=== PATIENT | male | born 1940 | race Caucasian/White ===

== ENCOUNTER 2017-02-04 13:30 | Inpatient (IN) | payer MEDICARE, BC ==
[2017-02-04] MEDS: SODIUM CHLORIDE 0.9% 1,000 ML IV SCH (15:53)
[2017-02-04 16:02] LABS: Basophils % (A) 0 %; CH 32.2; CHCM 34.4; Eosinophils # (A) 0.2 k/uL (0-0.7); Eosinophils % (A) 3 %; HCT 37.2 % (39.0-53.0); HGB 12.9 gm/dL (13.0-17.5); Luc # (Auto) 0.14; Luc % (Auto) 2; Lymphocytes # (A) 0.8 k/uL (1.0-4.8); Lymphocytes % (A) 12 %; MCH 32.6 pg (25.0-35.0); MCHC 34.7 g/dL (31.0-37.0); Monocytes # (A) 0.5 k/uL (0-1.0); Monocytes % (A) 7 %; Neutrophils # (A) 5.2 k/uL (1.3-7.7); Neutrophils % (A) 75 %; RBC 3.96 m/uL (4.30-5.90); RDW 13.2 % (11.5-15.5); WBC 6.9 k/uL (3.8-10.6); WBC (Perox) 7.45
[2017-02-04 16:07] LABS: INR 1.1 (<1.1); Prothrombin Time 10.8 sec (9.0-12.0)
[2017-02-04 16:15] LABS: Calcium 8.7 mg/dL (8.4-10.2); Potassium 4.5 mmol/L (3.5-5.1); Total Bilirubin 0.7 mg/dL (0.2-1.3); Total Protein 6.5 g/dL (6.3-8.2)
[2017-02-04] MEDS ORDERED: PIPERACILLIN-TAZOBACTAM 3.375 GM in DEXTROSE/WATER 1 50ML.BAG IVPB STA (16:44)
[2017-02-04] MEDS ORDERED: IPRATROPIUM BROMIDE 0.06% NASAL SPRAY (15 ML) EA NOSTRIL PRN (16:45)
[2017-02-04] MEDS: ISOSORBIDE MONONITRATE ER 30 MG TAB.ER.24H PO SCH (18:01)
[2017-02-04] MEDS: FUROSEMIDE 80 MG TAB PO SCH (18:01)
[2017-02-04] MEDS: CARVEDILOL 12.5 MG TAB PO SCH (18:01)
--- NOTE | 2017-02-04 19:08 | XR ---
EXAMINATION TYPE: XR foot complete RT DATE OF EXAM: 02/04/2017 5:41 PM COMPARISON: NONE HISTORY: Attention right great toe for osteomyelitis TECHNIQUE: AP and lateral and oblique radiographs FINDINGS: Semination of the great toe shows no cortical disruption and no focal osteopenia. Therefore , no radiographic evidence of osteomyelitis. The joints are unremarkable other than scattered relatively mild osteoarthritis changes. The soft tissues show prominently calcified arterial structures throughout the foot, consistent with widespread atherosclerosis. There are is no soft tissue emphysema, no radiopaque foreign body, and no definite focal soft tissue finding. IMPRESSION: Negative for radiographic evidence of osteomyelitis.
[2017-02-04 20:31] LABS: Glucose,Whole Blood 189 mg/dL (75-99)
[2017-02-04] MEDS ORDERED: [UNRECOGNIZED DRUG - OTHER] PO SCH (21:00)
[2017-02-04] MEDS: hydrALAZINE HCL 50 MG TAB PO SCH (22:13)
[2017-02-04] MEDS: ASCORBIC ACID 500 MG TAB PO SCH (22:14)
[2017-02-04] MEDS: GABAPENTIN 300 MG CAP PO SCH (22:14)
[2017-02-04] MEDS: INSULIN LISPRO (humaLOG) 300 UNIT/3 ML VIAL SQ SCH (23:15)
[2017-02-04] MEDS: INSULIN GLARGINE 100 UNIT/ML 10 ML VIAL SQ SCH (23:15)
[2017-02-05 07:27] LABS: Glucose,Whole Blood 153 mg/dL (75-99)
[2017-02-05] MEDS ORDERED: INSULIN LISPRO (humaLOG) 300 UNIT/3 ML VIAL SQ SCH (07:30)
[2017-02-05] MEDS: CARVEDILOL 12.5 MG TAB PO SCH ×2 (08:20→16:20)
[2017-02-05] MEDS: SODIUM CHLORIDE 0.9% 1,000 ML IV SCH ×2 (08:20→13:48)
[2017-02-05] MEDS: INSULIN LISPRO (humaLOG) 300 UNIT/3 ML VIAL SQ SCH ×4 (08:21→21:23)
[2017-02-05] MEDS: ASPIRIN 81 MG CHEW PO SCH (08:22)
[2017-02-05] MEDS: PANTOPRAZOLE 40 MG TABLET PO SCH (08:22)
--- NOTE | 2017-02-05 08:22 | HP ---
DATE OF ADMISSION: CHIEF COMPLAINT: A 76-year-old white male being admitted with failed outpatient treatment for abscess, cellulitis diabetic wound infection in the right great toe with a huge ulceration anteriorly. HISTORY OF PRESENT ILLNESS: This is a 76-year-old white male with long-standing diabetes mellitus, hypertension, coronary artery disease, GERD, obesity, hypertension with actually good control of his diabetes with a recent hemoglobin A1c in the sixes. He developed apparently a diabetic wound infection for the past 2 weeks, progressively worsening with open purulent exudate coming out of the anterior great toe on the right foot to point with significant infection in the entire right toe ( ) up to his mid foot. At which time, he was admitted with IV antibiotics with infectious disease consult and vascular surgery consult. Home medications include: 1. Aspirin 81 daily. 2. Coreg 25 b.i.d. 3. Multiple vitamins. 4. Folic acid 0.5 mg daily. 5. Lasix 80 mg b.i.d. 6. Neurontin 300 b.i.d. 7. Apresoline 50 ( ). 8. Lantus 30 units subcu b.i.d. 9. Atrovent nasal spray daily. 10. Imdur 30 daily. 11. Singulair 10 daily. 12. Protonix 40 daily. REVIEW OF SYSTEMS: Fourteen-point review of systems negative except for as mentioned in HPI. PHYSICAL EXAM: Temp 97 to 98, pulse is 70s, respirations 16 to 20, blood pressure is 150s to 170s over 70s to 80s. O2 is 95% on room air. ENDOCRINE: BMI is over 40. CARDIOVASCULAR: S1, S2. Lungs show scattered wheeze, otherwise clear. GI is distended, obesity. Extremities show great toe red to the mid foot and the entire right great toe is red with a 0.25 cm ulceration of the anterior great toe. ASSESSMENT: 1. Acute diabetic wound infection, diabetic ulcer, rule out osteomyelitis of the great toe extending to the mid foot. IV antibiotics have been started. ( ) infectious disease and vascular surgery consultation. 2. Accu-Chek protocol ( ) for diabetes mellitus. 3. Hypertension. 4. Coronary artery disease will be treated with home medications.
[2017-02-05] MEDS: FAMOTIDINE 20 MG TAB PO SCH (08:23)
[2017-02-05] MEDS: MONTELUKAST 10 MG TAB PO SCH (08:23)
[2017-02-05] MEDS: ASCORBIC ACID 500 MG TAB PO SCH ×3 (08:23→21:23)
[2017-02-05] MEDS: hydrALAZINE HCL 50 MG TAB PO SCH ×3 (08:23→21:25)
[2017-02-05] MEDS: GABAPENTIN 300 MG CAP PO SCH ×2 (08:24→21:23)
[2017-02-05] MEDS: FUROSEMIDE 80 MG TAB PO SCH ×2 (08:24→16:20)
[2017-02-05] MEDS: INSULIN GLARGINE 100 UNIT/ML 10 ML VIAL SQ SCH ×2 (08:25→21:22)
[2017-02-05 08:58] LABS: Prothrombin Time 10.6 sec (9.0-12.0)
[2017-02-05] MEDS ORDERED: NON-FORMULARY DRUG (Omega-3 Fatty Acids/Fish Oil [Fish Oil 1,000 Mg Softgel] 1 CAP) PO SCH (09:00)
[2017-02-05] MEDS ORDERED: NON-FORMULARY DRUG (Ubidecarenone [Co Q-10] 30 MG) PO SCH (09:00)
[2017-02-05 10:37] LABS: Hemoglobin A1C 5.8 % (4.2-6.1)
--- NOTE | 2017-02-05 11:53 | P.PN ---
Subjective 76-year-old male seen and examined this morning currently sitting on the edge of the bed. This gentleman was a direct admission from Dr. Knapp's office after patient was being seen for diabetic wound in the right great toe failed outpatient treatment currently there is a infectious disease as well as a vascular consultation requested. Patient stated that he developed the injury to the right great toe 2 weeks ago. He stated it got progressively worse was draining purulent drainage from the anterior portion of the right great toe. There was significant tenderness. On admission the patient did have an x-ray done of the right great told to evaluate for osteomyelitis he was negative by radiographic evidence of osteomyelitis Objective - Vital Signs Vital signs: Vital Signs Temp 97.4 F L 02/05/17 07:00 Pulse 72 02/05/17 08:00 Resp 16 02/05/17 08:00 BP 174/79 02/05/17 07:00 Pulse Ox 95 02/05/17 07:00 Intake & Output 02/04/17 02/05/17 02/05/17 18:59 06:59 18:59 Intake Total 1515 Balance 1515 Weight 96.615 kg 96.615 kg Intake: IV 675 Sodium Chloride 0.9% 1, 675 000 ml @ 75 mls/hr IV . [id number] [facility] Rx#:[id number] Oral 840 Other: Voiding Method Toilet Toilet # Voids 1 1 - Exam Physical exam 76-year-old man sitting up on the edge of the bed appears in no acute distress pleasant cooperative oriented 3 Lungs essentially clear adequate air movement no shortness of breath on room air Heart S1-S2 audible and regular denying chest pain Abdomen soft nontender Extremities upper extremities unremarkable dressing to the right great toe dry - Labs CBC & Chem 7: 02/04/17 15:45 02/04/17 15:45 Labs: Abnormal Lab Results - Last 24 Hours (Table) 02/04/17 02/04/17 02/04/17 Range/Units 15:45 15:45 20:30 RBC 3.96 L (4.30-5.90) m/uL Hgb 12.9 L (13.0-17.5) gm/dL Hct 37.2 L (39.0-53.0) % Plt Count 131 L (150-450) k/uL Lymphocytes # 0.8 L (1.0-4.8) k/uL BUN 67 H (9-20) mg/dL Creatinine 2.65 H (0.66-1.25) mg/dL Glucose 123 H (74-99) mg/dL POC Glucose (mg/dL) 189 H (75-99) mg/dL 02/05/17 Range/Units 07:25 RBC (4.30-5.90) m/uL Hgb (13.0-17.5) gm/dL Hct (39.0-53.0) % Plt Count (150-450) k/uL Lymphocytes # (1.0-4.8) k/uL BUN (9-20) mg/dL Creatinine (0.66-1.25) mg/dL Glucose (74-99) mg/dL POC Glucose (mg/dL) 153 H (75-99) mg/dL Assessment and Plan Plan: Impression X-ray right foot negative for evidence of osteomyelitis Present on admission acute diabetic wound infection right great toe failed outpatient treatment Hypertension Present on admission ulcerative area to the right anterior great toe Type 2 diabetes insulin requiring hemoglobin A1c 5.1 Plan Await infectious diseases recommendations [facility] Await vascular surgery's recommendations currently pending Resume home meds as appropriate Monitor blood sugars address as indicated DVT and GI prophylaxis Further recommendations pendingThe above dictated assessment and findings were discussed with dr ra Loya and the plan of care have been dictated as directed. She Liu nurse practitioner acting as a scribe for dr knapp.
[2017-02-05 11:57] VITALS: BMI 31.4
[2017-02-05 12:02] LABS: Glucose,Whole Blood 202 mg/dL (75-99)
[2017-02-05] MEDS: CHOLECALCIFEROL 1,000 UNIT TAB PO SCH (12:21)
[2017-02-05] MEDS: FOLIC ACID 1 MG TAB PO SCH (12:22)
[2017-02-05] MEDS: CYANOCOBALAMIN 500 MCG TAB PO SCH (12:22)
[2017-02-05] MEDS: HEPARIN SODIUM,PORCINE 5,000 UNIT/ML 1 ML VIAL SQ SCH ×2 (13:47→23:52)
[2017-02-05] MEDS ORDERED: PIPERACILLIN-TAZOBACTAM 3.375 GM in DEXTROSE/WATER 1 50ML.BAG IVPB SCH (16:00)
[2017-02-05] MEDS: AMPICILLIN-SULBACTAM 3 GM in SODIUM CHLORIDE 0.9% 100 ML IVPB SCH ×2 (16:17→23:51)
--- NOTE | 2017-02-05 16:27 | CONS ---
DATE OF CONSULTATION: 02/05/2017 REASON FOR CONSULTATION: Left big toe wound. HISTORY OF PRESENT ILLNESS: The patient is a 76-year-old male with a past medical history significant for diabetes mellitus. The patient did develop a blister on the dorsal aspect of his left big toe a few weeks ago. The patient has been using some old shoes and may have caused some trauma to it, with development of this blister. The blister opened up, leading to a wound. The patient said that the area was becoming more swollen and red, hot. The patient does have diabetic neuropathy and denies any significant pain there. There is no significant drainage from it. The patient denies any high-grade fever or chills. The patient does mention there was some purulent material coming out of it. With these symptoms, the patient was evaluated by his PCP in the office. The patient was subsequently admitted directly to the hospital and started on Zosyn. I was asked to see the patient for further recommendation regarding antibiotic therapy. REVIEW OF SYSTEMS: CONSTITUTIONAL: Positive for weakness. No high-grade fever. EYES: No complaint. ENT: No complaint. RESPIRATORY: No complaint. CARDIOVASCULAR: No complaint. GENITOURINARY: No complaint. GASTROINTESTINAL: No complaint. MUSCULOSKELETAL: As per HPI. INTEGUMENTARY: As per HPI. PSYCHOLOGIC: No complaint. ENDOCRINE: No complaint. NEUROLOGIC: No complaint. Past medical history is significant for: 1. Diabetes mellitus. 2. Coronary artery disease. 3. Hypertension. 4. Gastroesophageal reflux disease. 5. Asthma. SOCIAL HISTORY: Remote history of smoking. No drinking or drug use. FAMILY HISTORY: No pertinent findings were noticed. ALLERGIES: NO KNOWN DRUG ALLERGIES. Medications currently include: 1. Aspirin. 2. Coreg. 3. Vitamin D3. 4. Vitamin B12. 5. Pepcid. 6. Folic acid. 7. Lasix. 8. Neurontin. 9. Heparin. 10. Hydralazine. 11. Lantus. 12. Humalog. 13. Imdur. 14. Singulair. 15. Protonix. 16. Piperacillin tazobactam. On examination, blood pressure is 174/79 with a pulse of 73, temperature 97.4. He is 95% on room air. General description is an elderly male lying in bed in no distress. No tachypnea or accessory muscle of respiration use. HEENT examination shows slight pallor. No scleral icterus. Oral mucous membrane is dry. NECK: Trachea is central. No thyromegaly. LUNGS: Unlabored breathing. Clear to auscultation anteriorly. No wheeze or crackle. HEART: S1, S2. Regular rate and rhythm. ABDOMEN: Soft. No tenderness. EXTREMITIES: No edema of feet. Examination of the left big toe did show a wound on the dorsum aspect with a slight amount of slough tissue, some surrounding erythema. No foul-smelling drainage was noticed. NEUROLOGICAL: Patient is awake, alert, oriented x3. Mood and affect normal. LABS: Hemoglobin is 12.3, white count 6.9 with a BUN of 67, creatinine 2.65. No culture has been obtained. DIAGNOSTIC IMPRESSION AND PLAN: Patient with a left diabetic foot ulcer on the dorsal aspect of the left big toe in a patient with underlying diabetes, not exposed to any antibiotics in the recent past; could be more likely a sensitive pathogen; more likely a Gram-positive; however, a Gram-negative is not excluded in view of underlying diabetes mellitus. With the chronicity of this wound, we will have to make sure there is no evidence of any osteomyelitis. PLAN: 1. Wound culture has been obtained, both aerobic and anaerobic. Will obtain blood cultures at this time. 2. Antibiotic will be adjusted to Unasyn 3 grams q.8 to adjust for his kidney function. 3. Will obtain a bone scan of his left foot to make sure there is no evidence of any osteomyelitis. 4. Local wound care with the Santyl followed by moist dressing. 5. Will follow up on the clinical condition and cultures to further adjust medication if needed. Thank you for this consultation. Will follow this patient along with you.
[2017-02-05 17:28] LABS: Glucose,Whole Blood 111 mg/dL (75-99)
[2017-02-05] MEDS: ISOSORBIDE MONONITRATE ER 30 MG TAB.ER.24H PO SCH (17:28)
[2017-02-05 21:24] LABS: Glucose,Whole Blood 197 mg/dL (75-99)
[2017-02-05] MEDS: COLLAGENASE 250 UNIT/GM OINTMENT 30 GM TUBE TOPICAL SCH (21:24)
[2017-02-06 07:18] LABS: Glucose,Whole Blood 97 mg/dL (75-99)
[2017-02-06] MEDS: INSULIN LISPRO (humaLOG) 300 UNIT/3 ML VIAL SQ SCH ×4 (07:28→20:33)
[2017-02-06] MEDS: AMPICILLIN-SULBACTAM 3 GM in SODIUM CHLORIDE 0.9% 100 ML IVPB SCH ×2 (07:29→19:54)
[2017-02-06] MEDS: PANTOPRAZOLE 40 MG TABLET PO SCH (07:29)
--- NOTE | 2017-02-06 07:32 | NM ---
EXAMINATION TYPE: NM bone 3 phase DATE OF EXAM: 02/05/2017 10:42 PM COMPARISON: Correlation radiographs 02/04/2017 HISTORY: 76-year-old male with pain at the left great toe, lateral aspect (per the provided history o n the work sheet) for 2 weeks. Nonhealing ulcer, evaluate for osteomyelitis. TECHNIQUE: Triple phase bone scintigraphy was performed following the injection of24.2 mCi Tc 99m MDP . Immediate images and 5 hours post injection images acquired. Imaging is performed of the bilateral distal lower extremities. FINDINGS: Flow images show focal hyperemia involving the left great toe. There is increased focal activity in t his location on pool imaging as well. On delayed images, focal increased tracer activity is noted in this region. Additional delayed uptake seen at the right great toe and bilateral midfoot regions suggestive of a d egenerative etiology. IMPRESSION: There is three-phase bone scan abnormality involving the left great toe. In the correct clinical set ting, findings would suggest osteomyelitis.
[2017-02-06] MEDS: MONTELUKAST 10 MG TAB PO SCH (07:39)
[2017-02-06] MEDS: HEPARIN SODIUM,PORCINE 5,000 UNIT/ML 1 ML VIAL SQ SCH ×3 (07:40→23:54)
[2017-02-06] MEDS: ASCORBIC ACID 500 MG TAB PO SCH ×3 (07:40→20:35)
[2017-02-06] MEDS: FUROSEMIDE 80 MG TAB PO SCH ×2 (07:40→17:08)
[2017-02-06] MEDS: GABAPENTIN 300 MG CAP PO SCH ×2 (07:40→20:35)
[2017-02-06] MEDS: ASPIRIN 81 MG CHEW PO SCH (07:40)
[2017-02-06] MEDS: FAMOTIDINE 20 MG TAB PO SCH (07:40)
[2017-02-06] MEDS: CARVEDILOL 12.5 MG TAB PO SCH ×2 (07:46→17:10)
[2017-02-06] MEDS: COLLAGENASE 250 UNIT/GM OINTMENT 30 GM TUBE TOPICAL SCH (07:47)
[2017-02-06] MEDS: hydrALAZINE HCL 50 MG TAB PO SCH ×3 (07:48→20:35)
[2017-02-06] MEDS: INSULIN GLARGINE 100 UNIT/ML 10 ML VIAL SQ SCH ×2 (07:55→20:35)
[2017-02-06 09:10] LABS: Calcium 8.9 mg/dL (8.4-10.2); Potassium 4.1 mmol/L (3.5-5.1); Total Bilirubin 0.7 mg/dL (0.2-1.3); Total Protein 6.5 g/dL (6.3-8.2)
[2017-02-06 12:20] LABS: Glucose,Whole Blood 173 mg/dL (75-99)
[2017-02-06] MEDS: FOLIC ACID 1 MG TAB PO SCH (12:50)
[2017-02-06] MEDS: CHOLECALCIFEROL 1,000 UNIT TAB PO SCH (12:51)
[2017-02-06] MEDS: CYANOCOBALAMIN 500 MCG TAB PO SCH (12:51)
[2017-02-06] MEDS: SODIUM CHLORIDE 0.9% 1,000 ML IV SCH (17:06)
[2017-02-06 17:33] LABS: Glucose,Whole Blood 164 mg/dL (75-99)
[2017-02-06] MEDS: ISOSORBIDE MONONITRATE ER 30 MG TAB.ER.24H PO SCH (18:23)
[2017-02-06 20:38] LABS: Glucose,Whole Blood 166 mg/dL (75-99)
[2017-02-06] MEDS ORDERED: hydrALAZINE HCL 50 MG TAB PO ONE (20:45)
--- NOTE | 2017-02-06 20:53 | PN ---
SUBJECTIVE: This is a 76-year-old white male who presents with osteomyelitis of the great toe. He remains on Unasyn IV at this time q.6 hours. Bone scan shows positive osteomyelitis in the great toe. Santyl is being applied to open wound. IV Unasyn is being continued. The patient continues to improve. VITAL SIGNS: Stable, afebrile. CARDIOVASCULAR: S1, S2. Lungs clear. Creatinine ( ) GFR is 29, which is increased from recent. Await PICC line placed on Wednesday and home IV antibiotics is being set up. Continue with wound dressings as tolerated. Blood pressure, hypertension acceleration due to osteomyelitis and osteomyelitis of the great toe. Hydralazine will be increased from 50 to 75 mg t.i.d. Continue next treatment.
[2017-02-07] MEDS: CARVEDILOL 12.5 MG TAB PO SCH ×2 (07:27→17:37)
[2017-02-07] MEDS: GABAPENTIN 300 MG CAP PO SCH ×2 (07:27→21:01)
[2017-02-07] MEDS: ASPIRIN 81 MG CHEW PO SCH (07:27)
[2017-02-07] MEDS: FUROSEMIDE 80 MG TAB PO SCH ×2 (07:27→16:22)
[2017-02-07] MEDS: HEPARIN SODIUM,PORCINE 5,000 UNIT/ML 1 ML VIAL SQ SCH ×3 (07:28→23:20)
[2017-02-07] MEDS: PANTOPRAZOLE 40 MG TABLET PO SCH (07:28)
[2017-02-07] MEDS: ASCORBIC ACID 500 MG TAB PO SCH ×3 (07:28→21:01)
[2017-02-07] MEDS: hydrALAZINE HCL 25 MG TAB PO SCH ×3 (07:29→21:03)
[2017-02-07] MEDS: INSULIN LISPRO (humaLOG) 300 UNIT/3 ML VIAL SQ SCH ×4 (07:29→21:01)
[2017-02-07] MEDS: COLLAGENASE 250 UNIT/GM OINTMENT 30 GM TUBE TOPICAL SCH (07:30)
[2017-02-07 07:35] LABS: Glucose,Whole Blood 119 mg/dL (75-99)
[2017-02-07] MEDS: INSULIN GLARGINE 100 UNIT/ML 10 ML VIAL SQ SCH ×2 (07:42→21:00)
[2017-02-07] MEDS: FAMOTIDINE 20 MG TAB PO SCH (07:47)
[2017-02-07] MEDS: MONTELUKAST 10 MG TAB PO SCH (07:47)
[2017-02-07 07:55] LABS: Basophils % (A) 0 %; CH 32.1; CHCM 33.7; Eosinophils # (A) 0.2 k/uL (0-0.7); Eosinophils % (A) 4 %; HDW 2.97; HGB 12.6 gm/dL (13.0-17.5); Luc # (Auto) 0.14; Luc % (Auto) 2; Lymphocytes # (A) 0.7 k/uL (1.0-4.8); Lymphocytes % (A) 11 %; MCH 31.8 pg (25.0-35.0); MCHC 33.2 g/dL (31.0-37.0); MCV 95.6 fL (80.0-100.0); Mean Platelet Volume 7.1; Monocytes # (A) 0.4 k/uL (0-1.0); Monocytes % (A) 6 %; Neutrophils # (A) 4.8 k/uL (1.3-7.7); Neutrophils % (A) 77 %; RBC 3.97 m/uL (4.30-5.90); RDW 13.3 % (11.5-15.5); WBC 6.3 k/uL (3.8-10.6); WBC (Perox) 6.64
[2017-02-07 08:23] LABS: Total Bilirubin 0.7 mg/dL (0.2-1.3); Total Protein 6.5 g/dL (6.3-8.2)
[2017-02-07] MEDS: AMPICILLIN-SULBACTAM 3 GM in SODIUM CHLORIDE 0.9% 100 ML IVPB SCH ×2 (09:15→21:00)
[2017-02-07 12:09] LABS: Glucose,Whole Blood 203 mg/dL (75-99)
[2017-02-07] MEDS: CYANOCOBALAMIN 500 MCG TAB PO SCH (12:21)
[2017-02-07] MEDS: CHOLECALCIFEROL 1,000 UNIT TAB PO SCH (12:21)
[2017-02-07] MEDS: FOLIC ACID 1 MG TAB PO SCH (12:22)
[2017-02-07] MEDS: SODIUM CHLORIDE 0.9% 1,000 ML IV SCH (16:16)
[2017-02-07 16:28] VITALS: TEMP 98.2
[2017-02-07 17:03] LABS: Glucose,Whole Blood 144 mg/dL (75-99)
[2017-02-07] MEDS: ISOSORBIDE MONONITRATE ER 30 MG TAB.ER.24H PO SCH (17:37)
--- NOTE | 2017-02-07 18:36 | PN ---
SUBJECTIVE: A 76-year-old white male who wound with positive osteomyelitis. Remains on IV antibiotics. Awaiting PICC line placement tomorrow and infectious disease recommendations for long-term PICC line antibiotics. His GFR is 24 today with creatinine 2.61. Glucose has been 100s. CARDIOVASCULAR: S1, S2. LUNGS: Clear. GI: Soft. HEMATOLOGIC: Negative Homans. PSYCHIATRIC: Fair mood and affect. ASSESSMENT: 1. Osteomyelitis of the great toe of the right foot, waiting PICC line placement, long-term antibiotics be given. 2. Diabetes mellitus. 3. Hypertension are controlled. 4. Obesity, weight loss counseling was given.
[2017-02-07 20:30] LABS: Glucose,Whole Blood 175 mg/dL (75-99)
[2017-02-07 22:29] VITALS: RESP 16
[2017-02-08 07:35] LABS: Glucose,Whole Blood 101 mg/dL (75-99)
[2017-02-08 08:20] VITALS: BP 161/74; PULSE 74
[2017-02-08] MEDS: CARVEDILOL 12.5 MG TAB PO SCH (08:24)
[2017-02-08] MEDS: hydrALAZINE HCL 25 MG TAB PO SCH (08:25)
[2017-02-08] MEDS: INSULIN LISPRO (humaLOG) 300 UNIT/3 ML VIAL SQ SCH ×2 (08:25→12:00)
[2017-02-08] MEDS: GABAPENTIN 300 MG CAP PO SCH (08:25)
[2017-02-08] MEDS: PANTOPRAZOLE 40 MG TABLET PO SCH (08:26)
[2017-02-08] MEDS: MONTELUKAST 10 MG TAB PO SCH (08:26)
[2017-02-08 08:32] LABS: Calcium 9.1 mg/dL (8.4-10.2); Potassium 4.1 mmol/L (3.5-5.1); Total Bilirubin 0.7 mg/dL (0.2-1.3); Total Protein 6.7 g/dL (6.3-8.2)
[2017-02-08] MEDS: HEPARIN SODIUM,PORCINE 5,000 UNIT/ML 1 ML VIAL SQ SCH (08:33)
[2017-02-08] MEDS: ASCORBIC ACID 500 MG TAB PO SCH (08:33)
[2017-02-08] MEDS: AMPICILLIN-SULBACTAM 3 GM in SODIUM CHLORIDE 0.9% 100 ML IVPB SCH (08:33)
[2017-02-08] MEDS: FAMOTIDINE 20 MG TAB PO SCH (08:34)
[2017-02-08] MEDS: ASPIRIN 81 MG CHEW PO SCH (08:34)
--- NOTE | 2017-02-08 08:51 | PN ---
DATE OF SERVICE: 02/07/2017 REASON FOR FOLLOW-UP: Left big toe osteomyelitis. INTERVAL HISTORY: The patient is afebrile. He has been breathing comfortably. Denies significant chest pain or cough. No abdominal pain or any worsening pain in the foot area. On examination, blood pressure is 147/67 with a pulse of 75, temperature 98.2, he is 95% on room air. General description is an elderly male up in the chair in no distress. RESPIRATORY SYSTEM: Unlabored breathing. Clear to auscultation anteriorly. HEART: S1, S2. Regular rate and rhythm. ABDOMEN: Soft, no tenderness. Left big toe with minimal slough tissue on the wound and surrounding redness and swelling has improved. LABS: Hemoglobin 12.6, white count 6.3. BUN is 15, creatinine is 2.61. Wound culture with normal skin tammie. The bone scan is suspicious for osteomyelitis. DIAGNOSTIC IMPRESSION AND PLAN: Patient with left big toe wound with underlying osteomyelitis. PLAN: At this time is to get a PICC line for outpatient IV antibiotic therapy. Continue local wound care with Santyl and continue with IV Unasyn at this point. Continue supportive care. ESTHERD
--- NOTE | 2017-02-08 10:38 | IR ---
PICC LINE PLACEMENT: HISTORY: Infection requiring long-term antibiotic therapy PROCEDURE: Ultrasound and fluoroscopic guidance of PICC line placement. COMPLICATIONS: None ANESTHESIA: 1. 1% Lidocaine locally. FINDINGS/TECHNIQUE: The procedure was explained to the patient. The risks, complications, benefits and alternatives were discussed and any questions were answered. Informed consent was obtained. The patient was placed supine on the fluoroscopic table and prepped and draped in the usual sterile [facility] ion. Utilizing a 21 gauge needle and sonographic and fluoroscopic guidance, access in the vein was achieved and there is placement of a 0.018 guidewire. The vein is patent. A 4-F sheath was placed o yang the guidewire. The guidewire and dilator were removed and a 4-F. PICC line was placed through th e sheath with the tip at the level of the SVC. The sheath was removed, the catheter was flushed and sutured into position. The patient was stable throughout the procedure and remained stable upon disc harge from the Department of Radiology. The vein puncture was patent under ultrasound. A du scale image was obtained to document patency of the vein punctured. All elements of the maximal barrier technique were utilized. FLUOROSCOPY TIME: 0.3 minute IMPRESSION: Successful PICC line placement under ultrasound and fluoroscopic guidance.
[2017-02-08 11:41] LABS: Glucose,Whole Blood 130 mg/dL (75-99)
[2017-02-08] MEDS: COLLAGENASE 250 UNIT/GM OINTMENT 30 GM TUBE TOPICAL SCH (11:59)
[2017-02-08] MEDS: INSULIN GLARGINE 100 UNIT/ML 10 ML VIAL SQ SCH (12:00)
[2017-02-08] MEDS: CYANOCOBALAMIN 500 MCG TAB PO SCH (12:21)
[2017-02-08] MEDS: FOLIC ACID 1 MG TAB PO SCH (12:21)
[2017-02-08] MEDS: FUROSEMIDE 80 MG TAB PO SCH (12:21)
[2017-02-08] MEDS: CHOLECALCIFEROL 1,000 UNIT TAB PO SCH (12:21)
--- NOTE | 2017-02-08 12:54 | P.DS ---
Providers Date of admission: 02/04/17 14:57 Expected date of discharge: 02/08/17 Attending physician: Adán Knapp Consults: 02/04/17 15:21 Consult Physician Urgent Consulting Provider: Selene Garcia Consult Reason/Comments: Cellulitis left foot Do you want consulting provider notified?: Yes 02/04/17 16:50 Consult Physician Routine Consulting Provider: Dale Hooker Consult Reason/Comments: toe ulcer Do you want consulting provider notified?: Yes Primary care physician: [facility] Course: 76-year-old gentleman who was a direct admit from Dr. Knapp's office on the day of admission. Patient was being seen in the office and a follow-up visit for right great toe ulceration failed outpatient treatment. Patient stated that he developed an injury to the right great toe 2 weeks prior. Had gotten progressively worse. Had develop. Drainage from the anterior portion of the right great toe with significant tenderness. On admission the x-rays of the right rate toe were negative by radiographic evidence of osteomyelitis. An infectious disease consultation was requested the patient did undergo a bone scan it did show abnormality noted of the left great toe. The findings were suggestive of osteomyelitis. Dr. Calderon he did see patient on consultation. Apparently the patient had been wearing some old shoes and this may have been causing the trauma with the development of the blister when the blister opened that led to the wound. As mentioned the patient stated this became more symptomatic. Patient does have a history of diabetic neuropathy. Patient was seen by infectious disease who recommended IV antibiotic therapy infectious disease recommended a PICC line for outpatient IV antibiotic therapy. Local wound care would be cental continue with IV Unasyn continue supportive care. Patient was felt to be hemodynamically stable and appropriate proceed with a discharge to home Impression discharge diagnoses Present on admission acute diabetic wound infection involving the left great toe failed outpatient treatment Present on admission ulcerative area to the left anterior great toe suspect due to trauma Hypertension essential Type 2 diabetes insulin requiring hemoglobin A1c 5.1 Bone scan involving the left great toe suggestive of osteomyelitis Present on admission nonhealing ulcerative area left great toe likely due to osteomyelitis Obesity BMI 31 The above dictated assessment and findings were discussed with dr knapp Impression and the plan of care have been dictated as directed. She Liu nurse practitioner acting as a scribe for dr knapp Plan - Discharge Summary New Discharge Prescriptions: Collagenase [Santyl] 1 applic TOPICAL DAILY #30 dose hydrALAZINE HCL [Apresoline] 75 mg PO TID #90 tab Discharge Medication List Carvedilol 25 mg PO BID 11/12/15 [History] Famotidine 20 mg PO DAILY 11/12/15 [History] Folic Acid 0.4 mg PO DAILY 11/12/15 [History] Furosemide [Lasix] 80 mg PO BID 11/12/15 [History] Gabapentin [Neurontin] 300 mg PO BID 11/12/15 [History] Gluc/Axel-MSM#1/C/Matias/Sam/Bor [Glucosamine-Chondroitin Tablet] 2 tab PO BID [History] Isosorbide Mononitrate [Isosorbide Mononitrate ER] 30 mg PO DAILY@1800 11/12/15 [History] Montelukast [Singulair] 10 mg PO DAILY 11/12/15 [History] Omeprazole [PriLOSEC] 20 mg PO DAILY 11/12/15 [History] Vitamin E (Dl,Tocopheryl Acet) [Vitamin E] 400 unit PO DAILY 11/12/15 [History] Ascorbic Acid [Vitamin C] 1,000 mg PO TID 02/04/17 [History] Aspirin EC [Ecotrin Low Dose] 81 mg PO DAILY 02/04/17 [History] Cholecalciferol [Vitamin D3] 1,000 unit PO DAILY 02/04/17 [History] Cyanocobalamin [Vitamin B-12] 500 mcg PO DAILY 02/04/17 [History] Ipratropium Reynolds 0.06%Nasal [Atrovent Nasal 0.06%] 2 spray EA NOSTRIL QAM PRN 02/04/17 [History] [place]-3 Fatty Acids/Fish Oil [Fish Oil 1,000 mg Softgel] 1 cap PO DAILY [History] Ubidecarenone [Co Q-10] 30 mg PO DAILY 02/04/17 [History] Ampicillin-Sulbactam [Unasyn] 3 gm IVPB Q12HR #0 vial 02/08/17 [Rx] Collagenase [Santyl] 1 applic TOPICAL DAILY #30 dose 02/08/17 [Rx] hydrALAZINE HCL [Apresoline] 75 mg PO TID #90 tab 02/08/17 [Rx] Follow up Appointment(s)/Referral(s): [facility], [NON-STAFF] - As Needed [facility], [REFERRING] - As Needed Dale Hooker DO [Doctor of Osteopathic Medicine] - 02/10/17 (Patient to see Dr. Hooker in the Wound center on Wednesday. Please call tomorrow and confirm appointment time) Adán Knapp MD [Primary Care Provider] - 02/10/17 Discharge Disposition: HOME WITH HOME HEALTH SERVICES
--- NOTE | 2017-02-08 21:24 | PN ---
DATE OF SERVICE: 02/08/2017 REASON FOR FOLLOWUP: Left big toe wound with secondary osteomyelitis. INTERVAL HISTORY: The patient is afebrile. He was seen on rounds this morning. The patient has been waiting for outpatient IV antibiotic therapy for discharge. The patient denies significant chest pain, shortness of breath or cough. No abdominal pain and no significant pain in the left big toe. On examination, blood pressure is 116/74 with a pulse of 74, temperature 98.2. He is 96% on room air. General description is an elderly male, up in the chair in no distress. RESPIRATORY SYSTEM: Unlabored breathing. Clear to auscultation anteriorly. HEART: S1, S2. Regular rate and rhythm. ABDOMEN: Soft. No tenderness. Left big toe was swollen, though slough tissue has decreased. Redness has decreased. LABS: BUN of 69, creatinine 2.70. Sed rate of 22. Wound culture with normal skin tammie. Blood culture negative. DIAGNOSTIC IMPRESSION AND PLAN: Patient with left big toe osteomyelitis, likely from Gram-positive skin tammie in a patient with underlying diabetes being on Unasyn. That will be continued 3 grams twice a day in view of his kidney function for another 6 weeks with weekly monitoring of CBC, BMP and sed rate. Local wound care with Santyl. Prescriptions were written for the patient. Follow up in the office in 2 weeks. DELMER
== END 2017-02-08 14:28 | disposition home health service (06) | DRG 638 ==
LOC: 5MS5E 14:57
PROVIDERS: ADMIT Family Medicine; ATTEND Family Medicine
PROC: 02HV33Z Insertion of Infusion Device into Superior Vena Cava, Percutaneous Approach (ICD-10-PCS; principal; 2017-02-08 10:01)
DX: E11.621 Type 2 diabetes mellitus with foot ulcer (principal); M86.9 Osteomyelitis, unspecified; E11.40 Type 2 diabetes mellitus with diabetic neuropathy, unspecified; I10 Essential (primary) hypertension; E11.69 Type 2 diabetes mellitus with other specified complication; L03.032 Cellulitis of left toe; E11.628 Type 2 diabetes mellitus with other skin complications; I25.10 Atherosclerotic heart disease of native coronary artery without angina pectoris; L97.529 Non-pressure chronic ulcer of other part of left foot with unspecified severity; R53.1 Weakness; E66.9 Obesity, unspecified; K21.9 Gastro-esophageal reflux disease without esophagitis; Z79.82 Long term (current) use of aspirin; Z79.4 Long term (current) use of insulin; Z79.899 Other long term (current) drug therapy; Z71.3 Dietary counseling and surveillance; Z68.31 Body mass index [BMI] 31.0-31.9, adult; Z79.2 Long term (current) use of antibiotics; Z87.891 Personal history of nicotine dependence
CPT/HCPCS: 36569; 76937; 77001; 78315; 80053; 83036; 85025; 85610; 85652; 87040; 87070; 87075; 87205

== ENCOUNTER → 2017-04-14 | Outpatient (CLI) | payer MEDICARE, BC ==
[2017-04-14 10:33] LABS: Basophils % (A) 0 %; CH 32.1; CHCM 34.6; Eosinophils # (A) 0.2 k/uL (0-0.7); Eosinophils % (A) 1 %; HDW 3.02; HGB 13.6 gm/dL (13.0-17.5); Luc # (Auto) 0.15; Luc % (Auto) 1; Lymphocytes # (A) 0.8 k/uL (1.0-4.8); Lymphocytes % (A) 7 %; MCH 31.8 pg (25.0-35.0); MCV 93.3 fL (80.0-100.0); Mean Platelet Volume 7.9; Monocytes # (A) 0.6 k/uL (0-1.0); Monocytes % (A) 5 %; Neutrophils # (A) 9.7 k/uL (1.3-7.7); Neutrophils % (A) 85 %; RBC 4.29 m/uL (4.30-5.90); RDW 14.2 % (11.5-15.5); WBC 11.4 k/uL (3.8-10.6); WBC (Perox) 11.43
[2017-04-14 12:57] LABS: C Reactive Protein 19.4 mg/L (<10.0); Calcium 9.3 mg/dL (8.4-10.2); Potassium 4.4 mmol/L (3.5-5.1)
[2017-04-14 14:17] LABS: Erythrocyte Sedimentation Rate 23 mm/hr (0-15)
== END | disposition home or self-care (01) ==
LOC: LABWHC1 09:56
PROVIDERS: ATTEND Internal Medicine Infectious Disease
DX: M86.8X8 Other osteomyelitis, other site (principal)
CPT/HCPCS: 36415; 80048; 85025; 85652; 86140

== ENCOUNTER → 2017-05-10 | Outpatient (CLI) | payer MEDICARE, BC ==
[2017-05-10 09:57] LABS: Basophils % (A) 0 %; CH 31.6; CHCM 34.3; Eosinophils # (A) 0.2 k/uL (0-0.7); Eosinophils % (A) 2 %; HCT 39.4 % (39.0-53.0); HDW 3.13; HGB 13.5 gm/dL (13.0-17.5); Luc % (Auto) 3; Lymphocytes # (A) 0.7 k/uL (1.0-4.8); Lymphocytes % (A) 9 %; MCH 31.8 pg (25.0-35.0); MCHC 34.3 g/dL (31.0-37.0); MCV 92.7 fL (80.0-100.0); Mean Platelet Volume 6.9; Monocytes # (A) 0.6 k/uL (0-1.0); Monocytes % (A) 7 %; Neutrophils # (A) 6.2 k/uL (1.3-7.7); Neutrophils % (A) 79 %; RBC 4.25 m/uL (4.30-5.90); RDW 13.4 % (11.5-15.5); WBC 7.9 k/uL (3.8-10.6); WBC (Perox) 8.01
[2017-05-10 10:36] LABS: C Reactive Protein 5.9 mg/L (<10.0); Magnesium 2.2 mg/dL (1.6-2.3); Potassium 4.6 mmol/L (3.5-5.1)
[2017-05-10 12:18] LABS: Erythrocyte Sedimentation Rate 22 mm/hr (0-15)
== END | disposition home or self-care (01) ==
LOC: LABWHC1 08:46
PROVIDERS: ATTEND Nurse Practitioner Adult Health
DX: S91.302A Unspecified open wound, left foot, initial encounter (principal); I47.2 Ventricular tachycardia
CPT/HCPCS: 36415; 80048; 83735; 85025; 85652; 86140

== ENCOUNTER → 2017-08-09 | Outpatient (CLI) | payer MEDICARE, BC ==
--- NOTE | 2017-08-09 16:06 | CT ---
EXAMINATION TYPE: CT cervical spine wo con DATE OF EXAM: 08/09/2017 COMPARISON: 10/15/2015 HISTORY: Neck and bilateral shoulder pain CT DLP: [address] of the cervical spine was performed with bone and soft tissue window settings submitted . Coronal and sagittal reconstruction is obtained. C2-3: Within normal limits. C3-4: Severe degenerative disc space narrowing. Posterior disc bulge with encapsulating spur resultin g in disc endplate complex. Effacement ventral thecal sac without disc herniation or central stenosis . Mild right foraminal encroachment. C4-5: Moderate degenerative disc space narrowing. Posterocentral subligamentous disc herniation effac es the ventral thecal sac. No evidence for central stenosis. Mild right-sided foraminal encroachment. C5-6: Moderate degenerative disc space narrowing. Broad-based disc bulge is unchanged. No evidence fo r central stenosis. Mild left-sided foraminal encroachment identified. C6-7: Severe degenerative disc space narrowing. Posterior disc bulge with encapsulating spur resultin g in disc endplate complex. No evidence for central stenosis. Moderate bilateral foraminal encroachme nt. C7-T1: Within normal limits. IMPRESSION: 1. Stable multilevel degenerative disc disease as discussed above.
== END | disposition home or self-care (01) ==
LOC: RADCTMAIN 15:19
PROVIDERS: ATTEND Orthopaedic Surgery Orthopaedic Surgery of the Spine
DX: M50.30 Other cervical disc degeneration, unspecified cervical region (principal)
CPT/HCPCS: 72125

== ENCOUNTER → 2017-08-10 | Outpatient (CLI) | payer MEDICARE, BC ==
--- NOTE | 2017-08-10 10:55 | US ---
EXAMINATION TYPE: US venous doppler duplex LE BI DATE OF EXAM: 08/10/2017 10:17 AM COMPARISON: None CLINICAL HISTORY: 76-year-old male Pain In Limbs M79.606. Right calf pain and left thigh pain noted x 1 week and noted after having to stand on toes and heels upon physical exam. SIDE PERFORMED: Bilateral TECHNIQUE: The lower extremity deep venous system is examined utilizing real time linear array sonog klarissa with graded compression, doppler sonography and color-flow sonography. FINDINGS: VESSELS IMAGED: Common Femoral Vein Deep Femoral Vein Greater Saphenous Vein * Femoral Vein Popliteal Vein Small Saphenous Vein * Proximal Calf Veins (* superficial vessels) Right Leg: Positive for non occluding DVT at lower CFV at saphenofemoral junction. Positive for Superficial Vein Thrombosis in Greater Saphenous Vein from mid calf to groin. Left Leg: Negative for DVT IMPRESSION: 1. Right leg positive for nonocclusive DVT at the lower common femoral vein at the saphenofemoral anitha ction. 2. Right leg positive for SVT involving the greater saphenous vein from the groin down to the mid lola f. 3. Left leg negative for DVT from the groin to the upper calf.
== END | disposition home or self-care (01) ==
LOC: RADUSWWP 09:32
PROVIDERS: ATTEND Family Medicine
DX: I82.411 Acute embolism and thrombosis of right femoral vein (principal); I47.1 Supraventricular tachycardia
CPT/HCPCS: 93970

== ENCOUNTER 2017-09-22 11:42 | Inpatient (IN) | payer MEDICARE, BC ==
[2017-09-22] MEDS ORDERED: MD COMMUNICATION TO PHARMACY 1 EACH MISC PO PRN (14:38)
[2017-09-22 15:56] LABS: Basophils % (A) 0 %; Eosinophils # (A) 0.2 k/uL (0-0.7); Eosinophils % (A) 2 %; HCT 37.2 % (39.0-53.0); HGB 11.7 gm/dL (13.0-17.5); Lymphocytes # (A) 0.8 k/uL (1.0-4.8); Lymphocytes % (A) 9 %; MCHC 31.3 g/dL (31.0-37.0); MCV 95.6 fL (80.0-100.0); Mean Platelet Volume 7.5; Monocytes # (A) 0.5 k/uL (0-1.0); Monocytes % (A) 5 %; Neutrophils # (A) 7.9 k/uL (1.3-7.7); Neutrophils % (A) 83 %; Platelet Count 136 k/uL (150-450); RDW 14.4 % (11.5-15.5); WBC 9.5 k/uL (3.8-10.6)
[2017-09-22 16:03] LABS: INR 2.4 (<1.2); Prothrombin Time 21.2 sec (9.0-12.0)
[2017-09-22 16:12] LABS: Albumin 3.4 g/dL (3.5-5.0); Calcium 8.6 mg/dL (8.4-10.2); Potassium 4.2 mmol/L (3.5-5.1); Total Bilirubin 0.2 mg/dL (0.2-1.3); Total Protein 5.7 g/dL (6.3-8.2)
[2017-09-22] MEDS: ASCORBIC ACID 500 MG TAB PO SCH ×2 (16:35→22:39)
[2017-09-22] MEDS: GABAPENTIN 300 MG CAP PO SCH ×2 (16:35→22:39)
[2017-09-22] MEDS: hydrALAZINE HCL 25 MG TAB PO SCH ×2 (16:35→22:39)
[2017-09-22] MEDS: WARFARIN 5 MG TAB PO SCH (16:36)
[2017-09-22] MEDS: FUROSEMIDE 80 MG TAB PO SCH (16:36)
[2017-09-22] MEDS: [UNRECOGNIZED DRUG - OTHER] PO SCH (16:37)
[2017-09-22] MEDS: AMPICILLIN-SULBACTAM 3 GM in SODIUM CHLORIDE 0.9% 100 ML IVPB SCH ×2 (16:37→22:22)
[2017-09-22] MEDS: traMADol 50 MG TAB PO SCH ×2 (16:40→22:26)
[2017-09-22 17:11] LABS: Glucose,Whole Blood 127 mg/dL (75-99)
[2017-09-22] MEDS: INSULIN ASPART 100 UNIT/ML 1 ML 10 ML VIAL SQ SCH ×2 (17:29→22:22)
[2017-09-22 18:33] LABS: Erythrocyte Sedimentation Rate 32 mm/hr (0-15)
[2017-09-22 20:25] LABS: Glucose,Whole Blood 106 mg/dL (75-99)
[2017-09-22] MEDS: INSULIN DETEMIR 100 UNIT/ML 10 ML VIAL SQ SCH (22:26)
[2017-09-22] MEDS: CARVEDILOL 12.5 MG TAB PO SCH (22:39)
[2017-09-22] MEDS: TOPIRAMATE 25 MG TAB PO SCH (22:39)
[2017-09-22 23:30] VITALS: BMI 31.2
[2017-09-22] MEDS: ZOLPIDEM 5 MG TAB PO PRN (23:38)
[2017-09-23] MEDS: AMPICILLIN-SULBACTAM 3 GM in SODIUM CHLORIDE 0.9% 100 ML IVPB SCH ×3 (03:23→21:04)
[2017-09-23] MEDS: CYANOCOBALAMIN 500 MCG TAB PO SCH (07:27)
[2017-09-23] MEDS: FOLIC ACID 1 MG TAB PO SCH (07:27)
[2017-09-23] MEDS: hydrALAZINE HCL 25 MG TAB PO SCH ×3 (07:27→21:01)
[2017-09-23] MEDS: PANTOPRAZOLE 40 MG TABLET PO SCH (07:27)
[2017-09-23] MEDS: ISOSORBIDE MONONITRATE ER 30 MG TAB.ER.24H PO SCH (07:27)
[2017-09-23] MEDS: CHOLECALCIFEROL 400 UNIT TAB PO SCH (07:27)
[2017-09-23] MEDS: GABAPENTIN 300 MG CAP PO SCH ×3 (07:27→21:01)
[2017-09-23] MEDS: MONTELUKAST 10 MG TAB PO SCH (07:27)
[2017-09-23] MEDS: TOPIRAMATE 25 MG TAB PO SCH ×2 (07:27→21:01)
[2017-09-23] MEDS: TERBINAFINE 250 MG TAB PO SCH (07:27)
[2017-09-23] MEDS: CALCITRIOL 0.25 MCG CAP PO SCH (07:28)
[2017-09-23] MEDS: ASCORBIC ACID 500 MG TAB PO SCH ×3 (07:28→21:01)
[2017-09-23] MEDS: CARVEDILOL 12.5 MG TAB PO SCH ×2 (07:28→21:01)
[2017-09-23] MEDS: NON-FORMULARY DRUG (Ubidecarenone [Co Q-10] 100 MG) PO SCH (07:28)
[2017-09-23] MEDS: NON-FORMULARY DRUG (Omega-3 Fatty Acids/Fish Oil [Fish Oil 1,000 Mg Softgel] 1 CAP) PO SCH (07:28)
[2017-09-23] MEDS: FUROSEMIDE 80 MG TAB PO SCH ×2 (07:28→15:27)
[2017-09-23] MEDS: FAMOTIDINE 20 MG TAB PO SCH (07:28)
[2017-09-23] MEDS: [UNRECOGNIZED DRUG - OTHER] PO SCH ×2 (07:28→15:26)
[2017-09-23] MEDS: traMADol 50 MG TAB PO SCH ×3 (07:29→21:04)
[2017-09-23] MEDS: INSULIN ASPART 100 UNIT/ML 1 ML 10 ML VIAL SQ SCH ×4 (07:29→21:00)
[2017-09-23] MEDS: NON-FORMULARY DRUG (Vitamin C/Biotin [Hair, Skin And Nails] 1 TAB) PO SCH (07:29)
[2017-09-23 07:40] LABS: Glucose,Whole Blood 102 mg/dL (75-99)
[2017-09-23] MEDS: INSULIN DETEMIR 100 UNIT/ML 10 ML VIAL SQ SCH ×2 (08:38→21:00)
--- NOTE | 2017-09-23 09:29 | XR ---
EXAMINATION TYPE: XR foot complete LT DATE OF EXAM: 09/23/2017 COMPARISON: NONE HISTORY: History of osteomyelitis pain in great toe TECHNIQUE: 3 views left foot FINDINGS: Structures appear somewhat osteopenic. Hammertoes are present of the first and second digit . Vascular calcification is noted. No suspicious cortical erosion to suggest acute osteomyelitis is identified. Plantar calcaneal heel s purs are present. IMPRESSION: 1. Acute fracture is not identified. 2. Degenerative changes are present.
[2017-09-23 12:27] LABS: Glucose,Whole Blood 132 mg/dL (75-99)
[2017-09-23] MEDS: WARFARIN 5 MG TAB PO SCH (15:27)
--- NOTE | 2017-09-23 15:27 | CONS ---
CONSULTATION DATE OF SERVICE: 09/23/2017. REASON FOR CONSULTATION: Left big toe diabetic foot infection. HISTORY OF PRESENT ILLNESS: The patient is a 76-year-old male who does have a history of left diabetic foot infection of the big toe with ulcer osteomyelitis that was treated with IV Unasyn followed by local wound care. The patient's wound had completely healed by May of 2017. The [facility] The patient did mention that about a month ago he started having a problem with the left big toe. He was noticed to have some drainage from the toe area. The patient denies significant trauma to that area. The patient denies having any significant swelling or redness. No fever. No chills. The patient has been seen by his primary care physician and has been treated with an antibiotic. However, the patient not sure about the name of the antibiotic without significant improvement. Subsequently the patient has been admitted directly to the hospital. He was started on Unasyn and ID was consulted for further recommendation regarding antibiotic therapy. Patient did have x-rays of the foot which are not showing any evidence of osteomyelitis. The patient since this admission with no fever. He did have a white count of 9.5. Sedimentation rate was elevated 32. REVIEW OF SYSTEMS: CONSTITUTIONAL: Positive for weakness. No high-grade fever. EYES: No complaint. ENT: No complaint. RESPIRATORY: No complaint. CARDIOVASCULAR: No complaint. GENITOURINARY: No complaint. Gastrointestinal: No complaint. MUSCULOSKELETAL: As per HPI. INTEGUMENTARY: As per HPI. PSYCHOLOGICAL: No complaint. ENDOCRINE: No complaint. NEUROLOGICAL: No complaint. PAST MEDICAL HISTORY: Significant for left big toe nonhealing wound and osteomyelitis, diabetes mellitus, coronary artery disease, gastroesophageal reflux disease, asthma and hypertension. PAST SURGICAL HISTORY: Debridement of the wound on the left big toe. No other major surgeries. SOCIAL HISTORY: Remote history of smoking, no drinking, drug use. and lives with . FAMILY HISTORY: No pertinent findings noticed. ALLERGIES: No known drug allergies. MEDICATIONS: Include the patient is currently on Unasyn 3 g q.6h. He is on vitamin C, Rocaltrol, Coreg, vitamin D3, vitamin B12, Pepcid, Porter catheter, Lasix, Neurontin, hydralazine, NovoLog, Levemir, Imdur, Singulair, oxycodone, Protonix, Lamisil, Topamax, Ultram, Coumadin, and Ambien. EXAMINATION: Blood pressure is 143/55 with a pulse of 78. Temperature 97.4. He is 96% on room air. General description is a elderly male lying in bed in no distress. No tachypnea or accessory muscle respiration use. HEENT: Shows slight pallor. No scleral icterus. Oral mucous membranes dry. NECK: Trachea central. No thyromegaly. LUNGS: Unlabored breathing. Clear to auscultation anteriorly. HEART: S1, S2. Regular rate and rhythm. ABDOMEN: Soft, no tenderness. No rigidity. EXTREMITIES: No edema feet. Examination of the left big toe did have a superficial wound on the dorsum of the left right big toe, which was clean and deep culture has been obtained, both aerobic and anaerobic. No significant cellulitis or any minimal purulent drainage. NEUROLOGICAL: Patient is awake, alert, oriented x2. Mood and affect normal. LABS: Hemoglobin is 11 with white count of 9.5, BUN of 54, creatinine 3.22. Wound culture obtained yesterday, currently pending. DIAGNOSTIC IMPRESSION AND PLAN: Patient with left diabetic foot infection, Story grade 3 with abscess cellulitis of the left big toe on the dorsum of the foot with x-rays negative for any bony changes suspicious for osteomyelitis. He did have previous history of osteomyelitis the same location that was treated with IV Unasyn and the patient has finished therapy and the wound has completely healed up. The likely organism to cover will be the gram- positive skin tammie or underlying gram-negative open micro wound infection not entirely excluded. PLAN: 1. Wound culture has been obtained to guide antibiotic therapy. 2. Unasyn will be adjusted in view of his creatinine clearance. 3. Aquacel silver dressing to the wound. 4. Will need further workup including a bone scan to rule out osteomyelitis 5- Depending upon his clinical response as well as cultures, will further adjust medication if needed. Thank you for this consultation. Will follow the patient along with you. MMODL / IJN: [id number] / DELMER
[2017-09-23 17:16] LABS: Glucose,Whole Blood 115 mg/dL (75-99)
[2017-09-23 20:28] LABS: Glucose,Whole Blood 152 mg/dL (75-99)
[2017-09-23] MEDS: ZOLPIDEM 5 MG TAB PO PRN (22:31)
--- NOTE | 2017-09-23 23:51 | HP ---
HISTORY AND PHYSICAL CHIEF COMPLAINT: Elderly white male who has diabetes mellitus with a toe infection of the great toe. HISTORY OF PRESENT ILLNESS: This is an elderly white male who developed left great toe significant swelling with erythema and a bursting ulcer with an open wound on the anterior part of his toe, worsening over the past week, failing outpatient treatment. He was admitted to the hospital for osteomyelitis versus cellulitis of the great toe spreading up to the mid foot on the right side, failing outpatient treatment with antibiotics. PAST MEDICAL HISTORY: 1. Insulin-dependent diabetes mellitus. 2. Hypertension. 3. Chronic renal disease. 4. Cervical lumbar disc disease. 5. Osteoarthritis. 6. Obesity. 7. Hypertension. MEDICATIONS: See list. REVIEW OF SYSTEMS: Fourteen-point review of systems negative except as mentioned in HPI. PHYSICAL EXAMINATION: Vital signs stable. Afebrile. OPHTHALMOLOGIC: Pupils equal, round, reactive to light and accommodation. NEUROLOGIC: Alert and oriented x3. PSYCH: Fair mood and affect. CARDIOVASCULAR: S1, S2. GI: Soft, nontender. HEMATOLOGIC: Negative Homans. INTEGUMENT: Left great toe with moderate swelling of the DIP, PIP joint, open ulcer about 4-5 mm on the anterior part of the toe, cellulitis going to the mid foot. ASSESSMENT: 1. Cellulitis/abscess of the left foot great toe radiating up to the mid foot. 2. Insulin-dependent diabetes mellitus. 3. Hypertension. 4. Obesity. 5. Osteoarthritis. 6. Degenerative disc disease. PLAN: IV antibiotics will be given. IV Unasyn. Wound care. Follow up in next 24-48 hours. Accu-Chek protocol. X-rays of the great toe will be done. MMODL / IJN: [id number] /
[2017-09-24 08:12] LABS: Glucose,Whole Blood 105 mg/dL (75-99)
[2017-09-24 08:12] LABS: Glucose,Whole Blood 57 mg/dL (75-99)
[2017-09-24 08:12] LABS: Glucose,Whole Blood 65 mg/dL (75-99)
[2017-09-24] MEDS: INSULIN ASPART 100 UNIT/ML 1 ML 10 ML VIAL SQ SCH ×4 (08:21→21:26)
[2017-09-24] MEDS: [UNRECOGNIZED DRUG - OTHER] PO SCH ×2 (08:21→15:29)
[2017-09-24] MEDS: NON-FORMULARY DRUG (Omega-3 Fatty Acids/Fish Oil [Fish Oil 1,000 Mg Softgel] 1 CAP) PO SCH (08:22)
[2017-09-24] MEDS: NON-FORMULARY DRUG (Vitamin C/Biotin [Hair, Skin And Nails] 1 TAB) PO SCH (08:23)
[2017-09-24] MEDS: traMADol 50 MG TAB PO SCH ×3 (08:23→21:40)
[2017-09-24] MEDS: NON-FORMULARY DRUG (Ubidecarenone [Co Q-10] 100 MG) PO SCH (08:23)
[2017-09-24] MEDS: INSULIN DETEMIR 100 UNIT/ML 10 ML VIAL SQ SCH ×2 (08:27→22:09)
[2017-09-24] MEDS: ISOSORBIDE MONONITRATE ER 30 MG TAB.ER.24H PO SCH (08:28)
[2017-09-24] MEDS: hydrALAZINE HCL 25 MG TAB PO SCH ×3 (08:28→21:30)
[2017-09-24] MEDS: CARVEDILOL 12.5 MG TAB PO SCH ×2 (08:29→21:30)
[2017-09-24] MEDS: ASCORBIC ACID 500 MG TAB PO SCH ×3 (08:29→21:30)
[2017-09-24] MEDS: FUROSEMIDE 80 MG TAB PO SCH ×2 (08:29→15:30)
[2017-09-24] MEDS: CYANOCOBALAMIN 500 MCG TAB PO SCH (08:29)
[2017-09-24] MEDS: PANTOPRAZOLE 40 MG TABLET PO SCH (08:29)
[2017-09-24] MEDS: FOLIC ACID 1 MG TAB PO SCH (08:29)
[2017-09-24] MEDS: MONTELUKAST 10 MG TAB PO SCH (08:29)
[2017-09-24] MEDS: FAMOTIDINE 20 MG TAB PO SCH (08:29)
[2017-09-24] MEDS: CHOLECALCIFEROL 400 UNIT TAB PO SCH (08:30)
[2017-09-24] MEDS: TOPIRAMATE 25 MG TAB PO SCH ×2 (08:30→21:31)
[2017-09-24] MEDS: GABAPENTIN 300 MG CAP PO SCH ×3 (08:30→21:30)
[2017-09-24] MEDS: TERBINAFINE 250 MG TAB PO SCH (08:30)
[2017-09-24] MEDS: AMPICILLIN-SULBACTAM 3 GM in SODIUM CHLORIDE 0.9% 100 ML IVPB SCH ×2 (08:34→21:26)
[2017-09-24 12:14] LABS: Glucose,Whole Blood 208 mg/dL (75-99)
[2017-09-24 14:45] LABS: INR 2.9 (<1.2)
[2017-09-24] MEDS: WARFARIN 5 MG TAB PO SCH (15:30)
[2017-09-24 17:18] LABS: Glucose,Whole Blood 144 mg/dL (75-99)
[2017-09-24 20:47] LABS: Glucose,Whole Blood 163 mg/dL (75-99)
--- NOTE | 2017-09-24 23:00 | NM ---
EXAMINATION TYPE: NM bone 3 phase DATE OF EXAM: 09/24/2017 COMPARISON: NONE HISTORY: Left big toe wound. Possible osteomyelitis. Triple phase bone scintigraphy was performed following the injection of27.3 mCi Tc 99m MDP. Immediat e images and 4.5 hours post injection images acquired. FINDINGS: Flow study shows some hyperemia of the left big toe. Blood pool images show persistent hyperemia of t he left big toe region. The delayed images show focal abnormal increased uptake in the left big toe i n the region of the proximal phalanx. IMPRESSION: Hyperemia with delayed increased uptake in the distal left leg toe consistent with significant osteoa rthritis or fracture or osteomyelitis. I would favor osteomyelitis in view of the significant hyperem ia.
[2017-09-25 07:16] LABS: Glucose,Whole Blood 149 mg/dL (75-99)
--- NOTE | 2017-09-25 07:44 | PN ---
PROGRESS NOTE DATE OF SERVICE: 09/24/2017 REASON FOR FOLLOWUP: Left big toe diabetic foot infection. INTERVAL HISTORY: The patient is afebrile, has been breathing comfortably. Denies significant chest pain. No cough. No abdominal pain or diarrhea. EXAMINATION: Blood pressure 136/68 with a pulse of 78, temperature 97.9. He is 95% on room air. General description is an elderly male lying in bed in no distress. Respiratory system: Unlabored breathing. Clear to auscultation anteriorly. Heart S1, S2 regular rate and rhythm. Abdomen is soft, no tenderness. Left big toe swelling has slightly improved. Still has some minimal drainage. LABS: Wound culture currently pending. DIAGNOSTIC IMPRESSION AND PLAN: Patient with left big toe diabetic foot infection with wound and secondary cellulitis with a previous episode of osteomyelitis waiting for the culture to finalize. Continue Unasyn. Bone scan will be obtained to make sure no evidence of any osteomyelitis. MMODL / IJN: [id number] / MTDD
[2017-09-25] MEDS: NON-FORMULARY DRUG (Omega-3 Fatty Acids/Fish Oil [Fish Oil 1,000 Mg Softgel] 1 CAP) PO SCH (07:56)
[2017-09-25] MEDS: [UNRECOGNIZED DRUG - OTHER] PO SCH ×2 (07:56→16:57)
[2017-09-25] MEDS: INSULIN ASPART 100 UNIT/ML 1 ML 10 ML VIAL SQ SCH ×4 (07:57→21:37)
[2017-09-25] MEDS: hydrALAZINE HCL 25 MG TAB PO SCH ×3 (07:58→21:38)
[2017-09-25] MEDS: FUROSEMIDE 80 MG TAB PO SCH ×2 (07:58→16:56)
[2017-09-25] MEDS: CHOLECALCIFEROL 400 UNIT TAB PO SCH (07:58)
[2017-09-25] MEDS: INSULIN DETEMIR 100 UNIT/ML 10 ML VIAL SQ SCH ×2 (07:58→21:38)
[2017-09-25] MEDS: ASCORBIC ACID 500 MG TAB PO SCH ×3 (07:58→21:38)
[2017-09-25] MEDS: GABAPENTIN 300 MG CAP PO SCH ×3 (07:58→21:38)
[2017-09-25] MEDS: CARVEDILOL 12.5 MG TAB PO SCH ×2 (07:58→21:38)
[2017-09-25] MEDS: FOLIC ACID 1 MG TAB PO SCH (07:58)
[2017-09-25] MEDS: TERBINAFINE 250 MG TAB PO SCH (07:58)
[2017-09-25] MEDS: ISOSORBIDE MONONITRATE ER 30 MG TAB.ER.24H PO SCH (07:59)
[2017-09-25] MEDS: PANTOPRAZOLE 40 MG TABLET PO SCH (07:59)
[2017-09-25] MEDS: MONTELUKAST 10 MG TAB PO SCH (07:59)
[2017-09-25] MEDS: TOPIRAMATE 25 MG TAB PO SCH ×2 (07:59→21:39)
[2017-09-25] MEDS: FAMOTIDINE 20 MG TAB PO SCH (07:59)
[2017-09-25] MEDS: NON-FORMULARY DRUG (Ubidecarenone [Co Q-10] 100 MG) PO SCH (08:00)
[2017-09-25] MEDS: NON-FORMULARY DRUG (Vitamin C/Biotin [Hair, Skin And Nails] 1 TAB) PO SCH (08:04)
[2017-09-25] MEDS: CYANOCOBALAMIN 500 MCG TAB PO SCH (08:04)
[2017-09-25] MEDS: AMPICILLIN-SULBACTAM 3 GM in SODIUM CHLORIDE 0.9% 100 ML IVPB SCH ×2 (08:04→21:37)
--- NOTE | 2017-09-25 08:14 | PN ---
PROGRESS NOTE SUBJECTIVE: This is a elderly white male with cellulitis of the left great toe. X-ray was negative for any osteomyelitis. He will remained on IV Unasyn until oral antibiotics are finalized after cultures are back. CARDIOVASCULAR: S1, S2. LUNGS: Clear. GI: Soft. ENDOCRINE: BMI is over 40. MUSCULOSKELETAL: Cervical lumbar triggers, paracervical muscle tenderness. INTEGUMENT: Shows left great toe. Redness is decreasing, 3-5 mm open wound on the anterior of the great toe. Continue with IV Unasyn and await possible oral antibiotics. MMODL / IJN: [id number] /
[2017-09-25] MEDS: traMADol 50 MG TAB PO SCH ×3 (10:06→21:39)
[2017-09-25 12:26] LABS: Glucose,Whole Blood 141 mg/dL (75-99)
[2017-09-25] MEDS: WARFARIN 5 MG TAB PO SCH (16:56)
[2017-09-25 17:23] LABS: Glucose,Whole Blood 106 mg/dL (75-99)
[2017-09-25 20:40] LABS: Glucose,Whole Blood 132 mg/dL (75-99)
[2017-09-26 07:29] LABS: Glucose,Whole Blood 127 mg/dL (75-99)
[2017-09-26] MEDS: INSULIN ASPART 100 UNIT/ML 1 ML 10 ML VIAL SQ SCH ×4 (07:37→21:43)
[2017-09-26] MEDS: MONTELUKAST 10 MG TAB PO SCH (08:00)
[2017-09-26] MEDS: hydrALAZINE HCL 25 MG TAB PO SCH ×3 (08:00→21:41)
[2017-09-26] MEDS: AMPICILLIN-SULBACTAM 3 GM in SODIUM CHLORIDE 0.9% 100 ML IVPB SCH ×2 (08:00→21:39)
[2017-09-26] MEDS: FUROSEMIDE 80 MG TAB PO SCH ×2 (08:01→16:12)
[2017-09-26] MEDS: FOLIC ACID 1 MG TAB PO SCH (08:01)
[2017-09-26] MEDS: CARVEDILOL 12.5 MG TAB PO SCH ×2 (08:01→21:40)
[2017-09-26] MEDS: ASCORBIC ACID 500 MG TAB PO SCH ×3 (08:01→21:40)
[2017-09-26] MEDS: TOPIRAMATE 25 MG TAB PO SCH ×2 (08:01→21:41)
[2017-09-26] MEDS: TERBINAFINE 250 MG TAB PO SCH (08:01)
[2017-09-26] MEDS: CYANOCOBALAMIN 500 MCG TAB PO SCH (08:01)
[2017-09-26] MEDS: FAMOTIDINE 20 MG TAB PO SCH (08:01)
[2017-09-26] MEDS: CHOLECALCIFEROL 400 UNIT TAB PO SCH (08:01)
[2017-09-26] MEDS: PANTOPRAZOLE 40 MG TABLET PO SCH (08:01)
[2017-09-26] MEDS: GABAPENTIN 300 MG CAP PO SCH ×3 (08:01→21:41)
[2017-09-26] MEDS: traMADol 50 MG TAB PO SCH ×3 (08:02→21:44)
[2017-09-26] MEDS: NON-FORMULARY DRUG (Omega-3 Fatty Acids/Fish Oil [Fish Oil 1,000 Mg Softgel] 1 CAP) PO SCH (08:02)
[2017-09-26] MEDS: ISOSORBIDE MONONITRATE ER 30 MG TAB.ER.24H PO SCH (08:02)
[2017-09-26] MEDS: NON-FORMULARY DRUG (Vitamin C/Biotin [Hair, Skin And Nails] 1 TAB) PO SCH (08:10)
[2017-09-26] MEDS: NON-FORMULARY DRUG (Ubidecarenone [Co Q-10] 100 MG) PO SCH (08:10)
[2017-09-26] MEDS: [UNRECOGNIZED DRUG - OTHER] PO SCH ×2 (08:10→16:13)
--- NOTE | 2017-09-26 09:09 | PN ---
PROGRESS NOTE DATE OF SERVICE: 09/25/2017 REASON FOR FOLLOWUP: Left big toe diabetic foot infection and possible osteomyelitis. INTERVAL HISTORY: The patient is afebrile, has been breathing comfortably. Denies significant chest pain. No abdominal pain or any pain in left big toe area. EXAMINATION: Blood pressure 156/67 with a pulse of 71, temperature of 96. he is 96% on room air. General description is an elderly male lying in bed in no distress. RESPIRATORY SYSTEM: Unlabored breathing, clear to auscultation anteriorly. HEART: S1, S2. Regular rate and rhythm. ABDOMEN: Soft, no tenderness. Left big toe is currently dressed up. No obvious drainage on the dressing. DIAGNOSTIC IMPRESSION AND PLAN: Patient with left big toe nonhealing wound for almost a month with previous episodes of osteomyelitis, as the culture has been negative. Bone scan will be reviewed with radiologist. Keep the patient on Unasyn. He will likely need another PICC line for outpatient IV antibiotic therapy. This was explained to the patient. Questions and concerns were answered. MMODL / IJN: [id number] / DELMER
--- NOTE | 2017-09-26 09:45 | PN ---
PROGRESS NOTE SUBJECTIVE: This is a 76-year-old white male was admitted with cellulitis, osteomyelitis of the great toe on the left foot, insulin-dependent diabetes mellitus, diabetic wound infection. The patient continues on IV antibiotics. Awaiting culture and sensitivity to come back on his wound. Possible discharge home in the next 24-48 hours if cleared by Infectious Disease. Diabetes is under good control. Cardiovascular S1, S2. Lungs clear. GI soft. hematology negative Homans. ASSESSMENT: 1. Cellulitis. Possible osteomyelitis of the great toe. 2. Diabetic wound infection. 3. Insulin dependent diabetes mellitus. Probable discharge home tomorrow as he is clinically much improved with decreased redness and swelling and less exudate of the toe. MMODL / IJN: [id number] /
[2017-09-26] MEDS: INSULIN DETEMIR 100 UNIT/ML 10 ML VIAL SQ SCH ×2 (11:02→21:40)
[2017-09-26 12:35] LABS: Glucose,Whole Blood 183 mg/dL (75-99)
[2017-09-26] MEDS: WARFARIN 5 MG TAB PO SCH ×2 (16:12→16:16)
[2017-09-26 17:08] LABS: Glucose,Whole Blood 120 mg/dL (75-99)
[2017-09-26 21:08] LABS: Glucose,Whole Blood 141 mg/dL (75-99)
[2017-09-27 07:26] LABS: Glucose,Whole Blood 92 mg/dL (75-99)
[2017-09-27] MEDS: INSULIN ASPART 100 UNIT/ML 1 ML 10 ML VIAL SQ SCH ×4 (07:35→20:56)
[2017-09-27] MEDS: AMPICILLIN-SULBACTAM 3 GM in SODIUM CHLORIDE 0.9% 100 ML IVPB SCH (08:22)
[2017-09-27] MEDS: INSULIN DETEMIR 100 UNIT/ML 10 ML VIAL SQ SCH ×2 (08:22→20:56)
[2017-09-27] MEDS: NON-FORMULARY DRUG (Omega-3 Fatty Acids/Fish Oil [Fish Oil 1,000 Mg Softgel] 1 CAP) PO SCH (08:22)
[2017-09-27] MEDS: NON-FORMULARY DRUG (Vitamin C/Biotin [Hair, Skin And Nails] 1 TAB) PO SCH (08:23)
[2017-09-27] MEDS: NON-FORMULARY DRUG (Ubidecarenone [Co Q-10] 100 MG) PO SCH (08:23)
[2017-09-27] MEDS: traMADol 50 MG TAB PO SCH ×3 (08:23→20:51)
[2017-09-27] MEDS: CARVEDILOL 12.5 MG TAB PO SCH ×2 (08:28→21:00)
[2017-09-27] MEDS: CHOLECALCIFEROL 400 UNIT TAB PO SCH (08:28)
[2017-09-27] MEDS: hydrALAZINE HCL 25 MG TAB PO SCH ×3 (08:28→21:00)
[2017-09-27] MEDS: TOPIRAMATE 25 MG TAB PO SCH ×2 (08:28→21:00)
[2017-09-27] MEDS: ASCORBIC ACID 500 MG TAB PO SCH ×3 (08:28→21:00)
[2017-09-27] MEDS: [UNRECOGNIZED DRUG - OTHER] PO SCH ×2 (08:29→15:15)
[2017-09-27] MEDS: CALCITRIOL 0.25 MCG CAP PO SCH (08:29)
[2017-09-27] MEDS: MONTELUKAST 10 MG TAB PO SCH (08:29)
[2017-09-27] MEDS: PANTOPRAZOLE 40 MG TABLET PO SCH (08:29)
[2017-09-27] MEDS: FUROSEMIDE 80 MG TAB PO SCH ×2 (08:29→15:16)
[2017-09-27] MEDS: FOLIC ACID 1 MG TAB PO SCH (08:29)
[2017-09-27] MEDS: ISOSORBIDE MONONITRATE ER 30 MG TAB.ER.24H PO SCH (08:29)
[2017-09-27] MEDS: CYANOCOBALAMIN 500 MCG TAB PO SCH (08:29)
[2017-09-27] MEDS: GABAPENTIN 300 MG CAP PO SCH ×3 (08:29→21:00)
[2017-09-27] MEDS: FAMOTIDINE 20 MG TAB PO SCH (08:30)
[2017-09-27] MEDS: TERBINAFINE 250 MG TAB PO SCH (08:30)
[2017-09-27 09:07] LABS: Basophils % (A) 0 %; Eosinophils # (A) 0.2 k/uL (0-0.7); Eosinophils % (A) 3 %; HCT 39.4 % (39.0-53.0); HGB 12.4 gm/dL (13.0-17.5); Lymphocytes # (A) 0.9 k/uL (1.0-4.8); Lymphocytes % (A) 12 %; MCH 30.4 pg (25.0-35.0); MCHC 31.5 g/dL (31.0-37.0); MCV 96.7 fL (80.0-100.0); Mean Platelet Volume 7.7; Monocytes # (A) 0.3 k/uL (0-1.0); Monocytes % (A) 5 %; Neutrophils # (A) 5.5 k/uL (1.3-7.7); Neutrophils % (A) 78 %; Platelet Count 157 k/uL (150-450); RBC 4.08 m/uL (4.30-5.90); RDW 14.3 % (11.5-15.5)
[2017-09-27 09:22] LABS: INR 2.3 (<1.2); Prothrombin Time 20.9 sec (9.0-12.0)
[2017-09-27 09:32] LABS: Albumin 3.7 g/dL (3.5-5.0); Potassium 4.5 mmol/L (3.5-5.1); Total Bilirubin 0.5 mg/dL (0.2-1.3); Total Protein 6.2 g/dL (6.3-8.2); Uric Acid 7.6 mg/dL (3.5-8.5)
--- NOTE | 2017-09-27 09:49 | PN ---
PROGRESS NOTE SUBJECTIVE: This is a 76-year-old white male admitted with cellulitis of the foot, osteomyelitis of the great toe. A PICC line is going to be placed tomorrow and possibly outpatient antibiotics for 6 weeks. Cardiovascular S1, S2. Lungs clear. GI soft. Integument shows great toe swelling with open ulceration on the anterior great toe. ASSESSMENT: 1. Cellulitis, osteomyelitis, great toe, left foot. 2. Insulin-dependent diabetes mellitus. 3. Diabetic wound infection. PICC line will be placed. IV antibiotics will be done. Possible discharge home in the next 24 to 48 hours. MMODL / IJN: [id number] /
--- NOTE | 2017-09-27 09:55 | PN ---
PROGRESS NOTE DATE OF SERVICE: 09/26/2017 REASON FOR FOLLOWUP: Left big toe diabetic foot infection, question of osteomyelitis. INTERVAL HISTORY: The patient is afebrile. He is breathing comfortably. Denies significant chest pain. No cough. No abdominal pain or any pain in his left big toe area. EXAMINATION: Blood pressure 156/78 with a pulse of 73, temperature of 99.2. He is 98% on room air. General description is an elderly male lying in bed in no distress. Respiratory system: Unlabored breathing. Clear to auscultation anteriorly. Heart S1, S2. Regular rate and rhythm. Abdomen soft, no tenderness. Left big toe overall swelling and redness slightly improved. LABS: The cultures remains to be negative. DIAGNOSTIC IMPRESSION AND PLAN: Patient with left diabetic foot infection and a question of osteomyelitis. We will review the x-rays and bone scan with radiologist tomorrow before ordering a PICC line. His Coumadin is to be put on hold for placement of the PICC line. Continue with supportive care. Continue with the Unasyn at this point. MMODL / IJN: [id number] /
[2017-09-27 10:17] LABS: Calcium 9.2 mg/dL (8.4-10.2)
[2017-09-27] MEDS: cefTRIAXone IN SWFI 2,000 MG/20 ML SYRINGE IVP SCH (11:13)
[2017-09-27] MEDS: WARFARIN 5 MG TAB PO SCH (11:26)
[2017-09-27 12:21] LABS: Glucose,Whole Blood 158 mg/dL (75-99)
--- NOTE | 2017-09-27 13:55 | PN ---
PROGRESS NOTE SUBJECTIVE: A 76-year-old white male with osteomyelitis of the toe, awaiting PICC line placement and Infectious Disease recommendations for IV antibiotics for which will be set up at his home to the IV or per patient reference and patient's recommendation. No chest pain, shortness of breath. Sugars have been maintained mid 200s. CARDIOVASCULAR: S1, S2. GI: Soft, nontender, distended, obesity. HEMATOLOGY: Negative Homans. Toe shows decreased redness and swelling. There is 2 to 3 mm pinpoint mid great toe anterior ulceration. ASSESSMENT: 1. Diabetic wound infection, osteomyelitis of the great toe. 2. Insulin-dependent diabetes mellitus. 3. Diastolic congestive heart failure. 4. Osteoarthritis, severe in nature. PLAN: Await Infectious Disease recommendation. Continue with IV antibiotics in the meantime, possible PICC line. Home IV antibiotics will be needed. MYRNAL / IJN: [id number] /
[2017-09-27 17:21] LABS: Glucose,Whole Blood 175 mg/dL (75-99)
[2017-09-27 20:51] LABS: Glucose,Whole Blood 154 mg/dL (75-99)
--- NOTE | 2017-09-27 22:43 | PN ---
PROGRESS NOTE DATE OF SERVICE: 09/27/2016. REASON FOR FOLLOWUP: Left big toe osteomyelitis. INTERVAL HISTORY: The patient is afebrile has been breathing comfortably. Denies significant chest pain. No cough, no abdominal pain or any worsening pain in the left big toe area. EXAMINATION: Blood pressure is 120/68 with a pulse of 84, temperature 97.4. He is 97% on room air. General description is an elderly male lying in bed in no distress. Respiratory system: Unlabored breathing, clear to auscultation anteriorly. Heart S1, S2. Regular rate and rhythm. Abdomen soft. No tenderness. Left big toe ulcer overall swelling and redness improved. LABS: White count 7.0 with a BUN of 73, creatinine 3.11. DIAGNOSTIC IMPRESSION AND PLAN: Patient with a left big toe chronic wound with likely osteomyelitis. Culture has been negative so far. Antibiotic will be adjusted to Rocephin 2 g daily. The patient needs a PICC line for outpatient IV antibiotic therapy. Continue supportive care. MMODL / IJN: [id number] /
[2017-09-28 07:30] LABS: Glucose,Whole Blood 83 mg/dL (75-99)
[2017-09-28] MEDS: INSULIN ASPART 100 UNIT/ML 1 ML 10 ML VIAL SQ SCH ×4 (07:33→21:42)
[2017-09-28] MEDS: hydrALAZINE HCL 25 MG TAB PO SCH ×3 (08:18→21:43)
[2017-09-28] MEDS: CARVEDILOL 12.5 MG TAB PO SCH ×2 (08:19→21:43)
[2017-09-28] MEDS: CHOLECALCIFEROL 400 UNIT TAB PO SCH (08:19)
[2017-09-28] MEDS: ASCORBIC ACID 500 MG TAB PO SCH ×3 (08:19→21:43)
[2017-09-28] MEDS: FUROSEMIDE 80 MG TAB PO SCH ×2 (08:19→16:22)
[2017-09-28] MEDS: ISOSORBIDE MONONITRATE ER 30 MG TAB.ER.24H PO SCH (08:20)
[2017-09-28] MEDS: PANTOPRAZOLE 40 MG TABLET PO SCH (08:20)
[2017-09-28] MEDS: cefTRIAXone IN SWFI 2,000 MG/20 ML SYRINGE IVP SCH (08:20)
[2017-09-28] MEDS: TOPIRAMATE 25 MG TAB PO SCH ×2 (08:20→21:43)
[2017-09-28] MEDS: GABAPENTIN 300 MG CAP PO SCH ×3 (08:20→21:43)
[2017-09-28] MEDS: MONTELUKAST 10 MG TAB PO SCH (08:21)
[2017-09-28] MEDS: CYANOCOBALAMIN 500 MCG TAB PO SCH (08:22)
[2017-09-28] MEDS: FOLIC ACID 1 MG TAB PO SCH (08:22)
[2017-09-28] MEDS: FAMOTIDINE 20 MG TAB PO SCH (08:23)
[2017-09-28] MEDS: [UNRECOGNIZED DRUG - OTHER] PO SCH ×2 (08:23→16:20)
[2017-09-28] MEDS: TERBINAFINE 250 MG TAB PO SCH (08:24)
[2017-09-28] MEDS: NON-FORMULARY DRUG (Omega-3 Fatty Acids/Fish Oil [Fish Oil 1,000 Mg Softgel] 1 CAP) PO SCH (08:24)
[2017-09-28] MEDS: traMADol 50 MG TAB PO SCH ×3 (08:24→21:43)
[2017-09-28] MEDS: INSULIN DETEMIR 100 UNIT/ML 10 ML VIAL SQ SCH ×2 (08:25→21:42)
[2017-09-28] MEDS: NON-FORMULARY DRUG (Ubidecarenone [Co Q-10] 100 MG) PO SCH (08:26)
[2017-09-28] MEDS: NON-FORMULARY DRUG (Vitamin C/Biotin [Hair, Skin And Nails] 1 TAB) PO SCH (08:26)
[2017-09-28 08:54] LABS: INR 1.8 (<1.2); Partial Thromboplastin Time 27.7 sec (22.0-30.0); Prothrombin Time 16.3 sec (9.0-12.0)
[2017-09-28 11:58] LABS: Glucose,Whole Blood 151 mg/dL (75-99)
--- NOTE | 2017-09-28 15:13 | IR ---
EXAMINATION TYPE: IR cvc insert >=5 years DATE OF EXAM: 09/28/2017 COMPARISON: NONE CLINICAL HISTORY: Osteomyelitis Needs long-term intravenous access for antibiotics. PROCEDURE: After informed consent, the skin overlying the right brachial vein was localized with ultrasound and noted to be compressible and patent. An ultrasound image was obtained and submitted on the patient's chart. The overlying skin was prepped and draped and Lidocaine was used for local anesthesia. A sk in yony was made with a scalpel. Access was gained to the vein under ultrasound guidance with a 21 g auge needle and a 0.018 inch wire was advanced. Access site was dilated with Peel-Away sheath and ca theter tailored to the appropriate length and advanced such that the distal tip is at the cavoatrial junction. Spot image was obtained verifying placement. Catheter was fixed to the skin with suture a nd a sterile dressing was placed following hemostasis. Catheter was aspirated and flushed with salin e. Patient was discharged in stable condition without complication.Maximal barrier technique is util ized. Ultrasound image is documented on the chart. Ultrasound used with sterile technique. Fluoro time and fluoroscopic images submitted to document procedure: 32 images, 0.2 minutes fluorosco py time IMPRESSION: STATUS POST ULTRASOUND AND FLUOROSCOPIC GUIDED PICC LINE PLACEMENT, READY FOR USE. THIS PROCEDURE WAS PERFORMED BY THE UNDERSIGNED.
[2017-09-28] MEDS: WARFARIN 5 MG TAB PO SCH (16:22)
[2017-09-28 17:08] LABS: Glucose,Whole Blood 152 mg/dL (75-99)
[2017-09-28 20:51] LABS: Glucose,Whole Blood 169 mg/dL (75-99)
--- NOTE | 2017-09-28 22:44 | PN ---
PROGRESS NOTE DATE OF SERVICE: 09/28/2017. REASON FOR FOLLOWUP: Left big toe osteomyelitis. INTERVAL HISTORY: The patient is afebrile, has been breathing comfortably. Denies significant chest pain or cough. No abdominal pain. Denies any worsening pain in the left leg area. EXAMINATION: Blood pressure is 160/75, pulse of 71, temperature of 97.2, he is 99% on room air. GENERAL DESCRIPTION: An elderly male lying in bed in no distress. RESPIRATORY SYSTEM: Unlabored breathing. Clear to auscultation anteriorly. HERAT: S1, S2. Regular rate and rhythm. EXTREMITIES: Left big toe covered with no obvious drainage on the dressing. DIAGNOSTIC IMPRESSION AND PLAN: Patient with left big toe nonhealing wound with underlying osteomyelitis. Bone scan was positive. Blood culture has been negative for resistant pathogen. Recommend Rocephin 2 g daily for a total of 6 weeks. Once antibiotics are arranged he will be able to go home from ID standpoint. Local wound care with Aquacel Silver dressing. Continue supportive care. MMODL / IJN: [id number] /
[2017-09-29 00:18] VITALS: TEMP 97.6
[2017-09-29 07:03] LABS: Glucose,Whole Blood 93 mg/dL (75-99)
--- NOTE | 2017-09-29 07:12 | PN ---
PROGRESS NOTE SUBJECTIVE: This is a white male who had a PICC line today. He has osteomyelitis of the left great toe. We are having insurance pre-approval of his IV antibiotics and where to get those IV antibiotics. He will need those for multiple weeks due to osteomyelitis of left great toe. CARDIOVASCULAR: S1, S2. LUNGS: Transmitted upper airway sounds. GI: Soft. HEMATOLOGY: Negative Homans. INTEGUMENT: Shows great toe red with anterior dorsum pinpoint hole. ASSESSMENT: 1. Osteomyelitis, cellulitis of the great toe. 2. Insulin-dependent diabetes mellitus. 3. Degenerative disc disease. 4. Osteoarthritis. PLAN: Continue with IV antibiotics, wound care, possible discharge home next 24 hours with IV antibiotics for 6 weeks. MMODL / IJN: [id number] /
[2017-09-29 07:14] VITALS: BP 191/85; PULSE 68; RESP 17
[2017-09-29] MEDS: INSULIN ASPART 100 UNIT/ML 1 ML 10 ML VIAL SQ SCH ×2 (07:24→12:42)
[2017-09-29] MEDS: cefTRIAXone IN SWFI 2,000 MG/20 ML SYRINGE IVP SCH (08:04)
[2017-09-29] MEDS: INSULIN DETEMIR 100 UNIT/ML 10 ML VIAL SQ SCH (08:05)
[2017-09-29] MEDS: CYANOCOBALAMIN 500 MCG TAB PO SCH (08:07)
[2017-09-29] MEDS: GABAPENTIN 300 MG CAP PO SCH (08:07)
[2017-09-29] MEDS: ASCORBIC ACID 500 MG TAB PO SCH (08:07)
[2017-09-29] MEDS: CARVEDILOL 12.5 MG TAB PO SCH (08:07)
[2017-09-29] MEDS: FUROSEMIDE 80 MG TAB PO SCH (08:07)
[2017-09-29] MEDS: CHOLECALCIFEROL 400 UNIT TAB PO SCH (08:07)
[2017-09-29] MEDS: FAMOTIDINE 20 MG TAB PO SCH (08:07)
[2017-09-29] MEDS: FOLIC ACID 1 MG TAB PO SCH (08:07)
[2017-09-29] MEDS: TERBINAFINE 250 MG TAB PO SCH (08:08)
[2017-09-29] MEDS: ISOSORBIDE MONONITRATE ER 30 MG TAB.ER.24H PO SCH (08:08)
[2017-09-29] MEDS: MONTELUKAST 10 MG TAB PO SCH (08:08)
[2017-09-29] MEDS: TOPIRAMATE 25 MG TAB PO SCH (08:08)
[2017-09-29] MEDS: hydrALAZINE HCL 25 MG TAB PO SCH (08:08)
[2017-09-29] MEDS: PANTOPRAZOLE 40 MG TABLET PO SCH (08:08)
[2017-09-29] MEDS: traMADol 50 MG TAB PO SCH (08:09)
[2017-09-29] MEDS: NON-FORMULARY DRUG (Vitamin C/Biotin [Hair, Skin And Nails] 1 TAB) PO SCH (08:12)
[2017-09-29] MEDS: NON-FORMULARY DRUG (Omega-3 Fatty Acids/Fish Oil [Fish Oil 1,000 Mg Softgel] 1 CAP) PO SCH (08:12)
[2017-09-29] MEDS: [UNRECOGNIZED DRUG - OTHER] PO SCH (08:12)
[2017-09-29] MEDS: NON-FORMULARY DRUG (Ubidecarenone [Co Q-10] 100 MG) PO SCH (08:12)
[2017-09-29 11:56] LABS: Glucose,Whole Blood 170 mg/dL (75-99)
--- NOTE | 2017-09-29 15:27 | PN ---
PROGRESS NOTE DATE OF SERVICE: 09/29/2017 REASON FOR FOLLOWUP: Left big toe osteomyelitis. INTERVAL HISTORY: The patient is afebrile. has been breathing comfortably. Denies having any chest pain. No cough. No abdominal pain or any pain in the left big toe area. PHYSICAL EXAMINATION: Blood pressure is 156/78 with a pulse of 79, temperature 97.6. He is 98% on room air. General description is an elderly male, lying in bed in no distress. RESPIRATORY SYSTEM: Unlabored breathing, clear to auscultation anteriorly. HEART: S1, S2. Regular rate and rhythm. ABDOMEN: Soft, no tenderness. LEGS: Big toe swelling and redness has improved. LABS: White count 7.0, DIAGNOSTIC IMPRESSION AND PLAN: Patient with left big toe wound infection with osteomyelitis. PLAN: At this time is to continue with Rocephin 2 g daily. Currently waiting for the antibiotic arranged before discharge. Continue supportive care. MMODL / IJN: [id number] / MTDD
--- NOTE | 2017-10-18 08:49 | DS ---
DISCHARGE SUMMARY DATE OF ADMISSION: 09/22/2017. DATE OF DISCHARGE: 09/29/2017 DISCHARGE MEDICATIONS: 1. Glucosamine 2 tablets b.i.d. 2. Famotidine 20 daily. 3. Imdur 30 mg daily. 4. Singulair 10 mg daily. 5. Carvedilol 25 mg b.i.d. 6. Omeprazole 20 daily. 7. Neurontin 300 t.i.d. 8. Lasix 80 b.i.d. 9. Tramadol 50 t.i.d. 10.Oxy IR 5 mg b.i.d. 11.Topamax 25 mg b.i.d. 12.Lamisil 250 daily. 13.Calcitriol 0.5 mcg daily Wednesday and . 14.Warfarin 5 mg daily. 15.Bactrim Double Strength 1 q.12 hours. 16.Insulin a.c. and at bedtime. 17.Lantus 30 units subcu b.i.d. 18.Folic acid 0.8 mg daily. 19.Vitamin D3 four hundred units daily. 20.Hydralazine 75 mg t.i.d. 21.Rocephin 2000 mg IV Q for 24 hours. CONDITION: Stable. PROGNOSIS: Guarded, ambulate as tolerated. HOSPITAL COURSE OF EVENTS: This is a white male who was admitted to the hospital, was found to have a foci of tracheobronchitis, left big toe osteomyelitis. Patient had a PICC line placed and will need outpatient IV antibiotics, received IV antibiotics for multiple days in the hospital for osteomyelitis of the toe is Rocephin 2 gram daily. PICC line was placed. IV antibiotics was given. He was sent home in stable condition. Follow up as an outpatient. MMODL / IJN: [id number] /
== END 2017-09-29 16:14 | disposition home health service (06) | DRG 638 ==
LOC: 4MS4W 13:50
PROVIDERS: ADMIT Family Medicine; ATTEND Family Medicine
PROC: 02HV33Z Insertion of Infusion Device into Superior Vena Cava, Percutaneous Approach (ICD-10-PCS; principal; 2017-09-28 12:00)
DX: E11.69 Type 2 diabetes mellitus with other specified complication (principal); M86.9 Osteomyelitis, unspecified; E11.22 Type 2 diabetes mellitus with diabetic chronic kidney disease; E11.621 Type 2 diabetes mellitus with foot ulcer; I13.0 Hypertensive heart and chronic kidney disease with heart failure and stage 1 through stage 4 chronic kidney disease, or unspecified chronic kidney disease; I50.32 Chronic diastolic (congestive) heart failure; L02.612 Cutaneous abscess of left foot; L03.116 Cellulitis of left lower limb; E66.9 Obesity, unspecified; I25.10 Atherosclerotic heart disease of native coronary artery without angina pectoris; J45.909 Unspecified asthma, uncomplicated; K21.9 Gastro-esophageal reflux disease without esophagitis; L03.032 Cellulitis of left toe; L97.529 Non-pressure chronic ulcer of other part of left foot with unspecified severity; M19.90 Unspecified osteoarthritis, unspecified site; N18.9 Chronic kidney disease, unspecified; Z79.4 Long term (current) use of insulin; Z87.891 Personal history of nicotine dependence
CPT/HCPCS: 36569; 76937; 77001; 78315; 80053; 83036; 84550; 85025; 85610; 85652; 85730; 87070; 87075; 87205

== ENCOUNTER → 2017-11-04 | Outpatient (CLI) | payer MEDICARE, BC ==
--- NOTE | 2017-11-04 13:20 | XR ---
EXAMINATION TYPE: XR foot complete LT DATE OF EXAM: 11/04/2017 CLINICAL HISTORY: Left great toe pain/osteomyelitis TECHNIQUE: Frontal, lateral and oblique images of the left foot are obtained. COMPARISON: September 23, 2017 FINDINGS: There is lucency about the head of the proximal phalanx of the great toe. Early osteomyelit is is not excluded. There is subluxation/dislocation at the interphalangeal joint of the great toe. D egenerative narrowing various PIP and DIP joints. Vascular calcifications noted. No acute fracture se en. IMPRESSION: I cannot exclude early osteomyelitis involving the head of the first proximal phalanx. Degenerative c hanges with subluxation/dislocation at the interphalangeal joint. ICD 10 NO FRACTURE, INITIAL EVALUATION
== END | disposition home or self-care (01) ==
LOC: RADXRMAIN 12:46
PROVIDERS: ATTEND Internal Medicine Infectious Disease
DX: M79.674 Pain in right toe(s) (principal)

== ENCOUNTER → 2018-04-28 | Outpatient (CLI) | payer MEDICARE, BC ==
[2018-04-28 16:52] LABS: Basophils % (A) 0 %; Eosinophils # (A) 0.2 k/uL (0-0.7); Eosinophils % (A) 3 %; HCT 31.8 % (39.0-53.0); HGB 10.5 gm/dL (13.0-17.5); Hypochromasia Slight; Lymphocytes # (A) 0.9 k/uL (1.0-4.8); Lymphocytes % (A) 13 %; MCH 29.3 pg (25.0-35.0); MCV 88.6 fL (80.0-100.0); Mean Platelet Volume 6.9; Monocytes # (A) 0.4 k/uL (0-1.0); Monocytes % (A) 6 %; Neutrophils # (A) 5.3 k/uL (1.3-7.7); Neutrophils % (A) 77 %; Platelet Count 191 k/uL (150-450); RBC 3.59 m/uL (4.30-5.90); RDW 14.6 % (11.5-15.5); WBC 6.8 k/uL (3.8-10.6)
[2018-04-28 17:02] LABS: Albumin 3.6 g/dL (3.5-5.0); Potassium 5.3 mmol/L (3.5-5.1); Total Bilirubin 0.3 mg/dL (0.2-1.3); Total Protein 6.1 g/dL (6.3-8.2)
--- NOTE | 2018-04-28 18:51 | XR ---
EXAMINATION TYPE: XR chest 2V DATE OF EXAM: 04/28/2018 COMPARISON: 10/08/2015 HISTORY: Short of breath TECHNIQUE: Frontal and lateral views of the chest are obtained. FINDINGS: Heart is normal. Lungs are clear of consolidation. There is no pleural effusion. Thoracic aorta is atheromatous. There is left axillary pacemaker with the lead tips in the right ventricle. [place] thorax is intact. IMPRESSION: No active cardiopulmonary disease. No change.
== END | disposition home or self-care (01) ==
LOC: LABWHC1 16:05
PROVIDERS: ATTEND Internal Medicine Cardiovascular Disease
DX: I50.9 Heart failure, unspecified (principal)
CPT/HCPCS: 36415; 71046; 80053; 83880; 85025

== ENCOUNTER 2018-08-08 11:59 | Observation (INO) | payer MEDICARE, BC ==
--- NOTE | 2018-08-08 12:37 | ED ---
General Adult HPI - General Chief complaint: Fall Stated complaint: fall Time Seen by Provider: 08/08/18 12:20 Source: patient, family, EMS, RN notes reviewed Mode of arrival: EMS Limitations: no limitations - History of Present Illness Initial comments: Patient is a pleasant 77-year-old male presenting to the emergency department following a fall. Patient did have a fall last night and another one this morning. feels patient is more off balance and weaker than normal. No isolated area of weakness. She did notice some slurred speech is morning that has improved however not resolved. Patient states he did notice some slurred speech on himself last night. Patient does not feel confused. Patient did fall approximately one step and is on anticoagulation secondary to having a pacemaker and recent knee surgery per family. Patient only complains of discomfort left lateral lower leg secondary to the fall. No other area of injury. There is no discomfort at rest only with touch and movement. - Related Data Home Medications Medication Instructions Recorded Confirmed Carvedilol 25 mg PO BID@0900,2200 11/12/15 08/08/18 Famotidine 20 mg PO DAILY@0900 11/12/15 08/08/18 Furosemide [Lasix] 80 mg PO BID@0900,1600 11/12/15 08/08/18 Gabapentin [Neurontin] 300 mg PO TID@0900,1600,2200 11/12/15 08/08/18 Isosorbide Mononitrate [Isosorbide 15 mg PO DAILY@0900 11/12/15 08/08/18 Mononitrate ER] Montelukast [Singulair] 10 mg PO HS 11/12/15 08/08/18 Calcitriol 0.5 mcg PO MOTH 08/10/17 08/08/18 INSULIN LISPRO (humaLOG) [humaLOG] See Protocol SQ AC-TID 09/22/17 08/08/18 Carbidopa-Levodopa 10-100 mg 1 tab PO BID 08/08/18 08/08/18 [Sinemet 10-100] Ferrous Sulfate [Feosol] 325 mg PO BID 08/08/18 08/08/18 Insulin Glargine,Hum.rec.anlog 30 unit SQ Q12H 08/08/18 08/08/18 [Basaglar Kwikpen U-100] Sennosides [Senna] 8.6 mg PO Q12H 08/08/18 08/08/18 Tamsulosin [Flomax] 0.4 mg PO HS 08/08/18 08/08/18 Warfarin Sodium [Coumadin] 4 mg PO DAILY 08/08/18 08/08/18 oxyCODONE-APAP 10-325MG [Percocet 1 tab PO Q6H PRN 08/08/18 08/08/18 10-325 mg] Allergies Allergy/AdvReac Type Severity Reaction Status Date / Time No Known Allergies Allergy Verified 08/08/18 12:47 Review of Systems ROS Statement: Those systems with pertinent positive or pertinent negative responses have been documented in the HPI. ROS Other: All systems not noted in ROS Statement are negative. Constitutional: Denies: fever Eyes: Denies: eye pain ENT: Denies: throat pain Respiratory: Denies: cough, dyspnea Cardiovascular: Denies: chest pain Endocrine: Denies: fatigue Gastrointestinal: Denies: abdominal pain Genitourinary: Denies: dysuria Musculoskeletal: Denies: back pain Skin: Denies: rash Neurological: Reports: as per HPI, weakness (Generalized), confusion. Denies: headache Past Medical History Past Medical History: Atrial Fibrillation, Heart Failure, Diabetes Mellitus, GERD/Reflux, Hyperlipidemia, Hypertension, Osteoarthritis (OA), Renal Disease Additional Past Medical History / Comment(s): Cardiomyopathy, pulmonary hypertension, pt denies COPD as previously charted, pt no longer has hyperlipidemia-taken off medication, IDDM type II, bilateral feet peripheral neuropathy, recent past L great toe ulcer/osteomylitis-gram negative skin tammie , CKD stage IV-has occluded fistula L arm (never recieved dialysis), UTI with sepsis, chronic back/neck pain,. PUD, Left great toe osteomyelitis - 2017 History of Any Multi-Drug Resistant Organisms: None Reported Past Surgical History: Adenoidectomy, Orthopedic Surgery, Pacemaker, Tonsillectomy Additional Past Surgical History / Comment(s): lumbar facet blocks, lt breast cyst removed as child, bilateral cataract removal with lens implants,. Fistula left upper arm to use for dialysis-never used it-pt's stated "it's been occluded for 5 years", colonoscopy, picc line insertion/since removed. Total right knee replacement 02/2018 Past Anesthesia/Blood Transfusion Reactions: No Reported Reaction Type of Cardiac Device: Permanent Pacemaker Device Placement Date:: 2012 Past Psychological History: No Psychological Hx Reported Smoking Status: Former smoker Past Alcohol Use History: Rare Past Drug Use History: None Reported - Past Family History Mother Family Medical History: Diabetes Mellitus Additional Family Medical History / Comment(s): type 2 in her 70's Father Family Medical History: Diabetes Mellitus Additional Family Medical History / Comment(s): dm type 2 in his 70's General Exam Limitations: no limitations General appearance: alert, in no apparent distress Head exam: Present: atraumatic, normocephalic Eye exam: Present: normal appearance, PERRL, EOMI ENT exam: Present: normal oropharynx Neck exam: Absent: tenderness Respiratory exam: Present: normal lung sounds bilaterally Cardiovascular Exam: Present: regular rate, normal rhythm GI/Abdominal exam: Present: soft. Absent: tenderness Extremities exam: Present: tenderness (Mild tenderness left lateral lower leg.) Neurological exam: Present: alert, CN II-XII intact. Absent: motor sensory deficit Expanded Neurological exam: Present: protecting the airway Patient oriented to: Present: person, place. Absent: time Cranial nerves: EOM's Intact: Normal, Facial Sensation: Normal Sensory exam: Upper Extremity Light Touch: Normal, Lower Extremity Light Touch: Normal Motor strength exam: RUE: 5, LUE: 5, RLE: 5, LLE: 5 Eye Response: (4) open spontaneously Motor Response: (6) obeys commands Verbal Response: (4) confused conversation Psychiatric exam: Present: normal affect, normal mood Skin exam: Present: normal color Course Vital Signs 08/08/18 12:09 Temperature 99.8 F H Pulse Rate 88 Respiratory 20 Rate Blood Pressure 105/60 O2 Sat by Pulse 97 Oximetry - Reevaluation(s) Reevaluation #1: 08/08/18 12:32 Dr. Holman from trauma surgery did call back earlier 08/08/18 13:11 Case was again discussed with Dr. Holman. Patient had displayed cleared from trauma. EKG Findings - EKG Comments: EKG Findings:: Paced rhythm at 88. AZ 250. QRS 142. QT 420. QTc 508. Left axis. Wide-complex QRS. Lateral T wave inversion. Medical Decision Making - Medical Decision Making Patient reevaluated by myself, Dr. Desir. Patient resting comfortably in bed. Patient and family updated on results and plan. Case was discussed in detail with Dr. Bynum, who will admit his patient. - Lab Data Result diagrams: 08/08/18 13:14 08/08/18 13:14 Lab Results 08/08/18 08/08/18 08/08/18 Range/Units 13:14 13:14 13:14 WBC 15.1 H (3.8-10.6) k/uL RBC 4.28 L (4.30-5.90) m/uL Hgb 12.7 L (13.0-17.5) gm/dL Hct 38.1 L (39.0-53.0) % MCV 89.1 (80.0-100.0) fL MCH 29.7 (25.0-35.0) pg MCHC 33.3 (31.0-37.0) g/dL RDW 14.7 (11.5-15.5) % Plt Count 177 (150-450) k/uL Neutrophils % 91 % Lymphocytes % 4 % Monocytes % 4 % Eosinophils % 1 % Basophils % 0 % Neutrophils # 13.7 H (1.3-7.7) k/uL Lymphocytes # 0.5 L (1.0-4.8) k/uL Monocytes # 0.6 (0-1.0) k/uL Eosinophils # 0.2 (0-0.7) k/uL Basophils # 0.0 (0-0.2) k/uL PT (9.0-12.0) sec INR (<1.2) APTT (22.0-30.0) sec Sodium 139 (137-145) mmol/L Potassium 4.7 (3.5-5.1) mmol/L Chloride 102 (98-107) mmol/L Carbon Dioxide 23 (22-30) mmol/L Anion Gap 14 mmol/L BUN 77 H (9-20) mg/dL Creatinine 3.20 H (0.66-1.25) mg/dL Est GFR (CKD-EPI)AfAm 20 (>60 ml/min/1.73 sqM) Est GFR (CKD-EPI)NonAf 18 (>60 ml/min/1.73 sqM) Glucose 141 H (74-99) mg/dL Calcium 8.9 (8.4-10.2) mg/dL Total Bilirubin 0.9 (0.2-1.3) mg/dL AST 27 (17-59) U/L ALT 17 L (21-72) U/L Alkaline Phosphatase 83 (38-126) U/L Total Creatine Kinase 66 (55-170) U/L CK-MB (CK-2) <0.2 (0.0-2.4) ng/mL CK-MB (CK-2) Rel Index Troponin I 0.013 (0.000-0.034) ng/mL Total Protein 6.8 (6.3-8.2) g/dL Albumin 3.7 (3.5-5.0) g/dL Amylase 71 (30-110) U/L Lipase 92 (23-300) U/L Urine Color Urine Appearance (Clear) Urine pH (5.0-8.0) Ur Specific [place] (1.001-1.035) Urine Protein (Negative) Urine Glucose (UA) (Negative) Urine Ketones (Negative) Urine Blood (Negative) Urine Nitrite (Negative) Urine Bilirubin (Negative) Urine Urobilinogen (<2.0) mg/dL Ur Leukocyte Esterase (Negative) Urine RBC (0-5) /hpf Urine WBC (0-5) /hpf Urine Bacteria (None) /hpf Hyaline Casts (0-2) /lpf Urine Mucus (None) /hpf Urine Opiates Screen (NotDetected) Ur Oxycodone Screen (NotDetected) Urine Methadone Screen (NotDetected) Ur Propoxyphene Screen (NotDetected) Ur Barbiturates Screen (NotDetected) U Tricyclic Antidepress (NotDetected) Ur Phencyclidine Scrn (NotDetected) Ur Amphetamines Screen (NotDetected) U Methamphetamines Scrn (NotDetected) U Benzodiazepines Scrn (NotDetected) Urine Cocaine Screen (NotDetected) U Marijuana (THC) Screen (NotDetected) Serum Alcohol <10 mg/dL Blood Type Blood Type Confirm Blood Type Recheck Antibody Screen Spec Expiration Date 08/08/18 08/08/18 08/08/18 Range/Units 13:14 13:14 14:01 WBC (3.8-10.6) k/uL RBC (4.30-5.90) m/uL Hgb (13.0-17.5) gm/dL Hct (39.0-53.0) % MCV (80.0-100.0) fL MCH (25.0-35.0) pg MCHC (31.0-37.0) g/dL RDW (11.5-15.5) % Plt Count (150-450) k/uL Neutrophils % % Lymphocytes % % Monocytes % % Eosinophils % % Basophils % % Neutrophils # (1.3-7.7) k/uL Lymphocytes # (1.0-4.8) k/uL Monocytes # (0-1.0) k/uL Eosinophils # (0-0.7) k/uL Basophils # (0-0.2) k/uL PT >130.0 H (9.0-12.0) sec INR >10.0 H* (<1.2) APTT 136.1 H* (22.0-30.0) sec Sodium (137-145) mmol/L Potassium (3.5-5.1) mmol/L Chloride (98-107) mmol/L Carbon Dioxide (22-30) mmol/L Anion Gap mmol/L BUN (9-20) mg/dL Creatinine (0.66-1.25) mg/dL Est GFR (CKD-EPI)AfAm (>60 ml/min/1.73 sqM) Est GFR (CKD-EPI)NonAf (>60 ml/min/1.73 sqM) Glucose (74-99) mg/dL Calcium (8.4-10.2) mg/dL Total Bilirubin (0.2-1.3) mg/dL AST (17-59) U/L ALT (21-72) U/L Alkaline Phosphatase (38-126) U/L Total Creatine Kinase (55-170) U/L CK-MB (CK-2) (0.0-2.4) ng/mL CK-MB (CK-2) Rel Index Troponin I (0.000-0.034) ng/mL Total Protein (6.3-8.2) g/dL Albumin (3.5-5.0) g/dL Amylase (30-110) U/L Lipase (23-300) U/L Urine Color Urine Appearance (Clear) Urine pH (5.0-8.0) Ur Specific [place] (1.001-1.035) Urine Protein (Negative) Urine Glucose (UA) (Negative) Urine Ketones (Negative) Urine Blood (Negative) Urine Nitrite (Negative) Urine Bilirubin (Negative) Urine Urobilinogen (<2.0) mg/dL Ur Leukocyte Esterase (Negative) Urine RBC (0-5) /hpf Urine WBC (0-5) /hpf Urine Bacteria (None) /hpf Hyaline Casts (0-2) /lpf Urine Mucus (None) /hpf Urine Opiates Screen (NotDetected) Ur Oxycodone Screen (NotDetected) Urine Methadone Screen (NotDetected) Ur Propoxyphene Screen (NotDetected) Ur Barbiturates Screen (NotDetected) U Tricyclic Antidepress (NotDetected) Ur Phencyclidine Scrn (NotDetected) Ur Amphetamines Screen (NotDetected) U Methamphetamines Scrn (NotDetected) U Benzodiazepines Scrn (NotDetected) Urine Cocaine Screen (NotDetected) U Marijuana (THC) Screen (NotDetected) Serum Alcohol mg/dL Blood Type O Positive Blood Type Confirm O Positive Blood Type Recheck CABO Indicated Antibody Screen NEGATIVE Spec Expiration Date 08/11/2018 - 230008/08/18 08/08/18 Range/Units 14:49 15:00 WBC (3.8-10.6) k/uL RBC (4.30-5.90) m/uL Hgb (13.0-17.5) gm/dL Hct (39.0-53.0) % MCV (80.0-100.0) fL MCH (25.0-35.0) pg MCHC (31.0-37.0) g/dL RDW (11.5-15.5) % Plt Count (150-450) k/uL Neutrophils % % Lymphocytes % % Monocytes % % Eosinophils % % Basophils % % Neutrophils # (1.3-7.7) k/uL Lymphocytes # (1.0-4.8) k/uL Monocytes # (0-1.0) k/uL Eosinophils # (0-0.7) k/uL Basophils # (0-0.2) k/uL PT 10.7 (9.0-12.0) sec INR 1.1 (<1.2) APTT 25.8 (22.0-30.0) sec Sodium (137-145) mmol/L Potassium (3.5-5.1) mmol/L Chloride (98-107) mmol/L Carbon Dioxide (22-30) mmol/L Anion Gap mmol/L BUN (9-20) mg/dL Creatinine (0.66-1.25) mg/dL Est GFR (CKD-EPI)AfAm (>60 ml/min/1.73 sqM) Est GFR (CKD-EPI)NonAf (>60 ml/min/1.73 sqM) Glucose (74-99) mg/dL Calcium (8.4-10.2) mg/dL Total Bilirubin (0.2-1.3) mg/dL AST (17-59) U/L ALT (21-72) U/L Alkaline Phosphatase (38-126) U/L Total Creatine Kinase (55-170) U/L CK-MB (CK-2) (0.0-2.4) ng/mL CK-MB (CK-2) Rel Index Troponin I (0.000-0.034) ng/mL Total Protein (6.3-8.2) g/dL Albumin (3.5-5.0) g/dL Amylase (30-110) U/L Lipase (23-300) U/L Urine Color Light Yellow Urine Appearance Clear (Clear) Urine pH 5.0 (5.0-8.0) Ur Specific [place] 1.010 (1.001-1.035) Urine Protein Trace H (Negative) Urine Glucose (UA) Negative (Negative) Urine Ketones Negative (Negative) Urine Blood Negative (Negative) Urine Nitrite Negative (Negative) Urine Bilirubin Negative (Negative) Urine Urobilinogen <2.0 (<2.0) mg/dL Ur Leukocyte Esterase Trace H (Negative) Urine RBC 1 (0-5) /hpf Urine WBC 2 (0-5) /hpf Urine Bacteria Rare H (None) /hpf Hyaline Casts 25 H (0-2) /lpf Urine Mucus Rare H (None) /hpf Urine Opiates Screen Not Detected (NotDetected) Ur Oxycodone Screen Not Detected (NotDetected) Urine Methadone Screen Not Detected (NotDetected) Ur Propoxyphene Screen Not Detected (NotDetected) Ur Barbiturates Screen Not Detected (NotDetected) U Tricyclic Antidepress Not Detected (NotDetected) Ur Phencyclidine Scrn Not Detected (NotDetected) Ur Amphetamines Screen Not Detected (NotDetected) U Methamphetamines Scrn Not Detected (NotDetected) U Benzodiazepines Scrn Not Detected (NotDetected) Urine Cocaine Screen Not Detected (NotDetected) U Marijuana (THC) Screen Not Detected (NotDetected) Serum Alcohol mg/dL Blood Type Blood Type Confirm Blood Type Recheck Antibody Screen Spec Expiration Date - Radiology Data Radiology results: report reviewed (Computed tomography scan the brain shows atrophy and chronic changes without acute abnormality.), image reviewed (Chest x -ray shows likely atelectasis. X-ray left tib-fib shows no acute fracture. X- ray of the pelvis shows no acute abdomen Eric.) Disposition Clinical Impression: Weakness Disposition: ADMITTED IP TO THIS HOSP Is patient prescribed a controlled substance at d/c from ED?: No Referrals: Adán Bynum MD [Primary Care Provider] - 1-2 days Decision Time: 16:30
--- NOTE | 2018-08-08 12:48 | XR ---
EXAMINATION TYPE: XR chest 1V portable DATE OF EXAM: 08/08/2018 Comparison: 04/28/2018 Clinical History: 77-year-old male with fall, trauma Findings: Heart upper limits of normal in size. Atherosclerotic arch calcifications. Left anterior chest wall p acemaker generator with right atrial and right ventricular leads. Some mild patchy right basilar opac ities. No pneumothorax or significant pleural effusion. Impression: Some mild patchy opacity at the right base likely atelectasis. Less likely early infiltrate.
--- NOTE | 2018-08-08 12:50 | XR ---
EXAMINATION TYPE: XR tibia fibula LT DATE OF EXAM: 08/08/2018 COMPARISON: NONE HISTORY: 77-year-old male trauma, fall, pain TECHNIQUE: 2 views FINDINGS: Vascular calcifications are present and suggest underlying diabetes in her chronic kidney disease. No acute fracture is identified. Knee and ankle articulations appear grossly intact. Moderate size plan tar calcaneal spur. IMPRESSION: Left tibia/fibula without acute osseous abnormality seen.
--- NOTE | 2018-08-08 12:57 | XR ---
EXAMINATION TYPE: XR pelvis AP view DATE OF EXAM: 08/08/2018 CLINICAL HISTORY: pain TECHNIQUE: Single view the pelvis is submitted. FINDINGS: No evidence for fracture, dislocation or bony lesion. Joint spaces are well-preserved. S I joints appear symmetric. IMPRESSION: 1. No acute fracture or dislocation seen. ICD 10 NO FRACTURE, INITIAL EVALUATION
--- NOTE | 2018-08-08 12:58 | CT ---
EXAMINATION TYPE: CT brain wo con DATE OF EXAM: 08/08/2018 COMPARISON: None HISTORY: Slurred speech CT DLP: 899.[address] of the brain was performed. The ventricles, basal cisterns and sulci overlying the cerebral convexities demonstrate mild enlargem ent. There is no evidence for intracranial hemorrhage or sulcal effacement. There is decreased attenuation about the periventricular white matter and deep white matter of both c erebral hemispheres, compatible with chronic small vessel ischemia. Differential diagnosis does inclu de demyelination. No mass effects are seen.No midline shift. Osseous calvarium is intact. If symptoms persist consider MRI. IMPRESSION: 1. Age related atrophic and chronic small vessel ischemic change without acute intracranial process s een at this time.
[2018-08-08 13:33] LABS: Basophils % (A) 0 %; Eosinophils # (A) 0.2 k/uL (0-0.7); Eosinophils % (A) 1 %; HCT 38.1 % (39.0-53.0); HGB 12.7 gm/dL (13.0-17.5); Lymphocytes # (A) 0.5 k/uL (1.0-4.8); Lymphocytes % (A) 4 %; MCH 29.7 pg (25.0-35.0); MCHC 33.3 g/dL (31.0-37.0); MCV 89.1 fL (80.0-100.0); Mean Platelet Volume 8.5; Monocytes # (A) 0.6 k/uL (0-1.0); Monocytes % (A) 4 %; Neutrophils # (A) 13.7 k/uL (1.3-7.7); Neutrophils % (A) 91 %; Platelet Count 177 k/uL (150-450); RBC 4.28 m/uL (4.30-5.90); RDW 14.7 % (11.5-15.5); WBC 15.1 k/uL (3.8-10.6)
[2018-08-08 13:46] LABS: ALT 17 U/L (21-72); AST 27 U/L (17-59); Albumin 3.7 g/dL (3.5-5.0); Alcohol <10 mg/dL; Alkaline Phosphatase 83 U/L (38-126); Amylase 71 U/L (30-110); Anion Gap 14 mmol/L; Blood Urea Nitrogen 77 mg/dL (9-20); Calcium 8.9 mg/dL (8.4-10.2); Carbon Dioxide 23 mmol/L (22-30); Chloride 102 mmol/L (98-107); Glucose 141 mg/dL (74-99); Lipase 92 U/L (23-300); Potassium 4.7 mmol/L (3.5-5.1); Sodium 139 mmol/L (137-145); Total Bilirubin 0.9 mg/dL (0.2-1.3); Total Protein 6.8 g/dL (6.3-8.2)
[2018-08-08 13:52] LABS: Creatine Kinase 66 U/L (55-170)
[2018-08-08 14:07] LABS: Creatine Kinase MB <0.2 ng/mL (0.0-2.4); Troponin I 0.013 ng/mL (0.000-0.034)
[2018-08-08 14:08] LABS: INR >10.0 (<1.2); Prothrombin Time >130.0 sec (9.0-12.0)
[2018-08-08 14:09] LABS: Partial Thromboplastin Time 136.1 sec (22.0-30.0)
[2018-08-08] MEDS ORDERED: PHYTONADIONE ORAL 5 MG/5 ML ORAL.SYRG PO STA (14:34)
[2018-08-08 15:37] LABS: Appearance,Urine Clear (Clear); Bacteria,Urine Rare /hpf; Bilirubin,Urine Negative (Negative); Blood,Urine Negative (Negative); Color,Urine Light Yellow; Glucose,Urine (UA) Negative (Negative); Hyaline Casts,Urine 25 /lpf (0-2); Ketones,Urine Negative (Negative); Leukocyte Esterase,Urine Trace (Negative); Mucus,Urine Rare /hpf; Nitrite,Urine Negative (Negative); Protein,Urine Trace (Negative); RBC,Urine 1 /hpf (0-5); Urobilinogen,Urine <2.0 mg/dL (<2.0); WBC,Urine 2 /hpf (0-5)
[2018-08-08 15:48] LABS: Amphetamine Screen,Urine Not Detected (NotDetected); Barbiturate Screen,Urine Not Detected (NotDetected); Benzodiazepines Screen,Urine Not Detected (NotDetected); Cocaine Screen,Urine Not Detected (NotDetected); Methadone Screen, Urine Not Detected (NotDetected); Opiate Screen,Urine Not Detected (NotDetected); Oxycodone Screen, Urine Not Detected (NotDetected); Phencyclidine Screen,Urine Not Detected (NotDetected); Tricyclic Antidepressant,Urine Not Detected (NotDetected); Urn Cannabinoid Scrn Not Detected (NotDetected)
[2018-08-08 15:53] LABS: INR 1.1 (<1.2); Partial Thromboplastin Time 25.8 sec (22.0-30.0); Prothrombin Time 10.7 sec (9.0-12.0)
[2018-08-08] MEDS ORDERED: oxyCODONE-APAP 5-325MG 1 EACH TAB PO STA (16:23)
[2018-08-08] MEDS ORDERED: NALOXONE 0.4 MG/ML 1 ML VIAL IV PRN (16:31)
[2018-08-08] MEDS ORDERED: oxyCODONE-APAP 10-325MG 1 EACH TAB PO PRN (20:22)
[2018-08-08 21:09] VITALS: BMI 32.1
[2018-08-08] MEDS: SENNOSIDES 8.6 MG TAB PO SCH (21:13)
[2018-08-08 21:15] LABS: Glucose,Whole Blood 134 mg/dL (75-99)
[2018-08-08] MEDS: CARBIDOPA-LEVODOPA 10-100 MG 1 EACH TAB PO SCH (21:29)
[2018-08-08] MEDS: INSULIN DETEMIR 100 UNIT/ML 10 ML VIAL SQ SCH (21:30)
[2018-08-08] MEDS: INSULIN ASPART 100 UNIT/ML 1 ML 10 ML VIAL SQ SCH (21:30)
[2018-08-08] MEDS: GABAPENTIN 300 MG CAP PO SCH (21:35)
[2018-08-08] MEDS: MONTELUKAST 10 MG TAB PO SCH (21:35)
[2018-08-08] MEDS: CARVEDILOL 12.5 MG TAB PO SCH (21:35)
[2018-08-08] MEDS: TAMSULOSIN 0.4 MG CAP.ER.24H PO SCH (21:35)
[2018-08-08] MEDS: CALCITRIOL 0.25 MCG CAP PO SCH (21:35)
[2018-08-08] MEDS: SODIUM CHLORIDE 0.9% 1,000 ML IV SCH (23:05)
[2018-08-09 05:56] LABS: Hemoglobin A1C 6.1 % (4.0-6.0)
[2018-08-09 06:26] LABS: Glucose,Whole Blood 109 mg/dL (75-99)
[2018-08-09] MEDS: INSULIN ASPART 100 UNIT/ML 1 ML 10 ML VIAL SQ SCH ×4 (06:28→21:41)
[2018-08-09] MEDS: FERROUS SULFATE 325 MG TAB PO SCH ×2 (06:35→17:18)
[2018-08-09] MEDS: SODIUM CHLORIDE 0.9% 1,000 ML IV SCH ×2 (08:11→17:19)
[2018-08-09] MEDS: CARBIDOPA-LEVODOPA 10-100 MG 1 EACH TAB PO SCH ×2 (08:11→21:41)
[2018-08-09] MEDS: FUROSEMIDE 80 MG TAB PO SCH ×2 (08:12→17:19)
[2018-08-09] MEDS: ISOSORBIDE MONONITRATE ER 15 MG TAB PO SCH (08:12)
[2018-08-09] MEDS: CARVEDILOL 12.5 MG TAB PO SCH ×2 (08:12→21:40)
[2018-08-09] MEDS: GABAPENTIN 300 MG CAP PO SCH ×3 (08:12→21:40)
[2018-08-09] MEDS: FAMOTIDINE 20 MG TAB PO SCH (08:12)
[2018-08-09] MEDS: SENNOSIDES 8.6 MG TAB PO SCH ×2 (08:12→21:40)
[2018-08-09] MEDS: INSULIN DETEMIR 100 UNIT/ML 10 ML VIAL SQ SCH ×2 (08:57→21:40)
[2018-08-09 10:03] LABS: Albumin 3.5 g/dL (3.5-5.0); Calcium 8.6 mg/dL (8.4-10.2); Magnesium 2.1 mg/dL (1.6-2.3); Potassium 4.3 mmol/L (3.5-5.1); Total Bilirubin 0.5 mg/dL (0.2-1.3); Total Protein 6.5 g/dL (6.3-8.2)
--- NOTE | 2018-08-09 10:25 | US ---
EXAMINATION TYPE: US carotid duplex BILAT DATE OF EXAM: 08/09/2018 COMPARISON: NONE CLINICAL HISTORY: cva. Patient stated had overall weakness episode x 2; diabetic EXAM MEASUREMENTS: RIGHT: Peak Systolic Velocity (PSV) cm/sec ----- Right CCA: 66.0 ----- Right ICA: 83.2 ----- Right ECA: 55.4 ICA/CCA ratio: 1.3 RIGHT: End Diastole cm/sec ----- Right CCA: 11.8 ----- Right ICA: 23.7 ----- Right ECA: 0.0 LEFT: Peak Systolic Velocity (PSV) cm/sec ----- Left CCA: 52.6 ----- Left ICA: 62.6 ----- Left ECA: 109.1 ICA/CCA ratio: 1.2 LEFT: End Diastole cm/sec ----- Left CCA: 13.1 ----- Left ICA: 15.6 ----- Left ECA: 0.0 VERTEBRALS (direction of flow): Right Vertebral: Antegrade Left Vertebral: Antegrade Rhythm: Normal Moderate irregular wall plaque is noted at bilateral carotid bifurcation, but PSV is wnl bilaterally . IMPRESSION: Moderate degree of grayscale atheromatous plaquing at the carotid bulbs with no sonograp hically evident hemodynamically significant stenosis within either visualized carotid arterial system . Criteria for Assigning % of Stenosis / Diameter reduction (Estimation based on the indirect measurements of the internal carotid artery velocities (ICA PSV). 1. Normal (no stenosis)=ICA PSV < 125 cm/s: ratio < 2.0: ICA EDV<40 cm/s. 2. Less than 50% stenosis=ICA PSV < 125 cm/s: ratio < 2.0: ICA EDV<40 cm/s. 3. 50 to 69% stenosis=ICA PSV of 125 to 230 cm/s: ration 2.0 ? 4.0: ICA EDV 40-100 cm/s. 4. Greater than 70% stenosis to near occlusion= ICA PSV > 230 cm/s: ratio > 4.0: ICA EDV > 100 cm/s. 5. Near occlusion= ICA PSV velocities may be low or undetectable: variable ratio and ICA EDV. 6. Total occlusion=unable to detect flow.
--- NOTE | 2018-08-09 11:23 | ECHOF ---
Referral Reason:cva MEASUREMENTS -------- HEIGHT: 170.2 cm WEIGHT: 93.9 kg BP: 121/54 IVSd: 1.3 cm (0.6 - 1.1) LVIDd: 5.8 cm (3.9 - 5.3) LVPWd: 1.6 cm (0.6 - 1.1) IVSs: 1.7 cm LVIDs: 4.6 cm LVPWs: 1.8 cm Ao Diam: 3.4 cm (2.0 - 3.7) AV Cusp: 1.0 cm (1.5 - 2.6) LA Diam: 3.0 cm (2.7 - 3.8) MV EXCURSION: 10.542 mm (> 18.000) MV EF SLOPE: 58 mm/s (70 - 150) EPSS: 0.9 cm MV E Orestes: 0.76 m/s MV DecT: 168 ms MV A Orestes: 1.02 m/s MV E/A Ratio: 0.75 AV maxP.93 mmHg AV meanP.14 mmHg RAP: 5.00 mmHg RVSP: 29.16 mmHg FINDINGS -------- Sinus rhythm. This was a technically difficult study with suboptimal views. The left ventricular size is normal. There is moderate concentric left ventricular hypertrophy. T here is moderate global hypokinesis of LV . Overall left ventricular systolic function is severely impaired with, an EF between 25 - 30 %. The right ventricle is normal in size and function. The left atrial size is normal. The right atrium is normal in size. Lumason used Aortic valve is trileaflet and is mildly thickened. There is mild aortic stenosis present. Peak/m campbell gradient across the Aortic Valve is 22.93mmHg / 15.14mmHg. The mitral valve leaflets are mildly thickened. Mild mitral regurgitation is present. Mild tricuspid regurgitation present. The right ventricular systolic pressure, as measured by Doppl er, is 29.16mmHg. Pulmonic valve appears structurally normal. The aortic root size is normal. IVC Not well visulized. The pericardium is normal. CONCLUSIONS -------- 1. Sinus rhythm. 2. This was a technically difficult study with suboptimal views. 3. The left ventricular size is normal. 4. There is moderate concentric left ventricular hypertrophy. 5. There is moderate global hypokinesis of LV . 6. Overall left ventricular systolic function is severely impaired with, an EF between 25 - 30 %. 7. The right ventricle is normal in size and function. 8. The left atrial size is normal. 9. The right atrium is normal in size. 10. Lumason used 11. Aortic valve is trileaflet and is mildly thickened. 12. There is mild aortic stenosis present. 13. Peak/mean gradient across the Aortic Valve is 22.93mmHg / 15.14mmHg. 14. The mitral valve leaflets are mildly thickened. 15. Mild mitral regurgitation is present. 16. Mild tricuspid regurgitation present. 17. The right ventricular systolic pressure, as measured by Doppler, is 29.16mmHg. 18. Pulmonic valve appears structurally normal. 19. The aortic root size is normal. 20. IVC Not well visulized. 21. The pericardium is normal. INFECTION CONTROL NURSE: Ele Granado RDCS
[2018-08-09 11:27] LABS: Glucose,Whole Blood 146 mg/dL (75-99)
[2018-08-09 13:37] LABS: INR 1.1 (<1.2); Prothrombin Time 10.4 sec (9.0-12.0)
[2018-08-09 16:28] LABS: Glucose,Whole Blood 160 mg/dL (75-99)
[2018-08-09] MEDS: WARFARIN 3 MG TAB PO SCH (17:18)
[2018-08-09] MEDS ORDERED: WARFARIN 2 MG TAB PO SCH (18:00)
[2018-08-09 20:44] LABS: Glucose,Whole Blood 143 mg/dL (75-99)
[2018-08-09] MEDS: MONTELUKAST 10 MG TAB PO SCH (21:40)
[2018-08-09] MEDS: TAMSULOSIN 0.4 MG CAP.ER.24H PO SCH (21:40)
--- NOTE | 2018-08-09 22:55 | CONS ---
CONSULTATION DATE OF SERVICE: 08/09/2018. CHIEF COMPLAINT: Weakness and dysarthria. HISTORY OF PRESENT ILLNESS: The patient is a pleasant 77-year-old male, who was being evaluated by the Neurology Service per the request of Dr. Adán Bynum for the above-mentioned complaints. The patient was brought into [facility] Emergency Room after he suffered a fall at home and was too weak to get back up. The patient states that he was leaving his house and was taking a step down into his garage when he felt like his legs gave out on him. He denies having any lateralizing weakness and just "felt weak all over." In the emergency room, he was noticed to have some slurred speech but the patient denies having any slurred speech throughout this episode. He denies any previous episodes similar to this. At the time of my evaluation, he is sitting up in his bed and appears to be in no acute distress. He feels like he is back to his baseline and denies any weakness at this time. The patient does have a history of atrial fibrillation and is on Coumadin at home. There was a discrepancy in the coagulopathy workup as his initial INR was greater than 10 and a repeat INR 2 hours later was 1.1. A CT scan of the brain was done, which showed no acute abnormalities. There was generalized atrophy and small-vessel ischemic changes. His carotid Doppler showed plaques involving bilateral bulbs, but there was no hemodynamically significant stenosis. His comprehensive metabolic profile showed renal insufficiency with a BUN of 77, and creatinine of 3.44. He does report a history of chronic renal insufficiency. He has been started on IV hydration. His CBC showed mild leukocytosis at 15.1, and mild anemia with a hemoglobin of 12.7. His cardiac enzymes, urinalysis, and urine drug screen were normal. PAST MEDICAL HISTORY: Atrial fibrillation, chronic renal insufficiency, heart failure, diabetes, gastroesophageal reflux disease, dyslipidemia, hypertension, arthritis, cardiomyopathy, pulmonary hypertension, history of osteomyelitis, history of adenoidectomy, orthopedic surgeries, pacemaker placement, tonsillectomy. SOCIAL HISTORY: The patient is a former smoker. He denies any drug use. He rarely drinks alcohol. FAMILY HISTORY: Positive for diabetes. HOME MEDICATIONS: Reviewed in the chart. ALLERGIES: No known drug allergies. REVIEW OF SYSTEMS: CONSTITUTIONAL: Negative. EYES: Negative. ENT: Negative. CARDIOVASCULAR: As mentioned above. RESPIRATORY: Negative. NEUROLOGICAL: As mentioned above. GASTROINTESTINAL: Positive for occasional heartburn. GENITOURINARY: As mentioned above. PSYCHIATRIC: Negative. ENDOCRINE: Positive for diabetes. MUSCULOSKELETAL: Positive for chronic low back pain and joint pain. DERMATOLOGICAL: Negative. PHYSICAL EXAM: VITAL SIGNS: Temperature of 98.6, pulse 82, respirations 20, blood pressure 131/62. GENERAL APPEARANCE: The patient is a well-developed, elderly male, who appears to be in no acute distress. HEENT: Normocephalic, atraumatic, no facial asymmetry is seen. NECK: Supple with no masses felt. CARDIOVASCULAR: Regular rate and rhythm. ABDOMEN: Nontender, nondistended. EXTREMITIES: No edema or clubbing. Significant bruising is seen in bilateral upper extremities. NEUROLOGIC: The patient is alert, aware and oriented x3. Speech and language are normal. Strength is full in all 4 extremities. Sensory exam was normal to light touch in all 4 extremities. No pronator drift is seen. Qbuckq-ggdy-kypefp testing showed no dysmetria. No facial asymmetry is seen on cranial nerve testing. IMPRESSION: 1. Dysarthria, resolved. 2. Generalized weakness, resolved. 3. Recent fall. 4. Coagulopathy. 5. Atrial fibrillation. RECOMMENDATIONS: The patient did suffer a recent fall and he was unable to get up, complaining of generalized weakness at that time which has completely resolved. He was stepping into his garage when he fell and his generalized weakness may have been due to the acute trauma. His neurological examination is normal at this time and he has no weakness. The patient denies having any dysarthria throughout this episode and his speech is normal at the time of my evaluation. Physical therapy has been consulted. I do recommend repeating an INR as it was significantly inconsistent as mentioned above. I do recommend adjusting his Coumadin dose depending on his repeat INR. Continue neuro checks. I will continue to follow with you. Further recommendations to follow. Thank you, Dr. Bynum, for allowing me to participate in the care of your patient. If you have any questions, please feel free to contact me. MMODL / IJN: [id number] /
--- NOTE | 2018-08-09 23:54 | CONS ---
CONSULTATION REASON FOR CONSULT: Renal failure. HISTORY OF PRESENT ILLNESS: The patient is a 77-year-old male who was admitted to the hospital with complaints of weakness. He also fell at home. The patient stated that he was too weak to maintain his balance. It appears that he had also been confused with slurred speech, according to the notes. He denied any significant diarrhea, nausea or vomiting. The patient did state that he had not been eating much for the past few days. There was no fever, cough, chills. Patient denied use of any nonsteroidal anti-inflammatory agents. His serum creatinine was 3.2 mg/dL yesterday. It is at 3.4 mg/dL now. Patient does have chronic kidney disease, NKF stage IV, with previous creatinine about 2.1 to 2.4 mg/dL. Etiology is nephrosclerosis. Blood pressure was slightly on the lower side on initial admission with systolic of 105 mmHg. Patient has been voiding. He is currently maintained on normal saline at 75 mL/hour. PAST MEDICAL HISTORY: 1. 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 2. Hypertension. 3. Atrial fibrillation. 4. Type 2 diabetes. 5. Gastroesophageal reflux disease. 6. Osteoarthritis. 7. Hyperlipidemia. 8. Cardiomyopathy. 9. Pulmonary hypertension. 10.COPD. 11.Peripheral neuropathy. 12.Peripheral vascular disease. 13.Previous history of UTI. 14.History of osteomyelitis. PAST SURGICAL HISTORY: 1. Appendectomy. 2. Orthopedic surgery in the form of spine surgery. 3. Cataract surgery. 4. Colonoscopy. 5. PICC line placement. 6. AV fistula placement, which was never used. 7. Total right knee arthroplasty. 8. Permanent pacemaker placement. SOCIAL HISTORY: Patient is a former smoker. No history of drug abuse or alcohol abuse. MEDICATIONS: Medications prior to admission included: 1. Insulin. 2. Lasix. 3. Pepcid. 4. Coreg. 5. Imdur. 6. Singulair. 7. Calcitriol. 8. Iron. 9. Flomax. 10.Coumadin. 11.Neurontin. ALLERGIES: NONE. REVIEW OF SYSTEMS: As per HPI. PHYSICAL EXAMINATION: Patient is comfortable, awake, alert, oriented x3, not in any acute distress. Blood pressure this morning when patient was seen was 131/62, heart rate 82 per minute. He was afebrile. EXAMINATION OF THE HEART: S1, S2. EXAMINATION OF LUNGS: Bilateral breath sounds are heard. ABDOMEN: Soft, non-tender. Examination of lower extremities shows no significant edema. 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 LABS: Sodium of 140, potassium 4.3, chloride 103, CO2 is 25, BUN 77, serum creatinine 3.4. UA shows trace protein, WBCs 2. Hemoglobin was 12.7 yesterday and white cell count 15.1. Chest x-ray shows patchy opacity in the right base. ASSESSMENT: 1. Acute kidney injury, most likely prerenal. Continue with IV fluids. Repeat labs in a.m. Avoid hypotension. Continue to avoid any nephrotoxic agents. Check post- void residual. Rule out urine retention. I will hold off on the Lasix for now. 2. Chronic kidney disease, stage IV, secondary to nephrosclerosis with baseline creatinine about 2.4 to 2.7 mg/dL. Patient had an AV fistula placed in his left arm which was not used, and it is currently not functional. 3. Hypertension, controlled. Decrease dose of Coreg to 12.5 mg twice a day. 4. Chronic kidney disease mineral bone disorder, maintained on calcitriol, which we will continue. 5. Benign prostatic hypertrophy, maintained on Flomax. 6. Type 2 diabetes, currently on insulin. 7. History of fall, possibly related to hypotension. Rule out orthostatic hypotension. 8. Cardiomyopathy, ejection fraction of 25% to 30%, and global hypokinesis of the left ventricle. PLAN: Continue IV fluids for now. Hold off on Lasix. Repeat labs in a.m. Check post-void residual. Decrease dose of Coreg to 12.5 mg b.i.d. Thank you for this consultation. We will continue to follow the patient with you during his hospitalization. MMODL / IJN: [id number] /
--- NOTE | 2018-08-09 23:55 | HP ---
HISTORY AND PHYSICAL CHIEF COMPLAINT: A 77-year-old white male with weakness and dysarthria, being evaluated per Neurologic Service due to weakness and lethargy and falls at home, too weak to get back up. He was at his house, stepped out into his garage and felt his legs give out on him. He felt weak all over. He had some slurred speech in the ER. He was admitted to the hospital for possible stroke versus seizure. He had severely elevated Coumadin level in the emergency room due to atrial fibrillation. CT scan of the head showed no bleed. Medications given to bring INR down to 1.1. Carotid shows no significant stenosis. He has chronic renal insufficiency. BUN 77, creatinine 3.44. He is on IV hydration. Hemoglobin 12.7. Cardiac workup so far has been negative. PAST HISTORY: Atrial fibrillation, chronic renal insufficiency, chronic kidney disease stage 3, heart failure, diabetes mellitus, GERD, dyslipidemia, hypertension, osteoarthritis, cardiomyopathy, hypertension, history of osteomyelitis. PAST SURGICAL HISTORY: Pacemaker placement, tonsillectomy. SOCIAL HISTORY: Former smoker and rarely drinks alcohol. No illicit drug use. FAMILY HISTORY: Diabetes. HOME MEDICINES: See orders. ALLERGIES: No known drug allergies. REVIEW OF SYSTEMS: A 14-point review of systems is negative except for as mentioned in HPI, except for musculoskeletal, he has severely arthritic knees as well as degenerative disk disease, cervical neuropathy, lumbar neuropathy. ASSESSMENT: 1. Dysarthria, unclear etiology. 2. Generalized weakness. 3. Recent fall. 4. Coagulopathy. 5. Atrial fibrillation. 6. Transient ischemic attack versus seizure. PLAN: Neurology and Cardiology workup. Rehydrate. Readjust medications. Adjust Coumadin dose. Physical therapy. Possible discharge home when cleared by Neurology and Cardiology in the next 24 hours. MMODL / IJN: [id number] /
[2018-08-10 05:49] LABS: Glucose,Whole Blood 157 mg/dL (75-99)
[2018-08-10] MEDS: INSULIN ASPART 100 UNIT/ML 1 ML 10 ML VIAL SQ SCH ×4 (06:44→22:36)
[2018-08-10] MEDS: FERROUS SULFATE 325 MG TAB PO SCH ×2 (06:45→16:16)
[2018-08-10 07:01] LABS: Basophils % (A) 0 %; Eosinophils # (A) 0.3 k/uL (0-0.7); Eosinophils % (A) 4 %; HCT 32.7 % (39.0-53.0); HGB 10.7 gm/dL (13.0-17.5); Lymphocytes # (A) 0.8 k/uL (1.0-4.8); Lymphocytes % (A) 12 %; MCH 30.2 pg (25.0-35.0); MCHC 32.7 g/dL (31.0-37.0); MCV 92.4 fL (80.0-100.0); Mean Platelet Volume 7.3; Monocytes # (A) 0.4 k/uL (0-1.0); Monocytes % (A) 6 %; Neutrophils # (A) 5.1 k/uL (1.3-7.7); Neutrophils % (A) 76 %; Platelet Count 138 k/uL (150-450); RBC 3.54 m/uL (4.30-5.90); RDW 14.6 % (11.5-15.5); WBC 6.8 k/uL (3.8-10.6)
[2018-08-10 07:10] LABS: Calcium 8.4 mg/dL (8.4-10.2); Potassium 4.5 mmol/L (3.5-5.1); Total Bilirubin 0.3 mg/dL (0.2-1.3); Total Protein 5.7 g/dL (6.3-8.2)
[2018-08-10] MEDS: GABAPENTIN 300 MG CAP PO SCH ×3 (08:44→20:01)
[2018-08-10] MEDS: FAMOTIDINE 20 MG TAB PO SCH (08:44)
[2018-08-10] MEDS: CARVEDILOL 12.5 MG TAB PO SCH ×2 (08:44→20:01)
[2018-08-10] MEDS: ISOSORBIDE MONONITRATE ER 15 MG TAB PO SCH (08:44)
[2018-08-10] MEDS: CARBIDOPA-LEVODOPA 10-100 MG 1 EACH TAB PO SCH ×2 (08:44→20:01)
[2018-08-10] MEDS: SENNOSIDES 8.6 MG TAB PO SCH ×2 (08:45→20:01)
[2018-08-10] MEDS: SODIUM CHLORIDE 0.9% 1,000 ML IV SCH ×2 (08:45→20:02)
[2018-08-10] MEDS: INSULIN DETEMIR 100 UNIT/ML 10 ML VIAL SQ SCH ×2 (08:58→22:36)
--- NOTE | 2018-08-10 10:07 | P.CRDCN ---
History of Present Illness Consult date: 08/10/18 Requesting physician: Adán Bynum Chief complaint: Weakness History of present illness: This is a pleasant 77-year-old gentleman who follows with Dr. Liu in the office. He has known history of chronic kidney disease, hypertension, paroxysmal H or fibrillation, diabetes, hyperlipidemia, osteoarthritis, pulmonary hypertension, COPD, peripheral vascular disease and history of osteomyelitis. Patient also has history of prior pacemaker implantation. He presents to the hospital after experiencing a fall. According to the patient he has felt extremely weak for the last couple of days , and somewhat off balance. He denies any syncopal episode, no confusion, no dizziness or lightheadedness. CAT scan of the brain was performed on arrival here which revealed age-related atrophic and chronic small vessel ischemic change without any acute intracranial process. Chest x-ray showed some mild patchy obesity at the right base which was likely atelectasis. X-ray of the pelvis did not reveal any acute fracture or dislocation. X-ray of the tibia and fibula without any acute osseous abnormality. Carotid Doppler study revealed moderate degree of du scale 3 moderate plaquing at the carotid bulbs but no evidence of hemodynamically significant stenosis. Echocardiogram with Doppler study was performed which revealed an ejection fraction of 25-30%. Blood pressure 138/68, heart rate in the 70s, 98% on room air. White blood cell count on admission 15.1, 6.8 this morning, hemoglobin 10.7, platelet count 138. Sodium 143, potassium 4.5, BUN 76, creatinine 2.9. Creatinine on admission was 3. Troponin 0.013. Past Medical History Past Medical History: Atrial Fibrillation, Heart Failure, Diabetes Mellitus, GERD/Reflux, Hyperlipidemia, Hypertension, Osteoarthritis (OA), Renal Disease Additional Past Medical History / Comment(s): Cardiomyopathy, pulmonary hypertension, pt denies COPD as previously charted, pt no longer has hyperlipidemia-taken off medication, IDDM type II, bilateral feet peripheral neuropathy, recent past L great toe ulcer/osteomylitis-gram negative skin tammie , CKD stage IV-has occluded fistula L arm (never recieved dialysis), UTI with sepsis, chronic back/neck pain,. PUD, Left great toe osteomyelitis - 2017 History of Any Multi-Drug Resistant Organisms: None Reported Past Surgical History: Adenoidectomy, Orthopedic Surgery, Pacemaker, Tonsillectomy Additional Past Surgical History / Comment(s): lumbar facet blocks, lt breast cyst removed as child, bilateral cataract removal with lens implants,. Fistula left upper arm to use for dialysis-never used it-pt's stated "it's been occluded for 5 years", colonoscopy, picc line insertion/since removed. Total right knee replacement 02/2018 Past Anesthesia/Blood Transfusion Reactions: No Reported Reaction Type of Cardiac Device: Permanent Pacemaker Device Placement Date:: 2012 Past Psychological History: No Psychological Hx Reported Additional Psychological History / Comment(s): pt lives with his beckie in a 2 story home that has 1 front step and 12 steps to 2nd level where bedroom is. has 1 pet bird. no outside services recieved and no medical equipment. Pt drives. Smoking Status: Former smoker Past Alcohol Use History: Rare Additional Past Alcohol Use History / Comment(s): STARTED SMOKING 1964, QUIT 1993- 1-2 ppd Past Drug Use History: None Reported - Past Family History Mother Family Medical History: Diabetes Mellitus Additional Family Medical History / Comment(s): type 2 in her 70's Father Family Medical History: Diabetes Mellitus Additional Family Medical History / Comment(s): dm type 2 in his 70's Medications and Allergies Home Medications Medication Instructions Recorded Confirmed Type Carvedilol 25 mg PO BID@0900,2200 11/12/15 08/08/18 History Famotidine 20 mg PO DAILY@0900 11/12/15 08/08/18 History Furosemide [Lasix] 80 mg PO BID@0900,1600 11/12/15 08/08/18 History Gabapentin [Neurontin] 300 mg PO TID@0900,1600,2200 11/12/15 08/08/18 History Isosorbide Mononitrate [Isosorbide 15 mg PO DAILY@0900 11/12/15 08/08/18 History Mononitrate ER] Montelukast [Singulair] 10 mg PO HS 11/12/15 08/08/18 History Calcitriol 0.5 mcg PO MOTH 08/10/17 08/08/18 History INSULIN LISPRO (humaLOG) [humaLOG] See Protocol SQ AC-TID 09/22/17 08/08/18 History Carbidopa-Levodopa 10-100 mg 1 tab PO BID 08/08/18 08/08/18 History [Sinemet 10-100] Ferrous Sulfate [Feosol] 325 mg PO BID 08/08/18 08/08/18 History Insulin Glargine,Hum.rec.anlog 30 unit SQ Q12H 08/08/18 08/08/18 History [Basaglar Kwikpen U-100] Sennosides [Senna] 8.6 mg PO Q12H 08/08/18 08/08/18 History Tamsulosin [Flomax] 0.4 mg PO HS 08/08/18 08/08/18 History Warfarin Sodium [Coumadin] 4 mg PO DAILY 08/08/18 08/08/18 History oxyCODONE-APAP 10-325MG [Percocet 1 tab PO Q6H PRN 08/08/18 08/08/18 History 10-325 mg] Allergies Allergy/AdvReac Type Severity Reaction Status Date / Time No Known Allergies Allergy Verified 08/08/18 12:47 Physical Exam Vitals: Vital Signs Temp Pulse Resp BP Pulse Ox 08/10/18 08:00 97.6 F 82 18 143/69 97 08/10/18 04:00 98.1 F 78 15 138/69 98 08/10/18 00:00 72 19 97 08/09/18 20:00 98.7 F 75 15 167/80 98 08/09/18 16:00 98.1 F 77 20 129/65 96 08/09/18 12:00 97.9 F 72 20 126/66 98 Intake and Output 08/09/18 08/10/18 08/10/18 22:59 06:59 14:59 Intake Total 180 600 240 Output Total 535 Balance 180 65 240 Intake: Intake, IV Titration 600 Amount Sodium Chloride 0.9% 1, 600 000 ml @ 75 mls/hr IV . [id number] [facility] Rx#:[id number] Oral 180 240 Output: Urine 535 Other: Voiding Method Toilet Toilet Urinal Urinal # Voids 2 2 2 Weight 94.8 kg PHYSICAL EXAMINATION: GENERAL: 77-year-old gentleman in no acute distress at the time of my examination HEENT: Head is atraumatic, normocephalic. Pupils equal, round. Sclera anicteric. Conjunctiva are clear. Mucous membranes of the mouth are moist. Neck is supple. There is no elevated jugular venous pressure. No carotid bruit is heard. HEART EXAMINATION: Heart S1 and S2 systolic murmur. CHEST EXAMINATION: Lungs are clear with fine crackles to bilateral bases . No chest wall tenderness is noted on palpation or with deep breathing. ABDOMEN: Soft, nontender. Bowel sounds are heard. No organomegaly noted. EXTREMITIES: 2+ peripheral pulses with no evidence of peripheral edema and no calf tenderness noted. NEUROLOGIC patient is awake, alert and oriented times 3. . Results 08/10/18 05:41 08/10/18 05:41 Cardiac Enzymes 08/09/18 08/10/18 Range/Units 08:47 05:41 AST 22 23 (17-59) U/L Coagulation 08/09/18 08/10/18 Range/Units 13:07 05:41 PT 10.4 10.0 (9.0-12.0) sec CBC 08/10/18 Range/Units 05:41 WBC 6.8 (3.8-10.6) k/uL RBC 3.54 L (4.30-5.90) m/uL Hgb 10.7 L (13.0-17.5) gm/dL Hct 32.7 L (39.0-53.0) % Plt Count 138 L (150-450) k/uL Comprehensive Metabolic Panel 08/09/18 08/10/18 Range/Units 08:47 05:41 Sodium 140 143 (137-145) mmol/L Potassium 4.3 4.5 (3.5-5.1) mmol/L Chloride 103 109 H (98-107) mmol/L Carbon Dioxide 25 26 (22-30) mmol/L BUN 77 H 76 H (9-20) mg/dL Creatinine 3.44 H 2.97 H (0.66-1.25) mg/dL Glucose 98 156 H (74-99) mg/dL Calcium 8.6 8.4 (8.4-10.2) mg/dL AST 22 23 (17-59) U/L ALT 13 L 22 (21-72) U/L Alkaline Phosphatase 67 82 (38-126) U/L Total Protein 6.5 5.7 L (6.3-8.2) g/dL Albumin 3.5 3.0 L (3.5-5.0) g/dL Current Medications Generic Name Dose Route Start Last Admin Trade Name Freq PRN Reason Stop Dose Admin Calcitriol 0.5 mcg 08/08/18 21:00 08/08/18 21:35 Rocaltrol PO 0.5 mcg MOTH ENRIQUE Administration Carbidopa/Levodopa 1 each 08/08/18 21:00 08/10/18 08:44 Sinemet 10-100 PO 1 each BID ENRIQUE Administration Carvedilol 12.5 mg 08/09/18 22:00 08/10/18 08:44 Coreg PO 12.5 mg BID@0900,2200 ENRIQUE Administration Famotidine 20 mg 08/09/18 09:00 08/10/18 08:44 Pepcid PO 20 mg DAILY@0900 ENRIQUE Administration Ferrous Sulfate 325 mg 08/09/18 07:30 08/10/18 06:45 Feosol PO 325 mg AC-BID ENRIQUE Administration Gabapentin 300 mg 08/08/18 22:00 08/10/18 08:44 Neurontin PO 300 mg TID@0900,1600,2200 ENRIQUE Administration Sodium Chloride 1,000 mls @ 75 mls/hr 08/08/18 16:45 08/10/18 08:45 Saline 0.9% IV 75 mls/hr .[id number] ENRIQUE Administration Insulin Aspart 0 unit 08/08/18 21:00 08/10/18 06:44 Novolog SQ 1 unit ACHS ENRIQUE Administration Protocol Insulin Detemir 30 unit 08/08/18 21:00 08/10/18 08:58 Levemir SQ 30 unit Q12HR ENRIQUE Administration Isosorbide Mononitrate 15 mg 08/09/18 09:00 08/10/18 08:44 Imdur PO 15 mg DAILY@0900 ENRIQUE Administration Montelukast Sodium 10 mg 08/08/18 21:00 08/09/18 21:40 Singulair PO 10 mg HS ENRIQUE Administration Naloxone HCl 0.2 mg 08/08/18 16:31 Narcan IV Q2M PRN Opioid Reversal Oxycodone/Acetaminophen 1 each 08/08/18 20:22 Percocet 10-325 PO Q6H PRN Pain Senna 8.6 mg 08/08/18 21:00 08/10/18 08:45 Senokot PO 8.6 mg Q12HR ENRIQUE Administration Tamsulosin HCl 0.4 mg 08/08/18 21:00 08/09/18 21:40 Flomax PO 0.4 mg HS ENRIQUE Administration Warfarin Sodium 3 mg 08/09/18 18:00 08/09/18 17:18 Coumadin PO 3 mg DAILY@1800 ENRIQUE Administration Intake and Output 08/09/18 08/10/18 08/10/18 22:59 06:59 14:59 Intake Total 180 600 240 Output Total 535 Balance 180 65 240 Intake: Intake, IV Titration 600 Amount Sodium Chloride 0.9% 1, 600 000 ml @ 75 mls/hr IV . [id number] ENRIQUE Rx#:[id number] Oral 180 240 Output: Urine 535 Other: Voiding Method Toilet Toilet Urinal Urinal # Voids 2 2 2 Weight 94.8 kg 08/10/18 05:41 08/10/18 05:41 EKG Interpretations (text) EKG shows atrial sensed V paced rhythm. Underlying normal sinus rhythm. Assessment and Plan Plan: Assessment and plan #1 generalized weakness with fall #2 paroxysmal atrial fibrillation, on Coumadin at home for anticoagulation, INR subtherapeutic. #3 prior pacemaker implantation #4 hypertension #5 diabetes #6 hyperlipidemia #7 GERD #8 COPD #9 peripheral vascular disease #10 history of osteoarthritis #11 nonischemic cardiomyopathy #12 chronic kidney disease Plan Patient denies any dizziness, no syncope. We will however check orthostatics on the patient and monitor for any significant tachycardia or bradycardia arrhythmias. We will also interrogate the pacemaker. We will get Dr. Liu's office notes and reviewed this. Patient is not currently on an SHARDA inhibitor because of abnormal renal function. Further Recommendations to follow. DNP note has been reviewed, I agree with a documented findings and plan of care. Patient was seen and examined.
[2018-08-10 11:45] LABS: Glucose,Whole Blood 116 mg/dL (75-99)
--- NOTE | 2018-08-10 12:40 | P.PN ---
Progress Note - Text Progress Note Date: 08/10/18 This is an addendum to the cardiology consultation dictated. Patients pacemaker was interrogated and is functioning appropriately. Blood pressure stable. From cardiology's perspective, we will follow this patient along with you now on an as-needed basis only, please don't hesitate to call with any questions. DNP note has been reviewed, I agree with a documented findings and plan of care. Patient was seen and examined.
[2018-08-10 13:20] LABS: T4, Free (Free Thyroxine) 1.23 ng/dL (0.78-2.19)
--- NOTE | 2018-08-10 16:08 | P.PN ---
Subjective Progress Note Date: 08/10/18 Principal diagnosis: Weakness, dysarthria Neurology is following a 69-year-old male for weakness and dysarthria. Patient was brought to the emergency room after feeling too weak to get back up from a fall. Patient was at home during incident. Patient was stepping down from his home in the garage when he fell and perceived that his leg was giving out. Patient denied any lateralizing weakness but had feeling of generalized sensation of weakness all over. Patient was observed to have some slurred speech while in the ED. Patient denied any previous episode of-like event. On contact, patient was alert and oriented 3, resting in bed in no acute distress. No visitors in the room. Patient states that he is completely back to baseline, no weakness, no dysarthria. No lateralizing weakness, vision changes or other neurologic deficits. Patient CT of the brain was negative. Patient's carotid Doppler noted no hemodynamically significant stenosis. Patient's neurological checks of been normal. Nursing reports neurological status changes have not taken place during patient's stay. Patient is currently on Coumadin and his INR value was abnormal during early testing. INR has normalized and is within therapeutic window. Objective - Vital Signs Vital signs: Vital Signs Temp 97.0 F L 08/10/18 12:00 Pulse 72 08/10/18 12:00 Resp 18 08/10/18 12:00 BP 135/69 08/10/18 12:00 Pulse Ox 98 08/10/18 12:00 Intake & Output 08/09/18 08/10/18 08/10/18 18:59 06:59 18:59 Intake Total 733 828 5774 Output Total 535 Balance 938 84 9467 Weight 94.8 kg Intake: Intake, IV Titration 600 600 Amount Sodium Chloride 0.9% 1, 600 600 000 ml @ 75 mls/hr IV . [id number] [facility] Rx#:[id number] Oral 660 600 Output: Urine 535 Other: Voiding Method Toilet Urinal # Voids 2 2 2 - Exam Gen. appearance: Alert, in no apparent distress Head: Atraumatic normocephalic, normal inspection Eyes: Well appearance, PERRL, EOMI. absent: Scleral icterus, conjunctival injection, nystagmus, periorbital swelling. Ear nose and throat: Normal exam, mucous membranes moist Neck: Normal inspection. Absent tenderness, lymphadenopathy Respiratory: No increased work of breathing. Cardiovascular: Regular rate, normal rhythm, normal heart sounds. Absent systolic murmur, diastolic murmur, rubs, gallops, clicks GIabdominal: No guarding or rigidity Extremities: Moves all extremities Neurological: Alert and oriented 3, cranial nerves II through XII intact, no unilateral lateralizing weakness, no seizure activity noted on physical exam, no pronator drift and no nystagmus. Psychological: Mood and affect appropriate setting - Labs CBC & Chem 7: 08/10/18 05:41 08/10/18 05:41 Labs: Abnormal Lab Results - Last 24 Hours (Table) 08/09/18 08/09/18 08/10/18 Range/Units 16:27 20:42 05:41 RBC 3.54 L (4.30-5.90) m/uL Hgb 10.7 L (13.0-17.5) gm/dL Hct 32.7 L (39.0-53.0) % Plt Count 138 L (150-450) k/uL Lymphocytes # 0.8 L (1.0-4.8) k/uL Chloride (98-107) mmol/L BUN (9-20) mg/dL Creatinine (0.66-1.25) mg/dL Glucose (74-99) mg/dL POC Glucose (mg/dL) 160 H 143 H (75-99) mg/dL Total Protein (6.3-8.2) g/dL Albumin (3.5-5.0) g/dL TSH (0.465-4.680) mIU/L 08/10/18 08/10/18 08/10/18 Range/Units 05:41 05:41 05:41 RBC (4.30-5.90) m/uL Hgb (13.0-17.5) gm/dL Hct (39.0-53.0) % Plt Count (150-450) k/uL Lymphocytes # (1.0-4.8) k/uL Chloride 109 H (98-107) mmol/L BUN 76 H (9-20) mg/dL Creatinine 2.97 H (0.66-1.25) mg/dL Glucose 156 H (74-99) mg/dL POC Glucose (mg/dL) 157 H (75-99) mg/dL Total Protein 5.7 L (6.3-8.2) g/dL Albumin 3.0 L (3.5-5.0) g/dL TSH 0.383 L (0.465-4.680) mIU/L 08/10/18 Range/Units 11:43 RBC (4.30-5.90) m/uL Hgb (13.0-17.5) gm/dL Hct (39.0-53.0) % Plt Count (150-450) k/uL Lymphocytes # (1.0-4.8) k/uL Chloride (98-107) mmol/L BUN (9-20) mg/dL Creatinine (0.66-1.25) mg/dL Glucose (74-99) mg/dL POC Glucose (mg/dL) 116 H (75-99) mg/dL Total Protein (6.3-8.2) g/dL Albumin (3.5-5.0) g/dL TSH (0.465-4.680) mIU/L Assessment and Plan (1) Weakness Current Visit: Yes Status: Acute Code(s): R53.1 - WEAKNESS SNOMED Code(s) : 44352421 (2) Dysarthria Current Visit: Yes Status: Acute Code(s): R47.1 - DYSARTHRIA AND ANARTHRIA SNOMED Code(s): 8846027 Plan: 1. Weakness 2. Dysarthria Patient did present with weakness and dysarthria. Both have resolved and the patient is back to baseline. Patient did have INR abnormality upon arrival which is also been corrected to within therapeutic window. Patient denies any neurological deficits at this time. Patient can continue medication regimen as implemented and plan of care. Recommend patient follow up with primary care provider in the outpatient setting. Patient follow-up with neurology within 14 days of discharge for follow-up related to dysarthria. Patient was advised to return to the ED if symptoms return or persist. Patient can be cleared for discharge from a neurological standpoint. I discussed the patients history, physical exam, diagnostic testing, lab work and imaging with Dr Garcia prior to implementing the plan above. He agrees with the plan as implemented prior to implementation.
--- NOTE | 2018-08-10 16:26 | PN ---
PROGRESS NOTE The patient is seen for followup for acute kidney injury. The this morning he is sitting up in bed. He is comfortable. He states he is feeling much better and wants to go home. PHYSICAL EXAMINATION: Blood pressure this morning was 143/69, heart rate 82 per minute. Patient is afebrile. Examination of the heart S1, S2. Examination of the lungs bilateral breath sounds are heard. Decreased breath sounds at the bases. The patient is currently maintained on IV fluids. He has had good urine output. On examination today, abdomen is soft, nontender. Exam of lower extremities shows no significant edema. GROUP DIRECTOR exam is grossly intact. LABS: Sodium 143, potassium 4.5, chloride 109, BUN 76, serum creatinine 2.97, hemoglobin 10.7 g/dL. ASSESSMENT: 1. Acute kidney injury, appears to be prerenal, currently improved. Patient is maintained on IV fluids. He is encouraged to maintain good oral intake and I will decrease his IV fluids. 2. Chronic kidney disease with baseline creatinine about 2-2.5 mg/dL secondary to nephrosclerosis. 3. Paroxysmal atrial fibrillation maintained on Coumadin. 4. Hypertension, controlled. 5. 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 6. 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 7. Benign prostatic hypertrophy, currently on Flomax. 8. Cardiomyopathy, ejection fraction 25-30 percent. PLAN: Continue current dose of Coreg. Maintain good oral intake. Decrease IV fluids. Repeat labs in a.m. The patient is stable for discharge from Nephrology standpoint. He is advised to follow up as outpatient. MMODL / IJN: [id number] /
[2018-08-10 16:30] LABS: Glucose,Whole Blood 112 mg/dL (75-99)
[2018-08-10] MEDS: WARFARIN 3 MG TAB PO SCH (17:53)
[2018-08-10 19:11] LABS: Iron Saturation 10.09 (15.00-50.00)
[2018-08-10] MEDS: TAMSULOSIN 0.4 MG CAP.ER.24H PO SCH (20:01)
[2018-08-10] MEDS: MONTELUKAST 10 MG TAB PO SCH (20:04)
[2018-08-10 20:38] LABS: Glucose,Whole Blood 194 mg/dL (75-99)
--- NOTE | 2018-08-10 23:47 | PN ---
PROGRESS NOTE SUBJECTIVE: This is a 77-year-old white male who is feeling better. He is up ambulating a little bit. His strength is greatly improving. Hemoglobin is 10.7, BUN 76. Creatinine is 2.97, down from the mid 3s. Sugars are mid 100s. Iron saturation level is at 10. Thyroid is off. TSH 0.3, albumin 3.0. He was seen by Dr. Garcai today. He is completely back to baseline, he says. His weakness improved. No dysarthria. No lateralizing weakness. Carotid artery sounds are negative. Neurologic negative. Lungs are clear. CARDIOVASCULAR: S1, S2. GI: Distended. Obesity. MUSCULOSKELETAL: Joint swelling, greatest in the knees. Labs are reviewed. BUN 76, creatinine 2.97, hemoglobin 10.7. ASSESSMENT: 1. Generalized weakness. 2. Dysarthria. 3. Dehydration. 4. Worsening renal failure. 5. Systolic congestive heart failure, which is being stabilized by communication specialist prior to being discharged. MMODL / IJN: [id number] /
[2018-08-11 06:41] LABS: Glucose,Whole Blood 41 mg/dL (75-99)
[2018-08-11 06:44] LABS: Glucose,Whole Blood 39 mg/dL (75-99)
[2018-08-11] MEDS: INSULIN ASPART 100 UNIT/ML 1 ML 10 ML VIAL SQ SCH ×4 (06:45→21:27)
[2018-08-11 06:49] LABS: Basophils % (A) 0 %; Eosinophils # (A) 0.4 k/uL (0-0.7); Eosinophils % (A) 5 %; HCT 35.3 % (39.0-53.0); HGB 11.6 gm/dL (13.0-17.5); Lymphocytes # (A) 0.9 k/uL (1.0-4.8); Lymphocytes % (A) 12 %; MCH 30.1 pg (25.0-35.0); MCHC 32.8 g/dL (31.0-37.0); MCV 91.6 fL (80.0-100.0); Mean Platelet Volume 7.3; Monocytes # (A) 0.5 k/uL (0-1.0); Monocytes % (A) 7 %; Neutrophils # (A) 5.3 k/uL (1.3-7.7); Neutrophils % (A) 73 %; Platelet Count 183 k/uL (150-450); RBC 3.85 m/uL (4.30-5.90); RDW 14.5 % (11.5-15.5); WBC 7.3 k/uL (3.8-10.6)
[2018-08-11] MEDS: FERROUS SULFATE 325 MG TAB PO SCH ×2 (06:50→17:31)
[2018-08-11 07:06] LABS: Albumin 3.2 g/dL (3.5-5.0); Calcium 8.8 mg/dL (8.4-10.2); Total Bilirubin 0.4 mg/dL (0.2-1.3); Total Protein 6.1 g/dL (6.3-8.2)
[2018-08-11 07:34] LABS: Glucose,Whole Blood 66 mg/dL (75-99)
[2018-08-11 08:14] LABS: Glucose,Whole Blood 174 mg/dL (75-99)
[2018-08-11] MEDS: CARVEDILOL 12.5 MG TAB PO SCH ×2 (08:29→21:02)
[2018-08-11] MEDS: ISOSORBIDE MONONITRATE ER 15 MG TAB PO SCH (08:29)
[2018-08-11] MEDS: CARBIDOPA-LEVODOPA 10-100 MG 1 EACH TAB PO SCH ×2 (08:29→21:27)
[2018-08-11] MEDS: FAMOTIDINE 20 MG TAB PO SCH (08:29)
[2018-08-11] MEDS: GABAPENTIN 300 MG CAP PO SCH ×3 (08:29→21:02)
[2018-08-11] MEDS: SENNOSIDES 8.6 MG TAB PO SCH ×3 (08:29→21:16)
--- NOTE | 2018-08-11 10:00 | PN ---
PROGRESS NOTE Patient is seen for followup for acute kidney injury which was mainly prerenal. Renal function has improved with creatinine down to 2.4 from 3.2 mg/dL. Patient does have underlying chronic kidney disease and NKF stage IV with baseline creatinine about 2-2.7 mg/dL. Currently, the patient is maintained on a small dose of IV fluids. He has had good oral intake. He is most likely going home today. EXAMINATION: This morning, blood pressure 141/70, heart rate 76 per minute. Patient is afebrile. Examination of the heart S1, S2. Examination of lungs bilateral breath sounds are heard. Decreased breath sounds at bases. Abdomen is soft, nontender. Examination of lower extremities shows edema 1+ bilaterally. Chronic skin changes are noted. D[employer] exam is grossly intact. LAB: Show sodium 143, potassium 4.0, BUN 58, serum creatinine 2.4. Glucose was low at 36 this morning. Hemoglobin 11.6 g/dL. ASSESSMENT: 1. Acute kidney injury, mainly prerenal, currently improved. 2. Chronic kidney disease stage 4. Baseline creatinine 2-2.5 mg/dL secondary to nephrosclerosis. 3. Paroxysmal atrial fibrillation maintained on anticoagulation from Coumadin. 4. CKD mineral bone disorder, currently on calcitriol. 5. Cardiomyopathy, ejection fraction 25-30 percent. 6. Benign prostatic hypertrophy, maintained on Flomax. PLAN: Patient can be discharged today. He will resume his home dose of diuretics. Patient was on 80 mg p.o. b.i.d. of Lasix. He needs to monitor his blood pressure at home and we will see him back for followup as outpatient in about 1-2 weeks. MMODL / IJN: [id number] /
[2018-08-11 11:33] LABS: Glucose,Whole Blood 142 mg/dL (75-99)
[2018-08-11] MEDS ORDERED: MECLIZINE 12.5 MG TAB PO PRN (13:34)
[2018-08-11 17:22] LABS: Glucose,Whole Blood 194 mg/dL (75-99)
[2018-08-11] MEDS: WARFARIN 3 MG TAB PO SCH (17:31)
[2018-08-11] MEDS: TAMSULOSIN 0.4 MG CAP.ER.24H PO SCH (21:01)
[2018-08-11] MEDS: MONTELUKAST 10 MG TAB PO SCH (21:01)
[2018-08-11] MEDS: CALCITRIOL 0.25 MCG CAP PO SCH (21:11)
[2018-08-11] MEDS: INSULIN DETEMIR 100 UNIT/ML 10 ML VIAL SQ SCH (21:27)
[2018-08-11 21:43] LABS: Glucose,Whole Blood 156 mg/dL (75-99)
[2018-08-12] MEDS: INSULIN ASPART 100 UNIT/ML 1 ML 10 ML VIAL SQ SCH ×2 (05:55→12:42)
[2018-08-12 05:57] LABS: Glucose,Whole Blood 118 mg/dL (75-99)
[2018-08-12 06:08] LABS: Glucose,Whole Blood 104 mg/dL (75-99)
[2018-08-12 06:49] LABS: Basophils % (A) 0 %; Eosinophils # (A) 0.3 k/uL (0-0.7); Eosinophils % (A) 5 %; HCT 30.6 % (39.0-53.0); Lymphocytes # (A) 0.9 k/uL (1.0-4.8); Lymphocytes % (A) 16 %; MCH 29.7 pg (25.0-35.0); MCHC 32.7 g/dL (31.0-37.0); MCV 90.7 fL (80.0-100.0); Mean Platelet Volume 7.2; Monocytes # (A) 0.4 k/uL (0-1.0); Monocytes % (A) 8 %; Neutrophils % (A) 70 %; Platelet Count 153 k/uL (150-450); RBC 3.38 m/uL (4.30-5.90); RDW 14.5 % (11.5-15.5); WBC 5.7 k/uL (3.8-10.6)
[2018-08-12] MEDS: FERROUS SULFATE 325 MG TAB PO SCH (06:51)
[2018-08-12] MEDS: SODIUM CHLORIDE 0.9% 1,000 ML IV SCH (06:52)
[2018-08-12 06:59] LABS: Albumin 2.8 g/dL (3.5-5.0); Calcium 8.3 mg/dL (8.4-10.2); Potassium 4.3 mmol/L (3.5-5.1); Total Bilirubin 0.4 mg/dL (0.2-1.3); Total Protein 5.4 g/dL (6.3-8.2)
[2018-08-12] MEDS: GABAPENTIN 300 MG CAP PO SCH (07:58)
[2018-08-12] MEDS: FAMOTIDINE 20 MG TAB PO SCH (07:58)
[2018-08-12] MEDS: CARBIDOPA-LEVODOPA 10-100 MG 1 EACH TAB PO SCH (07:58)
[2018-08-12] MEDS: ISOSORBIDE MONONITRATE ER 15 MG TAB PO SCH (07:58)
[2018-08-12] MEDS: CARVEDILOL 12.5 MG TAB PO SCH (07:58)
[2018-08-12] MEDS: SENNOSIDES 8.6 MG TAB PO SCH (07:58)
[2018-08-12 08:07] VITALS: BP 157/73; PULSE 86; RESP 20; TEMP 97.6
--- NOTE | 2018-08-12 08:40 | PN ---
PROGRESS NOTE SUBJECTIVE: This is a 77-year-old white male who was planning on being discharged today, but he became dizzy and lightheaded with ambulating. His insulin was cut down, his long- acting insulin, from from 30 units down to 20 units. He has Stage 4 kidney disease. Baseline creatinine is 2-2.7. Blood pressure 140s over 70s, heart rate 70s, afebrile. Cardiac: S1-S2. Lungs: Clear. GI: Soft. Hematology: Negative Homans. Creatinine is 2.4, BUN is 58, potassium 4, sodium 143. ASSESSMENT: 1. Prerenal kidney injury due to dehydration, baseline creatinine stage IV. 2. Paroxysmal atrial fibrillation. 3. Chronic kidney disease. 4. Mineral bone disorder. 5. Cardiomyopathy. Patient possibly can be discharged on 80 mg p.o. b.i.d. of Lasix depending on his dizziness, if it improves, will discuss with the nurse later. MMODL / IJN: [id number] /
[2018-08-12] MEDS ORDERED: FUROSEMIDE 40 MG TAB PO SCH (09:00)
[2018-08-12] MEDS: INSULIN DETEMIR 100 UNIT/ML 10 ML VIAL SQ SCH (10:08)
[2018-08-12 11:19] LABS: Glucose,Whole Blood 140 mg/dL (75-99)
[2018-08-12 12:19] LABS: INR 1.1 (<1.2); Prothrombin Time 10.8 sec (9.0-12.0)
--- NOTE | 2018-08-12 13:07 | PN ---
PROGRESS NOTE Patient is seen for followup for acute kidney injury. The patient is currently comfortable, awake. He is not in any acute distress. He denies any significant complaints. PHYSICAL EXAMINATION: On examination today, blood pressure is 157/73, heart rate 86 per minute. Patient is afebrile. EXAMINATION OF THE HEART: S1, S2. EXAMINATION OF THE LUNGS: Bilateral breath sounds are heard. Abdomen is soft, nontender. Examination of lower extremities shows edema 1+ mainly in the left lower extremity. [employer] exam is grossly intact. LABS: Labs show sodium 142, potassium 4.3, chloride 114, BUN 49, serum creatinine 2.23. Hemoglobin 10.0 g/dL. ASSESSMENT: 1. Acute kidney injury, mainly prerenal, status post IV fluids, currently improved. Serum creatinine is down to 2.2 from 3.2 on initial admission. 2. Left lower extremity cellulitis, which appears to be very mild. 3. Lower extremity edema. I will resume diuretics at a lower dose from what the patient was taking at home. 4. Chronic kidney disease stage IV secondary to nephrosclerosis with baseline creatinine around 1.7 mg/dL. 5. Anemia of chronic disease. PLAN: Resume low-dose loop diuretics. Repeat labs in a.m. and continue to avoid nephrotoxic agents. Continue to encourage increase oral intake. MMODL / IJN: [id number] /
== END 2018-08-12 13:53 | disposition home or self-care (01) ==
LOC: EC 11:59 → 3SCARD 16:50
PROVIDERS: ADMIT Family Medicine; ATTEND Family Medicine
DX: N17.9 Acute kidney failure, unspecified (principal); R47.81 Slurred speech; K21.9 Gastro-esophageal reflux disease without esophagitis; N18.4 Chronic kidney disease, stage 4 (severe); E83.89 Other disorders of mineral metabolism; N40.0 Benign prostatic hyperplasia without lower urinary tract symptoms; I42.9 Cardiomyopathy, unspecified; E11.42 Type 2 diabetes mellitus with diabetic polyneuropathy; D63.1 Anemia in chronic kidney disease; E11.22 Type 2 diabetes mellitus with diabetic chronic kidney disease; E11.51 Type 2 diabetes mellitus with diabetic peripheral angiopathy without gangrene; I27.20 Pulmonary hypertension, unspecified; Z79.899 Other long term (current) drug therapy; Z79.4 Long term (current) use of insulin; Z79.01 Long term (current) use of anticoagulants; W19.XXXA Unspecified fall, initial encounter; Z95.0 Presence of cardiac pacemaker; Y92.009 Unspecified place in unspecified non-institutional (private) residence as the place of occurrence of the external cause; I48.0 Paroxysmal atrial fibrillation; R79.1 Abnormal coagulation profile; I50.22 Chronic systolic (congestive) heart failure; I13.0 Hypertensive heart and chronic kidney disease with heart failure and stage 1 through stage 4 chronic kidney disease, or unspecified chronic kidney disease; E66.9 Obesity, unspecified; Z68.31 Body mass index [BMI] 31.0-31.9, adult; J44.9 Chronic obstructive pulmonary disease, unspecified; E78.5 Hyperlipidemia, unspecified; E86.0 Dehydration; L03.116 Cellulitis of left lower limb; M19.90 Unspecified osteoarthritis, unspecified site; Z87.11 Personal history of peptic ulcer disease; Z87.440 Personal history of urinary (tract) infections; Z96.651 Presence of right artificial knee joint; Z98.42 Cataract extraction status, left eye; Z98.41 Cataract extraction status, right eye; Z96.1 Presence of intraocular lens; Z87.891 Personal history of nicotine dependence; Z83.3 Family history of diabetes mellitus
CPT/HCPCS: 96360; 96361 ×2; 99285; 36415; 94760; 93005; 97162; 97166; 86900; 86901; 84439; 83880; 80053 ×5; 82150; 82550; 82553; 83540; 83550; 83690; 83735; 84443; 84484; 85025 ×4; 85610 ×4; 85730; 86850; 81001; 80306; 83036; 72170; 73590; 71045; 93880; 70450; G0378 ×5; C8929; G0480; Q9950; 80320; 93306

== ENCOUNTER → 2018-09-05 | Outpatient (CLI) | payer MEDICARE, BC ==
--- NOTE | 2018-09-05 13:55 | XR ---
EXAMINATION TYPE: XR foot complete LT DATE OF EXAM: 09/05/2018 COMPARISON: 11/12/2017 HISTORY: 77-year-old male acquired deformity of left big toe, nonhealing wound. TECHNIQUE: 3 views FINDINGS: Osteopenia with extensive vascular calcifications. Degenerative change at the first MTP and first IP joints with hammer toes. No significant progression in the 2 areas of questioned focal osteolysis inv olving the first proximal phalanx. Tiny type I accessory navicular. Moderate-sized plantar calcaneal spur. Nonspecific soft tissue swelling forefoot and midfoot. IMPRESSION: Stable appearance without progression in the 2 previously described areas of focal osteolysis involvi ng the first proximal phalanx.
== END | disposition home or self-care (01) ==
LOC: RADXRMAIN 11:55
PROVIDERS: ATTEND Internal Medicine Infectious Disease
DX: M20.62 Acquired deformities of toe(s), unspecified, left foot (principal)

== ENCOUNTER → 2018-10-24 | Outpatient (CLI) | payer MEDICARE, BC ==
[2018-10-24 15:31] LABS: Basophils % (A) 0 %; Eosinophils # (A) 0.2 k/uL (0-0.7); Eosinophils % (A) 3 %; HCT 38.5 % (39.0-53.0); HGB 12.4 gm/dL (13.0-17.5); Lymphocytes # (A) 1.2 k/uL (1.0-4.8); Lymphocytes % (A) 17 %; MCH 29.2 pg (25.0-35.0); MCHC 32.2 g/dL (31.0-37.0); MCV 90.6 fL (80.0-100.0); Monocytes # (A) 0.4 k/uL (0-1.0); Monocytes % (A) 6 %; Neutrophils % (A) 72 %; Platelet Count 145 k/uL (150-450); RBC 4.25 m/uL (4.30-5.90); RDW 14.2 % (11.5-15.5)
[2018-10-24 15:48] LABS: Appearance,Urine Clear (Clear); Bilirubin,Urine Negative (Negative); Blood,Urine Negative (Negative); Color,Urine Light Yellow; Glucose,Urine (UA) Negative (Negative); Ketones,Urine Negative (Negative); Leukocyte Esterase,Urine Negative (Negative); Nitrite,Urine Negative (Negative); Protein,Urine Trace (Negative); Specific Gravity,Urine 1.008 (1.001-1.035); Urobilinogen,Urine <2.0 mg/dL (<2.0)
[2018-10-24 19:54] LABS: Creatinine,Urine Random 55.1 mg/dL
[2018-10-24 20:32] LABS: Total Protein,Urine Random 25.1 mg/dL (0.0-13.5)
[2018-10-24 21:41] LABS: Iron Saturation 16.15 (15.00-50.00); Parathyroid Hormone Intact 155.9 pg/mL (14.0-72.0)
[2018-10-24 21:58] LABS: Anion Gap 9.5 mmol/L (4.00-12.00); Calcium 8.6 mg/dL (8.7-10.3); Carbon Dioxide 25.5 mmol/L (21.6-31.8); Magnesium 2.2 mg/dL (1.5-2.4); Phosphorus 4.8 mg/dL (2.4-5.1); Potassium 5.4 mmol/L (3.5-5.5); Uric Acid 6.6 mg/dL (3.7-8.7)
== END | disposition home or self-care (01) ==
LOC: LABWHC1 13:42
PROVIDERS: ATTEND Internal Medicine Nephrology
DX: E55.9 Vitamin D deficiency, unspecified (principal); N25.81 Secondary hyperparathyroidism of renal origin; M10.9 Gout, unspecified; R80.9 Proteinuria, unspecified; N18.4 Chronic kidney disease, stage 4 (severe)
CPT/HCPCS: 36415; 80048; 81003; 82040; 82306; 82570; 82728; 83540; 83550; 83735; 83970; 84100; 84156; 84550; 85025

== ENCOUNTER → 2018-11-04 | Outpatient (CLI) | payer MEDICARE, BC ==
--- NOTE | 2018-11-04 15:06 | XR ---
EXAMINATION TYPE: XR toes LT DATE OF EXAM: 11/04/2018 COMPARISON: NONE HISTORY: Left great toe infection and pain. TECHNIQUE: 3 views of the left great toe were obtained. FINDINGS: There is flexion deformity of the distal interphalangeal joint of the first and second digi ts as well as the proximal interphalangeal joint of the second digit. Small vessel atherosclerosis is noted. There is soft tissue swelling surrounding the distal first phalanx. Erosions are seen of the distal a spect of the first proximal phalanx with surrounding periosteal reaction as well as the medial and la teral distal first phalanx tuft. Degenerative changes of the distal and proximal interphalangeal join ts of the second digit and first digit as well as the metatarsal phalangeal joint are seen as osseous proliferative change and opposing surface sclerosis. 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
== END | disposition home or self-care (01) ==
LOC: RADXRMAIN 14:09
PROVIDERS: ATTEND Internal Medicine Infectious Disease
DX: S91.102A Unspecified open wound of left great toe without damage to nail, initial encounter (principal)

== ENCOUNTER 2020-01-29 14:18 | Inpatient (IN) | payer MEDICARE, BC ==
--- NOTE | 2020-01-29 14:48 | ED ---
General Adult HPI - General Source: patient, EMS, RN notes reviewed, old records reviewed Mode of arrival: EMS Limitations: no limitations <Terrell Larios - Last Filed: 01/29/20 14:54> <Liban Regalado - Last Filed: 01/29/20 16:46> - General Chief complaint: Shortness of Breath Stated complaint: Diff Breathing Time Seen by Provider: 01/29/20 14:25 - History of Present Illness Initial comments: This is an 79-year-old male who presents emergency department with past medical history significant for renal failure diabetes hypertension COPD and congestive heart failure. Patient states he's been having difficulty breathing which is worsening with exertion over the last week. Patient states had no chest pain or palpitations with it. Patient states he is definitely more short of breath. states his legs are also getting more edematous. states there's 2 toes on the left foot that are also much more red than they normally are that is a second and fourth toe and the nail on the fourth toe actually came off today. states he hasn't had a cough or fever. Patient does not complain of any headache he has no numbness or weakness at this focal. (Terrell Larios) - Related Data Home Medications Medication Instructions Recorded Confirmed Carvedilol 25 mg PO BID@0900,2200 11/12/15 08/08/18 Famotidine 20 mg PO DAILY@0900 11/12/15 08/08/18 Furosemide [Lasix] 80 mg PO BID@0900,1600 11/12/15 08/08/18 Gabapentin [Neurontin] 300 mg PO TID@0900,1600,2200 11/12/15 08/08/18 Isosorbide Mononitrate [Isosorbide 15 mg PO DAILY@0900 11/12/15 08/08/18 Mononitrate ER] Montelukast [Singulair] 10 mg PO HS 11/12/15 08/08/18 Calcitriol 0.5 mcg PO MOTH 08/10/17 08/08/18 INSULIN LISPRO (humaLOG) [humaLOG] See Protocol SQ AC-TID 09/22/17 08/08/18 Carbidopa-Levodopa 10-100 mg 1 tab PO BID 08/08/18 08/08/18 [Sinemet 10-100 mg] Ferrous Sulfate [Iron (65 MG 325 mg PO BID 08/08/18 08/08/18 Elemental)] Insulin Glargine,Hum.rec.anlog 20 unit SQ Q12H 08/08/18 08/11/18 [Basaglkarl [place] U-100] Sennosides [Senna] 8.6 mg PO Q12H 08/08/18 08/08/18 Tamsulosin [Flomax] 0.4 mg PO HS 08/08/18 08/08/18 oxyCODONE-APAP 10-325MG [Percocet 1 tab PO Q6H PRN 08/08/18 08/08/18 10-325 mg] Previous Rx's Medication Instructions Recorded Warfarin [Coumadin] 3 mg PO DAILY@1800 tab 08/10/18 Allergies Allergy/AdvReac Type Severity Reaction Status Date / Time midodrine Allergy Rash/Hives Verified 01/29/20 14:26 sodium bicarbonate Allergy Itching Verified 01/29/20 14:27 Review of Systems ROS Other: All systems not noted in ROS Statement are negative. <Terrell Larios - Last Filed: 01/29/20 14:54> ROS Other: All systems not noted in ROS Statement are negative. <Liban Regalado - Last Filed: 01/29/20 16:46> ROS Statement: Those systems with pertinent positive or pertinent negative responses have been documented in the HPI. Past Medical History Past Medical History: Atrial Fibrillation, Heart Failure, Diabetes Mellitus, GERD/Reflux, Hyperlipidemia, Hypertension, Osteoarthritis (OA), Renal Disease Additional Past Medical History / Comment(s): Cardiomyopathy, pulmonary hypertension, pt denies COPD as previously charted, pt no longer has hyperlipide juan luis-taken off medication, IDDM type II, bilateral feet peripheral neuropathy, recent past L great toe ulcer/osteomylitis-gram negative skin tammie, CKD stage IV-has occluded fistula L arm (never recieved dialysis), UTI with sepsis, chronic back/neck pain,. PUD, Left great toe osteomyelitis - 2017 History of Any Multi-Drug Resistant Organisms: None Reported Past Surgical History: Adenoidectomy, Orthopedic Surgery, Pacemaker, Tonsillectomy Additional Past Surgical History / Comment(s): lumbar facet blocks, lt breast cyst removed as child, bilateral cataract removal with lens implants,. Fistula left upper arm to use for dialysis-never used it-pt's stated "it's been occluded for 5 years", colonoscopy, picc line insertion/since removed. Total right knee replacement 02/2018 Past Anesthesia/Blood Transfusion Reactions: No Reported Reaction Type of Cardiac Device: Permanent Pacemaker Device Placement Date:: 2012 Past Psychological History: No Psychological Hx Reported Smoking Status: Former smoker Past Alcohol Use History: Rare Past Drug Use History: None Reported - Past Family History Mother Family Medical History: Diabetes Mellitus Additional Family Medical History / Comment(s): type 2 in her 70's Father Family Medical History: Diabetes Mellitus Additional Family Medical History / Comment(s): dm type 2 in his 70's <Terrell Larios - Last Filed: 01/29/20 14:54> General Exam Limitations: no limitations <Terrell Larios - Last Filed: 01/29/20 14:54> - General Exam Comments Initial Comments: GENERAL: Patient is well-developed and well-nourished. Patient is nontoxic and well- hydrated and is in mild distress. ENT: Neck is soft and supple. No significant lymphadenopathy is noted. Oropharynx is clear. Moist mucous membranes. Neck has full range of motion without eliciting any pain. EYES: The sclera were anicteric and conjunctiva were pink and moist. Extraocular movements were intact and pupils were equal round and reactive to light. Eyeli ds were unremarkable. PULMONARY: Unlabored respirations. Good breath sounds bilaterally. No audible rales rhonchi or wheezing was noted. CARDIOVASCULAR: There is a regular rate and rhythm without any murmurs gallops or rubs. ABDOMEN: Soft and nontender with normal bowel sounds. SKIN: Skin is clear with no lesions or rashes and otherwise unremarkable. NEUROLOGIC: Patient is alert and oriented x3. Cranial nerves II through XII are grossly intact. Motor and sensory are also intact. Normal speech, volume and content. Symmetrical smile. MUSCULOSKELETAL: Normal extremities with adequate strength and full range of motion. 2+ edema bilaterally in the second and fourth 20 left foot are read the nail is missing of the fourth toe. LYMPHATICS: No significant lymphadenopathy is noted PSYCHIATRIC: Normal psychiatric evaluation. (Terrell Larios) Course <Liban Regalado - Last Filed: 01/29/20 16:46> Vital Signs 01/29/20 01/29/20 14:21 14:28 Temperature 97.7 F Pulse Rate 79 Respiratory 27 H 28 H Rate Blood Pressure 121/64 O2 Sat by Pulse 97 Oximetry - Reevaluation(s) Reevaluation #1: 01/29/20 16:42 I did discuss the findings the patient and his . Patient didn't endorsed to me by Dr. Larios at her shift change pending lab work. Patient does have evidence on x-ray of CHF or so on the right than the left also BNP is over 35,000 he did demonstrate exertional dyspnea as well as peripheral edema with weeping. He will be admitted. The case is discussed with Dr. Bynum. Of note the patient was scheduled to have a new pacemaker placed by Dr. Cadena later this month. He'll be consulted (Liban Regalado) Reevaluation #2: 01/29/20 16:45 I did discuss the case with Dr. Bynum. Patient will be admitted renal service will be consulted as well as Dr. Cadena (Liban Regalado) Medical Decision Making <Terrell Larios - Last Filed: 01/29/20 14:54> - Lab Data Result diagrams: 01/29/20 14:50 01/29/20 14:50 <Liban Regalado - Last Filed: 01/29/20 16:46> - Medical Decision Making Dr. Regalado be taking over the care of this patient at 3:00 EKG shows a paced rhythm at 83 bpm WV interval 212 QRS is 170 QT interval is 454 QTC is 5:30. (Terrell Larios) - Lab Data Lab Results 01/29/20 01/29/20 01/29/20 Range/Units 14:50 14:50 14:50 WBC 7.1 (3.8-10.6) k/uL RBC 3.30 L (4.30-5.90) m/uL Hgb 10.0 L (13.0-17.5) gm/dL Hct 31.2 L (39.0-53.0) % MCV 94.6 (80.0-100.0) fL MCH 30.2 (25.0-35.0) pg MCHC 31.9 (31.0-37.0) g/dL RDW 15.8 H (11.5-15.5) % Plt Count 117 L (150-450) k/uL Neutrophils % 78 % Lymphocytes % 9 % Monocytes % 6 % Eosinophils % 5 % Basophils % 0 % Neutrophils # 5.5 (1.3-7.7) k/uL Lymphocytes # 0.6 L (1.0-4.8) k/uL Monocytes # 0.4 (0-1.0) k/uL Eosinophils # 0.4 (0-0.7) k/uL Basophils # 0.0 (0-0.2) k/uL Hypochromasia Marked PT 61.2 H (9.0-12.0) sec INR 6.0 H* (<1.2) APTT 48.1 H (22.0-30.0) sec D-Dimer (<0.60) mg/L FEU Sodium 138 (137-145) mmol/L Potassium 4.7 (3.5-5.1) mmol/L Chloride 106 (98-107) mmol/L Carbon Dioxide 22 (22-30) mmol/L Anion Gap 10 mmol/L BUN 58 H (9-20) mg/dL Creatinine 2.77 H (0.66-1.25) mg/dL Est GFR (CKD-EPI)AfAm 24 (>60 ml/min/1.73 sqM) Est GFR (CKD-EPI)NonAf 21 (>60 ml/min/1.73 sqM) Glucose 161 H (74-99) mg/dL Plasma Lactic Acid Noel (0.7-2.0) mmol/L Calcium 8.5 (8.4-10.2) mg/dL Magnesium 1.9 (1.6-2.3) mg/dL Total Bilirubin 0.4 (0.2-1.3) mg/dL AST 28 (17-59) U/L ALT 12 (4-49) U/L Alkaline Phosphatase 120 (38-126) U/L Troponin I (0.000-0.034) ng/mL NT-Pro-B Natriuret Pep pg/mL Total Protein 6.0 L (6.3-8.2) g/dL Albumin 3.2 L (3.5-5.0) g/dL 01/29/20 01/29/20 01/29/20 Range/Units 14:50 14:50 14:50 WBC (3.8-10.6) k/uL RBC (4.30-5.90) m/uL Hgb (13.0-17.5) gm/dL Hct (39.0-53.0) % MCV (80.0-100.0) fL MCH (25.0-35.0) pg MCHC (31.0-37.0) g/dL RDW (11.5-15.5) % Plt Count (150-450) k/uL Neutrophils % % Lymphocytes % % Monocytes % % Eosinophils % % Basophils % % Neutrophils # (1.3-7.7) k/uL Lymphocytes # (1.0-4.8) k/uL Monocytes # (0-1.0) k/uL Eosinophils # (0-0.7) k/uL Basophils # (0-0.2) k/uL Hypochromasia PT (9.0-12.0) sec INR (<1.2) APTT (22.0-30.0) sec D-Dimer (<0.60) mg/L FEU Sodium (137-145) mmol/L Potassium (3.5-5.1) mmol/L Chloride (98-107) mmol/L Carbon Dioxide (22-30) mmol/L Anion Gap mmol/L BUN (9-20) mg/dL Creatinine (0.66-1.25) mg/dL Est GFR (CKD-EPI)AfAm (>60 ml/min/1.73 sqM) Est GFR (CKD-EPI)NonAf (>60 ml/min/1.73 sqM) Glucose (74-99) mg/dL Plasma Lactic Acid Noel 1.5 (0.7-2.0) mmol/L Calcium (8.4-10.2) mg/dL Magnesium (1.6-2.3) mg/dL Total Bilirubin (0.2-1.3) mg/dL AST (17-59) U/L ALT (4-49) U/L Alkaline Phosphatase (38-126) U/L Troponin I <0.012 (0.000-0.034) ng/mL NT-Pro-B Natriuret Pep 32459 pg/mL Total Protein (6.3-8.2) g/dL Albumin (3.5-5.0) g/dL 01/29/20 Range/Units 14:50 WBC (3.8-10.6) k/uL RBC (4.30-5.90) m/uL Hgb (13.0-17.5) gm/dL Hct (39.0-53.0) % MCV (80.0-100.0) fL MCH (25.0-35.0) pg MCHC (31.0-37.0) g/dL RDW (11.5-15.5) % Plt Count (150-450) k/uL Neutrophils % % Lymphocytes % % Monocytes % % Eosinophils % % Basophils % % Neutrophils # (1.3-7.7) k/uL Lymphocytes # (1.0-4.8) k/uL Monocytes # (0-1.0) k/uL Eosinophils # (0-0.7) k/uL Basophils # (0-0.2) k/uL Hypochromasia PT (9.0-12.0) sec INR (<1.2) APTT (22.0-30.0) sec D-Dimer 0.95 H (<0.60) mg/L FEU Sodium (137-145) mmol/L Potassium (3.5-5.1) mmol/L Chloride (98-107) mmol/L Carbon Dioxide (22-30) mmol/L Anion Gap mmol/L BUN (9-20) mg/dL Creatinine (0.66-1.25) mg/dL Est GFR (CKD-EPI)AfAm (>60 ml/min/1.73 sqM) Est GFR (CKD-EPI)NonAf (>60 ml/min/1.73 sqM) Glucose (74-99) mg/dL Plasma Lactic Acid Noel (0.7-2.0) mmol/L Calcium (8.4-10.2) mg/dL Magnesium (1.6-2.3) mg/dL Total Bilirubin (0.2-1.3) mg/dL AST (17-59) U/L ALT (4-49) U/L Alkaline Phosphatase (38-126) U/L Troponin I (0.000-0.034) ng/mL NT-Pro-B Natriuret Pep pg/mL Total Protein (6.3-8.2) g/dL Albumin (3.5-5.0) g/dL Critical Care Time Critical Care Time: Yes <Liban Regalado - Last Filed: 01/29/20 16:46> Disposition <Terrell Larios - Last Filed: 01/29/20 14:54> <Liban Regalado - Last Filed: 01/29/20 16:46> Clinical Impression: Congestive heart failure, Peripheral edema, Pressure sore Disposition: ADMITTED IP TO THIS [facility] Condition: Fair Referrals: Adán Bynum MD [Primary Care Provider] - 1-2 days
[2020-01-29 15:16] LABS: Basophils % (A) 0 %; Eosinophils # (A) 0.4 k/uL (0-0.7); Eosinophils % (A) 5 %; HCT 31.2 % (39.0-53.0); Hypochromasia Marked; Lymphocytes # (A) 0.6 k/uL (1.0-4.8); Lymphocytes % (A) 9 %; MCH 30.2 pg (25.0-35.0); MCHC 31.9 g/dL (31.0-37.0); MCV 94.6 fL (80.0-100.0); Mean Platelet Volume 8.5; Monocytes # (A) 0.4 k/uL (0-1.0); Monocytes % (A) 6 %; Neutrophils # (A) 5.5 k/uL (1.3-7.7); Neutrophils % (A) 78 %; Platelet Count 117 k/uL (150-450); RDW 15.8 % (11.5-15.5); WBC 7.1 k/uL (3.8-10.6)
--- NOTE | 2020-01-29 15:31 | XR ---
EXAMINATION TYPE: XR chest 2V DATE OF EXAM: 01/29/2020 COMPARISON: Prior chest x-ray 08/08/2018 HISTORY: Difficulty breathing, weakness and shortness of breath TECHNIQUE: Frontal and lateral views of the chest are obtained. FINDINGS: Bibasilar increased densities present, right hemidiaphragm is obscured. Generators present in left pectoral region with leads in the right atrium and ventricle. Heart remains enlarged. There is no evident pneumothorax. Aorta is dense. Interstitium is increased, this perihilar vascular indist inctness. IMPRESSION: Correlate for congestive heart failure, there are small basilar effusions.
[2020-01-29 15:33] LABS: Partial Thromboplastin Time 48.1 sec (22.0-30.0); Prothrombin Time 61.2 sec (9.0-12.0)
[2020-01-29 15:37] LABS: Albumin 3.2 g/dL (3.5-5.0); Calcium 8.5 mg/dL (8.4-10.2); Magnesium 1.9 mg/dL (1.6-2.3); Potassium 4.7 mmol/L (3.5-5.1); Total Bilirubin 0.4 mg/dL (0.2-1.3)
[2020-01-29] MEDS ORDERED: FUROSEMIDE 10 MG/ML 4 ML VIAL IV STA (16:32)
[2020-01-29] MEDS ORDERED: oxyCODONE-APAP 10-325MG 1 EACH TAB PO PRN (16:56)
[2020-01-29] MEDS ORDERED: SENNOSIDES 8.6 MG TAB PO SCH (18:00)
[2020-01-29] MEDS ORDERED: WARFARIN 3 MG TAB PO SCH (18:00)
[2020-01-29] MEDS: INSULIN ASPART (NovoLOG) 100 UNIT/ML VIAL SQ SCH ×2 (19:55→21:53)
[2020-01-29] MEDS: FUROSEMIDE 10 MG/ML 4 ML VIAL IV SCH (20:06)
[2020-01-29] MEDS: GABAPENTIN 300 MG CAP PO SCH (20:06)
[2020-01-29] MEDS: TAMSULOSIN 0.4 MG CAP.ER.24H PO SCH (20:07)
[2020-01-29] MEDS: CARVEDILOL 12.5 MG TAB PO SCH (20:07)
[2020-01-29] MEDS: FERROUS SULFATE 325 MG TAB PO SCH (20:07)
[2020-01-29] MEDS: MONTELUKAST 10 MG TAB PO SCH (20:07)
[2020-01-29] MEDS: CARBIDOPA-LEVODOPA 10-100 MG 1 EACH TAB PO SCH (20:07)
[2020-01-29 20:10] LABS: Glucose,Whole Blood 194 mg/dL (75-99)
[2020-01-29] MEDS ORDERED: FUROSEMIDE 40 MG TAB PO SCH (21:00)
[2020-01-29] MEDS ORDERED: ALPRAZolam 0.5 MG TAB PO PRN (21:18)
[2020-01-29] MEDS ORDERED: HALOPERIDOL LACTATE 5 MG/ML 1 ML VIAL IVP ONE (21:18)
[2020-01-29] MEDS: IPRATROPIUM-ALBUTEROL 3 ML NEB INHALATION SCH (21:29)
[2020-01-29] MEDS: INSULIN DETEMIR (LEVEMIR) 100 UNIT/ML SYR SQ SCH (21:55)
[2020-01-30 06:19] LABS: Glucose,Whole Blood 177 mg/dL (75-99)
[2020-01-30] MEDS: INSULIN ASPART (NovoLOG) 100 UNIT/ML VIAL SQ SCH ×4 (06:26→21:26)
[2020-01-30 06:42] LABS: HCT 29.9 % (39.0-53.0); Hypochromasia Marked; MCHC 30.3 g/dL (31.0-37.0); MCV 95.7 fL (80.0-100.0); Mean Platelet Volume 8.4; Platelet Count 110 k/uL (150-450); RBC 3.12 m/uL (4.30-5.90); RDW 15.6 % (11.5-15.5); WBC 9.9 k/uL (3.8-10.6)
[2020-01-30 07:02] LABS: Calcium 8.4 mg/dL (8.4-10.2); Potassium 4.5 mmol/L (3.5-5.1)
[2020-01-30] MEDS: IPRATROPIUM-ALBUTEROL 3 ML NEB INHALATION SCH ×4 (07:32→21:01)
[2020-01-30] MEDS: FUROSEMIDE 10 MG/ML 4 ML VIAL IV SCH (08:23)
[2020-01-30] MEDS: FAMOTIDINE 20 MG TAB PO SCH (08:23)
[2020-01-30] MEDS: INSULIN DETEMIR (LEVEMIR) 100 UNIT/ML SYR SQ SCH ×2 (08:23→21:26)
[2020-01-30] MEDS: FERROUS SULFATE 325 MG TAB PO SCH ×2 (08:23→20:16)
[2020-01-30] MEDS: CARVEDILOL 12.5 MG TAB PO SCH (08:23)
[2020-01-30] MEDS: GABAPENTIN 300 MG CAP PO SCH ×3 (08:23→20:16)
[2020-01-30] MEDS: CARBIDOPA-LEVODOPA 10-100 MG 1 EACH TAB PO SCH ×2 (08:24→21:26)
[2020-01-30] MEDS: SENNOSIDES 8.6 MG TAB PO SCH ×2 (08:24→20:16)
[2020-01-30] MEDS ORDERED: FUROSEMIDE 80 MG TAB PO SCH (09:00)
--- NOTE | 2020-01-30 09:55 | P.NPCON ---
History of Present Illness - Reason for Consult acute renal failure, chronic renal failure - History of Present Illness Reason for consultation: Acute kidney injury on chronic kidney disease History of present illness: Patient is a 79-year-old male seen in renal consultation for acute kidney injury on chronic kidney disease. Patient has chronic kidney disease stage IVwith baseline creatinine in the range of 2.2-2.4. It is up to 2.98 today. Patient presented with difficulty breathing which has been worsening over the last 1 week. She's also been getting more edematous. Additionally he was being weaned off of Lasix at home due to frequent urination. Currently has a Porter catheter. Urine output about 700 mL overnight. He is maintained on IV Lasix 40 mg twice daily. He does a long-standing history of diabetes mellitus. Denies use of nonsteroidals. No hematuria or dysuria. No fever or chills. Chest x-ray suggestive of CHF with small basilar effusions. Patient has history of CHF with ejection fraction of 25-30%. Vital signs are stable. General: The patient appeared well nourished and normally developed. HEENT: Head exam is unremarkable. Neck is without jugular venous distension. LUNGS: Breath sounds decreased. HEART: Rate and Rhythm are regular. ABDOMEN: Abdominal exam reveals normal bowel sounds. Non-tender. EXTREMITITES: 2+ edema. Past Medical History Past Medical History: Atrial Fibrillation, Heart Failure, Diabetes Mellitus, GERD/Reflux, Hyperlipidemia, Hypertension, Osteoarthritis (OA), Renal Disease Additional Past Medical History / Comment(s): Cardiomyopathy, pulmonary hypertension, pt denies COPD as previously charted, pt no longer has hyperlipidemia-taken off medication, IDDM type II, bilateral feet peripheral neuropathy, recent past L great toe ulcer/osteomylitis-gram negative skin tammie, CKD stage IV-has occluded fistula L arm (never recieved dialysis), UTI with sepsis, chronic back/neck pain,. PUD, Left great toe osteomyelitis - 2017 History of Any Multi-Drug Resistant Organisms: None Reported Past Surgical History: Adenoidectomy, Orthopedic Surgery, Pacemaker, Tonsillectomy Additional Past Surgical History / Comment(s): lumbar facet blocks, lt breast cyst removed as child, bilateral cataract removal with lens implants,. Fistula left upper arm to use for dialysis-never used it-pt's stated "it's been occluded for 5 years", colonoscopy, picc line insertion/since removed. Total right knee replacement 02/2018 Past Anesthesia/Blood Transfusion Reactions: No Reported Reaction Type of Cardiac Device: Permanent Pacemaker Device Placement Date:: 2012 Past Psychological History: No Psychological Hx Reported Additional Psychological History / Comment(s): pt lives with his beckie in a 2 story home that has 1 front step and 12 steps to 2nd level where bedroom is. has 1 pet bird. no outside services recieved and no medical equipment. Pt drives. Smoking Status: Never smoker Past Alcohol Use History: Rare Additional Past Alcohol Use History / Comment(s): STARTED SMOKING 1964, QUIT 1993- 1-2 ppd Past Drug Use History: None Reported - Past Family History Mother Family Medical History: Diabetes Mellitus Additional Family Medical History / Comment(s): type 2 in her 70's Father Family Medical History: Diabetes Mellitus Additional Family Medical History / Comment(s): dm type 2 in his 70's Medications and Allergies Home Medications Medication Instructions Recorded Confirmed Type Isosorbide Mononitrate [Isosorbide 15 mg PO DAILY@0900 11/12/15 01/29/20 History Mononitrate ER] Montelukast [Singulair] 10 mg PO HS 11/12/15 01/29/20 History Calcitriol 0.5 mcg PO SUTH 08/10/17 01/29/20 History INSULIN LISPRO (humaLOG) [humaLOG] See Protocol SQ ACHS 09/22/17 01/29/20 Hi story Carbidopa-Levodopa 10-100 mg 1 tab PO BID 08/08/18 01/29/20 History [Sinemet 10-100 mg] Albuterol Sulfate [Ventolin HFA] 2 puff INHALATION RT-Q6H PRN 01/29/20 01/29/20 History Allopurinol [Zyloprim] 100 mg PO Q12H 01/29/20 01/29/20 History Ammonium Lactate Cream [Lac-Hydrin 1 applic TOPICAL HS 01/29/20 01/29/20 History 12% Cream] Carvedilol [Coreg] 12.5 mg PO BID 01/29/20 01/29/20 History Furosemide [Lasix] 20 mg PO BID 01/29/20 01/29/20 History Ipratropium-Albuterol Nebulize 3 ml INHALATION RT-Q8H PRN 01/29/20 01/29/20 History [Duoneb 0.5 mg-3 mg/3 ml Soln] Potassium Chloride [Klor-Con 10] 10 meq PO DAILY 01/29/20 01/29/20 History Warfarin Sodium [Coumadin] 5 mg PO SUMOWEFR 01/29/20 01/29/20 History Warfarin [Coumadin] 7.5 mg PO TUTHSA 01/29/20 01/29/20 History Zolpidem [Ambien] 10 mg PO HS 01/29/20 01/29/20 History oxyCODONE HCL [oxyCODONE HCL (IR)] 10 mg PO Q8H PRN 01/29/20 01/29/20 History Allergies Allergy/AdvReac Type Severity Reaction Status Date / Time midodrine Allergy Rash/Hives Verified 01/29/20 17:26 sodium bicarbonate Allergy Itching Verified 01/29/20 17:26 Physical Exam Vitals: Vital Signs Temp Pulse Pulse Resp BP BP Pulse Ox 01/30/20 08:35 98.9 F 86 24 123/58 100 01/30/20 07:44 92 01/30/20 07:32 88 01/30/20 03:49 98.2 F 85 20 125/58 100 01/29/20 23:58 97.9 F 97 22 125/65 100 01/29/20 21:38 92 01/29/20 21:30 92 01/29/20 20:00 97.9 F 99 26 H 145/71 100 01/29/20 17:58 98.5 F 92 24 151/68 100 01/29/20 16:48 87 23 142/78 98 01/29/20 14:28 28 H 01/29/20 14:21 97.7 F 79 27 H 121/64 97 Intake and Output 01/29/20 01/30/20 01/30/20 22:59 06:59 14:59 Output Total 400 650 Balance -400 -650 Output: Urine 400 650 Other: Voiding Method Urinal Indwelling Catheter Indwelling Catheter Weight 102 kg 98.2 kg Results - Lab Results Most recent lab results Calcium 8.4 mg/dL (8.4-10.2) 01/30/20 05:29 Magnesium 1.9 mg/dL (1.6-2.3) 01/29/20 14:50 01/30/20 05:29 01/30/20 05:29 Assessment and Plan Plan: Assessment: 1. Acute kidney injury secondary to ATN secondary to cardiorenal syndrome. Creatinine 2.98 today. 2. Chronic kidney disease stage IV with baseline creatinine in the range of 2.2-2.4 secondary todiabetic kidney disease. 3. Acute on chronic systolic CHF with ejection fraction of 25-30%. 4. Volume overload. 5. Insulin-dependent diabetes mellitus. 6. Chronic kidney disease mineral bone disease maintained on calcitriol. 7. Anemia of chronic kidney disease. Rule out iron deficiency. Plan: Increase Lasix to 60 mg IV twice daily. Add metolazone 5 mg once daily. Low-salt diet and 1200 mL fluid restriction. Check iron studies. Add Aranesp. Follow-up echocardiogram. Check UA. Repeat electrolytes in the morning. Thank you for the consultation. I will continue to follow patient with you during his hospital stay.
[2020-01-30] MEDS ORDERED: METOLAZONE 5 MG TAB PO SCH (10:00)
--- NOTE | 2020-01-30 10:07 | HP ---
HISTORY AND PHYSICAL DATE OF SERVICE: 01/29/2020 An 79-year-old white male presents with severe weakness, weeping of his lower legs, severe swelling in his lower legs, worsening renal failure, COPD, congestive heart failure, difficulty breathing over the last few weeks since he left the [facility] group home. He is also concerned about a toe infection that more on the second to fourth toes and possible toenail that came off. He has intermittent confusion all the time. MEDICATIONS: Include Sinemet 10 one hundred b.i.d., Humalog, Accu-Chek protocol, calcitriol, Singulair, Imdur, Neurontin and Lasix, famotidine, Carvedilol, Flomax, senna, Percocet. ALLERGIES: Midodrine and sodium bicarbonate. 14 POINT REVIEW OF SYSTEMS: Negative except for as mentioned in HPI, except he fell again at home. He has frequent falls. He has history of atrial fibrillation, heart failure, diastolic, diabetes mellitus, GERD dyslipidemia hypertension, osteoarthritis, renal disease, cardiomyopathy, systolic CHF, bilateral peripheral diabetic neuropathy, possible cellulitis of the legs at different times, chronic kidney disease stage IV, fissure left arm for dialysis, UTI with sepsis, chronic back pain, osteoarthritis in his knees, significant peptic ulcer disease. FAMILY HISTORY: Mother of diabetes mellitus. Father of diabetes mellitus, also. PHYSICAL EXAM: Well developed, well nourished, in no acute distress. Pupils equal, round, reactive to light and accommodation. LUNGS: Some rales at the base. CARDIOVASCULAR: Regular rate and rhythm. ABDOMEN: Soft, nontender. SKIN: Warm and dry. NEUROLOGIC: Cranial nerves are intact. EXTREMITIES: 3+ pedal edema. Some weeping wounds and toe abnormality as mentioned above. PSYCH: Fair mood and affect. Blood pressure 120s/60s, O2 is 97, temperature 97.7, pulse 79. He has CHF. BNP is over 35,000, acute systolic and diastolic CHF, cellulitis of the legs with weeping wounds, possible osteomyelitis of the toes. Will get Dr. Garcia, Cardiology for a new pacemaker, which the family is demanding and IV diuresis and possible dialysis if needed. Prognosis extremely guarded. He has acute on chronic anemia, iron deficiency anemia, thrombocytopenia. MMODL / IJN: [id number] /
[2020-01-30] MEDS ORDERED: Potassium Replacement Protocol 1 EACH MISC MISCELLANE PRN (10:16)
--- NOTE | 2020-01-30 11:14 | P.CNPUL ---
History of Present Illness Consult date: 01/30/20 Reason for consult: dyspnea Chief complaint: Progressive shortness of breath along with anasarca History of present illness: This is a 79-year-old male who was seen evaluated examined on third floor, patient came into the hospital with progressive shortness of breath associated with last 1-2 weeks with increased swelling progressively from the 4 extremities to mid abdominal level in addition patient appears to be having diabetic foot infection with edema and redness in the toes as well in the left foot, patient is arousable but tired on 3 L oxygen, patient is to be started on Lasix drip along with dobutamine drip, patient has a history of COPD chronic systolic heart failure chronic atrial fibrillation diabetes along with chronic renal failure stage IV, currently patient is on WelChol dilators in the form of DuoNeb, ID service has been requested for antibiotics, his chest x-ray consistent with congestive heart failure fluid overload and pulmonary edema in addition to his interstitial edema and small bilateral pleural effusion Review of Systems All systems: negative Past Medical History Past Medical History: Atrial Fibrillation, Heart Failure, Diabetes Mellitus, GERD/Reflux, Hyperlipidemia, Hypertension, Osteoarthritis (OA), Renal Disease Additional Past Medical History / Comment(s): Cardiomyopathy, pulmonary hypertension, pt denies COPD as previously charted, pt no longer has hyperlipidemia-taken off medication, IDDM type II, bilateral feet peripheral neuropathy, recent past L great toe ulcer/osteomylitis-gram negative skin tammie, CKD stage IV-has occluded fistula L arm (never recieved dialysis), UTI with sepsis, chronic back/neck pain,. PUD, Left great toe osteomyelitis - 2017 History of Any Multi-Drug Resistant Organisms: None Reported Past Surgical History: Adenoidectomy, Orthopedic Surgery, Pacemaker, Tonsillectomy Additional Past Surgical History / Comment(s): lumbar facet blocks, lt breast cyst removed as child, bilateral cataract removal with lens implants,. Fistula left upper arm to use for dialysis-never used it-pt's stated "it's been occluded for 5 years", colonoscopy, picc line insertion/since removed. Total right knee replacement 02/2018 Past Anesthesia/Blood Transfusion Reactions: No Reported Reaction Type of Cardiac Device: Permanent Pacemaker Device Placement Date:: 2012 Past Psychological History: No Psychological Hx Reported Additional Psychological History / Comment(s): pt lives with his beckie in a 2 story home that has 1 front step and 12 steps to 2nd level where bedroom is. has 1 pet bird. no outside services recieved and no medical equipment. Pt drives. Smoking Status: Never smoker Past Alcohol Use History: Rare Additional Past Alcohol Use History / Comment(s): STARTED SMOKING 1964, QUIT 1993- 1-2 ppd Past Drug Use History: None Reported - Past Family History Mother Family Medical History: Diabetes Mellitus Additional Family Medical History / Comment(s): type 2 in her 70's Father Family Medical History: Diabetes Mellitus Additional Family Medical History / Comment(s): dm type 2 in his 70's Medications and Allergies Home Medications Medication Instructions Recorded Confirmed Type Isosorbide Mononitrate [Isosorbide 15 mg PO DAILY@0900 11/12/15 01/29/20 History Mononitrate ER] Montelukast [Singulair] 10 mg PO HS 11/12/15 01/29/20 History Calcitriol 0.5 mcg PO SUTH 08/10/17 01/29/20 History INSULIN LISPRO (humaLOG) [humaLOG] See Protocol SQ ACHS 09/22/17 01/29/20 History Carbidopa-Levodopa 10-100 mg 1 tab PO BID 08/08/18 01/29/20 History [Sinemet 10-100 mg] Albuterol Sulfate [Ventolin HFA] 2 puff INHALATION RT-Q6H PRN 01/29/20 01/29/20 History Allopurinol [Zyloprim] 100 mg PO Q12H 01/29/20 01/29/20 History Ammonium Lactate Cream [Lac-Hydrin 1 applic TOPICAL HS 01/29/20 01/29/20 History 12% Cream] Carvedilol [Coreg] 12.5 mg PO BID 01/29/20 01/29/20 History Furosemide [Lasix] 20 mg PO BID 01/29/20 01/29/20 History Ipratropium-Albuterol Nebulize 3 ml INHALATION RT-Q8H PRN 01/29/20 01/29/20 History [Duoneb 0.5 mg-3 mg/3 ml Soln] Potassium Chloride [Klor-Con 10] 10 meq PO DAILY 01/29/20 01/29/20 History Warfarin Sodium [Coumadin] 5 mg PO SUMOWEFR 01/29/20 01/29/20 History Warfarin [Coumadin] 7.5 mg PO TUTHSA 01/29/20 01/29/20 History Zolpidem [Ambien] 10 mg PO HS 01/29/20 01/29/20 History oxyCODONE HCL [oxyCODONE HCL (IR)] 10 mg PO Q8H PRN 01/29/20 01/29/20 History Allergies Allergy/AdvReac Type Severity Reaction Status Date / Time midodrine Allergy Rash/Hives Verified 01/29/20 17:26 sodium bicarbonate Allergy Itching Verified 01/29/20 17:26 Physical Exam Vitals: Vital Signs Temp Pulse Pulse Resp BP BP Pulse Ox 01/30/20 10:51 88 01/30/20 08:35 98.9 F 86 24 123/58 100 01/30/20 07:44 92 01/30/20 07:32 88 01/30/20 03:49 98.2 F 85 20 125/58 100 01/29/20 23:58 97.9 F 97 22 125/65 100 01/29/20 21:38 92 01/29/20 21:30 92 01/29/20 20:00 97.9 F 99 26 H 145/71 100 01/29/20 17:58 98.5 F 92 24 151/68 100 01/29/20 16:48 87 23 142/78 98 01/29/20 14:28 28 H 01/29/20 14:21 97.7 F 79 27 H 121/64 97 Intake and Output 01/29/20 01/30/20 01/30/20 22:59 06:59 14:59 Output Total 400 650 Balance -400 -650 Output: Urine 400 650 Other: Voiding Method Urinal Indwelling Catheter Indwelling Catheter Weight 102 kg 98.2 kg - Constitutional General appearance: disheveled, mild distress, morbidly obese - EENT Eyes: EOMI, PERRLA Ears: bilateral: normal - Neck Neck: normal ROM Carotids: bilateral: upstroke normal - Respiratory Respiratory: bilateral: diminished, dullness, rales (At the bases), negative: CTA, rhonchi, wheezing, prolonged expiration - Cardiovascular Rhythm: regular Heart sounds: normal: S1, S2 - Gastrointestinal General gastrointestinal: normal bowel sounds, soft - Musculoskeletal Musculoskeletal: generalized weakness, strength equal bilaterally - Psychiatric Psychiatric: A&O x's 3, appropriate affect, intact judgment & insight Edema involving the lower extremity up to the abdominal level, in addition left diabetic foot involvement of the toes Results - Laboratory Findings CBC and BMP: 01/30/20 05:29 01/30/20 05:29 PT/INR, D-dimer PT 61.2 sec (9.0-12.0) H 01/29/20 14:50 INR 6.0 (<1.2) H* 01/29/20 14:50 D-Dimer 0.95 mg/L FEU (<0.60) H 01/29/20 14:50 Abnormal lab findings: Abnormal Labs 01/29/20 01/29/20 01/29/20 14:50 14:50 14:50 RBC 3.30 L Hgb 10.0 L Hct 31.2 L MCHC RDW 15.8 H Plt Count 117 L Lymphocytes # 0.6 L PT 61.2 H INR 6.0 H* APTT 48.1 H D-Dimer BUN 58 H Creatinine 2.77 H Glucose 161 H POC Glucose (mg/dL) Total Protein 6.0 L Albumin 3.2 L 01/29/20 01/29/20 01/30/20 14:50 20:09 05:29 RBC 3.12 L Hgb 9.0 L Hct 29.9 L MCHC 30.3 L RDW 15.6 H Plt Count 110 L Lymphocytes # PT INR APTT D-Dimer 0.95 H BUN Creatinine Glucose POC Glucose (mg/dL) 194 H Total Protein Albumin 01/30/20 01/30/20 05:29 06:17 RBC Hgb Hct MCHC RDW Plt Count Lymphocytes # PT INR APTT D-Dimer BUN 60 H Creatinine 2.98 H Glucose 141 H POC Glucose (mg/dL) 177 H Total Protein Albumin - Diagnostic Findings Chest x-ray: report reviewed, image reviewed (Finding as noted above) Assessment and Plan Assessment: Acute on chronic hypoxic respiratory failure Acute on chronic heart failure related to systolic heart failure Left foot with inflammation involving toes Bilateral pleural effusion Bilateral basal atelectasis COPD without exacerbation Severe leg uncontrolled diabetes with chronic complication with worsening Chronic atrial fibrillation Coagulopathy with elevated PT/INR, Coumadin is on hold Stage IV chronic renal failure Plan: Continue bronchodilators No need to start steroids now Broad-spectrum antibiotics as per infectious disease recommendation Agree with inotropes and aggressive generalized diuresis As far as pleural effusion is concerned will monitor and observe no plans for thoracentesis Monitor renal functions and electrolytes closely Continue to hold Coumadin for now Further recommendations pending plan of care as per clinical response of patient Time with Patient: Greater than 30
[2020-01-30] MEDS: ISOSORBIDE MONONITRATE ER 15 MG TAB PO SCH (11:23)
[2020-01-30] MEDS: FUROSEMIDE 100 MG in SODIUM CHLORIDE 0.9% 90 ML IV SCH (11:23)
[2020-01-30] MEDS: DEXTROSE/WATER 1 250ML.BAG with DOPamine DRIP 800 MG IV SCH (11:23)
[2020-01-30] MEDS: DOBUTamine DRIP 500 MG in DEXTROSE/WATER 1 250ML.BAG IV SCH (11:24)
--- NOTE | 2020-01-30 11:28 | CONS ---
CONSULTATION CHIEF COMPLAINT: Shortness of breath and there is leg edema. This is an 79-year-old gentleman with history of cardiomyopathy with congestive heart failure, paroxysmal atrial fibrillation, hypertension, chronic renal insufficiency, dyslipidemia, diabetes, pulmonary hypertension, COPD, history of prior pacemaker placement, who presents to hospital complaining of feeling fatigued, tired and somewhat short of breath and worsening leg edema. He was found to be in acute exacerbation of chronic systolic heart failure and Cardiology had been consulted for the same. At the time of my evaluation this morning, he appears somewhat short of breath at rest and has severe bilateral pitting edema. LABS: Show that the INR is elevated at 6. BUN is 60, creatinine is 2.5. BNP is elevated at 35,100. Troponin is negative. His EKG shows that he has underlying atrial fibrillation with a paced rhythm. His chest x-ray shows congestive heart failure. PAST MEDICAL HISTORY: Significant for cardiomyopathy with severe LV dysfunction, chronic systolic heart failure, hypertension, dyslipidemia, diabetes, atrial fibrillation and there is also COPD and chronic renal failure. PAST SURGICAL HISTORY: Significant for tonsillectomy and pacemaker placement. Patient had a fistula in the left upper arm. MEDICATIONS: At home included carvedilol 25 b.i.d. famotidine, Lasix 80 b.i.d., Imdur 15 daily, Singulair, insulin, Sinemet, Flomax, Coumadin, and Percocet. ALLERGIES: There are no known drug allergies. FAMILY HISTORY: Negative for premature coronary artery disease. SOCIAL HISTORY: Negative for current smoking, EtOH abuse, or drug abuse. REVIEW OF SYSTEMS: HEENT: Unremarkable. CARDIAC: As described above. RESPIRATORY: As described above. GI: Negative. GENITOURINARY: Significant for chronic renal failure. PSYCHOSOCIAL: Negative. ENDOCRINE: Significant for diabetes. HEMATOLOGICAL: Significant for anemia. MUSCULOSKELETAL: Significant for chronic back pain. Rest of the system review is not relevant. PHYSICAL EXAM: Patient appears comfortable at rest, afebrile. heart rate is 86, blood pressure is 120/58, O2 saturation is 100% on 3 L. There is no jugular venous distention. Chest exam reveals bilateral crackles. Heart exam reveals first and second heart sounds and a systolic murmur at the apex. Abdomen appears distended. He has severe bilateral pitting edema involving both lower extremities. Pulses are diminished distally. LABS: Show a hemoglobin of 9, platelet count is 110. INR is 6. Potassium is 4.5, BUN is 60, creatinine is 2.98. Troponin is negative. AST, ALT are normal. EKG is abnormal as described above. ASSESSMENT: 1. Acute exacerbation of chronic systolic heart failure. 2. Permanent atrial fibrillation. 3. Sick sinus syndrome, status post permanent pacemaker. 4. End-stage renal disease. 5. Diabetes. 6. Coagulopathy. PLAN: 1. I am going to start the patient on Lasix drip, renal dose dopamine and dobutamine. 2. I am going to hold the Coumadin at this time. 3. I will obtain a 2D echo. I am going to continue the patient on beta blockers in the form of Coreg. Continue the nitrates and I will adjust medications as needed, based on the response. CELESTE / ZENY: [id number] /
[2020-01-30 11:48] LABS: Glucose,Whole Blood 110 mg/dL (75-99)
[2020-01-30] MEDS: DARBEPOETIN ALFA 40 MCG/0.4 ML SYRINGE SQ SCH (14:17)
--- NOTE | 2020-01-30 15:41 | P.CNNES ---
History of Present Illness Consult date: 01/30/20 Requesting physician: Adán Bynum Reason for Consult: Confusion History of Present Illness: Patient is a 79-year-old male, with history of renal failure, diabetes, hypertension, COPD and CHF came to the hospital with difficulty breathing, dyspnea on exertion. No chest pain. As per EMS flow sheet, his vitals at the scene was 154/87, pulse rate 83, respiration 28. It was reported that above- mentioned symptoms have been present for the past 13 days. Patient used to be in [facility] [place], but then was released home. However his breathing difficulty has been getting worse. Patient was noted to have pitting edema bilaterally with recent weeping. There is some report of confusion, but patient at present appears fairly cognitively intact. Patient denies any focal symptoms or any stroke symptoms. Patient had undergone EKG showed electronic ventricular pacemaker. CXR showed CHF, there are small bibasilar effusions. Patient's blood test shows normal WBC with hemoglobin 10.0 which has dropped to 9.0 as of today. Platelets are 110. INR 6.0, electrolytes are normal, BUN 60, creatinine 2.98, liver panel normal. Troponin negative. Patient's last hemoglobin A1c 6.1 on 08/08/2018. Abarca virus PCR negative. Patient's last echo from 08/09/2018 showed moderate global hypokinesis of left ventricle. EF is 25-30%. Left atrial size normal. Patient had a carotid Doppler on 08/09/2018 which revealed moderate degree of grayscale atheromatous plaquing at the carotid bulbs with no sonographically evident hemodynamically significant stenosis within either visualized carotid arterial system. Antegrade flow in both vertebral arteries. Review of Systems Patient has obvious effect of deep breathing, shortness of breath. Denies chest pain. Denies any abdominal pain nausea vomiting diarrhea. Patient denies headache. Denies any focal numbness tingling weakness or stroke symptoms. Patient does feel fatigued, edema, weight gain. Have some memory issues. Past Medical History Past Medical History: Atrial Fibrillation, Heart Failure, Diabetes Mellitus, GERD/Reflux, Hyperlipidemia, Hypertension, Osteoarthritis (OA), Renal Disease Additional Past Medical History / Comment(s): Cardiomyopathy, pulmonary hypertension, pt denies COPD as previously charted, pt no longer has hyperlipidemia-taken off medication, IDDM type II, bilateral feet peripheral neuropathy, recent past L toe ulcer/osteomylitis-gram negative skin tammie, CKD stage IV-has occluded fistula L arm (never recieved dialysis), UTI with sepsis, chronic back/neck pain,. PUD, Left great toe osteomyelitis - 2017 History of Any Multi-Drug Resistant Organisms: None Reported Past Surgical History: Adenoidectomy, Orthopedic Surgery, Pacemaker, Tonsillectomy Additional Past Surgical History / Comment(s): lumbar facet blocks, lt breast cyst removed as child, bilateral cataract removal with lens implants,. Fistula left upper arm to use for dialysis-never used it-pt's stated "it's been occluded for 5 years", colonoscopy, picc line insertion/since removed. Total right knee replacement 02/2018 Past Anesthesia/Blood Transfusion Reactions: No Reported Reaction Type of Cardiac Device: Permanent Pacemaker Device Placement Date:: 2012 Past Psychological History: No Psychological Hx Reported Additional Psychological History / Comment(s): pt lives with his beckie in a 2 story home that has 1 front step and 12 steps to 2nd level where bedroom is. has 1 pet bird. no outside services recieved and no medical equipment. Pt drives. Smoking Status: Never smoker Past Alcohol Use History: Rare Additional Past Alcohol Use History / Comment(s): STARTED SMOKING 1964, QUIT 1993- 1-2 ppd Past Drug Use History: None Reported - Past Family History Mother Family Medical History: Diabetes Mellitus Additional Family Medical History / Comment(s): type 2 in her 70's Father Family Medical History: Diabetes Mellitus Additional Family Medical History / Comment(s): dm type 2 in his 70's Medications and Allergies Home Medications Medication Instructions Recorded Confirmed Type Isosorbide Mononitrate [Isosorbide 15 mg PO DAILY@0900 11/12/15 01/29/20 History Mononitrate ER] Montelukast [Singulair] 10 mg PO HS 11/12/15 01/29/20 History Calcitriol 0.5 mcg PO SUTH 08/10/17 01/29/20 History INSULIN LISPRO (humaLOG) [humaLOG] See Protocol SQ ACHS 09/22/17 01/29/20 History Carbidopa-Levodopa 10-100 mg 1 tab PO BID 08/08/18 01/29/20 History [Sinemet 10-100 mg] Albuterol Sulfate [Ventolin HFA] 2 puff INHALATION RT-Q6H PRN 01/29/20 01/29/20 History Allopurinol [Zyloprim] 100 mg PO Q12H 01/29/20 01/29/20 History Ammonium Lactate Cream [Lac-Hydrin 1 applic TOPICAL HS 01/29/20 01/29/20 History 12% Cream] Carvedilol [Coreg] 12.5 mg PO BID 01/29/20 01/29/20 History Furosemide [Lasix] 20 mg PO BID 01/29/20 01/29/20 History Ipratropium-Albuterol Nebulize 3 ml INHALATION RT-Q8H PRN 01/29/20 01/29/20 History [Duoneb 0.5 mg-3 mg/3 ml Soln] Potassium Chloride [Klor-Con 10] 10 meq PO DAILY 01/29/20 01/29/20 History Warfarin Sodium [Coumadin] 5 mg PO SUMOWEFR 01/29/20 01/29/20 History Warfarin [Coumadin] 7.5 mg PO TUTHSA 01/29/20 01/29/20 History Zolpidem [Ambien] 10 mg PO HS 01/29/20 01/29/20 History oxyCODONE HCL [oxyCODONE HCL (IR)] 10 mg PO Q8H PRN 01/29/20 01/29/20 History Allergies Allergy/AdvReac Type Severity Reaction Status Date / Time midodrine Allergy Rash/Hives Verified 01/29/20 17:26 sodium bicarbonate Allergy Itching Verified 01/29/20 17:26 Physical Examination - Vital Signs Vital Signs: Vital Signs Temp Pulse Pulse Resp BP BP Pulse Ox 01/30/20 10:51 88 01/30/20 08:35 98.9 F 86 24 123/58 100 01/30/20 07:44 92 01/30/20 07:32 88 01/30/20 03:49 98.2 F 85 20 125/58 100 01/29/20 23:58 97.9 F 97 22 125/65 100 01/29/20 21:38 92 01/29/20 21:30 92 01/29/20 20:00 97.9 F 99 26 H 145/71 100 01/29/20 17:58 98.5 F 92 24 151/68 100 01/29/20 16:48 87 23 142/78 98 01/29/20 14:28 28 H 01/29/20 14:21 97.7 F 79 27 H 121/64 97 Intake and Output 01/29/20 01/30/20 01/30/20 22:59 06:59 14:59 Output Total 400 650 Balance -400 -650 Output: Urine 400 650 Other: Voiding Method Urinal Indwelling Catheter Indwelling Catheter Weight 102 kg 98.2 kg On examination patient is an elderly male, in no distress. Patient is slightly somnolent, as he had received Haldol recently. However he did wake up and became more awake and alert. Patient knows it is January and the year is 2001. He thinks he is in [facility]. He knows name of the current president. Speech and language functions are normal. Knows his age and date of . Patient has slightly slow mentation. He can name and repeat very well. No aphasia or dysarthria. On cranial nerve examination pupils are round and reactive to light, visual chacon are full on confrontation. Extraocular muscles are intact although he has nystagmus on end gaze bilaterally. Face is symmetric and tongue protrudes to the midline. 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 Deltoids are weak probably from arthritis. In the lower extremities his ankles and toes are normal whereas hip flexion is 3+to 4- bilaterally with some giveaway weakness due to edema and hea viness in the legs. He has pitting edema bilateral feet. Reflexes are diminished and plantars are flat. Sensory touch is equal with no neglect. No ataxia for [id number]. Gait deferred. He has some bruises over his legs. Patient has some rhonchi. Abdomen is soft and nontender. No carotid bruit or murmur. Results - Laboratory Findings CBC and BMP: 01/30/20 05:29 01/30/20 05:29 Abnormal Lab Findings: Abnormal Labs 01/29/20 01/29/20 01/29/20 14:50 14:50 14:50 RBC 3.30 L Hgb 10.0 L Hct 31.2 L MCHC RDW 15.8 H Plt Count 117 L Lymphocytes # 0.6 L PT 61.2 H INR 6.0 H* APTT 48.1 H D-Dimer BUN 58 H Creatinine 2.77 H Glucose 161 H POC Glucose (mg/dL) Total Protein 6.0 L Albumin 3.2 L 01/29/20 01/29/20 01/30/20 14:50 20:09 05:29 RBC 3.12 L Hgb 9.0 L Hct 29.9 L MCHC 30.3 L RDW 15.6 H Plt Count 110 L Lymphocytes # PT INR APTT D-Dimer 0.95 H BUN Creatinine Glucose POC Glucose (mg/dL) 194 H Total Protein Albumin 01/30/20 01/30/20 05:29 06:17 RBC Hgb Hct MCHC RDW Plt Count Lymphocytes # PT INR APTT D-Dimer BUN 60 H Creatinine 2.98 H Glucose 141 H POC Glucose (mg/dL) 177 H Total Protein Albumin Assessment and Plan Assessment: * Altered mental status, likely due to metabolic encephalopathy. * Exacerbation of CHF. * Atrial fibrillation, on anticoagulation with Coumadin. * Diabetes * Hypertension * Chronic renal insufficiency. * Anemia of chronic disease. * Peripheral neuropathy. Plan: * Patient's confusion is likely related to metabolic encephalopathy related to multiple conditions mentioned above. * No other neurological workup indicated. * We will check B12, folate and thyroid functions. * Neurology will sign off. Please call neurology if any other concerns.
[2020-01-30 15:57] LABS: % Iron Saturation 4.29 (15.00-50.00); Ferritin 304.1 ng/mL (22.0-322.0)
[2020-01-30 16:42] LABS: Glucose,Whole Blood 96 mg/dL (75-99)
[2020-01-30 17:28] LABS: Appearance,Urine Cloudy (Clear); Bacteria,Urine Rare /hpf; Bilirubin,Urine Negative (Negative); Blood,Urine Moderate (Negative); Color,Urine Yellow; Glucose,Urine (UA) Negative (Negative); Hyaline Casts,Urine 75 /lpf (0-2); Ketones,Urine Negative (Negative); Leukocyte Esterase,Urine Large (Negative); Mucus,Urine Rare /hpf; Nitrite,Urine Negative (Negative); Protein,Urine 1+ (Negative); RBC,Urine >182 /hpf (0-5); Specific Gravity,Urine 1.013 (1.001-1.035); Squamous Epithelial Cell,Urine 1 /hpf (0-4); Urobilinogen,Urine <2.0 mg/dL (<2.0); WBC,Urine 176 /hpf (0-5)
[2020-01-30] MEDS: MONTELUKAST 10 MG TAB PO SCH (20:16)
[2020-01-30] MEDS: TAMSULOSIN 0.4 MG CAP.ER.24H PO SCH (20:16)
[2020-01-30] MEDS: CARVEDILOL 3.125 MG TAB PO SCH (20:16)
[2020-01-30 20:30] LABS: Glucose,Whole Blood 99 mg/dL (75-99)
[2020-01-30] MEDS ORDERED: FUROSEMIDE 10 MG/ML 10 ML VIAL IV SCH (21:00)
--- NOTE | 2020-01-30 22:01 | P.CONS ---
History of Present Illness - Reason for Consult Consult date: 01/30/20 toe infection/cellulitis Requesting physician: Adán Bynum - Chief Complaint shortness of breath x 1 week - History of Present Illness Patient is 79-year-old male was brought into the ER at [facility] yesterday for evaluation of increasing shortness of breath that apparently has been getting worse over the last 1 week though no history of any palpitation or chest pain on arrival to the ER patient also noticed to have increasing swelling to his lower extremity and the mentioned that his left foot dose was getting more regular in the fourth toe nail came off and he presented to hospital with no clear history of any trauma or anything falling on on it there is no clear history of any fever or chills with the symptom the patient was evaluated by the ER physician on arrival to the ER the patient has been afebrile and no fever has been recorded since then patient on admission did have a normal white count seen yesterday described has been on 2.77 on admission patient urine was positive with large extravasated minimal BC lomas PCR was negative patient did have a chest x-ray which was correlate for congestive heart failure small bilateral effusion patient has been admitted to hospital with concern for congestive heart failure has been started on Lasix and dobutamine drip infectious was consulted with concern for possible toe infection most information has been obtained from review the chart document nursing staff and the patient was interviewed this morning and has received a dose of Haldol and was currently unresponsive and did not provide any history. Review of Systems Positive point has been mentioned in HPI complete review could not be done because of his underlying mental condition Past Medical History Past Medical History: Atrial Fibrillation, Heart Failure, Diabetes Mellitus, GERD/Reflux, Hyperlipidemia, Hypertension, Osteoarthritis (OA), Renal Disease Additional Past Medical History / Comment(s): Cardiomyopathy, pulmonary hypertension, pt denies COPD as previously charted, pt no longer has hyperlipidemia-taken off medication, IDDM type II, bilateral feet peripheral neuropathy, recent past L great toe ulcer/osteomylitis-gram negative skin tammie, CKD stage IV-has occluded fistula L arm (never recieved dialysis), UTI with sepsis, chronic back/neck pain,. PUD, Left great toe osteomyelitis - 2017 History of Any Multi-Drug Resistant Organisms: None Reported Past Surgical History: Adenoidectomy, Orthopedic Surgery, Pacemaker, Tonsillectomy Additional Past Surgical History / Comment(s): lumbar facet blocks, lt breast cyst removed as child, bilateral cataract removal with lens implants,. Fistula left upper arm to use for dialysis-never used it-pt's stated "it's been occluded for 5 years", colonoscopy, picc line insertion/since removed. Total right knee replacement 02/2018 Past Anesthesia/Blood Transfusion Reactions: No Reported Reaction Type of Cardiac Device: Permanent Pacemaker Device Placement Date:: 2012 Past Psychological History: No Psychological Hx Reported Additional Psychological History / Comment(s): pt lives with his beckie in a 2 story home that has 1 front step and 12 steps to 2nd level where bedroom is. has 1 pet bird. no outside services recieved and no medical equipment. Pt drives. Smoking Status: Never smoker Past Alcohol Use History: Rare Additional Past Alcohol Use History / Comment(s): STARTED SMOKING 1964, QUIT 1993- 1-2 ppd Past Drug Use History: None Reported - Past Family History Mother Family Medical History: Diabetes Mellitus Additional Family Medical History / Comment(s): type 2 in her 70's Father Family Medical History: Diabetes Mellitus Additional Family Medical History / Comment(s): dm type 2 in his 70's Medications and Allergies Home Medications Medication Instructions Recorded Confirmed Type Isosorbide Mononitrate [Isosorbide 15 mg PO DAILY@0900 11/12/15 01/29/20 History Mononitrate ER] Montelukast [Singulair] 10 mg PO HS 11/12/15 01/29/20 History Calcitriol 0.5 mcg PO SUTH 08/10/17 01/29/20 History INSULIN LISPRO (humaLOG) [humaLOG] See Protocol SQ ACHS 09/22/17 01/29/20 History Carbidopa-Levodopa 10-100 mg 1 tab PO BID 08/08/18 01/29/20 History [Sinemet 10-100 mg] Albuterol Sulfate [Ventolin HFA] 2 puff INHALATION RT-Q6H PRN 01/29/20 01/29/20 History Allopurinol [Zyloprim] 100 mg PO Q12H 01/29/20 01/29/20 History Ammonium Lactate Cream [Lac-Hydrin 1 applic TOPICAL HS 01/29/20 01/29/20 History 12% Cream] Carvedilol [Coreg] 12.5 mg PO BID 01/29/20 01/29/20 History Furosemide [Lasix] 20 mg PO BID 01/29/20 01/29/20 History Ipratropium-Albuterol Nebulize 3 ml INHALATION RT-Q8H PRN 01/29/20 01/29/20 History [Duoneb 0.5 mg-3 mg/3 ml Soln] Potassium Chloride [Klor-Con 10] 10 meq PO DAILY 01/29/20 01/29/20 History Warfarin Sodium [Coumadin] 5 mg PO SUMOWEFR 01/29/20 01/29/20 History Warfarin [Coumadin] 7.5 mg PO TUTHSA 01/29/20 01/29/20 History Zolpidem [Ambien] 10 mg PO HS 01/29/20 01/29/20 History oxyCODONE HCL [oxyCODONE HCL (IR)] 10 mg PO Q8H PRN 01/29/20 01/29/20 History Allergies Allergy/AdvReac Type Severity Reaction Status Date / Time midodrine Allergy Rash/Hives Verified 01/29/20 17:26 sodium bicarbonate Allergy Itching Verified 01/29/20 17:26 Physical Exam Vitals: Vital Signs Temp Pulse Pulse Resp BP BP Pulse Ox 01/30/20 11:03 88 01/30/20 11:00 98.6 F 74 20 118/57 99 01/30/20 10:51 88 01/30/20 08:35 98.9 F 86 24 123/58 100 01/30/20 07:44 92 01/30/20 07:32 88 01/30/20 03:49 98.2 F 85 20 125/58 100 01/29/20 23:58 97.9 F 97 22 125/65 100 01/29/20 21:38 92 01/29/20 21:30 92 01/29/20 20:00 97.9 F 99 26 H 145/71 100 01/29/20 17:58 98.5 F 92 24 151/68 100 01/29/20 16:48 87 23 142/78 98 01/29/20 14:28 28 H 01/29/20 14:21 97.7 F 79 27 H 121/64 97 Intake and Output 01/29/20 01/30/20 01/30/20 22:59 06:59 14:59 Intake Total 140 Output Total 400 650 Balance -400 -650 140 Intake: IV 140 .9 @ 20 140 Output: Urine 400 650 Other: Voiding Method Urinal Indwelling Catheter Indwelling Catheter Weight 102 kg 98.2 kg 98.2 kg GENERAL DESCRIPTION: Elderly male lying in bed, no distress. No tachypnea or accessory muscle of respiration use. HEENT: Shows Pallor , no scleral icterus. Oral mucous membrane is dry. NECK: Trachea central, no thyromegaly. LUNGS: Unlabored breathing. Decreased breath sound at the bases HEART: S1, S2, regular rate and rhythm. ABDOMEN: Soft, no tenderness , guarding or rigidity EXTREMITIES: 2+ edema of feet. Right leg did have some redness, left foot toes with minimal erythema some scabbing no purulent drainage SKIN: No rash, no masses palpable. NEUROLOGICAL: The patient is lethargic orientation could not be determined. Results CBC & Chem 7: 01/30/20 05:29 01/30/20 05:29 Labs: Abnormal Lab Results - Last 24 Hours (Table) 01/29/20 01/29/20 01/29/20 Range/Units 14:50 14:50 14:50 RBC 3.30 L (4.30-5.90) m/uL Hgb 10.0 L (13.0-17.5) gm/dL Hct 31.2 L (39.0-53.0) % MCHC (31.0-37.0) g/dL RDW 15.8 H (11.5-15.5) % Plt Count 117 L (150-450) k/uL Lymphocytes # 0.6 L (1.0-4.8) k/uL PT 61.2 H (9.0-12.0) sec INR 6.0 H* (<1.2) APTT 48.1 H (22.0-30.0) sec D-Dimer (<0.60) mg/L FEU BUN 58 H (9-20) mg/dL Creatinine 2.77 H (0.66-1.25) mg/dL Glucose 161 H (74-99) mg/dL POC Glucose (mg/dL) (75-99) mg/dL Total Protein 6.0 L (6.3-8.2) g/dL Albumin 3.2 L (3.5-5.0) g/dL 01/29/20 01/29/20 01/30/20 Range/Units 14:50 20:09 05:29 RBC 3.12 L (4.30-5.90) m/uL Hgb 9.0 L (13.0-17.5) gm/dL Hct 29.9 L (39.0-53.0) % MCHC 30.3 L (31.0-37.0) g/dL RDW 15.6 H (11.5-15.5) % Plt Count 110 L (150-450) k/uL Lymphocytes # (1.0-4.8) k/uL PT (9.0-12.0) sec INR (<1.2) APTT (22.0-30.0) sec D-Dimer 0.95 H (<0.60) mg/L FEU BUN (9-20) mg/dL Creatinine (0.66-1.25) mg/dL Glucose (74-99) mg/dL POC Glucose (mg/dL) 194 H (75-99) mg/dL Total Protein (6.3-8.2) g/dL Albumin (3.5-5.0) g/dL 01/30/20 01/30/20 01/30/20 Range/Units 05:29 06:17 11:33 RBC (4.30-5.90) m/uL Hgb (13.0-17.5) gm/dL Hct (39.0-53.0) % MCHC (31.0-37.0) g/dL RDW (11.5-15.5) % Plt Count (150-450) k/uL Lymphocytes # (1.0-4.8) k/uL PT (9.0-12.0) sec INR (<1.2) APTT (22.0-30.0) sec D-Dimer (<0.60) mg/L FEU BUN 60 H (9-20) mg/dL Creatinine 2.98 H (0.66-1.25) mg/dL Glucose 141 H (74-99) mg/dL POC Glucose (mg/dL) 177 H 110 H (75-99) mg/dL Total Protein (6.3-8.2) g/dL Albumin (3.5-5.0) g/dL Assessment and Plan Assessment: patient presented to hospital with increasing shortness of breath this was also having increasing swelling lower extremity secondary to underlying fluid overload with congestive heart failure for the patient being managed by cardiology patient did have a erythema and warmth to the right leg with a question of possible component of cellulitis, left foot toes minimal erythema underlying cellulitis bundle excluded likely from gram-positive skin tammie. 2-positive UA questionable asymptomatic bacteriuria as it is hard to get any history from this patient of any urinary symptoms (1) Cellulitis of right leg Current Visit: Yes Status: Acute Code(s): L03.115 - CELLULITIS OF RIGHT LOWER LIMB SNOMED Code(s): 127402530 Plan: 1- Cefazolin 2 g x 1 then 1 g every 12 hours dose adjusted his kidney function. 2-marked the area of the redness right leg We will follow on clinical condition and cultures to further adjust medication if needed Thank you for this consultation we will follow the patient along with you Time with Patient: Greater than 30
[2020-01-31] MEDS: FUROSEMIDE 100 MG in SODIUM CHLORIDE 0.9% 90 ML IV SCH (03:04)
[2020-01-31] MEDS: DOBUTamine DRIP 500 MG in DEXTROSE/WATER 1 250ML.BAG IV SCH ×2 (03:04→20:54)
[2020-01-31 05:59] LABS: Glucose,Whole Blood 119 mg/dL (75-99)
[2020-01-31] MEDS: INSULIN ASPART (NovoLOG) 100 UNIT/ML VIAL SQ SCH ×4 (06:01→20:38)
[2020-01-31 06:27] LABS: INR 3.8 (<1.2); Prothrombin Time 37.1 sec (9.0-12.0)
[2020-01-31 06:29] LABS: Calcium 8.5 mg/dL (8.4-10.2); Magnesium 1.9 mg/dL (1.6-2.3); Potassium 4.6 mmol/L (3.5-5.1)
[2020-01-31] MEDS: IPRATROPIUM-ALBUTEROL 3 ML NEB INHALATION SCH ×4 (07:55→19:55)
[2020-01-31] MEDS: FERROUS SULFATE 325 MG TAB PO SCH (08:09)
[2020-01-31] MEDS: ISOSORBIDE MONONITRATE ER 15 MG TAB PO SCH (08:09)
[2020-01-31] MEDS: CARVEDILOL 3.125 MG TAB PO SCH ×2 (08:09→20:49)
[2020-01-31] MEDS: CARBIDOPA-LEVODOPA 10-100 MG 1 EACH TAB PO SCH ×2 (08:09→20:49)
[2020-01-31] MEDS: GABAPENTIN 300 MG CAP PO SCH (08:10)
[2020-01-31] MEDS: INSULIN DETEMIR (LEVEMIR) 100 UNIT/ML SYR SQ SCH ×2 (08:10→20:38)
[2020-01-31] MEDS: SENNOSIDES 8.6 MG TAB PO SCH ×2 (08:10→20:49)
[2020-01-31] MEDS: FAMOTIDINE 20 MG TAB PO SCH (08:10)
--- NOTE | 2020-01-31 09:00 | ECHOF ---
Referral Reason:chf MEASUREMENTS -------- HEIGHT: 175.3 cm WEIGHT: 98.0 kg BP: 123/58 RVIDd: 4.2 cm (< 3.3) IVSd: 1.4 cm (0.6 - 1.1) LVIDd: 5.1 cm (3.9 - 5.3) LVPWd: 1.8 cm (0.6 - 1.1) IVSs: 2.0 cm LVIDs: 4.5 cm LVPWs: 1.8 cm LAESV Index (A-L): 40.41 ml/m Ao Diam: 3.5 cm (2.0 - 3.7) AV Cusp: 1.1 cm (1.5 - 2.6) MV EXCURSION: 16.009 mm (> 18.000) MV EF SLOPE: 81 mm/s (70 - 150) EPSS: 1.1 cm MV E Orestes: 1.21 m/s MV DecT: 148 ms MV A Orestes: 0.81 m/s MV E/A Ratio: 1.49 AV maxP.38 mmHg AV meanP.36 mmHg RAP: 20.00 mmHg RVSP: 72.11 mmHg FINDINGS -------- Sinus rhythm. This was a technically difficult study with suboptimal apical views. The left ventricular size is normal. There is moderate concentric left ventricular hypertrophy. T here is severe global hypokinesis of LV . Overall left ventricular systolic function is severely im paired with, an EF between 20 - 25 %. Mitral Doppler inflow pattern suggests diastolic filling abno rmality {E/E'}. The right ventricle is moderately enlarged. LA is severely dilated >40 ml/m2 The right atrium is mildly enlarged. Electronic pacemaker lead seen in the right atrial cavity. 5.0mg of Lumason was utilized for enhancement of images Interatrial and interventricular septum intact. The aortic valve was not well visualized. There is moderate aortic stenosis present. Peak/mean gr adient across the Aortic Valve is 27.38mmHg / 16.36mmHg. Mild mitral annular calcification present. Gyzzelri-yp-mrfsms mitral regurgitation is present. Severe tricuspid regurgitation present. There is severe pulmonary hypertension. The right ventric ular systolic pressure, as measured by Doppler, is 72.11mmHg. There is no pulmonic regurgitation present. The aortic root size is normal. The inferior vena cava is dilated with poor inspiratory collapse which is consistent with estimated r ight atrial pressure of 20 mmHg. There is no pericardial effusion. CONCLUSIONS -------- 1. Sinus rhythm. 2. This was a technically difficult study with suboptimal apical views. 3. The left ventricular size is normal. 4. There is moderate concentric left ventricular hypertrophy. 5. There is severe global hypokinesis of LV . 6. Overall left ventricular systolic function is severely impaired with, an EF between 20 - 25 %. 7. Mitral Doppler inflow pattern suggest diastolic filling abnormality {E/E'}. 8. The right ventricle is moderately enlarged. 9. LA is severely dilated >40 ml/m2 10. The right atrium is mildly enlarged. 11. Electronic pacemaker lead seen in the right atrial cavity. 12. 5.0mg of Lumason was utilized for enhancement of images 13. Interatrial and interventricular septum intact. 14. The aortic valve was not well visualized. 15. There is moderate aortic stenosis present. 16. Peak/mean gradient across the Aortic Valve is 27.38mmHg / 16.36mmHg. 17. Mild mitral annular calcification present. 18. Cilpbxcj-jf-pamivc mitral regurgitation is present. 19. Severe tricuspid regurgitation present. 20. There is severe pulmonary hypertension. 21. The right ventricular systolic pressure, as measured by Doppler, is 72.11mmHg. 22. There is no pulmonic regurgitation present. 23. The aortic root size is normal. 24. The inferior vena cava is dilated with poor inspiratory collapse which is consistent with estimat ed right atrial pressure of 20 mmHg. 25. There is no pericardial effusion. TAG MAKER: Kala Elise RDCS
[2020-01-31] MEDS: DEXTROSE/WATER 1 250ML.BAG with DOPamine DRIP 800 MG IV SCH (10:37)
[2020-01-31 11:26] LABS: Glucose,Whole Blood 178 mg/dL (75-99)
--- NOTE | 2020-01-31 11:55 | P.PN ---
Subjective Patient is seen in follow-up for acute kidney injury on chronic any disease. Patient has chronic kidney disease stage IV with baseline creatinine in the range of 2.2-2.4. Renal function continues to worsen. Creatinine 3.59 today. He is currently maintained on dobutamine, dopamine as well as Lasix drip. Urine output near 1.5 L the last 24 hours. Still quite edematous. Vital signs are stable. General: The patient appeared well nourished and normally developed. HEENT: Head exam is unremarkable. Neck is without jugular venous distension. LUNGS: Breath sounds decreased. HEART: Rate and Rhythm are regular. ABDOMEN: Soft, nontender. EXTREMITITES: 2+ edema. Objective - Vital Signs Vital signs: Vital Signs Temp 98.1 F 01/31/20 08:00 Pulse 92 01/31/20 11:46 Resp 18 01/31/20 08:00 BP 119/70 01/31/20 08:00 Pulse Ox 99 01/31/20 08:00 Intake & Output 01/30/20 01/31/20 01/31/20 18:59 06:59 18:59 Intake Total 356.167 294.603 180 Output Total 145 415 Balance 211.167 -120.397 180 Weight 98.2 kg 98.5 kg Intake: IV 140 .9 @ 20 140 Intake, IV Titration 36.167 294.603 Amount DOBUTamine DRIP 500 mg In 230.77 Dextrose/Water 1 250ml. bag @ 5 MCG/KG/MIN 14.73 mls/hr IV .[id number] [facility] Rx #:[id number] Furosemide 100 mg In 36.167 63.833 Sodium Chloride 0.9% 90 ml @ 10 MG/HR 10 mls/hr IV .Q10H [facility] Rx#: [id number] Oral 180 180 Output: Urine 145 415 Uretheral (Porter) 145 Other: Voiding Method Indwelling Catheter Indwelling Catheter Indwelling Catheter # Bowel Movements 1 - Labs CBC & Chem 7: 01/30/20 05:29 01/31/20 05:10 Labs: Abnormal Lab Results - Last 24 Hours (Table) 01/30/20 01/30/20 01/31/20 Range/Units 05:29 16:22 05:10 PT (9.0-12.0) sec INR (<1.2) BUN 66 H (9-20) mg/dL Creatinine 3.59 H (0.66-1.25) mg/dL POC Glucose (mg/dL) (75-99) mg/dL Iron 10 L (65-175) ug/dL % Saturation 4.29 L (15.00-50.00) Urine Protein 1+ H (Negative) Urine Blood Moderate H (Negative) Ur Leukocyte Esterase Large H (Negative) Urine RBC >182 H (0-5) /hpf Urine WBC 176 H (0-5) /hpf Urine WBC Clumps Many H (None) /hpf Urine Bacteria Rare H (None) /hpf Hyaline Casts 75 H (0-2) /lpf Urine Mucus Rare H (None) /hpf 01/31/20 01/31/20 01/31/20 Range/Units 05:10 05:57 11:14 PT 37.1 H (9.0-12.0) sec INR 3.8 H (<1.2) BUN (9-20) mg/dL Creatinine (0.66-1.25) mg/dL POC Glucose (mg/dL) 119 H 178 H (75-99) mg/dL Iron (65-175) ug/dL % Saturation (15.00-50.00) Urine Protein (Negative) Urine Blood (Negative) Ur Leukocyte Esterase (Negative) Urine RBC (0-5) /hpf Urine WBC (0-5) /hpf Urine WBC Clumps (None) /hpf Urine Bacteria (None) /hpf Hyaline Casts (0-2) /lpf Urine Mucus (None) /hpf Microbiology - Last 24 Hours (Table) 01/30/20 16:22 Urine Culture - Preliminary Urine,Catheterized Assessment and Plan Plan: Assessment: 1. Acute kidney injury secondary to ATN secondary to cardiorenal syndrome. Re nal function worsening. Creatinine 3.59 today. 2. Chronic kidney disease stage IV with baseline creatinine in the range of 2.2-2.4 secondary to diabetic kidney disease. 3. Acute on chronic systolic CHF with ejection fraction of 25-30% with moderate aortic stenosis, moderate to severe mitral regurgitation, severe tricuspid regurgitation and severe pulmonary hypertension. 4. Volume overload. 5. Insulin-dependent diabetes mellitus. 6. Chronic kidney disease mineral bone disease maintained on calcitriol. 7. Anemia of chronic kidney disease maintained on Aranesp. Severe iron deficiency noted. 8. Chronic kidney disease mineral bone disease maintained on calcitriol. Plan: Increase Lasix drip to 15 mL an hour. Add metolazone 5 mg once daily. Maintain dopamine and dobutamine per cardiology. Low-salt diet and 1200 mL fluid restriction. IV iron 3 doses. First dose today. Decrease gabapentin to 300 mg once daily. Repeat electrolytes in the morning.
[2020-01-31 12:44] LABS: Folate, Serum 23.8 ng/mL
[2020-01-31] MEDS: SODIUM FERRIC GLUCONAT-SUCROSE 125 MG in SODIUM CHLORIDE 0.9% 100 ML IVPB SCH (13:05)
[2020-01-31] MEDS: METOLAZONE 5 MG TAB PO SCH (13:06)
--- NOTE | 2020-01-31 15:26 | P.PN ---
Subjective Progress Note Date: 01/31/20 Principal diagnosis: Acute on chronic hypoxic respiratory failure Acute on chronic heart failure related to systolic heart failure Left foot with inflammation involving toes Bilateral pleural effusion Bilateral basal atelectasis COPD without exacerbation Severe leg uncontrolled diabetes with chronic complication with worsening Chronic atrial fibrillation Coagulopathy with elevated PT/INR, Coumadin is on hold Stage IV chronic renal failure 01/31/2020, patient seen eval examined during the rounds has history of oxygen breathing status stable, saturation is 90-93%, patient has been on dobutamine and dopamine and Lasix strip, INR is coming down, BUN/creatinine slightly up This is a 79-year-old male who was seen evaluated examined on third floor, patient came into the hospital with progressive shortness of breath associated with last 1-2 weeks with increased swelling progressively from the 4 extremities to mid abdominal level in addition patient appears to be having diabetic foot infection with edema and redness in the toes as well in the left foot, patient is arousable but tired on 3 L oxygen, patient is to be started on Lasix drip along with dobutamine drip, patient has a history of COPD chronic systolic heart failure chronic atrial fibrillation diabetes along with chronic renal failure stage IV, currently patient is on WelChol dilators in the form of DuoNeb, ID service has been requested for antibiotics, his chest x-ray consistent with congestive heart failure fluid overload and pulmonary edema in addition to his interstitial edema and small bilateral pleural effusion Objective - Vital Signs Vital signs: Vital Signs Temp 98.1 F 01/31/20 12:00 Pulse 99 01/31/20 12:00 Resp 18 01/31/20 12:00 BP 108/56 01/31/20 12:00 Pulse Ox 95 01/31/20 12:00 Intake & Output 01/30/20 01/31/20 01/31/20 18:59 06:59 18:59 Intake Total 356.167 294.603 180 Output Total 145 415 Balance 211.167 -120.397 180 Weight 98.2 kg 98.5 kg Intake: IV 140 .9 @ 20 140 Intake, IV Titration 36.167 294.603 Amount DOBUTamine DRIP 500 mg In 230.77 Dextrose/Water 1 250ml. bag @ 5 MCG/KG/MIN 14.73 mls/hr IV .[id number] [facility] Rx #:[id number] Furosemide 100 mg In 36.167 63.833 Sodium Chloride 0.9% 90 ml @ 10 MG/HR 10 mls/hr IV .Q10H [facility] Rx#: [id number] Oral 180 180 Output: Urine 145 415 Uretheral (Porter) 145 Other: Voiding Method Indwelling Catheter Indwelling Catheter Indwelling Catheter # Bowel Movements 1 - Exam - Constitutional General appearance: disheveled, mild distress, morbidly obese - EENT Eyes: EOMI, PERRLA Ears: bilateral: normal - Neck Neck: normal ROM Carotids: bilateral: upstroke normal - Respiratory Respiratory: bilateral: diminished, dullness, rales (At the bases), negative: CTA, rhonchi, wheezing, prolonged expiration - Cardiovascular Rhythm: regular Heart sounds: normal: S1, S2 - Gastrointestinal General gastrointestinal: normal bowel sounds, soft - Musculoskeletal Musculoskeletal: generalized weakness, strength equal bilaterally - Psychiatric Psychiatric: A&O x's 3, appropriate affect, intact judgment & insight Edema involving the lower extremity up to the abdominal level, in addition left diabetic foot involvement of the toes - Labs CBC & Chem 7: 01/30/20 05:29 01/31/20 05:10 Labs: Abnormal Lab Results - Last 24 Hours (Table) 01/30/20 01/30/20 01/31/20 Range/Units 05:29 16:22 05:10 PT (9.0-12.0) sec INR (<1.2) BUN 66 H (9-20) mg/dL Creatinine 3.59 H (0.66-1.25) mg/dL POC Glucose (mg/dL) (75-99) mg/dL Iron 10 L (65-175) ug/dL % Saturation 4.29 L (15.00-50.00) Urine Protein 1+ H (Negative) Urine Blood Moderate H (Negative) Ur Leukocyte Esterase Large H (Negative) Urine RBC >182 H (0-5) /hpf Urine WBC 176 H (0-5) /hpf Urine WBC Clumps Many H (None) /hpf Urine Bacteria Rare H (None) /hpf Hyaline Casts 75 H (0-2) /lpf Urine Mucus Rare H (None) /hpf 01/31/20 01/31/20 01/31/20 Range/Units 05:10 05:57 11:14 PT 37.1 H (9.0-12.0) sec INR 3.8 H (<1.2) BUN (9-20) mg/dL Creatinine (0.66-1.25) mg/dL POC Glucose (mg/dL) 119 H 178 H (75-99) mg/dL Iron (65-175) ug/dL % Saturation (15.00-50.00) Urine Protein (Negative) Urine Blood (Negative) Ur Leukocyte Esterase (Negative) Urine RBC (0-5) /hpf Urine WBC (0-5) /hpf Urine WBC Clumps (None) /hpf Urine Bacteria (None) /hpf Hyaline Casts (0-2) /lpf Urine Mucus (None) /hpf Microbiology - Last 24 Hours (Table) 01/30/20 16:22 Urine Culture - Preliminary Urine,Catheterized Assessment and Plan Assessment: Acute on chronic hypoxic respiratory failure Acute on chronic heart failure related to systolic heart failure Left foot with inflammation involving toes Bilateral pleural effusion Bilateral basal atelectasis COPD without exacerbation Severe leg uncontrolled diabetes with chronic complication with worsening Chronic atrial fibrillation Coagulopathy with elevated PT/INR, Coumadin is on hold Stage IV chronic renal failure Plan: Continue bronchodilators No need to start steroids now Broad-spectrum antibiotics as per infectious disease recommendation Agree with inotropes and aggressive generalized diuresis with Lasix As far as pleural effusion is concerned will monitor and observe no plans for thoracentesis Monitor renal functions and electrolytes closely Continue to hold Coumadin for now Further recommendations pending plan of care as per clinical response of patient Time with Patient: Greater than 30
--- NOTE | 2020-01-31 15:46 | CONS ---
CONSULTATION This is an 79-year-old gentleman who is admitted to hospital with acute exacerbation of chronic systolic heart failure, also had urinary tract infection. An echocardiogram on him shows an ejection fraction of 20% to 25%. with moderate aortic stenosis. Patient was started on Lasix drip whose dose had been increased to 15 this morning. On dobutamine and dopamine with some improvement in his urine output. Renal functions He seems a little less responsive today than he was yesterday. Neurology had evaluated him and they felt that he had metabolic encephalopathy. The patient has permanent atrial fibrillation and is on Coumadin, but Coumadin is on hold secondary to coagulopathy. PHYSICAL EXAM: Today heart rate is 88 beats per minute. Blood pressure is 120/70, respiratory rate is 18, O2 saturation is 99% on 2 L. Chest exam reveals diminished air entry at the bases. Heart exam reveals first and second heart sounds, irregular rhythm and a systolic murmur at the left lower sternal border. Abdomen is soft. Exam of extremities reveals bilateral pitting edema, somewhat improved from yesterday. LABS: Show the INR is 3.8, BUN is 66, creatinine is 3.5. Potassium is 4.6 and hemoglobin is 9 and platelet count is 110. ASSESSMENT: 1. Acute exacerbation of chronic systolic heart failure. 2. Chronic renal failure. 3. Cardiomyopathy. 4. Altered sensorium. 5. Urinary tract infection. PLAN: Patient will continue current medications, including Lasix drip, dobutamine and dopamine. Prognosis is guarded. MMODL / IJN: [id number] /
[2020-01-31 16:22] LABS: Glucose,Whole Blood 107 mg/dL (75-99)
--- NOTE | 2020-01-31 16:28 | PN ---
PROGRESS NOTE DATE OF SERVICE: 01/31/2020 REASON FOR FOLLOWUP: Right lower extremity cellulitis. INTERVAL HISTORY: The patient is currently afebrile, patient is breathing more comfortably, more awake, alert. Denies any chest pain or cough. No nausea, vomiting, abdominal pain. Pain to the right leg. PHYSICAL EXAMINATION: Blood pressure 101/56, pulse of 99, temperature 98.1, he is 95% on 2 L nasal cannula. General description is an elderly male, lying in bed in no distress. RESPIRATORY SYSTEM: Unlabored breathing, clear to auscultation anteriorly. HEART: S1, S2. Regular rate and rhythm. ABDOMEN: Soft, no tenderness. Right leg did have swelling, minimal redness. Left foot toes with minimal redness and some cellulitis. LABS: Creatinine is 3.59 with iron of 3.8. DIAGNOSTIC IMPRESSION AND PLAN: Patient with right lower extremity cellulitis. Patient on cefazolin has been switched to Rocephin by admitting to continue and monitor clinical course closely. Continue supportive care. MMODL / IJN: [id number] /
[2020-01-31 20:35] LABS: Glucose,Whole Blood 66 mg/dL (75-99)
[2020-01-31] MEDS: MONTELUKAST 10 MG TAB PO SCH (20:49)
[2020-01-31] MEDS: TAMSULOSIN 0.4 MG CAP.ER.24H PO SCH (20:49)
[2020-01-31 20:51] LABS: Glucose,Whole Blood 62 mg/dL (75-99)
[2020-01-31 21:06] LABS: Glucose,Whole Blood 67 mg/dL (75-99)
[2020-01-31] MEDS ORDERED: DEXTROSE 50% SYRINGE 50 ML IVP ONE (21:08)
[2020-01-31 21:22] LABS: Glucose,Whole Blood 98 mg/dL (75-99)
--- NOTE | 2020-01-31 22:18 | PN ---
PROGRESS NOTE This patient is a white male who has delirium due to metabolic encephalopathy. Continue his current medications. Echocardiogram 20% to 25%, moderate aortic stenosis. He is on Lasix drip, Zaroxolyn, dobutamine. He had some improvement in his urine output. He is a little less responsive today than he was yesterday. Metabolic encephalopathy per Neurology. He has atrial fibrillation. Medications are Coumadin. Diabetes under better control. CARDIOVASCULAR: S1, S2. LUNGS: Clear. GI: Soft. HEMATOLOGY: Negative Homans. Continue Lasix, dobutamine. Continue Accu-Chek protocol. Continue systolic heart failure, chronic renal disease, cardiomyopathy, urinary tract infection. MMODL / IJN: [id number] /
[2020-02-01 01:30] LABS: Glucose,Whole Blood 72 mg/dL (75-99)
[2020-02-01] MEDS: IPRATROPIUM-ALBUTEROL 3 ML NEB INHALATION PRN (01:53)
[2020-02-01 02:15] LABS: Glucose,Whole Blood 111 mg/dL (75-99)
[2020-02-01] MEDS: FUROSEMIDE 100 MG in SODIUM CHLORIDE 0.9% 90 ML IV SCH (02:30)
[2020-02-01 03:13] LABS: Calcium 8.6 mg/dL (8.4-10.2); Potassium 4.1 mmol/L (3.5-5.1)
[2020-02-01 06:12] LABS: Glucose,Whole Blood 82 mg/dL (75-99)
[2020-02-01] MEDS: INSULIN ASPART (NovoLOG) 100 UNIT/ML VIAL SQ SCH ×4 (06:13→20:49)
[2020-02-01] MEDS: CARBIDOPA-LEVODOPA 10-100 MG 1 EACH TAB PO SCH ×2 (07:37→07:38)
[2020-02-01] MEDS: METOLAZONE 5 MG TAB PO SCH ×2 (07:37→20:37)
[2020-02-01] MEDS: CALCITRIOL 0.25 MCG CAP PO SCH (07:38)
[2020-02-01] MEDS: CARVEDILOL 3.125 MG TAB PO SCH ×2 (07:38→20:37)
[2020-02-01] MEDS: FAMOTIDINE 20 MG TAB PO SCH (07:38)
[2020-02-01] MEDS: SENNOSIDES 8.6 MG TAB PO SCH ×2 (07:38→20:37)
[2020-02-01] MEDS: ISOSORBIDE MONONITRATE ER 15 MG TAB PO SCH (07:38)
[2020-02-01] MEDS: IPRATROPIUM-ALBUTEROL 3 ML NEB INHALATION SCH ×5 (07:52→23:31)
[2020-02-01 08:14] LABS: Glucose,Whole Blood 126 mg/dL (75-99)
[2020-02-01] MEDS ORDERED: GABAPENTIN 300 MG CAP PO SCH (09:00)
[2020-02-01] MEDS: SODIUM FERRIC GLUCONAT-SUCROSE 125 MG in SODIUM CHLORIDE 0.9% 100 ML IVPB SCH (11:13)
[2020-02-01 11:26] LABS: Glucose,Whole Blood 123 mg/dL (75-99)
--- NOTE | 2020-02-01 12:03 | P.PN ---
Subjective Patient is seen in follow-up for acute kidney injury on chronic any disease. Patient has chronic kidney disease stage IV with baseline creatinine in the range of 2.2-2.4. Renal function fairly stable. He is currently maintained on dobutamine and Lasix drip. Urine output near 1.3 L the last 24 hours. Still quite edematous. Vital signs are stable. General: The patient appeared well nourished and normally developed. HEENT: Head exam is unremarkable. Neck is without jugular venous distension. LUNGS: Breath sounds decreased. HEART: Rate and Rhythm are regular. ABDOMEN: Soft, nontender. EXTREMITITES: 2+ edema. Objective - Vital Signs Vital signs: Vital Signs Temp 98.4 F 02/01/20 07:26 Pulse 98 02/01/20 11:27 Resp 18 02/01/20 08:00 BP 107/54 02/01/20 07:26 Pulse Ox 97 02/01/20 07:26 Intake & Output 01/31/20 02/01/20 02/01/20 18:59 06:59 18:59 Intake Total 280 400 236 Output Total 600 750 350 Balance -320 -350 -114 Weight 97.5 kg Intake: Intake, IV Titration 100 250 Amount DOBUTamine DRIP 500 mg In 250 Dextrose/Water 1 250ml. bag @ 2.5 MCG/KG/MIN 7. 365 mls/hr IV .Q24H [facility] Rx#:[id number] Furosemide 100 mg In 100 Sodium Chloride 0.9% 90 ml @ 15 MG/HR 15 mls/hr IV .Q6H40M [facility] Rx#: [id number] Oral 180 150 236 Output: Urine 600 750 350 Other: Voiding Method Indwelling Catheter Indwelling Catheter Indwelling Catheter # Bowel Movements 1 - Labs CBC & Chem 7: 01/30/20 05:29 02/01/20 02:22 Labs: Abnormal Lab Results - Last 24 Hours (Table) 01/31/20 01/31/20 01/31/20 Range/Units 16:12 20:34 20:49 BUN (9-20) mg/dL Creatinine (0.66-1.25) mg/dL POC Glucose (mg/dL) 107 H 66 L 62 L (75-99) mg/dL 01/31/20 02/01/20 02/01/20 Range/Units 21:05 01:29 02:13 BUN (9-20) mg/dL Creatinine (0.66-1.25) mg/dL POC Glucose (mg/dL) 67 L 72 L 111 H (75-99) mg/dL 02/01/20 02/01/20 02/01/20 Range/Units 02:22 08:13 11:24 BUN 72 H (9-20) mg/dL Creatinine 3.67 H (0.66-1.25) mg/dL POC Glucose (mg/dL) 126 H 123 H (75-99) mg/dL Microbiology - Last 24 Hours (Table) 01/30/20 16:22 Urine Culture - Final Urine,Catheterized Assessment and Plan Plan: Assessment: 1. Acute kidney injury secondary to ATN secondary to cardiorenal syndrome. Renal function slightly worse due to diuresis. Creatinine 3.67 today. 2. Chronic kidney disease stage IV with baseline creatinine in the range of 2.2-2.4 secondary to diabetic kidney disease. 3. Acute on chronic systolic CHF with ejection fraction of 25-30% with moderate aortic stenosis, moderate to severe mitral regurgitation, severe tricuspid regurgitation and severe pulmonary hypertension. 4. Volume overload. 5. Insulin-dependent diabetes mellitus. 6. Chronic kidney disease mineral bone disease maintained on calcitriol. 7. Anemia of chronic kidney disease maintained on Aranesp. Severe iron deficiency noted. 8. Chronic kidney disease mineral bone disease maintained on calcitriol. 9. Right lower extremity cellulitis maintained on antibiotics. Infectious disease following. Plan: Maintain Lasix drip at 15 mL an hour. Increase metolazone to 5 mg twice daily. Maintain dopamine and dobutamine per cardiology. Low-salt diet and 1200 mL fluid restriction. IV iron 3 doses. Second dose today. Decreased gabapentin to 300 mg once daily. Repeat electrolytes in the morning. Continue to assess on daily basis for need for renal replacement therapy.
[2020-02-01] MEDS: INSULIN DETEMIR (LEVEMIR) 100 UNIT/ML SYR SQ SCH ×2 (12:11→20:49)
[2020-02-01] MEDS: DOBUTamine DRIP 500 MG in DEXTROSE/WATER 1 250ML.BAG IV SCH (12:14)
--- NOTE | 2020-02-01 13:00 | P.PN ---
Subjective Progress Note Date: 02/01/20 Principal diagnosis: Acute on chronic hypoxic respiratory failure Acute on chronic heart failure related to systolic heart failure Left foot with inflammation involving toes Bilateral pleural effusion Bilateral basal atelectasis COPD without exacerbation Severe leg uncontrolled diabetes with chronic complication with worsening Chronic atrial fibrillation Coagulopathy with elevated PT/INR, Coumadin is on hold Stage IV chronic renal failure 02/01/2020, patient seen eval examined during the rounds, he remains afebrile, hemodynamic status stable however the blood pressure continue be on the low side oxygen saturation is 98% on 2 L, patient remains on breathing treatments and broad-spectrum antibiotics, do vitamin have been on hold due to tachycardia however remains on Lasix drip, Coumadin remains on hold recommend to check on a daily basis and resume Coumadin once is okay from cardiovascular services 01/31/2020, patient seen evponcho examined during the rounds has history of oxygen breathing status stable, saturation is 90-93%, patient has been on dobutamine an d dopamine and Lasix strip, INR is coming down, BUN/creatinine slightly up This is a 79-year-old male who was seen evaluated examined on third floor, patient came into the hospital with progressive shortness of breath associated with last 1-2 weeks with increased swelling progressively from the 4 extremities to mid abdominal level in addition patient appears to be having diabetic foot infection with edema and redness in the toes as well in the left foot, patient is arousable but tired on 3 L oxygen, patient is to be started on Lasix drip along with dobutamine drip, patient has a history of COPD chronic systolic heart failure chronic atrial fibrillation diabetes along with chronic renal failure stage IV, currently patient is on WelChol dilators in the form of DuoNeb, ID service has been requested for antibiotics, his chest x-ray consistent with congestive heart failure fluid overload and pulmonary edema in addition to his interstitial edema and small bilateral pleural effusion Objective - Vital Signs Vital signs: Vital Signs Temp 97.9 F 02/01/20 12:00 Pulse 113 H 02/01/20 12:00 Resp 18 02/01/20 12:00 BP 108/77 02/01/20 12:00 Pulse Ox 98 02/01/20 12:00 Intake & Output 01/31/20 02/01/20 02/01/20 18:59 06:59 18:59 Intake Total 280 400 236 Output Total 600 750 350 Balance -320 -350 -114 Weight 97.5 kg Intake: Intake, IV Titration 100 250 Amount DOBUTamine DRIP 500 mg In 250 Dextrose/Water 1 250ml. bag @ 2.5 MCG/KG/MIN 7. 365 mls/hr IV .Q24H [facility] Rx#:[id number] Furosemide 100 mg In 100 Sodium Chloride 0.9% 90 ml @ 15 MG/HR 15 mls/hr IV .Q6H40M [facility] Rx#: [id number] Oral 180 150 236 Output: Urine 600 750 350 Other: Voiding Method Indwelling Catheter Indwelling Catheter Indwelling Catheter # Bowel Movements 1 - Exam - Constitutional General appearance: disheveled, mild distress, morbidly obese - EENT Eyes: EOMI, PERRLA Ears: bilateral: normal - Neck Neck: normal ROM Carotids: bilateral: upstroke normal - Respiratory Respiratory: bilateral: diminished, dullness, rales (At the bases), negative: CTA, rhonchi, wheezing, prolonged expiration - Cardiovascular Rhythm: regular Heart sounds: normal: S1, S2 - Gastrointestinal General gastrointestinal: normal bowel sounds, soft - Musculoskeletal Musculoskeletal: generalized weakness, strength equal bilaterally - Psychiatric Psychiatric: A&O x's 3, appropriate affect, intact judgment & insight Edema involving the lower extremity up to the abdominal level, in addition left diabetic foot involvement of the toes - Labs CBC & Chem 7: 01/30/20 05:29 02/01/20 02:22 Labs: Abnormal Lab Results - Last 24 Hours (Table) 01/31/20 01/31/20 01/31/20 Range/Units 16:12 20:34 20:49 BUN (9-20) mg/dL Creatinine (0.66-1.25) mg/dL POC Glucose (mg/dL) 107 H 66 L 62 L (75-99) mg/dL 01/31/20 02/01/20 02/01/20 Range/Units 21:05 01:29 02:13 BUN (9-20) mg/dL Creatinine (0.66-1.25) mg/dL POC Glucose (mg/dL) 67 L 72 L 111 H (75-99) mg/dL 02/01/20 02/01/20 02/01/20 Range/Units 02:22 08:13 11:24 BUN 72 H (9-20) mg/dL Creatinine 3.67 H (0.66-1.25) mg/dL POC Glucose (mg/dL) 126 H 123 H (75-99) mg/dL Microbiology - Last 24 Hours (Table) 01/30/20 16:22 Urine Culture - Final Urine,Catheterized Assessment and Plan Assessment: Acute on chronic hypoxic respiratory failure Acute on chronic heart failure related to systolic heart failure Left foot with inflammation involving toes Bilateral pleural effusion Bilateral basal atelectasis COPD without exacerbation Severe leg uncontrolled diabetes with chronic complication with worsening Chronic atrial fibrillation Coagulopathy with elevated PT/INR, Coumadin is on hold Stage IV chronic renal failure Plan: Continue bronchodilators Continue oxygen 2 L nasal cannula oxygen saturation is stable No need to start steroids now Broad-spectrum antibiotics as per infectious disease recommendation Agree with inotropes and aggressive generalized diuresis with Lasix As far as pleural effusion is concerned will monitor and observe no plans for thoracentesis Monitor renal functions and electrolytes closely Continue to hold Coumadin for now Further recommendations pending plan of care as per clinical response of patient Time with Patient: Greater than 30
--- NOTE | 2020-02-01 13:06 | P.PN ---
Subjective Progress Note Date: 02/01/20 Principal diagnosis: CHF This is an 79-year-old gentleman admitted to the hospital with acute exacerbation of systolic congestive heart failure, he also has a urinary tract infection. Patient has a documented nonischemic cardiomyopathy with an ejection fraction of 20-25% with moderate aortic stenosis. He was initiated on a Lasix drip, he also continues to be on a dopamine and dobutamine drip at this time. The patient was seen and examined this morning, his weight is down 1 kg today and he continues to put out good amounts of urine. Sodium 137, potassium 4.1, BUN 72, creatinine 3.6, magnesium 2.0. Objective - Vital Signs Vital signs: Vital Signs Temp 97.9 F 02/01/20 12:00 Pulse 113 H 02/01/20 12:00 Resp 18 02/01/20 12:00 BP 108/77 02/01/20 12:00 Pulse Ox 98 02/01/20 12:00 Intake & Output 01/31/20 02/01/20 02/01/20 18:59 06:59 18:59 Intake Total 280 400 236 Output Total 600 750 350 Balance -320 -350 -114 Weight 97.5 kg Intake: Intake, IV Titration 100 250 Amount DOBUTamine DRIP 500 mg In 250 Dextrose/Water 1 250ml. bag @ 2.5 MCG/KG/MIN 7. 365 mls/hr IV .Q24H [facility] Rx#:[id number] Furosemide 100 mg In 100 Sodium Chloride 0.9% 90 ml @ 15 MG/HR 15 mls/hr IV .Q6H40M [facility] Rx#: [id number] Oral 180 150 236 Output: Urine 600 750 350 Other: Voiding Method Indwelling Catheter Indwelling Catheter Indwelling Catheter # Bowel Movements 1 - Exam PHYSICAL EXAMINATION: GENERAL: 79-year-old gentleman in no acute distress at the time of my examination HEENT: Head is atraumatic, normocephalic. Pupils equal, round. Sclera anicteric. Conjunctiva are clear. Mucous membranes of the mouth are moist. Neck is supple. There is no elevated jugular venous pressure. No carotid bruit is heard. HEART EXAMINATION: S1 and S2 1 systolic ejection murmur is heard CHEST EXAMINATION: Lungs reveal diminished air entry to the bases bilaterally ABDOMEN: Soft, nontender. Bowel sounds are heard. No organomegaly noted. EXTREMITIES: 2+ peripheral pulses with 2+ evidence of peripheral edema . Redness noted to the right lower extremity. NEUROLOGIC patient is awake, alert and oriented 3 . . - Labs CBC & Chem 7: 01/30/20 05:29 02/01/20 02:22 Labs: Abnormal Lab Results - Last 24 Hours (Table) 01/31/20 01/31/20 01/31/20 Range/Units 16:12 20:34 20:49 BUN (9-20) mg/dL Creatinine (0.66-1.25) mg/dL POC Glucose (mg/dL) 107 H 66 L 62 L (75-99) mg/dL 01/31/20 02/01/20 02/01/20 Range/Units 21:05 01:29 02:13 BUN (9-20) mg/dL Creatinine (0.66-1.25) mg/dL POC Glucose (mg/dL) 67 L 72 L 111 H (75-99) mg/dL 02/01/20 02/01/20 02/01/20 Range/Units 02:22 08:13 11:24 BUN 72 H (9-20) mg/dL Creatinine 3.67 H (0.66-1.25) mg/dL POC Glucose (mg/dL) 126 H 123 H (75-99) mg/dL Microbiology - Last 24 Hours (Table) 01/30/20 16:22 Urine Culture - Final Urine,Catheterized Assessment and Plan Plan: Assessment and plan #1 acute on chronic systolic congestive heart failure, documented ejection fraction 25-30% with moderate aortic stenosis, moderate to severe mitral regurg and severe tricuspid regurg with severe pulmonary hypertension. #2 acute on chronic kidney injury #3 diabetes #4 hypertension #5 hyperlipidemia #6 anemia #7 right lower extremity cellulitis maintained on antibiotics Plan From cardiology's perspective, we would recommend continuing current Lasix drip at 15 mg per hour, continue dopamine and dobutamine, continue to maintain the intake and output along with daily weights and daily lytes BUN and creatinine. DNP note has been reviewed, I agree with a documented findings and plan of care. Patient was seen and examined.
[2020-02-01 16:39] LABS: Glucose,Whole Blood 114 mg/dL (75-99)
[2020-02-01 20:00] LABS: Glucose,Whole Blood 138 mg/dL (75-99)
[2020-02-01] MEDS: MONTELUKAST 10 MG TAB PO SCH (20:37)
[2020-02-01] MEDS: TAMSULOSIN 0.4 MG CAP.ER.24H PO SCH (20:37)
--- NOTE | 2020-02-01 21:40 | PN ---
PROGRESS NOTE This 79-year-old white male is extremely fatigued, disoriented, lethargic, with chronic systolic CHF, UTI, documented cardiomyopathy, ejection fraction 20% to 25%, moderate aortic stenosis and worsening renal failure. on a Lasix drip. Continues to be on dopamine and dobutamine drip at this time. Weight is down 1 kg today. Continues to put out good amounts of urine. He is extremely confused. Sodium 137, potassium 4.1, BUN of 72, creatinine 3.67, magnesium 2.0. Temperature 97.9, pulse 113, respiratory rate 16-20, blood pressure 108/77, oxygen 98. CARDIOVASCULAR: S1, S2. LUNGS: Scattered wheeze. HEMATOLOGY: Negative Homans. PSYCH: Fair mood and affect. NEUROLOGIC: Alert and oriented x zero. Hemoglobin is 9, white count 9.9. ASSESSMENT: 1. Acute on chronic systolic heart failure, poor ejection fraction. 2. Moderate aortic stenosis. 3. Severe mitral regurgitation. 4. Severe tricuspid regurgitation. 5. Acute on chronic kidney injury. 6. Diabetes. 7. Hypertension. 8. Dyslipidemia. 9. Anemia. 10.Right lower extremity cellulitis. Continue Lasix drip, dobutamine and dopamine. Stop medicines that affect neuropathy. Follow up in next 24-48 hours. Prognosis guarded. MMODL / IJN: [id number] /
[2020-02-01 22:18] LABS: Glucose,Whole Blood 146 mg/dL (75-99)
--- NOTE | 2020-02-01 22:30 | PN ---
PROGRESS NOTE DATE OF SERVICE: 02/01/2020 REASON FOR FOLLOWUP: Right lower extremity cellulitis. INTERVAL HISTORY: The patient is currently afebrile. The patient is breathing comfortably. Denies having any chest pain. Occasional cough. No abdominal pain or pain to the lower extremity. PHYSICAL EXAMINATION: Blood pressure 107/68, pulse of 87, temperature 98.3. He is 97% on 2 L nasal cannula. General description is an elderly male lying in bed in no distress. RESPIRATORY SYSTEM: Unlabored breathing. Clear to auscultation anteriorly. HEART: S1, S2. Regular rate and rhythm. ABDOMEN: Soft. No tenderness. Right leg swelling persists. Redness slightly decreased. LABS: Creatinine 3.67. DIAGNOSTIC IMPRESSION AND PLAN: Patient with acute right lower extremity cellulitis. Patient is currently covered with Rocephin; to continue. Continue with diuretics per Cardiology and continue with supportive care. MMODL / IJN: [id number] /
[2020-02-01 22:39] LABS: ABG Base Excess -1.3 mmol/L; ABG HCO3 24 mmol/L (21-25); ABG Oxygen Saturation 99.9 % (94-97); ABG PCO2 44 mmHg (35-45); ABG PH 7.35 (7.35-7.45); ABG PO2 261 mmHg (83-108); ABG TCO2 26 mmol/L (19-24); Allen Test Performed? Yes
--- NOTE | 2020-02-01 22:48 | XR ---
EXAMINATION TYPE: XR chest 1V portable DATE OF EXAM: 02/01/2020 COMPARISON: 01/29/2020 HISTORY: Short of breath TECHNIQUE: Single view FINDINGS: Heart is enlarged. There is blunting of the costophrenic angles more on the right side. The re is pulmonary vascular congestion. There is left axillary pacemaker. IMPRESSION: There is congestive heart failure with increased right pleural effusion compared to last exam.
[2020-02-01 23:01] LABS: Basophils % (A) 0 %; Eosinophils # (A) 0.1 k/uL (0-0.7); Eosinophils % (A) 1 %; HCT 31.4 % (39.0-53.0); HGB 9.5 gm/dL (13.0-17.5); Hypochromasia Moderate; Lymphocytes # (A) 0.5 k/uL (1.0-4.8); Lymphocytes % (A) 6 %; MCH 28.7 pg (25.0-35.0); MCHC 30.4 g/dL (31.0-37.0); MCV 94.3 fL (80.0-100.0); Mean Platelet Volume 7.9; Monocytes # (A) 0.4 k/uL (0-1.0); Monocytes % (A) 5 %; Neutrophils # (A) 8.6 k/uL (1.3-7.7); Neutrophils % (A) 87 %; Platelet Count 150 k/uL (150-450); RBC 3.32 m/uL (4.30-5.90); RDW 15.8 % (11.5-15.5); WBC 9.8 k/uL (3.8-10.6)
[2020-02-01 23:02] LABS: INR 2.6 (<1.2)
[2020-02-01 23:17] LABS: Albumin 3.2 g/dL (3.5-5.0); Calcium 8.6 mg/dL (8.4-10.2); Potassium 4.4 mmol/L (3.5-5.1); Total Bilirubin 0.5 mg/dL (0.2-1.3); Total Protein 6.1 g/dL (6.3-8.2)
--- NOTE | 2020-02-01 23:29 | XR ---
EXAMINATION TYPE: XR chest 1V portable DATE OF EXAM: 02/01/2020 COMPARISON: Today HISTORY: Tube placement TECHNIQUE: Single view FINDINGS: There is nasogastric tube with the tip well below the diaphragm and probably looped in the stomach. There is pulmonary vascular congestion. There is an enlarged heart with bilateral pleural ef fusions. There is infiltrate right lower lobe. There is left axillary pacemaker. IMPRESSION: Congestive heart failure with pleural effusions larger on the right side. Right lower lob e pneumonia is possible. No significant change compared to exam one hour ago.
[2020-02-02] MEDS: PANTOPRAZOLE 40 MG/10 ML VIAL IVP SCH ×3 (00:21→20:53)
[2020-02-02] MEDS: IPRATROPIUM-ALBUTEROL 3 ML NEB INHALATION PRN (03:27)
[2020-02-02 05:45] LABS: Glucose,Whole Blood 157 mg/dL (75-99)
[2020-02-02] MEDS: INSULIN ASPART (NovoLOG) 100 UNIT/ML VIAL SQ SCH ×4 (06:26→20:54)
[2020-02-02] MEDS: FUROSEMIDE 100 MG in SODIUM CHLORIDE 0.9% 90 ML IV SCH ×3 (06:26→21:28)
[2020-02-02 07:05] LABS: Albumin 3.1 g/dL (3.5-5.0); Calcium 8.3 mg/dL (8.4-10.2); Magnesium 1.9 mg/dL (1.6-2.3); Potassium 4.4 mmol/L (3.5-5.1); Total Bilirubin 0.5 mg/dL (0.2-1.3)
[2020-02-02] MEDS: IPRATROPIUM-ALBUTEROL 3 ML NEB INHALATION SCH ×4 (07:16→20:15)
[2020-02-02 07:32] LABS: Basophils % (A) 0 %; Eosinophils # (A) 0.2 k/uL (0-0.7); Eosinophils % (A) 1 %; HCT 30.2 % (39.0-53.0); HGB 9.8 gm/dL (13.0-17.5); Hypochromasia Marked; Lymphocytes # (A) 1.5 k/uL (1.0-4.8); Lymphocytes % (A) 10 %; MCHC 32.5 g/dL (31.0-37.0); MCV 95.2 fL (80.0-100.0); Mean Platelet Volume 8.3; Monocytes # (A) 2.6 k/uL (0-1.0); Monocytes % (A) 17 %; Neutrophils # (A) 10.8 k/uL (1.3-7.7); Neutrophils % (A) 71 %; Platelet Count 194 k/uL (150-450); RBC 3.17 m/uL (4.30-5.90); RDW 15.7 % (11.5-15.5); WBC 15.3 k/uL (3.8-10.6)
[2020-02-02] MEDS: INSULIN DETEMIR (LEVEMIR) 100 UNIT/ML SYR SQ SCH ×2 (09:05→21:19)
[2020-02-02] MEDS: METOLAZONE 5 MG TAB PO SCH ×2 (09:12→20:55)
[2020-02-02] MEDS: CARBIDOPA-LEVODOPA 10-100 MG 1 EACH TAB PO SCH ×2 (09:12→20:55)
[2020-02-02] MEDS: ISOSORBIDE MONONITRATE ER 15 MG TAB PO SCH (09:12)
[2020-02-02] MEDS: FAMOTIDINE 20 MG TAB PO SCH (09:12)
[2020-02-02] MEDS: CARVEDILOL 3.125 MG TAB PO SCH ×2 (09:12→20:55)
[2020-02-02] MEDS: SENNOSIDES 8.6 MG TAB PO SCH ×2 (09:13→20:55)
[2020-02-02 09:54] LABS: Poikilocytosis (M) Present
[2020-02-02 10:06] LABS: Glucose,Whole Blood 139 mg/dL (75-99)
[2020-02-02] MEDS: SODIUM FERRIC GLUCONAT-SUCROSE 125 MG in SODIUM CHLORIDE 0.9% 100 ML IVPB SCH (10:11)
[2020-02-02] MEDS ORDERED: NALOXONE 0.4 MG/ML 1 ML VIAL IV PRN (10:29)
--- NOTE | 2020-02-02 10:46 | P.PN ---
Subjective Progress Note Date: 02/02/20 Principal diagnosis: CHF This is an 79-year-old gentleman admitted to the hospital with acute exacerbation of systolic congestive heart failure, he also has a urinary tract infection. Patient has a documented nonischemic cardiomyopathy with an ejection fraction of 20-25% with moderate aortic stenosis. He was initiated on a Lasix drip, he also continues to be on a dopamine and dobutamine drip at this time. The patient was seen and examined this morning, his weight is down 1 kg today and he continues to put out good amounts of urine. Sodium 137, potassium 4.1, BUN 72, creatinine 3.6, magnesium 2.0. 02/02/2020 Patient was seen and examined this morning, appears to be more lethargic today. His repeat chest x-ray this morning showed heart failure with an increased ri ght-sided pleural effusion. Blood pressure 126/70 with a heart rate 9200, 97% on 4 L of oxygen. Sodium 139, potassium 4.4, chloride 104, CO2 22, BUN 83, creatinine 3.8. His weight is down today. Patient stool for occult blood is positive, patient looks very pale in color today. His hemoglobin is 9.8 with a white blood cell count of 15.3. He is currently on a Lasix drip and dobutamine. The patient was seen and examined this morning by primary care and the decision was made to transfer for closer observation to the intensive care unit. Objective - Vital Signs Vital signs: Vital Signs Temp 98.2 F 02/02/20 10:10 Pulse 94 02/02/20 10:30 Resp 14 02/02/20 10:30 BP 126/74 02/02/20 10:30 Pulse Ox 98 02/02/20 10:30 Intake & Output 02/01/20 02/02/20 02/02/20 18:59 06:59 18:59 Intake Total 236 100 Output Total 800 1050 300 Balance -564 -950 -300 Weight 92.5 kg Intake: Intake, IV Titration 100 Amount Furosemide 100 mg In 100 Sodium Chloride 0.9% 90 ml @ 15 MG/HR 15 mls/hr IV .Q6H40M [facility] Rx#: [id number] Oral 236 0 Output: Urine 800 1050 300 Uretheral (Porter) 300 Other: Voiding Method Indwelling Catheter Indwelling Catheter Indwelling Catheter - Exam PHYSICAL EXAMINATION: GENERAL: 79-year-old gentleman in no acute distress at the time of my examination HEENT: Head is atraumatic, normocephalic. Pupils equal, round. Sclera anicteric. Conjunctiva are clear. Mucous membranes of the mouth are moist. Neck is supple. There is no elevated jugular venous pressure. No carotid bruit is heard. Skin very pale in color today. HEART EXAMINATION: S1 and S2 1 systolic ejection murmur is heard CHEST EXAMINATION: Lungs reveal diminished air entry to the bases bilaterally ABDOMEN: Soft, nontender. Bowel sounds are heard. No organomegaly noted. EXTREMITIES: 2+ peripheral pulses with 2+ evidence of peripheral edema . Redness noted to the right lower extremity. NEUROLOGIC patient is awake, alert and oriented 2 . Mildly lethargic today. . - Labs CBC & Chem 7: 02/02/20 06:08 02/02/20 06:08 Labs: Abnormal Lab Results - Last 24 Hours (Table) 02/01/20 02/01/20 02/01/20 Range/Units 11:24 16:38 19:57 WBC (3.8-10.6) k/uL RBC (4.30-5.90) m/uL Hgb (13.0-17.5) gm/dL Hct (39.0-53.0) % MCHC (31.0-37.0) g/dL RDW (11.5-15.5) % Neutrophils # (1.3-7.7) k/uL Lymphocytes # (1.0-4.8) k/uL Monocytes # (0-1.0) k/uL PT (9.0-12.0) sec INR (<1.2) ABG pO2 (83-108) mmHg ABG Total CO2 (19-24) mmol/L ABG O2 Saturation (94-97) % BUN (9-20) mg/dL Creatinine (0.66-1.25) mg/dL Glucose (74-99) mg/dL POC Glucose (mg/dL) 123 H 114 H 138 H (75-99) mg/dL Calcium (8.4-10.2) mg/dL Total Protein (6.3-8.2) g/dL Albumin (3.5-5.0) g/dL 02/01/20 02/01/20 02/01/20 Range/Units 22:17 22:36 22:36 WBC (3.8-10.6) k/uL RBC 3.32 L (4.30-5.90) m/uL Hgb 9.5 L (13.0-17.5) gm/dL Hct 31.4 L (39.0-53.0) % MCHC 30.4 L (31.0-37.0) g/dL RDW 15.8 H (11.5-15.5) % Neutrophils # 8.6 H (1.3-7.7) k/uL Lymphocytes # 0.5 L (1.0-4.8) k/uL Monocytes # (0-1.0) k/uL PT 25.0 H (9.0-12.0) sec INR 2.6 H (<1.2) ABG pO2 (83-108) mmHg ABG Total CO2 (19-24) mmol/L ABG O2 Saturation (94-97) % BUN (9-20) mg/dL Creatinine (0.66-1.25) mg/dL Glucose (74-99) mg/dL POC Glucose (mg/dL) 146 H (75-99) mg/dL Calcium (8.4-10.2) mg/dL Total Protein (6.3-8.2) g/dL Albumin (3.5-5.0) g/dL 02/01/20 02/01/20 02/02/20 Range/Units 22:36 22:36 05:42 WBC (3.8-10.6) k/uL RBC (4.30-5.90) m/uL Hgb (13.0-17.5) gm/dL Hct (39.0-53.0) % MCHC (31.0-37.0) g/dL RDW (11.5-15.5) % Neutrophils # (1.3-7.7) k/uL Lymphocytes # (1.0-4.8) k/uL Monocytes # (0-1.0) k/uL PT (9.0-12.0) sec INR (<1.2) ABG pO2 261 H (83-108) mmHg ABG Total CO2 26 H (19-24) mmol/L ABG O2 Saturation 99.9 H (94-97) % BUN 78 H (9-20) mg/dL Creatinine 3.91 H (0.66-1.25) mg/dL Glucose 129 H (74-99) mg/dL POC Glucose (mg/dL) 157 H (75-99) mg/dL Calcium (8.4-10.2) mg/dL Total Protein 6.1 L (6.3-8.2) g/dL Albumin 3.2 L (3.5-5.0) g/dL 02/02/20 02/02/20 02/02/20 Range/Units 06:08 06:08 10:04 WBC 15.3 H (3.8-10.6) k/uL RBC 3.17 L (4.30-5.90) m/uL Hgb 9.8 L (13.0-17.5) gm/dL Hct 30.2 L (39.0-53.0) % MCHC (31.0-37.0) g/dL RDW 15.7 H (11.5-15.5) % Neutrophils # 10.8 H (1.3-7.7) k/uL Lymphocytes # (1.0-4.8) k/uL Monocytes # 2.6 H (0-1.0) k/uL PT (9.0-12.0) sec INR (<1.2) ABG pO2 (83-108) mmHg ABG Total CO2 (19-24) mmol/L ABG O2 Saturation (94-97) % BUN 83 H (9-20) mg/dL Creatinine 3.84 H (0.66-1.25) mg/dL Glucose 135 H (74-99) mg/dL POC Glucose (mg/dL) 139 H (75-99) mg/dL Calcium 8.3 L (8.4-10.2) mg/dL Total Protein 6.0 L (6.3-8.2) g/dL Albumin 3.1 L (3.5-5.0) g/dL Assessment and Plan Plan: Assessment and plan #1 acute on chronic systolic congestive heart failure, documented ejection frac tion 25-30% with moderate aortic stenosis, moderate to severe mitral regurg and severe tricuspid regurg with severe pulmonary hypertension. #2 acute on chronic kidney injury #3 diabetes #4 hypertension #5 hyperlipidemia #6 anemia #7 right lower extremity cellulitis maintained on antibiotics Plan From cardiology's perspective, we would recommend continuing current Lasix drip at 15 mg per hour, continue dobutamine, continue to maintain the intake and output along with daily weights and daily lytes BUN and creatinine. Continue to monitor CBC. Patient is being transferred to the intensive care unit for closer observation. DNP note has been reviewed, I agree with a documented findings and plan of care. Patient was seen and examined.
--- NOTE | 2020-02-02 11:52 | P.PN ---
Subjective Progress Note Date: 02/02/20 This is an 79-year-old gentleman admitted with acute CHF exacerbation, EF of 25- 30% with multiple valvular disease including moderate aortic stenosis, renal failure, right lower extremity cellulitis and multiple other medical issues. During the night patient developed bradycardia with heart rates dropping from 100 to 50s, 12 beat run of V. tach , respiratory distress with wheezing ,projectile vomiting, a-teamed,NG tube placed. Magnesium and potassium levels within normal limits. Abdomen significantly distended with dark drainage from NG tube-positive gastric occult blood. Hemoglobin 9.8. During the night patient also required increasing oxygen bumped up to 4 L nasal cannula, currently maintaining O2 sats in the 90s on 2 L nasal cannula, respiratory rate 24, mild tachycardia. Systolic blood pressure in the 120s. Afebrile, elevated WBC 15.3. BUN 83, creatinine 3.84. CO2 22. Increased lethargy, opens eyes to name. Chest x-ray performed last night reporting CHF with larger, increased pleural effusion on the right side, possible right lower lobe pneumonia.Maintained on Lasix and dobutamine drips. Objective - Vital Signs Vital signs: Vital Signs Temp 98.2 F 02/02/20 10:10 Pulse 94 02/02/20 10:30 Resp 14 02/02/20 10:30 BP 126/74 02/02/20 10:30 Pulse Ox 98 02/02/20 10:30 Intake & Output 02/01/20 02/02/20 02/02/20 18:59 06:59 18:59 Intake Total 236 100 Output Total 800 1050 300 Balance -564 -950 -300 Weight 92.5 kg Intake: Intake, IV Titration 100 Amount Furosemide 100 mg In 100 Sodium Chloride 0.9% 90 ml @ 15 MG/HR 15 mls/hr IV .Q6H40M [facility] Rx#: [id number] Oral 236 0 Output: Urine 800 1050 300 Uretheral (Porter) 300 Other: Voiding Method Indwelling Catheter Indwelling Catheter Indwelling Catheter - Exam PHYSICAL EXAM: VITAL SIGNS: As above GENERAL: Lying in bed, lethargic,opens eyes to name HEENT: Conjunctivae normal. eyes normal. NECK: No JVD. No thyroid enlargement. No LNs CARDIOVASCULAR: S1, S2 regular.systolic murmur RESPIRATION: Abdominal breathing, Breath sounds diminished in the bases. No rhonchi or crackles. Occasional fine expiratory wheezing ABDOMEN: Firm, distended. No guarding. no masses palpable. Hypoactive ,Bowel sounds heard. NG with dark bloody drainage. LEGS: Positive edema, decreased redness right lower leg NERVOUS SYSTEM: Difficult to fully assess. Confused, Alert and oriented 1, opens eyes to name, weak, attempting to follow commands. - Labs CBC & Chem 7: 02/02/20 06:08 02/02/20 06:08 Labs: Abnormal Lab Results - Last 24 Hours (Table) 02/01/20 02/01/20 02/01/20 Range/Units 11:24 16:38 19:57 WBC (3.8-10.6) k/uL RBC (4.30-5.90) m/uL Hgb (13.0-17.5) gm/dL Hct (39.0-53.0) % MCHC (31.0-37.0) g/dL RDW (11.5-15.5) % Neutrophils # (1.3-7.7) k/uL Lymphocytes # (1.0-4.8) k/uL Monocytes # (0-1.0) k/uL PT (9.0-12.0) sec INR (<1.2) ABG pO2 (83-108) mmHg ABG Total CO2 (19-24) mmol/L ABG O2 Saturation (94-97) % BUN (9-20) mg/dL Creatinine (0.66-1.25) mg/dL Glucose (74-99) mg/dL POC Glucose (mg/dL) 123 H 114 H 138 H (75-99) mg/dL Calcium (8.4-10.2) mg/dL Total Protein (6.3-8.2) g/dL Albumin (3.5-5.0) g/dL 02/01/20 02/01/20 02/01/20 Range/Units 22:17 22:36 22:36 WBC (3.8-10.6) k/uL RBC 3.32 L (4.30-5.90) m/uL Hgb 9.5 L (13.0-17.5) gm/dL Hct 31.4 L (39.0-53.0) % MCHC 30.4 L (31.0-37.0) g/dL RDW 15.8 H (11.5-15.5) % Neutrophils # 8.6 H (1.3-7.7) k/uL Lymphocytes # 0.5 L (1.0-4.8) k/uL Monocytes # (0-1.0) k/uL PT 25.0 H (9.0-12.0) sec INR 2.6 H (<1.2) ABG pO2 (83-108) mmHg ABG Total CO2 (19-24) mmol/L ABG O2 Saturation (94-97) % BUN (9-20) mg/dL Creatinine (0.66-1.25) mg/dL Glucose (74-99) mg/dL POC Glucose (mg/dL) 146 H (75-99) mg/dL Calcium (8.4-10.2) mg/dL Total Protein (6.3-8.2) g/dL Albumin (3.5-5.0) g/dL 02/01/20 02/01/20 02/02/20 Range/Units 22:36 22:36 05:42 WBC (3.8-10.6) k/uL RBC (4.30-5.90) m/uL Hgb (13.0-17.5) gm/dL Hct (39.0-53.0) % MCHC (31.0-37.0) g/dL RDW (11.5-15.5) % Neutrophils # (1.3-7.7) k/uL Lymphocytes # (1.0-4.8) k/uL Monocytes # (0-1.0) k/uL PT (9.0-12.0) sec INR (<1.2) ABG pO2 261 H (83-108) mmHg ABG Total CO2 26 H (19-24) mmol/L ABG O2 Saturation 99.9 H (94-97) % BUN 78 H (9-20) mg/dL Creatinine 3.91 H (0.66-1.25) mg/dL Glucose 129 H (74-99) mg/dL POC Glucose (mg/dL) 157 H (75-99) mg/dL Calcium (8.4-10.2) mg/dL Total Protein 6.1 L (6.3-8.2) g/dL Albumin 3.2 L (3.5-5.0) g/dL 02/02/20 02/02/20 02/02/20 Range/Units 06:08 06:08 10:04 WBC 15.3 H (3.8-10.6) k/uL RBC 3.17 L (4.30-5.90) m/uL Hgb 9.8 L (13.0-17.5) gm/dL Hct 30.2 L (39.0-53.0) % MCHC (31.0-37.0) g/dL RDW 15.7 H (11.5-15.5) % Neutrophils # 10.8 H (1.3-7.7) k/uL Lymphocytes # (1.0-4.8) k/uL Monocytes # 2.6 H (0-1.0) k/uL PT (9.0-12.0) sec INR (<1.2) ABG pO2 (83-108) mmHg ABG Total CO2 (19-24) mmol/L ABG O2 Saturation (94-97) % BUN 83 H (9-20) mg/dL Creatinine 3.84 H (0.66-1.25) mg/dL Glucose 135 H (74-99) mg/dL POC Glucose (mg/dL) 139 H (75-99) mg/dL Calcium 8.3 L (8.4-10.2) mg/dL Total Protein 6.0 L (6.3-8.2) g/dL Albumin 3.1 L (3.5-5.0) g/dL Assessment and Plan Assessment: Acute on chronic systolic heart failure exacerbation, EF 20-25% Increasing large right pleural effusion in a patient with bilateral pleural effusions Acute hypoxic, hypercapnic respiratory failure secondary to the above Bilateral basal atelectasis GI bleed with NG tube drainage positive gastric occult blood Coagulopathy with elevated PT/INR, Coumadin on hold Nonsustained V. tach Acute metabolic encephalopathy multifactorial, secondary to the above Chronic atrial fibrillation Moderate aortic stenosis Severe mitral regurgitation Severe tricuspid regurgitation Acute on chronic renal failure stage 4. Acute secondary to ATN related to cardiorenal syndrome. Anemia of chronic kidney disease Diabetes mellitus Hypertension Dyslipidemia Acute right lower extremity cellulitis Plan: Continue on current medication regime ,monitoring and symptomatic treatment. Significant decline clinically, transferred to ICU. Stat CT of the belly without contrast. Further GI recommendations pending . Surgery-Dr. Person consulted. 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 Prognosis guarded given multiple complex medical issues. The impression and plan of care has been dictated as directed. : I performed a history and examination of this patient, discussed the same with the dictator. I agree with the dictator's note ,documented as a scribe. Any additional findings or plans will be noted.
--- NOTE | 2020-02-02 11:53 | CT ---
EXAMINATION TYPE: CT abdomen pelvis wo con DATE OF EXAM: 02/02/2020 COMPARISON: 08/10/2017 HISTORY: Abdominal pain CT DLP: 1297.2 mGycm Automated exposure control for dose reduction was used. TECHNIQUE: Helical acquisition of images was performed from the lung bases through the pelvis. FINDINGS: Exam severely limited by motion artifact. LUNG BASES: Bilateral infiltrate and pleural effusion seen with cardiac leads and cardiomegaly. LIVER/GB: Artifact severely limits the exam there appears to be evidence of a 7 mm gallstone. Assessm ent of the organs is nearly nondiagnostic due to motion. PANCREAS: No significant abnormality is seen. SPLEEN: No significant abnormality is seen. ADRENALS: No significant abnormality is seen. KIDNEYS: No significant abnormality is seen. BLADDER: Porter catheter noted in a decompressed bladder.. ADENOPATHY: None visualized. OSSEOUS STRUCTURES: Hypertrophic and degenerative changes of the spine. Arthropathy of the hips. Cur vature the spine may be positional. Multilevel canal stenosis and foraminal encroachment suspected. BOWEL: Stomach is distended and there is an NG tube containing air and particulate matter. Artifact limits anterior abdominal wall assessment. Overall bowel gas pattern nonspecific. Correlate for gastr oparesis. Less likely consideration gastric outlet obstruction. OTHER: Visualized aorta of normal caliber with atherosclerotic changes. No sizable free fluid collect ion. Trace amount of fluid in the right lower quadrant. IMPRESSION: 1. Bilateral pleural effusions and basilar consolidation. 2. NG tube is seen with the stomach remains distended with both air and fluid. Correlate for gastropa resis. Gastric outlet obstruction not excluded. 2. Trace amount of fluid seen in the right lower quadrant.
--- NOTE | 2020-02-02 12:07 | P.PN ---
Subjective Patient is seen in follow-up for acute kidney injury on chronic any disease. Patient has chronic kidney disease stage IV with baseline creatinine in the range of 2.2-2.4. Renal function fairly stable. He is currently maintained on dobutamine and Lasix drip. Urine output near 1.8 L the last 24 hours. Edema improved. Yesterday the patient developed projectile vomiting and was transferred to the intensive care unit. He currently has an NG tube. CAT scan pending. Vital signs are stable. General: The patient appeared well nourished and normally developed. HEENT: Head exam is unremarkable. Neck is without jugular venous distension. NG tube noted. LUNGS: Breath sounds decreased. HEART: Rate and Rhythm are regular. ABDOMEN: Soft, nontender. EXTREMITITES: 1+ edema. Objective - Vital Signs Vital signs: Vital Signs Temp 98.2 F 02/02/20 10:10 Pulse 91 02/02/20 11:37 Resp 24 02/02/20 11:37 BP 130/62 02/02/20 11:00 Pulse Ox 98 02/02/20 11:00 Intake & Output 02/01/20 02/02/20 02/02/20 18:59 06:59 18:59 Intake Total 236 100 110 Output Total 800 1050 700 Balance -564 950 -590 Weight 92.5 kg 92.5 kg Intake: IV 10 .9 @ 20 10 Intake, IV Titration 100 100 Amount Furosemide 100 mg In 100 Sodium Chloride 0.9% 90 ml @ 15 MG/HR 15 mls/hr IV .Q6H40M [facility] Rx#: [id number] cefTRIAXone 1 gm In 100 Sodium Chloride 0.9% 50 ml @ 100 mls/hr IVPB Q24HR [facility] Rx#:[id number] Oral 236 0 Output: Urine 800 1050 700 Uretheral (Porter) 600 Other: Voiding Method Indwelling Catheter Indwelling Catheter Indwelling Catheter - Labs CBC & Chem 7: 02/02/20 06:08 02/02/20 06:08 Labs: Abnormal Lab Results - Last 24 Hours (Table) 02/01/20 02/01/20 02/01/20 Range/Units 16:38 19:57 22:17 WBC (3.8-10.6) k/uL RBC (4.30-5.90) m/uL Hgb (13.0-17.5) gm/dL Hct (39.0-53.0) % MCHC (31.0-37.0) g/dL RDW (11.5-15.5) % Neutrophils # (1.3-7.7) k/uL Lymphocytes # (1.0-4.8) k/uL Monocytes # (0-1.0) k/uL PT (9.0-12.0) sec INR (<1.2) ABG pO2 (83-108) mmHg ABG Total CO2 (19-24) mmol/L ABG O2 Saturation (94-97) % BUN (9-20) mg/dL Creatinine (0.66-1.25) mg/dL Glucose (74-99) mg/dL POC Glucose (mg/dL) 114 H 138 H 146 H (75-99) mg/dL Calcium (8.4-10.2) mg/dL Total Protein (6.3-8.2) g/dL Albumin (3.5-5.0) g/dL 02/01/20 02/01/20 02/01/20 Range/Units 22:36 22:36 22:36 WBC (3.8-10.6) k/uL RBC 3.32 L (4.30-5.90) m/uL Hgb 9.5 L (13.0-17.5) gm/dL Hct 31.4 L (39.0-53.0) % MCHC 30.4 L (31.0-37.0) g/dL RDW 15.8 H (11.5-15.5) % Neutrophils # 8.6 H (1.3-7.7) k/uL Lymphocytes # 0.5 L (1.0-4.8) k/uL Monocytes # (0-1.0) k/uL PT 25.0 H (9.0-12.0) sec INR 2.6 H (<1.2) ABG pO2 (83-108) mmHg ABG Total CO2 (19-24) mmol/L ABG O2 Saturation (94-97) % BUN 78 H (9-20) mg/dL Creatinine 3.91 H (0.66-1.25) mg/dL Glucose 129 H (74-99) mg/dL POC Glucose (mg/dL) (75-99) mg/dL Calcium (8.4-10.2) mg/dL Total Protein 6.1 L (6.3-8.2) g/dL Albumin 3.2 L (3.5-5.0) g/dL 02/01/20 02/02/20 02/02/20 Range/Units 22:36 05:42 06:08 WBC (3.8-10.6) k/uL RBC (4.30-5.90) m/uL Hgb (13.0-17.5) gm/dL Hct (39.0-53.0) % MCHC (31.0-37.0) g/dL RDW (11.5-15.5) % Neutrophils # (1.3-7.7) k/uL Lymphocytes # (1.0-4.8) k/uL Monocytes # (0-1.0) k/uL PT (9.0-12.0) sec INR (<1.2) ABG pO2 261 H (83-108) mmHg ABG Total CO2 26 H (19-24) mmol/L ABG O2 Saturation 99.9 H (94-97) % BUN 83 H (9-20) mg/dL Creatinine 3.84 H (0.66-1.25) mg/dL Glucose 135 H (74-99) mg/dL POC Glucose (mg/dL) 157 H (75-99) mg/dL Calcium 8.3 L (8.4-10.2) mg/dL Total Protein 6.0 L (6.3-8.2) g/dL Albumin 3.1 L (3.5-5.0) g/dL 02/02/20 02/02/20 Range/Units 06:08 10:04 WBC 15.3 H (3.8-10.6) k/uL RBC 3.17 L (4.30-5.90) m/uL Hgb 9.8 L (13.0-17.5) gm/dL Hct 30.2 L (39.0-53.0) % MCHC (31.0-37.0) g/dL RDW 15.7 H (11.5-15.5) % Neutrophils # 10.8 H (1.3-7.7) k/uL Lymphocytes # (1.0-4.8) k/uL Monocytes # 2.6 H (0-1.0) k/uL PT (9.0-12.0) sec INR (<1.2) ABG pO2 (83-108) mmHg ABG Total CO2 (19-24) mmol/L ABG O2 Saturation (94-97) % BUN (9-20) mg/dL Creatinine (0.66-1.25) mg/dL Glucose (74-99) mg/dL POC Glucose (mg/dL) 139 H (75-99) mg/dL Calcium (8.4-10.2) mg/dL Total Protein (6.3-8.2) g/dL Albumin (3.5-5.0) g/dL Assessment and Plan Plan: Assessment: 1. Acute kidney injury secondary to ATN secondary to cardiorenal syndrome. Renal function slightly worse due to diuresis. Creatinine 3.84 today. 2. Chronic kidney disease stage IV with baseline creatinine in the range of 2.2-2.4 secondary to diabetic kidney disease. 3. Acute on chronic systolic CHF with ejection fraction of 25-30% with moderate aortic stenosis, moderate to severe mitral regurgitation, severe tricuspid regur gitation and severe pulmonary hypertension. 4. Volume overload. 5. Insulin-dependent diabetes mellitus. 6. Chronic kidney disease mineral bone disease maintained on calcitriol. 7. Anemia of chronic kidney disease maintained on Aranesp. Severe iron deficiency noted. 8. Chronic kidney disease mineral bone disease maintained on calcitriol. 9. Right lower extremity cellulitis maintained on antibiotics. Infectious disease following. Plan: Maintain Lasix drip at 15 mL an hour. Continue metolazone 5 mg twice daily. Maintain dopamine and dobutamine per cardiology. IV iron 3 doses. Third dose today. Decreased gabapentin to 300 mg once daily. Repeat electrolytes in the morning. Continue to assess on daily basis for need for renal replacement therapy. Currently the patient is quite unstable. Monitor respiratory status closely. May need ventilator support. Follow-up CAT scan results. Surgery following.
--- NOTE | 2020-02-02 12:29 | P.GSCN ---
History of Present Illness Consult date: 02/02/20 History of present illness: this is an 79-year-old gentleman that is currently admitted to the intensive care unit secondary to increasing shortness of breath, CHF exacerbation and COPD exacerbation. Apparently, over the past 24 hours, patient has had multiple emesis episodes that are described as projectile. There was concern of hematemesis during these episodes. The patient was also noted to become significantly distended in the abdomen during this timeframe. The patient does have decreased mentation and is unable to answer questions at this time. History was received from nursing staff and previous charting. For workup, the patient did recently have a CT of the abdomen and pelvis that did show significant gastric distention, concerning for gastroparesis versus gastric outlet obstruction. There were no other significant changes within the abdomen to explain his current symptoms. Review of Systems ROS unobtainable: due to mental status Past Medical History Past Medical History: Atrial Fibrillation, Heart Failure, Diabetes Mellitus, GERD/Reflux, Hyperlipidemia, Hypertension, Osteoarthritis (OA), Renal Disease Additional Past Medical History / Comment(s): Cardiomyopathy, pulmonary hypertension, pt denies COPD as previously charted, pt no longer has hyperlipidemia-taken off medication, IDDM type II, bilateral feet peripheral neuropathy, recent past L great toe ulcer/osteomylitis-gram negative skin tammie, CKD stage IV-has occluded fistula L arm (never recieved dialysis), UTI with sepsis, chronic back/neck pain,. PUD, Left great toe osteomyelitis - 2017 History of Any Multi-Drug Resistant Organisms: None Reported Past Surgical History: Adenoidectomy, Orthopedic Surgery, Pacemaker, Tonsillectomy Additional Past Surgical History / Comment(s): lumbar facet blocks, lt breast cyst removed as child, bilateral cataract removal with lens implants,. Fistula left upper arm to use for dialysis-never used it-pt's stated "it's been occluded for 5 years", colonoscopy, picc line insertion/since removed. Total right knee replacement 02/2018 Past Anesthesia/Blood Transfusion Reactions: No Reported Reaction Type of Cardiac Device: Permanent Pacemaker Device Placement Date:: 2012 Past Psychological History: No Psychological Hx Reported Additional Psychological History / Comment(s): pt lives with his beckie in a 2 story home that has 1 front step and 12 steps to 2nd level where bedroom is. has 1 pet bird. no outside services recieved and no medical equipment. Pt drives. Smoking Status: Never smoker Past Alcohol Use History: Rare Additional Past Alcohol Use History / Comment(s): STARTED SMOKING 1964, QUIT 1993- 1-2 ppd Past Drug Use History: None Reported - Past Family History Mother Family Medical History: Diabetes Mellitus Additional Family Medical History / Comment(s): type 2 in her 70's Father Family Medical History: Diabetes Mellitus Additional Family Medical History / Comment(s): dm type 2 in his 70's Medications and Allergies Home Medications Medication Instructions Recorded Confirmed Type Isosorbide Mononitrate [Isosorbide 15 mg PO DAILY@0900 11/12/15 01/29/20 History Mononitrate ER] Montelukast [Singulair] 10 mg PO HS 11/12/15 01/29/20 History Calcitriol 0.5 mcg PO SUTH 08/10/17 01/29/20 History INSULIN LISPRO (humaLOG) [humaLOG] See Protocol SQ ACHS 09/22/17 01/29/20 History Carbidopa-Levodopa 10-100 mg 1 tab PO BID 08/08/18 01/29/20 History [Sinemet 10-100 mg] Albuterol Sulfate [Ventolin HFA] 2 puff INHALATION RT-Q6H PRN 01/29/20 01/29/20 History Allopurinol [Zyloprim] 100 mg PO Q12H 01/29/20 01/29/20 History Ammonium Lactate Cream [Lac-Hydrin 1 applic TOPICAL HS 01/29/20 01/29/20 History 12% Cream] Carvedilol [Coreg] 12.5 mg PO BID 01/29/20 01/29/20 History Furosemide [Lasix] 20 mg PO BID 01/29/20 01/29/20 History Ipratropium-Albuterol Nebulize 3 ml INHALATION RT-Q8H PRN 01/29/20 01/29/20 History [Duoneb 0.5 mg-3 mg/3 ml Soln] Potassium Chloride [Klor-Con 10] 10 meq PO DAILY 01/29/20 01/29/20 History Warfarin Sodium [Coumadin] 5 mg PO SUMOWEFR 01/29/20 01/29/20 History Warfarin [Coumadin] 7.5 mg PO TUTHSA 01/29/20 01/29/20 History Zolpidem [Ambien] 10 mg PO HS 01/29/20 01/29/20 History oxyCODONE HCL [oxyCODONE HCL (IR)] 10 mg PO Q8H PRN 01/29/20 01/29/20 History Allergies Allergy/AdvReac Type Severity Reaction Status Date / Time midodrine Allergy Rash/Hives Verified 01/29/20 17:26 sodium bicarbonate Allergy Itching Verified 01/29/20 17:26 Surgical - Exam Osteopathic Statement: *. No significant issues noted on an osteopathic structural exam other than those noted in the History and Physical/Consult. Vital Signs Temp Pulse Resp BP Pulse Ox 97.7 F 79 27 H 121/64 97 01/29/20 14:21 01/29/20 14:21 01/29/20 14:21 01/29/20 14:21 01/29/20 14:21 - General no distress - Eyes PERRL - ENT normal nares, normal mucosa - Neck trachea midline - Respiratory no significant difficulty with respiration - Abdomen soft, distended, no rebound, no guarding Results - Labs 02/02/20 06:08 02/02/20 06:08 Abnormal Lab Results - Last 24 Hours (Table) 02/01/20 02/01/20 02/01/20 Range/Units 16:38 19:57 22:17 WBC (3.8-10.6) k/uL RBC (4.30-5.90) m/uL Hgb (13.0-17.5) gm/dL Hct (39.0-53.0) % MCHC (31.0-37.0) g/dL RDW (11.5-15.5) % Neutrophils # (1.3-7.7) k/uL Lymphocytes # (1.0-4.8) k/uL Monocytes # (0-1.0) k/uL PT (9.0-12.0) sec INR (<1.2) ABG pO2 (83-108) mmHg ABG Total CO2 (19-24) mmol/L ABG O2 Saturation (94-97) % BUN (9-20) mg/dL Creatinine (0.66-1.25) mg/dL Glucose (74-99) mg/dL POC Glucose (mg/dL) 114 H 138 H 146 H (75-99) mg/dL Calcium (8.4-10.2) mg/dL Total Protein (6.3-8.2) g/dL Albumin (3.5-5.0) g/dL 02/01/20 02/01/20 02/01/20 Range/Units 22:36 22:36 22:36 WBC (3.8-10.6) k/uL RBC 3.32 L (4.30-5.90) m/uL Hgb 9.5 L (13.0-17.5) gm/dL Hct 31.4 L (39.0-53.0) % MCHC 30.4 L (31.0-37.0) g/dL RDW 15.8 H (11.5-15.5) % Neutrophils # 8.6 H (1.3-7.7) k/uL Lymphocytes # 0.5 L (1.0-4.8) k/uL Monocytes # (0-1.0) k/uL PT 25.0 H (9.0-12.0) sec INR 2.6 H (<1.2) ABG pO2 (83-108) mmHg ABG Total CO2 (19-24) mmol/L ABG O2 Saturation (94-97) % BUN 78 H (9-20) mg/dL Creatinine 3.91 H (0.66-1.25) mg/dL Glucose 129 H (74-99) mg/dL POC Glucose (mg/dL) (75-99) mg/dL Calcium (8.4-10.2) mg/dL Total Protein 6.1 L (6.3-8.2) g/dL Albumin 3.2 L (3.5-5.0) g/dL 02/01/20 02/02/20 02/02/20 Range/Units 22:36 05:42 06:08 WBC (3.8-10.6) k/uL RBC (4.30-5.90) m/uL Hgb (13.0-17.5) gm/dL Hct (39.0-53.0) % MCHC (31.0-37.0) g/dL RDW (11.5-15.5) % Neutrophils # (1.3-7.7) k/uL Lymphocytes # (1.0-4.8) k/uL Monocytes # (0-1.0) k/uL PT (9.0-12.0) sec INR (<1.2) ABG pO2 261 H (83-108) mmHg ABG Total CO2 26 H (19-24) mmol/L ABG O2 Saturation 99.9 H (94-97) % BUN 83 H (9-20) mg/dL Creatinine 3.84 H (0.66-1.25) mg/dL Glucose 135 H (74-99) mg/dL POC Glucose (mg/dL) 157 H (75-99) mg/dL Calcium 8.3 L (8.4-10.2) mg/dL Total Protein 6.0 L (6.3-8.2) g/dL Albumin 3.1 L (3.5-5.0) g/dL 02/02/20 02/02/20 Range/Units 06:08 10:04 WBC 15.3 H (3.8-10.6) k/uL RBC 3.17 L (4.30-5.90) m/uL Hgb 9.8 L (13.0-17.5) gm/dL Hct 30.2 L (39.0-53.0) % MCHC (31.0-37.0) g/dL RDW 15.7 H (11.5-15.5) % Neutrophils # 10.8 H (1.3-7.7) k/uL Lymphocytes # (1.0-4.8) k/uL Monocytes # 2.6 H (0-1.0) k/uL PT (9.0-12.0) sec INR (<1.2) ABG pO2 (83-108) mmHg ABG Total CO2 (19-24) mmol/L ABG O2 Saturation (94-97) % BUN (9-20) mg/dL Creatinine (0.66-1.25) mg/dL Glucose (74-99) mg/dL POC Glucose (mg/dL) 139 H (75-99) mg/dL Calcium (8.4-10.2) mg/dL Total Protein (6.3-8.2) g/dL Albumin (3.5-5.0) g/dL Diabetes panel 02/01/20 02/02/20 Range/Units 22:36 06:08 Sodium 141 139 (137-145) mmol/L Potassium 4.4 4.4 (3.5-5.1) mmol/L Chloride 103 104 (98-107) mmol/L Carbon Dioxide 24 22 (22-30) mmol/L BUN 78 H 83 H (9-20) mg/dL Creatinine 3.91 H 3.84 H (0.66-1.25) mg/dL Glucose 129 H 135 H (74-99) mg/dL Calcium 8.6 8.3 L (8.4-10.2) mg/dL AST 27 28 (17-59) U/L ALT 6 7 (4-49) U/L Alkaline Phosphatase 88 78 (38-126) U/L Total Protein 6.1 L 6.0 L (6.3-8.2) g/dL Albumin 3.2 L 3.1 L (3.5-5.0) g/dL Calcium panel 02/01/20 02/02/20 Range/Units 22:36 06:08 Calcium 8.6 8.3 L (8.4-10.2) mg/dL Albumin 3.2 L 3.1 L (3.5-5.0) g/dL Pituitary panel 02/01/20 02/02/20 Range/Units 22:36 06:08 Sodium 141 139 (137-145) mmol/L Potassium 4.4 4.4 (3.5-5.1) mmol/L Chloride 103 104 (98-107) mmol/L Carbon Dioxide 24 22 (22-30) mmol/L BUN 78 H 83 H (9-20) mg/dL Creatinine 3.91 H 3.84 H (0.66-1.25) mg/dL Glucose 129 H 135 H (74-99) mg/dL Calcium 8.6 8.3 L (8.4-10.2) mg/dL Adrenal panel 02/01/20 02/02/20 Range/Units 22:36 06:08 Sodium 141 139 (137-145) mmol/L Potassium 4.4 4.4 (3.5-5.1) mmol/L Chloride 103 104 (98-107) mmol/L Carbon Dioxide 24 22 (22-30) mmol/L BUN 78 H 83 H (9-20) mg/dL Creatinine 3.91 H 3.84 H (0.66-1.25) mg/dL Glucose 129 H 135 H (74-99) mg/dL Calcium 8.6 8.3 L (8.4-10.2) mg/dL Total Bilirubin 0.5 0.5 (0.2-1.3) mg/dL AST 27 28 (17-59) U/L ALT 6 7 (4-49) U/L Alkaline Phosphatase 88 78 (38-126) U/L Total Protein 6.1 L 6.0 L (6.3-8.2) g/dL Albumin 3.2 L 3.1 L (3.5-5.0) g/dL - Imaging CT scan - abdomen: report reviewed CT scan - pelvis: report reviewed Assessment and Plan Plan: 79-year-old male with hematemesis and abdominal distention - CT of the abdomen and pelvis was reviewed along with the patient's clinical status. There is noted significant distention of the stomach on the computed tomography scan which does explain the patient's abdominal distention. Nasogastric tube has been placed and we will continue low intermittent suction. Secondary to the hematemesis episodes, we will begin Protonix twice a day. GI has been consultation and will defer to gastroenterology for any endoscopic procedure decision. Currently, there is no plan for surgical intervention. We'll continue to follow and make recommendations based on the patient's clinical progress. Prognosis is significantly guarded due to multiple medical issues.
[2020-02-02 12:47] LABS: INR 2.7 (<1.2); Prothrombin Time 26.2 sec (9.0-12.0)
[2020-02-02] MEDS: SODIUM CHLORIDE 0.9% 1,000 ML IV SCH (14:39)
[2020-02-02] MEDS: DOBUTamine DRIP 500 MG in DEXTROSE/WATER 1 250ML.BAG IV SCH ×2 (14:47→14:58)
--- NOTE | 2020-02-02 14:52 | P.PN ---
Subjective Progress Note Date: 02/02/20 (Critical care time spent 35 minutes) Principal diagnosis: Upper GI bleed/coffee-ground emesis Gastric distention Acute on chronic hypoxic respiratory failure Acute on chronic heart failure related to systolic heart failure Left foot with inflammation involving toes Bilateral pleural effusion Bilateral basal atelectasis COPD without exacerbation Severe leg uncontrolled diabetes with chronic complication with worsening Chronic atrial fibrillation Coagulopathy with elevated PT/INR, Coumadin is on hold Stage IV chronic renal failure 02/02/2020, patient seen eval examined during the rounds labs reviewed medications reviewed, patient remains on dobutamine drip off of dopamine drip he is on Lasix 50 mg an hour, patient due to gastric distention was the having cof fee-ground and Mrs. however hemoglobin remained stable white cell count went up to 15,000, patient INR isn't therapeutic range now,, patient has been on proton pump inhibitor, a computed tomography scan of the abdominal and pelvis has been performed which has been reviewed no gastric outlet obstruction has been noted but stomach may be slightly distended due to air, arterial blood gas have been reviewed adequate ventilation and oxygenation is present x-ray however suggestive of the fluid overload with bilateral pleural effusion not much change, renal functions remains on the higher level, patient likely will need hemodialysis with volume removal, care plan discussed with the staff further re commendations pending plan of care as per clinical response of the patient 02/01/2020, patient seen eval examined during the rounds, he remains afebrile, hemodynamic status stable however the blood pressure continue be on the low side oxygen saturation is 98% on 2 L, patient remains on breathing treatments and broad-spectrum antibiotics, do vitamin have been on hold due to tachycardia however remains on Lasix drip, Coumadin remains on hold recommend to check on a daily basis and resume Coumadin once is okay from cardiovascular services 01/31/2020, patient seen eval examined during the rounds has history of oxygen breathing status stable, saturation is 90-93%, patient has been on dobutamine and dopamine and Lasix strip, INR is coming down, BUN/creatinine slightly up This is a 79-year-old male who was seen evaluated examined on third floor, patient came into the hospital with progressive shortness of breath associated with last 1-2 weeks with increased swelling progressively from the 4 extremities to mid abdominal level in addition patient appears to be having diabetic foot infection with edema and redness in the toes as well in the left foot, patient is arousable but tired on 3 L oxygen, patient is to be started on Lasix drip along with dobutamine drip, patient has a history of COPD chronic systolic heart failure chronic atrial fibrillation diabetes along with chronic renal failure stage IV, currently patient is on WelChol dilators in the form of DuoNeb, ID service has been requested for antibiotics, his chest x-ray consistent with congestive heart failure fluid overload and pulmonary edema in addition to his interstitial edema and small bilateral pleural effusion Objective - Vital Signs Vital signs: Vital Signs Temp 97.6 F 02/02/20 12:00 Pulse 67 02/02/20 14:00 Resp 17 02/02/20 14:00 BP 108/47 02/02/20 14:00 Pulse Ox 98 02/02/20 14:00 Intake & Output 02/01/20 02/02/20 02/02/20 18:59 06:59 18:59 Intake Total 236 100 237.66 Output Total 800 1050 1275 Balance -564 -950 -1037.34 Weight 92.5 kg 92.5 kg Intake: IV 137.66 .9 @ 20 70 DOBUTamine DRIP 500 mg In 22.66 Dextrose/Water 1 250ml. bag @ 2.5 MCG/KG/MIN 7. 365 mls/hr IV .Q24H ENRIQUE Rx#:[id number] Furosemide 100 mg In 45 Sodium Chloride 0.9% 90 ml @ 15 MG/HR 15 mls/hr IV .Q6H40M ENRIQUE Rx#: [id number] Intake, IV Titration 100 100 Amount Furosemide 100 mg In 100 Sodium Chloride 0.9% 90 ml @ 15 MG/HR 15 mls/hr IV .Q6H40M ENRIQUE Rx#: [id number] cefTRIAXone 1 gm In 100 Sodium Chloride 0.9% 50 ml @ 100 mls/hr IVPB Q24HR ENRIQUE Rx#:[id number] Oral 236 0 Output: Urine 800 1050 1275 Uretheral (Porter) 900 Other: Voiding Method Indwelling Catheter Indwelling Catheter Indwelling Catheter - Exam - Constitutional General appearance: disheveled, mild distress, morbidly obese - EENT Eyes: EOMI, PERRLA Ears: bilateral: normal - Neck Neck: normal ROM Carotids: bilateral: upstroke normal - Respiratory Respiratory: bilateral: diminished, dullness, rales (At the bases), negative: CTA, rhonchi, wheezing, prolonged expiration - Cardiovascular Rhythm: regular Heart sounds: normal: S1, S2 - Gastrointestinal General gastrointestinal: normal bowel sounds, soft - Musculoskeletal Musculoskeletal: generalized weakness, strength equal bilaterally - Psychiatric Psychiatric: A&O x's 3, appropriate affect, intact judgment & insight Edema involving the lower extremity up to the abdominal level, in addition left diabetic foot involvement of the toes - Labs CBC & Chem 7: 02/02/20 06:08 02/02/20 06:08 Labs: Abnormal Lab Results - Last 24 Hours (Table) 02/01/20 02/01/20 02/01/20 Range/Units 16:38 19:57 22:17 WBC (3.8-10.6) k/uL RBC (4.30-5.90) m/uL Hgb (13.0-17.5) gm/dL Hct (39.0-53.0) % MCHC (31.0-37.0) g/dL RDW (11.5-15.5) % Neutrophils # (1.3-7.7) k/uL Lymphocytes # (1.0-4.8) k/uL Monocytes # (0-1.0) k/uL PT (9.0-12.0) sec INR (<1.2) ABG pO2 (83-108) mmHg ABG Total CO2 (19-24) mmol/L ABG O2 Saturation (94-97) % BUN (9-20) mg/dL Creatinine (0.66-1.25) mg/dL Glucose (74-99) mg/dL POC Glucose (mg/dL) 114 H 138 H 146 H (75-99) mg/dL Calcium (8.4-10.2) mg/dL Total Protein (6.3-8.2) g/dL Albumin (3.5-5.0) g/dL 02/01/20 02/01/20 02/01/20 Range/Units 22:36 22:36 22:36 WBC (3.8-10.6) k/uL RBC 3.32 L (4.30-5.90) m/uL Hgb 9.5 L (13.0-17.5) gm/dL Hct 31.4 L (39.0-53.0) % MCHC 30.4 L (31.0-37.0) g/dL RDW 15.8 H (11.5-15.5) % Neutrophils # 8.6 H (1.3-7.7) k/uL Lymphocytes # 0.5 L (1.0-4.8) k/uL Monocytes # (0-1.0) k/uL PT 25.0 H (9.0-12.0) sec INR 2.6 H (<1.2) ABG pO2 (83-108) mmHg ABG Total CO2 (19-24) mmol/L ABG O2 Saturation (94-97) % BUN 78 H (9-20) mg/dL Creatinine 3.91 H (0.66-1.25) mg/dL Glucose 129 H (74-99) mg/dL POC Glucose (mg/dL) (75-99) mg/dL Calcium (8.4-10.2) mg/dL Total Protein 6.1 L (6.3-8.2) g/dL Albumin 3.2 L (3.5-5.0) g/dL 02/01/20 02/02/20 02/02/20 Range/Units 22:36 05:42 06:08 WBC (3.8-10.6) k/uL RBC (4.30-5.90) m/uL Hgb (13.0-17.5) gm/dL Hct (39.0-53.0) % MCHC (31.0-37.0) g/dL RDW (11.5-15.5) % Neutrophils # (1.3-7.7) k/uL Lymphocytes # (1.0-4.8) k/uL Monocytes # (0-1.0) k/uL PT (9.0-12.0) sec INR (<1.2) ABG pO2 261 H (83-108) mmHg ABG Total CO2 26 H (19-24) mmol/L ABG O2 Saturation 99.9 H (94-97) % BUN 83 H (9-20) mg/dL Creatinine 3.84 H (0.66-1.25) mg/dL Glucose 135 H (74-99) mg/dL POC Glucose (mg/dL) 157 H (75-99) mg/dL Calcium 8.3 L (8.4-10.2) mg/dL Total Protein 6.0 L (6.3-8.2) g/dL Albumin 3.1 L (3.5-5.0) g/dL 02/02/20 02/02/20 02/02/20 Range/Units 06:08 10:04 12:32 WBC 15.3 H (3.8-10.6) k/uL RBC 3.17 L (4.30-5.90) m/uL Hgb 9.8 L (13.0-17.5) gm/dL Hct 30.2 L (39.0-53.0) % MCHC (31.0-37.0) g/dL RDW 15.7 H (11.5-15.5) % Neutrophils # 10.8 H (1.3-7.7) k/uL Lymphocytes # (1.0-4.8) k/uL Monocytes # 2.6 H (0-1.0) k/uL PT 26.2 H (9.0-12.0) sec INR 2.7 H (<1.2) ABG pO2 (83-108) mmHg ABG Total CO2 (19-24) mmol/L ABG O2 Saturation (94-97) % BUN (9-20) mg/dL Creatinine (0.66-1.25) mg/dL Glucose (74-99) mg/dL POC Glucose (mg/dL) 139 H (75-99) mg/dL Calcium (8.4-10.2) mg/dL Total Protein (6.3-8.2) g/dL Albumin (3.5-5.0) g/dL Assessment and Plan Assessment: Acute renal failure Upper GI coffee-ground emesis likely due to stress ulceration patient has been started on Protonix Acute on chronic hypoxic respiratory failure Acute on chronic heart failure related to systolic heart failure Left foot with inflammation involving toes Bilateral pleural effusion Bilateral basal atelectasis COPD without exacerbation Severe leg uncontrolled diabetes with chronic complication with worsening Chronic atrial fibrillation Coagulopathy with elevated PT/INR, Coumadin is on hold Stage IV chronic renal failure Plan: Agree with plans for hemodialysis Continue to monitor patient closely in ICU Continue bronchodilators Labs have been ordered for tomorrow Continue oxygen 2 L nasal cannula oxygen saturation is stable No need to start steroids now Broad-spectrum antibiotics as per infectious disease recommendation Agree with inotropes and aggressive generalized diuresis with Lasix As far as pleural effusion is concerned will monitor and observe no plans for t horacentesis Monitor renal functions and electrolytes closely Continue to hold Coumadin for now monitor observe PT/INR closely Further recommendations pending plan of care as per clinical response of patient Time with Patient: Greater than 30
--- NOTE | 2020-02-02 17:40 | PN ---
PROGRESS NOTE DATE OF SERVICE: 02/02/2020 REASON FOR FOLLOWUP: Lower extremity cellulitis. INTERVAL HISTORY: The patient did have significant change in his clinical condition. He had multiple emeses . Subsequently the patient was transferred down to the ICU. NG has been placed. CT of abdomen and pelvis shows significant gastric distention, concern for gastroparesis. The patient is currently in the ICU. Surgical team has been consulted, following the patient. The patient was unable to provide any history. PHYSICAL EXAMINATION: Blood pressure 101/52 with a pulse of 98, temperature 97.6. He is 96% on L nasal cannula. General description is an elderly male lying in bed in no distress. RESPIRATORY SYSTEM: Unlabored breathing with decreased breath sounds at the base. No wheeze. HEART: S1, S2. Regular rate and rhythm. ABDOMEN: Very distended. No guarding or rigidity. EXTREMITIES: Swelling persists. Redness improved. LABS: Hemoglobin 9.8, white count 15.3, BUN of 83, creatinine 3.84. DIAGNOSTIC IMPRESSION AND PLAN: Patient with lower extremity cellulitis, now with evidence of significant hematemesis, questionably related to gastroparesis. He did have significant abdominal distention. Patient is covered with Rocephin; to continue and will monitor his clinical course closely. Continue supportive care. Chest x-ray is showing right lower lobe pneumonia, possible aspiration etiology. Antibiotic will be adjusted to cefepime and Flagyl and will monitor his clinical course closely. MMODL / IJN: [id number] /
[2020-02-02] MEDS: metroNIDAZOLE-NS PMX 500 MG in SALINE 1 100ML.BAG IVPB SCH (18:39)
[2020-02-02] MEDS ORDERED: ACETAMINOPHEN IV (For NPO) 1,000 MG in EMPTY BAG 1 BAG IVPB PRN (18:56)
[2020-02-02 19:06] LABS: Glucose,Whole Blood 132 mg/dL (75-99)
[2020-02-02] MEDS: CEFEPIME 1 GM in SODIUM CHLORIDE 0.9% 50 ML IVPB SCH (20:53)
[2020-02-02] MEDS: FAMOTIDINE 20 MG/2 ML VIAL IV SCH (20:53)
[2020-02-02] MEDS: MONTELUKAST 10 MG TAB PO SCH (20:55)
[2020-02-02 20:57] LABS: Glucose,Whole Blood 137 mg/dL (75-99)
[2020-02-02] MEDS ORDERED: EPINEPHrine 10 ML SYRINGE (0.1 MG/ML) ONE (22:02)
[2020-02-02] MEDS ORDERED: SUCCINYLCHOLINE CHLORIDE VIAL 200 MG/10 ML VIAL IV ONE (22:15)
[2020-02-02] MEDS ORDERED: ETOMIDATE 2 MG/ML 10 ML VIAL ONE (22:15)
[2020-02-02] MEDS ORDERED: PROPOFOL 100 ML IV ONE (22:20)
[2020-02-02 22:23] LABS: Glucose,Whole Blood 161 mg/dL (75-99)
[2020-02-02] MEDS ORDERED: DEXTROSE 5% IN WATER 100 ML with AMIODARONE 150 MG IV ONE (22:28)
[2020-02-02 22:37] LABS: Anisocytosis Slight; Basophils % (A) 0 %; Eosinophils # (A) 0.3 k/uL (0-0.7); Eosinophils % (A) 2 %; HCT 33.6 % (39.0-53.0); Hypochromasia Marked; Lymphocytes # (A) 1.5 k/uL (1.0-4.8); Lymphocytes % (A) 12 %; MCH 28.9 pg (25.0-35.0); MCHC 29.7 g/dL (31.0-37.0); MCV 97.3 fL (80.0-100.0); Mean Platelet Volume 8.1; Monocytes # (A) 0.6 k/uL (0-1.0); Monocytes % (A) 4 %; Neutrophils # (A) 10.3 k/uL (1.3-7.7); Neutrophils % (A) 80 %; Platelet Count 191 k/uL (150-450); RBC 3.45 m/uL (4.30-5.90); WBC 12.9 k/uL (3.8-10.6)
--- NOTE | 2020-02-02 22:43 | XR ---
EXAMINATION TYPE: XR chest 1V DATE OF EXAM: 02/02/2020 COMPARISON: 02/02/2020 HISTORY: Intubated. Fluid overload. TECHNIQUE: FINDINGS: Heart is enlarged. There is pulmonary vascular congestion. There is significant pulmonary e michael in the right lung. There is nasogastric tube in the stomach. There is endotracheal tube is 4.5 c m from the reva. There is a left axillary pacemaker. IMPRESSION: Congestive heart failure with right pleural effusion. Moderate pulmonary airspace edema i n the right lung. No change compared to yesterday.
[2020-02-02 22:45] LABS: Albumin 3.2 g/dL (3.5-5.0); Calcium 8.4 mg/dL (8.4-10.2); Magnesium 2.1 mg/dL (1.6-2.3); Potassium 4.4 mmol/L (3.5-5.1); Total Bilirubin 0.5 mg/dL (0.2-1.3); Total Protein 6.1 g/dL (6.3-8.2)
[2020-02-02] MEDS: PROPOFOL 1,000 MG in EMPTY BAG 1 BAG IV SCH (22:46)
[2020-02-02] MEDS ORDERED: AMIODARONE 360 MG in DEXTROSE 5% IN WATER 200 ML IV ONE ×2 (22:50)
[2020-02-02 22:52] LABS: ABG HCO3 23 mmol/L (21-25); ABG PCO2 41 mmHg (35-45); ABG PH 7.35 (7.35-7.45); ABG PO2 82 mmHg (83-108); ABG TCO2 24 mmol/L (19-24); Allen Test Performed? Yes
[2020-02-02] MEDS: NOREPINEPHRINE 4 MG in SODIUM CHLORIDE 0.9% 250 ML IV SCH (23:24)
--- NOTE | 2020-02-02 23:56 | P.EN ---
[facility] SINGH was called and the patient for V. fib arrest. Patient received 1 shock and 1 dose of therapy one cycle of CPR and then here had the return of spontaneous circulation. Patient was intubated Primary team was notified by myself over the phone, cardiology notified by RN Set of labs were ordered Patient has CHF with left ventricular systolic function of 20% Please refer to paper documentation of his [facility] SINGH event for full details that's attached in his chart
[2020-02-03] MEDS: metroNIDAZOLE-NS PMX 500 MG in SALINE 1 100ML.BAG IVPB SCH ×3 (00:51→20:41)
[2020-02-03] MEDS: PROPOFOL 1,000 MG in EMPTY BAG 1 BAG IV SCH ×3 (03:46→14:08)
[2020-02-03] MEDS: AMIODARONE 300 MG in DEXTROSE 5% IN WATER 250 ML IV SCH ×4 (05:23→16:43)
[2020-02-03 05:28] LABS: ABG Base Excess -3.4 mmol/L; ABG HCO3 22 mmol/L (21-25); ABG Oxygen Saturation 99.4 % (94-97); ABG PCO2 37 mmHg (35-45); ABG PH 7.38 (7.35-7.45); ABG PO2 153 mmHg (83-108); ABG TCO2 23 mmol/L (19-24); Allen Test Performed? Yes
[2020-02-03] MEDS: FUROSEMIDE 100 MG in SODIUM CHLORIDE 0.9% 90 ML IV SCH ×3 (05:39→18:58)
[2020-02-03 05:54] LABS: Basophils % (A) 0 %; Eosinophils # (A) 0.4 k/uL (0-0.7); Eosinophils % (A) 3 %; HGB 9.8 gm/dL (13.0-17.5); Hypochromasia Marked; Lymphocytes # (A) 0.9 k/uL (1.0-4.8); Lymphocytes % (A) 6 %; MCH 29.3 pg (25.0-35.0); MCHC 30.6 g/dL (31.0-37.0); MCV 95.9 fL (80.0-100.0); Monocytes # (A) 0.9 k/uL (0-1.0); Monocytes % (A) 5 %; Neutrophils # (A) 13.7 k/uL (1.3-7.7); Neutrophils % (A) 85 %; Platelet Count 254 k/uL (150-450); RBC 3.34 m/uL (4.30-5.90); RDW 15.9 % (11.5-15.5); WBC 16.1 k/uL (3.8-10.6)
[2020-02-03 06:15] LABS: Calcium 7.9 mg/dL (8.4-10.2); Potassium 4.3 mmol/L (3.5-5.1)
--- NOTE | 2020-02-03 06:28 | XR ---
EXAMINATION TYPE: XR chest 1V DATE OF EXAM: 02/03/2020 HISTORY: rule out fluid overload. REFERENCE: Previous study dated 02/02/2020. FINDINGS: The patient's ET tube and NG tube remain in place, unchanged in appearance. A bipolar pacem will is present on the left. The heart is mildly enlarged. There is increased opacity of the right hemithorax which is likely a co mbination of fluid and airspace disease. I do not see evidence of vascular congestion. IMPRESSION: IMPROVED AERATION, RIGHT LUNG.
[2020-02-03 06:40] LABS: INR 2.9 (<1.2); Partial Thromboplastin Time 33.3 sec (22.0-30.0); Prothrombin Time 28.2 sec (9.0-12.0)
[2020-02-03 06:58] LABS: Glucose,Whole Blood 121 mg/dL (75-99)
[2020-02-03] MEDS ORDERED: LIDOCAINE 1% INJ 10MG/ML (20 ML MDV) ONE (07:57)
[2020-02-03] MEDS ORDERED: HEPARIN SODIUM 1,000 UN/ML (10ML VL) ONE (07:57)
[2020-02-03] MEDS: IPRATROPIUM-ALBUTEROL 3 ML NEB INHALATION SCH ×4 (08:02→19:39)
--- NOTE | 2020-02-03 10:00 | CONS ---
CONSULTATION 79-year-old gentleman who has been intubated. The patient had a cardiac arrest with CPR. Has been intubated. He has a high BUN and creatinine. I was consulted for placement of urgent dialysis catheter. The patient also has history of congestive heart failure. Ejection fraction between 25 and 30. The patient also has a history of insulin-dependent diabetes mellitus. The patient was seen in the room. Patient has been intubated. Chest has crackles bilateral. Abdomen is soft. Femorals are 1+. The patient has right lower extremity cellulitis. The patient has been on Coumadin which has been stopped. INR is slightly raised but the patient needs urgent dialysis catheter. Risks and complications of bleeding, infection, thrombosis has been discussed. Thank very much for the consultation. MYRNAL / PETRAN: [id number] /
--- NOTE | 2020-02-03 10:07 | PCN ---
PROCEDURE NOTE PREOPERATIVE DIAGNOSIS: Acute on chronic renal failure. POSTOPERATIVE DIAGNOSIS: Acute on chronic renal failure. PROCEDURE PERFORMED: Ultrasound-guided dialysis catheter placed right femoral approach. DESCRIPTION OF PROCEDURE: The patient was seen in the Intensive Care Unit. Right groin was prepped and drapes applied in the usual sterile manner. Ultrasound-guided micropuncture introduced into the right femoral vein and micropuncture guidewire was passed. After that, we placed a dilator on the top of the guidewire and then we passed a regular guidewire and then we placed the dilator on the top of the guidewire. After that we placed a dialysis catheter which was flushed with heparin saline and hep-locked, secured with 3-0 nylon. Dressing applied. Patient tolerated the procedure well. CELESTE / PETRAN: [id number] /
[2020-02-03] MEDS: INSULIN ASPART (NovoLOG) 100 UNIT/ML VIAL SQ SCH ×4 (10:54→19:52)
[2020-02-03 11:08] LABS: Glucose,Whole Blood 115 mg/dL (75-99)
[2020-02-03] MEDS: SODIUM FERRIC GLUCONAT-SUCROSE 125 MG in SODIUM CHLORIDE 0.9% 100 ML IVPB SCH (11:24)
[2020-02-03] MEDS: SODIUM CHLORIDE 0.9% 1,000 ML IV SCH (11:26)
[2020-02-03] MEDS: INSULIN DETEMIR (LEVEMIR) 100 UNIT/ML SYR SQ SCH ×2 (11:27→20:39)
[2020-02-03] MEDS: SENNOSIDES 8.6 MG TAB PO SCH ×2 (11:28→20:40)
[2020-02-03] MEDS: FAMOTIDINE 20 MG/2 ML VIAL IV SCH (11:28)
[2020-02-03] MEDS: CARBIDOPA-LEVODOPA 10-100 MG 1 EACH TAB PO SCH ×2 (11:29→20:39)
[2020-02-03] MEDS: ISOSORBIDE MONONITRATE ER 15 MG TAB PO SCH (11:33)
[2020-02-03] MEDS: CARVEDILOL 3.125 MG TAB PO SCH ×2 (11:33→20:40)
[2020-02-03] MEDS ORDERED: VANCOMYCIN IV PER PHARMACY 1 EACH MISC MISCELLANE PRN (11:36)
[2020-02-03] MEDS: CHLORHEXIDINE GLUCONATE 15 ML CUP MUCOUS MEM SCH ×2 (11:48→20:39)
[2020-02-03] MEDS: PANTOPRAZOLE 40 MG/10 ML VIAL IVP SCH ×2 (11:48→20:40)
[2020-02-03] MEDS: METOLAZONE 5 MG TAB PO SCH ×2 (11:51→20:40)
[2020-02-03] MEDS: CEFEPIME 1 GM in SODIUM CHLORIDE 0.9% 50 ML IVPB SCH ×2 (12:19→20:39)
--- NOTE | 2020-02-03 12:24 | P.PN ---
Subjective Progress Note Date: 02/03/20 Principal diagnosis: Aspiration pneumonia Acute hypoxic respiratory failure Acute on chronic renal failure Upper GI bleed/coffee-ground emesis Gastric distention Acute on chronic heart failure related to systolic heart failure Left foot with inflammation involving toes Bilateral pleural effusion Bilateral basal atelectasis COPD without exacerbation Severe leg uncontrolled diabetes with chronic complication with worsening Chronic atrial fibrillation Coagulopathy with elevated PT/INR, Coumadin is on hold Stage IV chronic renal failure 02/03/2020, patient seen and evaluated examined during the rounds sedated with propofol drip about 30 mics patient is on full vent support, hypoxia Significantly worse after V. fib cardiac arrest have been earlier this morning, patient has been intubated, chest x-ray reviewed, patient is on amiodarone drip, status post ACLS protocol, revived, patient underwent a hemodialysis catheter this morning, currently dialysis is undergoing plan is to remove a liter, patient is on levo fed drip, urgently needed central line and A-line because of poor peripheral IV axis and risk of externalization of vasopressors, still have coffee-ground material coming but severity appears to improve gastric secretions light and now patient is on Armaan Keofeed can be started, patient has third spacing and tissue edema with ecchymosis and bruising upper extremity, also has diabetic foot ulcer, patient remains on broad-spectrum antibiotic with Cefepime, we'll add vancomycin with pharmacy to dose, vent setting currently include assist control with PEEP of 10 FiO2 is 60% oxygen saturations were dropping into high 80s FiO2 increase to 70%, critical care time spent 35 minutes 02/02/2020, patient seen eval examined during the rounds labs reviewed medications reviewed, patient remains on dobutamine drip off of dopamine drip he is on Lasix 50 mg an hour, patient due to gastric distention was the having coffee-ground and Mrs. however hemoglobin remained stable white cell count went up to 15,000, patient INR isn't therapeutic range now,, patient has been on proton pump inhibitor, a computed tomography scan of the abdominal and pelvis has been performed which has been reviewed no gastric outlet obstruction has been noted but stomach may be slightly distended due to air, arterial blood gas have been reviewed adequate ventilation and oxygenation is present x-ray however suggestive of the fluid overload with bilateral pleural effusion not much change, renal functions remains on the higher level, patient likely will need hemodialysis with volume removal, care plan discussed with the staff further recommendations pending plan of care as per clinical response of the patient 02/01/2020, patient seen eval examined during the rounds, he remains afebrile, hemodynamic status stable however the blood pressure continue be on the low side oxygen saturation is 98% on 2 L, patient remains on breathing treatments and broad-spectrum antibiotics, do vitamin have been on hold due to tachycardia however remains on Lasix drip, Coumadin remains on hold recommend to check on a daily basis and resume Coumadin once is okay from cardiovascular services 01/31/2020, patient seen eval examined during the rounds has history of oxygen breathing status stable, saturation is 90-93%, patient has been on dobutamine and dopamine and Lasix strip, INR is coming down, BUN/creatinine slightly up This is a 79-year-old male who was seen evaluated examined on third floor, patient came into the hospital with progressive shortness of breath associated with last 1-2 weeks with increased swelling progressively from the 4 extremities to mid abdominal level in addition patient appears to be having diabetic foot infection with edema and redness in the toes as well in the left foot, patient is arousable but tired on 3 L oxygen, patient is to be started on Lasix drip along with dobutamine drip, patient has a history of COPD chronic systolic heart failure chronic atrial fibrillation diabetes along with chronic renal failure stage IV, currently patient is on WelChol dilators in the form of DuoNeb, ID service has been requested for antibiotics, his chest x-ray consistent with congestive heart failure fluid overload and pulmonary edema in addition to his interstitial edema and small bilateral pleural effusion Objective - Vital Signs Vital signs: Vital Signs Temp 98.1 F 02/03/20 12:00 Pulse 72 02/03/20 12:00 Resp 16 02/03/20 12:00 BP 106/86 02/03/20 12:00 Pulse Ox 98 02/03/20 12:00 Intake & Output 02/02/20 02/03/20 02/03/20 18:59 06:59 18:59 Intake Total 632.15 771.124 742.357 Output Total 920 71 100 Balance -287.85 700.124 642.357 Weight 92.5 kg 91.8 kg Intake: IV 329.45 275 260 .9 @ 20 150 275 20 DOBUTamine DRIP 500 mg In 59.45 Dextrose/Water 1 250ml. bag @ 2.5 MCG/KG/MIN 7. 365 mls/hr IV .Q24H [facility] Rx#:[id number] Furosemide 100 mg In 120 60 Sodium Chloride 0.9% 90 ml @ 15 MG/HR 15 mls/hr IV .Q6H40M [facility] Rx#: [id number] Sodium Chloride 0.9% 1, 80 000 ml @ 20 mls/hr IV . Q24H [facility] Rx#:[id number] Sodium Ferric Gluconat- 100 Sucrose 125 mg In Sodium Chloride 0.9% 100 ml @ 100 mls/hr IVPB DAILY [facility] Rx#:[id number] Intake, IV Titration 302.7 496.124 482.357 Amount Amiodarone 300 mg In 147.917 Dextrose 5% in Water 250 ml @ 0.5 MG/MIN 25 mls/hr IV .Q10H [facility] Rx#: [id number] Cefepime 1 gm In Sodium 100 Chloride 0.9% 50 ml @ 100 mls/hr IVPB Q12HR [facility] Rx #:[id number] DOBUTamine DRIP 500 mg In 2.7 Dextrose/Water 1 250ml. bag @ 2.5 MCG/KG/MIN 7. 365 mls/hr IV .Q24H [facility] Rx#:[id number] Furosemide 100 mg In 100 109.833 18.5 Sodium Chloride 0.9% 90 ml @ 15 MG/HR 15 mls/hr IV .Q6H40M [facility] Rx#: [id number] Norepinephrine 4 mg In 16.916 237.084 Sodium Chloride 0.9% 250 ml @ 0.05 MCG/KG/MIN 17. 621 mls/hr IV .S56M29M [facility] Rx#:[id number] Propofol 1,000 mg In 69.375 78.856 Empty Bag 1 bag @ Titrate IV .Q0M [facility] Rx#: [id number] cefTRIAXone 1 gm In 100 Sodium Chloride 0.9% 50 ml @ 100 mls/hr IVPB Q24HR [facility] Rx#:[id number] metroNIDAZOLE-NS PMX 500 100 200 mg In Saline 1 100ml.bag @ 100 mls/hr IVPB Q8HR [facility] Rx#:[id number] Output: Gastric Drainage 50 100 Urine 870 71 0 Uretheral (Porter) 300 Other: Voiding Method Indwelling Catheter Indwelling Catheter # Bowel Movements 1 - Exam Intubated sedated on full respiratory support diffuse ecchymosis edema and third spacing - Constitutional General appearance: disheveled, mild distress, morbidly obese - Neck Neck: Supple Carotids: bilateral: upstroke normal - Respiratory Respiratory: bilateral: diminished, dullness, rales bronchial breath sounds especially on the right side - Cardiovascular Rhythm: regular Heart sounds: normal: S1, S2 - Gastrointestinal General gastrointestinal: normal bowel sounds, soft - Musculoskeletal Musculoskeletal: generalized weakness, strength equal bilaterally - Psychiatric Psychiatric: Sedated on full ventilator support Edema involving the lower extremity up to the abdominal level, in addition left diabetic foot involvement of the toes - Labs CBC & Chem 7: 02/03/20 05:00 02/03/20 05:00 Labs: Abnormal Lab Results - Last 24 Hours (Table) 02/02/20 02/02/20 02/02/20 Range/Units 12:32 18:46 20:44 WBC (3.8-10.6) k/uL RBC (4.30-5.90) m/uL Hgb (13.0-17.5) gm/dL Hct (39.0-53.0) % MCHC (31.0-37.0) g/dL RDW (11.5-15.5) % Neutrophils # (1.3-7.7) k/uL Lymphocytes # (1.0-4.8) k/uL PT 26.2 H (9.0-12.0) sec INR 2.7 H (<1.2) APTT (22.0-30.0) sec ABG pO2 (83-108) mmHg ABG O2 Saturation (94-97) % Carbon Dioxide (22-30) mmol/L BUN (9-20) mg/dL Creatinine (0.66-1.25) mg/dL Glucose (74-99) mg/dL POC Glucose (mg/dL) 132 H 137 H (75-99) mg/dL Plasma Lactic Acid Noel (0.7-2.0) mmol/L Calcium (8.4-10.2) mg/dL Troponin I (0.000-0.034) ng/mL Total Protein (6.3-8.2) g/dL Albumin (3.5-5.0) g/dL 02/02/20 02/02/20 02/02/20 Range/Units 22:21 22:25 22:25 WBC 12.9 H (3.8-10.6) k/uL RBC 3.45 L (4.30-5.90) m/uL Hgb 10.0 L (13.0-17.5) gm/dL Hct 33.6 L (39.0-53.0) % MCHC 29.7 L (31.0-37.0) g/dL RDW 16.0 H (11.5-15.5) % Neutrophils # 10.3 H (1.3-7.7) k/uL Lymphocytes # (1.0-4.8) k/uL PT (9.0-12.0) sec INR (<1.2) APTT (22.0-30.0) sec ABG pO2 (83-108) mmHg ABG O2 Saturation (94-97) % Carbon Dioxide 20 L (22-30) mmol/L BUN 85 H (9-20) mg/dL Creatinine 4.14 H (0.66-1.25) mg/dL Glucose 137 H (74-99) mg/dL POC Glucose (mg/dL) 161 H (75-99) mg/dL Plasma Lactic Acid Noel (0.7-2.0) mmol/L Calcium (8.4-10.2) mg/dL Troponin I (0.000-0.034) ng/mL Total Protein 6.1 L (6.3-8.2) g/dL Albumin 3.2 L (3.5-5.0) g/dL 02/02/20 02/02/20 02/03/20 Range/Units 22:30 22:48 02:36 WBC (3.8-10.6) k/uL RBC (4.30-5.90) m/uL Hgb (13.0-17.5) gm/dL Hct (39.0-53.0) % MCHC (31.0-37.0) g/dL RDW (11.5-15.5) % Neutrophils # (1.3-7.7) k/uL Lymphocytes # (1.0-4.8) k/uL PT (9.0-12.0) sec INR (<1.2) APTT (22.0-30.0) sec ABG pO2 82 L (83-108) mmHg ABG O2 Saturation (94-97) % Carbon Dioxide (22-30) mmol/L BUN (9-20) mg/dL Creatinine (0.66-1.25) mg/dL Glucose (74-99) mg/dL POC Glucose (mg/dL) (75-99) mg/dL Plasma Lactic Acid Noel 2.8 H* 2.4 H* (0.7-2.0) mmol/L Calcium (8.4-10.2) mg/dL Troponin I (0.000-0.034) ng/mL Total Protein (6.3-8.2) g/dL Albumin (3.5-5.0) g/dL 02/03/20 02/03/20 02/03/20 Range/Units 05:00 05:00 05:00 WBC 16.1 H (3.8-10.6) k/uL RBC 3.34 L (4.30-5.90) m/uL Hgb 9.8 L (13.0-17.5) gm/dL Hct 32.0 L (39.0-53.0) % MCHC 30.6 L (31.0-37.0) g/dL RDW 15.9 H (11.5-15.5) % Neutrophils # 13.7 H (1.3-7.7) k/uL Lymphocytes # 0.9 L (1.0-4.8) k/uL PT (9.0-12.0) sec INR (<1.2) APTT (22.0-30.0) sec ABG pO2 (83-108) mmHg ABG O2 Saturation (94-97) % Carbon Dioxide (22-30) mmol/L BUN 86 H (9-20) mg/dL Creatinine 4.60 H (0.66-1.25) mg/dL Glucose 131 H (74-99) mg/dL POC Glucose (mg/dL) (75-99) mg/dL Plasma Lactic Acid Noel (0.7-2.0) mmol/L Calcium 7.9 L (8.4-10.2) mg/dL Troponin I 0.864 H* (0.000-0.034) ng/mL Total Protein (6.3-8.2) g/dL Albumin (3.5-5.0) g/dL 02/03/20 02/03/20 02/03/20 Range/Units 05:26 06:15 06:47 WBC (3.8-10.6) k/uL RBC (4.30-5.90) m/uL Hgb (13.0-17.5) gm/dL Hct (39.0-53.0) % MCHC (31.0-37.0) g/dL RDW (11.5-15.5) % Neutrophils # (1.3-7.7) k/uL Lymphocytes # (1.0-4.8) k/uL PT 28.2 H (9.0-12.0) sec INR 2.9 H (<1.2) APTT 33.3 H (22.0-30.0) sec ABG pO2 153 H (83-108) mmHg ABG O2 Saturation 99.4 H (94-97) % Carbon Dioxide (22-30) mmol/L BUN (9-20) mg/dL Creatinine (0.66-1.25) mg/dL Glucose (74-99) mg/dL POC Glucose (mg/dL) 121 H (75-99) mg/dL Plasma Lactic Acid Noel (0.7-2.0) mmol/L Calcium (8.4-10.2) mg/dL Troponin I (0.000-0.034) ng/mL Total Protein (6.3-8.2) g/dL Albumin (3.5-5.0) g/dL 02/03/20 02/03/20 Range/Units 07:16 11:04 WBC (3.8-10.6) k/uL RBC (4.30-5.90) m/uL Hgb (13.0-17.5) gm/dL Hct (39.0-53.0) % MCHC (31.0-37.0) g/dL RDW (11.5-15.5) % Neutrophils # (1.3-7.7) k/uL Lymphocytes # (1.0-4.8) k/uL PT (9.0-12.0) sec INR (<1.2) APTT (22.0-30.0) sec ABG pO2 (83-108) mmHg ABG O2 Saturation (94-97) % Carbon Dioxide (22-30) mmol/L BUN (9-20) mg/dL Creatinine (0.66-1.25) mg/dL Glucose (74-99) mg/dL POC Glucose (mg/dL) 115 H (75-99) mg/dL Plasma Lactic Acid Noel 2.4 H* (0.7-2.0) mmol/L Calcium (8.4-10.2) mg/dL Troponin I (0.000-0.034) ng/mL Total Protein (6.3-8.2) g/dL Albumin (3.5-5.0) g/dL Assessment and Plan Assessment: Aspiration pneumonia Status post V. fib cardiac arrest Acute renal failure mostly appears to be cardiorenal Upper GI coffee-ground emesis likely due to stress ulceration patient has been started on Protonix Acute on chronic hypoxic respiratory failure Acute on chronic heart failure related to systolic heart failure Left foot with inflammation involving toes Bilateral pleural effusion Bilateral basal atelectasis COPD without exacerbation Severe leg uncontrolled diabetes with chronic complication with worsening Chronic atrial fibrillation Coagulopathy with elevated PT/INR, Coumadin is on hold Stage IV chronic renal failure baseline Plan: Agree with plans for hemodialysis Patient will need a central line and A-line on urgent basis Continue to monitor patient closely in ICU Continue ventilator adjustment as needed and tolerated Tube feed Hypothermia protocol not available in this institution Continue bronchodilators Labs have been ordered for tomorrow Continue oxygen 2 L nasal cannula oxygen saturation is stable No need to start steroids now Broad-spectrum antibiotics as per infectious disease recommendation Agree with inotropes and dialysis as planned As far as pleural effusion is concerned will monitor and observe no plans for thoracentesis Monitor renal functions and electrolytes closely Continue to hold Coumadin for now monitor observe PT/INR closely Further recommendations pending plan of care as per clinical response of patient Time with Patient: Greater than 30
--- NOTE | 2020-02-03 12:25 | P.PN ---
Subjective Progress Note Date: 02/03/20 Patient seen and examined at bedside. Acute cardiac event overnight. Currently intubated with nasogastric tube in place. Objective - Vital Signs Vital signs: Vital Signs Temp 98.1 F 02/03/20 12:00 Pulse 72 02/03/20 12:08 Resp 16 02/03/20 12:00 BP 106/86 02/03/20 12:00 Pulse Ox 98 02/03/20 12:00 Intake & Output 02/02/20 02/03/20 02/03/20 18:59 06:59 18:59 Intake Total 632.15 771.124 832.501 Output Total 920 71 100 Balance -287.85 700.124 732.501 Weight 92.5 kg 91.8 kg Intake: IV 329.45 275 260 .9 @ 20 150 275 20 DOBUTamine DRIP 500 mg In 59.45 Dextrose/Water 1 250ml. bag @ 2.5 MCG/KG/MIN 7. 365 mls/hr IV .Q24H [facility] Rx#:[id number] Furosemide 100 mg In 120 60 Sodium Chloride 0.9% 90 ml @ 15 MG/HR 15 mls/hr IV .Q6H40M [facility] Rx#: [id number] Sodium Chloride 0.9% 1, 80 000 ml @ 20 mls/hr IV . Q24H [facility] Rx#:[id number] Sodium Ferric Gluconat- 100 Sucrose 125 mg In Sodium Chloride 0.9% 100 ml @ 100 mls/hr IVPB DAILY [facility] Rx#:[id number] Intake, IV Titration 302.7 496.124 572.501 Amount Amiodarone 300 mg In 147.917 Dextrose 5% in Water 250 ml @ 0.5 MG/MIN 25 mls/hr IV .Q10H [facility] Rx#: [id number] Cefepime 1 gm In Sodium 100 Chloride 0.9% 50 ml @ 100 mls/hr IVPB Q12HR [facility] Rx #:[id number] DOBUTamine DRIP 500 mg In 2.7 Dextrose/Water 1 250ml. bag @ 2.5 MCG/KG/MIN 7. 365 mls/hr IV .Q24H [facility] Rx#:[id number] Furosemide 100 mg In 100 109.833 87.5 Sodium Chloride 0.9% 90 ml @ 15 MG/HR 15 mls/hr IV .Q6H40M [facility] Rx#: [id number] Norepinephrine 4 mg In 16.916 237.084 Sodium Chloride 0.9% 250 ml @ 0.05 MCG/KG/MIN 17. 621 mls/hr IV .[id number] [facility] Rx#:[id number] Propofol 1,000 mg In 69.375 100.000 Empty Bag 1 bag @ Titrate IV .Q0M [facility] Rx#: [id number] cefTRIAXone 1 gm In 100 Sodium Chloride 0.9% 50 ml @ 100 mls/hr IVPB Q24HR [facility] Rx#:[id number] metroNIDAZOLE-NS PMX 500 100 200 mg In Saline 1 100ml.bag @ 100 mls/hr IVPB Q8HR [facility] Rx#:[id number] Output: Gastric Drainage 50 100 Urine 870 71 0 Uretheral (Porter) 300 Other: Voiding Method Indwelling Catheter Indwelling Catheter # Bowel Movements 1 - Constitutional General appearance: Present: no acute distress - Respiratory Details: Intubated - Gastrointestinal Gastrointestinal Comment(s): Soft, distention improved, no rebound or guarding - Labs CBC & Chem 7: 02/03/20 05:00 02/03/20 05:00 Labs: Abnormal Lab Results - Last 24 Hours (Table) 02/02/20 02/02/20 02/02/20 Range/Units 12:32 18:46 20:44 WBC (3.8-10.6) k/uL RBC (4.30-5.90) m/uL Hgb (13.0-17.5) gm/dL Hct (39.0-53.0) % MCHC (31.0-37.0) g/dL RDW (11.5-15.5) % Neutrophils # (1.3-7.7) k/uL Lymphocytes # (1.0-4.8) k/uL PT 26.2 H (9.0-12.0) sec INR 2.7 H (<1.2) APTT (22.0-30.0) sec ABG pO2 (83-108) mmHg ABG O2 Saturation (94-97) % Carbon Dioxide (22-30) mmol/L BUN (9-20) mg/dL Creatinine (0.66-1.25) mg/dL Glucose (74-99) mg/dL POC Glucose (mg/dL) 132 H 137 H (75-99) mg/dL Plasma Lactic Acid Noel (0.7-2.0) mmol/L Calcium (8.4-10.2) mg/dL Troponin I (0.000-0.034) ng/mL Total Protein (6.3-8.2) g/dL Albumin (3.5-5.0) g/dL 02/02/20 02/02/20 02/02/20 Range/Units 22:21 22:25 22:25 WBC 12.9 H (3.8-10.6) k/uL RBC 3.45 L (4.30-5.90) m/uL Hgb 10.0 L (13.0-17.5) gm/dL Hct 33.6 L (39.0-53.0) % MCHC 29.7 L (31.0-37.0) g/dL RDW 16.0 H (11.5-15.5) % Neutrophils # 10.3 H (1.3-7.7) k/uL Lymphocytes # (1.0-4.8) k/uL PT (9.0-12.0) sec INR (<1.2) APTT (22.0-30.0) sec ABG pO2 (83-108) mmHg ABG O2 Saturation (94-97) % Carbon Dioxide 20 L (22-30) mmol/L BUN 85 H (9-20) mg/dL Creatinine 4.14 H (0.66-1.25) mg/dL Glucose 137 H (74-99) mg/dL POC Glucose (mg/dL) 161 H (75-99) mg/dL Plasma Lactic Acid Noel (0.7-2.0) mmol/L Calcium (8.4-10.2) mg/dL Troponin I (0.000-0.034) ng/mL Total Protein 6.1 L (6.3-8.2) g/dL Albumin 3.2 L (3.5-5.0) g/dL 02/02/20 02/02/20 02/03/20 Range/Units 22:30 22:48 02:36 WBC (3.8-10.6) k/uL RBC (4.30-5.90) m/uL Hgb (13.0-17.5) gm/dL Hct (39.0-53.0) % MCHC (31.0-37.0) g/dL RDW (11.5-15.5) % Neutrophils # (1.3-7.7) k/uL Lymphocytes # (1.0-4.8) k/uL PT (9.0-12.0) sec INR (<1.2) APTT (22.0-30.0) sec ABG pO2 82 L (83-108) mmHg ABG O2 Saturation (94-97) % Carbon Dioxide (22-30) mmol/L BUN (9-20) mg/dL Creatinine (0.66-1.25) mg/dL Glucose (74-99) mg/dL POC Glucose (mg/dL) (75-99) mg/dL Plasma Lactic Acid Noel 2.8 H* 2.4 H* (0.7-2.0) mmol/L Calcium (8.4-10.2) mg/dL Troponin I (0.000-0.034) ng/mL Total Protein (6.3-8.2) g/dL Albumin (3.5-5.0) g/dL 02/03/20 02/03/20 02/03/20 Range/Units 05:00 05:00 05:00 WBC 16.1 H (3.8-10.6) k/uL RBC 3.34 L (4.30-5.90) m/uL Hgb 9.8 L (13.0-17.5) gm/dL Hct 32.0 L (39.0-53.0) % MCHC 30.6 L (31.0-37.0) g/dL RDW 15.9 H (11.5-15.5) % Neutrophils # 13.7 H (1.3-7.7) k/uL Lymphocytes # 0.9 L (1.0-4.8) k/uL PT (9.0-12.0) sec INR (<1.2) APTT (22.0-30.0) sec ABG pO2 (83-108) mmHg ABG O2 Saturation (94-97) % Carbon Dioxide (22-30) mmol/L BUN 86 H (9-20) mg/dL Creatinine 4.60 H (0.66-1.25) mg/dL Glucose 131 H (74-99) mg/dL POC Glucose (mg/dL) (75-99) mg/dL Plasma Lactic Acid Noel (0.7-2.0) mmol/L Calcium 7.9 L (8.4-10.2) mg/dL Troponin I 0.864 H* (0.000-0.034) ng/mL Total Protein (6.3-8.2) g/dL Albumin (3.5-5.0) g/dL 02/03/20 02/03/20 02/03/20 Range/Units 05:26 06:15 06:47 WBC (3.8-10.6) k/uL RBC (4.30-5.90) m/uL Hgb (13.0-17.5) gm/dL Hct (39.0-53.0) % MCHC (31.0-37.0) g/dL RDW (11.5-15.5) % Neutrophils # (1.3-7.7) k/uL Lymphocytes # (1.0-4.8) k/uL PT 28.2 H (9.0-12.0) sec INR 2.9 H (<1.2) APTT 33.3 H (22.0-30.0) sec ABG pO2 153 H (83-108) mmHg ABG O2 Saturation 99.4 H (94-97) % Carbon Dioxide (22-30) mmol/L BUN (9-20) mg/dL Creatinine (0.66-1.25) mg/dL Glucose (74-99) mg/dL POC Glucose (mg/dL) 121 H (75-99) mg/dL Plasma Lactic Acid Noel (0.7-2.0) mmol/L Calcium (8.4-10.2) mg/dL Troponin I (0.000-0.034) ng/mL Total Protein (6.3-8.2) g/dL Albumin (3.5-5.0) g/dL 02/03/20 02/03/20 Range/Units 07:16 11:04 WBC (3.8-10.6) k/uL RBC (4.30-5.90) m/uL Hgb (13.0-17.5) gm/dL Hct (39.0-53.0) % MCHC (31.0-37.0) g/dL RDW (11.5-15.5) % Neutrophils # (1.3-7.7) k/uL Lymphocytes # (1.0-4.8) k/uL PT (9.0-12.0) sec INR (<1.2) APTT (22.0-30.0) sec ABG pO2 (83-108) mmHg ABG O2 Saturation (94-97) % Carbon Dioxide (22-30) mmol/L BUN (9-20) mg/dL Creatinine (0.66-1.25) mg/dL Glucose (74-99) mg/dL POC Glucose (mg/dL) 115 H (75-99) mg/dL Plasma Lactic Acid Noel 2.4 H* (0.7-2.0) mmol/L Calcium (8.4-10.2) mg/dL Troponin I (0.000-0.034) ng/mL Total Protein (6.3-8.2) g/dL Albumin (3.5-5.0) g/dL Assessment and Plan Plan: 79-year-old male with hematemesis and abdominal distention - Nasogastric tube is in place and has been on low intermittent suction. Abdominal distention appears to be improving. GI recommendations. Okay from a surgical perspective to begin tube feeds at a low rate and residual check. No plan for acute surgical intervention.
[2020-02-03] MEDS ORDERED: VANCOMYCIN 1,500 MG in SODIUM CHLORIDE 0.9% 250 ML IVPB ONE (13:00)
--- NOTE | 2020-02-03 13:44 | P.PCN ---
Date of Procedure: 02/03/20 Preoperative Diagnosis: Acute renal failure, aspiration pneumonia, severe sepsis, chronic systolic heart failure Postoperative Diagnosis: As above Procedure(s) Performed: Central line Anesthesia: local Surgeon: Manoj Ali Condition: critical Disposition: ICU Indications for Procedure: As above Operative Findings: As below Description of Procedure: Patient prepared and the draped in a usual fashion and under aseptic technique triple-lumen catheter inserted into the right internal jugular vein via posterior approach all ports are flushed patient tolerated procedure well no complication noted chest x-ray pending
--- NOTE | 2020-02-03 13:46 | P.PCN ---
Date of Procedure: 02/03/20 Preoperative Diagnosis: Severe sepsis, right-sided aspiration pneumonia, acute on chronic systolic heart failure, acute renal failure Postoperative Diagnosis: As above Procedure(s) Performed: Right arterial line radial artery Anesthesia: local Surgeon: Manoj Ali Condition: critical Disposition: ICU Indications for Procedure: As above Operative Findings: As below Description of Procedure: Patient prepared and draped in a usual manner, under modified Seldinger technique and aseptic condition right radial A-line has been placed in the right radial artery patient tolerated the procedure well no complication noted
--- NOTE | 2020-02-03 14:21 | XR ---
EXAMINATION TYPE: XR chest 1V portable DATE OF EXAM: 02/03/2020 HISTORY: Central line placement. REFERENCE: Previous study of earlier today. FINDINGS: The patient is ET tube and NG tube remain in place, unchanged in appearance. A right digital intern al jugular catheter is been inserted. Its tip is within the superior vena cava. A bipolar pacemaker i s in place on the left. There is continuing opacity in the right hemithorax. This has improved however. Heart size is mildly prominent. There is airspace disease in the left lung base. I suspect small, bilateral effusions. IMPRESSION: 1. SATISFACTORY LINE PLACEMENT WITHOUT EVIDENCE OF PNEUMOTHORAX. 2. IMPROVED AERATION OF THE RIGHT LUNG.
--- NOTE | 2020-02-03 14:37 | PN ---
PROGRESS NOTE Mr. Long is a known case of acute on chronic heart failure, cardiomyopathy, COPD. Patient has been on IV dobutamine and also IV Lasix drip. Last night, patient had episode of ventricular fibrillation requiring shocks. He is still intubated. He is getting hemodialysis. He is also on amiodarone drip. Overall his clinical status has deteriorated. He is intubated, sedated. Chest x-ray showed evidence of right-sided infiltrate or effusion. There is also right sided effusion. LAB VALUES: Hemoglobin 9.8. White count is 16,000. INR 2.9. Patient will continue his current medical therapy. Creatinine is 4.6. Overall prognosis poor. IMPRESSION: 1. Acute on chronic congestive heart failure. 2. Renal failure. 3. Status post cardiac arrest and ventricular fibrillation. Prognosis is poor. Continue current medical therapy. CELESTE / ZENY: [id number] /
[2020-02-03] MEDS: NOREPINEPHRINE 4 MG in SODIUM CHLORIDE 0.9% 250 ML IV SCH (14:50)
--- NOTE | 2020-02-03 15:50 | P.CONS ---
History of Present Illness - Reason for Consult Consult date: 02/02/20 Coffee-ground emesis Requesting physician: Adán Bynum - Chief Complaint Shortness of breath - History of Present Illness 7-year-old male with multiple medical comorbidities including congestive heart failure, valvular disease including moderate aortic stenosis, chronic kidney disease, hypertension, diabetes mellitus, osteoarthritis who presented to the hospital due to increasing shortness of breath. The patient had been decreasing Lasix therapy at home due to frequent urination. He presented with worsening shortness of breath over the past year. Hemoglobin has remained stable in the 9-10 range during hospitalization. However the patient subsequently developed multiple episodes of coffee-ground emesis. Testing of gastric output was positive for occult blood. NG tube was placed with hemoglobin stable at 9.8 today. Patient is seen in the ICU where he is somewhat lethargic and unable to provide little history. Review of Systems ROS unobtainable: due to mental status (Unable to obtain review of systems from the patient due to current mental status.) Past Medical History Past Medical History: Atrial Fibrillation, Heart Failure, Diabetes Mellitus, GERD/Reflux, Hyperlipidemia, Hypertension, Osteoarthritis (OA), Renal Disease Additional Past Medical History / Comment(s): Cardiomyopathy, pulmonary hypertension, pt denies COPD as previously charted, pt no longer has hyperlipidemia-taken off medication, IDDM type II, bilateral feet peripheral n europathy, recent past L great toe ulcer/osteomylitis-gram negative skin tammie, CKD stage IV-has occluded fistula L arm (never recieved dialysis), UTI with sepsis, chronic back/neck pain,. PUD, Left great toe osteomyelitis - 2017 History of Any Multi-Drug Resistant Organisms: None Reported Past Surgical History: Adenoidectomy, Orthopedic Surgery, Pacemaker, Tonsillectomy Additional Past Surgical History / Comment(s): lumbar facet blocks, lt breast cyst removed as child, bilateral cataract removal with lens implants,. Fistula left upper arm to use for dialysis-never used it-pt's stated "it's been occluded for 5 years", colonoscopy, picc line insertion/since removed. Total right knee replacement 02/2018 Past Anesthesia/Blood Transfusion Reactions: No Reported Reaction Type of Cardiac Device: Permanent Pacemaker Device Placement Date:: 2012 Past Psychological History: No Psychological Hx Reported Additional Psychological History / Comment(s): pt lives with his beckie in a 2 story home that has 1 front step and 12 steps to 2nd level where bedroom is. has 1 pet bird. no outside services recieved and no medical equipment. Pt drives. Smoking Status: Never smoker Past Alcohol Use History: Rare Additional Past Alcohol Use History / Comment(s): STARTED SMOKING 1964, QUIT 1993- 1-2 ppd Past Drug Use History: None Reported - Past Family History Mother Family Medical History: Diabetes Mellitus Additional Family Medical History / Comment(s): type 2 in her 70's Father Family Medical History: Diabetes Mellitus Additional Family Medical History / Comment(s): dm type 2 in his 70's Medications and Allergies Home Medications Medication Instructions Recorded Confirmed Type Isosorbide Mononitrate [Isosorbide 15 mg PO DAILY@0900 11/12/15 01/29/20 History Mononitrate ER] Montelukast [Singulair] 10 mg PO HS 11/12/15 01/29/20 History Calcitriol 0.5 mcg PO SUTH 08/10/17 01/29/20 History INSULIN LISPRO (humaLOG) [humaLOG] See Protocol SQ ACHS 09/22/17 01/29/20 History Carbidopa-Levodopa 10-100 mg 1 tab PO BID 08/08/18 01/29/20 History [Sinemet 10-100 mg] Albuterol Sulfate [Ventolin HFA] 2 puff INHALATION RT-Q6H PRN 01/29/20 01/29/20 History Allopurinol [Zyloprim] 100 mg PO Q12H 01/29/20 01/29/20 History Ammonium Lactate Cream [Lac-Hydrin 1 applic TOPICAL HS 01/29/20 01/29/20 History 12% Cream] Carvedilol [Coreg] 12.5 mg PO BID 01/29/20 01/29/20 History Furosemide [Lasix] 20 mg PO BID 01/29/20 01/29/20 History Ipratropium-Albuterol Nebulize 3 ml INHALATION RT-Q8H PRN 01/29/20 01/29/20 History [Duoneb 0.5 mg-3 mg/3 ml Soln] Potassium Chloride [Klor-Con 10] 10 meq PO DAILY 01/29/20 01/29/20 History Warfarin Sodium [Coumadin] 5 mg PO SUMOWEFR 01/29/20 01/29/20 History Warfarin [Coumadin] 7.5 mg PO TUTHSA 01/29/20 01/29/20 History Zolpidem [Ambien] 10 mg PO HS 01/29/20 01/29/20 History oxyCODONE HCL [oxyCODONE HCL (IR)] 10 mg PO Q8H PRN 01/29/20 01/29/20 History Allergies Allergy/AdvReac Type Severity Reaction Status Date / Time midodrine Allergy Rash/Hives Verified 01/29/20 17:26 sodium bicarbonate Allergy Itching Verified 01/29/20 17:26 Physical Exam Vitals: Vital Signs Temp Pulse Pulse Resp BP Pulse Ox 02/02/20 08:00 98.7 F 91 20 121/84 100 02/02/20 07:27 100 02/02/20 07:18 98 02/02/20 03:39 100 02/02/20 03:27 99 02/02/20 03:06 98.1 F 101 H 22 126/76 97 02/02/20 00:04 98.1 F 98 20 142/80 100 02/01/20 23:46 97 02/01/20 23:31 97 99 02/01/20 20:35 98.3 F 87 18 107/68 97 02/01/20 20:09 99 02/01/20 19:59 97 02/01/20 16:00 98.3 F 97 18 118/68 97 02/01/20 15:41 96 02/01/20 15:32 92 02/01/20 12:00 97.9 F 113 H 18 108/77 98 02/01/20 11:27 98 02/01/20 11:17 102 H Intake and Output 02/01/20 02/02/20 02/02/20 22:59 06:59 14:59 Intake Total 100 Output Total 450 1050 300 Balance -450 -950 -300 Intake: Intake, IV Titration 100 Amount Furosemide 100 mg In 100 Sodium Chloride 0.9% 90 ml @ 15 MG/HR 15 mls/hr IV .Q6H40M [facility] Rx#: [id number] Oral 0 Output: Urine 450 1050 300 Uretheral (Porter) 300 Other: Voiding Method Indwelling Catheter Indwelling Catheter Indwelling Catheter Weight 92.5 kg On physical examination, patient appears comfortable in no apparent distress. HEAD: Normocephalic, atraumatic. EYES: No scleral icterus. No conjunctival injection. MOUTH: No lesions, tongue midline. NECK: Trachea midline, no gross abnormalities. CHEST: Decreased air entry in all lung chacon. HEART: S1-S2 appreciated. ABDOMEN: Soft, obese, nontender. Bowel sounds are positive. No organomegaly. No guarding or rigidity. EXTREMITIES: Bilateral pedal edema. SKIN: No rashes, no jaundice. NEUROLOGIC: Alert but not oriented. No focal deficits. Results CBC & Chem 7: 02/03/20 05:00 02/03/20 05:00 Labs: Abnormal Lab Results - Last 24 Hours (Table) 02/01/20 02/01/20 02/01/20 Range/Units 11:24 16:38 19:57 WBC (3.8-10.6) k/uL RBC (4.30-5.90) m/uL Hgb (13.0-17.5) gm/dL Hct (39.0-53.0) % MCHC (31.0-37.0) g/dL RDW (11.5-15.5) % Neutrophils # (1.3-7.7) k/uL Lymphocytes # (1.0-4.8) k/uL PT (9.0-12.0) sec INR (<1.2) ABG pO2 (83-108) mmHg ABG Total CO2 (19-24) mmol/L ABG O2 Saturation (94-97) % BUN (9-20) mg/dL Creatinine (0.66-1.25) mg/dL Glucose (74-99) mg/dL POC Glucose (mg/dL) 123 H 114 H 138 H (75-99) mg/dL Calcium (8.4-10.2) mg/dL Total Protein (6.3-8.2) g/dL Albumin (3.5-5.0) g/dL 02/01/20 02/01/20 02/01/20 Range/Units 22:17 22:36 22:36 WBC (3.8-10.6) k/uL RBC 3.32 L (4.30-5.90) m/uL Hgb 9.5 L (13.0-17.5) gm/dL Hct 31.4 L (39.0-53.0) % MCHC 30.4 L (31.0-37.0) g/dL RDW 15.8 H (11.5-15.5) % Neutrophils # 8.6 H (1.3-7.7) k/uL Lymphocytes # 0.5 L (1.0-4.8) k/uL PT 25.0 H (9.0-12.0) sec INR 2.6 H (<1.2) ABG pO2 (83-108) mmHg ABG Total CO2 (19-24) mmol/L ABG O2 Saturation (94-97) % BUN (9-20) mg/dL Creatinine (0.66-1.25) mg/dL Glucose (74-99) mg/dL POC Glucose (mg/dL) 146 H (75-99) mg/dL Calcium (8.4-10.2) mg/dL Total Protein (6.3-8.2) g/dL Albumin (3.5-5.0) g/dL 02/01/20 02/01/20 02/02/20 Range/Units 22:36 22:36 05:42 WBC (3.8-10.6) k/uL RBC (4.30-5.90) m/uL Hgb (13.0-17.5) gm/dL Hct (39.0-53.0) % MCHC (31.0-37.0) g/dL RDW (11.5-15.5) % Neutrophils # (1.3-7.7) k/uL Lymphocytes # (1.0-4.8) k/uL PT (9.0-12.0) sec INR (<1.2) ABG pO2 261 H (83-108) mmHg ABG Total CO2 26 H (19-24) mmol/L ABG O2 Saturation 99.9 H (94-97) % BUN 78 H (9-20) mg/dL Creatinine 3.91 H (0.66-1.25) mg/dL Glucose 129 H (74-99) mg/dL POC Glucose (mg/dL) 157 H (75-99) mg/dL Calcium (8.4-10.2) mg/dL Total Protein 6.1 L (6.3-8.2) g/dL Albumin 3.2 L (3.5-5.0) g/dL 02/02/20 02/02/20 Range/Units 06:08 06:08 WBC 15.3 H (3.8-10.6) k/uL RBC 3.17 L (4.30-5.90) m/uL Hgb 9.8 L (13.0-17.5) gm/dL Hct 30.2 L (39.0-53.0) % MCHC (31.0-37.0) g/dL RDW 15.7 H (11.5-15.5) % Neutrophils # (1.3-7.7) k/uL Lymphocytes # (1.0-4.8) k/uL PT (9.0-12.0) sec INR (<1.2) ABG pO2 (83-108) mmHg ABG Total CO2 (19-24) mmol/L ABG O2 Saturation (94-97) % BUN 83 H (9-20) mg/dL Creatinine 3.84 H (0.66-1.25) mg/dL Glucose 135 H (74-99) mg/dL POC Glucose (mg/dL) (75-99) mg/dL Calcium 8.3 L (8.4-10.2) mg/dL Total Protein 6.0 L (6.3-8.2) g/dL Albumin 3.1 L (3.5-5.0) g/dL CT scan - abdomen: report reviewed (Computed tomography scan of the abdomen significantly distended stomach with NG tube noted.) Assessment and Plan (1) Iron (Fe) deficiency anemia Narrative/Plan: 79-year-old male with multiple medical comorbidities who is seen in the intensive care unit. He had been hospitalized for increasing shortness of breath and is being treated for exacerbations of COPD and congestive heart failure. Patient had altered mental status and was sent to the ICU for further investigation. He also had multiple episodes of coffee-ground emesis. Hemoglobin has remained stable at 9.8 today. Computed tomography scan of the abdomen without any acute process noted, however there was some gastric distention with an NG tube in place. No further vomiting since patient has been in the ICU. We'll continue conservative management with PPI therapy and nasogastric tube. Surgical service also following. Iron deficiency anemia anemia is likely multifactorial in the setting of chronic kidney disease and anemia of chronic disease, although patient did have coffee- ground emesis there's been no precipitous fall in his hemoglobin. Current Visit: Yes Status: Acute Code(s): D50.9 - IRON DEFICIENCY ANEMIA, UNSPECIFIED SNOMED Code(s): 53013697 (2) Coffee ground emesis Current Visit: Yes Status: Acute Code(s): K92.0 - HEMATEMESIS SNOMED Code(s): 06829884 Plan: Supportive care Nothing by mouth A nasogastric tube on low intermittent suction Continue to monitor CBC and transfuse as needed Continue Protonix IV 40 mg twice daily Continue treatment of other medical comorbidities Appreciate recommendations from surgical service, florist's decorator service in nephrology No plans for endoscopic evaluation at this time given stability of hemoglobin, absence of any further vomiting since transferred Prognosis guarded given multiple medical comorbidities Thank you for allowing us to participate in the care of the patient
--- NOTE | 2020-02-03 15:54 | P.PN ---
Subjective Progress Note Date: 02/03/20 Principal diagnosis: Iron deficiency anemia, coffee-ground emesis Patient had acute cardiac event overnight and is status post intubation. No further vomiting with NG tube in place and on low intermittent suction. Objective - Vital Signs Vital signs: Vital Signs Temp 98.7 F 02/03/20 04:00 Pulse 49 L 02/03/20 08:15 Resp 17 02/03/20 07:00 BP 105/44 02/03/20 07:00 Pulse Ox 99 02/03/20 07:00 Intake & Output 02/02/20 02/03/20 02/03/20 18:59 06:59 18:59 Intake Total 632.15 771.124 335.940 Output Total 920 71 0 Balance -287.85 700.124 335.940 Weight 92.5 kg 91.8 kg Intake: IV 329.45 275 20 .9 @ 20 150 275 20 DOBUTamine DRIP 500 mg In 59.45 Dextrose/Water 1 250ml. bag @ 2.5 MCG/KG/MIN 7. 365 mls/hr IV .Q24H [facility] Rx#:[id number] Furosemide 100 mg In 120 Sodium Chloride 0.9% 90 ml @ 15 MG/HR 15 mls/hr IV .Q6H40M [facility] Rx#: [id number] Intake, IV Titration 302.7 496.124 315.940 Amount Cefepime 1 gm In Sodium 100 Chloride 0.9% 50 ml @ 100 mls/hr IVPB Q12HR [facility] Rx #:[id number] DOBUTamine DRIP 500 mg In 2.7 Dextrose/Water 1 250ml. bag @ 2.5 MCG/KG/MIN 7. 365 mls/hr IV .Q24H [facility] Rx#:[id number] Furosemide 100 mg In 100 109.833 Sodium Chloride 0.9% 90 ml @ 15 MG/HR 15 mls/hr IV .Q6H40M [facility] Rx#: [id number] Norepinephrine 4 mg In 16.916 237.084 Sodium Chloride 0.9% 250 ml @ 0.05 MCG/KG/MIN 17. 621 mls/hr IV .[id number] [facility] Rx#:[id number] Propofol 1,000 mg In 69.375 78.856 Empty Bag 1 bag @ Titrate IV .Q0M [facility] Rx#: [id number] cefTRIAXone 1 gm In 100 Sodium Chloride 0.9% 50 ml @ 100 mls/hr IVPB Q24HR [facility] Rx#:[id number] metroNIDAZOLE-NS PMX 500 100 200 mg In Saline 1 100ml.bag @ 100 mls/hr IVPB Q8HR [facility] Rx#:[id number] Output: Gastric Drainage 50 Urine 870 71 0 Uretheral (Porter) 300 Other: Voiding Method Indwelling Catheter Indwelling Catheter # Bowel Movements 1 - Exam On physical examination, patient appears comfortable in no apparent distress. HEAD: Normocephalic, atraumatic. EYES: No scleral icterus. No conjunctival injection. MOUTH: No lesions, tongue midline, ET tube in place. NECK: Trachea midline, no gross abnormalities. CHEST: Coarse respiratory noises in all lung chacon. HEART: Regular rate and rhythm. ABDOMEN: Soft, obese, less distended. Bowel sounds are positive. No organomegaly. No guarding or rigidity. EXTREMITIES: Bilateral pedal edema. SKIN: No rashes, no jaundice. NEUROLOGIC: Intubated and sedated. - Labs CBC & Chem 7: 02/03/20 05:00 02/03/20 05:00 Labs: Abnormal Lab Results - Last 24 Hours (Table) 02/02/20 02/02/20 02/02/20 Range/Units 10:04 12:32 18:46 WBC (3.8-10.6) k/uL RBC (4.30-5.90) m/uL Hgb (13.0-17.5) gm/dL Hct (39.0-53.0) % MCHC (31.0-37.0) g/dL RDW (11.5-15.5) % Neutrophils # (1.3-7.7) k/uL Lymphocytes # (1.0-4.8) k/uL PT 26.2 H (9.0-12.0) sec INR 2.7 H (<1.2) APTT (22.0-30.0) sec ABG pO2 (83-108) mmHg ABG O2 Saturation (94-97) % Carbon Dioxide (22-30) mmol/L BUN (9-20) mg/dL Creatinine (0.66-1.25) mg/dL Glucose (74-99) mg/dL POC Glucose (mg/dL) 139 H 132 H (75-99) mg/dL Plasma Lactic Acid Noel (0.7-2.0) mmol/L Calcium (8.4-10.2) mg/dL Troponin I (0.000-0.034) ng/mL Total Protein (6.3-8.2) g/dL Albumin (3.5-5.0) g/dL 02/02/20 02/02/20 02/02/20 Range/Units 20:44 22:21 22:25 WBC (3.8-10.6) k/uL RBC (4.30-5.90) m/uL Hgb (13.0-17.5) gm/dL Hct (39.0-53.0) % MCHC (31.0-37.0) g/dL RDW (11.5-15.5) % Neutrophils # (1.3-7.7) k/uL Lymphocytes # (1.0-4.8) k/uL PT (9.0-12.0) sec INR (<1.2) APTT (22.0-30.0) sec ABG pO2 (83-108) mmHg ABG O2 Saturation (94-97) % Carbon Dioxide 20 L (22-30) mmol/L BUN 85 H (9-20) mg/dL Creatinine 4.14 H (0.66-1.25) mg/dL Glucose 137 H (74-99) mg/dL POC Glucose (mg/dL) 137 H 161 H (75-99) mg/dL Plasma Lactic Acid Noel (0.7-2.0) mmol/L Calcium (8.4-10.2) mg/dL Troponin I (0.000-0.034) ng/mL Total Protein 6.1 L (6.3-8.2) g/dL Albumin 3.2 L (3.5-5.0) g/dL 02/02/20 02/02/20 02/02/20 Range/Units 22:25 22:30 22:48 WBC 12.9 H (3.8-10.6) k/uL RBC 3.45 L (4.30-5.90) m/uL Hgb 10.0 L (13.0-17.5) gm/dL Hct 33.6 L (39.0-53.0) % MCHC 29.7 L (31.0-37.0) g/dL RDW 16.0 H (11.5-15.5) % Neutrophils # 10.3 H (1.3-7.7) k/uL Lymphocytes # (1.0-4.8) k/uL PT (9.0-12.0) sec INR (<1.2) APTT (22.0-30.0) sec ABG pO2 82 L (83-108) mmHg ABG O2 Saturation (94-97) % Carbon Dioxide (22-30) mmol/L BUN (9-20) mg/dL Creatinine (0.66-1.25) mg/dL Glucose (74-99) mg/dL POC Glucose (mg/dL) (75-99) mg/dL Plasma Lactic Acid Noel 2.8 H* (0.7-2.0) mmol/L Calcium (8.4-10.2) mg/dL Troponin I (0.000-0.034) ng/mL Total Protein (6.3-8.2) g/dL Albumin (3.5-5.0) g/dL 02/03/20 02/03/20 02/03/20 Range/Units 02:36 05:00 05:00 WBC (3.8-10.6) k/uL RBC (4.30-5.90) m/uL Hgb (13.0-17.5) gm/dL Hct (39.0-53.0) % MCHC (31.0-37.0) g/dL RDW (11.5-15.5) % Neutrophils # (1.3-7.7) k/uL Lymphocytes # (1.0-4.8) k/uL PT (9.0-12.0) sec INR (<1.2) APTT (22.0-30.0) sec ABG pO2 (83-108) mmHg ABG O2 Saturation (94-97) % Carbon Dioxide (22-30) mmol/L BUN 86 H (9-20) mg/dL Creatinine 4.60 H (0.66-1.25) mg/dL Glucose 131 H (74-99) mg/dL POC Glucose (mg/dL) (75-99) mg/dL Plasma Lactic Acid Noel 2.4 H* (0.7-2.0) mmol/L Calcium 7.9 L (8.4-10.2) mg/dL Troponin I 0.864 H* (0.000-0.034) ng/mL Total Protein (6.3-8.2) g/dL Albumin (3.5-5.0) g/dL 02/03/20 02/03/20 02/03/20 Range/Units 05:00 05:26 06:15 WBC 16.1 H (3.8-10.6) k/uL RBC 3.34 L (4.30-5.90) m/uL Hgb 9.8 L (13.0-17.5) gm/dL Hct 32.0 L (39.0-53.0) % MCHC 30.6 L (31.0-37.0) g/dL RDW 15.9 H (11.5-15.5) % Neutrophils # 13.7 H (1.3-7.7) k/uL Lymphocytes # 0.9 L (1.0-4.8) k/uL PT 28.2 H (9.0-12.0) sec INR 2.9 H (<1.2) APTT 33.3 H (22.0-30.0) sec ABG pO2 153 H (83-108) mmHg ABG O2 Saturation 99.4 H (94-97) % Carbon Dioxide (22-30) mmol/L BUN (9-20) mg/dL Creatinine (0.66-1.25) mg/dL Glucose (74-99) mg/dL POC Glucose (mg/dL) (75-99) mg/dL Plasma Lactic Acid Noel (0.7-2.0) mmol/L Calcium (8.4-10.2) mg/dL Troponin I (0.000-0.034) ng/mL Total Protein (6.3-8.2) g/dL Albumin (3.5-5.0) g/dL 02/03/20 02/03/20 Range/Units 06:47 07:16 WBC (3.8-10.6) k/uL RBC (4.30-5.90) m/uL Hgb (13.0-17.5) gm/dL Hct (39.0-53.0) % MCHC (31.0-37.0) g/dL RDW (11.5-15.5) % Neutrophils # (1.3-7.7) k/uL Lymphocytes # (1.0-4.8) k/uL PT (9.0-12.0) sec INR (<1.2) APTT (22.0-30.0) sec ABG pO2 (83-108) mmHg ABG O2 Saturation (94-97) % Carbon Dioxide (22-30) mmol/L BUN (9-20) mg/dL Creatinine (0.66-1.25) mg/dL Glucose (74-99) mg/dL POC Glucose (mg/dL) 121 H (75-99) mg/dL Plasma Lactic Acid Noel 2.4 H* (0.7-2.0) mmol/L Calcium (8.4-10.2) mg/dL Troponin I (0.000-0.034) ng/mL Total Protein (6.3-8.2) g/dL Albumin (3.5-5.0) g/dL Assessment and Plan (1) Iron (Fe) deficiency anemia Narrative/Plan: 79-year-old male with multiple medical comorbidities who is seen in the intensive care unit. He had been hospitalized for increasing shortness of breath and is being treated for exacerbations of COPD and congestive heart failure. Patient had altered mental status and was sent to the ICU for further investigation. He also had multiple episodes of coffee-ground emesis. Hemoglobin has remained stable at 9.8 today. Computed tomography scan of the abdomen without any acute process noted, however there was some gastric distention with an NG tube in place. No further vomiting since patient has been in the ICU. We'll continue conservative management with PPI therapy and nasogastric tube. Surgical service also following. Iron deficiency anemia anemia is likely multifactorial in the setting of chronic kidney disease and anemia of chronic disease, although patient did have coffee- ground emesis there's been no precipitous fall in his hemoglobin. Current Visit: Yes Status: Acute Code(s): D50.9 - IRON DEFICIENCY ANEMIA, UNSPECIFIED SNOMED Code(s): 45014640 (2) Coffee ground emesis Current Visit: Yes Status: Acute Code(s): K92.0 - HEMATEMESIS SNOMED Code(s): 39177855 Plan: Supportive care Okay to start tube feeds, would recommend starting slow at 10 mL per hour Continue to monitor CBC and transfuse as needed Continue Protonix IV 40 mg twice daily Continue treatment of other medical comorbidities Appreciate recommendations from surgical service, research technologist service in nephrology No plans for endoscopic evaluation at this time given stability of hemoglobin, absence of any further vomiting since transferred Prognosis guarded given multiple medical comorbidities Thank you for allowing us to participate in the care of the patient
--- NOTE | 2020-02-03 16:00 | PN ---
PROGRESS NOTE DATE OF SERVICE: 02/03/2020 REASON FOR FOLLOW UP: Lower extremity cellulitis and aspiration pneumonia. INTERVAL HISTORY: The patient did go into respiratory distress last night. The patient is getting intubated. The patient is currently on pressor support, off Levophed. FiO2 is currently 70%. Some blood-tinged secretion through the ET per the nursing staff, but no diarrhea has been reported. PHYSICAL EXAMINATION: Blood pressure 112/53 with a pulse of 73, temperature is 98. He is 100% on 70% FiO2. General description is an elderly male lying in bed in no distress. Respiratory system: Unlabored breathing, clear to auscultation anteriorly. Heart S1, S2. Regular rate and rhythm. Abdomen soft, less distended. LABS: Hemoglobin 9.8, white count 16.1. Lactic acid 2.4, creatinine 4.60. Chest x-ray, improving infiltrate on the right. DIAGNOSTIC IMPRESSION AND PLAN: Patient with acute respiratory failure which is likely multifactorial with concern for possible aspiration pneumonia. The patient is currently on cefepime and Flagyl to continue. We will obtain sputum ( ) antibiotics. Continue supportive care. MMODL / IJN: [id number] /
[2020-02-03 16:39] LABS: Hepatitis B Surface AB- Quant 3.5 mIU/mL; Hepatitis B Surface Antibody Non-Reactive (Non-Reactive); Hepatitis B Surface Antigen Non-Reactive (Non-Reactive)
--- NOTE | 2020-02-03 16:49 | PN ---
PROGRESS NOTE Patient is seen for followup for chronic kidney disease and acute kidney injury. He was intubated early this morning. The patient also has an NG tube in place which shows bloody aspirate. He is currently sedated. He was also hypotensive. Levophed is at about 8 mics. We have proceeded to start renal replacement therapy. Vascular surgery was consulted and patient had a PermCath placed this morning. He is currently seen on dialysis. Urine output had dropped to 0-5 mL an hour. EXAMINATION: Today patient is on the vent, FiO2 70%. He is sedated, seems to be tolerating dialysis. Bilateral breath sounds are heard. Abdomen is soft. Examination of lower extremities shows chronic skin changes. Chronic edema is noted. Discoloration of toes on the right foot. LABEL PASTER exam cannot be performed. LAB: Show sodium 140, potassium 4.3, BUN 86, serum creatinine 4.6, troponin 0.864. Lactic acid 2.4. ASSESSMENT: 1. Chronic kidney disease stage 4 with acute kidney injury, currently oliguric with volume overload, started on hemodialysis. The patient is having his first treatment today. We will re-evaluate tomorrow for need for dialysis. 2. Volume overload, expect improvement with ongoing ultrafiltration with dialysis. The patient is maintained on Lasix drip which I will discontinue since he does not have significant urine output. 3. Congestive heart failure, acute on top of chronic, systolic. 4. Cardiomyopathy, ejection fraction 25-30% with moderate aortic stenosis, severe tricuspid regurg, severe pulmonary hypertension. 5. Right lower extremity cellulitis. 6. Chronic kidney disease mineral bone disorder, maintained on calcitriol. 7. Anemia of chronic disease, currently on Aranesp and maintained on IV iron. 8. Status post cardiac arrest and ventricular fibrillation. PLAN: DC Lasix drip. Hemodialysis today and then evaluate again for possible treatment tomorrow. Continue antibiotics. MMODL / IJN: [id number] /
[2020-02-03 16:50] LABS: Glucose,Whole Blood 110 mg/dL (75-99)
[2020-02-03 19:38] LABS: Glucose,Whole Blood 103 mg/dL (75-99)
[2020-02-03] MEDS: MONTELUKAST 10 MG TAB PO SCH (20:40)
[2020-02-03] MEDS: TAMSULOSIN 0.4 MG CAP.ER.24H PO SCH (20:43)
[2020-02-03] MEDS: NOREPINEPHRINE 8 MG in SODIUM CHLORIDE 0.9% 250 ML IV SCH (21:49)
[2020-02-03] MEDS: IPRATROPIUM-ALBUTEROL 3 ML NEB INHALATION PRN (23:56)
[2020-02-04 00:02] LABS: Glucose,Whole Blood 103 mg/dL (75-99)
[2020-02-04] MEDS: INSULIN ASPART (NovoLOG) 100 UNIT/ML VIAL SQ SCH ×6 (00:02→20:33)
[2020-02-04] MEDS: PROPOFOL 1,000 MG in EMPTY BAG 1 BAG IV SCH ×4 (01:21→19:14)
[2020-02-04] MEDS ORDERED: AMIODARONE 300 MG in DEXTROSE 5% IN WATER 250 ML IV SCH ×2 (01:30)
[2020-02-04] MEDS: IPRATROPIUM-ALBUTEROL 3 ML NEB INHALATION PRN (03:37)
[2020-02-04 04:48] LABS: Glucose,Whole Blood 82 mg/dL (75-99)
[2020-02-04 04:50] LABS: Anisocytosis Slight; Basophils % (A) 0 %; Eosinophils # (A) 0.8 k/uL (0-0.7); Eosinophils % (A) 6 %; HCT 31.8 % (39.0-53.0); HGB 9.6 gm/dL (13.0-17.5); Hypochromasia Moderate; Lymphocytes # (A) 0.6 k/uL (1.0-4.8); Lymphocytes % (A) 5 %; MCH 28.4 pg (25.0-35.0); MCHC 30.3 g/dL (31.0-37.0); MCV 93.7 fL (80.0-100.0); Mean Platelet Volume 8.8; Monocytes # (A) 0.6 k/uL (0-1.0); Monocytes % (A) 4 %; Neutrophils # (A) 11.1 k/uL (1.3-7.7); Neutrophils % (A) 84 %; Platelet Count 171 k/uL (150-450); RDW 16.7 % (11.5-15.5); WBC 13.2 k/uL (3.8-10.6)
[2020-02-04 05:05] LABS: Calcium 7.7 mg/dL (8.4-10.2); Potassium 3.5 mmol/L (3.5-5.1)
[2020-02-04 05:33] LABS: ABG Base Excess -0.9 mmol/L; ABG HCO3 24 mmol/L (21-25); ABG Oxygen Saturation 99.3 % (94-97); ABG PCO2 37 mmHg (35-45); ABG PH 7.41 (7.35-7.45); ABG PO2 142 mmHg (83-108); ABG TCO2 25 mmol/L (19-24); Allen Test Performed? Yes
[2020-02-04] MEDS: metroNIDAZOLE-NS PMX 500 MG in SALINE 1 100ML.BAG IVPB SCH ×3 (05:47→21:18)
--- NOTE | 2020-02-04 06:42 | XR ---
EXAMINATION TYPE: XR chest 1V portable DATE OF EXAM: 02/04/2020 HISTORY: ETT and NGT placement/ COPD/ CHF. REFERENCE: Previous study dated 02/03/2020. FINDINGS: There is ET tube, NG tube and right internal jugular catheter remain in place, unchanged in appearance. There is a bipolar pacemaker place on the left. The heart is enlarged. There is bibasilar airspace disease. There are bilateral effusions. IMPRESSION: NO SIGNIFICANT CHANGE IN THE APPEARANCE OF THE CHEST.
--- NOTE | 2020-02-04 07:10 | PN ---
PROGRESS NOTE 79-year-old white male in ICU on the ventilator. Systolic CHF. Had ventricular arrest last night requiring shock. He has acute hypoxemic respiratory failure, aspiration pneumonia, upper GI bleed, chronic gastric emesis, gastric distention, acute on chronic systolic heart failure, minor atrial regurg, bilateral pleural effusion, COPD, uncontrolled diabetes mellitus, atrial fibrillation, coagulopathy, stage 4 renal failure. He was given dialysis today. Will monitor electrolytes. Cardiovascular S1, S2. Lungs, rales at the bases. Hematology negative Homans. Psych, fair mood and affect. Neurologic, alert and oriented x3. White count is 15,000. He is fluid overload. Dialysis is being done. He is lying comfortably on the vent. ICU notes have been reviewed. LABS: BUN is 86, creatinine 4.6, hemoglobin 9.6. He has continued with dialysis for fluid overload and electrolyte abnormality. Monitor electrolytes, sugars, tube feed, ventilator. His oxygen is as noted. Hold Coumadin due to coagulopathy. Prognosis is extremely guarded, in the ICU. Extremely guarded ICU. MMODL / IJN: [id number] /
[2020-02-04] MEDS: IPRATROPIUM-ALBUTEROL 3 ML NEB INHALATION SCH ×4 (07:52→20:04)
[2020-02-04] MEDS: CHLORHEXIDINE GLUCONATE 15 ML CUP MUCOUS MEM SCH ×2 (09:29→20:32)
[2020-02-04] MEDS: CARBIDOPA-LEVODOPA 10-100 MG 1 EACH TAB PO SCH ×2 (09:30→21:17)
[2020-02-04] MEDS: METOLAZONE 5 MG TAB PO SCH ×2 (09:30→21:17)
[2020-02-04] MEDS: PANTOPRAZOLE 40 MG/10 ML VIAL IVP SCH ×2 (09:30→21:14)
[2020-02-04] MEDS: SENNOSIDES 8.6 MG TAB PO SCH ×2 (09:30→21:18)
[2020-02-04 09:34] LABS: Glucose,Whole Blood 68 mg/dL (75-99)
[2020-02-04] MEDS ORDERED: DEXTROSE 50% SYRINGE 50 ML IVP ONE (09:35)
[2020-02-04] MEDS: CARVEDILOL 3.125 MG TAB PO SCH ×2 (09:37→21:18)
[2020-02-04] MEDS: ISOSORBIDE MONONITRATE ER 15 MG TAB PO SCH (09:37)
[2020-02-04] MEDS: INSULIN DETEMIR (LEVEMIR) 100 UNIT/ML SYR SQ SCH (09:37)
[2020-02-04] MEDS: NOREPINEPHRINE 8 MG in SODIUM CHLORIDE 0.9% 250 ML IV SCH ×3 (09:47→23:07)
[2020-02-04 09:58] LABS: Glucose,Whole Blood 129 mg/dL (75-99)
[2020-02-04] MEDS ORDERED: VANCOMYCIN 1,500 MG in SODIUM CHLORIDE 0.9% 250 ML IVPB ONE (10:00)
[2020-02-04] MEDS: CEFEPIME 1 GM in SODIUM CHLORIDE 0.9% 50 ML IVPB SCH ×2 (10:17→21:15)
[2020-02-04] MEDS: SODIUM CHLORIDE 0.9% 1,000 ML IV SCH (10:18)
[2020-02-04] MEDS ORDERED: METOCLOPRAMIDE 5 MG/ML 2 ML VIAL IVP STA (10:56)
--- NOTE | 2020-02-04 11:35 | P.PN ---
Subjective Progress Note Date: 02/04/20 Principal diagnosis: Iron deficiency anemia, coffee-ground emesis Patient is seen in the ICU. No acute events overnight. He is currently intubated and sedated. He has been tolerating tube feeds with no signs or symptoms of GI bleeding. No bowel movements reported. Objective - Vital Signs Vital signs: Vital Signs Temp 98.4 F 02/04/20 08:00 Pulse 51 L 02/04/20 11:30 Resp 17 02/04/20 11:00 BP 105/50 02/04/20 11:00 Pulse Ox 98 02/04/20 11:00 Intake & Output 02/03/20 02/04/20 02/04/20 18:59 06:59 18:59 Intake Total 1652.140 996.669 614.372 Output Total 1100 195 15 Balance 552.140 801.669 599.372 Weight 91.8 kg 95.7 kg Intake: IV 505 255 100 .9 @ 20 20 Furosemide 100 mg In 165 15 Sodium Chloride 0.9% 90 ml @ 15 MG/HR 15 mls/hr IV .Q6H40M [facility] Rx#: [id number] Sodium Chloride 0.9% 1, 220 240 100 000 ml @ 20 mls/hr IV . Q24H [facility] Rx#:[id number] Sodium Ferric Gluconat- 100 Sucrose 125 mg In Sodium Chloride 0.9% 100 ml @ 100 mls/hr IVPB DAILY [facility] Rx#:[id number] Intake, IV Titration 1037.140 321.669 364.372 Amount Amiodarone 300 mg In 250.000 Dextrose 5% in Water 250 ml @ 0.5 MG/MIN 25 mls/hr IV .Q10H [facility] Rx#: [id number] Cefepime 1 gm In Sodium 100 Chloride 0.9% 50 ml @ 100 mls/hr IVPB Q12HR [facility] Rx #:[id number] Furosemide 100 mg In 187.5 100 Sodium Chloride 0.9% 90 ml @ 15 MG/HR 15 mls/hr IV .Q6H40M [facility] Rx#: [id number] Norepinephrine 4 mg In 366.071 25.023 Sodium Chloride 0.9% 250 ml @ 0.05 MCG/KG/MIN 17. 621 mls/hr IV .[id number] [facility] Rx#:[id number] Norepinephrine 8 mg In 74.309 167.982 Sodium Chloride 0.9% 250 ml @ 0.1 MCG/KG/MIN 17. 763 mls/hr IV .[id number] [facility] Rx#:[id number] Propofol 1,000 mg In 233.569 22.337 96.39 Empty Bag 1 bag @ Titrate IV .Q0M [facility] Rx#: [id number] metroNIDAZOLE-NS PMX 500 100 mg In Saline 1 100ml.bag @ 100 mls/hr IVPB Q8HR [facility] Rx#:[id number] Tube Feeding 80 330 120 Other 30 90 30 Output: Gastric Drainage 100 Urine 0 195 15 Hemodialysis 1000 Other: Voiding Method Indwelling Catheter Indwelling Catheter Indwelling Catheter ABP, PAP, CO, CI - Last Documented Arterial Blood Pressure 127/33 - Exam On physical examination, patient appears comfortable in no apparent distress. HEAD: Normocephalic, atraumatic. EYES: No scleral icterus. No conjunctival injection. MOUTH: No lesions, tongue midline, ET tube in place. NECK: Trachea midline, no gross abnormalities. CHEST: Coarse respiratory noises in all lung chacon.vvelo ABDOMEN: Soft, obese, less distended. Bowel sounds are positive. No organomegaly. No guarding or rigidity. EXTREMITIES: Bilateral pedal edema. SKIN: No rashes, no jaundice. NEUROLOGIC: Intubated and sedated. - Labs CBC & Chem 7: 02/04/20 04:35 02/04/20 04:35 Labs: Abnormal Lab Results - Last 24 Hours (Table) 02/03/20 02/03/20 02/04/20 Range/Units 16:48 19:36 00:00 WBC (3.8-10.6) k/uL RBC (4.30-5.90) m/uL Hgb (13.0-17.5) gm/dL Hct (39.0-53.0) % MCHC (31.0-37.0) g/dL RDW (11.5-15.5) % Neutrophils # (1.3-7.7) k/uL Lymphocytes # (1.0-4.8) k/uL Eosinophils # (0-0.7) k/uL ABG pO2 (83-108) mmHg ABG Total CO2 (19-24) mmol/L ABG O2 Saturation (94-97) % BUN (9-20) mg/dL Creatinine (0.66-1.25) mg/dL POC Glucose (mg/dL) 110 H 103 H 103 H (75-99) mg/dL Calcium (8.4-10.2) mg/dL 02/04/20 02/04/20 02/04/20 Range/Units 04:35 04:35 05:28 WBC 13.2 H (3.8-10.6) k/uL RBC 3.40 L (4.30-5.90) m/uL Hgb 9.6 L (13.0-17.5) gm/dL Hct 31.8 L (39.0-53.0) % MCHC 30.3 L (31.0-37.0) g/dL RDW 16.7 H (11.5-15.5) % Neutrophils # 11.1 H (1.3-7.7) k/uL Lymphocytes # 0.6 L (1.0-4.8) k/uL Eosinophils # 0.8 H (0-0.7) k/uL ABG pO2 142 H (83-108) mmHg ABG Total CO2 25 H (19-24) mmol/L ABG O2 Saturation 99.3 H (94-97) % BUN 69 H (9-20) mg/dL Creatinine 4.07 H (0.66-1.25) mg/dL POC Glucose (mg/dL) (75-99) mg/dL Calcium 7.7 L (8.4-10.2) mg/dL 02/04/20 02/04/20 Range/Units 09:33 09:55 WBC (3.8-10.6) k/uL RBC (4.30-5.90) m/uL Hgb (13.0-17.5) gm/dL Hct (39.0-53.0) % MCHC (31.0-37.0) g/dL RDW (11.5-15.5) % Neutrophils # (1.3-7.7) k/uL Lymphocytes # (1.0-4.8) k/uL Eosinophils # (0-0.7) k/uL ABG pO2 (83-108) mmHg ABG Total CO2 (19-24) mmol/L ABG O2 Saturation (94-97) % BUN (9-20) mg/dL Creatinine (0.66-1.25) mg/dL POC Glucose (mg/dL) 68 L 129 H (75-99) mg/dL Calcium (8.4-10.2) mg/dL Assessment and Plan (1) Iron (Fe) deficiency anemia Narrative/Plan: 79-year-old male with multiple medical comorbidities who is seen in the i ntensive care unit. He had been hospitalized for increasing shortness of breath and is being treated for exacerbations of COPD and congestive heart failure. Patient had altered mental status and was sent to the ICU for further investigation. He also had multiple episodes of coffee-ground emesis. Hemoglobin has remained stable at 9.8 today. Computed tomography scan of the abdomen without any acute process noted, however there was some gastric distention with an NG tube in place. No further vomiting since patient has been in the ICU. We'll continue conservative management with PPI therapy and nasogastric tube. Surgical service also following. Iron deficiency anemia anemia is likely multifactorial in the setting of chronic kidney disease and anemia of chronic disease, although patient did have coffee- ground emesis there's been no precipitous fall in his hemoglobin. Current Visit: Yes Status: Acute Code(s): D50.9 - IRON DEFICIENCY ANEMIA, UNSPECIFIED SNOMED Code(s): 17952725 (2) Coffee ground emesis Current Visit: Yes Status: Acute Code(s): K92.0 - HEMATEMESIS SNOMED Code(s): 87260363 Plan: Supportive care Okay to start tube feeds, currently tolerating 20 mL/h Continue to monitor CBC and transfuse as needed Continue Protonix IV 40 mg twice daily Continue treatment of other medical comorbidities Appreciate recommendations from surgical service, rv detailer service in nephrology No plans for endoscopic evaluation at this time given stability of hemoglobin, absence of any further vomiting since transferred Prognosis guarded given multiple medical comorbidities Thank you for allowing us to participate in the care of the patient
[2020-02-04 12:32] LABS: Glucose,Whole Blood 94 mg/dL (75-99)
[2020-02-04] MEDS: POTASSIUM BICARBONATE/CIT AC 20 MEQ TABLET.EFF NG-TUBE SCH ×2 (13:13→15:04)
[2020-02-04] MEDS ORDERED: DEXTROSE 5% IN WATER 100 ML with AMIODARONE 150 MG IV ONE (13:30)
[2020-02-04 13:31] LABS: Phosphorus 4.4 mg/dL (2.5-4.5)
[2020-02-04] MEDS: AMIODARONE 300 MG in DEXTROSE 5% IN WATER 250 ML IV SCH ×4 (13:39→23:06)
--- NOTE | 2020-02-04 14:41 | PN ---
PROGRESS NOTE Mr. Long is an 79-year-old gentleman with past history of chronic congestive heart failure, cardiomyopathy, permanent pacemaker implantation and also COPD who was admitted to the hospital with increasing shortness of breath and evidence of CHF. The patient was started on IV dobutamine and also Lasix drip. Patient developed progressive renal failure. The patient also required intubation and mechanical ventilation. He is also receiving dialysis. The patient had an episode of ventricular fibrillation requiring shocks. Currently urine output is poor. His creatinine is running about 4.5 to 4.6 range. Chest x-ray showed right-sided effusion. Overall his clinical status appears to be relatively poor. The heart rate is in the 50s. Blood pressure 105/50, respirations are 17. His FiO2 is about 60%. His lab values showed white count of 13.2, hemoglobin 9.6. His ABG showed pH of 7.4, PO2 is 142, pCO2 is 37, creatinine is 4.07, seemed to be somewhat improved. The patient is on dialysis. Clinically, patient is intubated and sedated. Heart appears to be normal. Lungs show diminished breath sounds. FINAL IMPRESSION: Multiple medical problems including acute on chronic congestive heart failure, cardiomyopathy, renal failure, and respiratory insufficiency. Continue aggressive measurements. There was consideration for upgrading the pacemaker to Bi-V pacemaker. I do not think the patient will be a candidate at this time. However, we will get a consult from Dr. Cadena. CELESTE / ZENY: [id number] /
--- NOTE | 2020-02-04 15:35 | PN ---
PROGRESS NOTE Patient is seen for followup for chronic kidney disease with acute kidney injury, currently started on dialysis. The patient had his first treatment yesterday. He remains on the vent. Levophed is actually higher, about 20 mcg. FiO2 is at 50%. Hemodynamically, patient is otherwise stable. Blood pressure this morning 127/33, heart rate 50 per minute, he is afebrile. Examination of the heart S1, S2. Examination of the lungs, bilateral breath sounds are heard. Abdomen is soft. Examination of lower extremities shows chronic skin changes, edema 1+ bilaterally. LABS: Show sodium 135, potassium 3.5, chloride 104, BUN 69, serum creatinine 4.0, hemoglobin 9.6 g/dL. ASSESSMENT: 1. Chronic kidney disease, stage V, currently end-stage renal disease started on hemodialysis. We will plan for second treatment tomorrow. 2. Acute hypoxic respiratory failure. 3. Status post cardiac arrest, ventricular fibrillation, being followed by Cardiology. 4. Volume overload. We will try for about a liter of ultrafiltration with dialysis tomorrow as patient is on a higher dose of Levophed today. 5. Cardiomyopathy, ejection fraction 25-30% with moderate aortic stenosis, severe pulmonary hypertension, severe tricuspid regurgitation. 6. Chronic kidney disease mineral bone disorder. 7. Anemia of chronic disease, maintained on Aranesp, status post IV iron. PLAN: Hemodialysis in a.m. However, if the patient is hemodynamically unstable, I will hold dialysis. Overall prognosis is guarded. MMODL / PETRAN: [id number] /
[2020-02-04 15:59] LABS: Glucose,Whole Blood 116 mg/dL (75-99)
--- NOTE | 2020-02-04 16:28 | P.PN ---
Subjective Progress Note Date: 02/04/20 Principal diagnosis: Status post cardiopulmonary arrest Intermittent runs of V. tach Aspiration pneumonia Acute hypoxic respiratory failure Acute on chronic renal failure Upper GI bleed/coffee-ground emesis Gastric distention Acute on chronic heart failure related to systolic heart failure Left foot with inflammation involving toes Bilateral pleural effusion Bilateral basal atelectasis COPD without exacerbation Severe leg uncontrolled diabetes with chronic complication with worsening Chronic atrial fibrillation Coagulopathy with elevated PT/INR, Coumadin is on hold Stage IV chronic renal failure 02/04/2020, patient seen and evaluated examined during the round remains on full ventilator support currently on assist control 16, tidal Volume of 500, 10 of PEEP and 50% oxygen, ABGs are stable, chest x-ray revealed stable, continue show dense right-sided infiltrate, but overall is stable, patient is intermittently regarding runs of V. tach, extra dose of amiodarone has been given, cardiovascular services following, patient is on 20 mics of levo fed, Keofeed is stable, patient has discoloration of fingers and toes, due to vasoconstriction related to the vasopressors, A-line and central line has been working labs reviewed, overall given the irritable nature of myocardium long- term prognosis is poor patient remains a full code was discussed cord issue with the family as per request of hospital staff, patient overall appears to not tolerate the CPR or shock in the event need arise, critical care time 35 minutes 02/03/2020, patient seen and evaluated examined during the rounds sedated with propofol drip about 30 mics patient is on full vent support, hypoxia Significantly worse after V. fib cardiac arrest have been earlier this morning, patient has been intubated, chest x-ray reviewed, patient is on amiodarone drip, status post ACLS protocol, revived, patient underwent a hemodialysis catheter this morning, currently dialysis is undergoing plan is to remove a liter, patient is on levo fed drip, urgently needed central line and A-line because of poor peripheral IV axis and risk of externalization of vasopressors, still have coffee-ground material coming but severity appears to improve gastric secretions light and now patient is on Armaan Keofeed can be started, patient has third spacing and tissue edema with ecchymosis and bruising upper extremity, also has diabetic foot ulcer, patient remains on broad-spectrum antibiotic with Cefepime, we'll add vancomycin with pharmacy to dose, vent setting currently include assist control with PEEP of 10 FiO2 is 60% oxygen saturations were dropping into high 80s FiO2 increase to 70%, critical care time spent 35 minutes 02/02/2020, patient seen eval examined during the rounds labs reviewed medications reviewed, patient remains on dobutamine drip off of dopamine drip he is on Lasix 50 mg an hour, patient due to gastric distention was the having coffee-ground and Mrs. however hemoglobin remained stable white cell count went up to 15,000, patient INR isn't therapeutic range now,, patient has been on proton pump inhibitor, a computed tomography scan of the abdominal and pelvis has been performed which has been reviewed no gastric outlet obstruction has been noted but stomach may be slightly distended due to air, arterial blood gas have been reviewed adequate ventilation and oxygenation is present x-ray however suggestive of the fluid overload with bilateral pleural effusion not much change, renal functions remains on the higher level, patient likely will need hemodialysis with volume removal, care plan discussed with the staff further recommendations pending plan of care as per clinical response of the patient 02/01/2020, patient seen eval examined during the rounds, he remains afebrile, hemodynamic status stable however the blood pressure continue be on the low side oxygen saturation is 98% on 2 L, patient remains on breathing treatments and broad-spectrum antibiotics, do vitamin have been on hold due to tachycardia however remains on Lasix drip, Coumadin remains on hold recommend to check on a daily basis and resume Coumadin once is okay from cardiovascular services 01/31/2020, patient seen eval examined during the rounds has history of oxygen breathing status stable, saturation is 90-93%, patient has been on dobutamine and dopamine and Lasix strip, INR is coming down, BUN/creatinine slightly up This is a 79-year-old male who was seen evaluated examined on third floor, patient came into the hospital with progressive shortness of breath associated with last 1-2 weeks with increased swelling progressively from the 4 extremities to mid abdominal level in addition patient appears to be having diabetic foot infection with edema and redness in the toes as well in the left foot, patient is arousable but tired on 3 L oxygen, patient is to be started on Lasix drip along with dobutamine drip, patient has a history of COPD chronic systolic heart failure chronic atrial fibrillation diabetes along with chronic renal failure stage IV, currently patient is on WelChol dilators in the form of DuoNeb, ID service has been requested for antibiotics, his chest x-ray consistent with congestive heart failure fluid overload and pulmonary edema in addition to his interstitial edema and small bilateral pleural effusion Objective - Vital Signs Vital signs: Vital Signs Temp 98.4 F 02/04/20 08:00 Pulse 51 L 02/04/20 11:30 Resp 17 02/04/20 11:00 BP 105/50 02/04/20 11:00 Pulse Ox 98 02/04/20 11:00 Intake & Output 02/03/20 02/04/20 02/04/20 18:59 06:59 18:59 Intake Total 1652.140 207.926 1686.457 Output Total 1100 195 15 Balance 552.140 513.086 3722.457 Weight 91.8 kg 95.7 kg Intake: IV 505 255 630 .9 @ 20 20 Dextrose 5% in Water 100 100 ml @ 618 mls/hr IV .Q10M [facility] with Amiodarone 150 mg Rx#:[id number] Furosemide 100 mg In 165 15 Sodium Chloride 0.9% 90 ml @ 15 MG/HR 15 mls/hr IV .Q6H40M [facility] Rx#: [id number] Sodium Chloride 0.9% 1, 220 240 180 000 ml @ 20 mls/hr IV . Q24H [facility] Rx#:[id number] Sodium Ferric Gluconat- 100 Sucrose 125 mg In Sodium Chloride 0.9% 100 ml @ 100 mls/hr IVPB DAILY [facility] Rx#:[id number] Vancomycin 1,500 mg In 250 Sodium Chloride 0.9% 250 ml @ 125 mls/hr IVPB ONCE [facility] Rx#:[id number] metroNIDAZOLE-NS PMX 500 100 mg In Saline 1 100ml.bag @ 100 mls/hr IVPB Q8H [facility] Rx#:[id number] Intake, IV Titration 1037.140 321.669 457.457 Amount Amiodarone 300 mg In 250.000 Dextrose 5% in Water 250 ml @ 0.5 MG/MIN 25 mls/hr IV .Q10H [facility] Rx#: [id number] Cefepime 1 gm In Sodium 100 Chloride 0.9% 50 ml @ 100 mls/hr IVPB Q12HR [facility] Rx #:[id number] Furosemide 100 mg In 187.5 100 Sodium Chloride 0.9% 90 ml @ 15 MG/HR 15 mls/hr IV .Q6H40M [facility] Rx#: [id number] Norepinephrine 4 mg In 366.071 25.023 Sodium Chloride 0.9% 250 ml @ 0.05 MCG/KG/MIN 17. 621 mls/hr IV .V17H31M [facility] Rx#:[id number] Norepinephrine 8 mg In 74.309 167.982 Sodium Chloride 0.9% 250 ml @ 0.1 MCG/KG/MIN 17. 763 mls/hr IV .[id number] [facility] Rx#:[id number] Propofol 1,000 mg In 233.569 22.337 189.475 Empty Bag 1 bag @ Titrate IV .Q0M [facility] Rx#: [id number] metroNIDAZOLE-NS PMX 500 100 mg In Saline 1 100ml.bag @ 100 mls/hr IVPB Q8HR [facility] Rx#:[id number] Tube Feeding 80 330 240 Other 30 90 60 Output: Gastric Drainage 100 Urine 0 195 15 Hemodialysis 1000 Other: Voiding Method Indwelling Catheter Indwelling Catheter Indwelling Catheter ABP, PAP, CO, CI - Last Documented Arterial Blood Pressure 127/33 - Exam Intubated sedated on full respiratory support diffuse ecchymosis edema and third spacing - Constitutional General appearance: disheveled, mild distress, morbidly obese - Neck Neck: Supple Carotids: bilateral: upstroke normal - Respiratory Respiratory: bilateral: diminished, dullness, rales bronchial breath sounds especially on the right side - Cardiovascular Rhythm: regular Heart sounds: normal: S1, S2 - Gastrointestinal General gastrointestinal: normal bowel sounds, soft - Musculoskeletal Musculoskeletal: generalized weakness, strength equal bilaterally - Psychiatric Psychiatric: Sedated on full ventilator support Edema involving the lower extremity up to the abdominal level, in addition left diabetic foot involvement of the toes - Labs CBC & Chem 7: 02/04/20 04:35 02/04/20 04:35 Labs: Abnormal Lab Results - Last 24 Hours (Table) 02/03/20 02/03/20 02/04/20 Range/Units 16:48 19:36 00:00 WBC (3.8-10.6) k/uL RBC (4.30-5.90) m/uL Hgb (13.0-17.5) gm/dL Hct (39.0-53.0) % MCHC (31.0-37.0) g/dL RDW (11.5-15.5) % Neutrophils # (1.3-7.7) k/uL Lymphocytes # (1.0-4.8) k/uL Eosinophils # (0-0.7) k/uL ABG pO2 (83-108) mmHg ABG Total CO2 (19-24) mmol/L ABG O2 Saturation (94-97) % BUN (9-20) mg/dL Creatinine (0.66-1.25) mg/dL POC Glucose (mg/dL) 110 H 103 H 103 H (75-99) mg/dL Calcium (8.4-10.2) mg/dL 02/04/20 02/04/20 02/04/20 Range/Units 04:35 04:35 05:28 WBC 13.2 H (3.8-10.6) k/uL RBC 3.40 L (4.30-5.90) m/uL Hgb 9.6 L (13.0-17.5) gm/dL Hct 31.8 L (39.0-53.0) % MCHC 30.3 L (31.0-37.0) g/dL RDW 16.7 H (11.5-15.5) % Neutrophils # 11.1 H (1.3-7.7) k/uL Lymphocytes # 0.6 L (1.0-4.8) k/uL Eosinophils # 0.8 H (0-0.7) k/uL ABG pO2 142 H (83-108) mmHg ABG Total CO2 25 H (19-24) mmol/L ABG O2 Saturation 99.3 H (94-97) % BUN 69 H (9-20) mg/dL Creatinine 4.07 H (0.66-1.25) mg/dL POC Glucose (mg/dL) (75-99) mg/dL Calcium 7.7 L (8.4-10.2) mg/dL 02/04/20 02/04/20 02/04/20 Range/Units 09:33 09:55 15:57 WBC (3.8-10.6) k/uL RBC (4.30-5.90) m/uL Hgb (13.0-17.5) gm/dL Hct (39.0-53.0) % MCHC (31.0-37.0) g/dL RDW (11.5-15.5) % Neutrophils # (1.3-7.7) k/uL Lymphocytes # (1.0-4.8) k/uL Eosinophils # (0-0.7) k/uL ABG pO2 (83-108) mmHg ABG Total CO2 (19-24) mmol/L ABG O2 Saturation (94-97) % BUN (9-20) mg/dL Creatinine (0.66-1.25) mg/dL POC Glucose (mg/dL) 68 L 129 H 116 H (75-99) mg/dL Calcium (8.4-10.2) mg/dL Microbiology - Last 24 Hours (Table) 02/03/20 19:50 Sputum Culture - Preliminary Sputum Assessment and Plan Assessment: Status post cardiopulmonary arrest Intermittent runs of V. tach Aspiration pneumonia Status post V. fib cardiac arrest Acute renal failure mostly appears to be cardiorenal Upper GI coffee-ground emesis likely due to stress ulceration patient has been started on Protonix Acute on chronic hypoxic respiratory failure Acute on chronic heart failure related to systolic heart failure Left foot with inflammation involving toes Bilateral pleural effusion Bilateral basal atelectasis COPD without exacerbation Severe leg uncontrolled diabetes with chronic complication with worsening Chronic atrial fibrillation Coagulopathy with elevated PT/INR, Coumadin is on hold Stage IV chronic renal failure baseline Plan: Continue aspirin and Plavix hemodialysis Status post central line and A-line Continue to monitor patient closely in ICU Replace electrolytes Continue amiodarone Continue ventilator adjustment as needed and tolerated Tube feed Hypothermia protocol not available in this institution Continue bronchodilators Labs have been ordered for tomorrow Continue oxygen 2 L nasal cannula oxygen saturation is stable No need to start steroids now Broad-spectrum antibiotics as per infectious disease recommendation Agree with inotropes and dialysis as planned As far as pleural effusion is concerned will monitor and observe no plans for thoracentesis Monitor renal functions and electrolytes closely Continue to hold Coumadin for now monitor observe PT/INR closely Further recommendations pending plan of care as per clinical response of patient, long-term prognosis poor Time with Patient: Greater than 30
[2020-02-04] MEDS ORDERED: LIDOCAINE 2% SYG (PF) 100 MG/5 ML IV ONE (16:53)
[2020-02-04] MEDS: LIDOCAINE-D5W PMX 2G/250ML 2,000 MG in DEXTROSE/WATER 1 250ML.BAG IV SCH (16:59)
[2020-02-04 19:55] LABS: Glucose,Whole Blood 100 mg/dL (75-99)
[2020-02-04] MEDS: TAMSULOSIN 0.4 MG CAP.ER.24H PO SCH (21:17)
[2020-02-04] MEDS: MONTELUKAST 10 MG TAB PO SCH (21:18)
--- NOTE | 2020-02-04 23:41 | PN ---
PROGRESS NOTE DATE OF SERVICE: 02/04/2020 REASON FOR FOLLOWUP: Sepsis and aspiration pneumonia. INTERVAL HISTORY: The patient is currently afebrile. The patient remains to be intubated on the vent. Seemed to have problem with arrhythmias. The patient has been started on amiodarone. The patient still requiring pressor support. FiO2 is currently 50%. No diarrhea has been reported. PHYSICAL EXAMINATION: Blood pressure is 132/34 with a pulse of 49, temperature is 98.4. He is 100% on 50% FiO2. General description is an elderly male intubated on the vent. RESPIRATORY SYSTEM: Unlabored breathing, clear to auscultation anteriorly. HEART: S1, S2. Regular. ABDOMEN: Soft, less distended, no guarding or rigidity. LOWER EXTREMITIES: Some swelling, no redness. LABS: Hemoglobin 9.6, white count 13.2, BUN of 69, creatinine 4.07. Sputum cultures so far pending. DIAGNOSTIC IMPRESSION AND PLAN: Patient with sepsis with concern for aspiration pneumonia. This patient did have hematemesis and right-sided infiltrate, covered with cefepime and Flagyl to continue. Will monitor his clinical course closely. MMODL / IJN: [id number] /
[2020-02-05 00:03] LABS: Glucose,Whole Blood 152 mg/dL (75-99)
[2020-02-05] MEDS: INSULIN ASPART (NovoLOG) 100 UNIT/ML VIAL SQ SCH ×7 (00:03→23:58)
[2020-02-05] MEDS: PROPOFOL 1,000 MG in EMPTY BAG 1 BAG IV SCH ×3 (01:20→13:06)
--- NOTE | 2020-02-05 01:54 | PN ---
PROGRESS NOTE Status post cardiopulmonary arrest. He has been intubated, intermittent runs of ventricular tachycardia, aspiration pneumonia, hypoxemic respiratory failure, acute on chronic renal failure, upper GI bleed, coffee-ground emesis, gastric distention, chronic heart failure, systolic heart failure, osteoarthritis, cervical degenerative disc disease, gout, osteoarthritis, COPD, uncontrolled diabetes mellitus, chronic atrial fibrillation, elevated coagulopathy. The patient vent settings were reviewed. Chest x-ray is stable, right-sided infiltrate stable. He was given amiodarone for runs of ventricular tachycardia. He is on 20 mcg of Levophed. He has systolic CHF and moderate aortic stenosis. Prognosis is guarded. PHYSICAL EXAMINATION: Temperature 98.4, pulse 51, respiratory rate 17, blood pressure 105/50, O2 saturation 98%, Medications reviewed. Labs reviewed. MUSCULOSKELETAL: He can move all 4 extremities CARDIOVASCULAR: S1, S2. LUNGS: Show rales at the bases. GI: Soft. HEMATOLOGY: Negative Homans. ASSESSMENT: As above. PLAN: To continue with broad-spectrum antibiotics. Continue aspirin and Plavix. Hemodialysis for second day coming up. He has got a central line, art line. Replace electrolytes. Continue amiodarone. Continue ventilator adjustment. Tube feeds. Continue bronchodilators. Hypothermia will be treated if necessary with blankets. Continue with Levophed and dialysis. Monitor renal functions. Prognosis guarded. Continue amiodarone for arrhythmia, Coumadin watch PT, INR. Please see further orders. ICU TIME: 30 minutes. MMODL / IJN: [id number] /
[2020-02-05] MEDS: NOREPINEPHRINE 32 MG in SODIUM CHLORIDE 0.9% 218 ML IV SCH ×2 (03:22→21:28)
[2020-02-05 04:21] LABS: Glucose,Whole Blood 173 mg/dL (75-99)
[2020-02-05 04:56] LABS: Anisocytosis Slight; HCT 36.3 % (39.0-53.0); HGB 10.8 gm/dL (13.0-17.5); Hypochromasia Marked; MCH 28.1 pg (25.0-35.0); MCHC 29.8 g/dL (31.0-37.0); MCV 94.3 fL (80.0-100.0); Mean Platelet Volume 8.8; Platelet Count 256 k/uL (150-450); RBC 3.85 m/uL (4.30-5.90); RDW 16.9 % (11.5-15.5); WBC 21.6 k/uL (3.8-10.6)
[2020-02-05 05:36] LABS: ABG Base Excess -6.1 mmol/L; ABG HCO3 20 mmol/L (21-25); ABG Oxygen Saturation 98.5 % (94-97); ABG PCO2 36 mmHg (35-45); ABG PH 7.34 (7.35-7.45); ABG PO2 107 mmHg (83-108); ABG TCO2 21 mmol/L (19-24)
[2020-02-05 05:49] LABS: Band Neutrophils % 8 %; Eosinophils # (M) 0.43 k/uL (0-0.7); Lymphocytes # (M) 0.65 k/uL (1.0-4.8); Monocytes # (M) 1.94 k/uL (0-1.0); Neutrophils % (M) 78 %; Nucleated Red Blood Cells 0 /100 WBC (0-0); Total Cells Counted 100
[2020-02-05 05:50] LABS: Anisocytosis (M) Present; Ovalocytes Present; Poikilocytosis (M) Present; Polychromasia Present
[2020-02-05 06:00] LABS: Albumin 2.4 g/dL (3.5-5.0); Calcium 7.3 mg/dL (8.4-10.2); Potassium 4.4 mmol/L (3.5-5.1); Total Bilirubin 0.7 mg/dL (0.2-1.3); Total Protein 5.1 g/dL (6.3-8.2)
[2020-02-05 06:05] LABS: Vancomycin,Random 18.1 ug/mL
[2020-02-05] MEDS: metroNIDAZOLE-NS PMX 500 MG in SALINE 1 100ML.BAG IVPB SCH ×3 (06:06→20:24)
[2020-02-05 07:48] LABS: Glucose,Whole Blood 166 mg/dL (75-99)
--- NOTE | 2020-02-05 07:49 | XR ---
EXAMINATION TYPE: XR chest 1V DATE OF EXAM: 02/05/2020 CLINICAL HISTORY: Difficulty breathing progress study. TECHNIQUE: Single AP portable upright view of the chest is obtained. COMPARISON: Chest x-ray from one day earlier and older studies. FINDINGS: Stable endotracheal tube, orogastric tube, and right internal jugular central venous [place] ter. Persistent cardiomegaly with dual lead pacemaker. Persistent central vascular congestion and bib asilar opacities. Upper lungs remain clear without pneumothorax. Osseous structures are intact. IMPRESSION: Overall stable findings, suspect CHF exacerbation as there is cardiomegaly with central vascular congestion and small right greater than left pleural effusions with associated bibasilar at electasis and/or infiltrate are all redemonstrated.
[2020-02-05] MEDS: IPRATROPIUM-ALBUTEROL 3 ML NEB INHALATION SCH ×4 (08:09→19:43)
[2020-02-05 08:52] LABS: INR 3.8 (<1.2); Prothrombin Time 36.9 sec (9.0-12.0)
[2020-02-05] MEDS: CARVEDILOL 3.125 MG TAB PO SCH ×2 (09:32→20:30)
[2020-02-05] MEDS: ISOSORBIDE MONONITRATE ER 15 MG TAB PO SCH (09:32)
[2020-02-05] MEDS: CARBIDOPA-LEVODOPA 10-100 MG 1 EACH TAB PO SCH ×2 (09:40→20:24)
[2020-02-05] MEDS: SENNOSIDES 8.6 MG TAB PO SCH ×2 (09:40→20:24)
[2020-02-05] MEDS: CHLORHEXIDINE GLUCONATE 15 ML CUP MUCOUS MEM SCH ×2 (09:41→20:24)
[2020-02-05] MEDS: METOLAZONE 5 MG TAB PO SCH ×2 (09:41→20:24)
[2020-02-05] MEDS: PANTOPRAZOLE 40 MG/10 ML VIAL IVP SCH ×2 (09:41→20:34)
[2020-02-05] MEDS: CALCITRIOL 0.25 MCG CAP PO SCH (09:41)
[2020-02-05] MEDS: CEFEPIME 1 GM in SODIUM CHLORIDE 0.9% 50 ML IVPB SCH (09:43)
[2020-02-05] MEDS ORDERED: VANCOMYCIN 1,500 MG in SODIUM CHLORIDE 0.9% 250 ML IVPB ONE (10:00)
[2020-02-05] MEDS: SODIUM CHLORIDE 0.9% 1,000 ML IV SCH (10:53)
[2020-02-05 12:05] LABS: Glucose,Whole Blood 211 mg/dL (75-99)
--- NOTE | 2020-02-05 13:11 | PN ---
PROGRESS NOTE Mr. Ethan gill is an 79-year-old gentleman who is admitted to hospital with chronic congestive heart failure who had an acute exacerbation of chronic systolic heart failure, has cardiomyopathy, permanent pacemaker, and COPD. He is currently on an IV dobutamine and Lasix drip; developed runs of ventricular tachycardia and is currently on IV amiodarone and IV . I am going to switch the amiodarone to oral amiodarone. Patient was on Coumadin, Coumadin is on hold. INR is still around 3.6. Will follow it meticulously given the history amiodarone that the patient is on. Patient is currently intubated on vent. On exam, heart rate is 57 beats per minute. Blood pressure is 133/58, respiratory rate is 16, O2 saturation is 95% on 50% FiO2. The patient is intubated on vent. Chest exam reveals diminished air entry at the bases. Heart exam reveals first and second heart sounds. No gallop. Exam of extremities reveals mild edema. LABS: Show a hemoglobin of 10.8, platelet count is 256, potassium is 4.4, BUN is 77, creatinine is 4.86. ASSESSMENT: 1. Acute exacerbation of chronic systolic heart failure. 2. Chronic renal failure. 3. Ventricular tachycardia. PLAN: The patient's prognosis is guarded. Will continue him on his current medications. The patient was to undergo an upgrade of his pacemaker to a BiV pacemaker, but he is too unstable to do it at this time. MMODL / IJN: [id number] /
--- NOTE | 2020-02-05 14:31 | PN ---
PROGRESS NOTE DATE OF SERVICE: 02/05/2020 REASON FOR FOLLOWUP: Aspiration pneumonia. INTERVAL HISTORY: The patient is currently afebrile. The patient is hemodynamically stable. FiO2 is currently at 40%. No other significant change has been reported. PHYSICAL EXAMINATION: Blood pressure 100/64 with a pulse of 49, temperature is 98.2, he is 98% on 40% FiO2. General description is elderly male, intubated on the vent. RESPIRATORY SYSTEM: Unlabored breathing, clear to auscultation anteriorly. HEART: S1, S2. Regular rate and rhythm. ABDOMEN: Soft, slightly distended. Abdomen soft. LABS: INR is 3.8, white count 21.6. Sputum culture pending. DIAGNOSTIC IMPRESSION AND PLAN: Patient with acute respiratory failure, likely multifactorial. This patient did have a component of pneumonia, possible gram-negative covered with cefepime and Flagyl to continue. Will wait for the culture to finalize. Antibiotic further if needed. Monitor his white count closely. Continue supportive care. MMODL / IJN: [id number] /
--- NOTE | 2020-02-05 15:27 | CDI ---
Documentation Clarification Form Date: 02/05/2020 03:10:13 PM From: Mirta AyalaADOLPH olivares, CCDS Admit Date: 01/29/2020 04:48:00 PM Patient Name: Sunil Long Visit Number: [id number] Discharge Date: ATTENTION: The Clinical Documentation Specialists (CDI) and [facility] Coding Staff appreciate your assistance in clarifying documentation. Please respond to the clarification below the line at the bottom and electronically sign. The CDI & [facility] Coding staff will review the response and follow-up if needed. Please note: Queries are made part of the Legal Health Record. If you have any questions, please contact the author of this message via ITS. Dr. Adán Bynum: The patient presented to the ED on 01/28 with SOB. Diagnosed with Acute on Chronic Systolic CHF, Acute Renal Failure with ATN, Cellulitis of the right lower extremity & Acute metabolic encephalopathy. On 02/02 a Code Blue was called, patient went into cardiac arrest with V fib, CPR administered & resuscitated, intubated and remains on vent in ICU. Per the Pulmonary/Critical Care Progress note 02/02: the patient is in Severe Sepsis requiring vasopressors. Per the Nephrology Progress note on 02/02 the patient was hypotensive. History/Risk Factors: Chronic systolic CHF, COPD, Permanent atrial fibrillation, DM II, Hypertension, CKDIV, Non-ischemic cardiomyopathy. Clinical Indicators: Presented as above. 02/02 VS: T 98.6, P 49, R 16, BP 96/42*, PO 78 on vent. 02/02 LAB: WBC 16.1^, Hgb 9.8*, Neut 13.7^, BUN 86^, Cr 4.60^, Glucose 131^, Lactic Acid: 2.8-2.4^^. 02/02 Blood gas: ABD pO2 153^, O2 Sat 99.4^ Treatment 02/02: IV Amiodarone, Insulin sq, IV Vancomycin, I Noerphinephrine Bitartrate, IV Flagyl, K Bicarb: NGT. In your professional opinion, please clarify if these findings signify one of the following conditions, whether the condition is POA, and cause, if known: Severe Sepsis with Septic Shock Severe Sepsis without Septic Shock Other, please specify Unable to determine Link or clarify if there is associated (due to/with): Organ failure (Last Revision: December 2017) MTDD
[2020-02-05 16:59] LABS: Glucose,Whole Blood 205 mg/dL (75-99)
[2020-02-05] MEDS: LIDOCAINE-D5W PMX 2G/250ML 2,000 MG in DEXTROSE/WATER 1 250ML.BAG IV SCH (17:02)
--- NOTE | 2020-02-05 17:23 | P.PN ---
Subjective Progress Note Date: 02/05/20 Principal diagnosis: Iron deficiency anemia, coffee-ground emesis Patient is seen in the ICU. The patient is still intubated and sedated. No bowel movements reported or signs or symptoms of GI bleeding. Tolerating his tube feeds. Objective - Vital Signs Vital signs: Vital Signs Temp 98.9 F 02/05/20 04:00 Pulse 51 L 02/05/20 08:18 Resp 17 02/05/20 07:00 BP 119/48 02/05/20 05:15 Pulse Ox 99 02/05/20 07:00 Intake & Output 02/04/20 02/05/20 02/05/20 18:59 06:59 18:59 Intake Total 4892.243 8314.274 50 Output Total 15 65 0 Balance 9779.842 1878.274 50 Intake: IV 690 440 20 Dextrose 5% in Water 100 100 ml @ 618 mls/hr IV .Q10M ONE with Amiodarone 150 mg Rx#:[id number] Sodium Chloride 0.9% 1, 240 240 20 000 ml @ 20 mls/hr IV . Q24H ENRIQUE Rx#:[id number] Vancomycin 1,500 mg In 250 Sodium Chloride 0.9% 250 ml @ 125 mls/hr IVPB ONCE ONE Rx#:[id number] metroNIDAZOLE-NS PMX 500 100 200 mg In Saline 1 100ml.bag @ 100 mls/hr IVPB Q8H ENRIQUE Rx#:[id number] Intake, IV Titration 815.161 685.274 Amount Amiodarone 300 mg In 236.25 Dextrose 5% in Water 250 ml @ 0.5 MG/MIN 25 mls/hr IV .Q10H ENRIQUE Rx#: [id number] Furosemide 100 mg In 100 Sodium Chloride 0.9% 90 ml @ 15 MG/HR 15 mls/hr IV .Q6H40M ENRIQUE Rx#: [id number] Norepinephrine 32 mg In 16.239 Sodium Chloride 0.9% 218 ml @ 0.3 MCG/KG/MIN 13. 458 mls/hr IV .[id number] ENRIQUE Rx#:[id number] Norepinephrine 8 mg In 425.686 256.224 Sodium Chloride 0.9% 250 ml @ 0.1 MCG/KG/MIN 17. 763 mls/hr IV .[id number] ENRIQUE Rx#:[id number] Propofol 1,000 mg In 289.475 176.561 Empty Bag 1 bag @ Titrate IV .Q0M ENRIQUE Rx#: [id number] Tube Feeding 330 360 30 Other 90 60 Output: Urine 15 65 0 Other: Voiding Method Indwelling Catheter Indwelling Catheter ABP, PAP, CO, CI - Last Documented Arterial Blood Pressure 125/41 - Exam On physical examination, patient appears comfortable in no apparent distress. HEAD: Normocephalic, atraumatic. EYES: No scleral icterus. No conjunctival injection. MOUTH: No lesions, tongue midline, ET tube in place. NECK: Trachea midline, no gross abnormalities. CHEST: Coarse respiratory noises in all lung [place]. ABDOMEN: Soft, obese, less distended. Bowel sounds are positive. No organomegaly. No guarding or rigidity. EXTREMITIES: Bilateral pedal edema. SKIN: No rashes, no jaundice. NEUROLOGIC: Intubated and sedated. - Labs CBC & Chem 7: 02/05/20 04:00 02/05/20 04:00 Labs: Abnormal Lab Results - Last 24 Hours (Table) 02/04/20 02/04/20 02/04/20 Range/Units 09:55 15:57 19:54 WBC (3.8-10.6) k/uL RBC (4.30-5.90) m/uL Hgb (13.0-17.5) gm/dL Hct (39.0-53.0) % MCHC (31.0-37.0) g/dL RDW (11.5-15.5) % Neutrophils # (Manual) (1.3-7.7) k/uL Lymphocytes # (Manual) (1.0-4.8) k/uL Monocytes # (Manual) (0-1.0) k/uL PT (9.0-12.0) sec INR (<1.2) ABG pH (7.35-7.45) ABG HCO3 (21-25) mmol/L ABG O2 Saturation (94-97) % Sodium (137-145) mmol/L Carbon Dioxide (22-30) mmol/L BUN (9-20) mg/dL Creatinine (0.66-1.25) mg/dL Glucose (74-99) mg/dL POC Glucose (mg/dL) 129 H 116 H 100 H (75-99) mg/dL Calcium (8.4-10.2) mg/dL AST (17-59) U/L Total Protein (6.3-8.2) g/dL Albumin (3.5-5.0) g/dL 02/05/20 02/05/20 02/05/20 Range/Units 00:01 04:00 04:00 WBC 21.6 H (3.8-10.6) k/uL RBC 3.85 L (4.30-5.90) m/uL Hgb 10.8 L (13.0-17.5) gm/dL Hct 36.3 L (39.0-53.0) % MCHC 29.8 L (31.0-37.0) g/dL RDW 16.9 H (11.5-15.5) % Neutrophils # (Manual) 18.50 H (1.3-7.7) k/uL Lymphocytes # (Manual) 0.65 L (1.0-4.8) k/uL Monocytes # (Manual) 1.94 H (0-1.0) k/uL PT (9.0-12.0) sec INR (<1.2) ABG pH (7.35-7.45) ABG HCO3 (21-25) mmol/L ABG O2 Saturation (94-97) % Sodium 135 L (137-145) mmol/L Carbon Dioxide 19 L (22-30) mmol/L BUN 77 H (9-20) mg/dL Creatinine 4.86 H (0.66-1.25) mg/dL Glucose 181 H (74-99) mg/dL POC Glucose (mg/dL) 152 H (75-99) mg/dL Calcium 7.3 L (8.4-10.2) mg/dL AST 132 H (17-59) U/L Total Protein 5.1 L (6.3-8.2) g/dL Albumin 2.4 L (3.5-5.0) g/dL 02/05/20 02/05/20 02/05/20 Range/Units 04:06 05:31 07:36 WBC (3.8-10.6) k/uL RBC (4.30-5.90) m/uL Hgb (13.0-17.5) gm/dL Hct (39.0-53.0) % MCHC (31.0-37.0) g/dL RDW (11.5-15.5) % Neutrophils # (Manual) (1.3-7.7) k/uL Lymphocytes # (Manual) (1.0-4.8) k/uL Monocytes # (Manual) (0-1.0) k/uL PT (9.0-12.0) sec INR (<1.2) ABG pH 7.34 L (7.35-7.45) ABG HCO3 20 L (21-25) mmol/L ABG O2 Saturation 98.5 H (94-97) % Sodium (137-145) mmol/L Carbon Dioxide (22-30) mmol/L BUN (9-20) mg/dL Creatinine (0.66-1.25) mg/dL Glucose (74-99) mg/dL POC Glucose (mg/dL) 173 H 166 H (75-99) mg/dL Calcium (8.4-10.2) mg/dL AST (17-59) U/L Total Protein (6.3-8.2) g/dL Albumin (3.5-5.0) g/dL 02/05/20 Range/Units 08:09 WBC (3.8-10.6) k/uL RBC (4.30-5.90) m/uL Hgb (13.0-17.5) gm/dL Hct (39.0-53.0) % MCHC (31.0-37.0) g/dL RDW (11.5-15.5) % Neutrophils # (Manual) (1.3-7.7) k/uL Lymphocytes # (Manual) (1.0-4.8) k/uL Monocytes # (Manual) (0-1.0) k/uL PT 36.9 H (9.0-12.0) sec INR 3.8 H (<1.2) ABG pH (7.35-7.45) ABG HCO3 (21-25) mmol/L ABG O2 Saturation (94-97) % Sodium (137-145) mmol/L Carbon Dioxide (22-30) mmol/L BUN (9-20) mg/dL Creatinine (0.66-1.25) mg/dL Glucose (74-99) mg/dL POC Glucose (mg/dL) (75-99) mg/dL Calcium (8.4-10.2) mg/dL AST (17-59) U/L Total Protein (6.3-8.2) g/dL Albumin (3.5-5.0) g/dL Microbiology - Last 24 Hours (Table) 02/03/20 19:50 Gram Stain - Preliminary Sputum Sputum Culture - Preliminary Assessment and Plan (1) Iron (Fe) deficiency anemia Narrative/Plan: 79-year-old male with multiple medical comorbidities who is seen in the intensive care unit. He had been hospitalized for increasing shortness of breath and is being treated for exacerbations of COPD and congestive heart failure. Patient had altered mental status and was sent to the ICU for further investigation. He also had multiple episodes of coffee-ground emesis. Hemoglobin has remained stable at 10.8 today. Computed tomography scan of the abdomen without any acute process noted, however there was some gastric distention with an NG tube in place. No further vomiting since patient has been in the ICU. We'll continue conservative management with PPI therapy and nasogastric tube. Surgical service also following. Iron deficiency anemia anemia is likely multifactorial in the setting of chronic kidney disease and anemia of chronic disease, although patient did have coffee- ground emesis there's been no precipitous fall in his hemoglobin. 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
--- NOTE | 2020-02-05 17:42 | P.PN ---
Subjective Progress Note Date: 02/05/20 Principal diagnosis: Status post cardiopulmonary arrest Intermittent runs of V. tach Aspiration pneumonia Acute hypoxic respiratory failure Acute on chronic renal failure Upper GI bleed/coffee-ground emesis Gastric distention Acute on chronic heart failure related to systolic heart failure Left foot with inflammation involving toes Bilateral pleural effusion Bilateral basal atelectasis COPD without exacerbation Severe leg uncontrolled diabetes with chronic complication with worsening Chronic atrial fibrillation Coagulopathy with elevated PT/INR, Coumadin is on hold Stage IV chronic renal failure 02/05/2020, patient seen eval reexamined during her medication was resumed and continue breathing over the ventilator, current setting include assist control rate of 16 breathing about 20-24, tidal volume is 500, PEEP is 10, FiO2 is down to 40% now, heart rhythm remains in flutter with paced rhythm bradycardic about 45-50, patient remained on lidocaine drip, the amiodarone has been changed to oral, for hemodynamic support patient remains on 18 mics of levo fed, however it's down from 30 mics from this morning, less cyanosis in hand and toes noted, cultures have been negative, patient is tolerating tube feed well, chest x-ray shows stability, patient remains on broad-spectrum antibiotics for the diabetic foot ulcer and as well as a right-sided aspiration pneumonia on cephapirin Vanco and Flagyl, patient could not tolerate dialysis today due to fluctuation in blood pressure and rhythm, will reattempt tomorrow patient is definitely not ready for weaning critical care time 35 minutes 02/04/2020, patient seen and evaluated examined during the round remains on full ventilator support currently on assist control 16, tidal Volume of 500, 10 of PE EP and 50% oxygen, ABGs are stable, chest x-ray revealed stable, continue show dense right-sided infiltrate, but overall is stable, patient is intermittently regarding runs of V. tach, extra dose of amiodarone has been given, cardiovascular services following, patient is on 20 mics of levo fed, Keofeed is stable, patient has discoloration of fingers and toes, due to vasoconstriction related to the vasopressors, A-line and central line has been working labs reviewed, overall given the irritable nature of myocardium long-term prognosis is poor patient remains a full code was discussed cord issue with the family as per request of hospital staff, patient overall appears to not tolerate the CPR o r shock in the event need arise, critical care time 35 minutes 02/03/2020, patient seen and evaluated examined during the rounds sedated with propofol drip about 30 mics patient is on full vent support, hypoxia Significantly worse after V. fib cardiac arrest have been earlier this morning, patient has been intubated, chest x-ray reviewed, patient is on amiodarone drip, status post ACLS protocol, revived, patient underwent a hemodialysis catheter this morning, currently dialysis is undergoing plan is to remove a liter, patient is on levo fed drip, urgently needed central line and A-line because of poor peripheral IV axis and risk of externalization of vasopressors, still have coffee-ground material coming but severity appears to improve gastric secretions light and now patient is on Armaan Keofeed can be started, patient has third spacing and tissue edema with ecchymosis and bruising upper extremity, also has diabetic foot ulcer, patient remains on broad-spectrum antibiotic with Cefepime, we'll add vancomycin with pharmacy to dose, vent setting currently include assist control with PEEP of 10 FiO2 is 60% oxygen saturations were dropping into high 80s FiO2 increase to 70%, critical care time spent 35 minutes 02/02/2020, patient seen eval examined during the rounds labs reviewed medications reviewed, patient remains on dobutamine drip off of dopamine drip he is on Lasix 50 mg an hour, patient due to gastric distention was the having coffee-ground and Mrs. however hemoglobin remained stable white cell count went up to 15,000, patient INR isn't therapeutic range now,, patient has been on proton pump inhibitor, a computed tomography scan of the abdominal and pelvis has been performed which has been reviewed no gastric outlet obstruction has been noted but stomach may be slightly distended due to air, arterial blood gas have been reviewed adequate ventilation and oxygenation is present x-ray however suggestive of the fluid overload with bilateral pleural effusion not much change, renal functions remains on the higher level, patient likely will need hemodialysis with volume removal, care plan discussed with the staff further recommendations pending plan of care as per clinical response of the patient 02/01/2020, patient seen eval examined during the rounds, he remains afebrile, hemodynamic status stable however the blood pressure continue be on the low side oxygen saturation is 98% on 2 L, patient remains on breathing treatments and broad-spectrum antibiotics, do vitamin have been on hold due to tachycardia however remains on Lasix drip, Coumadin remains on hold recommend to check on a daily basis and resume Coumadin once is okay from cardiovascular services 01/31/2020, patient seen eval examined during the rounds has history of oxygen breathing status stable, saturation is 90-93%, patient has been on dobutamine and dopamine and Lasix strip, INR is coming down, BUN/creatinine slightly up This is a 79-year-old male who was seen evaluated examined on third floor, patient came into the hospital with progressive shortness of breath associated with last 1-2 weeks with increased swelling progressively from the 4 extremities to mid abdominal level in addition patient appears to be having diabetic foot infection with edema and redness in the toes as well in the left foot, patient is arousable but tired on 3 L oxygen, patient is to be started on Lasix drip along with dobutamine drip, patient has a history of COPD chronic systolic heart failure chronic atrial fibrillation diabetes along with chronic renal failure stage IV, currently patient is on WelChol dilators in the form of DuoNeb, ID service has been requested for antibiotics, his chest x-ray consistent with congestive heart failure fluid overload and pulmonary edema in addition to his i nterstitial edema and small bilateral pleural effusion Objective - Vital Signs Vital signs: Vital Signs Temp 98.4 F 02/05/20 16:00 Pulse 49 L 02/05/20 17:15 Resp 22 02/05/20 17:15 BP 134/56 02/05/20 16:45 Pulse Ox 100 02/05/20 17:15 Intake & Output 02/04/20 02/05/20 02/05/20 18:59 06:59 18:59 Intake Total 3926.949 7250.274 1318.676 Output Total 15 65 35 Balance 8689.291 9218.274 1283.676 Weight 95.7 kg Intake: IV 690 440 470 Dextrose 5% in Water 100 100 ml @ 618 mls/hr IV .Q10M ONE with Amiodarone 150 mg Rx#:[id number] Sodium Chloride 0.9% 1, 240 240 220 000 ml @ 20 mls/hr IV . Q24H ENRIQUE Rx#:[id number] Vancomycin 1,500 mg In 250 250 Sodium Chloride 0.9% 250 ml @ 125 mls/hr IVPB ONCE ONE Rx#:[id number] metroNIDAZOLE-NS PMX 500 100 200 mg In Saline 1 100ml.bag @ 100 mls/hr IVPB Q8H [facility] Rx#:[id number] Intake, IV Titration 815.161 685.274 428.676 Amount Amiodarone 300 mg In 236.25 Dextrose 5% in Water 250 ml @ 0.5 MG/MIN 25 mls/hr IV .Q10H [facility] Rx#: [id number] Furosemide 100 mg In 100 Sodium Chloride 0.9% 90 ml @ 15 MG/HR 15 mls/hr IV .Q6H40M [facility] Rx#: [id number] Lidocaine-D5w Pmx 2G/ 180.375 250Ml 2,000 mg In Dextrose/Water 1 250ml. bag @ 1 MG/MIN 7.5 mls/hr IV .Q24H [facility] Rx#: [id number] Norepinephrine 32 mg In 16.239 138.253 Sodium Chloride 0.9% 218 ml @ 0.3 MCG/KG/MIN 13. 458 mls/hr IV .[id number] [facility] Rx#:[id number] Norepinephrine 8 mg In 425.686 256.224 Sodium Chloride 0.9% 250 ml @ 0.1 MCG/KG/MIN 17. 763 mls/hr IV .[id number] [facility] Rx#:[id number] Propofol 1,000 mg In 289.475 176.561 110.048 Empty Bag 1 bag @ Titrate IV .Q0M [facility] Rx#: [id number] Tube Feeding 330 360 300 Other 90 60 120 Output: Urine 15 65 35 Hemodialysis 0 Other: Voiding Method Indwelling Catheter Indwelling Catheter Indwelling Catheter ABP, PAP, CO, CI - Last Documented Arterial Blood Pressure 130/40 - Exam Intubated sedated on full respiratory support diffuse ecchymosis edema and third spacing - Constitutional General appearance: disheveled, mild distress, morbidly obese - Neck Neck: Supple Carotids: bilateral: upstroke normal - Respiratory Respiratory: bilateral: diminished, dullness, rales bronchial breath sounds especially on the right side - Cardiovascular Rhythm: regular Heart sounds: normal: S1, S2 - Gastrointestinal General gastrointestinal: normal bowel sounds, soft - Musculoskeletal Musculoskeletal: generalized weakness, strength equal bilaterally - Psychiatric Psychiatric: Sedated on full ventilator support Edema involving the lower extremity up to the abdominal level, in addition left diabetic foot involvement of the toes - Labs CBC & Chem 7: 02/05/20 04:00 02/05/20 04:00 Labs: Abnormal Lab Results - Last 24 Hours (Table) 02/04/20 02/05/20 02/05/20 Range/Units 19:54 00:01 04:00 WBC (3.8-10.6) k/uL RBC (4.30-5.90) m/uL Hgb (13.0-17.5) gm/dL Hct (39.0-53.0) % MCHC (31.0-37.0) g/dL RDW (11.5-15.5) % Neutrophils # (Manual) (1.3-7.7) k/uL Lymphocytes # (Manual) (1.0-4.8) k/uL Monocytes # (Manual) (0-1.0) k/uL PT (9.0-12.0) sec INR (<1.2) ABG pH (7.35-7.45) ABG HCO3 (21-25) mmol/L ABG O2 Saturation (94-97) % Sodium 135 L (137-145) mmol/L Carbon Dioxide 19 L (22-30) mmol/L BUN 77 H (9-20) mg/dL Creatinine 4.86 H (0.66-1.25) mg/dL Glucose 181 H (74-99) mg/dL POC Glucose (mg/dL) 100 H 152 H (75-99) mg/dL Calcium 7.3 L (8.4-10.2) mg/dL AST 132 H (17-59) U/L Total Protein 5.1 L (6.3-8.2) g/dL Albumin 2.4 L (3.5-5.0) g/dL 02/05/20 02/05/20 02/05/20 Range/Units 04:00 04:06 05:31 WBC 21.6 H (3.8-10.6) k/uL RBC 3.85 L (4.30-5.90) m/uL Hgb 10.8 L (13.0-17.5) gm/dL Hct 36.3 L (39.0-53.0) % MCHC 29.8 L (31.0-37.0) g/dL RDW 16.9 H (11.5-15.5) % Neutrophils # (Manual) 18.50 H (1.3-7.7) k/uL Lymphocytes # (Manual) 0.65 L (1.0-4.8) k/uL Monocytes # (Manual) 1.94 H (0-1.0) k/uL PT (9.0-12.0) sec INR (<1.2) ABG pH 7.34 L (7.35-7.45) ABG HCO3 20 L (21-25) mmol/L ABG O2 Saturation 98.5 H (94-97) % Sodium (137-145) mmol/L Carbon Dioxide (22-30) mmol/L BUN (9-20) mg/dL Creatinine (0.66-1.25) mg/dL Glucose (74-99) mg/dL POC Glucose (mg/dL) 173 H (75-99) mg/dL Calcium (8.4-10.2) mg/dL AST (17-59) U/L Total Protein (6.3-8.2) g/dL Albumin (3.5-5.0) g/dL 02/05/20 02/05/20 02/05/20 Range/Units 07:36 08:09 11:54 WBC (3.8-10.6) k/uL RBC (4.30-5.90) m/uL Hgb (13.0-17.5) gm/dL Hct (39.0-53.0) % MCHC (31.0-37.0) g/dL RDW (11.5-15.5) % Neutrophils # (Manual) (1.3-7.7) k/uL Lymphocytes # (Manual) (1.0-4.8) k/uL Monocytes # (Manual) (0-1.0) k/uL PT 36.9 H (9.0-12.0) sec INR 3.8 H (<1.2) ABG pH (7.35-7.45) ABG HCO3 (21-25) mmol/L ABG O2 Saturation (94-97) % Sodium (137-145) mmol/L Carbon Dioxide (22-30) mmol/L BUN (9-20) mg/dL Creatinine (0.66-1.25) mg/dL Glucose (74-99) mg/dL POC Glucose (mg/dL) 166 H 211 H (75-99) mg/dL Calcium (8.4-10.2) mg/dL AST (17-59) U/L Total Protein (6.3-8.2) g/dL Albumin (3.5-5.0) g/dL 02/05/20 Range/Units 16:57 WBC (3.8-10.6) k/uL RBC (4.30-5.90) m/uL Hgb (13.0-17.5) gm/dL Hct (39.0-53.0) % MCHC (31.0-37.0) g/dL RDW (11.5-15.5) % Neutrophils # (Manual) (1.3-7.7) k/uL Lymphocytes # (Manual) (1.0-4.8) k/uL Monocytes # (Manual) (0-1.0) k/uL PT (9.0-12.0) sec INR (<1.2) ABG pH (7.35-7.45) ABG HCO3 (21-25) mmol/L ABG O2 Saturation (94-97) % Sodium (137-145) mmol/L Carbon Dioxide (22-30) mmol/L BUN (9-20) mg/dL Creatinine (0.66-1.25) mg/dL Glucose (74-99) mg/dL POC Glucose (mg/dL) 205 H (75-99) mg/dL Calcium (8.4-10.2) mg/dL AST (17-59) U/L Total Protein (6.3-8.2) g/dL Albumin (3.5-5.0) g/dL Microbiology - Last 24 Hours (Table) 02/03/20 19:50 Gram Stain - Preliminary Sputum Sputum Culture - Preliminary Assessment and Plan Assessment: Status post cardiopulmonary arrest Intermittent runs of V. tach rhythm appears to be more organized now on lidocaine and amiodarone Aspiration pneumonia Status post V. fib cardiac arrest Acute renal failure mostly appears to be cardiorenal Upper GI coffee-ground emesis likely due to stress ulceration patient has been on Protonix Acute on chronic hypoxic respiratory failure Acute on chronic heart failure related to systolic heart failure Left foot with inflammation involving toes Bilateral pleural effusion Bilateral basal atelectasis COPD without exacerbation Severe leg uncontrolled diabetes with chronic complication with worsening Chronic atrial fibrillation Coagulopathy with elevated PT/INR, Coumadin is on hold Stage IV chronic renal failure baseline Plan: Continue to attempt hemodialysis as planned Status post central line and A-line Continue to monitor patient closely in ICU Replace electrolytes Continue amiodarone Continue lidocaine Continue broad-spectrum antibiotics with Flagyl and vancomycin and cefapime Continue ventilator adjustment as needed and tolerated Tube feed Hypothermia protocol not available in this institution Continue bronchodilators Labs and chest x-ray have been ordered for tomorrow As far as pleural effusion is concerned will monitor and observe no plans for thoracentesis Monitor renal functions and electrolytes closely Continue to hold Coumadin for now monitor observe PT/INR closely Further recommendations pending plan of care as per clinical response of patient, long-term prognosis poor Time with Patient: Greater than 30
[2020-02-05] MEDS ORDERED: WARFARIN 0.5 MG TAB PO ONE (18:00)
[2020-02-05 20:17] LABS: Glucose,Whole Blood 160 mg/dL (75-99)
--- NOTE | 2020-02-05 20:23 | PN ---
PROGRESS NOTE Patient is seen for followup for acute kidney injury on top of chronic kidney disease, currently end-stage renal disease. Patient was started on dialysis. He has had just one treatment so far. He was scheduled for dialysis again today; however, he became hypotensive over the weekend requiring pressors. The Levophed is currently being weaned down. Patient's blood pressure is stable around 120 to 130 and his Levophed is down to about 20 mcg. He is stable on the vent. FiO2 is at 40%. Heart rate stays about 50 per minute. Patient is afebrile. EXAMINATION OF THE HEART: S1 and S2. EXAMINATION OF LUNGS: Bilateral breath sounds are heard. ABDOMEN: Soft, non-tender. Examination of lower extremities shows chronic edema. BLUE[employer]ER exam is not cannot be performed. Labs show sodium 135, potassium 4.4, chloride 103, BUN 77, serum creatinine 4.86, albumin 2.4, hemoglobin 10.8 g/dL. ASSESSMENT: 1. End-stage renal disease, started on hemodialysis this admission. Patient is scheduled for hemodialysis treatment today, as he is more hemodynamically stable. 2. Status post cardiac arrest. 3. Ventricular fibrillation, maintained on amiodarone, being followed by Cardiology. 4. Volume overload, currently on the vent. FiO2 is stable. We will plan for about a liter of ultrafiltration today and, if tolerated, repeat on 02/07/2020. 5. Possible pneumonia; Gram-negative rods in sputum, maintained on antibiotics. 6. Chronic kidney disease mineral bone disorder, maintained on calcitriol. 7. Anemia of chronic disease, maintained on Aranesp. PLAN: Try hemodialysis today, UF about one liter, and repeat hemodialysis if tolerated on 02/07/2020. MMODL / IJN: [id number] /
[2020-02-05] MEDS: MONTELUKAST 10 MG TAB PO SCH (20:24)
[2020-02-05] MEDS: TAMSULOSIN 0.4 MG CAP.ER.24H PO SCH (20:24)
[2020-02-05] MEDS: AMIODARONE 200 MG TAB PO SCH (20:24)
--- NOTE | 2020-02-05 23:13 | PN ---
PROGRESS NOTE The patient did not tolerate dialysis today, developed hypotension. History of chronic kidney disease, end-stage renal disease. He became hypotensive, requiring vasopressors. Levophed has been continued to 20 mcg. FiO2 is 40%. Heart rate is about 50 per minute. He is afebrile. Lungs are good x4. HEART: S1, S2. Abdomen is soft, nontender. Cranial nerves are intact. Patient has upper GI bleed, coffee-ground emesis runs of ventricular tachycardia, aspiration pneumonia, gastric distention, systolic, diastolic heart failure, pleural effusion, COPD, coagulopathy. The patient did not tolerate dialysis, as mentioned above. He remains on vasopressors, broad-spectrum antibiotics. White count is 21.6, hemoglobin 10.8. Sodium 135, BUN 77, creatinine 4.86. PSYCH: Stable. On full support. MUSCULOSKELETAL: Generalized weakness. GI: Soft. CARDIOVASCULAR: S1, S2. ASSESSMENT: 1. Status post cardiopulmonary arrest. 2. Status post ventricular tachycardia. lidocaine, amiodarone. 1. Aspiration pneumonia. 2. Acute renal failure. 3. End-stage renal disease, cardiorenal. 4. Upper GI emesis ulcer, on Protonix. 5. Acute on chronic hypoxemic respiratory failure. 6. Systolic, diastolic heart failure. 7. Prior lateral pleural effusion. 8. Chronic obstructive pulmonary disease. 9. Chronic atrial fibrillation. 10.Coagulopathy. 11.Elevated PT and INR .. 12.Stage IV chronic renal failure. Wean Levophed. Hemodialysis as tolerated. Broad-spectrum antibiotics. Prognosis guarded. ICU time 20 minutes. MMODL / PETRAN: [id number] /
[2020-02-05 23:56] LABS: Glucose,Whole Blood 187 mg/dL (75-99)
[2020-02-06 04:19] LABS: Glucose,Whole Blood 176 mg/dL (75-99)
[2020-02-06] MEDS: INSULIN ASPART (NovoLOG) 100 UNIT/ML VIAL SQ SCH ×6 (04:25→23:03)
[2020-02-06 04:27] LABS: Anisocytosis Slight; Basophils % (A) 0 %; Eosinophils # (A) 0.2 k/uL (0-0.7); Eosinophils % (A) 1 %; HCT 34.1 % (39.0-53.0); HGB 10.5 gm/dL (13.0-17.5); Hypochromasia Moderate; Lymphocytes # (A) 0.8 k/uL (1.0-4.8); Lymphocytes % (A) 5 %; MCH 28.7 pg (25.0-35.0); MCHC 30.8 g/dL (31.0-37.0); MCV 93.4 fL (80.0-100.0); Mean Platelet Volume 8.8; Monocytes # (A) 0.8 k/uL (0-1.0); Monocytes % (A) 5 %; Neutrophils # (A) 15.3 k/uL (1.3-7.7); Neutrophils % (A) 88 %; Platelet Count 217 k/uL (150-450); RBC 3.65 m/uL (4.30-5.90); WBC 17.4 k/uL (3.8-10.6)
[2020-02-06 04:32] LABS: Prothrombin Time 39.9 sec (9.0-12.0)
[2020-02-06 04:51] LABS: Albumin 2.3 g/dL (3.5-5.0); Calcium 7.4 mg/dL (8.4-10.2); Potassium 4.8 mmol/L (3.5-5.1); Total Bilirubin 0.6 mg/dL (0.2-1.3); Total Protein 4.9 g/dL (6.3-8.2)
[2020-02-06 04:56] LABS: Vancomycin,Random 24.1 ug/mL
[2020-02-06 05:03] LABS: ABG Base Excess -8.1 mmol/L; ABG HCO3 18 mmol/L (21-25); ABG Oxygen Saturation 97.8 % (94-97); ABG PCO2 35 mmHg (35-45); ABG PH 7.32 (7.35-7.45); ABG PO2 108 mmHg (83-108); ABG TCO2 19 mmol/L (19-24)
[2020-02-06 05:11] LABS: Allen Test Performed? no
[2020-02-06] MEDS: metroNIDAZOLE-NS PMX 500 MG in SALINE 1 100ML.BAG IVPB SCH ×2 (05:42→14:25)
--- NOTE | 2020-02-06 06:17 | XR ---
EXAMINATION TYPE: XR chest 1V DATE OF EXAM: 02/06/2020 CLINICAL HISTORY: Difficulty breathing progress study. TECHNIQUE: Single AP portable semiupright view of the chest is obtained. COMPARISON: Chest x-ray from one day earlier and older studies. CT chest August 10, 2017. FINDINGS: Stable endotracheal tube, orogastric tube, and right internal jugular central venous g[address] ter. Persistent cardiomegaly with dual lead pacemaker and atherosclerotic thoracic aorta. Persistent centr al vascular congestion and bibasilar opacities. Upper lungs remain clear without pneumothorax. Osseou s structures are intact. IMPRESSION: Suspect persistent CHF exacerbation as there is cardiomegaly with fairly moderate central vascular congestion along with small bilateral pleural effusions and associated bibasilar compressiv e atelectasis and/or less likely acute infiltrates are all redemonstrated. No significant change from one day earlier.
[2020-02-06] MEDS: ISOSORBIDE MONONITRATE ER 15 MG TAB PO SCH (07:36)
[2020-02-06] MEDS: CARVEDILOL 3.125 MG TAB PO SCH ×2 (07:36→19:37)
[2020-02-06] MEDS: IPRATROPIUM-ALBUTEROL 3 ML NEB INHALATION SCH ×4 (07:51→20:29)
[2020-02-06 08:14] LABS: Glucose,Whole Blood 158 mg/dL (75-99)
[2020-02-06] MEDS: CHLORHEXIDINE GLUCONATE 15 ML CUP MUCOUS MEM SCH ×2 (08:30→20:00)
[2020-02-06] MEDS: PANTOPRAZOLE 40 MG/10 ML VIAL IVP SCH ×2 (08:30→20:00)
[2020-02-06] MEDS: SENNOSIDES 8.6 MG TAB PO SCH ×2 (08:31→20:00)
[2020-02-06] MEDS: CARBIDOPA-LEVODOPA 10-100 MG 1 EACH TAB PO SCH ×2 (08:31→20:00)
[2020-02-06] MEDS: METOLAZONE 5 MG TAB PO SCH ×2 (08:31→20:00)
[2020-02-06] MEDS: AMIODARONE 200 MG TAB PO SCH ×2 (08:31→20:00)
[2020-02-06] MEDS ORDERED: CEFEPIME 1 GM in SODIUM CHLORIDE 0.9% 50 ML IVPB SCH (09:00)
[2020-02-06] MEDS: SODIUM CHLORIDE 0.9% 1,000 ML IV SCH (11:04)
[2020-02-06 11:34] LABS: Glucose,Whole Blood 169 mg/dL (75-99)
[2020-02-06] MEDS: DARBEPOETIN ALFA 40 MCG/0.4 ML SYRINGE SQ SCH (11:37)
--- NOTE | 2020-02-06 12:58 | EEG ---
ELECTROENCEPHALOGRAM REPORT DATE OF SERVICE: 02/06/2020. HISTORY: This is an inpatient EEG performed on an 79-year-old gentleman, status post cardiac arrest, anoxic brain injury. The patient currently is off sedation and only exam findings consist of a gag reflex, minimal corneal blink reflex. No clinical or reports of seizures have been noted. TECHNICAL REPORT: This is an inpatient EEG performed on the [employer] EEG monitor with electrodes placed according to the International 10-20 system and a single EKG channel. Simultaneous video EEG monitoring was performed. This EEG was reviewed in both longitudinal bipolar, common average referential and transverse montages. Photic stimulation was performed. Hyperventilation was not performed. The recording begins with a suppressed background with intermittent 1-2 seconds of 4 hertz theta frequencies noted in the parietal and temporal lobes. The background in the occipital head region remained severely suppressed throughout the recording. There were intermittent periods of 1 up to maximum 3 seconds of generalized suppression occurring. Throughout this recording, periodic lateralized epileptiform discharges are noted bifrontally with max negativity over the right frontal head region. The periodic lateralized epileptiform discharges appear in a both rhythmic and a semi rhythmic pattern lasting for 1-2 seconds duration. Frequent surface positive sharp waves appear over the left frontal temporal head region. During photic stimulation, there was increase in reactivity noted in the background with muscle artifact. However, the background did not increase greater than 4 hertz. The background in the occipital electrode placement still remain severely suppressed in the photic stimulation and 4 hertz theta frequencies were only noted along the parietal temporal electrode placement. No clear awake sleep stages were recorded. No abnormalities noted in the EKG. IMPRESSION: 1. This is a severely abnormal EEG consistent with encephalopathy. There are frequent epileptiform discharges noted throughout the recording and at times the appearance of electrographic seizure activity emanating from the right frontal head region. 2. During photic stimulation, indicates that this patient is not brain . There is reactivity to the background. 3. No abnormalities were noted in the EKG. CLINICAL CORRELATION: This EEG is not consistent with brain as there is significant reactivity to photic stimulation. This EEG does suggest the patient has increased risk for seizure activity based on the abundant periodic lateralized epileptiform discharges and intermittent electrographic seizures. The appearance of Periodic lateralized epileptiform discharges, and surface positive sharp waves are often seen in anoxic brain injury. Neuro imaging studies are recommended if possible such as an MRI of the brain along with serial EEGs and if clinically indicated preferably a more prolonged overnight EEG monitoring. At the present time. It does not appear that the patient is in electrographic status. However, this patient should be started on anticonvulsant medication. The RN in charge was contacted with a verbal order given for valproic acid 250 mg IV stat q.8 hours. MMCALLI / PETRAN: [id number] / Lazara Shah MD Board Certified in Neurology and Sleep medicine [facility]
--- NOTE | 2020-02-06 13:06 | CONS ---
KALEIGH Renee is an 79-year-old patient who is admitted to hospital with congestive heart failure and subsequently developed respiratory failure. He is intubated on vent. There is not much change in his clinical situation from yesterday. He is on Cordarone, Sinemet, Imdur, metolazone and was on Levophed. It appears as the patient developed ileus as he has had ventricular tachycardia and is currently on IV lidocaine. He was on IV amiodarone which I stopped. LABS: Today show that the BUN and creatinine are elevated at 89 and 5.5. AST, ALT are getting better. INR is still elevated at 4.2. He is not receiving any Coumadin. The INR elevation is probably related to the amiodarone. ill monitor it closely. PHYSICAL EXAM: Patient is intubated on vent. Heart rate is 50 beats per minute. He is on FiO2 at 40%. Chest exam reveals diminished air entry bilaterally with occasional rhonchi. Heart exam reveals first and second heart sounds, systolic murmur left lower sternal border. Abdomen is soft. Exam of extremities reveals mild edema bilaterally. LABS: Show a hemoglobin of 10.5. Potassium is 4.8, creatinine is 5.5. ASSESSMENT: 1. Acute exacerbation of chronic congestive heart failure. 2. Acute respiratory failure. 3. History of atrial fibrillation. 4. Ventricular tachycardia. PLAN: The patient will continue with current medications. His prognosis is guarded. MMODL / IJN: [id number] /
[2020-02-06 13:35] LABS: Albumin 2.2 g/dL (3.5-5.0); Calcium 7.3 mg/dL (8.4-10.2); Potassium 4.8 mmol/L (3.5-5.1); Total Bilirubin 0.6 mg/dL (0.2-1.3); Total Protein 4.9 g/dL (6.3-8.2)
--- NOTE | 2020-02-06 14:53 | P.PN ---
Subjective Progress Note Date: 02/06/20 (Critical care time 35 minutes) Principal diagnosis: Status post cardiopulmonary arrest Intermittent runs of V. tach Aspiration pneumonia Acute hypoxic respiratory failure Acute on chronic renal failure Upper GI bleed/coffee-ground emesis Gastric distention Acute on chronic heart failure related to systolic heart failure Left foot with inflammation involving toes Bilateral pleural effusion Bilateral basal atelectasis COPD without exacerbation Severe leg uncontrolled diabetes with chronic complication with worsening Chronic atrial fibrillation Coagulopathy with elevated PT/INR, Coumadin is on hold Stage IV chronic renal failure 02/06/2020, patient seen eval examined during the rounds labs reviewed medications reviewed care plan discussed with the staff at length, propofol has been discontinued since last night patient remains unresponsive, neurology service has been following computed tomography scan of the head has been ordered, EKG repeat is pending, pulmonary-quiñones have patient has been doing better remains afebrile no significant respiratory secretions are seen FiO2 is down to 40% remains on PEEP of 10 and tidal volume of 500 rate of 16 breathing about 20-24, we can safely bring down the PEEP to 5 now, chest x-ray reviewed bilateral interstitial Petrin is present but now patient appears to be developing bilateral pleural effusion, dialysis is not performed today patient remains on 16 mics of levo fed, remains on broad-spectrum antibiotics, no significant arrhythmias noted, renal function continued to go up, patient to feed is on hold due to high residuals will start Reglan and reattempt in next 24 hours 02/05/2020, patient seen eval reexamined during her medication was resumed and continue breathing over the ventilator, current setting include assist control rate of 16 breathing about 20-24, tidal volume is 500, PEEP is 10, FiO2 is down to 40% now, heart rhythm remains in flutter with paced rhythm bradycardic about 45-50, patient remained on lidocaine drip, the amiodarone has been changed to oral, for hemodynamic support patient remains on 18 mics of levo fed, however it's down from 30 mics from this morning, less cyanosis in hand and toes noted, cultures have been negative, patient is tolerating tube feed well, chest x-ray shows stability, patient remains on broad-spectrum antibiotics for the diabetic foot ulcer and as well as a right-sided aspiration pneumonia on cephapirin Vanco and Flagyl, patient could not tolerate dialysis today due to fluctuation in blood pressure and rhythm, will reattempt tomorrow patient is definitely not ready for weaning critical care time 35 minutes 02/04/2020, patient seen and evaluated examined during the round remains on full ventilator support currently on assist control 16, tidal Volume of 500, 10 of PEEP and 50% oxygen, ABGs are stable, chest x-ray revealed stable, continue show dense right-sided infiltrate, but overall is stable, patient is intermittently regarding runs of V. tach, extra dose of amiodarone has been given, cardiovascular services following, patient is on 20 mics of levo fed, Keofeed is stable, patient has discoloration of fingers and toes, due to vasoconstriction related to the vasopressors, A-line and central line has been working labs reviewed, overall given the irritable nature of myocardium long-term prognosis is poor patient remains a full code was discussed cord issue with the family as per request of hospital staff, patient overall appears to not tolerate the CPR or shock in the event need arise, critical care time 35 minutes 02/03/2020, patient seen and evaluated examined during the rounds sedated with propofol drip about 30 mics patient is on full vent support, hypoxia Significantly worse after V. fib cardiac arrest have been earlier this morning, patient has been intubated, chest x-ray reviewed, patient is on amiodarone drip, status post ACLS protocol, revived, patient underwent a hemodialysis catheter this morning, currently dialysis is undergoing plan is to remove a liter, patient is on levo fed drip, urgently needed central line and A-line because of poor peripheral IV axis and risk of externalization of vasopressors, still have coffee-ground material coming but severity appears to improve gastric secretions light and now patient is on Armaan Keofeed can be started, patient has third spacing and tissue edema with ecchymosis and bruising upper extremity, also has diabetic foot ulcer, patient remains on broad-spectrum antibiotic with Cefepime, we'll add vancomycin with pharmacy to dose, vent setting currently include assist control with PEEP of 10 FiO2 is 60% oxygen saturations were dropping into high 80s FiO2 increase to 70%, critical care time spent 35 minutes 02/02/2020, patient seen eval examined during the rounds labs reviewed medications reviewed, patient remains on dobutamine drip off of dopamine drip he is on Lasix 50 mg an hour, patient due to gastric distention was the having coffee-ground and Mrs. however hemoglobin remained stable white cell count went up to 15,000, patient INR isn't therapeutic range now,, patient has been on proton pump inhibitor, a computed tomography scan of the abdominal and pelvis has been performed which has been reviewed no gastric outlet obstruction has be en noted but stomach may be slightly distended due to air, arterial blood gas have been reviewed adequate ventilation and oxygenation is present x-ray however suggestive of the fluid overload with bilateral pleural effusion not much change, renal functions remains on the higher level, patient likely will need hemodialysis with volume removal, care plan discussed with the staff further recommendations pending plan of care as per clinical response of the patient 02/01/2020, patient seen eval examined during the rounds, he remains afebrile, hemodynamic status stable however the blood pressure continue be on the low side oxygen saturation is 98% on 2 L, patient remains on breathing treatments and broad-spectrum antibiotics, do vitamin have been on hold due to tachycardia however remains on Lasix drip, Coumadin remains on hold recommend to check on a daily basis and resume Coumadin once is okay from cardiovascular services 01/31/2020, patient seen eval examined during the rounds has history of oxygen breathing status stable, saturation is 90-93%, patient has been on dobutamine and dopamine and Lasix strip, INR is coming down, BUN/creatinine slightly up This is a 79-year-old male who was seen evaluated examined on third floor, patient came into the hospital with progressive shortness of breath associated with last 1-2 weeks with increased swelling progressively from the 4 extremities to mid abdominal level in addition patient appears to be having diabetic foot infection with edema and redness in the toes as well in the left foot, patient is arousable but tired on 3 L oxygen, patient is to be started on Lasix drip along with dobutamine drip, patient has a history of COPD chronic systolic heart failure chronic atrial fibrillation diabetes along with chronic renal failure stage IV, currently patient is on WelChol dilators in the form of DuoNeb, ID service has been requested for antibiotics, his chest x-ray consistent with congestive heart failure fluid overload and pulmonary edema in addition to his interstitial edema and small bilateral pleural effusion Objective - Vital Signs Vital signs: Vital Signs Temp 98.3 F 02/06/20 12:00 Pulse 49 L 02/06/20 14:15 Resp 16 02/06/20 14:15 BP 123/4 02/06/20 09:00 Pulse Ox 100 02/06/20 14:15 Intake & Output 02/05/20 02/06/20 02/06/20 18:59 06:59 18:59 Intake Total 1368.676 886.565 264.867 Output Total 35 70 40 Balance 1333.676 816.565 224.867 Weight 95.7 kg 101.6 kg 101.6 kg Intake: IV 490 340 240 Sodium Chloride 0.9% 1, 240 240 140 000 ml @ 20 mls/hr IV . Q24H [facility] Rx#:[id number] Vancomycin 1,500 mg In 250 Sodium Chloride 0.9% 250 ml @ 125 mls/hr IVPB ONCE ONE Rx#:[id number] metroNIDAZOLE-NS PMX 500 100 100 mg In Saline 1 100ml.bag @ 100 mls/hr IVPB Q8H [facility] Rx#:[id number] Intake, IV Titration 428.676 116.565 24.867 Amount Lidocaine-D5w Pmx 2G/ 180.375 250Ml 2,000 mg In Dextrose/Water 1 250ml. bag @ 1 MG/MIN 7.5 mls/hr IV .Q24H [facility] Rx#: [id number] Norepinephrine 32 mg In 138.253 95.702 24.867 Sodium Chloride 0.9% 218 ml @ 0.3 MCG/KG/MIN 13. 458 mls/hr IV .[id number] [facility] Rx#:[id number] Propofol 1,000 mg In 110.048 20.863 Empty Bag 1 bag @ Titrate IV .Q0M [facility] Rx#: [id number] Tube Feeding 330 340 Other 120 90 Output: Urine 35 70 40 Hemodialysis 0 Other: Voiding Method Indwelling Catheter Indwelling Catheter Indwelling Catheter ABP, PAP, CO, CI - Last Documented Arterial Blood Pressure 137/46 - Exam Intubated sedated on full respiratory support diffuse ecchymosis edema and third spacing - Constitutional General appearance: disheveled, mild distress, morbidly obese - Neck Neck: Supple Carotids: bilateral: upstroke normal - Respiratory Respiratory: bilateral: diminished, dullness, rales bronchial breath sounds especially on the right side - Cardiovascular Rhythm: regular Heart sounds: normal: S1, S2 - Gastrointestinal General gastrointestinal: normal bowel sounds, soft - Musculoskeletal Musculoskeletal: generalized weakness, strength equal bilaterally - Psychiatric Psychiatric: Sedated on full ventilator support Edema involving the lower extremity up to the abdominal level, in addition left diabetic foot involvement of the toes - Labs CBC & Chem 7: 02/06/20 04:10 02/06/20 12:48 Labs: Abnormal Lab Results - Last 24 Hours (Table) 02/05/20 02/05/20 02/05/20 Range/Units 16:57 20:14 23:55 WBC (3.8-10.6) k/uL RBC (4.30-5.90) m/uL Hgb (13.0-17.5) gm/dL Hct (39.0-53.0) % MCHC (31.0-37.0) g/dL RDW (11.5-15.5) % Neutrophils # (1.3-7.7) k/uL Lymphocytes # (1.0-4.8) k/uL PT (9.0-12.0) sec INR (<1.2) ABG pH (7.35-7.45) ABG HCO3 (21-25) mmol/L ABG O2 Saturation (94-97) % Sodium (137-145) mmol/L Carbon Dioxide (22-30) mmol/L BUN (9-20) mg/dL Creatinine (0.66-1.25) mg/dL Glucose (74-99) mg/dL POC Glucose (mg/dL) 205 H 160 H 187 H (75-99) mg/dL Calcium (8.4-10.2) mg/dL AST (17-59) U/L Total Protein (6.3-8.2) g/dL Albumin (3.5-5.0) g/dL 02/06/20 02/06/20 02/06/20 Range/Units 04:10 04:10 04:10 WBC 17.4 H (3.8-10.6) k/uL RBC 3.65 L (4.30-5.90) m/uL Hgb 10.5 L (13.0-17.5) gm/dL Hct 34.1 L (39.0-53.0) % MCHC 30.8 L (31.0-37.0) g/dL RDW 17.0 H (11.5-15.5) % Neutrophils # 15.3 H (1.3-7.7) k/uL Lymphocytes # 0.8 L (1.0-4.8) k/uL PT 39.9 H (9.0-12.0) sec INR 4.0 H (<1.2) ABG pH (7.35-7.45) ABG HCO3 (21-25) mmol/L ABG O2 Saturation (94-97) % Sodium 136 L (137-145) mmol/L Carbon Dioxide 17 L (22-30) mmol/L BUN 89 H (9-20) mg/dL Creatinine 5.57 H (0.66-1.25) mg/dL Glucose 180 H (74-99) mg/dL POC Glucose (mg/dL) (75-99) mg/dL Calcium 7.4 L (8.4-10.2) mg/dL AST 69 H (17-59) U/L Total Protein 4.9 L (6.3-8.2) g/dL Albumin 2.3 L (3.5-5.0) g/dL 02/06/20 02/06/20 02/06/20 Range/Units 04:17 05:00 08:13 WBC (3.8-10.6) k/uL RBC (4.30-5.90) m/uL Hgb (13.0-17.5) gm/dL Hct (39.0-53.0) % MCHC (31.0-37.0) g/dL RDW (11.5-15.5) % Neutrophils # (1.3-7.7) k/uL Lymphocytes # (1.0-4.8) k/uL PT (9.0-12.0) sec INR (<1.2) ABG pH 7.32 L (7.35-7.45) ABG HCO3 18 L (21-25) mmol/L ABG O2 Saturation 97.8 H (94-97) % Sodium (137-145) mmol/L Carbon Dioxide (22-30) mmol/L BUN (9-20) mg/dL Creatinine (0.66-1.25) mg/dL Glucose (74-99) mg/dL POC Glucose (mg/dL) 176 H 158 H (75-99) mg/dL Calcium (8.4-10.2) mg/dL AST (17-59) U/L Total Protein (6.3-8.2) g/dL Albumin (3.5-5.0) g/dL 02/06/20 02/06/20 Range/Units 11:33 12:48 WBC (3.8-10.6) k/uL RBC (4.30-5.90) m/uL Hgb (13.0-17.5) gm/dL Hct (39.0-53.0) % MCHC (31.0-37.0) g/dL RDW (11.5-15.5) % Neutrophils # (1.3-7.7) k/uL Lymphocytes # (1.0-4.8) k/uL PT (9.0-12.0) sec INR (<1.2) ABG pH (7.35-7.45) ABG HCO3 (21-25) mmol/L ABG O2 Saturation (94-97) % Sodium (137-145) mmol/L Carbon Dioxide 18 L (22-30) mmol/L BUN 92 H (9-20) mg/dL Creatinine 5.87 H (0.66-1.25) mg/dL Glucose 151 H (74-99) mg/dL POC Glucose (mg/dL) 169 H (75-99) mg/dL Calcium 7.3 L (8.4-10.2) mg/dL AST (17-59) U/L Total Protein 4.9 L (6.3-8.2) g/dL Albumin 2.2 L (3.5-5.0) g/dL Microbiology - Last 24 Hours (Table) 02/03/20 19:50 Gram Stain - Final Sputum Sputum Culture - Final Corynebacterium striatum Assessment and Plan Assessment: Altered mental status encephalopathy/coma likely related to propofol but component of anoxic injury to brain cannot be excluded Status post cardiopulmonary arrest Intermittent runs of V. tach rhythm appears to be more organized now on lidocaine and amiodarone Aspiration pneumonia Status post V. fib cardiac arrest Acute renal failure mostly appears to be cardiorenal Upper GI coffee-ground emesis likely due to stress ulceration patient has been o n Protonix Acute on chronic hypoxic respiratory failure Acute on chronic heart failure related to systolic heart failure Left foot with inflammation involving toes Bilateral pleural effusion Bilateral basal atelectasis COPD without exacerbation Severe leg uncontrolled diabetes with chronic complication with worsening Chronic atrial fibrillation Coagulopathy with elevated PT/INR, Coumadin is on hold Stage IV chronic renal failure baseline Plan: Continue to attempt hemodialysis as planned CT of the head and repeat EEG is pending Will reduce the PEEP to 5 now Titrate down the vasopressors as tolerated Continue to monitor patient closely in ICU Replace electrolytes Continue amiodarone Continue lidocaine Continue broad-spectrum antibiotics with Flagyl and vancomycin and cefapime Continue ventilator adjustment as needed and tolerated Tube feed on hold for now will start Reglan then reattempt in next 24 hours Hypothermia protocol not available in this institution Continue bronchodilators Labs and chest x-ray have been ordered for tomorrow As far as pleural effusion is concerned will monitor and observe no plans for thoracentesis Monitor renal functions and electrolytes closely Continue to hold Coumadin for now monitor observe PT/INR closely Further recommendations pending plan of care as per clinical response of patient, long-term prognosis poor Time with Patient: Greater than 30
--- NOTE | 2020-02-06 15:24 | PN ---
PROGRESS NOTE Patient is seen for followup for acute kidney injury on top of chronic kidney disease, currently end-stage renal disease. Patient has been started on dialysis, although he has had only one treatment on 02/03/2020. He was unable to tolerate another treatment yesterday and blood pressure dropped down into the 60s and 70s within 15 minutes of starting treatment. Patient was taken off. His dialysis catheter needs to be changed as well prior to repeat treatment. However, this morning he has not been waking up and an EEG was performed. Patient is being seen by Neurology, and if there are no plans to pursue further aggressive medical care, we will not change the dialysis catheter. Patient currently remains on the vent. He is hemodynamically stable. Levophed is down to about 10 mcg. Blood pressure was 116/39. Patient is afebrile. Heart rate about 49 per minute. Bilateral breath sounds are heard. Abdomen is soft. Examination of lower extremities shows chronic skin changes, edema 1+ bilaterally. 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 Labs show sodium 137, potassium 4.8, chloride 105. CO2 is 18, BUN 92, creatinine 5.87. ASSESSMENT: 1. Chronic kidney disease, currently end-stage renal disease, status post one treatment of hemodialysis. If aggressive medical care is planned after the EEG result is obtained, we will need to change the dialysis catheter. 2. Anoxic encephalopathy. 3. Status post cardiac arrest. 4. Hypoxic respiratory failure, currently on the vent. 5. Volume overload. 6. Metabolic acidosis associated with renal failure. PLAN: Change dialysis catheter if there are plans to proceed with aggressive medical care. Follow up on the EEG results and neurology opinion. Hold hemodialysis today. MMODL / IJN: [id number] /
[2020-02-06] MEDS: METOCLOPRAMIDE 5 MG/ML 2 ML VIAL IVP SCH ×2 (15:50→22:59)
--- NOTE | 2020-02-06 16:35 | CT ---
EXAMINATION TYPE: CT brain wo con DATE OF EXAM: 02/06/2020 HISTORY: Anoxic brain injury. Cardiac arrest. CT DLP: 1099.4 mGycm. Automated Exposure Control for Dose Reduction was Utilized. TECHNIQUE: CT scan of the head is performed without contrast. COMPARISON: CT brain August 08, 2018.. FINDINGS: There is no acute intracranial hemorrhage or midline shift identified. There is diffuse v entricular and sulcal prominence consistent with diffuse age-related cerebral atrophy. There is low- attenuation in the periventricular white matter consistent with chronic small vessel ischemic change. Moderate mucosal thickening posteriorly left maxillary sinus otherwise the paranasal sinuses are jim ar. Scleral calcification bilateral globes is redemonstrated.. IMPRESSION: No acute intracranial hemorrhage or midline shift. There is mild to moderate diffuse ce rebral atrophy and moderate chronic small vessel ischemic change redemonstrated. No significant nash ge from prior CT.
[2020-02-06 16:42] LABS: Glucose,Whole Blood 146 mg/dL (75-99)
[2020-02-06] MEDS: VALPROATE SODIUM 250 MG in SODIUM CHLORIDE 0.9% 100 ML IVPB SCH ×2 (16:45→23:06)
[2020-02-06] MEDS: NOREPINEPHRINE 32 MG in SODIUM CHLORIDE 0.9% 218 ML IV SCH (16:46)
[2020-02-06] MEDS: LIDOCAINE-D5W PMX 2G/250ML 2,000 MG in DEXTROSE/WATER 1 250ML.BAG IV SCH (16:48)
[2020-02-06] MEDS ORDERED: WARFARIN 0.5 MG TAB PO ONE (18:00)
[2020-02-06] MEDS: TAMSULOSIN 0.4 MG CAP.ER.24H PO SCH (19:37)
[2020-02-06 19:41] LABS: Glucose,Whole Blood 120 mg/dL (75-99)
--- NOTE | 2020-02-06 19:43 | P.CNNES ---
History of Present Illness Consult date: 02/06/20 Chief complaint: This postcardiac arrest anoxic brain injury History of Present Illness: This is a new neurology consult requested for further advice and recommendations. The patient was initially seen by neurology on January 29 admitted for confusion. At that time the impression was that the altered mental status was secondary to metabolic encephalopathy with congestive heart failure exacerbation. Neurology signed off. On February 02 the patient is renal failure progressed and required dialysis. At this point he was determined to have severe sepsis with right sided pneumonia, diastolic heart failure acute renal failure. In the evening a CODE BLUE was called due to the patient going into ventricular arrest in the evening. Defibrillation was required and now pressors were needed due to shock. Additional findings in the notes include at the time of this arrest it was now determined he could've had an upper GI bleed. Bilateral pleural effusions. Uncontrolled severe sepsis with shock. Neurology reconsulted to assess if this patient suffered anoxic brain injury and to help make long-term management decisions. On February 04 the patient was still having difficulty tolerating dialysis due to developing hypotension. Today he has been unable to go to dialysis. The chest x-ray today shows persistent congestive heart failure exacerbation with cardiomegaly a. Small bilateral pleural effusions with bibasilar compression are present. A computed tomography scan of the head was obtained showing mild to moderate diffuse cerebral atrophy. Moderate chronic small vessel changes. Past Medical History Past Medical History: Atrial Fibrillation, Heart Failure, Diabetes Mellitus, GERD/Reflux, Hyperlipidemia, Hypertension, Osteoarthritis (OA), Renal Disease Additional Past Medical History / Comment(s): Cardiomyopathy, pulmonary hypertension, pt denies COPD as previously charted, pt no longer has hyperlipidemia-taken off medication, IDDM type II, bilateral feet peripheral neuropathy, recent past L great toe ulcer/osteomylitis-gram negative skin tammie, CKD stage IV-has occluded fistula L arm (never recieved dialysis), UTI with sepsis, chronic back/neck pain,. PUD, Left great toe osteomyelitis - 2017 History of Any Multi-Drug Resistant Organisms: None Reported Past Surgical History: Adenoidectomy, Orthopedic Surgery, Pacemaker, Tonsillectomy Additional Past Surgical History / Comment(s): lumbar facet blocks, lt breast cyst removed as child, bilateral cataract removal with lens implants,. Fistula left upper arm to use for dialysis-never used it-pt's stated "it's been occluded for 5 years", colonoscopy, picc line insertion/since removed. Total right knee replacement 02/2018 Past Anesthesia/Blood Transfusion Reactions: No Reported Reaction Type of Cardiac Device: Permanent Pacemaker Device Placement Date:: 2012 Past Psychological History: No Psychological Hx Reported Additional Psychological History / Comment(s): pt lives with his beckie in a 2 story home that has 1 front step and 12 steps to 2nd level where bedroom is. has 1 pet bird. no outside services recieved and no medical equipment. Pt drives. Smoking Status: Never smoker Past Alcohol Use History: Rare Additional Past Alcohol Use History / Comment(s): STARTED SMOKING 1964, QUIT 1993- 1-2 ppd Past Drug Use History: None Reported - Past Family History Mother Family Medical History: Diabetes Mellitus Additional Family Medical History / Comment(s): type 2 in her 70's Father Family Medical History: Diabetes Mellitus Additional Family Medical History / Comment(s): dm type 2 in his 70's Medications and Allergies Home Medications Medication Instructions Recorded Confirmed Type Isosorbide Mononitrate [Isosorbide 15 mg PO DAILY@0900 11/12/15 01/29/20 History Mononitrate ER] Montelukast [Singulair] 10 mg PO HS 11/12/15 01/29/20 History Calcitriol 0.5 mcg PO SUTH 08/10/17 01/29/20 History INSULIN LISPRO (humaLOG) [humaLOG] See Protocol SQ ACHS 09/22/17 01/29/20 History Carbidopa-Levodopa 10-100 mg 1 tab PO BID 08/08/18 01/29/20 History [Sinemet 10-100 mg] Albuterol Sulfate [Ventolin HFA] 2 puff INHALATION RT-Q6H PRN 01/29/20 01/29/20 History Allopurinol [Zyloprim] 100 mg PO Q12H 01/29/20 01/29/20 History Ammonium Lactate Cream [Lac-Hydrin 1 applic TOPICAL HS 01/29/20 01/29/20 History 12% Cream] Carvedilol [Coreg] 12.5 mg PO BID 01/29/20 01/29/20 History Furosemide [Lasix] 20 mg PO BID 01/29/20 01/29/20 History Ipratropium-Albuterol Nebulize 3 ml INHALATION RT-Q8H PRN 01/29/20 01/29/20 History [Duoneb 0.5 mg-3 mg/3 ml Soln] Potassium Chloride [Klor-Con 10] 10 meq PO DAILY 01/29/20 01/29/20 History Warfarin Sodium [Coumadin] 5 mg PO SUMOWEFR 01/29/20 01/29/20 History Warfarin [Coumadin] 7.5 mg PO TUTHSA 01/29/20 01/29/20 History Zolpidem [Ambien] 10 mg PO HS 01/29/20 01/29/20 History oxyCODONE HCL [oxyCODONE HCL (IR)] 10 mg PO Q8H PRN 01/29/20 01/29/20 History Allergies Allergy/AdvReac Type Severity Reaction Status Date / Time midodrine Allergy Rash/Hives Verified 01/29/20 17:26 sodium bicarbonate Allergy Itching Verified 01/29/20 17:26 Physical Examination - Vital Signs Vital Signs: Vital Signs Temp Pulse Resp BP Pulse Ox 02/06/20 19:00 49 L 20 113/48 99 02/06/20 18:45 49 L 16 111/47 99 02/06/20 18:30 49 L 16 119/50 99 02/06/20 18:15 49 L 16 120/49 99 02/06/20 18:00 49 L 16 119/50 99 02/06/20 17:45 49 L 16 114/50 98 02/06/20 17:30 49 L 17 116/47 98 02/06/20 17:15 49 L 16 116/48 98 02/06/20 17:00 49 L 16 125/50 98 02/06/20 16:45 49 L 16 128/57 97 02/06/20 16:40 51 L 02/06/20 16:34 52 L 02/06/20 16:30 98.3 F 53 L 16 92 L 02/06/20 16:28 53 L 16 140/58 95 02/06/20 16:00 98.3 F 49 L 16 100 02/06/20 15:45 49 L 16 100 02/06/20 15:30 49 L 16 100 02/06/20 15:15 49 L 17 100 02/06/20 15:00 49 L 17 100 02/06/20 14:45 49 L 19 100 02/06/20 14:30 49 L 17 100 02/06/20 14:15 49 L 16 100 02/06/20 14:00 49 L 17 100 02/06/20 13:45 49 L 16 100 02/06/20 13:30 49 L 17 100 02/06/20 13:15 49 L 17 100 02/06/20 13:00 49 L 17 100 02/06/20 12:45 49 L 17 100 02/06/20 12:30 49 L 18 100 02/06/20 12:19 49 L 02/06/20 12:15 49 L 16 100 02/06/20 12:10 49 L 02/06/20 12:00 98.3 F 49 L 16 100 02/06/20 11:45 49 L 17 100 02/06/20 11:30 49 L 16 100 02/06/20 11:15 49 L 18 100 02/06/20 11:00 49 L 16 100 02/06/20 10:45 49 L 16 100 02/06/20 10:30 49 L 16 99 02/06/20 10:15 49 L 18 100 02/06/20 10:00 49 L 18 100 02/06/20 09:45 49 L 17 100 02/06/20 09:30 49 L 16 100 02/06/20 09:15 49 L 16 100 02/06/20 09:00 49 L 18 123/4 100 02/06/20 08:45 50 L 16 100 02/06/20 08:30 49 L 18 100 02/06/20 08:15 49 L 17 100 02/06/20 08:11 49 L 02/06/20 08:00 98.4 F 49 L 16 100 02/06/20 07:54 49 L 02/06/20 07:45 49 L 16 100 02/06/20 07:30 49 L 18 100 02/06/20 07:15 49 L 19 100 02/06/20 07:00 49 L 18 100 02/06/20 06:45 50 L 20 100 02/06/20 06:30 49 L 18 99 02/06/20 06:15 50 L 8 L 100 02/06/20 06:00 50 L 17 95 02/06/20 05:45 49 L 20 123/49 99 02/06/20 05:30 49 L 19 123/49 99 02/06/20 05:15 49 L 20 96 02/06/20 05:00 49 L 18 99 02/06/20 04:45 49 L 20 99 02/06/20 04:30 49 L 22 100 02/06/20 04:15 49 L 19 100 02/06/20 04:00 98.1 F 49 L 19 99 02/06/20 03:45 49 L 19 100 02/06/20 03:30 49 L 21 100 02/06/20 03:15 49 L 22 100 02/06/20 03:00 49 L 19 99 02/06/20 02:45 49 L 22 100 02/06/20 02:30 49 L 21 148/53 100 02/06/20 02:15 49 L 21 148/53 100 02/06/20 02:00 56 L 19 100 02/06/20 01:45 49 L 13 99 02/06/20 01:30 49 L 19 99 02/06/20 01:15 49 L 21 100 02/06/20 01:00 49 L 22 100 02/06/20 00:45 49 L 25 H 100 02/06/20 00:30 49 L 21 99 02/06/20 00:15 49 L 22 100 02/06/20 00:00 99.2 F 49 L 20 99 02/05/20 23:45 49 L 22 99 02/05/20 23:30 49 L 21 99 02/05/20 23:15 49 L 22 100 02/05/20 23:00 49 L 17 100 02/05/20 22:45 49 L 20 100 02/05/20 22:30 49 L 20 100 02/05/20 22:15 49 L 23 100 02/05/20 22:00 49 L 21 100 02/05/20 21:45 49 L 20 100 02/05/20 21:30 49 L 22 100 02/05/20 21:15 49 L 22 100 02/05/20 21:00 50 L 25 H 133/48 100 02/05/20 20:45 69 9 L 133/48 98 02/05/20 20:30 49 L 20 133/48 100 02/05/20 20:15 49 L 20 100 02/05/20 20:00 98.7 F 49 L 18 128/52 100 02/05/20 19:54 49 L 02/05/20 19:45 49 L 24 100 02/05/20 19:44 49 L 02/05/20 19:30 49 L 24 100 Intake and Output 02/06/20 02/06/20 02/06/20 06:59 14:59 22:59 Intake Total 480.441 264.867 139.224 Output Total 60 390 35 Balance 420.441 -125.133 104.224 Intake: IV 160 240 100 Sodium Chloride 0.9% 1, 160 140 100 000 ml @ 20 mls/hr IV . Q24H ENRIQUE Rx#:[id number] metroNIDAZOLE-NS PMX 500 100 mg In Saline 1 100ml.bag @ 100 mls/hr IVPB Q8H ENRIQUE Rx#:[id number] Intake, IV Titration 60.441 24.867 39.224 Amount Norepinephrine 32 mg In 60.441 24.867 39.224 Sodium Chloride 0.9% 218 ml @ 0.3 MCG/KG/MIN 13. 458 mls/hr IV .[id number] ENRIQUE Rx#:[id number] Tube Feeding 200 Other 60 Output: Gastric Drainage 350 Urine 60 40 35 Other: Voiding Method Indwelling Catheter Indwelling Catheter Indwelling Catheter Weight 101.6 kg 101.6 kg ABP, PAP, CO, CI - Last 8 Hours Arterial Blood Pressure 134/39 Arterial Blood Pressure 132/40 Arterial Blood Pressure 131/39 Arterial Blood Pressure 139/42 Arterial Blood Pressure 140/42 Arterial Blood Pressure 139/42 Arterial Blood Pressure 136/41 Arterial Blood Pressure 135/41 Arterial Blood Pressure 133/41 Arterial Blood Pressure 145/44 Arterial Blood Pressure 149/46 Arterial Blood Pressure 139/43 Arterial Blood Pressure 141/44 Arterial Blood Pressure 145/47 Arterial Blood Pressure 143/45 Arterial Blood Pressure 141/45 Arterial Blood Pressure 141/46 Arterial Blood Pressure 142/46 Arterial Blood Pressure 137/46 Arterial Blood Pressure 136/45 Arterial Blood Pressure 127/43 Arterial Blood Pressure 119/41 Arterial Blood Pressure 118/40 Arterial Blood Pressure 116/39 Arterial Blood Pressure 117/41 Arterial Blood Pressure 120/41 Arterial Blood Pressure 127/45 Arterial Blood Pressure 129/44 Arterial Blood Pressure 132/45 Arterial Blood Pressure 131/44 Patient examined at bedside on ventilator. G S3. No spontaneous openingmovements minimal gag reflex. Pupils are 2 mm fixed and nonreactive Gag is very poor both with suction and stimulation to the palate. Corneal blink reflexes are absent. There is no withdrawal to painful stimulation Plantar responses are mute bilaterally. Reflexes are absent throughout. EEG obtained shows generalized slowing of the background consistent with generalized cerebral dysfunction. There were frequently areas of periodic lateralized epileptiform discharges lateralizing to the right hemisphere. Results EEG completed showing generalized diffuse cerebral dysfunction with slow background. No clear wake sleep background. The EEG however was reactive to photic stimulation. Periodic lateralized epileptiform discharges persisted throughout the study mostly lateralized to the right hemisphere maximum negativity in the right frontal lobe. - Laboratory Findings CBC and BMP: 02/06/20 04:10 02/06/20 12:48 Abnormal Lab Findings: Abnormal Labs 01/29/20 01/29/20 01/29/20 14:50 14:50 14:50 WBC RBC 3.30 L Hgb 10.0 L Hct 31.2 L MCHC RDW 15.8 H Plt Count 117 L Neutrophils # Neutrophils # (Manual) Lymphocytes # 0.6 L Lymphocytes # (Manual) Monocytes # Monocytes # (Manual) Eosinophils # PT 61.2 H INR 6.0 H* APTT 48.1 H D-Dimer ABG pH ABG pO2 ABG HCO3 ABG Total CO2 ABG O2 Saturation Sodium Carbon Dioxide BUN 58 H Creatinine 2.77 H Glucose 161 H POC Glucose (mg/dL) Plasma Lactic Acid Noel Calcium Iron % Saturation AST Troponin I Total Protein 6.0 L Albumin 3.2 L Urine Protein Urine Blood Ur Leukocyte Esterase Urine RBC Urine WBC Urine WBC Clumps Urine Bacteria Hyaline Casts Urine Mucus 01/29/20 01/29/20 01/30/20 14:50 20:09 05:29 WBC RBC 3.12 L Hgb 9.0 L Hct 29.9 L MCHC 30.3 L RDW 15.6 H Plt Count 110 L Neutrophils # Neutrophils # (Manual) Lymphocytes # Lymphocytes # (Manual) Monocytes # Monocytes # (Manual) Eosinophils # PT INR APTT D-Dimer 0.95 H ABG pH ABG pO2 ABG HCO3 ABG Total CO2 ABG O2 Saturation Sodium Carbon Dioxide BUN Creatinine Glucose POC Glucose (mg/dL) 194 H Plasma Lactic Acid Noel Calcium Iron % Saturation AST Troponin I Total Protein Albumin Urine Protein Urine Blood Ur Leukocyte Esterase Urine RBC Urine WBC Urine WBC Clumps Urine Bacteria Hyaline Casts Urine Mucus 01/30/20 01/30/20 01/30/20 05:29 05:29 06:17 WBC RBC Hgb Hct MCHC RDW Plt Count Neutrophils # Neutrophils # (Manual) Lymphocytes # Lymphocytes # (Manual) Monocytes # Monocytes # (Manual) Eosinophils # PT INR APTT D-Dimer ABG pH ABG pO2 ABG HCO3 ABG Total CO2 ABG O2 Saturation Sodium Carbon Dioxide BUN 60 H Creatinine 2.98 H Glucose 141 H POC Glucose (mg/dL) 177 H Plasma Lactic Acid Noel Calcium Iron 10 L % Saturation 4.29 L AST Troponin I Total Protein Albumin Urine Protein Urine Blood Ur Leukocyte Esterase Urine RBC Urine WBC Urine WBC Clumps Urine Bacteria Hyaline Casts Urine Mucus 01/30/20 01/30/20 01/31/20 11:33 16:22 05:10 WBC RBC Hgb Hct MCHC RDW Plt Count Neutrophils # Neutrophils # (Manual) Lymphocytes # Lymphocytes # (Manual) Monocytes # Monocytes # (Manual) Eosinophils # PT INR APTT D-Dimer ABG pH ABG pO2 ABG HCO3 ABG Total CO2 ABG O2 Saturation Sodium Carbon Dioxide BUN 66 H Creatinine 3.59 H Glucose POC Glucose (mg/dL) 110 H Plasma Lactic Acid Noel Calcium Iron % Saturation AST Troponin I Total Protein Albumin Urine Protein 1+ H Urine Blood Moderate H Ur Leukocyte Esterase Large H Urine RBC >182 H Urine WBC 176 H Urine WBC Clumps Many H Urine Bacteria Rare H Hyaline Casts 75 H Urine Mucus Rare H 01/31/20 01/31/20 01/31/20 05:10 05:57 11:14 WBC RBC Hgb Hct MCHC RDW Plt Count Neutrophils # Neutrophils # (Manual) Lymphocytes # Lymphocytes # (Manual) Monocytes # Monocytes # (Manual) Eosinophils # PT 37.1 H INR 3.8 H APTT D-Dimer ABG pH ABG pO2 ABG HCO3 ABG Total CO2 ABG O2 Saturation Sodium Carbon Dioxide BUN Creatinine Glucose POC Glucose (mg/dL) 119 H 178 H Plasma Lactic Acid Noel Calcium Iron % Saturation AST Troponin I Total Protein Albumin Urine Protein Urine Blood Ur Leukocyte Esterase Urine RBC Urine WBC Urine WBC Clumps Urine Bacteria Hyaline Casts Urine Mucus 01/31/20 01/31/20 01/31/20 16:12 20:34 20:49 WBC RBC Hgb Hct MCHC RDW Plt Count Neutrophils # Neutrophils # (Manual) Lymphocytes # Lymphocytes # (Manual) Monocytes # Monocytes # (Manual) Eosinophils # PT INR APTT D-Dimer ABG pH ABG pO2 ABG HCO3 ABG Total CO2 ABG O2 Saturation Sodium Carbon Dioxide BUN Creatinine Glucose POC Glucose (mg/dL) 107 H 66 L 62 L Plasma Lactic Acid Noel Calcium Iron % Saturation AST Troponin I Total Protein Albumin Urine Protein Urine Blood Ur Leukocyte Esterase Urine RBC Urine WBC Urine WBC Clumps Urine Bacteria Hyaline Casts Urine Mucus 01/31/20 02/01/20 02/01/20 21:05 01:29 02:13 WBC RBC Hgb Hct MCHC RDW Plt Count Neutrophils # Neutrophils # (Manual) Lymphocytes # Lymphocytes # (Manual) Monocytes # Monocytes # (Manual) Eosinophils # PT INR APTT D-Dimer ABG pH ABG pO2 ABG HCO3 ABG Total CO2 ABG O2 Saturation Sodium Carbon Dioxide BUN Creatinine Glucose POC Glucose (mg/dL) 67 L 72 L 111 H Plasma Lactic Acid Noel Calcium Iron % Saturation AST Troponin I Total Protein Albumin Urine Protein Urine Blood Ur Leukocyte Esterase Urine RBC Urine WBC Urine WBC Clumps Urine Bacteria Hyaline Casts Urine Mucus 02/01/20 02/01/20 02/01/20 02:22 08:13 11:24 WBC RBC Hgb Hct MCHC RDW Plt Count Neutrophils # Neutrophils # (Manual) Lymphocytes # Lymphocytes # (Manual) Monocytes # Monocytes # (Manual) Eosinophils # PT INR APTT D-Dimer ABG pH ABG pO2 ABG HCO3 ABG Total CO2 ABG O2 Saturation Sodium Carbon Dioxide BUN 72 H Creatinine 3.67 H Glucose POC Glucose (mg/dL) 126 H 123 H Plasma Lactic Acid Noel Calcium Iron % Saturation AST Troponin I Total Protein Albumin Urine Protein Urine Blood Ur Leukocyte Esterase Urine RBC Urine WBC Urine WBC Clumps Urine Bacteria Hyaline Casts Urine Mucus 02/01/20 02/01/20 02/01/20 16:38 19:57 22:17 WBC RBC Hgb Hct MCHC RDW Plt Count Neutrophils # Neutrophils # (Manual) Lymphocytes # Lymphocytes # (Manual) Monocytes # Monocytes # (Manual) Eosinophils # PT INR APTT D-Dimer ABG pH ABG pO2 ABG HCO3 ABG Total CO2 ABG O2 Saturation Sodium Carbon Dioxide BUN Creatinine Glucose POC Glucose (mg/dL) 114 H 138 H 146 H Plasma Lactic Acid Noel Calcium Iron % Saturation AST Troponin I Total Protein Albumin Urine Protein Urine Blood Ur Leukocyte Esterase Urine RBC Urine WBC Urine WBC Clumps Urine Bacteria Hyaline Casts Urine Mucus 02/01/20 02/01/20 02/01/20 22:36 22:36 22:36 WBC RBC 3.32 L Hgb 9.5 L Hct 31.4 L MCHC 30.4 L RDW 15.8 H Plt Count Neutrophils # 8.6 H Neutrophils # (Manual) Lymphocytes # 0.5 L Lymphocytes # (Manual) Monocytes # Monocytes # (Manual) Eosinophils # PT 25.0 H INR 2.6 H APTT D-Dimer ABG pH ABG pO2 ABG HCO3 ABG Total CO2 ABG O2 Saturation Sodium Carbon Dioxide BUN 78 H Creatinine 3.91 H Glucose 129 H POC Glucose (mg/dL) Plasma Lactic Acid Noel Calcium Iron % Saturation AST Troponin I Total Protein 6.1 L Albumin 3.2 L Urine Protein Urine Blood Ur Leukocyte Esterase Urine RBC Urine WBC Urine WBC Clumps Urine Bacteria Hyaline Casts Urine Mucus 02/01/20 02/02/20 02/02/20 22:36 05:42 06:08 WBC RBC Hgb Hct MCHC RDW Plt Count Neutrophils # Neutrophils # (Manual) Lymphocytes # Lymphocytes # (Manual) Monocytes # Monocytes # (Manual) Eosinophils # PT INR APTT D-Dimer ABG pH ABG pO2 261 H ABG HCO3 ABG Total CO2 26 H ABG O2 Saturation 99.9 H Sodium Carbon Dioxide BUN 83 H Creatinine 3.84 H Glucose 135 H POC Glucose (mg/dL) 157 H Plasma Lactic Acid Noel Calcium 8.3 L Iron % Saturation AST Troponin I Total Protein 6.0 L Albumin 3.1 L Urine Protein Urine Blood Ur Leukocyte Esterase Urine RBC Urine WBC Urine WBC Clumps Urine Bacteria Hyaline Casts Urine Mucus 02/02/20 02/02/20 02/02/20 06:08 10:04 12:32 WBC 15.3 H RBC 3.17 L Hgb 9.8 L Hct 30.2 L MCHC RDW 15.7 H Plt Count Neutrophils # 10.8 H Neutrophils # (Manual) Lymphocytes # Lymphocytes # (Manual) Monocytes # 2.6 H Monocytes # (Manual) Eosinophils # PT 26.2 H INR 2.7 H APTT D-Dimer ABG pH ABG pO2 ABG HCO3 ABG Total CO2 ABG O2 Saturation Sodium Carbon Dioxide BUN Creatinine Glucose POC Glucose (mg/dL) 139 H Plasma Lactic Acid Noel Calcium Iron % Saturation AST Troponin I Total Protein Albumin Urine Protein Urine Blood Ur Leukocyte Esterase Urine RBC Urine WBC Urine WBC Clumps Urine Bacteria Hyaline Casts Urine Mucus 02/02/20 02/02/20 02/02/20 18:46 20:44 22:21 WBC RBC Hgb Hct MCHC RDW Plt Count Neutrophils # Neutrophils # (Manual) Lymphocytes # Lymphocytes # (Manual) Monocytes # Monocytes # (Manual) Eosinophils # PT INR APTT D-Dimer ABG pH ABG pO2 ABG HCO3 ABG Total CO2 ABG O2 Saturation Sodium Carbon Dioxide BUN Creatinine Glucose POC Glucose (mg/dL) 132 H 137 H 161 H Plasma Lactic Acid Noel Calcium Iron % Saturation AST Troponin I Total Protein Albumin Urine Protein Urine Blood Ur Leukocyte Esterase Urine RBC Urine WBC Urine WBC Clumps Urine Bacteria Hyaline Casts Urine Mucus 02/02/20 02/02/20 02/02/20 22:25 22:25 22:30 WBC 12.9 H RBC 3.45 L Hgb 10.0 L Hct 33.6 L MCHC 29.7 L RDW 16.0 H Plt Count Neutrophils # 10.3 H Neutrophils # (Manual) Lymphocytes # Lymphocytes # (Manual) Monocytes # Monocytes # (Manual) Eosinophils # PT INR APTT D-Dimer ABG pH ABG pO2 ABG HCO3 ABG Total CO2 ABG O2 Saturation Sodium Carbon Dioxide 20 L BUN 85 H Creatinine 4.14 H Glucose 137 H POC Glucose (mg/dL) Plasma Lactic Acid Noel 2.8 H* Calcium Iron % Saturation AST Troponin I Total Protein 6.1 L Albumin 3.2 L Urine Protein Urine Blood Ur Leukocyte Esterase Urine RBC Urine WBC Urine WBC Clumps Urine Bacteria Hyaline Casts Urine Mucus 02/02/20 02/03/20 02/03/20 22:48 02:36 05:00 WBC RBC Hgb Hct MCHC RDW Plt Count Neutrophils # Neutrophils # (Manual) Lymphocytes # Lymphocytes # (Manual) Monocytes # Monocytes # (Manual) Eosinophils # PT INR APTT D-Dimer ABG pH ABG pO2 82 L ABG HCO3 ABG Total CO2 ABG O2 Saturation Sodium Carbon Dioxide BUN 86 H Creatinine 4.60 H Glucose 131 H POC Glucose (mg/dL) Plasma Lactic Acid Noel 2.4 H* Calcium 7.9 L Iron % Saturation AST Troponin I Total Protein Albumin Urine Protein Urine Blood Ur Leukocyte Esterase Urine RBC Urine WBC Urine WBC Clumps Urine Bacteria Hyaline Casts Urine Mucus 02/03/20 02/03/20 02/03/20 05:00 05:00 05:26 WBC 16.1 H RBC 3.34 L Hgb 9.8 L Hct 32.0 L MCHC 30.6 L RDW 15.9 H Plt Count Neutrophils # 13.7 H Neutrophils # (Manual) Lymphocytes # 0.9 L Lymphocytes # (Manual) Monocytes # Monocytes # (Manual) Eosinophils # PT INR APTT D-Dimer ABG pH ABG pO2 153 H ABG HCO3 ABG Total CO2 ABG O2 Saturation 99.4 H Sodium Carbon Dioxide BUN Creatinine Glucose POC Glucose (mg/dL) Plasma Lactic Acid Noel Calcium Iron % Saturation AST Troponin I 0.864 H* Total Protein Albumin Urine Protein Urine Blood Ur Leukocyte Esterase Urine RBC Urine WBC Urine WBC Clumps Urine Bacteria Hyaline Casts Urine Mucus 02/03/20 02/03/20 02/03/20 06:15 06:47 07:16 WBC RBC Hgb Hct MCHC RDW Plt Count Neutrophils # Neutrophils # (Manual) Lymphocytes # Lymphocytes # (Manual) Monocytes # Monocytes # (Manual) Eosinophils # PT 28.2 H INR 2.9 H APTT 33.3 H D-Dimer ABG pH ABG pO2 ABG HCO3 ABG Total CO2 ABG O2 Saturation Sodium Carbon Dioxide BUN Creatinine Glucose POC Glucose (mg/dL) 121 H Plasma Lactic Acid Noel 2.4 H* Calcium Iron % Saturation AST Troponin I Total Protein Albumin Urine Protein Urine Blood Ur Leukocyte Esterase Urine RBC Urine WBC Urine WBC Clumps Urine Bacteria Hyaline Casts Urine Mucus 02/03/20 02/03/20 02/03/20 11:04 16:48 19:36 WBC RBC Hgb Hct MCHC RDW Plt Count Neutrophils # Neutrophils # (Manual) Lymphocytes # Lymphocytes # (Manual) Monocytes # Monocytes # (Manual) Eosinophils # PT INR APTT D-Dimer ABG pH ABG pO2 ABG HCO3 ABG Total CO2 ABG O2 Saturation Sodium Carbon Dioxide BUN Creatinine Glucose POC Glucose (mg/dL) 115 H 110 H 103 H Plasma Lactic Acid Noel Calcium Iron % Saturation AST Troponin I Total Protein Albumin Urine Protein Urine Blood Ur Leukocyte Esterase Urine RBC Urine WBC Urine WBC Clumps Urine Bacteria Hyaline Casts Urine Mucus 02/04/20 02/04/20 02/04/20 00:00 04:35 04:35 WBC 13.2 H RBC 3.40 L Hgb 9.6 L Hct 31.8 L MCHC 30.3 L RDW 16.7 H Plt Count Neutrophils # 11.1 H Neutrophils # (Manual) Lymphocytes # 0.6 L Lymphocytes # (Manual) Monocytes # Monocytes # (Manual) Eosinophils # 0.8 H PT INR APTT D-Dimer ABG pH ABG pO2 ABG HCO3 ABG Total CO2 ABG O2 Saturation Sodium Carbon Dioxide BUN 69 H Creatinine 4.07 H Glucose POC Glucose (mg/dL) 103 H Plasma Lactic Acid Noel Calcium 7.7 L Iron % Saturation AST Troponin I Total Protein Albumin Urine Protein Urine Blood Ur Leukocyte Esterase Urine RBC Urine WBC Urine WBC Clumps Urine Bacteria Hyaline Casts Urine Mucus 02/04/20 02/04/20 02/04/20 05:28 09:33 09:55 WBC RBC Hgb Hct MCHC RDW Plt Count Neutrophils # Neutrophils # (Manual) Lymphocytes # Lymphocytes # (Manual) Monocytes # Monocytes # (Manual) Eosinophils # PT INR APTT D-Dimer ABG pH ABG pO2 142 H ABG HCO3 ABG Total CO2 25 H ABG O2 Saturation 99.3 H Sodium Carbon Dioxide BUN Creatinine Glucose POC Glucose (mg/dL) 68 L 129 H Plasma Lactic Acid Noel Calcium Iron % Saturation AST Troponin I Total Protein Albumin Urine Protein Urine Blood Ur Leukocyte Esterase Urine RBC Urine WBC Urine WBC Clumps Urine Bacteria Hyaline Casts Urine Mucus 02/04/20 02/04/20 02/05/20 15:57 19:54 00:01 WBC RBC Hgb Hct MCHC RDW Plt Count Neutrophils # Neutrophils # (Manual) Lymphocytes # Lymphocytes # (Manual) Monocytes # Monocytes # (Manual) Eosinophils # PT INR APTT D-Dimer ABG pH ABG pO2 ABG HCO3 ABG Total CO2 ABG O2 Saturation Sodium Carbon Dioxide BUN Creatinine Glucose POC Glucose (mg/dL) 116 H 100 H 152 H Plasma Lactic Acid Noel Calcium Iron % Saturation AST Troponin I Total Protein Albumin Urine Protein Urine Blood Ur Leukocyte Esterase Urine RBC Urine WBC Urine WBC Clumps Urine Bacteria Hyaline Casts Urine Mucus 02/05/20 02/05/20 02/05/20 04:00 04:00 04:06 WBC 21.6 H RBC 3.85 L Hgb 10.8 L Hct 36.3 L MCHC 29.8 L RDW 16.9 H Plt Count Neutrophils # Neutrophils # (Manual) 18.50 H Lymphocytes # Lymphocytes # (Manual) 0.65 L Monocytes # Monocytes # (Manual) 1.94 H Eosinophils # PT INR APTT D-Dimer ABG pH ABG pO2 ABG HCO3 ABG Total CO2 ABG O2 Saturation Sodium 135 L Carbon Dioxide 19 L BUN 77 H Creatinine 4.86 H Glucose 181 H POC Glucose (mg/dL) 173 H Plasma Lactic Acid Noel Calcium 7.3 L Iron % Saturation AST 132 H Troponin I Total Protein 5.1 L Albumin 2.4 L Urine Protein Urine Blood Ur Leukocyte Esterase Urine RBC Urine WBC Urine WBC Clumps Urine Bacteria Hyaline Casts Urine Mucus 02/05/20 02/05/20 02/05/20 05:31 07:36 08:09 WBC RBC Hgb Hct MCHC RDW Plt Count Neutrophils # Neutrophils # (Manual) Lymphocytes # Lymphocytes # (Manual) Monocytes # Monocytes # (Manual) Eosinophils # PT 36.9 H INR 3.8 H APTT D-Dimer ABG pH 7.34 L ABG pO2 ABG HCO3 20 L ABG Total CO2 ABG O2 Saturation 98.5 H Sodium Carbon Dioxide BUN Creatinine Glucose POC Glucose (mg/dL) 166 H Plasma Lactic Acid Noel Calcium Iron % Saturation AST Troponin I Total Protein Albumin Urine Protein Urine Blood Ur Leukocyte Esterase Urine RBC Urine WBC Urine WBC Clumps Urine Bacteria Hyaline Casts Urine Mucus 02/05/20 02/05/20 02/05/20 11:54 16:57 20:14 WBC RBC Hgb Hct MCHC RDW Plt Count Neutrophils # Neutrophils # (Manual) Lymphocytes # Lymphocytes # (Manual) Monocytes # Monocytes # (Manual) Eosinophils # PT INR APTT D-Dimer ABG pH ABG pO2 ABG HCO3 ABG Total CO2 ABG O2 Saturation Sodium Carbon Dioxide BUN Creatinine Glucose POC Glucose (mg/dL) 211 H 205 H 160 H Plasma Lactic Acid Noel Calcium Iron % Saturation AST Troponin I Total Protein Albumin Urine Protein Urine Blood Ur Leukocyte Esterase Urine RBC Urine WBC Urine WBC Clumps Urine Bacteria Hyaline Casts Urine Mucus 02/05/20 02/06/20 02/06/20 23:55 04:10 04:10 WBC RBC Hgb Hct MCHC RDW Plt Count Neutrophils # Neutrophils # (Manual) Lymphocytes # Lymphocytes # (Manual) Monocytes # Monocytes # (Manual) Eosinophils # PT 39.9 H INR 4.0 H APTT D-Dimer ABG pH ABG pO2 ABG HCO3 ABG Total CO2 ABG O2 Saturation Sodium 136 L Carbon Dioxide 17 L BUN 89 H Creatinine 5.57 H Glucose 180 H POC Glucose (mg/dL) 187 H Plasma Lactic Acid Noel Calcium 7.4 L Iron % Saturation AST 69 H Troponin I Total Protein 4.9 L Albumin 2.3 L Urine Protein Urine Blood Ur Leukocyte Esterase Urine RBC Urine WBC Urine WBC Clumps Urine Bacteria Hyaline Casts Urine Mucus 02/06/20 02/06/20 02/06/20 04:10 04:17 05:00 WBC 17.4 H RBC 3.65 L Hgb 10.5 L Hct 34.1 L MCHC 30.8 L RDW 17.0 H Plt Count Neutrophils # 15.3 H Neutrophils # (Manual) Lymphocytes # 0.8 L Lymphocytes # (Manual) Monocytes # Monocytes # (Manual) Eosinophils # PT INR APTT D-Dimer ABG pH 7.32 L ABG pO2 ABG HCO3 18 L ABG Total CO2 ABG O2 Saturation 97.8 H Sodium Carbon Dioxide BUN Creatinine Glucose POC Glucose (mg/dL) 176 H Plasma Lactic Acid Noel Calcium Iron % Saturation AST Troponin I Total Protein Albumin Urine Protein Urine Blood Ur Leukocyte Esterase Urine RBC Urine WBC Urine WBC Clumps Urine Bacteria Hyaline Casts Urine Mucus 02/06/20 02/06/20 02/06/20 08:13 11:33 12:48 WBC RBC Hgb Hct MCHC RDW Plt Count Neutrophils # Neutrophils # (Manual) Lymphocytes # Lymphocytes # (Manual) Monocytes # Monocytes # (Manual) Eosinophils # PT INR APTT D-Dimer ABG pH ABG pO2 ABG HCO3 ABG Total CO2 ABG O2 Saturation Sodium Carbon Dioxide 18 L BUN 92 H Creatinine 5.87 H Glucose 151 H POC Glucose (mg/dL) 158 H 169 H Plasma Lactic Acid Noel Calcium 7.3 L Iron % Saturation AST Troponin I Total Protein 4.9 L Albumin 2.2 L Urine Protein Urine Blood Ur Leukocyte Esterase Urine RBC Urine WBC Urine WBC Clumps Urine Bacteria Hyaline Casts Urine Mucus 02/06/20 16:41 WBC RBC Hgb Hct MCHC RDW Plt Count Neutrophils # Neutrophils # (Manual) Lymphocytes # Lymphocytes # (Manual) Monocytes # Monocytes # (Manual) Eosinophils # PT INR APTT D-Dimer ABG pH ABG pO2 ABG HCO3 ABG Total CO2 ABG O2 Saturation Sodium Carbon Dioxide BUN Creatinine Glucose POC Glucose (mg/dL) 146 H Plasma Lactic Acid Noel Calcium Iron % Saturation AST Troponin I Total Protein Albumin Urine Protein Urine Blood Ur Leukocyte Esterase Urine RBC Urine WBC Urine WBC Clumps Urine Bacteria Hyaline Casts Urine Mucus Assessment and Plan Assessment: This is an 79-year-old gentleman who has significant stroke risk factors including diabetes hypertension. He has cardiopulmonary disease involving COPD and congestive heart failure, atrial fib with pacemaker. 13 days prior to admission he was admitted for increasing dyspnea. On this admission was found that he does have per progressive congestive heart failure. On day 4 he had a cardiac arrest in the evening requiring defibrillation and now in sepsis with shock. Due to his unresponsiveness on the ventilator despite being off sedation there is concern for anoxic brain injury/Neurology re-consulted. On examination the patient has no purposeful movement no spontaneous eye opening no response to painful stimulation. The gag reflex is very poor. The EEG does however does not show evidence of electrical brain but rather generalized diffuse cerebral dysfunction with periodic lateralized epileptiform discharges primarily lateralized to the right hemisphere. The current computed tomography scan does not show evidence of any ischemic or hemorrhagic infarct. I had a discussion with his about long-term prognosis. The fully understands this patient's poor prognosis due to the significant comorbidities he had prior to admission. The agrees with the plan to follow-up on an EEG in the morning to see if there is any progression and follow-up on another CAT scan by the end of the week. However she is aware that this patient most likely will continue to decline. Seriously considering supportive care at some point in time. Summary: 1. Initial admission for increasing dyspnea/ ams, 2NDARY TO metabolic encephalopathy 2. Cardiac arrest on hospital day 4. Severe sepsis with shock. 3. Patient not responding to stimulation off sedation requires continued intubation 4. EEG shows generalized diffuse cerebral dysfunction with periodic lateralized epileptiform discharges over the right hemisphere 5. End-stage renal disease. Patient unable to tolerate dialysis at this time. 6. Severe sepsis with shock 7. Stroke risk factors: Diabetes. Hypertension. Cardiovascular disease. Plan: 1. Due to abnormal blood flow activity on EEG and patient underlying renal dysfunction, start valproic acid IV 250 mg every 8 hours. We'll check level this coming Wednesday morning trough level. 2. Follow-up EEG tomorrow morning. 3. Meet with family daily to discuss long-term prognosis This patient's prognosis remains very poor. Further recommendations will be made as this case evolves. Thank you for allowing up to spin care of your patient. Lazara Arbaham M.D. Board certified in neurology and sleep medicine
[2020-02-06] MEDS: PIPERACILLIN-TAZOBACTAM 3.375 GM in SODIUM CHLORIDE 0.9% 100 ML IVPB SCH (20:00)
[2020-02-06] MEDS: MONTELUKAST 10 MG TAB PO SCH (20:00)
--- NOTE | 2020-02-06 20:39 | PN ---
PROGRESS NOTE DATE OF SERVICE: 02/06/2020 REASON FOR FOLLOWUP: Aspiration pneumonia. INTERVAL HISTORY: The patient is afebrile. The patient is currently intubated on the vent. He is hemodynamically stable. FiO2 is currently at 40%. No other changes being reported. PHYSICAL EXAMINATION: Blood pressure 113/48 with a pulse of 49, temperature 98. He is 99% on 40% FiO2. General description is an elderly male intubated on the vent. RESPIRATORY SYSTEM: Unlabored breathing. Clear to auscultation anteriorly. HEART: S1, S2. Regular rate and rhythm. ABDOMEN: Soft. Mildly distended. No guarding. No rigidity. LABS: Hemoglobin is 10.5, white count 17.4, BUN of 92, creatinine 5.87. Sputum is corynebacterium. DIAGNOSTIC IMPRESSION AND PLAN: Patient with acute vent-dependent respiratory failure which is likely multifactorial in this patient who did have a component of possible aspiration pneumonia, covered with cefepime and Flagyl; to continue because of PENICILLIN ALLERGY. In view of worsening of his kidney function, vancomycin should be discontinued, as the patient's sputum did not show any resistant pathogen. Will adjust antibiotic to Zosyn only at this point and continue with supportive care. MMODL / IJN: [id number] /
[2020-02-06 23:04] LABS: Glucose,Whole Blood 121 mg/dL (75-99)
[2020-02-07 04:00] LABS: Glucose,Whole Blood 166 mg/dL (75-99)
[2020-02-07 04:11] LABS: Anisocytosis Slight; Basophils % (A) 0 %; Eosinophils # (A) 0.1 k/uL (0-0.7); Eosinophils % (A) 0 %; HGB 10.6 gm/dL (13.0-17.5); Hypochromasia Moderate; Lymphocytes # (A) 0.9 k/uL (1.0-4.8); Lymphocytes % (A) 5 %; MCH 29.2 pg (25.0-35.0); MCHC 31.2 g/dL (31.0-37.0); MCV 93.8 fL (80.0-100.0); Mean Platelet Volume 8.5; Monocytes # (A) 0.8 k/uL (0-1.0); Monocytes % (A) 4 %; Neutrophils # (A) 14.9 k/uL (1.3-7.7); Neutrophils % (A) 88 %; Platelet Count 245 k/uL (150-450); RBC 3.63 m/uL (4.30-5.90); WBC 16.9 k/uL (3.8-10.6)
[2020-02-07] MEDS: INSULIN ASPART (NovoLOG) 100 UNIT/ML VIAL SQ SCH ×5 (04:22→19:42)
[2020-02-07 04:25] LABS: INR 4.2 (<1.2); Prothrombin Time 41.6 sec (9.0-12.0)
[2020-02-07 04:50] LABS: ABG HCO3 17 mmol/L (21-25); ABG Oxygen Saturation 99.1 % (94-97); ABG PCO2 31 mmHg (35-45); ABG PH 7.34 (7.35-7.45); ABG PO2 131 mmHg (83-108); ABG TCO2 18 mmol/L (19-24)
[2020-02-07 05:17] LABS: Calcium 7.7 mg/dL (8.4-10.2); Potassium 5.4 mmol/L (3.5-5.1)
[2020-02-07] MEDS ORDERED: VANCOMYCIN 1,500 MG in SODIUM CHLORIDE 0.9% 250 ML IVPB ONE (06:00)
[2020-02-07] MEDS: METOCLOPRAMIDE 5 MG/ML 2 ML VIAL IVP SCH ×2 (06:07→16:01)
--- NOTE | 2020-02-07 07:25 | PN ---
PROGRESS NOTE DATE OF SERVICE: 02/06/2020 ICU NOTE Consultation by Neurology, Dr. Abraham, for inability to wake up off sedation was entertained. EEG in the prior week or 2 ago showed metabolic encephalopathy by Neurology. He still is not tolerant to dialysis. Has severe sepsis, right lower lobe pneumonia, systolic heart failure, renal failure, status post cardiovascular arrest. Chest x-ray shows CHF, cardiomegaly, bilateral pleural effusions. Remains on the ventilator. Ventilator settings reviewed. Pulse is 49, respiratory rate 16 to 20, blood pressure 110s to 120w over 50s, O2 of 99. CARDIOVASCULAR: S1, S2. LUNGS: Rales at the base. EEG shows generalized slowing of the background, generalized cerebral dysfunction. Labs are reviewed. BUN 92, creatinine 5.87. White count 17.4. He is on triple antibiotics persistent at this point for sepsis. Hemoglobin is 10.5. He had elevated INR, which is being followed. Coumadin is on hold. Notes reviewed. ABGs reviewed. ASSESSMENT: 1. Metabolic encephalopathy. 2. Status post cardiac arrest. 3. Severe septic shock. 4. End-stage renal disease. 5. Generalized cerebral dysfunction. 6. Diabetes mellitus. 7. Hypertension. 8. Cardiovascular disease. 9. Atrial fibrillation. This patient was given valproic acid for possible seizure disorder 250 q.8 hours. They are going to do a repeat EEG tomorrow morning. Prognosis guarded. Continue current treatment. MMODL / IJN: [id number] /
--- NOTE | 2020-02-07 07:27 | XR ---
EXAMINATION TYPE: XR chest 1V portable DATE OF EXAM: 02/07/2020 COMPARISON: 02/06/2020 HISTORY: Ventilatory dependent respiratory failure TECHNIQUE: Single frontal view of the chest is obtained. FINDINGS: Endotracheal tube terminates at the level of the aortic arch approximately 4.8 cm from the reva. This is similar to the prior. Enteric tube appears satisfactory extending off the distal fie ld-of-view. Dual lead left-sided cardiac device and enlarged cardiomediastinal silhouette are redemonstrated. A l ayering moderate right pleural effusion and slightly improved small left pleural effusion with opacif ication of the retrocardiac airspace are redemonstrated. Right internal jugular central venous cathet er terminates in the cavoatrial junction. IMPRESSION: Slightly improved small left pleural effusion and stable moderate right pleural effusion with bibasilar airspace disease, likely compressive atelectasis.
[2020-02-07] MEDS: IPRATROPIUM-ALBUTEROL 3 ML NEB INHALATION SCH ×4 (08:08→20:02)
[2020-02-07 08:42] LABS: Glucose,Whole Blood 164 mg/dL (75-99)
[2020-02-07] MEDS: CHLORHEXIDINE GLUCONATE 15 ML CUP MUCOUS MEM SCH ×2 (08:52→19:52)
[2020-02-07] MEDS: PIPERACILLIN-TAZOBACTAM 3.375 GM in SODIUM CHLORIDE 0.9% 100 ML IVPB SCH ×2 (08:53→19:52)
[2020-02-07] MEDS: METOLAZONE 5 MG TAB PO SCH ×2 (08:53→21:02)
[2020-02-07] MEDS: SENNOSIDES 8.6 MG TAB PO SCH ×2 (08:53→19:52)
[2020-02-07] MEDS: AMIODARONE 200 MG TAB PO SCH ×2 (08:53→19:51)
[2020-02-07] MEDS: CARVEDILOL 3.125 MG TAB PO SCH ×2 (08:53→19:43)
[2020-02-07] MEDS: VALPROATE SODIUM 250 MG in SODIUM CHLORIDE 0.9% 100 ML IVPB SCH ×2 (08:53→16:01)
[2020-02-07] MEDS: ISOSORBIDE MONONITRATE ER 15 MG TAB PO SCH (08:54)
[2020-02-07] MEDS: CARBIDOPA-LEVODOPA 10-100 MG 1 EACH TAB PO SCH ×2 (08:54→21:02)
[2020-02-07] MEDS: PANTOPRAZOLE 40 MG/10 ML VIAL IVP SCH ×2 (08:54→19:52)
[2020-02-07 12:01] LABS: Glucose,Whole Blood 150 mg/dL (75-99)
[2020-02-07] MEDS: SODIUM CHLORIDE 0.9% 1,000 ML IV SCH (12:08)
--- NOTE | 2020-02-07 13:00 | EEG ---
ELECTROENCEPHALOGRAM REPORT DATE OF SERVICE: 02/07/2020. HISTORY: This is an inpatient followup EEG performed on an 79-year-old gentleman, status post cardiac arrest. The initial EEG was performed on February 05 at which time significant epileptiform activity was observed along with severe suppression of the background. The patient was started on valproic acid IV. This is a followup EEG for comparison. TECHNICAL REPORT: This is an inpatient EEG performed on the [employer] EEG monitor with electrodes placed according to the International 10-20 system and a single EKG channel. Simultaneous video EEG monitoring was performed. This EEG was reviewed in both the longitudinal bipolar, average referential and transverse montages. Photic stimulation was performed. Hyperventilation was not performed. This patient remained on the ventilator throughout this study. The recording begins with again a generalized slow suppressed background. Background frequencies range between 4-5 Hz. Rare sharp waves again appear over the left frontal central head region. This can occur in both surface positive sharp waves as well as isolated rhythmic and semi rhythmic sharp waves with slow wave activity. Today, there are longer more prolonged periods of generalized suppression lasting up to 2-3 seconds. Surface positive sharp waves appear quite frequently over the bifrontal head region. When viewed in the referential montage, maximum negativity is lateralized to the left frontal head region at F3 electrode placement. There is extension however into the right frontal head region as well. IMPRESSION: This EEG is still considered severely abnormal due to the generalized slowing, no clear awake sleep architecture. The EEG has slightly improved in that there is less epileptiform activity as noted on the 02/05 study. CLINICAL CORRELATION: This EEG shows only a slight improvement with slightly less epileptiform activity observed. The EEG, however, is still very abnormal consistent with generalized diffuse cerebral dysfunction. Neuro imaging studies are recommended to rule out possible underlying structural mass lesion. Serial EEGs are recommended along with if clinically necessary. More prolonged long-term monitoring. MMODL / IJN: [id number] / [facility]ENTERGabrielle
--- NOTE | 2020-02-07 14:58 | P.PN ---
Subjective Progress Note Date: 02/07/20 (Critical care time 35 minutes) Principal diagnosis: Metabolic encephalopathy/altered mental status Status post cardiopulmonary arrest Intermittent runs of V. tach Aspiration pneumonia Acute hypoxic respiratory failure Acute on chronic renal failure Upper GI bleed/coffee-ground emesis Gastric distention Acute on chronic heart failure related to systolic heart failure Left foot with inflammation involving toes Bilateral pleural effusion Bilateral basal atelectasis COPD without exacerbation Severe leg uncontrolled diabetes with chronic complication with worsening Chronic atrial fibrillation Coagulopathy with elevated PT/INR, Coumadin is on hold Stage IV chronic renal failure 02/07/2020, patient seen eval reexamined during the rounds labs reviewed medic ations reviewed radiographic studies reviewed as well patient continues to get worsening of pleural effusion requiring emergent dialysis, currently patient is undergoing dialysis 1 L of fluid removed, patient is on 0.1 of levo fed drip which is up from yesterday, patient is off of sedation with propofol for almost 2 days, mental status still compromised patient not breaking up with the sternal rub likely metabolic encephalopathy neurology is also following, when setting includes assist control rate of 16 breathing about 20, tidal volume 600, PEEP is is 5, oxygen is down to 40%, oxygen and oxygenation air entry is better situational 100% patient remains afebrile rest or secretions are minimal, Keofeed is on hold patient has been on Reglan to figure will be started later on once dialysis is over, cardiovascular point patient remains on lidocaine drip, he is on amiodarone oral/through the NG-tube, white cell count is up to 16,000, creatinine is up to 6.43 predialysis 02/06/2020, patient seen eval examined during the rounds labs reviewed medications reviewed care plan discussed with the staff at length, propofol has been discontinued since last night patient remains unresponsive, neurology service has been following computed tomography scan of the head has been ordered, EKG repeat is pending, pulmonary-quiñones have patient has been doing better remains afebrile no significant respiratory secretions are seen FiO2 is down to 40% remains on PEEP of 10 and tidal volume of 500 rate of 16 breathing about 20-24, we can safely bring down the PEEP to 5 now, chest x-ray reviewed bilateral interstitial Petrin is present but now patient appears to be developing bilateral pleural effusion, dialysis is not performed today patient remains on 16 mics of levo fed, remains on broad-spectrum antibiotics, no significant arrhythmias noted, renal function continued to go up, patient to feed is on hold due to high residuals will start Reglan and reattempt in next 24 hours 02/05/2020, patient seen eval reexamined during her medication was resumed and continue breathing over the ventilator, current setting include assist control rate of 16 breathing about 20-24, tidal volume is 500, PEEP is 10, FiO2 is down to 40% now, heart rhythm remains in flutter with paced rhythm bradycardic about 45-50, patient remained on lidocaine drip, the amiodarone has been changed to oral, for hemodynamic support patient remains on 18 mics of levo fed, however it's down from 30 mics from this morning, less cyanosis in hand and toes noted, cultures have been negative, patient is tolerating tube feed well, chest x-ray shows stability, patient remains on broad-spectrum antibiotics for the diabetic foot ulcer and as well as a right-sided aspiration pneumonia on cephapirin Vanco and Flagyl, patient could not tolerate dialysis today due to fluctuation in blood pressure and rhythm, will reattempt tomorrow patient is definitely not ready for weaning critical care time 35 minutes 02/04/2020, patient seen and evaluated examined during the round remains on full ventilator support currently on assist control 16, tidal Volume of 500, 10 of PEEP and 50% oxygen, ABGs are stable, chest x-ray revealed stable, continue show dense right-sided infiltrate, but overall is stable, patient is intermittently regarding runs of V. tach, extra dose of amiodarone has been given, cardiovascular services following, patient is on 20 mics of levo fed, Keofeed is stable, patient has discoloration of fingers and toes, due to vasoconstriction related to the vasopressors, A-line and central line has been working labs re viewed, overall given the irritable nature of myocardium long-term prognosis is poor patient remains a full code was discussed cord issue with the family as per request of hospital staff, patient overall appears to not tolerate the CPR or shock in the event need arise, critical care time 35 minutes 02/03/2020, patient seen and evaluated examined during the rounds sedated with propofol drip about 30 mics patient is on full vent support, hypoxia Significantly worse after V. fib cardiac arrest have been earlier this morning, patient has been intubated, chest x-ray reviewed, patient is on amiodarone drip, status post ACLS protocol, revived, patient underwent a hemodialysis catheter this morning, currently dialysis is undergoing plan is to remove a liter, patient is on levo fed drip, urgently needed central line and A-line because of poor peripheral IV axis and risk of externalization of vasopressors, still have coffee-ground material coming but severity appears to improve gastric secretions light and now patient is on Armaan Keofeed can be started, patient has third spacing and tissue edema with ecchymosis and bruising upper extremity, also has diabetic foot ulcer, patient remains on broad-spectrum antibiotic with Cefepime, we'll add vancomycin with pharmacy to dose, vent setting currently include assist control with PEEP of 10 FiO2 is 60% oxygen saturations were dropping into high 80s FiO2 increase to 70%, critical care time spent 35 minutes 02/02/2020, patient seen eval examined during the rounds labs reviewed medications reviewed, patient remains on dobutamine drip off of dopamine drip he is on Lasix 50 mg an hour, patient due to gastric distention was the having coffee-ground and Mrs. however hemoglobin remained stable white cell count went up to 15,000, patient INR isn't therapeutic range now,, patient has been on proton pump inhibitor, a computed tomography scan of the abdominal and pelvis has been performed which has been reviewed no gastric outlet obstruction has been noted but stomach may be slightly distended due to air, arterial blood gas have been reviewed adequate ventilation and oxygenation is present x-ray however suggestive of the fluid overload with bilateral pleural effusion not much change, renal functions remains on the higher level, patient likely will need hemodialysis with volume removal, care plan discussed with the staff further recommendations pending plan of care as per clinical response of the patient 02/01/2020, patient seen eval examined during the rounds, he remains afebrile, hemodynamic status stable however the blood pressure continue be on the low side oxygen saturation is 98% on 2 L, patient remains on breathing treatments and broad-spectrum antibiotics, do vitamin have been on hold due to tachycardia however remains on Lasix drip, Coumadin remains on hold recommend to check on a daily basis and resume Coumadin once is okay from cardiovascular services 01/31/2020, patient seen eval examined during the rounds has history of oxygen breathing status stable, saturation is 90-93%, patient has been on dobutamine an d dopamine and Lasix strip, INR is coming down, BUN/creatinine slightly up This is a 79-year-old male who was seen evaluated examined on third floor, patient came into the hospital with progressive shortness of breath associated with last 1-2 weeks with increased swelling progressively from the 4 extremities to mid abdominal level in addition patient appears to be having diabetic foot infection with edema and redness in the toes as well in the left foot, patient is arousable but tired on 3 L oxygen, patient is to be started on Lasix drip along with dobutamine drip, patient has a history of COPD chronic systolic heart failure chronic atrial fibrillation diabetes along with chronic renal failure stage IV, currently patient is on WelChol dilators in the form of DuoNeb, ID service has been requested for antibiotics, his chest x-ray consistent with congestive heart failure fluid overload and pulmonary edema in addition to his interstitial edema and small bilateral pleural effusion Objective - Vital Signs Vital signs: Vital Signs Temp 97.5 F L 02/07/20 12:00 Pulse 50 L 02/07/20 12:10 Resp 16 02/07/20 12:00 BP 130/53 02/07/20 12:00 Pulse Ox 100 02/07/20 12:00 Intake & Output 02/06/20 02/07/20 02/07/20 18:59 06:59 18:59 Intake Total 374.460 310.977 277.903 Output Total 425 87 47 Balance -50.540 223.977 230.903 Weight 101.6 kg 106.7 kg Intake: IV 320 300 220 Piperacillin-Tazobactam 3 100 100 .375 gm In Sodium Chloride 0.9% 100 ml @ 25 mls/hr IVPB Q12HR EN[facility] Rx #:[id number] Sodium Chloride 0.9% 1, 220 200 120 000 ml @ 20 mls/hr IV . Q24H ENRI[facility] Rx#:[id number] metroNIDAZOLE-NS PMX 500 100 mg In Saline 1 100ml.bag @ 100 mls/hr IVPB Q8H ENRI[facility] Rx#:[id number] Intake, IV Titration 54.460 10.977 57.903 Amount Norepinephrine 32 mg In 54.460 10.977 57.903 Sodium Chloride 0.9% 218 ml @ 0.3 MCG/KG/MIN 13. 458 mls/hr IV .[id number] ENRIQUE Rx#:[id number] Output: Gastric Drainage 350 Urine 75 87 47 Other: Voiding Method Indwelling Catheter Indwelling Catheter Indwelling Catheter ABP, PAP, CO, CI - Last Documented Arterial Blood Pressure 112/43 - Exam Intubated sedated on full respiratory support diffuse ecchymosis edema and third spacing - Constitutional General appearance: disheveled, mild distress, morbidly obese, unresponsive to deep sternal rub - Neck Neck: Supple Carotids: bilateral: upstroke normal - Respiratory Respiratory: bilateral: diminished, dullness, rales bronchial breath sounds especially on the right side - Cardiovascular Rhythm: regular Heart sounds: normal: S1, S2 - Gastrointestinal General gastrointestinal: normal bowel sounds, soft - Musculoskeletal Musculoskeletal: generalized weakness, strength equal bilaterally - Psychiatric Psychiatric: Sedated on full ventilator support Edema involving the lower extremity up to the abdominal level, in addition left diabetic foot involvement of the toes - Labs CBC & Chem 7: 02/07/20 03:55 02/07/20 03:55 Labs: Abnormal Lab Results - Last 24 Hours (Table) 02/06/20 02/06/20 02/06/20 Range/Units 16:41 19:40 23:03 WBC (3.8-10.6) k/uL RBC (4.30-5.90) m/uL Hgb (13.0-17.5) gm/dL Hct (39.0-53.0) % RDW (11.5-15.5) % Neutrophils # (1.3-7.7) k/uL Lymphocytes # (1.0-4.8) k/uL PT (9.0-12.0) sec INR (<1.2) Sodium (137-145) mmol/L Potassium (3.5-5.1) mmol/L Carbon Dioxide (22-30) mmol/L BUN (9-20) mg/dL Creatinine (0.66-1.25) mg/dL Glucose (74-99) mg/dL POC Glucose (mg/dL) 146 H 120 H 121 H (75-99) mg/dL Calcium (8.4-10.2) mg/dL 02/07/20 02/07/20 02/07/20 Range/Units 03:55 03:55 03:55 WBC 16.9 H (3.8-10.6) k/uL RBC 3.63 L (4.30-5.90) m/uL Hgb 10.6 L (13.0-17.5) gm/dL Hct 34.0 L (39.0-53.0) % RDW 17.0 H (11.5-15.5) % Neutrophils # 14.9 H (1.3-7.7) k/uL Lymphocytes # 0.9 L (1.0-4.8) k/uL PT 41.6 H (9.0-12.0) sec INR 4.2 H (<1.2) Sodium 135 L (137-145) mmol/L Potassium 5.4 H (3.5-5.1) mmol/L Carbon Dioxide 16 L (22-30) mmol/L BUN 103 H* (9-20) mg/dL Creatinine 6.43 H (0.66-1.25) mg/dL Glucose 168 H (74-99) mg/dL POC Glucose (mg/dL) (75-99) mg/dL Calcium 7.7 L (8.4-10.2) mg/dL 02/07/20 02/07/20 02/07/20 Range/Units 03:57 08:41 11:59 WBC (3.8-10.6) k/uL RBC (4.30-5.90) m/uL Hgb (13.0-17.5) gm/dL Hct (39.0-53.0) % RDW (11.5-15.5) % Neutrophils # (1.3-7.7) k/uL Lymphocytes # (1.0-4.8) k/uL PT (9.0-12.0) sec INR (<1.2) Sodium (137-145) mmol/L Potassium (3.5-5.1) mmol/L Carbon Dioxide (22-30) mmol/L BUN (9-20) mg/dL Creatinine (0.66-1.25) mg/dL Glucose (74-99) mg/dL POC Glucose (mg/dL) 166 H 164 H 150 H (75-99) mg/dL Calcium (8.4-10.2) mg/dL Microbiology - Last 24 Hours (Table) 02/03/20 19:50 Gram Stain - Final Sputum Sputum Culture - Final Corynebacterium striatum Assessment and Plan Assessment: Altered mental status encephalopathy/coma likely related to propofol but component of anoxic injury to brain cannot be excluded now off of propofol for 2 days anoxic diffuse injury to brain appears to be more likely Status post cardiopulmonary arrest Intermittent runs of V. tach rhythm appears to be more organized now on lidocaine and amiodarone Aspiration pneumonia Status post V. fib cardiac arrest Acute renal failure mostly appears to be cardiorenal Upper GI coffee-ground emesis likely due to stress ulceration patient has been on Protonix Acute on chronic hypoxic respiratory failure Acute on chronic heart failure related to systolic heart failure Left foot with inflammation involving toes Bilateral pleural effusion Bilateral basal atelectasis COPD without exacerbation Severe leg uncontrolled diabetes with chronic complication with worsening Chronic atrial fibrillation Coagulopathy with elevated PT/INR, Coumadin is on hold Stage IV chronic renal failure baseline Plan: Continue to attempt hemodialysis as planned, currently undergoing a hemodialysis CT of the head reviewed and repeat EEG is pending, neurology is following Titrate oxygen down as tolerated Titrate down the vasopressors as tolerated Continue to monitor patient closely in ICU Replace electrolytes Continue amiodarone Continue lidocaine Continue broad-spectrum antibiotics with Flagyl and vancomycin and cefapime Continue ventilator adjustment as needed and tolerated Tube feed on hold for now will start Reglan then reattempt in next 24 hours Hypothermia protocol not available in this institution Continue bronchodilators Labs and chest x-ray have been ordered for tomorrow As far as pleural effusion is concerned will monitor and observe no plans for thoracentesis Monitor renal functions and electrolytes closely Continue to hold Coumadin for now monitor observe PT/INR closely Further recommendations pending plan of care as per clinical response of patient, long-term prognosis poor Time with Patient: Greater than 30
--- NOTE | 2020-02-07 15:51 | PN ---
PROGRESS NOTE Patient is seen for followup for end-stage renal disease. He is currently awaiting Neurology input regarding possible anoxic encephalopathy. I discussed with patient's and at this time she would like to have him continue with dialysis until she discusses further with neurologist. The initial EEG on February 05 showed evidence of epileptiform activity and patient was started on valproic acid. The patient's catheter was not functioning and therefore a new catheter was going to be replaced. However, the senior controls technician did attempt the old catheter and she seems to be having a fair flow at this time. PHYSICAL EXAMINATION: This morning, patient is on the vent. His Levophed is significantly decreased. Blood pressure was 130/53, heart rate 50 per minute, he is afebrile. Examination shows bilateral breath sounds. Abdomen is soft, nontender. Examination of the lower extremities shows chronic skin changes, edema 1+ bilaterally. LABS: Show hemoglobin 10.6, sodium 135, potassium 5.4, chloride 104, BUN 103, serum creatinine 6.43. ASSESSMENT: 1. End-stage renal disease started on hemodialysis. Patient is receiving his second treatment today. If the catheter functions fairly well. we do not need to replace it. 2. Mild hyperkalemia. Expect improvement with dialysis. 3. Metabolic acidosis. Expect improvement with dialysis, maintained on sodium bicarb. 4. Seizure activity, started on valproic acid, being followed by Neurology. PLAN: Should repeat hemodialysis in a.m. if catheter is functioning and if patient remains hemodynamically stable. MMODL / IJN: [id number] /
[2020-02-07 15:58] LABS: Glucose,Whole Blood 113 mg/dL (75-99)
[2020-02-07] MEDS: NOREPINEPHRINE 32 MG in SODIUM CHLORIDE 0.9% 218 ML IV SCH (16:05)
--- NOTE | 2020-02-07 16:42 | PN ---
PROGRESS NOTE DATE OF SERVICE: 02/07/2020 REASON FOR FOLLOWUP: Pneumonia. INTERVAL HISTORY: The patient is currently afebrile. The patient is intubated on the vent. He is currently undergoing hemodialysis requiring low-dose pressor support. No other changes reported by nursing staff. PHYSICAL EXAMINATION: Blood pressure 113/43 with a pulse of 49, temperature 98.1, he is 100% on 40% FiO2. General description is an elderly male, lying in bed in no distress. RESPIRATORY SYSTEM: Unlabored breathing, clear to auscultation anteriorly. HEART: S1, S2. Regular rate and rhythm. ABDOMEN: Soft. No tenderness. LABS: Hemoglobin is 10.8, white count of 16.9, BUN 103, creatinine 6.43. Sputum is chronic bacteria. DIAGNOSTIC IMPRESSION AND PLAN: Patient with acute respiratory failure which is likely multifactorial with a component of aspiration pneumonia. The patient is covered with Zosyn to continue. Sputum has been negative for any resistant gram-positive and will monitor clinical course closely. MMODL / IJN: [id number] /
--- NOTE | 2020-02-07 17:15 | PN ---
PROGRESS NOTE An 79-year-old gentleman who is admitted to hospital with acute exacerbation of chronic systolic heart failure. This morning, he remains intubated on vent on Lasix drip, lidocaine drip for the ventricular tachycardia and the patient's prognosis is guarded and family is considering possible terminal wean at this time. He is on oral amiodarone and lidocaine drip. PHYSICAL EXAM: Heart rate is 50 beats per minute, blood pressure is 130/53, respiratory rate is 18. Chest exam reveals diminished air entry at the bases, heart exam reveals first and second heart sounds. No gallop. Exam of extremities did not reveal any edema. Peripheral pulses are felt. ASSESSMENT: 1. Acute exacerbation of chronic systolic heart failure. 2. Respiratory failure. PLAN: Patient will continue current medications. Prognosis is poor. MMDAVIDL / IJN: [id number] /
[2020-02-07] MEDS ORDERED: WARFARIN 0.5 MG TAB PO ONE (18:00)
[2020-02-07] MEDS: LIDOCAINE-D5W PMX 2G/250ML 2,000 MG in DEXTROSE/WATER 1 250ML.BAG IV SCH (19:09)
[2020-02-07 19:43] LABS: Glucose,Whole Blood 104 mg/dL (75-99)
[2020-02-07] MEDS: TAMSULOSIN 0.4 MG CAP.ER.24H PO SCH (19:43)
[2020-02-07] MEDS: MONTELUKAST 10 MG TAB PO SCH (19:52)
--- NOTE | 2020-02-07 20:43 | P.PN ---
Subjective Progress Note Date: 02/07/20 Principal diagnosis: Anoxic brain injury No acute events reported overnight. Still patient remains without any spontaneous activity despite being off sedation. Objective - Vital Signs Vital signs: Vital Signs Temp 98.1 F 02/07/20 20:00 Pulse 53 L 02/07/20 20:11 Resp 15 02/07/20 20:00 BP 122/52 02/07/20 19:00 Pulse Ox 100 02/07/20 20:00 Intake & Output 02/07/20 02/07/20 02/08/20 06:59 18:59 06:59 Intake Total 310.977 430.411 9.682 Output Total 87 1083 Balance 223.977 -652.589 9.682 Weight 106.7 kg Intake: IV 300 360 Piperacillin-Tazobactam 3 100 100 .375 gm In Sodium Chloride 0.9% 100 ml @ 25 mls/hr IVPB Q12HR ENRI[facility] Rx #:[id number] Sodium Chloride 0.9% 1, 200 260 000 ml @ 20 mls/hr IV . Q24H ENRIQUE Rx#:[id number] Intake, IV Titration 10.977 70.411 9.682 Amount Norepinephrine 32 mg In 10.977 70.411 9.682 Sodium Chloride 0.9% 218 ml @ 0.3 MCG/KG/MIN 13. 458 mls/hr IV .[id number] ENRIQUE Rx#:[id number] Tube Feeding 0 Output: Urine 87 83 Hemodialysis 1000 Other: Voiding Method Indwelling Catheter Indwelling Catheter Indwelling Catheter ABP, PAP, CO, CI - Last Documented Arterial Blood Pressure 143/43 - Exam EEG was reviewed today. There is been some slight improvement and less epileptiform activity compared to the EEG done yesterday. However there is still generalized slowing no clear wake sleep architecture. This is consistent with generalized cerebral dysfunction seen in encephalopathy. Examination 1. Gag reflex is intact. 2. Bilateral corneal blink reflexes were elicited. 3. Pupils are 2 mm equally reactive to light and accommodation. 4. No spontaneous eye opening. 5. No withdrawal to tactile stimulation on plantar stimulation. 6. Deep tendon reflexes are absent throughout. No ankle clonus is elicited. VISHNU COMA SCALE (3) Eye opening response: No response (1) Verbal response: No response ( 1.) Motor response: No response (1) - Labs CBC & Chem 7: 02/07/20 03:55 02/07/20 03:55 Labs: Abnormal Lab Results - Last 24 Hours (Table) 02/06/20 02/07/20 02/07/20 Range/Units 23:03 03:55 03:55 WBC 16.9 H (3.8-10.6) k/uL RBC 3.63 L (4.30-5.90) m/uL Hgb 10.6 L (13.0-17.5) gm/dL Hct 34.0 L (39.0-53.0) % RDW 17.0 H (11.5-15.5) % Neutrophils # 14.9 H (1.3-7.7) k/uL Lymphocytes # 0.9 L (1.0-4.8) k/uL PT 41.6 H (9.0-12.0) sec INR 4.2 H (<1.2) ABG pH (7.35-7.45) ABG pCO2 (35-45) mmHg ABG pO2 (83-108) mmHg ABG HCO3 (21-25) mmol/L ABG Total CO2 (19-24) mmol/L ABG O2 Saturation (94-97) % Sodium (137-145) mmol/L Potassium (3.5-5.1) mmol/L Carbon Dioxide (22-30) mmol/L BUN (9-20) mg/dL Creatinine (0.66-1.25) mg/dL Glucose (74-99) mg/dL POC Glucose (mg/dL) 121 H (75-99) mg/dL Calcium (8.4-10.2) mg/dL 02/07/20 02/07/20 02/07/20 Range/Units 03:55 03:57 04:26 WBC (3.8-10.6) k/uL RBC (4.30-5.90) m/uL Hgb (13.0-17.5) gm/dL Hct (39.0-53.0) % RDW (11.5-15.5) % Neutrophils # (1.3-7.7) k/uL Lymphocytes # (1.0-4.8) k/uL PT (9.0-12.0) sec INR (<1.2) ABG pH 7.34 L (7.35-7.45) ABG pCO2 31 L (35-45) mmHg ABG pO2 131 H (83-108) mmHg ABG HCO3 17 L (21-25) mmol/L ABG Total CO2 18 L (19-24) mmol/L ABG O2 Saturation 99.1 H (94-97) % Sodium 135 L (137-145) mmol/L Potassium 5.4 H (3.5-5.1) mmol/L Carbon Dioxide 16 L (22-30) mmol/L BUN 103 H* (9-20) mg/dL Creatinine 6.43 H (0.66-1.25) mg/dL Glucose 168 H (74-99) mg/dL POC Glucose (mg/dL) 166 H (75-99) mg/dL Calcium 7.7 L (8.4-10.2) mg/dL 02/07/20 02/07/20 02/07/20 Range/Units 08:41 11:59 15:57 WBC (3.8-10.6) k/uL RBC (4.30-5.90) m/uL Hgb (13.0-17.5) gm/dL Hct (39.0-53.0) % RDW (11.5-15.5) % Neutrophils # (1.3-7.7) k/uL Lymphocytes # (1.0-4.8) k/uL PT (9.0-12.0) sec INR (<1.2) ABG pH (7.35-7.45) ABG pCO2 (35-45) mmHg ABG pO2 (83-108) mmHg ABG HCO3 (21-25) mmol/L ABG Total CO2 (19-24) mmol/L ABG O2 Saturation (94-97) % Sodium (137-145) mmol/L Potassium (3.5-5.1) mmol/L Carbon Dioxide (22-30) mmol/L BUN (9-20) mg/dL Creatinine (0.66-1.25) mg/dL Glucose (74-99) mg/dL POC Glucose (mg/dL) 164 H 150 H 113 H (75-99) mg/dL Calcium (8.4-10.2) mg/dL 02/07/20 Range/Units 19:41 WBC (3.8-10.6) k/uL RBC (4.30-5.90) m/uL Hgb (13.0-17.5) gm/dL Hct (39.0-53.0) % RDW (11.5-15.5) % Neutrophils # (1.3-7.7) k/uL Lymphocytes # (1.0-4.8) k/uL PT (9.0-12.0) sec INR (<1.2) ABG pH (7.35-7.45) ABG pCO2 (35-45) mmHg ABG pO2 (83-108) mmHg ABG HCO3 (21-25) mmol/L ABG Total CO2 (19-24) mmol/L ABG O2 Saturation (94-97) % Sodium (137-145) mmol/L Potassium (3.5-5.1) mmol/L Carbon Dioxide (22-30) mmol/L BUN (9-20) mg/dL Creatinine (0.66-1.25) mg/dL Glucose (74-99) mg/dL POC Glucose (mg/dL) 104 H (75-99) mg/dL Calcium (8.4-10.2) mg/dL Assessment and Plan Assessment: This is an 79-year-old gentleman who has significant stroke risk factors including diabetes hypertension. He has cardiopulmonary disease involving COPD and congestive heart failure, atrial fib with pacemaker. 13 days prior to admission he was admitted for increasing dyspnea. On this admission was found that he does have per progressive congestive heart failure. On day 4 he had a cardiac arrest in the evening requiring defibrillation and now in sepsis with shock. Due to his unresponsiveness on the ventilator despite being off sedation there is concern for anoxic brain injury/Neurology re-consulted. Today's examination still shows very poor prognosis with only a Vishnu Coma Scale of 3. The EEG showed only minimal improvement in the quantity of epileptiform activity. This is most likely due to valproic acid having some impact. Summary: 1. Initial admission for increasing dyspnea/ ams, 2NDARY TO metabolic encephalopathy 2. Cardiac arrest on hospital day 4. Severe sepsis with shock. 3. Patient not responding to stimulation off sedation requires continued intu bation 4. EEG shows generalized diffuse cerebral dysfunction with periodic lateralized epileptiform discharges over the right hemisphere 5. End-stage renal disease. Patient unable to tolerate dialysis at this time. 6. Severe sepsis with shock 7. Stroke risk factors: Diabetes. Hypertension. Cardiovascular disease. Plan: 1. Check valproic acid level (trough level) in a.m. 2. Arrange for family team meeting with to discuss long-term prognosis. 3. Arrange for follow up computed tomography scan of the head on Wednesday morning. 4. Continue with valproic acid 250 mg IV every 8 hours. 5. Check ammonia level due to valproic acid increase the risk for hyperammonemia. This patient's prognosis remains very poor. Further recommendations will be made as this case evolves. Thank you for allowing up to spin care of your patient. Lazara Abraham M.D. Board certified in neurology and sleep medicine
--- NOTE | 2020-02-07 23:16 | PN ---
PROGRESS NOTE Anoxic brain injury. Patient is not waking up, weaning wean off the ventilator, remains without any spontaneous activity despite being off sedation. He is on triple antibiotics for sepsis. has been attempted. Temperature 98.1, pulse 53, respiratory rate 15 and 12, blood pressure 122/52, O2 saturation 100%. PSYCH: Resting comfortably on the vent. Labs are reviewed. ABGs reviewed. Significant stroke risk factors, diabetes, hypertension, chronic obstructive pulmonary disease, congestive heart failure, atrial fibrillation, status post cardiac arrest, sepsis, possible anoxic brain injury, metabolic encephalopathy, end-stage renal disease. stroke risk factors. Valproic acid for possible seizures. He is to get a CT scan of his head Wednesday morning. Continue on valproic acid. Check ammonia level. Prognosis remains poor. Please see further orders. MMODL / IJN: [id number] /
[2020-02-08 00:05] LABS: Glucose,Whole Blood 115 mg/dL (75-99)
[2020-02-08] MEDS: METOCLOPRAMIDE 5 MG/ML 2 ML VIAL IVP SCH ×3 (00:08→14:48)
[2020-02-08] MEDS: INSULIN ASPART (NovoLOG) 100 UNIT/ML VIAL SQ SCH ×4 (00:09→17:17)
[2020-02-08] MEDS: VALPROATE SODIUM 250 MG in SODIUM CHLORIDE 0.9% 100 ML IVPB SCH ×3 (01:04→18:45)
[2020-02-08 04:46] LABS: Anisocytosis Slight; Basophils % (A) 0 %; Eosinophils # (A) 0.2 k/uL (0-0.7); Eosinophils % (A) 1 %; HCT 34.2 % (39.0-53.0); HGB 10.6 gm/dL (13.0-17.5); Hypochromasia Marked; Lymphocytes # (A) 0.9 k/uL (1.0-4.8); Lymphocytes % (A) 7 %; MCH 29.3 pg (25.0-35.0); MCHC 30.9 g/dL (31.0-37.0); MCV 94.6 fL (80.0-100.0); Mean Platelet Volume 9.4; Monocytes # (A) 0.7 k/uL (0-1.0); Monocytes % (A) 5 %; Neutrophils # (A) 11.1 k/uL (1.3-7.7); Neutrophils % (A) 84 %; Platelet Count 177 k/uL (150-450); Poikilocytosis Slight; RBC 3.62 m/uL (4.30-5.90); RDW 17.3 % (11.5-15.5); WBC 13.2 k/uL (3.8-10.6)
[2020-02-08 05:01] LABS: Prothrombin Time 59.4 sec (9.0-12.0)
[2020-02-08 05:13] LABS: ABG HCO3 18 mmol/L (21-25); ABG PCO2 32 mmHg (35-45); ABG PH 7.35 (7.35-7.45); ABG PO2 133 mmHg (83-108); ABG TCO2 19 mmol/L (19-24); Allen Test Performed? Yes
[2020-02-08 05:16] LABS: Albumin 2.3 g/dL (3.5-5.0); Calcium 7.5 mg/dL (8.4-10.2); Potassium 4.9 mmol/L (3.5-5.1); Total Bilirubin 0.7 mg/dL (0.2-1.3)
[2020-02-08 05:21] LABS: Vancomycin,Random 20.6 ug/mL
[2020-02-08] MEDS: NOREPINEPHRINE 32 MG in SODIUM CHLORIDE 0.9% 218 ML IV SCH (05:22)
[2020-02-08 05:26] LABS: Glucose,Whole Blood 118 mg/dL (75-99)
[2020-02-08 05:42] LABS: INR 5.9 (<1.2)
[2020-02-08] MEDS: IPRATROPIUM-ALBUTEROL 3 ML NEB INHALATION SCH ×4 (07:14→19:21)
[2020-02-08] MEDS ORDERED: PHYTONADIONE ORAL 5 MG/5 ML ORAL.SYRG PO STA (08:01)
--- NOTE | 2020-02-08 08:13 | XR ---
EXAMINATION TYPE: XR chest 1V portable DATE OF EXAM: 02/08/2020 COMPARISON: 02/07/2020 INDICATION: Intubated TECHNIQUE: Single frontal view of the chest is obtained. FINDINGS: The heart size is normal. The pulmonary vasculature is normal. There is increased lung opacity at the right lung base. A small right pleural effusion appears to be present. Findings are stable over the interval. Nasogastric tube transverses the thorax the tip in left upper quadrant of the abdomen. Endotracheal t ube tip is above the reva. Right central venous catheter is present with the tip in the proximal ri ght atrium. Pacemaker overlies left chest. IMPRESSION: 1. Stable right base lung opacity and small right pleural effusion. 2. Lines and catheters discussed above.
[2020-02-08] MEDS: PANTOPRAZOLE 40 MG/10 ML VIAL IVP SCH ×2 (08:46→19:54)
[2020-02-08] MEDS: CHLORHEXIDINE GLUCONATE 15 ML CUP MUCOUS MEM SCH ×2 (08:46→19:54)
[2020-02-08] MEDS: AMIODARONE 200 MG TAB PO SCH ×2 (08:46→19:55)
[2020-02-08] MEDS: METOLAZONE 5 MG TAB PO SCH ×2 (08:47→19:55)
[2020-02-08] MEDS: CARBIDOPA-LEVODOPA 10-100 MG 1 EACH TAB PO SCH ×2 (08:47→19:54)
[2020-02-08] MEDS: SENNOSIDES 8.6 MG TAB PO SCH ×2 (08:47→19:55)
[2020-02-08] MEDS: CALCITRIOL 0.25 MCG CAP PO SCH ×2 (08:47→08:50)
[2020-02-08] MEDS: ISOSORBIDE MONONITRATE ER 15 MG TAB PO SCH (08:48)
[2020-02-08] MEDS: CARVEDILOL 3.125 MG TAB PO SCH ×2 (08:48→19:50)
[2020-02-08] MEDS: PIPERACILLIN-TAZOBACTAM 3.375 GM in SODIUM CHLORIDE 0.9% 100 ML IVPB SCH ×2 (11:18→19:54)
[2020-02-08] MEDS: SODIUM CHLORIDE 0.9% 1,000 ML IV SCH (11:18)
[2020-02-08 11:23] LABS: Glucose,Whole Blood 120 mg/dL (75-99)
--- NOTE | 2020-02-08 13:01 | PN ---
PROGRESS NOTE Patient is seen for followup for end-stage renal disease. Patient tolerated his dialysis fairly well yesterday. We removed about 1 L of fluid. He is scheduled for hemodialysis again today. Patient remains on the vent. He is still not following any commands. No significant urine output. Levophed is at about 7 mcg. FiO2 remains at 40%. PHYSICAL EXAMINATION: Blood pressure was 113/50, heart rate 49 per minute, patient is afebrile. Bilateral breath sounds are heard. Abdomen is soft. Examination of the lower extremities shows edema with chronic skin changes. [employer] exam shows patient has not been responding or following commands without sedation. LABS: Show sodium 137, potassium 4.9, chloride 103, CO2 is 16, BUN 98, serum creatinine 6.53, hemoglobin 10.6 g/dL. ASSESSMENT: 1. End-stage renal disease, started on hemodialysis this admission, first treatment on 02/03/2020. Patient tolerated his treatment fairly well yesterday. He is being dialyzed again today. We did have trouble with the catheter, however, it seemed to be functioning okay for now. 2. Metabolic acidosis. Expect further improvement with ongoing dialysis. 3. Seizure activity noted on EEG, maintained on Depakote. 4. Encephalopathy, being followed by Neurology. 5. CKD mineral bone disorder. 6. Anemia of chronic disease, maintained on Aranesp. 7. Status post cardiac arrest with possible anoxic encephalopathy. PLAN: Repeat hemodialysis today. We will assess tomorrow for need for dialysis again, based on his volume status. I will add sodium bicarb if his acidosis is not improved by tomorrow. MMODL / IJN: [id number] /
--- NOTE | 2020-02-08 13:25 | P.PN ---
Subjective Progress Note Date: 02/08/20 (Critical care time 35 minutes) Principal diagnosis: Metabolic encephalopathy/altered mental status Status post cardiopulmonary arrest Intermittent runs of V. tach Aspiration pneumonia Acute hypoxic respiratory failure Acute on chronic renal failure Upper GI bleed/coffee-ground emesis Gastric distention Acute on chronic heart failure related to systolic heart failure Left foot with inflammation involving toes Bilateral pleural effusion Bilateral basal atelectasis COPD without exacerbation Severe leg uncontrolled diabetes with chronic complication with worsening Chronic atrial fibrillation Coagulopathy with elevated PT/INR, Coumadin is on hold Stage IV chronic renal failure 02/08/2020, patient seen eval examined during the rounds labs reviewed medic ations reviewed care plan discussed, patient the appears to be developing some coagulopathy due to poor liver functions small dose of vitamin K given, hemodynamically patient's stable but continued to require vasopressors to have a adequate blood pressure currently patient had a dialysis second dialysis today, tolerated very well, however patient remains poorly responsive off of propofol and need For sedation for last 3 days, ventilator remains stable with assist control rate of 16 breathing about 20 to, tidal volume is 600 PEEP of 5, oxygen is 40% now, patient to feed is to be reinitiated, white cell count is 13,000 hemoglobin and hematocrit stable, arterial blood gas stable, x overall stable with the ET tube as well as the line, right basal atelectasis small right-sided pleural effusion not much change, he has some gag and corneal reflexes now, 2 L of fluid has been removed today during dialysis levo fed drip is down to 5 mics 02/07/2020, patient seen eval reexamined during the rounds labs reviewed medications reviewed radiographic studies reviewed as well patient continues to get worsening of pleural effusion requiring emergent dialysis, currently patient is undergoing dialysis 1 L of fluid removed, patient is on 0.1 of levo fed drip which is up from yesterday, patient is off of sedation with propofol for almost 2 days, mental status still compromised patient not breaking up with the sternal rub likely metabolic encephalopathy neurology is also following, when setting includes assist control rate of 16 breathing about 20, tidal volume 600, PEEP is is 5, oxygen is down to 40%, oxygen and oxygenation air entry is better situational 100% patient remains afebrile rest or secretions are minimal, Keofeed is on hold patient has been on Reglan to figure will be started later on once dialysis is over, cardiovascular point patient remains on lidocaine drip, he is on amiodarone oral/through the NG-tube, white cell count is up to 16,000, creatinine is up to 6.43 predialysis 02/06/2020, patient seen eval examined during the rounds labs reviewed medications reviewed care plan discussed with the staff at length, propofol has been discontinued since last night patient remains unresponsive, neurology service has been following computed tomography scan of the head has been ordered, EKG repeat is pending, pulmonary-quiñones have patient has been doing better remains afebrile no significant respiratory secretions are seen FiO2 is down to 40% remains on PEEP of 10 and tidal volume of 500 rate of 16 breathing about 20-24, we can safely bring down the PEEP to 5 now, chest x-ray reviewed bilateral interstitial Petrin is present but now patient appears to be developing bilateral pleural effusion, dialysis is not performed today patient remains on 16 mics of levo fed, remains on broad-spectrum antibiotics, no significant arrhythmias noted, renal function continued to go up, patient to feed is on hold due to high residuals will start Reglan and reattempt in next 24 hours 02/05/2020, patient seen eval reexamined during her medication was resumed and continue breathing over the ventilator, current setting include assist control rate of 16 breathing about 20-24, tidal volume is 500, PEEP is 10, FiO2 is down to 40% now, heart rhythm remains in flutter with paced rhythm bradycardic about 45-50, patient remained on lidocaine drip, the amiodarone has been changed to or al, for hemodynamic support patient remains on 18 mics of levo fed, however it's down from 30 mics from this morning, less cyanosis in hand and toes noted, cultures have been negative, patient is tolerating tube feed well, chest x-ray shows stability, patient remains on broad-spectrum antibiotics for the diabetic foot ulcer and as well as a right-sided aspiration pneumonia on cephapirin Vanco and Flagyl, patient could not tolerate dialysis today due to fluctuation in blood pressure and rhythm, will reattempt tomorrow patient is definitely not ready for weaning critical care time 35 minutes 02/04/2020, patient seen and evaluated examined during the round remains on full ventilator support currently on assist control 16, tidal Volume of 500, 10 of PEEP and 50% oxygen, ABGs are stable, chest x-ray revealed stable, continue show dense right-sided infiltrate, but overall is stable, patient is intermittently regarding runs of V. tach, extra dose of amiodarone has been given, cardiovascular services following, patient is on 20 mics of levo fed, Keofeed is stable, patient has discoloration of fingers and toes, due to vasoconstriction related to the vasopressors, A-line and central line has been working labs reviewed, overall given the irritable nature of myocardium long-term prognosis i s poor patient remains a full code was discussed cord issue with the family as per request of hospital staff, patient overall appears to not tolerate the CPR or shock in the event need arise, critical care time 35 minutes 02/03/2020, patient seen and evaluated examined during the rounds sedated with propofol drip about 30 mics patient is on full vent support, hypoxia Significantly worse after V. fib cardiac arrest have been earlier this morning, patient has been intubated, chest x-ray reviewed, patient is on amiodarone drip, status post ACLS protocol, revived, patient underwent a hemodialysis catheter this morning, currently dialysis is undergoing plan is to remove a liter, patient is on levo fed drip, urgently needed central line and A-line because of poor peripheral IV axis and risk of externalization of vasopressors, still have coffee-ground material coming but severity appears to improve gastric secretions light and now patient is on Armaan Keofeed can be started, patient has third spacing and tissue edema with ecchymosis and bruising upper extremity, also has diabetic foot ulcer, patient remains on broad-spectrum antibiotic with Cefepime, we'll add vancomycin with pharmacy to dose, vent setting currently include assist control with PEEP of 10 FiO2 is 60% oxygen saturations were dropping into high 80s FiO2 increase to 70%, critical care time spent 35 minutes 02/02/2020, patient seen eval examined during the rounds labs reviewed medications reviewed, patient remains on dobutamine drip off of dopamine drip he is on Lasix 50 mg an hour, patient due to gastric distention was the having coffee-ground and Mrs. however hemoglobin remained stable white cell count went up to 15,000, patient INR isn't therapeutic range now,, patient has been on proton pump inhibitor, a computed tomography scan of the abdominal and pelvis has been performed which has been reviewed no gastric outlet obstruction has been noted but stomach may be slightly distended due to air, arterial blood gas have been reviewed adequate ventilation and oxygenation is present x-ray however suggestive of the fluid overload with bilateral pleural effusion not much change, renal functions remains on the higher level, patient likely will need hemodialysis with volume removal, care plan discussed with the staff further recommendations pending plan of care as per clinical response of the patient 02/01/2020, patient seen eval examined during the rounds, he remains afebrile, hemodynamic status stable however the blood pressure continue be on the low side oxygen saturation is 98% on 2 L, patient remains on breathing treatments and broad-spectrum antibiotics, do vitamin have been on hold due to tachycardia however remains on Lasix drip, Coumadin remains on hold recommend to check on a daily basis and resume Coumadin once is okay from cardiovascular services 01/31/2020, patient seen eval examined during the rounds has history of oxygen breathing status stable, saturation is 90-93%, patient has been on dobutamine and dopamine and Lasix strip, INR is coming down, BUN/creatinine slightly up This is a 79-year-old male who was seen evaluated examined on third floor, patient came into the hospital with progressive shortness of breath associated with last 1-2 weeks with increased swelling progressively from the 4 extremities to mid abdominal level in addition patient appears to be having diabetic foot infection with edema and redness in the toes as well in the left foot, patient is arousable but tired on 3 L oxygen, patient is to be started on Lasix drip along with dobutamine drip, patient has a history of COPD chronic systolic heart failure chronic atrial fibrillation diabetes along with chronic renal failure stage IV, currently patient is on WelChol dilators in the form of DuoNeb, ID service has been requested for antibiotics, his chest x-ray consistent with congestive heart failure fluid overload and pulmonary edema in addition to his interstitial edema and small bilateral pleural effusion Objective - Vital Signs Vital signs: Vital Signs Temp 98.4 F 02/08/20 08:00 Pulse 49 L 02/08/20 11:20 Resp 16 02/08/20 11:00 BP 113/50 02/08/20 11:00 Pulse Ox 100 02/08/20 11:00 Intake & Output 02/07/20 02/08/20 02/08/20 18:59 06:59 18:59 Intake Total 430.411 461.710 323.517 Output Total 1083 64 5 Balance -652.589 397.710 318.517 Weight 106.7 kg 104 kg Intake: IV 360 420 200 Piperacillin-Tazobactam 3 100 100 .375 gm In Sodium Chloride 0.9% 100 ml @ 25 mls/hr IVPB Q12HR [facility] Rx #:[id number] Sodium Chloride 0.9% 1, 260 220 100 000 ml @ 20 mls/hr IV . Q24H [facility] Rx#:[id number] Valproate Sodium 250 mg 100 100 In Sodium Chloride 0.9% 100 ml @ 100 mls/hr IVPB Q8HR [facility] Rx#:[id number] Intake, IV Titration 70.411 41.710 13.517 Amount Norepinephrine 32 mg In 70.411 41.710 13.517 Sodium Chloride 0.9% 218 ml @ 0.3 MCG/KG/MIN 13. 458 mls/hr IV .[id number] [facility] Rx#:[id number] Tube Feeding 0 0 80 Other 30 Output: Urine 83 64 5 Hemodialysis 1000 Other: Voiding Method Indwelling Catheter Indwelling Catheter Indwelling Catheter ABP, PAP, CO, CI - Last Documented Arterial Blood Pressure 130/39 - Exam Intubated sedated on full respiratory support diffuse ecchymosis edema and third spacing - Constitutional General appearance: disheveled, mild distress, morbidly obese, unresponsive to deep sternal rub - Neck Neck: Supple Carotids: bilateral: upstroke normal - Respiratory Respiratory: bilateral: diminished, dullness, rales bronchial breath sounds especially on the right side - Cardiovascular Rhythm: regular Heart sounds: normal: S1, S2 - Gastrointestinal General gastrointestinal: normal bowel sounds, soft - Musculoskeletal Musculoskeletal: generalized weakness, strength equal bilaterally - Psychiatric Psychiatric: Sedated on full ventilator support Edema involving the lower extremity up to the abdominal level, in addition left diabetic foot involvement of the toes - Labs CBC & Chem 7: 02/08/20 04:35 02/08/20 04:35 Labs: Abnormal Lab Results - Last 24 Hours (Table) 02/07/20 02/07/20 02/07/20 Range/Units 04:26 15:57 19:41 WBC (3.8-10.6) k/uL RBC (4.30-5.90) m/uL Hgb (13.0-17.5) gm/dL Hct (39.0-53.0) % MCHC (31.0-37.0) g/dL RDW (11.5-15.5) % Neutrophils # (1.3-7.7) k/uL Lymphocytes # (1.0-4.8) k/uL PT (9.0-12.0) sec INR (<1.2) ABG pH 7.34 L (7.35-7.45) ABG pCO2 31 L (35-45) mmHg ABG pO2 131 H (83-108) mmHg ABG HCO3 17 L (21-25) mmol/L ABG Total CO2 18 L (19-24) mmol/L ABG O2 Saturation 99.1 H (94-97) % Carbon Dioxide (22-30) mmol/L BUN (9-20) mg/dL Creatinine (0.66-1.25) mg/dL Glucose (74-99) mg/dL POC Glucose (mg/dL) 113 H 104 H (75-99) mg/dL Calcium (8.4-10.2) mg/dL Total Protein (6.3-8.2) g/dL Albumin (3.5-5.0) g/dL 02/08/20 02/08/20 02/08/20 Range/Units 00:04 04:35 04:35 WBC (3.8-10.6) k/uL RBC (4.30-5.90) m/uL Hgb (13.0-17.5) gm/dL Hct (39.0-53.0) % MCHC (31.0-37.0) g/dL RDW (11.5-15.5) % Neutrophils # (1.3-7.7) k/uL Lymphocytes # (1.0-4.8) k/uL PT 59.4 H (9.0-12.0) sec INR 5.9 H* (<1.2) ABG pH (7.35-7.45) ABG pCO2 (35-45) mmHg ABG pO2 (83-108) mmHg ABG HCO3 (21-25) mmol/L ABG Total CO2 (19-24) mmol/L ABG O2 Saturation (94-97) % Carbon Dioxide 16 L (22-30) mmol/L BUN 98 H (9-20) mg/dL Creatinine 6.53 H (0.66-1.25) mg/dL Glucose 135 H (74-99) mg/dL POC Glucose (mg/dL) 115 H (75-99) mg/dL Calcium 7.5 L (8.4-10.2) mg/dL Total Protein 5.0 L (6.3-8.2) g/dL Albumin 2.3 L (3.5-5.0) g/dL 02/08/20 02/08/20 02/08/20 Range/Units 04:35 05:09 05:24 WBC 13.2 H (3.8-10.6) k/uL RBC 3.62 L (4.30-5.90) m/uL Hgb 10.6 L (13.0-17.5) gm/dL Hct 34.2 L (39.0-53.0) % MCHC 30.9 L (31.0-37.0) g/dL RDW 17.3 H (11.5-15.5) % Neutrophils # 11.1 H (1.3-7.7) k/uL Lymphocytes # 0.9 L (1.0-4.8) k/uL PT (9.0-12.0) sec INR (<1.2) ABG pH (7.35-7.45) ABG pCO2 32 L (35-45) mmHg ABG pO2 133 H (83-108) mmHg ABG HCO3 18 L (21-25) mmol/L ABG Total CO2 (19-24) mmol/L ABG O2 Saturation 99.0 H (94-97) % Carbon Dioxide (22-30) mmol/L BUN (9-20) mg/dL Creatinine (0.66-1.25) mg/dL Glucose (74-99) mg/dL POC Glucose (mg/dL) 118 H (75-99) mg/dL Calcium (8.4-10.2) mg/dL Total Protein (6.3-8.2) g/dL Albumin (3.5-5.0) g/dL 02/08/20 Range/Units 11:22 WBC (3.8-10.6) k/uL RBC (4.30-5.90) m/uL Hgb (13.0-17.5) gm/dL Hct (39.0-53.0) % MCHC (31.0-37.0) g/dL RDW (11.5-15.5) % Neutrophils # (1.3-7.7) k/uL Lymphocytes # (1.0-4.8) k/uL PT (9.0-12.0) sec INR (<1.2) ABG pH (7.35-7.45) ABG pCO2 (35-45) mmHg ABG pO2 (83-108) mmHg ABG HCO3 (21-25) mmol/L ABG Total CO2 (19-24) mmol/L ABG O2 Saturation (94-97) % Carbon Dioxide (22-30) mmol/L BUN (9-20) mg/dL Creatinine (0.66-1.25) mg/dL Glucose (74-99) mg/dL POC Glucose (mg/dL) 120 H (75-99) mg/dL Calcium (8.4-10.2) mg/dL Total Protein (6.3-8.2) g/dL Albumin (3.5-5.0) g/dL Assessment and Plan Assessment: Altered mental status encephalopathy/coma likely related to propofol but component of anoxic injury to brain cannot be excluded now off of propofol for 2 days anoxic diffuse injury to brain appears to be more likely Status post cardiopulmonary arrest Intermittent runs of V. tach rhythm appears to be more organized now on lidoca ine and amiodarone Aspiration pneumonia Status post V. fib cardiac arrest Acute renal failure mostly appears to be cardiorenal Upper GI coffee-ground emesis likely due to stress ulceration patient has been on Protonix Acute on chronic hypoxic respiratory failure Acute on chronic heart failure related to systolic heart failure Left foot with inflammation involving toes Bilateral pleural effusion Bilateral basal atelectasis COPD without exacerbation Severe leg uncontrolled diabetes with chronic complication with worsening Chronic atrial fibrillation Coagulopathy with elevated PT/INR, Coumadin is on hold Stage IV chronic renal failure baseline Plan: Continue to attempt hemodialysis as planned, currently undergoing a hemodialysis today and the second hemodialysis tomorrow neurology is following Titrate oxygen down as tolerated Titrate down the vasopressors as tolerated Continue to monitor patient closely in ICU Replace electrolytes Continue amiodarone Continue lidocaine Continue broad-spectrum antibiotics with Flagyl and vancomycin and cefapime Continue ventilator adjustment as needed and tolerated Tube feed on hold for now will start Reglan then reattempt in next 24 hours Hypothermia protocol not available in this institution Continue bronchodilators Labs and chest x-ray have been ordered for tomorrow As far as pleural effusion is concerned will monitor and observe no plans for thoracentesis Monitor renal functions and electrolytes closely Continue to hold Coumadin for now monitor observe PT/INR closely, small dose of vitamin K being given as patient is getting more cooperative And risk of spontaneous breathing is Further recommendations pending plan of care as per clinical response of patient, long-term prognosis poor, family have requested DO NOT RESUSCITATE CODE STATUS Time with Patient: Greater than 30
--- NOTE | 2020-02-08 16:19 | P.PN ---
Subjective Progress Note Date: 02/08/20 Principal diagnosis: status post cardiac arrest anoxic brain injury subjective: No report Savini overnight events suspicious for seizure activities. No rashes to suggest possible Depakote reaction. Nurses report patient still has remained unresponsive to much stimulation other than suctioning and when washing face. Nurses are reporting that he does appear to grimace more his gag reflex is intact. Objective - Vital Signs Vital signs: Vital Signs Temp 98.2 F 02/08/20 14:24 Pulse 49 L 02/08/20 15:50 Resp 16 02/08/20 15:30 BP 115/41 02/08/20 15:30 Pulse Ox 100 02/08/20 15:30 Intake & Output 02/07/20 02/08/20 02/08/20 18:59 06:59 18:59 Intake Total 430.411 461.710 613.517 Output Total 1083 64 2035 Balance -652.589 397.710 -1421.483 Weight 106.7 kg 104 kg Intake: IV 360 420 380 Piperacillin-Tazobactam 3 100 100 100 .375 gm In Sodium Chloride 0.9% 100 ml @ 25 mls/hr IVPB Q12HR [facility] Rx #:[id number] Sodium Chloride 0.9% 1, 260 220 180 000 ml @ 20 mls/hr IV . Q24H [facility] Rx#:[id number] Valproate Sodium 250 mg 100 100 In Sodium Chloride 0.9% 100 ml @ 100 mls/hr IVPB Q8HR [facility] Rx#:[id number] Intake, IV Titration 70.411 41.710 13.517 Amount Norepinephrine 32 mg In 70.411 41.710 13.517 Sodium Chloride 0.9% 218 ml @ 0.3 MCG/KG/MIN 13. 458 mls/hr IV .[id number] [facility] Rx#:[id number] Tube Feeding 0 0 160 Other 60 Output: Urine 83 64 35 Hemodialysis 1000 2000 Other: Voiding Method Indwelling Catheter Indwelling Catheter Indwelling Catheter ABP, PAP, CO, CI - Last Documented Arterial Blood Pressure 136/34 - Exam Examination 1. Gag reflex is intact. 2. Bilateral corneal blink reflexes were elicited. 3. Pupils are 2 mm equally reactive to light and accommodation. 4. spontaneous eye opening was noted following washing his face and calling into his ear on the right side loudly. This occurred with tactile stimulation by placing thumb under right armpit shaking him. 5. plantar responses are equivocal now bilaterally. 6. Deep tendon reflexes are absent throughout. No ankle clonus is elicited. VISHNU COMA SCALE (3 02/06) TODAY (5) Eye opening response: No response (3) Verbal response: No response ( 1.) Motor response: No response (1) - Labs CBC & Chem 7: 02/08/20 04:35 02/08/20 04:35 Labs: Abnormal Lab Results - Last 24 Hours (Table) 02/07/20 02/07/20 02/08/20 Range/Units 04:26 19:41 00:04 WBC (3.8-10.6) k/uL RBC (4.30-5.90) m/uL Hgb (13.0-17.5) gm/dL Hct (39.0-53.0) % MCHC (31.0-37.0) g/dL RDW (11.5-15.5) % Neutrophils # (1.3-7.7) k/uL Lymphocytes # (1.0-4.8) k/uL PT (9.0-12.0) sec INR (<1.2) ABG pH 7.34 L (7.35-7.45) ABG pCO2 31 L (35-45) mmHg ABG pO2 131 H (83-108) mmHg ABG HCO3 17 L (21-25) mmol/L ABG Total CO2 18 L (19-24) mmol/L ABG O2 Saturation 99.1 H (94-97) % Carbon Dioxide (22-30) mmol/L BUN (9-20) mg/dL Creatinine (0.66-1.25) mg/dL Glucose (74-99) mg/dL POC Glucose (mg/dL) 104 H 115 H (75-99) mg/dL Calcium (8.4-10.2) mg/dL Total Protein (6.3-8.2) g/dL Albumin (3.5-5.0) g/dL 02/08/20 02/08/20 02/08/20 Range/Units 04:35 04:35 04:35 WBC 13.2 H (3.8-10.6) k/uL RBC 3.62 L (4.30-5.90) m/uL Hgb 10.6 L (13.0-17.5) gm/dL Hct 34.2 L (39.0-53.0) % MCHC 30.9 L (31.0-37.0) g/dL RDW 17.3 H (11.5-15.5) % Neutrophils # 11.1 H (1.3-7.7) k/uL Lymphocytes # 0.9 L (1.0-4.8) k/uL PT 59.4 H (9.0-12.0) sec INR 5.9 H* (<1.2) ABG pH (7.35-7.45) ABG pCO2 (35-45) mmHg ABG pO2 (83-108) mmHg ABG HCO3 (21-25) mmol/L ABG Total CO2 (19-24) mmol/L ABG O2 Saturation (94-97) % Carbon Dioxide 16 L (22-30) mmol/L BUN 98 H (9-20) mg/dL Creatinine 6.53 H (0.66-1.25) mg/dL Glucose 135 H (74-99) mg/dL POC Glucose (mg/dL) (75-99) mg/dL Calcium 7.5 L (8.4-10.2) mg/dL Total Protein 5.0 L (6.3-8.2) g/dL Albumin 2.3 L (3.5-5.0) g/dL 02/08/20 02/08/20 02/08/20 Range/Units 05:09 05:24 11:22 WBC (3.8-10.6) k/uL RBC (4.30-5.90) m/uL Hgb (13.0-17.5) gm/dL Hct (39.0-53.0) % MCHC (31.0-37.0) g/dL RDW (11.5-15.5) % Neutrophils # (1.3-7.7) k/uL Lymphocytes # (1.0-4.8) k/uL PT (9.0-12.0) sec INR (<1.2) ABG pH (7.35-7.45) ABG pCO2 32 L (35-45) mmHg ABG pO2 133 H (83-108) mmHg ABG HCO3 18 L (21-25) mmol/L ABG Total CO2 (19-24) mmol/L ABG O2 Saturation 99.0 H (94-97) % Carbon Dioxide (22-30) mmol/L BUN (9-20) mg/dL Creatinine (0.66-1.25) mg/dL Glucose (74-99) mg/dL POC Glucose (mg/dL) 118 H 120 H (75-99) mg/dL Calcium (8.4-10.2) mg/dL Total Protein (6.3-8.2) g/dL Albumin (3.5-5.0) g/dL Assessment and Plan Assessment: This is an 79-year-old gentleman who has significant stroke risk factors including diabetes hypertension. He has cardiopulmonary disease involving COPD and congestive heart failure, atrial fib with pacemaker. 13 days prior to admission he was admitted for increasing dyspnea. On this admission was found that he does have per progressive congestive heart failure. On day 4 he had a cardiac arrest in the evening requiring defibrillation and now in sepsis with shock. Due to his unresponsiveness on the ventilator despite being off sedation there is concern for anoxic brain injury/Neurology re-consulted. Today's examination : Vishnu coma scale increased from 3-5 today due to the patient having minimal spontaneous eye opening when calling loudly on his right side with tactile stimulation. Valproic acid level is still at a sub-therapeutic level. Will increase valproic acid level now to 250 mg IV 4 times a day. We'll recheck level on Wednesday. Summary: 1. Initial admission for increasing dyspnea/ ams, 2NDARY TO metabolic encep halopathy 2. Cardiac arrest on hospital day 4. Severe sepsis with shock. 3. Patient not responding to stimulation off sedation requires continued intubation 4. EEG shows generalized diffuse cerebral dysfunction with periodic lateralized epileptiform discharges over the right hemisphere 5. End-stage renal disease. Patient unable to tolerate dialysis at this time. 6. Severe sepsis with shock 7. Stroke risk factors: Diabetes. Hypertension. Cardiovascular disease. 8. Glascow coma scale today increased from 3-5 based on now the patient having slight arousal and spontaneous eye opening to both tactile and auditory stimulation. Plan: 1. Arrange for family team meeting with to discuss long-term prognosis. 2. Arrange for follow up computed tomography scan of the head on Wednesday. 3. Continue with valproic acid 250 mg IV every QID 4. Follow up EEG on Wednesday. This patient's prognosis remains very poor. Further recommendations will be made as this case evolves. Thank you for allowing me to participate in the care of your patient. Lazara Abraham M.D. Board certified in neurology and sleep medicine
[2020-02-08] MEDS: LACTULOSE 20 GM/30 ML CUP NG-TUBE SCH (17:12)
[2020-02-08 17:18] LABS: Glucose,Whole Blood 179 mg/dL (75-99)
[2020-02-08 17:51] LABS: Glucose,Whole Blood 171 mg/dL (75-99)
[2020-02-08] MEDS ORDERED: WARFARIN 0.5 MG TAB PO ONE (18:00)
--- NOTE | 2020-02-08 19:35 | PN ---
PROGRESS NOTE DATE OF SERVICE: 02/08/2020 REASON FOR FOLLOWUP: Aspiration pneumonia. INTERVAL HISTORY: The patient is currently afebrile. The patient remains to be intubated on the vent, has been tolerating trials of tube feeds. No diarrhea has been reported or any other changes in clinical condition. FiO2 is stable at 40%. EXAMINATION: Blood pressure 115/41 with a pulse of 49, temperature 98. He is 100% on 40% FiO2. General description is an elderly male lying in bed in no distress. Respiratory system: Unlabored breathing, clear to auscultation anteriorly. Heart S1, S2. Regular rate and rhythm. Abdomen soft. Mildly distended. No guarding and no rigidity. LABS: White count down to 13.2 6.53. Sputum growing DIAGNOSTIC IMPRESSION AND PLAN: Patient with acute respiratory failure which is multifactorial in this patient who does have a component of pneumonia. Sputum negative for resistant pathogen. Patient covered with Zosyn to continue. White count showing a downward trend and we will monitor clinical course closely. MMODL / IJN: [id number] /
[2020-02-08] MEDS: TAMSULOSIN 0.4 MG CAP.ER.24H PO SCH (19:49)
[2020-02-08] MEDS: LIDOCAINE-D5W PMX 2G/250ML 2,000 MG in DEXTROSE/WATER 1 250ML.BAG IV SCH (19:54)
[2020-02-08] MEDS: MONTELUKAST 10 MG TAB PO SCH (19:55)
--- NOTE | 2020-02-08 20:22 | PN ---
PROGRESS NOTE 79-year-old gentleman is admitted to hospital with acute exacerbation of chronic systolic heart failure, is currently intubated on vent. He was evaluated by the neurologist who performed an EEG that shows mild epileptiform activity. Currently his neurological prognosis is very poor and there is a concern for anoxic brain injury. On exam, intubated on vent. Heart rate is 50 beats per minute. Blood pressure is 130/79. Mechanically ventilated with a FiO2 of 40%. Chest exam reveals good air entry without any crackles or rhonchi. Heart exam reveals first and second heart sounds. No gallop. Exam of extremities did not reveal any edema. Peripheral pulses are felt. ASSESSMENT: 1. Acute exacerbation of chronic systolic heart failure. 2. Permanent atrial fibrillation. 3. Anoxic brain injury. PLAN: Patient will continue with the current medical therapy and supportive care. Prognosis is guarded. CELESTE / ZENY: [id number] /
[2020-02-09 00:09] LABS: Glucose,Whole Blood 160 mg/dL (75-99)
[2020-02-09] MEDS: INSULIN ASPART (NovoLOG) 100 UNIT/ML VIAL SQ SCH ×5 (00:23→23:54)
[2020-02-09] MEDS: LACTULOSE 20 GM/30 ML CUP NG-TUBE SCH ×2 (00:23→10:47)
[2020-02-09] MEDS: VALPROATE SODIUM 250 MG in SODIUM CHLORIDE 0.9% 100 ML IVPB SCH ×5 (00:24→23:54)
[2020-02-09] MEDS: NOREPINEPHRINE 32 MG in SODIUM CHLORIDE 0.9% 218 ML IV SCH ×2 (00:26→19:10)
--- NOTE | 2020-02-09 01:05 | PN ---
PROGRESS NOTE He remains comfortable on the vent. responds to much stimulation. His gag reflex is intact. He is grimacing more. Temp 98.2, pulse 49, respiratory 16 to 20, blood pressure 115/41. CARDIOVASCULAR: S1, S2. LUNGS: Transmitted upper airway sounds. HEMATOLOGY: Negative Homans. PSYCH: Fair mood and affect. NEUROLOGIC: Alert and oriented x3. Labs are reviewed. ASSESSMENT: 1. Metabolic encephalopathy. 2. Cardiomyopathy. 3. Chronic obstructive pulmonary disease. 4. Congestive heart failure. 5. Sepsis. 6. Status post cardiac arrest. 7. End-stage renal disease. increased. Prognosis guarded. He is going to get a CT scan tomorrow. Continue on valproic acid. EEG on Wednesday. Try a trial of lactulose for possible cirrhosis contributing to his confusion as a possible source of lethargy and altered mental status. Please see further orders. MMODL / IJN: [id number] /
[2020-02-09 04:41] LABS: Anisocytosis Slight; HCT 32.3 % (39.0-53.0); HGB 10.1 gm/dL (13.0-17.5); Hypochromasia Marked; MCH 29.2 pg (25.0-35.0); MCHC 31.2 g/dL (31.0-37.0); MCV 93.6 fL (80.0-100.0); Mean Platelet Volume 9.6; Platelet Count 152 k/uL (150-450); Poikilocytosis Slight; RBC 3.45 m/uL (4.30-5.90); RDW 17.1 % (11.5-15.5); WBC 14.3 k/uL (3.8-10.6)
[2020-02-09 04:47] LABS: INR 3.7 (<1.2); Prothrombin Time 36.4 sec (9.0-12.0)
[2020-02-09 05:15] LABS: Calcium 7.4 mg/dL (8.4-10.2); Potassium 4.3 mmol/L (3.5-5.1)
[2020-02-09 06:07] LABS: Glucose,Whole Blood 110 mg/dL (75-99)
[2020-02-09] MEDS: IPRATROPIUM-ALBUTEROL 3 ML NEB INHALATION SCH ×4 (07:21→18:29)
--- NOTE | 2020-02-09 07:27 | XR ---
EXAMINATION TYPE: XR chest 1V portable DATE OF EXAM: 02/09/2020 COMPARISON: 02/08/2020 HISTORY: Ventilatory dependent respiratory failure TECHNIQUE: Single frontal view of the chest is obtained. FINDINGS: Endotracheal tube appears slightly cephalad in placement terminating proximally centimeter s from the reav. This can be advanced 2 to 3 cm for optimal placement. Moderate right pleural effus ion and associated right-sided airspace disease remain. Trace left pleural effusion blunts the costop hrenic angle. Cardiomediastinal silhouette is enlarged with left-sided cardiac device. There is diffu se osseous demineralization. Enteric tube is coiled in the region of the stomach. Right central venou s catheter terminates in the high right atrium. IMPRESSION: Stable moderate right and trace left pleural effusions with associated right-sided airspace disease, likely atelectasis.
[2020-02-09] MEDS: METOLAZONE 5 MG TAB PO SCH ×2 (10:47→21:14)
[2020-02-09] MEDS: PANTOPRAZOLE 40 MG/10 ML VIAL IVP SCH ×2 (10:47→21:15)
[2020-02-09] MEDS: CHLORHEXIDINE GLUCONATE 15 ML CUP MUCOUS MEM SCH ×2 (10:47→21:15)
[2020-02-09] MEDS: AMIODARONE 200 MG TAB PO SCH ×2 (10:48→21:15)
[2020-02-09] MEDS: CARBIDOPA-LEVODOPA 10-100 MG 1 EACH TAB PO SCH ×2 (10:48→21:14)
[2020-02-09] MEDS: ISOSORBIDE MONONITRATE ER 15 MG TAB PO SCH (10:48)
[2020-02-09] MEDS: CARVEDILOL 3.125 MG TAB PO SCH ×2 (10:49→21:15)
[2020-02-09] MEDS: SENNOSIDES 8.6 MG TAB PO SCH ×2 (10:50→21:16)
[2020-02-09] MEDS: SODIUM CHLORIDE 0.9% 1,000 ML IV SCH (10:50)
[2020-02-09] MEDS: PIPERACILLIN-TAZOBACTAM 3.375 GM in SODIUM CHLORIDE 0.9% 100 ML IVPB SCH ×2 (10:51→21:15)
--- NOTE | 2020-02-09 12:11 | PN ---
PROGRESS NOTE Patient is seen for followup for end-stage renal disease. He tolerated his treatment fairly well yesterday with UF of about 1 L. We will plan for a treatment again today. Patient remains on the vent. He is not waking up. No significant urine output. Levophed is currently at 0.08 mcg/kg. Patient remains on IV Depakote. PHYSICAL EXAMINATION: On examination, patient is on the vent. No significant responses noted. Blood pressure 119/44, heart rate 49 per minute. He is afebrile. Examination of the heart S1, S2. Examination of the lungs, bilateral breath sounds are heard. Abdomen is soft, nontender. Exam of the lower extremities shows edema 2+ bilaterally with chronic skin changes. CHEMICAL RESEARCH TECHNICIAN exam shows patient not moving any of his extremities. No significant responses noted. LABS: Show sodium 135, potassium 4.3, chloride 102, CO2 is 18, BUN 92, serum creatinine 5.9. ASSESSMENT: 1. End-stage renal disease started on hemodialysis this admission. Patient will be having his third treatment today. He tolerated his treatment fairly well yesterday, catheter is functioning okay for now. 2. Hypoxic respiratory failure, status post cardiac arrest. 3. Severe encephalopathy with EEG showing epileptiform discharges, maintained on Depakote. 4. Metabolic acidosis associated with renal failure, improving with renal replacement therapy. 5. Status post cardiac arrest with VFib, maintained on lidocaine drip. 6. Volume overload, increase UF to about 2 L as tolerated today. PLAN: Hemodialysis today. Will evaluate on a daily basis for need for treatment. I will dialyze him again tomorrow as according to nursing staff. There may be some the improvement in grimacing noted. In there is an element of uremia, ongoing continued renal replacement therapy will benefit his encephalopathy. MMODL / IJN: [id number] /
--- NOTE | 2020-02-09 12:56 | P.PN ---
Subjective Progress Note Date: 02/09/20 This is an 79-year-old gentleman admitted with acute CHF exacerbation, EF of 25- 30% with multiple valvular disease including moderate aortic stenosis, renal failure, right lower extremity cellulitis and multiple other medical issues. During the night patient developed bradycardia with heart rates dropping from 100 to 50s, 12 beat run of V. tach , respiratory distress with wheezing ,projectile vomiting, a-teamed,NG tube placed. Magnesium and potassium levels within normal limits. Abdomen significantly distended with dark drainage from NG tube-positive gastric occult blood. Hemoglobin 9.8. During the night patient also required increasing oxygen bumped up to 4 L nasal cannula, currently maintaining O2 sats in the 90s on 2 L nasal cannula, respiratory rate 24, mild tachycardia. Systolic blood pressure in the 120s. Afebrile, elevated WBC 15.3. BUN 83, creatinine 3.84. CO2 22. Increased lethargy, opens eyes to name. Chest x-ray performed last night reporting CHF with larger, increased pleural effusion on the right side, possible right lower lobe pneumonia.Maintained on Lasix and dobutamine drips. 02/09/2020 Maintained on valproic acid.lactulose initiated yesterday, as a trial for possible cirrhosis contributing to encephalopathy, currently no change in sensorium. Positive stooling , residuals increasing, staff unable to advance tube feeds; maintained at 20 MLS per hour with goal of 65. Sedation remains on hold. Repeat CT pending. Patient grimaces/tightens eyes to noxious stimuli. Ventilator dependent, maintained on FiO2 40%/+5 of PEEP. Mucous plugging, suctioning pale yellow sputum secretions.chest x-ray reporting stable moderate right and trace left pleural effusions with associated right-sided airspace disease/atelectasis. Telemetry V paced. Continues on Levophed and lidocaine drips. Received vitamin K yesterday for elevated INR, down to 3.7. Maintained on Zosyn as per infectious disease. Afebrile, WBC trending down. Previously unable to tolerate dialysis, tolerated ultrafiltration yesterday and scheduled again for today. Objective - Vital Signs Vital signs: Vital Signs Temp 98.2 F 02/09/20 08:00 Pulse 50 L 02/09/20 11:51 Resp 18 02/09/20 10:45 BP 121/43 05/22/20 10:45 Pulse Ox 100 02/09/20 10:45 Intake & Output 02/08/20 02/09/20 02/09/20 18:59 06:59 18:59 Intake Total 783.517 624.065 320 Output Total 2060 50 11 Balance -1276.483 574.065 309 Intake: IV 440 440 260 Piperacillin-Tazobactam 3 100 100 100 .375 gm In Sodium Chloride 0.9% 100 ml @ 25 mls/hr IVPB Q12HR [facility] Rx #:[id number] Sodium Chloride 0.9% 1, 240 240 60 000 ml @ 20 mls/hr IV . Q24H ENRI[facility] Rx#:[id number] Valproate Sodium 250 mg 100 100 100 In Sodium Chloride 0.9% 100 ml @ 100 mls/hr IVPB Q8HR [facility] Rx#:[id number] Intake, IV Titration 13.517 54.065 Amount Norepinephrine 32 mg In 13.517 54.065 Sodium Chloride 0.9% 218 ml @ 0.3 MCG/KG/MIN 13. 458 mls/hr IV .[id number] ENRI[facility] Rx#:[id number] Tube Feeding 240 100 60 Other 90 30 Output: Urine 60 50 11 Hemodialysis 1999 Other: Voiding Method Indwelling Catheter Indwelling Catheter # Bowel Movements 1 1 ABP, PAP, CO, CI - Last Documented Arterial Blood Pressure 157/39 - Exam PHYSICAL EXAM: VITAL SIGNS: As above GENERAL: Lying in bed, ventilator dependent. Grimaces to noxious stimuli HEENT: Conjunctivae normal. eyes normal. Positive gag and corneal reflexes. NECK: No JVD. No thyroid enlargement. No LNs CARDIOVASCULAR: S1, S2 regular.systolic murmur RESPIRATION: bilateral bases diminished, occasional fine bibasilar rales. No rhonchi, no wheezing ABDOMEN: Soft, distended, no masses palpable, no guarding, no rigidity, positive bowel sounds LEGS: Positive edema, NERVOUS SYSTEM: Difficult to assess, currently not following commands, responding to noxious stimuli. - Labs CBC & Chem 7: 02/09/20 04:25 02/09/20 04:25 Labs: Abnormal Lab Results - Last 24 Hours (Table) 02/08/20 02/08/20 02/09/20 Range/Units 17:15 17:49 00:07 WBC (3.8-10.6) k/uL RBC (4.30-5.90) m/uL Hgb (13.0-17.5) gm/dL Hct (39.0-53.0) % RDW (11.5-15.5) % PT (9.0-12.0) sec INR (<1.2) Sodium (137-145) mmol/L Carbon Dioxide (22-30) mmol/L BUN (9-20) mg/dL Creatinine (0.66-1.25) mg/dL Glucose (74-99) mg/dL POC Glucose (mg/dL) 179 H 171 H 160 H (75-99) mg/dL Calcium (8.4-10.2) mg/dL 02/09/20 02/09/20 02/09/20 Range/Units 04:25 04:25 04:25 WBC 14.3 H (3.8-10.6) k/uL RBC 3.45 L (4.30-5.90) m/uL Hgb 10.1 L (13.0-17.5) gm/dL Hct 32.3 L (39.0-53.0) % RDW 17.1 H (11.5-15.5) % PT 36.4 H (9.0-12.0) sec INR 3.7 H (<1.2) Sodium 135 L (137-145) mmol/L Carbon Dioxide 18 L (22-30) mmol/L BUN 92 H (9-20) mg/dL Creatinine 5.90 H (0.66-1.25) mg/dL Glucose 174 H (74-99) mg/dL POC Glucose (mg/dL) (75-99) mg/dL Calcium 7.4 L (8.4-10.2) mg/dL 02/09/20 Range/Units 06:05 WBC (3.8-10.6) k/uL RBC (4.30-5.90) m/uL Hgb (13.0-17.5) gm/dL Hct (39.0-53.0) % RDW (11.5-15.5) % PT (9.0-12.0) sec INR (<1.2) Sodium (137-145) mmol/L Carbon Dioxide (22-30) mmol/L BUN (9-20) mg/dL Creatinine (0.66-1.25) mg/dL Glucose (74-99) mg/dL POC Glucose (mg/dL) 110 H (75-99) mg/dL Calcium (8.4-10.2) mg/dL Assessment and Plan Assessment: Acute metabolic encephalopathy, multifactorial. Possible anoxic brain injury, F/U CT pending. Neurology following. Status post cardiopulmonary arrest with V. fib, maintained on lidocaine drip Diffuse cerebral dysfunction with periodic lateralized epileptiform discharges over right hemisphere per EEG, on valproic acid Sepsis with septic shock with multiple system organ failure secondary to the above. Pressor dependent. Aspiration pneumonia Acute hypoxic respiratory failure, multifactorial, ventilator dependent Acute on chronic systolic heart failure exacerbation, EF 20-25% bilateral pleural effusions, moderate on the right, stable per chest x-ray Bilateral basal atelectasis Upper GI bleed with NG tube drainage coffee-ground emesis HyperCoagulopathy,Coumadin on hold, status post vitamin K Nonsustained V. tach Chronic atrial fibrillation Moderate aortic stenosis Severe mitral regurgitation Severe tricuspid regurgitation Acute on chronic renal failure stage 4. Acute secondary to ATN related to cardiorenal syndrome. Anemia of chronic kidney disease Diabetes mellitus, currently controlled Hypertension Dyslipidemia Acute right lower extremity cellulitis COPD Plan: Continue on current medication regime ,monitoring and symptomatic treatment. Strict aspiration precautions. ICU management as per net application support specialist . Multiple consults. F/U brain CT pending. Prognosis guarded given multiple complex medical issues. The impression and plan of care has been dictated as directed. : I performed a history and examination of this patient, discussed the same with the dictator. I agree with the dictator's note ,documented as a scribe. Any additional findings or plans will be noted.
[2020-02-09 13:29] LABS: Glucose,Whole Blood 157 mg/dL (75-99)
[2020-02-09 14:36] LABS: Allen Test Performed? YES
--- NOTE | 2020-02-09 14:46 | P.PN ---
Subjective Progress Note Date: 02/09/20 (Critical care time 35 minutes) Principal diagnosis: Metabolic encephalopathy/altered mental status Status post cardiopulmonary arrest Intermittent runs of V. tach Aspiration pneumonia Acute hypoxic respiratory failure Acute on chronic renal failure Upper GI bleed/coffee-ground emesis Gastric distention Acute on chronic heart failure related to systolic heart failure Left foot with inflammation involving toes Bilateral pleural effusion Bilateral basal atelectasis COPD without exacerbation Severe leg uncontrolled diabetes with chronic complication with worsening Chronic atrial fibrillation Coagulopathy with elevated PT/INR, Coumadin is on hold Stage IV chronic renal failure February 09, 2020, patient seen eval examined during the rounds labs reviewed medic ations reviewed care plan discussed with the staff at length patient remains poorly responsive , only Corneal Reflexion Very Weak Gag Reflex Patient Remains Intubated and Ventilator Setting Includes Assist Control with 16 Breathing about 20, Tidal Volume 600, HEENT of 5, Oxygen Is 40%, Peak Air Pressures Present, Chest X-Ray Reviewed Shows Right-Sided Pleural Effusion and Right-Sided Infiltrate Stable, Patient Is Due for a CAT Scan Patient Has Multiple EEG Shows Wide Complex Wave Pattern, Could Not Tolerate This Therapy for Now High Residuals, Patient Is Undergoing Hemodialysis Which Is Third Dialysis in the in the row, blood pressure remains labile, she remains on levo fed 7 mics with lidocaine drip, patient remains on the bradycardic, 02/08/2020, patient seen eval examined during the rounds labs reviewed medications reviewed care plan discussed, patient the appears to be developing some coagulopathy due to poor liver functions small dose of vitamin K given, hemodynamically patient's stable but continued to require vasopressors to have a adequate blood pressure currently patient had a dialysis second dialysis today, tolerated very well, however patient remains poorly responsive off of propofol and need For sedation for last 3 days, ventilator remains stable with assist control rate of 16 breathing about 20 to, tidal volume is 600 PEEP of 5, oxygen is 40% now, patient to feed is to be reinitiated, white cell count is 13,000 hemoglobin and hematocrit stable, arterial blood gas stable, x overall stable with the ET tube as well as the line, right basal atelectasis small right-sided pleural effusion not much change, he has some gag and corneal reflexes now, 2 L of fluid has been removed today during dialysis levo fed drip is down to 5 mics 02/07/2020, patient seen eval reexamined during the rounds labs reviewed medications reviewed radiographic studies reviewed as well patient continues to get worsening of pleural effusion requiring emergent dialysis, currently patient is undergoing dialysis 1 L of fluid removed, patient is on 0.1 of levo fed drip which is up from yesterday, patient is off of sedation with propofol for almost 2 days, mental status still compromised patient not breaking up with the sternal rub likely metabolic encephalopathy neurology is also following, when setting includes assist control rate of 16 breathing about 20, tidal volume 600, PEEP is is 5, oxygen is down to 40%, oxygen and oxygenation air entry is better situational 100% patient remains afebrile rest or secretions are minimal, Keofeed is on hold patient has been on Reglan to figure will be started later on once dialysis is over, cardiovascular point patient remains on lidocaine drip, he is on amiodarone oral/through the NG-tube, white cell count is up to 16,000, creatinine is up to 6.43 predialysis 02/06/2020, patient seen eval examined during the rounds labs reviewed me dications reviewed care plan discussed with the staff at length, propofol has been discontinued since last night patient remains unresponsive, neurology service has been following computed tomography scan of the head has been ordered, EKG repeat is pending, pulmonary-quiñones have patient has been doing better remains afebrile no significant respiratory secretions are seen FiO2 is down to 40% remains on PEEP of 10 and tidal volume of 500 rate of 16 breathing about 20-24, we can safely bring down the PEEP to 5 now, chest x-ray reviewed bilateral interstitial Petrin is present but now patient appears to be developing bilateral pleural effusion, dialysis is not performed today patient remains on 16 mics of levo fed, remains on broad-spectrum antibiotics, no significant arrhythmias noted, renal function continued to go up, patient to feed is on hold due to high residuals will start Reglan and reattempt in next 24 hours 02/05/2020, patient seen eval reexamined during her medication was resumed and continue breathing over the ventilator, current setting include assist control rate of 16 breathing about 20-24, tidal volume is 500, PEEP is 10, FiO2 is down to 40% now, heart rhythm remains in flutter with paced rhythm bradycardic about 45-50, patient remained on lidocaine drip, the amiodarone has been changed to oral, for hemodynamic support patient remains on 18 mics of levo fed, however it's down from 30 mics from this morning, less cyanosis in hand and toes noted, cultures have been negative, patient is tolerating tube feed well, chest x-ray shows stability, patient remains on broad-spectrum antibiotics for the diabetic foot ulcer and as well as a right-sided aspiration pneumonia on cephapirin Vanco and Flagyl, patient could not tolerate dialysis today due to fluctuation in bloo d pressure and rhythm, will reattempt tomorrow patient is definitely not ready for weaning critical care time 35 minutes 02/04/2020, patient seen and evaluated examined during the round remains on full ventilator support currently on assist control 16, tidal Volume of 500, 10 of PEEP and 50% oxygen, ABGs are stable, chest x-ray revealed stable, continue show dense right-sided infiltrate, but overall is stable, patient is intermittently regarding runs of V. tach, extra dose of amiodarone has been given, cardiovascular services following, patient is on 20 mics of levo fed, Keofeed is stable, patient has discoloration of fingers and toes, due to vasoconstriction related to the vasopressors, A-line and central line has been working labs reviewed, overall given the irritable nature of myocardium long-term prognosis is poor patient remains a full code was discussed cord issue with the family as per request of hospital staff, patient overall appears to not tolerate the CPR or shock in the event need arise, critical care time 35 minutes 02/03/2020, patient seen and evaluated examined during the rounds sedated with propofol drip about 30 mics patient is on full vent support, hypoxia Signi ficantly worse after V. fib cardiac arrest have been earlier this morning, patient has been intubated, chest x-ray reviewed, patient is on amiodarone drip, status post ACLS protocol, revived, patient underwent a hemodialysis catheter this morning, currently dialysis is undergoing plan is to remove a liter, patient is on levo fed drip, urgently needed central line and A-line because of poor peripheral IV axis and risk of externalization of vasopressors, still have coffee-ground material coming but severity appears to improve gastric secretions light and now patient is on Armaan Keofeed can be started, patient has third spacing and tissue edema with ecchymosis and bruising upper extremity, also has diabetic foot ulcer, patient remains on broad-spectrum antibiotic with Cefepime, we'll add vancomycin with pharmacy to dose, vent setting currently include assist control with PEEP of 10 FiO2 is 60% oxygen saturations were dropping into high 80s FiO2 increase to 70%, critical care time spent 35 minutes 02/02/2020, patient seen eval examined during the rounds labs reviewed medications reviewed, patient remains on dobutamine drip off of dopamine drip he is on Lasix 50 mg an hour, patient due to gastric distention was the having coffee-ground and Mrs. however hemoglobin remained stable white cell count went up to 15,000, patient INR isn't therapeutic range now,, patient has been on prot on pump inhibitor, a computed tomography scan of the abdominal and pelvis has been performed which has been reviewed no gastric outlet obstruction has been noted but stomach may be slightly distended due to air, arterial blood gas have been reviewed adequate ventilation and oxygenation is present x-ray however suggestive of the fluid overload with bilateral pleural effusion not much change, renal functions remains on the higher level, patient likely will need hemodialysis with volume removal, care plan discussed with the staff further recommendations pending plan of care as per clinical response of the patient 02/01/2020, patient seen eval examined during the rounds, he remains afebrile, hemodynamic status stable however the blood pressure continue be on the low side oxygen saturation is 98% on 2 L, patient remains on breathing treatments and broad-spectrum antibiotics, do vitamin have been on hold due to tachycardia however remains on Lasix drip, Coumadin remains on hold recommend to check on a daily basis and resume Coumadin once is okay from cardiovascular services 01/31/2020, patient seen eval examined during the rounds has history of oxygen breathing status stable, saturation is 90-93%, patient has been on dobutamine and dopamine and Lasix strip, INR is coming down, BUN/creatinine slightly up This is a 79-year-old male who was seen evaluated examined on third floor, pat ient came into the hospital with progressive shortness of breath associated with last 1-2 weeks with increased swelling progressively from the 4 extremities to mid abdominal level in addition patient appears to be having diabetic foot infection with edema and redness in the toes as well in the left foot, patient is arousable but tired on 3 L oxygen, patient is to be started on Lasix drip along with dobutamine drip, patient has a history of COPD chronic systolic heart failure chronic atrial fibrillation diabetes along with chronic renal failure stage IV, currently patient is on WelChol dilators in the form of DuoNeb, ID service has been requested for antibiotics, his chest x-ray consistent with congestive heart failure fluid overload and pulmonary edema in addition to his interstitial edema and small bilateral pleural effusion Objective - Vital Signs Vital signs: Vital Signs Temp 98.3 F 02/09/20 12:00 Pulse 49 L 02/09/20 13:30 Resp 17 02/09/20 13:30 BP 121/44 02/09/20 13:30 Pulse Ox 99 02/09/20 13:30 Intake & Output 02/08/20 02/09/20 02/09/20 18:59 06:59 18:59 Intake Total 783.517 624.065 563.388 Output Total 2060 50 16 Balance -1276.483 574.065 547.388 Weight 104 kg Intake: IV 440 440 420 Piperacillin-Tazobactam 3 100 100 100 .375 gm In Sodium Chloride 0.9% 100 ml @ 25 mls/hr IVPB Q12HR [facility] Rx #:[id number] Sodium Chloride 0.9% 1, 240 240 120 000 ml @ 20 mls/hr IV . Q24H [facility] Rx#:[id number] Valproate Sodium 250 mg 100 100 200 In Sodium Chloride 0.9% 100 ml @ 100 mls/hr IVPB Q8HR [facility] Rx#:[id number] Intake, IV Titration 13.517 54.065 23.388 Amount Norepinephrine 32 mg In 13.517 54.065 23.388 Sodium Chloride 0.9% 218 ml @ 0.3 MCG/KG/MIN 13. 458 mls/hr IV .[id number] [facility] Rx#:[id number] Tube Feeding 240 100 120 Other 90 30 Output: Urine 60 50 16 Hemodialysis 1999 Other: Voiding Method Indwelling Catheter Indwelling Catheter # Bowel Movements 1 1 ABP, PAP, CO, CI - Last Documented Arterial Blood Pressure 159/38 - Exam Intubated sedated on full respiratory support diffuse ecchymosis edema and third spacing - Constitutional General appearance: disheveled, mild distress, morbidly obese, unresponsive to deep sternal rub - Neck Neck: Supple Carotids: bilateral: upstroke normal - Respiratory Respiratory: bilateral: diminished, dullness, rales bronchial breath sounds especially on the right side - Cardiovascular Rhythm: regular Heart sounds: normal: S1, S2 - Gastrointestinal General gastrointestinal: normal bowel sounds, soft - Musculoskeletal Musculoskeletal: generalized weakness, strength equal bilaterally - Psychiatric Psychiatric: Sedated on full ventilator support Edema involving the lower extremity up to the abdominal level, in addition left diabetic foot involvement of the toes - Labs CBC & Chem 7: 02/09/20 04:25 02/09/20 04:25 Labs: Abnormal Lab Results - Last 24 Hours (Table) 02/08/20 02/08/20 02/09/20 Range/Units 17:15 17:49 00:07 WBC (3.8-10.6) k/uL RBC (4.30-5.90) m/uL Hgb (13.0-17.5) gm/dL Hct (39.0-53.0) % RDW (11.5-15.5) % PT (9.0-12.0) sec INR (<1.2) Sodium (137-145) mmol/L Carbon Dioxide (22-30) mmol/L BUN (9-20) mg/dL Creatinine (0.66-1.25) mg/dL Glucose (74-99) mg/dL POC Glucose (mg/dL) 179 H 171 H 160 H (75-99) mg/dL Calcium (8.4-10.2) mg/dL 02/09/20 02/09/20 02/09/20 Range/Units 04:25 04:25 04:25 WBC 14.3 H (3.8-10.6) k/uL RBC 3.45 L (4.30-5.90) m/uL Hgb 10.1 L (13.0-17.5) gm/dL Hct 32.3 L (39.0-53.0) % RDW 17.1 H (11.5-15.5) % PT 36.4 H (9.0-12.0) sec INR 3.7 H (<1.2) Sodium 135 L (137-145) mmol/L Carbon Dioxide 18 L (22-30) mmol/L BUN 92 H (9-20) mg/dL Creatinine 5.90 H (0.66-1.25) mg/dL Glucose 174 H (74-99) mg/dL POC Glucose (mg/dL) (75-99) mg/dL Calcium 7.4 L (8.4-10.2) mg/dL 02/09/20 02/09/20 Range/Units 06:05 13:27 WBC (3.8-10.6) k/uL RBC (4.30-5.90) m/uL Hgb (13.0-17.5) gm/dL Hct (39.0-53.0) % RDW (11.5-15.5) % PT (9.0-12.0) sec INR (<1.2) Sodium (137-145) mmol/L Carbon Dioxide (22-30) mmol/L BUN (9-20) mg/dL Creatinine (0.66-1.25) mg/dL Glucose (74-99) mg/dL POC Glucose (mg/dL) 110 H 157 H (75-99) mg/dL Calcium (8.4-10.2) mg/dL Assessment and Plan Assessment: Altered mental status encephalopathy/coma likely related to propofol but component of anoxic injury to brain cannot be excluded now off of propofol for 4 days anoxic diffuse injury to brain appears to be more likely Status post cardiopulmonary arrest Intermittent runs of V. tach rhythm appears to be more organized now on lidocaine and amiodarone Aspiration pneumonia Status post V. fib cardiac arrest Acute renal failure mostly appears to be cardiorenal Upper GI coffee-ground emesis likely due to stress ulceration patient has been on Protonix Acute on chronic hypoxic respiratory failure Acute on chronic heart failure related to systolic heart failure Left foot with inflammation involving toes Bilateral pleural effusion Bilateral basal atelectasis COPD without exacerbation Severe leg uncontrolled diabetes with chronic complication with worsening Chronic atrial fibrillation Coagulopathy with elevated PT/INR, Coumadin is on hold Stage IV chronic renal failure baseline Plan: We'll continue to provide supportive care, patient probably will require tracheostomy and PEG tube insertion if not being able to wean from ventilator Continue to attempt hemodialysis as planned, currently undergoing a hemodialysis neurology is following Titrate oxygen down as tolerated Titrate down the vasopressors as tolerated Continue to monitor patient closely in ICU Replace electrolytes Continue amiodarone Continue lidocaine Continue broad-spectrum antibiotics with Flagyl and vancomycin and cefapime Continue ventilator adjustment as needed and tolerated Tube feed on hold for now will start Reglan then reattempt in next 24 hours Hypothermia protocol not available in this institution Continue bronchodilators Labs and chest x-ray have been ordered for tomorrow As far as pleural effusion is concerned will monitor and observe no plans for t horacentesis Monitor renal functions and electrolytes closely Continue to hold Coumadin for now monitor observe PT/INR closely, small dose of vitamin K being given as patient is getting more cooperative And risk of spontaneous breathing is Further recommendations pending plan of care as per clinical response of patient, long-term prognosis poor, family have requested DO NOT RESUSCITATE CODE STATUS Time with Patient: Greater than 30
--- NOTE | 2020-02-09 16:49 | CONS ---
CONSULTATION An 79-year-old gentleman who is admitted to ICU with respiratory failure, secondary to acute exacerbation of chronic systolic heart failure. The patient is still on the vent and he is on lidocaine secondary to ventricular tachycardia. Has had anoxic brain injury. PHYSICAL EXAM: Heart rate is 50 beats per minute, blood pressure is 120/40, respiratory rate is 18. Chest exam reveals diminished air entry at the bases. Heart exam reveals first and second heart sounds. No gallop. Exam of extremities reveals bilateral 1+ edema. Peripheral pulses are diminished. Patient is on Cordarone 200 b.i.d., Coreg 3.125 b.i.d. Imdur, Zaroxolyn 5 b.i.d., Levophed. INR is 3.7. Patient is off Coumadin. ASSESSMENT: 1. Vent requiring respiratory failure secondary to congestive heart failure. 2. Acute exacerbation of chronic systolic heart failure. 3. Ventricular tachycardia. 4. Anoxic brain injury. PLAN: I will continue the oral amiodarone, nebulizers, Coreg 3.125 b.i.d., Imdur, IV lidocaine. Patient has not had further runs of ventricular tachycardia, we can stop the IV lidocaine at this time and discontinue the amiodarone. We can stop the lidocaine tomorrow. MMODL / IJN: [id number] /
--- NOTE | 2020-02-09 17:05 | PN ---
PROGRESS NOTE DATE OF SERVICE: 02/09/2020 REASON FOR FOLLOWUP: Aspiration pneumonia. INTERVAL HISTORY: The patient is currently afebrile. Patient undergoing hemodialysis. Hemodynamically stable. Not on pressor support. FiO2 is currently 40%. No other changes reported by the nursing staff. PHYSICAL EXAMINATION: Blood pressure 120/44 with a pulse of 49, temperature 98, he is 100% on 40% FiO2. General description is an elderly male, intubated on the vent. RESPIRATORY SYSTEM: Unlabored breathing, clear to auscultation anteriorly. HEART: S1, S2. Regular rate and rhythm. ABDOMEN: Soft, no distention. LABS: Hemoglobin is 10.1, white count 14.3, BUN of 92, creatinine 5.0. Sputum with Corynebacterium. DIAGNOSTIC IMPRESSION AND PLAN: Patient with acute respiratory failure which is likely multifactorial. This patient did have a component of pneumonia, likely aspiration etiology. The patient is covered with Zosyn to continue and monitor clinical course closely. Continue supportive care. MMODL / IJN: [id number] /
--- NOTE | 2020-02-09 17:56 | DS ---
DISCHARGE SUMMARY ADDENDUM TO DISCHARGE SUMMARY: Severe sepsis with septic shock. MMODL / IJN: [id number] /
[2020-02-09] MEDS ORDERED: WARFARIN 0.5 MG TAB PO ONE (18:00)
[2020-02-09] MEDS: LIDOCAINE-D5W PMX 2G/250ML 2,000 MG in DEXTROSE/WATER 1 250ML.BAG IV SCH (19:13)
[2020-02-09 19:19] LABS: Glucose,Whole Blood 131 mg/dL (75-99)
--- NOTE | 2020-02-09 19:39 | P.PN ---
Subjective Progress Note Date: 02/09/20 Principal diagnosis: Anoxic brain injury subjective: No acute events reported overnight. Still no spontaneous eye opening or attempt to breathe over the vent. No spontaneous movements noted by nursing staff. No clinical seizures reported. Spoke with and family is moving towards considering comfort care. Objective - Vital Signs Vital signs: Vital Signs Temp 98.2 F 02/09/20 17:42 Pulse 49 L 02/09/20 19:15 Resp 5 L 02/09/20 19:15 BP 118/43 02/09/20 19:15 Pulse Ox 98 02/09/20 19:15 Intake & Output 02/09/20 02/09/20 02/10/20 06:59 18:59 06:59 Intake Total 624.065 771.395 303.884 Output Total 50 4036 5 Balance 574.065 -3264.605 298.884 Weight 104 kg Intake: IV 440 620 120 Piperacillin-Tazobactam 3 100 100 .375 gm In Sodium Chloride 0.9% 100 ml @ 25 mls/hr IVPB Q12HR [facility] Rx #:[id number] Sodium Chloride 0.9% 1, 240 220 20 000 ml @ 20 mls/hr IV . Q24H [facility] Rx#:[id number] Valproate Sodium 250 mg 100 100 In Sodium Chloride 0.9% 100 ml @ 100 mls/hr IVPB Q6HR [facility] Rx#:[id number] Valproate Sodium 250 mg 100 200 In Sodium Chloride 0.9% 100 ml @ 100 mls/hr IVPB Q8HR [facility] Rx#:[id number] Intake, IV Titration 54.065 31.395 183.884 Amount Lidocaine-D5w Pmx 2G/ 174.875 250Ml 2,000 mg In Dextrose/Water 1 250ml. bag @ 1 MG/MIN 7.5 mls/hr IV .Q24H [facility] Rx#: [id number] Norepinephrine 32 mg In 54.065 31.395 9.009 Sodium Chloride 0.9% 218 ml @ 0.3 MCG/KG/MIN 13. 458 mls/hr IV .[id number] [facility] Rx#:[id number] Tube Feeding 100 120 Other 30 Output: Urine 50 36 5 Hemodialysis 1999 Other: Voiding Method Indwelling Catheter Indwelling Catheter # Bowel Movements 1 ABP, PAP, CO, CI - Last Documented Arterial Blood Pressure 146/40 - Exam Patient remains ventilated no spontaneous eye opening. Grimacing occurs when endotracheal tube is adjusted. Pupils: 1 mm fix nonreactive to light. Cranial nerves: No facial asymmetry. Doll's eye maneuvers intact. Gag reflex is present. Motor examination no spontaneous movements noted. No withdrawal to tactile stimulation. Pulses: Radial pedal pulses appear equal and symmetric. Extremities: Severe bruising noted of the left upper extremity. Edema noted in the upper and lower extremities, nonpitting. - Labs CBC & Chem 7: 02/09/20 04:25 02/09/20 04:25 Labs: Abnormal Lab Results - Last 24 Hours (Table) 02/09/20 02/09/20 02/09/20 Range/Units 00:07 04:25 04:25 WBC 14.3 H (3.8-10.6) k/uL RBC 3.45 L (4.30-5.90) m/uL Hgb 10.1 L (13.0-17.5) gm/dL Hct 32.3 L (39.0-53.0) % RDW 17.1 H (11.5-15.5) % PT 36.4 H (9.0-12.0) sec INR 3.7 H (<1.2) Sodium (137-145) mmol/L Carbon Dioxide (22-30) mmol/L BUN (9-20) mg/dL Creatinine (0.66-1.25) mg/dL Glucose (74-99) mg/dL POC Glucose (mg/dL) 160 H (75-99) mg/dL Calcium (8.4-10.2) mg/dL 02/09/20 02/09/20 02/09/20 Range/Units 04:25 06:05 13:27 WBC (3.8-10.6) k/uL RBC (4.30-5.90) m/uL Hgb (13.0-17.5) gm/dL Hct (39.0-53.0) % RDW (11.5-15.5) % PT (9.0-12.0) sec INR (<1.2) Sodium 135 L (137-145) mmol/L Carbon Dioxide 18 L (22-30) mmol/L BUN 92 H (9-20) mg/dL Creatinine 5.90 H (0.66-1.25) mg/dL Glucose 174 H (74-99) mg/dL POC Glucose (mg/dL) 110 H 157 H (75-99) mg/dL Calcium 7.4 L (8.4-10.2) mg/dL 02/09/20 Range/Units 19:17 WBC (3.8-10.6) k/uL RBC (4.30-5.90) m/uL Hgb (13.0-17.5) gm/dL Hct (39.0-53.0) % RDW (11.5-15.5) % PT (9.0-12.0) sec INR (<1.2) Sodium (137-145) mmol/L Carbon Dioxide (22-30) mmol/L BUN (9-20) mg/dL Creatinine (0.66-1.25) mg/dL Glucose (74-99) mg/dL POC Glucose (mg/dL) 131 H (75-99) mg/dL Calcium (8.4-10.2) mg/dL Assessment and Plan Assessment: This is an 79-year-old gentleman who has significant stroke risk factors including diabetes hypertension. He has cardiopulmonary disease involving COPD and congestive heart failure, atrial fib with pacemaker. 13 days prior to admission he was admitted for increasing dyspnea. On this admission was found that he does have per progressive congestive heart failure. On day 4 he had a cardiac arrest in the evening requiring defibrillation and now in sepsis with shock. Due to his unresponsiveness on the ventilator despite being off sedation there is concern for anoxic brain injury/Neurology re-consulted. Today's examination : No significant change. Patient still has a very diminished gag reflex and grimaces when the intent to tracheal tube this move. Otherwise no spontaneous eye movement. No purposeful withdrawal or even movement of the extremities. Summary: 1. Initial admission for increasing dyspnea/ ams, 2NDARY TO metabolic encephalopathy 2. Cardiac arrest on hospital day 4. Severe sepsis with shock. 3. Patient not responding to stimulation off sedation requires continued intubation 4. EEG shows generalized diffuse cerebral dysfunction with periodic lateralized epileptiform discharges over the right hemisphere 5. End-stage renal disease. Patient unable to tolerate dialysis at this time. 6. Severe sepsis with shock 7. Stroke risk factors: Diabetes. Hypertension. Cardiovascular disease. 8. Glascow coma scale today increased from -5 based on now the patient having slight arousal and spontaneous eye opening to both tactile and auditory stimulation. Plan: 1. Arrange for family team meeting with to discuss long-term prognosis. 2. Arrange for follow up computed tomography scan of the head on Wednesday morning. 3. Continue with valproic acid 250 mg IV every QID 4. Follow up EEG on Wednesday 5. Computed tomography scan in the a.m. This patient's prognosis remains very poor. Further recommendations will be made as this case evolves. Thank you for allowing me to participate in the care of your patient. Total time spent examining patient reviewing records and discussing prognosis with spouse and plan with nurse: 25 minutes Lazara Abraham M.D. Board certified in neurology and sleep medicine
[2020-02-09] MEDS: TAMSULOSIN 0.4 MG CAP.ER.24H PO SCH (21:15)
[2020-02-09] MEDS: MONTELUKAST 10 MG TAB PO SCH (21:15)
[2020-02-09 23:50] LABS: Glucose,Whole Blood 156 mg/dL (75-99)
[2020-02-10 04:48] LABS: Anisocytosis Slight; HCT 29.6 % (39.0-53.0); HGB 9.1 gm/dL (13.0-17.5); Hypochromasia Marked; MCH 28.6 pg (25.0-35.0); MCHC 30.7 g/dL (31.0-37.0); MCV 93.4 fL (80.0-100.0); Platelet Count 112 k/uL (150-450); RBC 3.17 m/uL (4.30-5.90); RDW 17.1 % (11.5-15.5); WBC 10.4 k/uL (3.8-10.6)
[2020-02-10 04:54] LABS: Prothrombin Time 19.3 sec (9.0-12.0)
[2020-02-10] MEDS: LIDOCAINE-D5W PMX 2G/250ML 2,000 MG in DEXTROSE/WATER 1 250ML.BAG IV SCH (05:02)
[2020-02-10 05:13] LABS: Calcium 7.6 mg/dL (8.4-10.2); Potassium 3.8 mmol/L (3.5-5.1)
[2020-02-10] MEDS ORDERED: Potassium Replacement Protocol 1 EACH MISC MISCELLANE PRN (05:57)
[2020-02-10] MEDS ORDERED: POTASSIUM BICARBONATE/CIT AC 20 MEQ TABLET.EFF NG-TUBE SCH (06:00)
[2020-02-10 06:35] LABS: Glucose,Whole Blood 123 mg/dL (75-99)
[2020-02-10] MEDS: INSULIN ASPART (NovoLOG) 100 UNIT/ML VIAL SQ SCH ×3 (06:37→17:34)
[2020-02-10] MEDS: VALPROATE SODIUM 250 MG in SODIUM CHLORIDE 0.9% 100 ML IVPB SCH ×3 (06:41→17:31)
--- NOTE | 2020-02-10 07:18 | XR ---
EXAMINATION TYPE: XR chest 1V DATE OF EXAM: 02/10/2020 COMPARISON: Prior chest x-ray 02/09/2020 HISTORY: Shortness of breath TECHNIQUE: Single frontal view of the chest is obtained. FINDINGS: Findings are similar. Endotracheal tube and NG tube, right jugular central venous catheter are overlying appropriate positions. There is a generator in left pectoral region, leads are present in the right atrium and ventricle. Heart remains enlarged. Pleural parenchymal changes are similar, bibasilar increased density obscures the hemidiaphragms. No evident pneumothorax. The aorta is dense. IMPRESSION: Correlate for pneumonia versus edema, atelectasis, associated effusion
[2020-02-10] MEDS: IPRATROPIUM-ALBUTEROL 3 ML NEB INHALATION SCH ×4 (07:43→19:20)
[2020-02-10] MEDS: CHLORHEXIDINE GLUCONATE 15 ML CUP MUCOUS MEM SCH ×2 (08:23→21:23)
[2020-02-10] MEDS: SENNOSIDES 8.6 MG TAB PO SCH ×2 (08:23→21:25)
[2020-02-10] MEDS: PIPERACILLIN-TAZOBACTAM 3.375 GM in SODIUM CHLORIDE 0.9% 100 ML IVPB SCH ×2 (08:23→21:24)
[2020-02-10] MEDS: AMIODARONE 200 MG TAB PO SCH ×2 (08:23→21:24)
[2020-02-10] MEDS: METOLAZONE 5 MG TAB PO SCH (08:24)
[2020-02-10] MEDS: CARBIDOPA-LEVODOPA 10-100 MG 1 EACH TAB PO SCH ×2 (08:24→21:24)
[2020-02-10] MEDS: ISOSORBIDE MONONITRATE ER 15 MG TAB PO SCH (08:25)
[2020-02-10] MEDS: CARVEDILOL 3.125 MG TAB PO SCH ×2 (08:25→21:24)
[2020-02-10] MEDS: PANTOPRAZOLE 40 MG/10 ML VIAL IVP SCH ×2 (08:25→21:24)
--- NOTE | 2020-02-10 10:37 | P.PN ---
Subjective Patient is seen in follow-up for end-stage renal disease. He was started on hemodialysis this admission. Currently intubated. On 40% FiO2. On low-dose Levophed. Tolerating hemodialysis well. Vital signs are stable. On low-dose Levophed. General: The patient appeared well nourished and normally developed. HEENT: Head exam is unremarkable. Neck is without jugular venous distension. NG tube noted. LUNGS: Breath sounds decreased. HEART: Rate and Rhythm are regular. ABDOMEN: Soft, nontender. EXTREMITITES: 1+ edema. Objective - Vital Signs Vital signs: Vital Signs Temp 97.6 F 02/10/20 08:00 Pulse 49 L 02/10/20 10:00 Resp 15 02/10/20 10:00 BP 125/55 02/10/20 10:00 Pulse Ox 100 02/10/20 10:00 Intake & Output 02/09/20 02/10/20 02/10/20 18:59 06:59 18:59 Intake Total 771.395 866.511 46 Output Total 4036 72 5 Balance -3264.605 794.511 41 Weight 104 kg 99.4 kg Intake: IV 620 593 46 Artline flush 33 6 Piperacillin-Tazobactam 3 100 100 .375 gm In Sodium Chloride 0.9% 100 ml @ 25 mls/hr IVPB Q12HR [facility] Rx #:[id number] Sodium Chloride 0.9% 1, 220 160 40 000 ml @ 20 mls/hr IV . Q24H [facility] Rx#:[id number] Valproate Sodium 250 mg 100 300 In Sodium Chloride 0.9% 100 ml @ 100 mls/hr IVPB Q6HR [facility] Rx#:[id number] Valproate Sodium 250 mg 200 In Sodium Chloride 0.9% 100 ml @ 100 mls/hr IVPB Q8HR [facility] Rx#:[id number] Intake, IV Titration 31.395 273.511 Amount Lidocaine-D5w Pmx 2G/ 248.500 250Ml 2,000 mg In Dextrose/Water 1 250ml. bag @ 1 MG/MIN 7.5 mls/hr IV .Q24H [facility] Rx#: [id number] Norepinephrine 32 mg In 31.395 25.011 Sodium Chloride 0.9% 218 ml @ 0.3 MCG/KG/MIN 13. 458 mls/hr IV .[id number] [facility] Rx#:[id number] Tube Feeding 120 0 0 Output: Urine 36 72 5 Hemodialysis 1999 Other: Voiding Method Indwelling Catheter Indwelling Catheter Indwelling Catheter ABP, PAP, CO, CI - Last Documented Arterial Blood Pressure 107/39 - Labs CBC & Chem 7: 02/10/20 04:30 02/10/20 04:30 Labs: Abnormal Lab Results - Last 24 Hours (Table) 02/09/20 02/09/20 02/09/20 Range/Units 13:27 19:17 23:49 RBC (4.30-5.90) m/uL Hgb (13.0-17.5) gm/dL Hct (39.0-53.0) % MCHC (31.0-37.0) g/dL RDW (11.5-15.5) % Plt Count (150-450) k/uL PT (9.0-12.0) sec INR (<1.2) Carbon Dioxide (22-30) mmol/L BUN (9-20) mg/dL Creatinine (0.66-1.25) mg/dL Glucose (74-99) mg/dL POC Glucose (mg/dL) 157 H 131 H 156 H (75-99) mg/dL Calcium (8.4-10.2) mg/dL 02/10/20 02/10/20 02/10/20 Range/Units 04:30 04:30 04:30 RBC 3.17 L (4.30-5.90) m/uL Hgb 9.1 L (13.0-17.5) gm/dL Hct 29.6 L (39.0-53.0) % MCHC 30.7 L (31.0-37.0) g/dL RDW 17.1 H (11.5-15.5) % Plt Count 112 L (150-450) k/uL PT 19.3 H (9.0-12.0) sec INR 2.0 H (<1.2) Carbon Dioxide 21 L (22-30) mmol/L BUN 74 H (9-20) mg/dL Creatinine 5.57 H (0.66-1.25) mg/dL Glucose 134 H (74-99) mg/dL POC Glucose (mg/dL) (75-99) mg/dL Calcium 7.6 L (8.4-10.2) mg/dL 02/10/20 Range/Units 06:33 RBC (4.30-5.90) m/uL Hgb (13.0-17.5) gm/dL Hct (39.0-53.0) % MCHC (31.0-37.0) g/dL RDW (11.5-15.5) % Plt Count (150-450) k/uL PT (9.0-12.0) sec INR (<1.2) Carbon Dioxide (22-30) mmol/L BUN (9-20) mg/dL Creatinine (0.66-1.25) mg/dL Glucose (74-99) mg/dL POC Glucose (mg/dL) 123 H (75-99) mg/dL Calcium (8.4-10.2) mg/dL Assessment and Plan Plan: Assessment: 1. End-stage renal disease secondary to cardiorenal syndrome and diabetic kidney disease started on hemodialysis this admission. 2. Status post cardiac arrest maintained on lidocaine drip. 3. Acute on chronic systolic CHF with ejection fraction of 25-30% with moderate aortic stenosis, moderate to severe mitral regurgitation, severe tricuspid regurgitation and severe pulmonary hypertension. 4. Volume overload. Improving with diuresis. 5. Insulin-dependent diabetes mellitus. 6. Chronic kidney disease mineral bone disease maintained on calcitriol. 7. Anemia of chronic kidney disease maintained on Aranesp. Severe iron deficiency noted. 8. Aspiration pneumonia maintain on antibiotics. Plan: Currently seen while undergoing hemodialysis. Plan for another hemodialysis treatment tomorrow. Wean vasopressors. Discontinue metolazone.
[2020-02-10 12:06] LABS: Glucose,Whole Blood 125 mg/dL (75-99)
--- NOTE | 2020-02-10 13:28 | P.PN ---
Subjective Progress Note Date: 02/10/20 Principal diagnosis: Metabolic encephalopathy/altered mental status Status post cardiopulmonary arrest Intermittent runs of V. tach Aspiration pneumonia Acute hypoxic respiratory failure Acute on chronic renal failure Upper GI bleed/coffee-ground emesis Gastric distention Acute on chronic heart failure related to systolic heart failure Left foot with inflammation involving toes Bilateral pleural effusion Bilateral basal atelectasis COPD without exacerbation Severe leg uncontrolled diabetes with chronic complication with worsening Chronic atrial fibrillation Coagulopathy with elevated PT/INR, Coumadin is on hold Stage IV chronic renal failure 02/10/2020, patient seen eval examined during the rounds labs reviewed medications reviewed care plan discussed with the staff at length, mental status slightly appeared to be better as deep sternal rub and pressure patient didn't open his eyes which is a change compared to last 24-48 hours, otherwise patient remains somnolent and lethargic unresponsive, he is off of levo fed drip currently stable hemodynamics heart rate is 60, paced rhythm, he is still on the lidocaine drip, he had an dialysis earlier this morning tolerated very well 2 L of fluid has been removed, x-ray I reviewed his stable, when setting remains stable can assist control rate of 16 breathing about 20, PEEP is 5, tidal volume is 500, peak airway pressure about 20-24, patient remains on broad-spectrum antibiotics, renal functions are stable on dialysis, third spacing infiltrate however it's infiltrate, we'll continue to monitor clinical course patient might require a PEG tube as well as tracheostomy next week, will start tube feeding 10 mL an hour and follow clinical course closely labs reviewed chest x-ray reviewed, patient is resumed on Coumadin, INR today is 2 critical care time spent 35 minutes February 09, 2020, patient seen eval examined during the rounds labs reviewed medications reviewed care plan discussed with the staff at length patient remains poorly responsive , only Corneal Reflexion Very Weak Gag Reflex Patient Remains Intubated and Ventilator Setting Includes Assist Control with 16 Breathing about 20, Tidal Volume 600, HEENT of 5, Oxygen Is 40%, Peak Air Pressures Present, Chest X-Ray Reviewed Shows Right-Sided Pleural Effusion and Right-Sided Infiltrate Stable, Patient Is Due for a CAT Scan Patient Has Multiple EEG Shows Wide Complex Wave Pattern, Could Not Tolerate This Therapy for Now High Residuals, Patient Is Undergoing Hemodialysis Which Is Third Dialysis in the in the row, blood pressure remains labile, she remains on levo fed 7 mics with lidocaine drip, patient remains on the bradycardic, 02/08/2020, patient seen eval examined during the rounds labs reviewed medications reviewed care plan discussed, patient the appears to be developing some coagulopathy due to poor liver functions small dose of vitamin K given, hemodynamically patient's stable but continued to require vasopressors to have a adequate blood pressure currently patient had a dialysis second dialysis today, tolerated very well, however patient remains poorly responsive off of propofol and need For sedation for last 3 days, ventilator remains stable with assist control rate of 16 breathing about 20 to, tidal volume is 600 PEEP of 5, oxygen is 40% now, patient to feed is to be reinitiated, white cell count is 13,000 hemoglobin and hematocrit stable, arterial blood gas stable, x overall stable with the ET tube as well as the line, right basal atelectasis small right-sided pleural effusion not much change, he has some gag and corneal reflexes now, 2 L of fluid has been removed today during dialysis levo fed drip is down to 5 mics 02/07/2020, patient seen eval reexamined during the rounds labs reviewed medica tions reviewed radiographic studies reviewed as well patient continues to get worsening of pleural effusion requiring emergent dialysis, currently patient is undergoing dialysis 1 L of fluid removed, patient is on 0.1 of levo fed drip which is up from yesterday, patient is off of sedation with propofol for almost 2 days, mental status still compromised patient not breaking up with the sternal rub likely metabolic encephalopathy neurology is also following, when setting includes assist control rate of 16 breathing about 20, tidal volume 600, PEEP is is 5, oxygen is down to 40%, oxygen and oxygenation air entry is better situational 100% patient remains afebrile rest or secretions are minimal, Keofeed is on hold patient has been on Reglan to figure will be started later on once dialysis is over, cardiovascular point patient remains on lidocaine drip, he is on amiodarone oral/through the NG-tube, white cell count is up to 16,000, creatinine is up to 6.43 predialysis 02/06/2020, patient seen eval examined during the rounds labs reviewed medications reviewed care plan discussed with the staff at length, propofol has been discontinued since last night patient remains unresponsive, neurology service has been following computed tomography scan of the head has been ordered, EKG repeat is pending, pulmonary-quiñones have patient has been doing better remains afebrile no significant respiratory secretions are seen FiO2 is down to 40% remains on PEEP of 10 and tidal volume of 500 rate of 16 breathing about 20-24, we can safely bring down the PEEP to 5 now, chest x-ray reviewed bilateral interstitial Petrin is present but now patient appears to be developing bilateral pleural effusion, dialysis is not performed today patient remains on 16 mics of levo fed, remains on broad-spectrum antibiotics, no significant arrhythmias noted, renal function continued to go up, patient to feed is on hold due to high residuals will start Reglan and reattempt in next 24 hours 02/05/2020, patient seen eval reexamined during her medication was resumed and continue breathing over the ventilator, current setting include assist control rate of 16 breathing about 20-24, tidal volume is 500, PEEP is 10, FiO2 is down to 40% now, heart rhythm remains in flutter with paced rhythm bradycardic about 45-50, patient remained on lidocaine drip, the amiodarone has been changed to oral, for hemodynamic support patient remains on 18 mics of levo fed, however it's down from 30 mics from this morning, less cyanosis in hand and toes noted, cultures have been negative, patient is tolerating tube feed well, chest x-ray shows stability, patient remains on broad-spectrum antibiotics for the diabetic foot ulcer and as well as a right-sided aspiration pneumonia on cephapirin Vanco and Flagyl, patient could not tolerate dialysis today due to fluctuation in blood pressure and rhythm, will reattempt tomorrow patient is definitely not ready for weaning critical care time 35 minutes 02/04/2020, patient seen and evaluated examined during the round remains on full ventilator support currently on assist control 16, tidal Volume of 500, 10 of PEEP and 50% oxygen, ABGs are stable, chest x-ray revealed stable, continue show dense right-sided infiltrate, but overall is stable, patient is intermittently regarding runs of V. tach, extra dose of amiodarone has been given, cardiovascular services following, patient is on 20 mics of levo fed, Keofeed is stable, patient has discoloration of fingers and toes, due to vasoconstriction related to the vasopressors, A-line and central line has been working labs rev iewed, overall given the irritable nature of myocardium long-term prognosis is poor patient remains a full code was discussed cord issue with the family as per request of hospital staff, patient overall appears to not tolerate the CPR or shock in the event need arise, critical care time 35 minutes 02/03/2020, patient seen and evaluated examined during the rounds sedated with propofol drip about 30 mics patient is on full vent support, hypoxia Significantly worse after V. fib cardiac arrest have been earlier this morning, patient has been intubated, chest x-ray reviewed, patient is on amiodarone drip, status post ACLS protocol, revived, patient underwent a hemodialysis catheter this morning, currently dialysis is undergoing plan is to remove a liter, patient is on levo fed drip, urgently needed central line and A-line because of poor peripheral IV axis and risk of externalization of vasopressors, still have coffee-ground material coming but severity appears to improve gastric secretions light and now patient is on Armaan Keofeed can be started, patient has third spacing and tissue edema with ecchymosis and bruising upper extremity, also has diabetic foot ulcer, patient remains on broad-spectrum antibiotic with Cefepime, we'll add vancomycin with pharmacy to dose, vent setting currently include assist control with PEEP of 10 FiO2 is 60% oxygen saturations were dropping into high 80s FiO2 increase to 70%, critical care time spent 35 minutes 02/02/2020, patient seen eval examined during the rounds labs reviewed medications reviewed, patient remains on dobutamine drip off of dopamine drip he is on Lasix 50 mg an hour, patient due to gastric distention was the having coffee-ground and Mrs. however hemoglobin remained stable white cell count went up to 15,000, patient INR isn't therapeutic range now,, patient has been on proton pump inhibitor, a computed tomography scan of the abdominal and pelvis has been performed which has been reviewed no gastric outlet obstruction has been noted but stomach may be slightly distended due to air, arterial blood gas have been reviewed adequate ventilation and oxygenation is present x-ray however suggestive of the fluid overload with bilateral pleural effusion not much change, renal functions remains on the higher level, patient likely will need hemodialysis with volume removal, care plan discussed with the staff further recommendations pending plan of care as per clinical response of the patient 02/01/2020, patient seen eval examined during the rounds, he remains afebrile, hemodynamic status stable however the blood pressure continue be on the low side oxygen saturation is 98% on 2 L, patient remains on breathing treatments and broad-spectrum antibiotics, do vitamin have been on hold due to tachycardia however remains on Lasix drip, Coumadin remains on hold recommend to check on a daily basis and resume Coumadin once is okay from cardiovascular services 01/31/2020, patient seen eval examined during the rounds has history of oxygen breathing status stable, saturation is 90-93%, patient has been on dobutamine and dopamine and Lasix strip, INR is coming down, BUN/creatinine slightly up This is a 79-year-old male who was seen evaluated examined on third floor, patient came into the hospital with progressive shortness of breath associated with last 1-2 weeks with increased swelling progressively from the 4 extremities to mid abdominal level in addition patient appears to be having diabetic foot infection with edema and redness in the toes as well in the left foot, patient is arousable but tired on 3 L oxygen, patient is to be started on Lasix drip along with dobutamine drip, patient has a history of COPD chronic systolic heart failure chronic atrial fibrillation diabetes along with chronic renal failure stage IV, currently patient is on WelChol dilators in the form of DuoNeb, ID service has been requested for antibiotics, his chest x-ray consistent with congestive heart failure fluid overload and pulmonary edema in addition to his interstitial edema and small bilateral pleural effusion Objective - Vital Signs Vital signs: Vital Signs Temp 97.9 F 02/10/20 12:00 Pulse 63 02/10/20 12:00 Resp 10 L 02/10/20 12:00 BP 112/55 02/10/20 12:00 Pulse Ox 100 02/10/20 12:00 Intake & Output 02/09/20 02/10/20 02/10/20 18:59 06:59 18:59 Intake Total 771.395 866.511 238 Output Total 4036 72 1760 Balance -3112.233 600.954 -0513 Weight 104 kg 99.4 kg Intake: IV 620 593 238 Artline flush 33 18 Piperacillin-Tazobactam 3 100 100 100 .375 gm In Sodium Chloride 0.9% 100 ml @ 25 mls/hr IVPB Q12HR [facility] Rx #:[id number] Sodium Chloride 0.9% 1, 220 160 120 000 ml @ 20 mls/hr IV . Q24H [facility] Rx#:[id number] Valproate Sodium 250 mg 100 300 In Sodium Chloride 0.9% 100 ml @ 100 mls/hr IVPB Q6HR [facility] Rx#:[id number] Valproate Sodium 250 mg 200 In Sodium Chloride 0.9% 100 ml @ 100 mls/hr IVPB Q8HR [facility] Rx#:[id number] Intake, IV Titration 31.395 273.511 Amount Lidocaine-D5w Pmx 2G/ 248.500 250Ml 2,000 mg In Dextrose/Water 1 250ml. bag @ 1 MG/MIN 7.5 mls/hr IV .Q24H [facility] Rx#: [id number] Norepinephrine 32 mg In 31.395 25.011 Sodium Chloride 0.9% 218 ml @ 0.3 MCG/KG/MIN 13. 458 mls/hr IV .[id number] [facility] Rx#:[id number] Tube Feeding 120 0 0 Output: Urine 36 72 5 Hemodialysis 1999 Other: Voiding Method Indwelling Catheter Indwelling Catheter Indwelling Catheter ABP, PAP, CO, CI - Last Documented Arterial Blood Pressure 141/45 - Exam Intubated sedated on full respiratory support diffuse ecchymosis edema and third spacing - Constitutional General appearance: disheveled, mild distress, morbidly obese, unresponsive to deep sternal rub - Neck Neck: Supple Carotids: bilateral: upstroke normal - Respiratory Respiratory: bilateral: diminished, dullness, rales bronchial breath sounds especially on the right side - Cardiovascular Rhythm: regular Heart sounds: normal: S1, S2 - Gastrointestinal General gastrointestinal: normal bowel sounds, soft - Musculoskeletal Musculoskeletal: generalized weakness, strength equal bilaterally - Psychiatric Psychiatric: Sedated on full ventilator support Edema involving the lower extremity up to the abdominal level, in addition left diabetic foot involvement of the toes - Labs CBC & Chem 7: 02/10/20 04:30 02/10/20 04:30 Labs: Abnormal Lab Results - Last 24 Hours (Table) 02/09/20 02/09/20 02/09/20 Range/Units 13:27 19:17 23:49 RBC (4.30-5.90) m/uL Hgb (13.0-17.5) gm/dL Hct (39.0-53.0) % MCHC (31.0-37.0) g/dL RDW (11.5-15.5) % Plt Count (150-450) k/uL PT (9.0-12.0) sec INR (<1.2) Carbon Dioxide (22-30) mmol/L BUN (9-20) mg/dL Creatinine (0.66-1.25) mg/dL Glucose (74-99) mg/dL POC Glucose (mg/dL) 157 H 131 H 156 H (75-99) mg/dL Calcium (8.4-10.2) mg/dL 02/10/20 02/10/20 02/10/20 Range/Units 04:30 04:30 04:30 RBC 3.17 L (4.30-5.90) m/uL Hgb 9.1 L (13.0-17.5) gm/dL Hct 29.6 L (39.0-53.0) % MCHC 30.7 L (31.0-37.0) g/dL RDW 17.1 H (11.5-15.5) % Plt Count 112 L (150-450) k/uL PT 19.3 H (9.0-12.0) sec INR 2.0 H (<1.2) Carbon Dioxide 21 L (22-30) mmol/L BUN 74 H (9-20) mg/dL Creatinine 5.57 H (0.66-1.25) mg/dL Glucose 134 H (74-99) mg/dL POC Glucose (mg/dL) (75-99) mg/dL Calcium 7.6 L (8.4-10.2) mg/dL 02/10/20 02/10/20 Range/Units 06:33 12:04 RBC (4.30-5.90) m/uL Hgb (13.0-17.5) gm/dL Hct (39.0-53.0) % MCHC (31.0-37.0) g/dL RDW (11.5-15.5) % Plt Count (150-450) k/uL PT (9.0-12.0) sec INR (<1.2) Carbon Dioxide (22-30) mmol/L BUN (9-20) mg/dL Creatinine (0.66-1.25) mg/dL Glucose (74-99) mg/dL POC Glucose (mg/dL) 123 H 125 H (75-99) mg/dL Calcium (8.4-10.2) mg/dL Assessment and Plan Assessment: Altered mental status encephalopathy/coma likely related component of anoxic injury to brain cannot be excluded now off of propofol for 5 days anoxic diffuse injury to brain appears to be more likely Status post cardiopulmonary arrest Intermittent runs of V. tach rhythm appears to be more organized now on lidocaine and amiodarone Aspiration pneumonia Status post V. fib cardiac arrest Acute on chronic renal failure mostly appears to be cardiorenal, now on dialysis continuously daily basis Upper GI coffee-ground emesis likely due to stress ulceration patient has been on Protonix, stable Acute on chronic hypoxic respiratory failure Acute on chronic heart failure related to systolic heart failure Left foot with inflammation involving toes Bilateral pleural effusion Bilateral basal atelectasis COPD without exacerbation Severe leg uncontrolled diabetes with chronic complication with worsening Chronic atrial fibrillation Coagulopathy with elevated PT/INR, Coumadin is on hold Stage IV chronic renal failure baseline Plan: We'll continue to provide supportive care, patient probably will require tracheostomy and PEG tube insertion if not being able to wean from ventilator, we'll discuss with the family next week Continue to attempt hemodialysis as planned, currently undergoing a hemodialysis neurology is following Resume to tube feed Titrate oxygen down as tolerated Titrate down the vasopressors as tolerated Continue to monitor patient closely in ICU Replace electrolytes Continue oral amiodarone Continue IV lidocaine Continue broad-spectrum antibiotics with Flagyl and vancomycin and cefapime Continue ventilator adjustment as needed and tolerated Hypothermia protocol not available in this institution Continue bronchodilators Labs and chest x-ray have been ordered for tomorrow As far as pleural effusion is concerned will monitor and observe no plans for thoracentesis Monitor renal functions and electrolytes closely Continue Coumadin for now monitor observe PT/INR closely, keep it between 2 and 3 Further recommendations pending plan of care as per clinical response of patient, long-term prognosis poor, patient is DO NOT RESUSCITATE CODE STATUS per family request Time with Patient: Greater than 30
--- NOTE | 2020-02-10 14:25 | CT ---
EXAMINATION TYPE: CT brain wo con DATE OF EXAM: 02/10/2020 COMPARISON: Prior CT brain 02/06/2020 HISTORY: Follow up abnormal head CT CT DLP: 1099.4 mGycm Automated exposure control for dose reduction was used. CT brain performed utilizing departmental pro tocol FINDINGS: No significant interval change. There is cortical atrophy. Periventricular white matter patchy low at tenuation again noted. No hemorrhage or hydrocephalus. Cerebrovascular calcifications are present. In flammatory change noted within the left maxillary sinus greater than right. NG tube is present. IMPRESSION: STABLE FINDINGS. AGE-RELATED CHANGES OF ATROPHY AND PROBABLE CHRONIC SMALL VESSEL ISCHEMIA. SINUS DIS EASE.
--- NOTE | 2020-02-10 16:04 | P.PN ---
Subjective Progress Note Date: 02/10/20 The patient is seen in neurological follow-up via teleneurology on February 10, 2020. Per RN patient has been lifting his arms spontaneously. There is no evidence of seizure activity. Objective - Vital Signs Vital signs: Vital Signs Temp 97.9 F 02/10/20 12:00 Pulse 63 02/10/20 12:00 Resp 10 L 02/10/20 12:00 BP 112/55 02/10/20 12:00 Pulse Ox 100 02/10/20 12:00 Intake & Output 02/09/20 02/10/20 02/10/20 18:59 06:59 18:59 Intake Total 771.395 866.511 238 Output Total 4036 72 2005 Balance -3524.605 891.700 -6175 Weight 104 kg 99.4 kg Intake: IV 620 593 238 Artline flush 33 18 Piperacillin-Tazobactam 3 100 100 100 .375 gm In Sodium Chloride 0.9% 100 ml @ 25 mls/hr IVPB Q12HR [facility] Rx #:[id number] Sodium Chloride 0.9% 1, 220 160 120 000 ml @ 20 mls/hr IV . Q24H [facility] Rx#:[id number] Valproate Sodium 250 mg 100 300 In Sodium Chloride 0.9% 100 ml @ 100 mls/hr IVPB Q6HR [facility] Rx#:[id number] Valproate Sodium 250 mg 200 In Sodium Chloride 0.9% 100 ml @ 100 mls/hr IVPB Q8HR [facility] Rx#:[id number] Intake, IV Titration 31.395 273.511 Amount Lidocaine-D5w Pmx 2G/ 248.500 250Ml 2,000 mg In Dextrose/Water 1 250ml. bag @ 1 MG/MIN 7.5 mls/hr IV .Q24H [facility] Rx#: [id number] Norepinephrine 32 mg In 31.395 25.011 Sodium Chloride 0.9% 218 ml @ 0.3 MCG/KG/MIN 13. 458 mls/hr IV .[id number] [facility] Rx#:[id number] Tube Feeding 120 0 0 Output: Urine 36 72 5 Hemodialysis 1999 1999 Other 1999 Other: Voiding Method Indwelling Catheter Indwelling Catheter Indwelling Catheter ABP, PAP, CO, CI - Last Documented Arterial Blood Pressure 141/45 - Exam General: The patient is reclining in the bed. He is intubated. He is breathing over the vent. There is no sedation on board. Neurological exam Mental status: The patient is intubated. He is nonverbal. He does not respond to verbal commands. There is no grimace or withdrawal in response to noxious stimulation. Cranial nerves: Pupils are pinpoint, midline and reactive. Corneal reflexes are present bilaterally right > Left. Gag and cough reflexes are present. Motor: There is no obvious movement at this time. Extremities are flaccid. - Labs CBC & Chem 7: 02/10/20 04:30 02/10/20 04:30 Labs: Abnormal Lab Results - Last 24 Hours (Table) 02/09/20 02/09/20 02/10/20 Range/Units 19:17 23:49 04:30 RBC (4.30-5.90) m/uL Hgb (13.0-17.5) gm/dL Hct (39.0-53.0) % MCHC (31.0-37.0) g/dL RDW (11.5-15.5) % Plt Count (150-450) k/uL PT 19.3 H (9.0-12.0) sec INR 2.0 H (<1.2) Carbon Dioxide (22-30) mmol/L BUN (9-20) mg/dL Creatinine (0.66-1.25) mg/dL Glucose (74-99) mg/dL POC Glucose (mg/dL) 131 H 156 H (75-99) mg/dL Calcium (8.4-10.2) mg/dL 02/10/20 02/10/20 02/10/20 Range/Units 04:30 04:30 06:33 RBC 3.17 L (4.30-5.90) m/uL Hgb 9.1 L (13.0-17.5) gm/dL Hct 29.6 L (39.0-53.0) % MCHC 30.7 L (31.0-37.0) g/dL RDW 17.1 H (11.5-15.5) % Plt Count 112 L (150-450) k/uL PT (9.0-12.0) sec INR (<1.2) Carbon Dioxide 21 L (22-30) mmol/L BUN 74 H (9-20) mg/dL Creatinine 5.57 H (0.66-1.25) mg/dL Glucose 134 H (74-99) mg/dL POC Glucose (mg/dL) 123 H (75-99) mg/dL Calcium 7.6 L (8.4-10.2) mg/dL 02/10/20 Range/Units 12:04 RBC (4.30-5.90) m/uL Hgb (13.0-17.5) gm/dL Hct (39.0-53.0) % MCHC (31.0-37.0) g/dL RDW (11.5-15.5) % Plt Count (150-450) k/uL PT (9.0-12.0) sec INR (<1.2) Carbon Dioxide (22-30) mmol/L BUN (9-20) mg/dL Creatinine (0.66-1.25) mg/dL Glucose (74-99) mg/dL POC Glucose (mg/dL) 125 H (75-99) mg/dL Calcium (8.4-10.2) mg/dL Assessment and Plan Assessment: Impressions: 1. Anoxic encephalopathy-Status post cardiac arrest 2. Seizure-abnormal EEG Plan: Plan: 1. Continue current antiepileptic medications 2. Continue supportive care 3. CT scan this a.m. negative for acute infarct 4. Repeat EEG is ordered for 02/12/2020 Time with Patient: Less than 30 (spent 25 minutes with the patient via teleneurology)
[2020-02-10] MEDS: SODIUM CHLORIDE 0.9% 1,000 ML IV SCH (16:17)
[2020-02-10 17:11] LABS: Glucose,Whole Blood 126 mg/dL (75-99)
[2020-02-10] MEDS ORDERED: WARFARIN 2.5 MG TAB PO ONE (18:00)
--- NOTE | 2020-02-10 18:13 | PN ---
PROGRESS NOTE DATE OF SERVICE: 02/10/2020 REASON FOR FOLLOWUP: Aspiration pneumonia. INTERVAL HISTORY: Patient is currently afebrile. Patient is hemodynamically stable. FiO2 is currently 40%. No other changes reported. PHYSICAL EXAMINATION: Blood pressure 115/56, pulse of 74, temperature 98. He is 98% on 40% FiO2. General description is an elderly male, intubated on the vent. Respiratory system: Unlabored breathing, clear to auscultation anteriorly. Heart S1, S2. Regular rate and rhythm. Abdomen soft. No distention or rigidity. LABS: Hemoglobin 9.8, white count 10.4, BUN of 74, creatinine 5.57. DIAGNOSTIC IMPRESSION AND PLAN: Patient with acute respiratory failure which is multifactorial with a component of pneumonia, likely aspiration etiology. Patient is covered with Zosyn to continue and will monitor clinical course closely. Continue supportive care. MMODL / IJN: [id number] /
--- NOTE | 2020-02-10 21:18 | PN ---
PROGRESS NOTE DATE OF SERVICE: 02/10/2020 I am covering for Dr. Bynum. This 79-year-old gentleman was admitted with CHF acute exacerbation, with EF 25-30 percent has acute hypoxic respiratory failure. Patient mechanically intubated. Currently the patient is extubated, but despite the lack of sedation, the patient is basically unresponsive. Patient also had cardiac arrest secondary intermittent runs of ventricular tachycardia. The patient also had aspiration pneumonia. Patient being closely monitored monitor. Dr. Ann is following the patient closely. Neurology is also following the patient. The most recent CT scan showed stable findings but age- related changes and a chest x-ray which was done today which is personally reviewed by me showed significant lesion on the right side of the chest cavity on the chest. PAST MEDICAL HISTORY: Reviewed. REVIEW OF SYMPTOMS: Could not be taken. CURRENT MEDICATIONS: 1. DuoNeb q.i.d. and p.r.n. 2. Cordarone. 3. Rocaltrol. 4. Sinemet. 5. Coreg. 6. Peridex. 7. Ancef. 8. NovoLog. 9. Imdur. 10.Lidocaine. 11.Replacement medications. 12.Norepinephrine. 13.Zosyn 3.375 IV q.6 hours. 14.Senokot. 15.Flomax. 16.Valproic acid. 17.Doses reviewed. PHYSICAL EXAM: Patient is alert and oriented times three. Pulse 61. Blood pressure 115/42, respirations 16, temperature 98 degrees, pulse ox 98% on 40% FiO2. HEENT: Conjunctivae normal. NECK: No JVD. CARDIOVASCULAR. S1, S2 muffled. RESPIRATORY: Breath sounds diminished in the bases. Bilateral scattered rhonchi and crackles. ABDOMEN: Soft, nontender. LEGS are no edema. No swelling. CENTRAL NERVOUS SYSTEM: Diffusely weak. LAB STUDIES: WBC 10.2, hemoglobin 9.1, sodium 130, potassium 3.8, creatinine 5.57. ASSESSMENT: 1. Congestive heart failure exacerbation, with acute on chronic systolic dysfunction with acute hypoxic respiratory failure. 2. Acute metabolic encephalopathy multifactorial. Rule out anoxic brain injury. 3. Acute cardiorespiratory secondary to ventricular fibrillation. 4. Diffuse cerebral dysfunction on the EEG. 5. Sepsis, septic shock, multifactorial. 6. Possible bilateral pneumonia, possible aspiration pneumonia, right more than the left, acute hypoxic respiratory failure. 7. Congestive heart failure with acute on chronic systolic dysfunction, ejection fraction 20 to 25%. 8. Bilateral pleural effusion. 9. Bilateral basilar atelectasis. 10.History of gastrointestinal bleed. 11.Hypercoagulopathy. 12.Nonsustained ventricular tachycardia. 13.Chronic atrial fibrillation. 14.Moderate aortic stenosis. 15.Severe mitral regurgitation. 16.Severe tricuspid regurgitation. 17.Acute on chronic renal failure stage 4. 18.Diabetes mellitus type 2. 19.Hypertension. 20.Hyperlipidemia. 21.Acute right lower extremity cellulitis. 22.Chronic obstructive pulmonary disease. 23.Anemia, normocytic anemia of chronic disease. 24.Thrombocytopenia. 25.NO CODE, NO CPR, NO VENT. RECOMMENDATIONS AND DISCUSSION: In this 79-year-old gentleman who presented with multiple complex medical issues, we will monitor the patient closely, continue the current medications, management and symptomatic treatment. Otherwise multiple consultants are following the patient closely. At this time, I would recommend continue with current medications and as mentioned earlier the patient is not responsive even after stopping sedation. Repeat CT scan was negative for any acute abnormality. EEG has been scheduled. Repeat EEG scheduled and neurology is following the patient closely as well. The overall prognosis remains extremely guarded. We will continue the current medications as mentioned and further recommendations to follow. MMODL / IJN: [id number] /
[2020-02-10] MEDS: MONTELUKAST 10 MG TAB PO SCH (21:23)
[2020-02-10] MEDS: TAMSULOSIN 0.4 MG CAP.ER.24H PO SCH (21:24)
[2020-02-10 23:56] LABS: Glucose,Whole Blood 119 mg/dL (75-99)
[2020-02-11] MEDS: VALPROATE SODIUM 250 MG in SODIUM CHLORIDE 0.9% 100 ML IVPB SCH ×4 (00:01→18:41)
[2020-02-11] MEDS: NOREPINEPHRINE 32 MG in SODIUM CHLORIDE 0.9% 218 ML IV SCH ×2 (00:02→12:29)
[2020-02-11] MEDS: INSULIN ASPART (NovoLOG) 100 UNIT/ML VIAL SQ SCH ×4 (00:04→18:36)
[2020-02-11 04:47] LABS: Anisocytosis Slight; HCT 28.9 % (39.0-53.0); HGB 8.8 gm/dL (13.0-17.5); Hypochromasia Marked; MCH 29.1 pg (25.0-35.0); MCHC 30.5 g/dL (31.0-37.0); MCV 95.1 fL (80.0-100.0); Mean Platelet Volume 10.4; Platelet Count 110 k/uL (150-450); RBC 3.04 m/uL (4.30-5.90); RDW 17.1 % (11.5-15.5); WBC 8.4 k/uL (3.8-10.6)
[2020-02-11 04:53] LABS: INR 1.7 (<1.2); Prothrombin Time 16.6 sec (9.0-12.0)
[2020-02-11 04:57] LABS: Calcium 7.6 mg/dL (8.4-10.2); Potassium 3.8 mmol/L (3.5-5.1)
[2020-02-11] MEDS ORDERED: Potassium Replacement Protocol 1 EACH MISC MISCELLANE PRN (05:51)
[2020-02-11] MEDS ORDERED: POTASSIUM BICARBONATE/CIT AC 20 MEQ TABLET.EFF NG-TUBE SCH (06:00)
[2020-02-11 06:13] LABS: Glucose,Whole Blood 119 mg/dL (75-99)
[2020-02-11] MEDS: IPRATROPIUM-ALBUTEROL 3 ML NEB INHALATION SCH ×4 (07:42→19:36)
--- NOTE | 2020-02-11 07:48 | XR ---
EXAMINATION TYPE: XR chest 1V DATE OF EXAM: 02/11/2020 COMPARISON: 02/10/2020 HISTORY: Shortness of breath TECHNIQUE: Single frontal view of the chest is obtained. FINDINGS: Slight interval increase in degree of right-sided pleural effusion, now moderate with asso ciated right-sided airspace disease. Left pleural effusion is small with layering effect and associat ed left-sided airspace disease. Endotracheal and enteric tubes appear similar in position to the prio r. Enlarged cardiomediastinal silhouette with dual lead left-sided cardiac device. Right-sided centra l venous catheter remains in a similar position in the high right atrium. IMPRESSION: Slightly worsening pleural effusions, moderate on the right and small on the left with a ssociated bibasilar airspace disease, likely atelectasis. Stable lines and tubes.
[2020-02-11] MEDS: PANTOPRAZOLE 40 MG/10 ML VIAL IVP SCH ×2 (08:45→21:30)
[2020-02-11] MEDS: SENNOSIDES 8.6 MG TAB PO SCH ×2 (08:46→21:50)
[2020-02-11] MEDS: CARBIDOPA-LEVODOPA 10-100 MG 1 EACH TAB PO SCH ×2 (08:46→21:37)
[2020-02-11] MEDS: PIPERACILLIN-TAZOBACTAM 3.375 GM in SODIUM CHLORIDE 0.9% 100 ML IVPB SCH ×2 (08:46→21:31)
[2020-02-11] MEDS: CHLORHEXIDINE GLUCONATE 15 ML CUP MUCOUS MEM SCH ×2 (08:46→21:36)
[2020-02-11] MEDS ORDERED: HEPARIN SODIUM,PORCINE 5,000 UNIT/ML 1 ML VIAL ONE (09:00)
--- NOTE | 2020-02-11 10:51 | P.PN ---
Subjective Patient is seen in follow-up for end-stage renal disease. He was started on hemodialysis this admission. Currently intubated. On 40% FiO2. On low-dose Levophed. Tolerating hemodialysis well. Vital signs are stable. On low-dose Levophed. General: The patient appeared well nourished and normally developed. HEENT: Head exam is unremarkable. Neck is without jugular venous distension. NG tube noted. LUNGS: Breath sounds decreased. HEART: Rate and Rhythm are regular. ABDOMEN: Soft, nontender. EXTREMITITES: 1+ edema. Objective - Vital Signs Vital signs: Vital Signs Temp 97.9 F 02/11/20 08:00 Pulse 60 02/11/20 08:04 Resp 16 02/11/20 08:30 BP 108/47 02/11/20 08:30 Pulse Ox 100 02/11/20 08:30 Intake & Output 02/10/20 02/11/20 02/11/20 18:59 06:59 18:59 Intake Total 384.641 660.913 89 Output Total 2014 15 Balance -1630.359 630.913 74 Weight 99.4 kg Intake: IV 376 496 39 Artline flush 36 36 9 Piperacillin-Tazobactam 3 100 120 .375 gm In Sodium Chloride 0.9% 100 ml @ 25 mls/hr IVPB Q12HR [facility] Rx #:[id number] Sodium Chloride 0.9% 1, 240 140 30 000 ml @ 20 mls/hr IV . Q24H [facility] Rx#:[id number] Valproate Sodium 250 mg 200 In Sodium Chloride 0.9% 100 ml @ 100 mls/hr IVPB Q6HR [facility] Rx#:[id number] Intake, IV Titration 8.641 4.913 Amount Norepinephrine 32 mg In 8.641 4.913 Sodium Chloride 0.9% 218 ml @ 0.3 MCG/KG/MIN 13. 458 mls/hr IV .[id number] [facility] Rx#:[id number] Tube Feeding 0 100 50 Other 60 Output: Urine 15 30 15 Hemodialysis 2000 Other: Voiding Method Indwelling Catheter Indwelling Catheter Indwelling Catheter ABP, PAP, CO, CI - Last Documented Arterial Blood Pressure 139/39 - Labs CBC & Chem 7: 02/11/20 04:35 02/11/20 04:35 Labs: Abnormal Lab Results - Last 24 Hours (Table) 02/10/20 02/10/20 02/10/20 Range/Units 12:04 17:08 23:54 RBC (4.30-5.90) m/uL Hgb (13.0-17.5) gm/dL Hct (39.0-53.0) % MCHC (31.0-37.0) g/dL RDW (11.5-15.5) % Plt Count (150-450) k/uL PT (9.0-12.0) sec INR (<1.2) Carbon Dioxide (22-30) mmol/L BUN (9-20) mg/dL Creatinine (0.66-1.25) mg/dL Glucose (74-99) mg/dL POC Glucose (mg/dL) 125 H 126 H 119 H (75-99) mg/dL Calcium (8.4-10.2) mg/dL 02/11/20 02/11/20 02/11/20 Range/Units 04:35 04:35 04:35 RBC 3.04 L (4.30-5.90) m/uL Hgb 8.8 L (13.0-17.5) gm/dL Hct 28.9 L (39.0-53.0) % MCHC 30.5 L (31.0-37.0) g/dL RDW 17.1 H (11.5-15.5) % Plt Count 110 L (150-450) k/uL PT 16.6 H (9.0-12.0) sec INR 1.7 H (<1.2) Carbon Dioxide 21 L (22-30) mmol/L BUN 58 H (9-20) mg/dL Creatinine 4.78 H (0.66-1.25) mg/dL Glucose 121 H (74-99) mg/dL POC Glucose (mg/dL) (75-99) mg/dL Calcium 7.6 L (8.4-10.2) mg/dL 02/11/20 Range/Units 06:11 RBC (4.30-5.90) m/uL Hgb (13.0-17.5) gm/dL Hct (39.0-53.0) % MCHC (31.0-37.0) g/dL RDW (11.5-15.5) % Plt Count (150-450) k/uL PT (9.0-12.0) sec INR (<1.2) Carbon Dioxide (22-30) mmol/L BUN (9-20) mg/dL Creatinine (0.66-1.25) mg/dL Glucose (74-99) mg/dL POC Glucose (mg/dL) 119 H (75-99) mg/dL Calcium (8.4-10.2) mg/dL Assessment and Plan Plan: Assessment: 1. End-stage renal disease secondary to cardiorenal syndrome and diabetic kidney disease started on hemodialysis this admission. 2. Status post cardiac arrest maintained on lidocaine drip. 3. Acute on chronic systolic CHF with ejection fraction of 25-30% with moderate aortic stenosis, moderate to severe mitral regurgitation, severe tricuspid regurgitation and severe pulmonary hypertension. 4. Volume overload. Improving with diuresis. 5. Insulin-dependent diabetes mellitus. 6. Chronic kidney disease mineral bone disease maintained on calcitriol. 7. Anemia of chronic kidney disease maintained on Aranesp. Severe iron deficiency noted. 8. Aspiration pneumonia maintain on antibiotics. Sputum culture positive for C orynebacterium. Plan: Currently seen while undergoing hemodialysis. Plan for another hemodialysis treatment tomorrow. Wean vasopressors.
[2020-02-11 12:07] LABS: Glucose,Whole Blood 107 mg/dL (75-99)
[2020-02-11] MEDS: CARVEDILOL 3.125 MG TAB PO SCH ×2 (12:29→21:36)
[2020-02-11] MEDS: AMIODARONE 200 MG TAB PO SCH ×2 (12:29→21:36)
[2020-02-11] MEDS: ISOSORBIDE MONONITRATE ER 15 MG TAB PO SCH (12:30)
[2020-02-11] MEDS: SODIUM CHLORIDE 0.9% 1,000 ML IV SCH (12:40)
[2020-02-11 17:41] LABS: Glucose,Whole Blood 109 mg/dL (75-99)
[2020-02-11] MEDS ORDERED: WARFARIN 5 MG TAB PO ONE (18:00)
--- NOTE | 2020-02-11 19:20 | PN ---
PROGRESS NOTE I am covering for Dr. Bynum. DATE OF SERVICE: 02/11/2020 This 79-year-old gentleman who was admitted with congestive heart failure acute exacerbation, has only ejection fraction 20-30 percent. The patient also had acute hypoxic respiratory failure. The patient also had aspiration pneumonia. The patient also had concerns for reduced response, has anoxic brain injury and EEG is being planned tomorrow. Neurology following the patient closely. The most recent CT of the brain which was reviewed personally by me showed stable findings and chronic small- vessel ischemia as well. PAST MEDICAL HISTORY: Reviewed. REVIEW OF SYSTEMS: Could not be taken. CURRENT MEDICATIONS: Reviewed and include: 1. DuoNeb q.i.d. and p.r.n. 2. Cordarone 200 mg b.i.d. 3. Rocaltrol. 4. Sinemet. 5. Coreg. 6. Peridex. 7. Aranesp. 8. NovoLog scale. 9. Imdur. 10.P.r.n. medications. 11.Narcan. 12.Zosyn. 13.Levophed. 14.Senokot. 15.Flomax. 16.Valproic acid. 17.Coumadin. PHYSICAL EXAM: Patient is mechanically sedated. Pulse 64. Blood pressure 112/48, respirations 18, temp 97.6, pulse ox 99% on mechanical ventilation. Vent settings are noted. HEENT: Conjunctivae normal. NECK: No JVD. CARDIOVASCULAR: S1, S2 muffled. RESPIRATION: Breath sounds diminished in the bases. Bilateral scattered rhonchi and crackles. Expiratory wheezing also present. ABDOMEN: Soft, nontender. LEGS no edema. NERVOUS SYSTEM: Diffusely weak. LABS: WBC 8.2, hemoglobin is 8.8, sodium 139, potassium 3.8, creatinine is 4.78. ASSESSMENT: 1. Congestive heart failure acute exacerbation with acute on chronic systolic dysfunction with acute hypoxic respiratory failure on mechanical ventilation. 2. Acute metabolic encephalopathy multifactorial. Rule out anoxic brain injury. 3. Acute cardiorespiratory arrest secondary to ventricular fibrillation. 4. Diffuse cerebral dysfunction on the EEG. 5. Sepsis, septic shock, multifactorial. 6. Possible bilateral pneumonia possibly aspiration pneumonia, right more the left with acute hypoxic respiratory failure. 7. Congestive heart failure acute exacerbation acute on chronic systolic dysfunction ejection fraction 20% to 25%. 8. Bilateral pleural effusion. 9. Bilateral bibasilar atelectasis. 10.History of gastrointestinal bleed. 11.Hypercoagulopathy. 12.Nonsustained ventricular tachycardia. 13.Chronic atrial fibrillation. 14.Moderate aortic stenosis and severe mitral regurgitation. 15.Severe tricuspid regurgitation. 16.Acute on chronic renal failure stage 4. 17.Diabetes mellitus type 2. 18.Hypertension. 19.Hyperlipidemia. 20.Acute right lower extremity cellulitis. 21.Chronic obstructive pulmonary disease. 22.Anemia, normocytic anemia of chronic disease. 23.Thrombocytopenia. 24.NO CODE, NO CPR, NO VENT. RECOMMENDATIONS AND DISCUSSION: Recommend to continue current medication, continue to monitor. Symptomatic treatment. Otherwise at this time, I recommend continue the antibiotics. Chest x-ray was reviewed personally. Otherwise EEG is pending at this time. We will monitor the neuro status and creatinine very closely. Guarded prognosis. Further recommendations to follow. MMODL / IJN: [id number] /
--- NOTE | 2020-02-11 20:22 | P.PN ---
Subjective Progress Note Date: 02/11/20 (Critical care time 30 minutes) Principal diagnosis: Metabolic encephalopathy/altered mental status Status post cardiopulmonary arrest Intermittent runs of V. tach Aspiration pneumonia Acute hypoxic respiratory failure Acute on chronic renal failure Upper GI bleed/coffee-ground emesis Gastric distention Acute on chronic heart failure related to systolic heart failure Left foot with inflammation involving toes Bilateral pleural effusion Bilateral basal atelectasis COPD without exacerbation Severe leg uncontrolled diabetes with chronic complication with worsening Chronic atrial fibrillation Coagulopathy with elevated PT/INR, Coumadin is on hold Stage IV chronic renal failure 02/11/2020, patient seen eval examined during the rounds labs reviewed medicat ions reviewed patient does open his eyes with sternal rub however does not follow commands, hemodynamically stable off of levo fed drip off of lidocaine as well, patient remains on oral amiodarone, full ventilator support is being given, vent settings are assist control rate of 16 tidal volume of 600, 5 of PEEP and FiO2 is 40%, respiratory rate is 20-22, peak airway pressure are 24-25, patient had a dialysis successfully performed in 2 L of fluid has been removed, chest x-ray shows bilateral pleural effusion as well as interstitial edema, no globin is 8.8, labs showed BUN/creatinine 58/4.78, white cell count is 8.4, INR slightly better 1.7, patient is being planned for another dialysis tomorrow 02/10/2020, patient seen eval examined during the rounds labs reviewed medications reviewed care plan discussed with the staff at length, mental status slightly appeared to be better as deep sternal rub and pressure patient didn't open his eyes which is a change compared to last 24-48 hours, otherwise patient remains somnolent and lethargic unresponsive, he is off of levo fed drip currently stable hemodynamics heart rate is 60, paced rhythm, he is still on the lidocaine drip, he had an dialysis earlier this morning tolerated very well 2 L of fluid has been removed, x-ray I reviewed his stable, when setting remains stable can assist control rate of 16 breathing about 20, PEEP is 5, tidal volume is 500, peak airway pressure about 20-24, patient remains on broad-spectrum antibiotics, renal functions are stable on dialysis, third spacing infiltrate however it's infiltrate, we'll continue to monitor clinical course patient might require a PEG tube as well as tracheostomy next week, will start tube feeding 10 mL an hour and follow clinical course closely labs reviewed chest x-ray revi ewed, patient is resumed on Coumadin, INR today is 2 critical care time spent 35 minutes February 09, 2020, patient seen eval examined during the rounds labs reviewed medications reviewed care plan discussed with the staff at length patient remains poorly responsive , only Corneal Reflexion Very Weak Gag Reflex Patient Remains Intubated and Ventilator Setting Includes Assist Control with 16 Breathing about 20, Tidal Volume 600, HEENT of 5, Oxygen Is 40%, Peak Air Pressures Present, Chest X-Ray Reviewed Shows Right-Sided Pleural Effusion and Right-Sided Infiltrate Stable, Patient Is Due for a CAT Scan Patient Has Multiple EEG Shows Wide Complex Wave Pattern, Could Not Tolerate This Therapy for Now High Residuals, Patient Is Undergoing Hemodialysis Which Is Third Dialysis in the in the row, blood pressure remains labile, she remains on levo fed 7 mics with lidocaine drip, patient remains on the bradycardic, 02/08/2020, patient seen eval examined during the rounds labs reviewed medications reviewed care plan discussed, patient the appears to be developing some coagulopathy due to poor liver functions small dose of vitamin K given, hemodynamically patient's stable but continued to require vasopressors to have a adequate blood pressure currently patient had a dialysis second dialysis today, tolerated very well, however patient remains poorly responsive off of propofol and need For sedation for last 3 days, ventilator remains stable with assist control rate of 16 breathing about 20 to, tidal volume is 600 PEEP of 5, oxygen is 40% now, patient to feed is to be reinitiated, white cell count is 13,000 hemoglobin and hematocrit stable, arterial blood gas stable, x overall stable with the ET tube as well as the line, right basal atelectasis small right-sided pleural effusion not much change, he has some gag and corneal reflexes now, 2 L of fluid has been removed today during dialysis levo fed drip is down to 5 mics 02/07/2020, patient seen eval reexamined during the rounds labs reviewed medications reviewed radiographic studies reviewed as well patient continues to get worsening of pleural effusion requiring emergent dialysis, currently patient is undergoing dialysis 1 L of fluid removed, patient is on 0.1 of levo fed drip which is up from yesterday, patient is off of sedation with propofol for almost 2 days, mental status still compromised patient not breaking up with the sternal rub likely metabolic encephalopathy neurology is also following, when setting includes assist control rate of 16 breathing about 20, tidal volume 600, PEEP is is 5, oxygen is down to 40%, oxygen and oxygenation air entry is better situational 100% patient remains afebrile rest or secretions are minimal, Keofeed is on hold patient has been on Reglan to figure will be started later on once dialysis is over, cardiovascular point patient remains on lidocaine drip, he is on amiodarone oral/through the NG-tube, white cell count is up to 16,000, creatinine is up to 6.43 predialysis 02/06/2020, patient seen eval examined during the rounds labs reviewed medications reviewed care plan discussed with the staff at length, propofol has been discontinued since last night patient remains unresponsive, neurology service has been following computed tomography scan of the head has been ordere d, EKG repeat is pending, pulmonary-quiñones have patient has been doing better remains afebrile no significant respiratory secretions are seen FiO2 is down to 40% remains on PEEP of 10 and tidal volume of 500 rate of 16 breathing about 20- 24, we can safely bring down the PEEP to 5 now, chest x-ray reviewed bilateral interstitial Petrin is present but now patient appears to be developing bilateral pleural effusion, dialysis is not performed today patient remains on 16 mics of levo fed, remains on broad-spectrum antibiotics, no significant arrhythmias noted, renal function continued to go up, patient to feed is on hold due to high residuals will start Reglan and reattempt in next 24 hours 02/05/2020, patient seen eval reexamined during her medication was resumed and continue breathing over the ventilator, current setting include assist control rate of 16 breathing about 20-24, tidal volume is 500, PEEP is 10, FiO2 is down to 40% now, heart rhythm remains in flutter with paced rhythm bradycardic about 45-50, patient remained on lidocaine drip, the amiodarone has been changed to oral, for hemodynamic support patient remains on 18 mics of levo fed, however it's down from 30 mics from this morning, less cyanosis in hand and toes noted, cultures have been negative, patient is tolerating tube feed well, chest x-ray shows stability, patient remains on broad-spectrum antibiotics for the diabetic foot ulcer and as well as a right-sided aspiration pneumonia on cephapirin Vanco and Flagyl, patient could not tolerate dialysis today due to fluctuation in blood pressure and rhythm, will reattempt tomorrow patient is definitely not ready for weaning critical care time 35 minutes 02/04/2020, patient seen and evaluated examined during the round remains on full ventilator support currently on assist control 16, tidal Volume of 500, 10 of PEEP and 50% oxygen, ABGs are stable, chest x-ray revealed stable, continue show dense right-sided infiltrate, but overall is stable, patient is intermittently regarding runs of V. tach, extra dose of amiodarone has been given, cardiovascular services following, patient is on 20 mics of levo fed, Keofeed is stable, patient has discoloration of fingers and toes, due to vasoconstriction related to the vasopressors, A-line and central line has been working labs reviewed, overall given the irritable nature of myocardium long-term prognosis is poor patient remains a full code was discussed cord issue with the family as per request of hospital staff, patient overall appears to not tolerate the CPR or shock in the event need arise, critical care time 35 minutes 02/03/2020, patient seen and evaluated examined during the rounds sedated with propofol drip about 30 mics patient is on full vent support, hypoxia Significantly worse after V. fib cardiac arrest have been earlier this morning, patient has been intubated, chest x-ray reviewed, patient is on amiodarone drip, status post ACLS protocol, revived, patient underwent a hemodialysis catheter this morning, currently dialysis is undergoing plan is to remove a liter, patient is on levo fed drip, urgently needed central line and A-line because of poor peripheral IV axis and risk of externalization of vasopressors, still have coffee-ground material coming but severity appears to improve gastric secretions light and now patient is on Armaan Keofeed can be started, patient has third spacing and tissue edema with ecchymosis and bruising upper extremity, also has diabetic foot ulcer, patient remains on broad-spectrum antibiotic with Cefepime, we'll add vancomycin with pharmacy to dose, vent setting currently include assist control with PEEP of 10 FiO2 is 60% oxygen saturations were dropping into high 80s FiO2 increase to 70%, critical care time spent 35 minutes 02/02/2020, patient seen eval examined during the rounds labs reviewed medications reviewed, patient remains on dobutamine drip off of dopamine drip he is on Lasix 50 mg an hour, patient due to gastric distention was the having coffee-ground and Mrs. however hemoglobin remained stable white cell count went up to 15,000, patient INR isn't therapeutic range now,, patient has been on proton pump inhibitor, a computed tomography scan of the abdominal and pelvis has been performed which has been reviewed no gastric outlet obstruction has been noted but stomach may be slightly distended due to air, arterial blood gas have been reviewed adequate ventilation and oxygenation is present x-ray however suggestive of the fluid overload with bilateral pleural effusion not much change, renal functions remains on the higher level, patient likely will need hemodialysis with volume removal, care plan discussed with the staff further recommendations pending plan of care as per clinical response of the patient 02/01/2020, patient seen eval examined during the rounds, he remains afebrile, hemodynamic status stable however the blood pressure continue be on the low side oxygen saturation is 98% on 2 L, patient remains on breathing treatments and broad-spectrum antibiotics, do vitamin have been on hold due to tachycardia however remains on Lasix drip, Coumadin remains on hold recommend to check on a daily basis and resume Coumadin once is okay from cardiovascular services 01/31/2020, patient seen eval examined during the rounds has history of oxygen breathing status stable, saturation is 90-93%, patient has been on dobutamine and dopamine and Lasix strip, INR is coming down, BUN/creatinine slightly up This is a 79-year-old male who was seen evaluated examined on third floor, patient came into the hospital with progressive shortness of breath associated with last 1-2 weeks with increased swelling progressively from the 4 extremities to mid abdominal level in addition patient appears to be having diabetic foot infection with edema and redness in the toes as well in the left foot, patient is arousable but tired on 3 L oxygen, patient is to be started on Lasix drip along with dobutamine drip, patient has a history of COPD chronic systolic heart failure chronic atrial fibrillation diabetes along with chronic renal failure stage IV, currently patient is on WelChol dilators in the form of DuoNeb, ID service has been requested for antibiotics, his chest x-ray consistent with congestive heart failure fluid overload and pulmonary edema in addition to his interstitial edema and small bilateral pleural effusion Objective - Vital Signs Vital signs: Vital Signs Temp 98.1 F 02/11/20 16:00 Pulse 63 02/11/20 19:47 Resp 16 02/11/20 18:30 BP 95/43 02/11/20 18:30 Pulse Ox 99 02/11/20 18:30 Intake & Output 02/11/20 02/11/20 02/12/20 06:59 18:59 06:59 Intake Total 660.913 530.168 Output Total 30 2014 Balance 630.913 -1484.832 Weight 99.4 kg Intake: IV 496 269 Artline flush 36 39 Piperacillin-Tazobactam 3 120 100 .375 gm In Sodium Chloride 0.9% 100 ml @ 25 mls/hr IVPB Q12HR [facility] Rx #:[id number] Sodium Chloride 0.9% 1, 140 130 000 ml @ 20 mls/hr IV . Q24H [facility] Rx#:[id number] Valproate Sodium 250 mg 200 In Sodium Chloride 0.9% 100 ml @ 100 mls/hr IVPB Q6HR [facility] Rx#:[id number] Intake, IV Titration 4.913 11.168 Amount Norepinephrine 32 mg In 4.913 11.168 Sodium Chloride 0.9% 218 ml @ 0.3 MCG/KG/MIN 13. 458 mls/hr IV .[id number] [facility] Rx#:[id number] Tube Feeding 100 190 Other 60 60 Output: Urine 30 15 Hemodialysis 1999 Other: Voiding Method Indwelling Catheter Indwelling Catheter ABP, PAP, CO, CI - Last Documented Arterial Blood Pressure 94/31 - Exam Intubated sedated on full respiratory support diffuse ecchymosis edema and third spacing - Constitutional General appearance: disheveled, mild distress, morbidly obese, unresponsive to deep sternal rub - Neck Neck: Supple Carotids: bilateral: upstroke normal - Respiratory Respiratory: bilateral: diminished, dullness, rales bronchial breath sounds especially on the right side - Cardiovascular Rhythm: regular Heart sounds: normal: S1, S2 - Gastrointestinal General gastrointestinal: normal bowel sounds, soft - Musculoskeletal Musculoskeletal: generalized weakness, strength equal bilaterally - Psychiatric Psychiatric: Sedated on full ventilator support Edema involving the lower extremity up to the abdominal level, in addition left diabetic foot involvement of the toes - Labs CBC & Chem 7: 02/11/20 04:35 02/11/20 04:35 Labs: Abnormal Lab Results - Last 24 Hours (Table) 02/10/20 02/11/20 02/11/20 Range/Units 23:54 04:35 04:35 RBC 3.04 L (4.30-5.90) m/uL Hgb 8.8 L (13.0-17.5) gm/dL Hct 28.9 L (39.0-53.0) % MCHC 30.5 L (31.0-37.0) g/dL RDW 17.1 H (11.5-15.5) % Plt Count 110 L (150-450) k/uL PT 16.6 H (9.0-12.0) sec INR 1.7 H (<1.2) Carbon Dioxide (22-30) mmol/L BUN (9-20) mg/dL Creatinine (0.66-1.25) mg/dL Glucose (74-99) mg/dL POC Glucose (mg/dL) 119 H (75-99) mg/dL Calcium (8.4-10.2) mg/dL 02/11/20 02/11/20 02/11/20 Range/Units 04:35 06:11 12:05 RBC (4.30-5.90) m/uL Hgb (13.0-17.5) gm/dL Hct (39.0-53.0) % MCHC (31.0-37.0) g/dL RDW (11.5-15.5) % Plt Count (150-450) k/uL PT (9.0-12.0) sec INR (<1.2) Carbon Dioxide 21 L (22-30) mmol/L BUN 58 H (9-20) mg/dL Creatinine 4.78 H (0.66-1.25) mg/dL Glucose 121 H (74-99) mg/dL POC Glucose (mg/dL) 119 H 107 H (75-99) mg/dL Calcium 7.6 L (8.4-10.2) mg/dL 02/11/20 Range/Units 17:40 RBC (4.30-5.90) m/uL Hgb (13.0-17.5) gm/dL Hct (39.0-53.0) % MCHC (31.0-37.0) g/dL RDW (11.5-15.5) % Plt Count (150-450) k/uL PT (9.0-12.0) sec INR (<1.2) Carbon Dioxide (22-30) mmol/L BUN (9-20) mg/dL Creatinine (0.66-1.25) mg/dL Glucose (74-99) mg/dL POC Glucose (mg/dL) 109 H (75-99) mg/dL Calcium (8.4-10.2) mg/dL Assessment and Plan Assessment: Altered mental status encephalopathy/coma likely related component of anoxic injury to brain cannot be excluded now off of propofol for 5 days anoxic diffuse injury to brain appears to be more likely, patient does open his eyes with sternal rub Status post cardiopulmonary arrest Intermittent runs of V. tach rhythm appears to be more organized now on lidocaine and amiodarone Aspiration pneumonia Status post V. fib cardiac arrest Acute on chronic renal failure mostly appears to be cardiorenal, now on dialysis continuously daily basis Upper GI coffee-ground emesis likely due to stress ulceration patient has been on Protonix, stable Acute on chronic hypoxic respiratory failure Acute on chronic heart failure related to systolic heart failure Left foot with inflammation involving toes Bilateral pleural effusion Bilateral basal atelectasis COPD without exacerbation Severe leg uncontrolled diabetes with chronic complication with worsening Chronic atrial fibrillation Coagulopathy with elevated PT/INR, Coumadin is on hold Stage IV chronic renal failure baseline Plan: We'll continue to provide supportive care, patient probably will require tracheostomy and PEG tube insertion if not being able to wean from ventilator, we'll discuss with the family next week, Continue to attempt hemodialysis as planned, currently undergoing daily hemodialysis neurology is following, patient is being planned for follow-up EEG Continue tube feed as tolerated with a lower rate Observe patient off of the levo fed as well as lidocaine drip Continue to monitor patient closely in ICU Replace electrolytes Continue oral amiodarone Continue broad-spectrum antibiotics with Flagyl and vancomycin and cefapime Continue ventilator adjustment as needed and tolerated Hypothermia protocol not available in this institution Continue bronchodilators Labs and chest x-ray have been ordered for tomorrow As far as pleural effusion is concerned will monitor and observe no plans for thoracentesis Monitor renal functions and electrolytes closely Continue Coumadin for now monitor observe PT/INR closely, keep it between 2 and 3 Further recommendations pending plan of care as per clinical response of patient, long-term prognosis poor, patient is DO NOT RESUSCITATE CODE STATUS per family request
[2020-02-11] MEDS: TAMSULOSIN 0.4 MG CAP.ER.24H PO SCH (21:36)
[2020-02-11] MEDS: MONTELUKAST 10 MG TAB PO SCH (21:36)
--- NOTE | 2020-02-11 21:56 | PN ---
PROGRESS NOTE DATE OF SERVICE: 02/11/2020 REASON FOR FOLLOWUP: Aspiration pneumonia. INTERVAL HISTORY: The patient is currently afebrile. The patient is hemodynamically stable. FiO2 is currently 40%. No significant secretions through the ET and no diarrhea has been reported by nursing staff. PHYSICAL EXAMINATION: Blood pressure is 121/49 with a pulse of 63, temperature 98.1. He is 100% on 40% FiO2. General description is an elderly male lying in bed, intubated on the vent. Respiratory system: Unlabored breathing, clear to auscultation anteriorly. Heart S1, S2. Regular rate and rhythm. Abdomen soft, no tenderness, distention. LABS: Hemoglobin 8.8, white count 8.4, BUN of 28, creatinine is 4.78. DIAGNOSTIC IMPRESSION AND PLAN: Patient with acute respiratory failure, vent dependent with a component of aspiration pneumonia. The patient is currently covered with Zosyn. White count normal. He is afebrile. To continue and monitor clinical course closely. Continue supportive care. MMODL / IJN: [id number] /
[2020-02-12 00:04] LABS: Glucose,Whole Blood 113 mg/dL (75-99)
[2020-02-12] MEDS: VALPROATE SODIUM 250 MG in SODIUM CHLORIDE 0.9% 100 ML IVPB SCH ×5 (00:08→23:57)
[2020-02-12] MEDS: INSULIN ASPART (NovoLOG) 100 UNIT/ML VIAL SQ SCH ×5 (00:08→23:55)
[2020-02-12 04:46] LABS: Anisocytosis Slight; Basophils % (A) 0 %; Eosinophils # (A) 0.3 k/uL (0-0.7); Eosinophils % (A) 5 %; HCT 27.9 % (39.0-53.0); HGB 8.5 gm/dL (13.0-17.5); Hypochromasia Marked; Lymphocytes # (A) 0.5 k/uL (1.0-4.8); Lymphocytes % (A) 8 %; MCH 29.3 pg (25.0-35.0); MCHC 30.4 g/dL (31.0-37.0); MCV 96.2 fL (80.0-100.0); Macrocytosis Slight; Mean Platelet Volume 9.9; Monocytes # (A) 0.4 k/uL (0-1.0); Monocytes % (A) 6 %; Neutrophils # (A) 5.2 k/uL (1.3-7.7); Neutrophils % (A) 79 %; Platelet Count 120 k/uL (150-450); RDW 16.8 % (11.5-15.5); WBC 6.5 k/uL (3.8-10.6)
[2020-02-12 04:53] LABS: INR 1.9 (<1.2); Prothrombin Time 18.3 sec (9.0-12.0)
[2020-02-12 05:01] LABS: Calcium 7.5 mg/dL (8.4-10.2); Potassium 3.9 mmol/L (3.5-5.1)
[2020-02-12] MEDS: NOREPINEPHRINE 32 MG in SODIUM CHLORIDE 0.9% 218 ML IV SCH ×2 (05:42→21:51)
[2020-02-12] MEDS ORDERED: Potassium Replacement Protocol 1 EACH MISC MISCELLANE PRN (05:55)
[2020-02-12] MEDS ORDERED: POTASSIUM BICARBONATE/CIT AC 20 MEQ TABLET.EFF NG-TUBE SCH (06:00)
[2020-02-12 06:15] LABS: Glucose,Whole Blood 107 mg/dL (75-99)
--- NOTE | 2020-02-12 07:22 | XR ---
EXAMINATION TYPE: XR chest 1V DATE OF EXAM: 02/12/2020 COMPARISON: Prior chest x-ray 02/11/2020 HISTORY: Shortness of breath TECHNIQUE: Single frontal view of the chest is obtained. FINDINGS: Endotracheal tube, NG tube, right jugular central venous catheter, pacemaker are stable. T here is no evident pneumothorax. Bibasilar increased attenuation persists. Heart size is stable. Ther e are overlying artifacts. IMPRESSION: There is not a significant interval change. Probable basilar effusions and associated at electasis. Borderline heart size.
[2020-02-12] MEDS: IPRATROPIUM-ALBUTEROL 3 ML NEB INHALATION SCH ×4 (07:26→20:14)
[2020-02-12] MEDS: PANTOPRAZOLE 40 MG/10 ML VIAL IVP SCH ×2 (09:20→20:09)
[2020-02-12] MEDS: PIPERACILLIN-TAZOBACTAM 3.375 GM in SODIUM CHLORIDE 0.9% 100 ML IVPB SCH ×2 (09:20→20:10)
[2020-02-12] MEDS: CALCITRIOL 0.25 MCG CAP PO SCH (09:20)
[2020-02-12] MEDS: AMIODARONE 200 MG TAB PO SCH ×2 (09:20→20:09)
[2020-02-12] MEDS: SENNOSIDES 8.6 MG TAB PO SCH ×2 (09:20→20:09)
[2020-02-12] MEDS: CHLORHEXIDINE GLUCONATE 15 ML CUP MUCOUS MEM SCH ×2 (09:20→20:09)
[2020-02-12] MEDS: CARVEDILOL 3.125 MG TAB PO SCH ×2 (09:20→20:10)
[2020-02-12] MEDS: CARBIDOPA-LEVODOPA 10-100 MG 1 EACH TAB PO SCH ×2 (09:21→20:51)
[2020-02-12] MEDS: ISOSORBIDE MONONITRATE ER 15 MG TAB PO SCH (09:24)
--- NOTE | 2020-02-12 10:15 | P.PN ---
Subjective Patient is seen in follow-up for end-stage renal disease. He was started on hemodialysis this admission. Currently intubated. On 40% FiO2. On low-dose Levophed. Has been undergoing daily hemodialysis the last 5 days for ultrafiltration. Vital signs are stable. On low-dose Levophed. General: The patient appeared well nourished and normally developed. HEENT: Head exam is unremarkable. Neck is without jugular venous distension. NG tube noted. LUNGS: Breath sounds decreased. HEART: Rate and Rhythm are regular. ABDOMEN: Soft, nontender. EXTREMITITES: 1+ edema. Objective - Vital Signs Vital signs: Vital Signs Temp 98.3 F 02/12/20 08:00 Pulse 66 02/12/20 09:00 Resp 17 02/12/20 09:00 BP 119/45 02/12/20 09:00 Pulse Ox 100 02/12/20 09:00 Intake & Output 02/11/20 02/12/20 02/12/20 18:59 06:59 18:59 Intake Total 530.168 603 149 Output Total 2014 10 14 Balance -1484.832 593 135 Weight 100.8 kg Intake: IV 269 403 69 Artline flush 39 33 9 Piperacillin-Tazobactam 3 100 100 .375 gm In Sodium Chloride 0.9% 100 ml @ 25 mls/hr IVPB Q12HR [facility] Rx #:[id number] Sodium Chloride 0.9% 1, 130 170 60 000 ml @ 20 mls/hr IV . Q24H [facility] Rx#:[id number] Valproate Sodium 250 mg 100 In Sodium Chloride 0.9% 100 ml @ 100 mls/hr IVPB Q6HR [facility] Rx#:[id number] Intake, IV Titration 11.168 Amount Norepinephrine 32 mg In 11.168 Sodium Chloride 0.9% 218 ml @ 0.3 MCG/KG/MIN 13. 458 mls/hr IV .[id number] [facility] Rx#:[id number] Tube Feeding 190 110 50 Other 60 90 30 Output: Urine 15 10 14 Hemodialysis 1999 Other: Voiding Method Indwelling Catheter Indwelling Catheter Indwelling Catheter ABP, PAP, CO, CI - Last Documented Arterial Blood Pressure 133/35 - Labs CBC & Chem 7: 02/12/20 04:25 02/12/20 04:25 Labs: Abnormal Lab Results - Last 24 Hours (Table) 02/11/20 02/11/20 02/12/20 Range/Units 12:05 17:40 00:01 RBC (4.30-5.90) m/uL Hgb (13.0-17.5) gm/dL Hct (39.0-53.0) % MCHC (31.0-37.0) g/dL RDW (11.5-15.5) % Plt Count (150-450) k/uL Lymphocytes # (1.0-4.8) k/uL PT (9.0-12.0) sec INR (<1.2) Chloride (98-107) mmol/L BUN (9-20) mg/dL Creatinine (0.66-1.25) mg/dL POC Glucose (mg/dL) 107 H 109 H 113 H (75-99) mg/dL Calcium (8.4-10.2) mg/dL 02/12/20 02/12/20 02/12/20 Range/Units 04:25 04:25 04:25 RBC 2.90 L (4.30-5.90) m/uL Hgb 8.5 L (13.0-17.5) gm/dL Hct 27.9 L (39.0-53.0) % MCHC 30.4 L (31.0-37.0) g/dL RDW 16.8 H (11.5-15.5) % Plt Count 120 L (150-450) k/uL Lymphocytes # 0.5 L (1.0-4.8) k/uL PT 18.3 H (9.0-12.0) sec INR 1.9 H (<1.2) Chloride 108 H (98-107) mmol/L BUN 44 H (9-20) mg/dL Creatinine 4.18 H (0.66-1.25) mg/dL POC Glucose (mg/dL) (75-99) mg/dL Calcium 7.5 L (8.4-10.2) mg/dL 02/12/20 Range/Units 06:12 RBC (4.30-5.90) m/uL Hgb (13.0-17.5) gm/dL Hct (39.0-53.0) % MCHC (31.0-37.0) g/dL RDW (11.5-15.5) % Plt Count (150-450) k/uL Lymphocytes # (1.0-4.8) k/uL PT (9.0-12.0) sec INR (<1.2) Chloride (98-107) mmol/L BUN (9-20) mg/dL Creatinine (0.66-1.25) mg/dL POC Glucose (mg/dL) 107 H (75-99) mg/dL Calcium (8.4-10.2) mg/dL Assessment and Plan Plan: Assessment: 1. End-stage renal disease secondary to cardiorenal syndrome and diabetic kidney disease started on hemodialysis this admission. 2. Status post cardiac arrest, now off lidocaine drip. 3. Acute on chronic systolic CHF with ejection fraction of 25-30% with moderate aortic stenosis, moderate to severe mitral regurgitation, severe tricuspid regurgitation and severe pulmonary hypertension. 4. Volume overload. Improving with diuresis. 5. Insulin-dependent diabetes mellitus. 6. Chronic kidney disease mineral bone disease maintained on calcitriol. 7. Anemia of chronic kidney disease maintained on Aranesp. Severe iron deficiency noted. 8. Aspiration pneumonia maintain on antibiotics. Sputum culture positive for Corynebacterium. Plan: Continue with daily hemodialysis for now mostly for ultrafiltration. Wean vasopressors.
[2020-02-12] MEDS: SODIUM CHLORIDE 0.9% 1,000 ML IV SCH (16:07)
--- NOTE | 2020-02-12 16:36 | EEG ---
ELECTROENCEPHALOGRAM REPORT DATE OF ADMISSION: 01/29/2020. This is a followup EEG for an 79-year-old gentleman who suffered from a cardiac arrest. This EEG is performed to follow up on prior EEGs. Current medication is valproic acid. TECHNICAL REPORT: This is an inpatient EEG performed on the [employer] EEG monitor with electrodes placed according to the International 10-20 system and a single EKG channel. Simultaneous video EEG monitoring was performed. This EEG was reviewed in both longitudinal bipolar common average referential and transverse montages. Photic stimulation was performed. Hyperventilation was not performed. The recording begins with the patient with eyes closed on ventilator. A low amplitude background is noted with predominantly mixed theta frequencies ranging between 6-7 Hz., rarely increasing to 8 Hz. Prominent beta activity is noted over the anterior and central head region. Intermittent muscle and movement artifact contaminate the tracing. Infrequently slow rolling eye movements are noted. Photic stimulation was performed at various flash frequencies and failed to elicit a consistent driving response. Deeper stages of sleep were not achieved. IMPRESSION: This EEG now consisted of a normal predominantly drowsy EEG study with brief wakefulness. The awake background appears normal for the patient's stated age and the sleep architecture appears normal. No abnormalities were noted during photic stimulation or in the EKG. Compared to his prior EEG on February 06, there is significant improvement as the EEG on the showed generalized diffuse slowing consistent with encephalopathy. This EEG is more synchronated, more well modulated and does exhibit a normal sleep architecture associated with drowsiness. The brief wakefulness also is normal for this patient's stated age. CLINICAL CORRELATION: This EEG does suggest that there is an improvement electrographically. No electrographic seizures, clinical seizures were noted during this study. Serial EEGs are recommended and neuro imaging studies when patient is stable. MMODL / IJN: [id number] / DELMER
[2020-02-12 17:09] LABS: Glucose,Whole Blood 97 mg/dL (75-99)
[2020-02-12] MEDS ORDERED: WARFARIN 5 MG TAB PO ONE (18:00)
--- NOTE | 2020-02-12 18:00 | PN ---
PROGRESS NOTE DATE OF SERVICE: 02/12/2020 This 79-year-old gentleman who was admitted with CHF exacerbation, also had metabolic encephalopathy. The patient also had cardiac respiratory arrest and possible anoxic brain damage is also being considered. The patient is only minimally responsive at this time. I discussed the case at length with Dr. Abraham who is following the patient along with EEG and discussing the diagnostic and prognostic implications with the as well. The most recent chest x-ray which was reviewed personally by me done today showed evidence of significant lesions on the right side of the chest. The white count is 6.2, hemoglobin is 8.5, and the sputum culture showed Corynebacterium striatum. Past Medical history reviewed. review of systems Review of systems could not be taken, the patient mechanically ventilated and sedated. CURRENT MEDICATIONS: Reviewed and include: 1. DuoNeb q.i.d. and p.r.n. 2. Cordarone 200 mg p.o. b.i.d. 3. Rocaltrol 0.5 mg Wednesday, . 4. Sinemet 10/100 p.o. b.i.d. 5. Coreg 3.125 mg p.o. b.i.d. 6. Peridex. 7. Iron sulfate. 8. NovoLog. 9. Imdur. 10.Singular. 11.Narcan. 12.Zosyn. 13.Senokot-S. 14.Valproic acid. PHYSICAL EXAM: Patient is mechanically sedated. Pulse 66, blood pressure 120/45, respiration 17, temperature is normal. Pulse ox 100 percent on 40% FiO2. Vent settings are noted. HEENT: Conjunctivae normal. Oral mucosa moist. NECK is no jugular venous distention. No carotid bruit. No lymph node enlargement. CARDIOVASCULAR systems: S1, S2. RESPIRATION: Breath sounds diminished in the bases. A few scattered rhonchi and crackles. ABDOMEN: Soft, nontender. NERVOUS SYSTEM: Patient mechanically ventilated and sedated. LABS: WBC is 6.2, hemoglobin is 8.5, sodium 140, potassium 3.9 and calcium 7.5. ASSESSMENT: 1. Congestive heart failure acute exacerbation with acute on chronic systolic dysfunction with acute hypoxic respiratory failure on mechanical ventilation. 2. Acute metabolic encephalopathy multifactorial. Rule out anoxic brain injury. 3. Acute cardiorespiratory arrest secondary to ventricular fibrillation. 4. Diffuse cerebral dysfunction in the EEG. 5. Sepsis, septic shock, multifactorial. 6. Possible right-sided bilateral pneumonia, right more the left. Aspiration pneumonia with acute hypoxic respiratory failure. 7. Congestive heart failure acute exacerbation with acute on chronic systolic dysfunction, ejection fraction 20% to 25%. 8. Bilateral pleural effusion. 9. Bilateral bibasilar atelectasis. 10.History of gastrointestinal bleed. 11.Hypercoagulability. 12.Nonsustained ventricular tachycardia. 13.Chronic atrial fibrillation. 14.Moderate aortic stenosis and severe mitral regurgitation. 15.Severe tricuspid regurgitation. 16.Acute on chronic renal failure stage 4. 17.Diabetes mellitus type 2. 18.Hypertension. 19.Hyperlipidemia. 20.Acute right lower extremity cellulitis. 21.Chronic obstructive pulmonary disease. 22.Anemia, normocytic anemia of chronic disease. 23.Thrombocytopenia. 24.NO CODE, NO CPR, NO VENT. RECOMMENDATIONS AND DISCUSSION: In this 79-year-old gentleman who presented with multiple complex medical issues, we will monitor the patient closely, continue the current medications, symptomatic treatment. We will await the EEG report. Otherwise, continue with further mechanical ventilation and weaning parameters per Pulmonary. Otherwise continue the rest of medication, hemodialysis and continue the broad-spectrum IV antibiotics. Patient is on IV Zosyn at this time. We will continue to monitor. MMODL / IJN: [id number] /
--- NOTE | 2020-02-12 18:06 | PN ---
PROGRESS NOTE DATE OF SERVICE: 02/12/2020 REASON FOR FOLLOWUP: Aspiration pneumonia. INTERVAL HISTORY: The patient is currently afebrile. Patient is hemodynamically stable. Not on any pressor support. Has been tolerating his tube feeds. Had some diarrhea about one per shift. No worsening has been noticed. He is slowly waking up. PHYSICAL EXAMINATION: Blood pressure 130/35 with a pulse of 85, temperature 98.3. He is 100% on 40% FiO2. General description is an elderly male lying in bed in no distress. Respiratory system: Unlabored breathing, clear to auscultation anteriorly. HEART S1, S2. Regular rate and rhythm. ABDOMEN: Soft, no tenderness. LAB: 8.5, white count 6.5, BUN of 44, creatinine 4.18. DIAGNOSTIC IMPRESSION AND PLAN: Patient with acute respiratory failure which is multifactorial with a component of pneumonia, likely aspiration etiology, no significant change. However, clinical improvement has been noticed by the nursing staff. He is currently covered with [employer] to continue. Monitor clinical course closely. MMODL / IJN: [id number] /
[2020-02-12 18:12] LABS: Glucose,Whole Blood 94 mg/dL (75-99)
[2020-02-12] MEDS: TAMSULOSIN 0.4 MG CAP.ER.24H PO SCH (20:09)
[2020-02-12] MEDS: MONTELUKAST 10 MG TAB PO SCH (20:09)
--- NOTE | 2020-02-12 20:50 | P.PN ---
Subjective Progress Note Date: 02/12/20 (Rectal care time 35 minutes) Principal diagnosis: Metabolic encephalopathy/altered mental status Status post cardiopulmonary arrest Intermittent runs of V. tach Aspiration pneumonia Acute hypoxic respiratory failure Acute on chronic renal failure Upper GI bleed/coffee-ground emesis Gastric distention Acute on chronic heart failure related to systolic heart failure Left foot with inflammation involving toes Bilateral pleural effusion Bilateral basal atelectasis COPD without exacerbation Severe leg uncontrolled diabetes with chronic complication with worsening Chronic atrial fibrillation Coagulopathy with elevated PT/INR, Coumadin is on hold Stage IV chronic renal failure 02/12/2020, patient seen eval examined during the rounds mental status remains c ompromised however patient does respond to deep sternal rub opens eyes spontaneously with that, EEG is showing almost normal wave pattern but with sedated features, hemodynamics remain stable patient remains off of levo fed drip and lidocaine drip no obvious arrhythmia has been seen, patient underwent hemodialysis 1.5 L of fluid has been removed, when setting remains stable on assist control of 16 breathing 20, tidal volume 600, PEEP is 5, oxygen is 40%, her peak airway pressure are 25-26, right-sided infiltrate and bilateral small pleural effusion are stable, tubes and hardware in the lungs are stable, patient has been on tube feed has been on 10 mL an hour will slightly go up on 20 mL an hour will go very slowly as patient is a high risk for high residuals, INR is up to 1.9 on Coumadin, BUN/creatinine continued to improve very slowly, 02/11/2020, patient seen eval examined during the rounds labs reviewed medications reviewed patient does open his eyes with sternal rub however does n ot follow commands, hemodynamically stable off of levo fed drip off of lidocaine as well, patient remains on oral amiodarone, full ventilator support is being given, vent settings are assist control rate of 16 tidal volume of 600, 5 of PEEP and FiO2 is 40%, respiratory rate is 20-22, peak airway pressure are 24-25, patient had a dialysis successfully performed in 2 L of fluid has been removed, chest x-ray shows bilateral pleural effusion as well as interstitial edema, no globin is 8.8, labs showed BUN/creatinine 58/4.78, white cell count is 8.4, INR slightly better 1.7, patient is being planned for another dialysis tomorrow 02/10/2020, patient seen eval examined during the rounds labs reviewed medications reviewed care plan discussed with the staff at length, mental status slightly appeared to be better as deep sternal rub and pressure patient didn't open his eyes which is a change compared to last 24-48 hours, otherwise patient remains somnolent and lethargic unresponsive, he is off of levo fed drip currently stable hemodynamics heart rate is 60, paced rhythm, he is still on the lidocaine drip, he had an dialysis earlier this morning tolerated very well 2 L of fluid has been removed, x-ray I reviewed his stable, when setting remains stable can assist control rate of 16 breathing about 20, PEEP is 5, tidal volume is 500, peak airway pressure about 20-24, patient remains on broad-spectrum antibiotics, renal functions are stable on dialysis, third spacing infiltrate however it's infiltrate, we'll continue to monitor clinical course patient might require a PEG tube as well as tracheostomy next week, will start tube feeding 10 mL an hour and follow clinical course closely labs reviewed chest x-ray reviewed, patient is resumed on Coumadin, INR today is 2 critical care time spent 35 minutes February 09, 2020, patient seen eval examined during the rounds labs reviewed medications reviewed care plan discussed with the staff at length patient remains poorly responsive , only Corneal Reflexion Very Weak Gag Reflex Patient Remains Intubated and Ventilator Setting Includes Assist Control with 16 Breathing about 20, Tidal Volume 600, HEENT of 5, Oxygen Is 40%, Peak Air Pressures Present, Chest X-Ray Reviewed Shows Right-Sided Pleural Effusion and Right-Sided Infiltrate Stable, Patient Is Due for a CAT Scan Patient Has Multiple EEG Shows Wide Complex Wave Pattern, Could Not Tolerate This Therapy for Now High Residuals, Patient Is Undergoing Hemodialysis Which Is Third Dial ysis in the in the row, blood pressure remains labile, she remains on levo fed 7 mics with lidocaine drip, patient remains on the bradycardic, 02/08/2020, patient seen eval examined during the rounds labs reviewed medications reviewed care plan discussed, patient the appears to be developing some coagulopathy due to poor liver functions small dose of vitamin K given, hemodynamically patient's stable but continued to require vasopressors to have a adequate blood pressure currently patient had a dialysis second dialysis today, tolerated very well, however patient remains poorly responsive off of propofol and need For sedation for last 3 days, ventilator remains stable with assist control rate of 16 breathing about 20 to, tidal volume is 600 PEEP of 5, oxygen is 40% now, patient to feed is to be reinitiated, white cell count is 13,000 hemoglobin and hematocrit stable, arterial blood gas stable, x overall stable with the ET tube as well as the line, right basal atelectasis small right-sided pleural effusion not much change, he has some gag and corneal reflexes now, 2 L of fluid has been removed today during dialysis levo fed drip is down to 5 mics 02/07/2020, patient seen eval reexamined during the rounds labs reviewed medications reviewed radiographic studies reviewed as well patient continues to get worsening of pleural effusion requiring emergent dialysis, currently patient is undergoing dialysis 1 L of fluid removed, patient is on 0.1 of levo fed drip which is up from yesterday, patient is off of sedation with propofol for almost 2 days, mental status still compromised patient not breaking up with the sternal rub likely metabolic encephalopathy neurology is also following, when setting includes assist control rate of 16 breathing about 20, tidal volume 600, PEEP is is 5, oxygen is down to 40%, oxygen and oxygenation air entry is better situational 100% patient remains afebrile rest or secretions are minimal, Keofeed is on hold patient has been on Reglan to figure will be started later on once dialysis is over, cardiovascular point patient remains on lidocaine drip, he is on amiodarone oral/through the NG-tube, white cell count is up to 16,000, creatinine is up to 6.43 predialysis 02/06/2020, patient seen eval examined during the rounds labs reviewed medica tions reviewed care plan discussed with the staff at length, propofol has been discontinued since last night patient remains unresponsive, neurology service has been following computed tomography scan of the head has been ordered, EKG repeat is pending, pulmonary-quiñones have patient has been doing better remains afebrile no significant respiratory secretions are seen FiO2 is down to 40% remains on PEEP of 10 and tidal volume of 500 rate of 16 breathing about 20-24, we can safely bring down the PEEP to 5 now, chest x-ray reviewed bilateral interstitial Petrin is present but now patient appears to be developing bilateral pleural effusion, dialysis is not performed today patient remains on 16 mics of levo fed, remains on broad-spectrum antibiotics, no significant arrhythmias noted, renal function continued to go up, patient to feed is on hold due to high residuals will start Reglan and reattempt in next 24 hours 02/05/2020, patient seen eval reexamined during her medication was resumed and continue breathing over the ventilator, current setting include assist control rate of 16 breathing about 20-24, tidal volume is 500, PEEP is 10, FiO2 is down to 40% now, heart rhythm remains in flutter with paced rhythm bradycardic about 45-50, patient remained on lidocaine drip, the amiodarone has been changed to oral, for hemodynamic support patient remains on 18 mics of levo fed, however it's down from 30 mics from this morning, less cyanosis in hand and toes noted, cultures have been negative, patient is tolerating tube feed well, chest x-ray shows stability, patient remains on broad-spectrum antibiotics for the diabetic foot ulcer and as well as a right-sided aspiration pneumonia on cephapirin Vanco and Flagyl, patient could not tolerate dialysis today due to fluctuation in blood pressure and rhythm, will reattempt tomorrow patient is definitely not ready for weaning critical care time 35 minutes 02/04/2020, patient seen and evaluated examined during the round remains on full ventilator support currently on assist control 16, tidal Volume of 500, 10 of PEEP and 50% oxygen, ABGs are stable, chest x-ray revealed stable, continue show dense right-sided infiltrate, but overall is stable, patient is intermittently regarding runs of V. tach, extra dose of amiodarone has been given, cardiovascular services following, patient is on 20 mics of levo fed, Keofeed is stable, patient has discoloration of fingers and toes, due to vasoconstriction related to the vasopressors, A-line and central line has been working labs reviewed, overall given the irritable nature of myocardium long-term prognosis is poor patient remains a full code was discussed cord issue with the family as per request of hospital staff, patient overall appears to not tolerate the CPR or shock in the event need arise, critical care time 35 minutes 02/03/2020, patient seen and evaluated examined during the rounds sedated with propofol drip about 30 mics patient is on full vent support, hypoxia Significa ntly worse after V. fib cardiac arrest have been earlier this morning, patient has been intubated, chest x-ray reviewed, patient is on amiodarone drip, status post ACLS protocol, revived, patient underwent a hemodialysis catheter this morning, currently dialysis is undergoing plan is to remove a liter, patient is on levo fed drip, urgently needed central line and A-line because of poor peripheral IV axis and risk of externalization of vasopressors, still have coffee-ground material coming but severity appears to improve gastric secretions light and now patient is on Armaan Keofeed can be started, patient has third spacing and tissue edema with ecchymosis and bruising upper extremity, also has diabetic foot ulcer, patient remains on broad-spectrum antibiotic with Cefepime, we'll add vancomycin with pharmacy to dose, vent setting currently include assist control with PEEP of 10 FiO2 is 60% oxygen saturations were dropping into high 80s FiO2 increase to 70%, critical care time spent 35 minutes 02/02/2020, patient seen eval examined during the rounds labs reviewed medications reviewed, patient remains on dobutamine drip off of dopamine drip he is on Lasix 50 mg an hour, patient due to gastric distention was the having coffee-ground and Mrs. however hemoglobin remained stable white cell count went up to 15,000, patient INR isn't therapeutic range now,, patient has been on proton pump inhibitor, a computed tomography scan of the abdominal and pelvis has been performed which has been reviewed no gastric outlet obstruction has been noted but stomach may be slightly distended due to air, arterial blood gas have been reviewed adequate ventilation and oxygenation is present x-ray however suggestive of the fluid overload with bilateral pleural effusion not much change, renal functions remains on the higher level, patient likely will need hemodialysis with volume removal, care plan discussed with the staff further recommendations pending plan of care as per clinical response of the patient 02/01/2020, patient seen eval examined during the rounds, he remains afebrile, hemodynamic status stable however the blood pressure continue be on the low side oxygen saturation is 98% on 2 L, patient remains on breathing treatments and broad-spectrum antibiotics, do vitamin have been on hold due to tachycardia however remains on Lasix drip, Coumadin remains on hold recommend to check on a daily basis and resume Coumadin once is okay from cardiovascular services 01/31/2020, patient seen eval examined during the rounds has history of oxygen breathing status stable, saturation is 90-93%, patient has been on dobutamine and dopamine and Lasix strip, INR is coming down, BUN/creatinine slightly up This is a 79-year-old male who was seen evaluated examined on third floor, patient came into the hospital with progressive shortness of breath associated with last 1-2 weeks with increased swelling progressively from the 4 extremities to mid abdominal level in addition patient appears to be having diabetic foot infection with edema and redness in the toes as well in the left foot, patient is arousable but tired on 3 L oxygen, patient is to be started on Lasix drip along with dobutamine drip, patient has a history of COPD chronic systolic heart failure chronic atrial fibrillation diabetes along with chronic renal failure stage IV, currently patient is on WelChol dilators in the form of DuoNeb, ID service has been requested for antibiotics, his chest x-ray consistent with c ongestive heart failure fluid overload and pulmonary edema in addition to his interstitial edema and small bilateral pleural effusion Objective - Vital Signs Vital signs: Vital Signs Temp 97.6 F 02/12/20 20:00 Pulse 51 L 02/12/20 20:24 Resp 19 02/12/20 20:00 BP 117/45 02/12/20 20:00 Pulse Ox 99 02/12/20 20:00 Intake & Output 02/12/20 02/12/20 02/13/20 06:59 18:59 06:59 Intake Total 603 397.425 63 Output Total 10 24 15 Balance 593 373.425 48 Weight 100.8 kg 100.8 kg Intake: IV 403 184 23 Artline flush 33 24 3 Piperacillin-Tazobactam 3 100 .375 gm In Sodium Chloride 0.9% 100 ml @ 25 mls/hr IVPB Q12HR [facility] Rx #:[id number] Sodium Chloride 0.9% 1, 170 160 20 000 ml @ 20 mls/hr IV . Q24H [facility]RI[facility] Rx#:[id number] Valproate Sodium 250 mg 100 In Sodium Chloride 0.9% 100 ml @ 100 mls/hr IVPB Q6HR ENRI[facility] Rx#:[id number] Intake, IV Titration 13.425 Amount Norepinephrine 32 mg In 13.425 Sodium Chloride 0.9% 218 ml @ 0.3 MCG/KG/MIN 13. 458 mls/hr IV .[id number] ENRIQUE Rx#:[id number] Tube Feeding 110 140 10 Other 90 60 30 Output: Urine 10 24 15 Other: Voiding Method Indwelling Catheter Indwelling Catheter ABP, PAP, CO, CI - Last Documented Arterial Blood Pressure 149/36 - Exam Intubated sedated on full respiratory support diffuse ecchymosis edema and third spacing - Constitutional General appearance: disheveled, mild distress, morbidly obese, unresponsive to deep sternal rub - Neck Neck: Supple Carotids: bilateral: upstroke normal - Respiratory Respiratory: bilateral: diminished, dullness, rales bronchial breath sounds especially on the right side - Cardiovascular Rhythm: regular Heart sounds: normal: S1, S2 - Gastrointestinal General gastrointestinal: normal bowel sounds, soft - Musculoskeletal Musculoskeletal: generalized weakness, strength equal bilaterally - Psychiatric Psychiatric: Sedated on full ventilator support Edema involving the lower extremity up to the abdominal level, in addition left diabetic foot involvement of the toes - Labs CBC & Chem 7: 02/12/20 04:25 02/12/20 04:25 Labs: Abnormal Lab Results - Last 24 Hours (Table) 02/12/20 02/12/20 02/12/20 Range/Units 00:01 04:25 04:25 RBC 2.90 L (4.30-5.90) m/uL Hgb 8.5 L (13.0-17.5) gm/dL Hct 27.9 L (39.0-53.0) % MCHC 30.4 L (31.0-37.0) g/dL RDW 16.8 H (11.5-15.5) % Plt Count 120 L (150-450) k/uL Lymphocytes # 0.5 L (1.0-4.8) k/uL PT 18.3 H (9.0-12.0) sec INR 1.9 H (<1.2) Chloride (98-107) mmol/L BUN (9-20) mg/dL Creatinine (0.66-1.25) mg/dL POC Glucose (mg/dL) 113 H (75-99) mg/dL Calcium (8.4-10.2) mg/dL 02/12/20 02/12/20 Range/Units 04:25 06:12 RBC (4.30-5.90) m/uL Hgb (13.0-17.5) gm/dL Hct (39.0-53.0) % MCHC (31.0-37.0) g/dL RDW (11.5-15.5) % Plt Count (150-450) k/uL Lymphocytes # (1.0-4.8) k/uL PT (9.0-12.0) sec INR (<1.2) Chloride 108 H (98-107) mmol/L BUN 44 H (9-20) mg/dL Creatinine 4.18 H (0.66-1.25) mg/dL POC Glucose (mg/dL) 107 H (75-99) mg/dL Calcium 7.5 L (8.4-10.2) mg/dL Assessment and Plan Assessment: Altered mental status encephalopathy/coma likely related component of anoxic injury to brain cannot be excluded now off of propofol for 5 days anoxic diffuse injury to brain appears to be more likely, patient does open his eyes with sternal rub Status post cardiopulmonary arrest Intermittent runs of V. tach rhythm appears to be more organized now on lidocaine and amiodarone Aspiration pneumonia Status post V. fib cardiac arrest Acute on chronic renal failure mostly appears to be cardiorenal, now on dialysis continuously daily basis Upper GI coffee-ground emesis likely due to stress ulceration patient has been on Protonix, stable Acute on chronic hypoxic respiratory failure Acute on chronic heart failure related to systolic heart failure Left foot with inflammation involving toes Bilateral pleural effusion Bilateral basal atelectasis COPD without exacerbation Severe leg uncontrolled diabetes with chronic complication with worsening Chronic atrial fibrillation Coagulopathy with elevated PT/INR, Coumadin is on hold Stage IV chronic renal failure baseline Plan: We'll continue to provide supportive care, patient probably will require tracheostomy and PEG tube insertion if not being able to wean from ventilator, we'll discuss with the family next week, Continue to attempt hemodialysis as planned, currently undergoing daily hemodialysis neurology is following, patient is being planned for follow-up EEG Continue tube feed as tolerated with a lower rate Observe patient off of the levo fed as well as lidocaine drip Continue to monitor patient closely in ICU Replace electrolytes Continue oral amiodarone Continue broad-spectrum antibiotics with Flagyl and vancomycin and cefapime Continue ventilator adjustment as needed and tolerated Hypothermia protocol not available in this institution Continue bronchodilators Labs and chest x-ray have been ordered for tomorrow As far as pleural effusion is concerned will monitor and observe no plans for thoracentesis Monitor renal functions and electrolytes closely Continue Coumadin for now monitor observe PT/INR closely, keep it between 2 and 3 Further recommendations pending plan of care as per clinical response of patient, long-term prognosis poor, patient is DO NOT RESUSCITATE CODE STATUS per family request Time with Patient: Greater than 30
[2020-02-12] MEDS: IPRATROPIUM-ALBUTEROL 3 ML NEB INHALATION PRN (23:10)
[2020-02-12 23:56] LABS: Glucose,Whole Blood 98 mg/dL (75-99)
[2020-02-13 04:23] LABS: Anisocytosis Slight; Basophils % (A) 0 %; Eosinophils # (A) 0.3 k/uL (0-0.7); Eosinophils % (A) 5 %; HCT 28.8 % (39.0-53.0); HGB 8.6 gm/dL (13.0-17.5); Hypochromasia Marked; Lymphocytes # (A) 0.6 k/uL (1.0-4.8); Lymphocytes % (A) 9 %; MCH 28.5 pg (25.0-35.0); Mean Platelet Volume 9.6; Monocytes # (A) 0.4 k/uL (0-1.0); Monocytes % (A) 7 %; Neutrophils # (A) 4.7 k/uL (1.3-7.7); Neutrophils % (A) 77 %; Platelet Count 109 k/uL (150-450); RBC 3.03 m/uL (4.30-5.90); RDW 16.9 % (11.5-15.5); WBC 6.2 k/uL (3.8-10.6)
[2020-02-13 04:33] LABS: INR 2.4 (<1.2); Prothrombin Time 23.6 sec (9.0-12.0)
[2020-02-13 05:05] LABS: Calcium 7.7 mg/dL (8.4-10.2); Potassium 3.9 mmol/L (3.5-5.1)
[2020-02-13 05:07] LABS: Glucose,Whole Blood 101 mg/dL (75-99)
[2020-02-13] MEDS: INSULIN ASPART (NovoLOG) 100 UNIT/ML VIAL SQ SCH ×3 (05:07→18:04)
[2020-02-13] MEDS: VALPROATE SODIUM 250 MG in SODIUM CHLORIDE 0.9% 100 ML IVPB SCH ×3 (05:10→18:04)
[2020-02-13 05:13] LABS: ABG Base Excess -2.9 mmol/L; ABG HCO3 22 mmol/L (21-25); ABG Oxygen Saturation 98.4 % (94-97); ABG PCO2 38 mmHg (35-45); ABG PH 7.38 (7.35-7.45); ABG PO2 115 mmHg (83-108); ABG TCO2 24 mmol/L (19-24); Allen Test Performed? Yes
--- NOTE | 2020-02-13 06:14 | P.PN ---
Progress Note - Text Progress Note Date: 02/12/20 Patient with known severe cardiomyopathy status post Carpulmonary arrest runs of ventricular tachycardia He's had multiple medical problems over the course of his admission He remains full code at this time It appears he may have anoxic brain injury Will follow when necessary at this point Continue Cordarone, carvedilol [facility] ICU team in discussion with patient's regarding his anoxic brain injury and extremely vertical overall medical condition and poor prognosis Please call as needed for any new cardiac issues
--- NOTE | 2020-02-13 07:12 | XR ---
EXAMINATION TYPE: XR chest 1V DATE OF EXAM: 02/13/2020 COMPARISON: Prior chest 02/12/2020 HISTORY: Intubated TECHNIQUE: Single frontal view of the chest is obtained. FINDINGS: Endotracheal tube and NG tube are overlying appropriate positions. Heart size is stable. P acemaker is unchanged. Right jugular central venous catheter shows the distal tip over the right atri um. No evident pneumothorax. Bibasilar density persists. IMPRESSION: Findings are similar to prior exam. Correlate for basilar edema, atelectasis, pneumonia, possible associated effusions.
[2020-02-13] MEDS: IPRATROPIUM-ALBUTEROL 3 ML NEB INHALATION SCH ×4 (07:18→19:38)
[2020-02-13] MEDS: PIPERACILLIN-TAZOBACTAM 3.375 GM in SODIUM CHLORIDE 0.9% 100 ML IVPB SCH ×2 (08:32→19:45)
[2020-02-13] MEDS: ISOSORBIDE MONONITRATE ER 15 MG TAB PO SCH (08:33)
[2020-02-13] MEDS: PANTOPRAZOLE 40 MG/10 ML VIAL IVP SCH ×2 (08:33→19:45)
[2020-02-13] MEDS: SENNOSIDES 8.6 MG TAB PO SCH ×2 (08:33→19:45)
[2020-02-13] MEDS: CARBIDOPA-LEVODOPA 10-100 MG 1 EACH TAB PO SCH ×2 (08:33→19:44)
[2020-02-13] MEDS: AMIODARONE 200 MG TAB PO SCH ×2 (08:33→19:44)
[2020-02-13] MEDS: CARVEDILOL 3.125 MG TAB PO SCH ×2 (08:33→19:45)
[2020-02-13] MEDS: CHLORHEXIDINE GLUCONATE 15 ML CUP MUCOUS MEM SCH ×2 (08:33→19:45)
[2020-02-13 11:36] LABS: Glucose,Whole Blood 99 mg/dL (75-99)
--- NOTE | 2020-02-13 11:43 | P.PN ---
Subjective Patient is seen in follow-up for end-stage renal disease. He was started on hemodialysis this admission. Currently intubated. On 40% FiO2. Off Levophed. Has been undergoing daily dialysis this past week mostly for ultrafiltration. Vital signs are stable. Off vasopressors. General: The patient appeared well nourished and normally developed. HEENT: Head exam is unremarkable. Neck is without jugular venous distension. NG tube noted. LUNGS: Breath sounds decreased. HEART: Rate and Rhythm are regular. ABDOMEN: Soft, nontender. EXTREMITITES: 1+ edema. Scrotal edema noted. Objective - Vital Signs Vital signs: Vital Signs Temp 97.8 F 02/13/20 04:00 Pulse 70 02/13/20 11:19 Resp 22 02/13/20 09:00 BP 119/49 02/13/20 09:00 Pulse Ox 99 02/13/20 09:00 Intake & Output 02/12/20 02/13/20 02/13/20 18:59 06:59 18:59 Intake Total 397.425 824.564 229 Output Total 24 50 0 Balance 373.425 774.564 229 Weight 100.8 kg 102 kg Intake: IV 184 553 169 Artline flush 24 33 9 Piperacillin-Tazobactam 3 100 100 .375 gm In Sodium Chloride 0.9% 100 ml @ 25 mls/hr IVPB Q12HR [facility] Rx #:[id number] Sodium Chloride 0.9% 1, 160 220 60 000 ml @ 20 mls/hr IV . Q24H [facility] Rx#:[id number] Valproate Sodium 250 mg 200 In Sodium Chloride 0.9% 100 ml @ 100 mls/hr IVPB Q6HR [facility] Rx#:[id number] Intake, IV Titration 13.425 1.564 Amount Norepinephrine 32 mg In 13.425 1.564 Sodium Chloride 0.9% 218 ml @ 0.3 MCG/KG/MIN 13. 458 mls/hr IV .[id number] [facility] Rx#:[id number] Tube Feeding 140 180 60 Other 60 90 Output: Urine 24 50 0 Other: Voiding Method Indwelling Catheter Indwelling Catheter Indwelling Catheter # Bowel Movements 1 ABP, PAP, CO, CI - Last Documented Arterial Blood Pressure 128/38 - Labs CBC & Chem 7: 02/13/20 04:10 02/13/20 04:10 Labs: Abnormal Lab Results - Last 24 Hours (Table) 02/13/20 02/13/20 02/13/20 Range/Units 04:10 04:10 04:10 RBC 3.03 L (4.30-5.90) m/uL Hgb 8.6 L (13.0-17.5) gm/dL Hct 28.8 L (39.0-53.0) % MCHC 30.0 L (31.0-37.0) g/dL RDW 16.9 H (11.5-15.5) % Plt Count 109 L (150-450) k/uL Lymphocytes # 0.6 L (1.0-4.8) k/uL PT 23.6 H (9.0-12.0) sec INR 2.4 H (<1.2) ABG pO2 (83-108) mmHg ABG O2 Saturation (94-97) % BUN 36 H (9-20) mg/dL Creatinine 3.80 H (0.66-1.25) mg/dL Glucose 100 H (74-99) mg/dL POC Glucose (mg/dL) (75-99) mg/dL Calcium 7.7 L (8.4-10.2) mg/dL 02/13/20 02/13/20 Range/Units 05:06 05:07 RBC (4.30-5.90) m/uL Hgb (13.0-17.5) gm/dL Hct (39.0-53.0) % MCHC (31.0-37.0) g/dL RDW (11.5-15.5) % Plt Count (150-450) k/uL Lymphocytes # (1.0-4.8) k/uL PT (9.0-12.0) sec INR (<1.2) ABG pO2 115 H (83-108) mmHg ABG O2 Saturation 98.4 H (94-97) % BUN (9-20) mg/dL Creatinine (0.66-1.25) mg/dL Glucose (74-99) mg/dL POC Glucose (mg/dL) 101 H (75-99) mg/dL Calcium (8.4-10.2) mg/dL Assessment and Plan Plan: Assessment: 1. End-stage renal disease secondary to cardiorenal syndrome and diabetic kidney disease started on hemodialysis this admission. 2. Status post cardiac arrest, now off lidocaine drip. 3. Acute on chronic systolic CHF with ejection fraction of 25-30% with moderate aortic stenosis, moderate to severe mitral regurgitation, severe tricuspid regurgitation and severe pulmonary hypertension. 4. Volume overload. Improving with diuresis. 5. Insulin-dependent diabetes mellitus. 6. Chronic kidney disease mineral bone disease maintained on calcitriol. 7. Anemia of chronic kidney disease maintained on Aranesp. 8. Aspiration pneumonia maintain on antibiotics. Sputum culture positive for Corynebacterium. Plan: Tolerated hemodialysis well this morning. Another treatment tomorrow with goal 2 liters ultrafiltration. Wean FiO2. Prognosis guarded.
[2020-02-13] MEDS: SODIUM CHLORIDE 0.9% 1,000 ML IV SCH (11:53)
[2020-02-13] MEDS: DARBEPOETIN ALFA 40 MCG/0.4 ML SYRINGE SQ SCH (12:08)
--- NOTE | 2020-02-13 12:44 | P.PN ---
Subjective Progress Note Date: 02/13/20 (Critical care time 35 minutes) Principal diagnosis: Metabolic encephalopathy/altered mental status Status post cardiopulmonary arrest Intermittent runs of V. tach Aspiration pneumonia Acute hypoxic respiratory failure Acute on chronic renal failure Upper GI bleed/coffee-ground emesis Gastric distention Acute on chronic heart failure related to systolic heart failure Left foot with inflammation involving toes Bilateral pleural effusion Bilateral basal atelectasis COPD without exacerbation Severe leg uncontrolled diabetes with chronic complication with worsening Chronic atrial fibrillation Coagulopathy with elevated PT/INR, Coumadin is on hold Stage IV chronic renal failure 02/13/2020, patient seen and evaluated examined during rounds labs reviewed me dications reviewed radiographic studies reviewed as well, patient remains on assist control with a rate of the 16 tidal volume of 500 PEEP is 5, oxygen is 40%, mental status appears slightly better as he is spontaneously open eyes and appears to following commands very weak, patient has a transient drop in blood pressure requiring levo fed again however it has been DC'd, patient had dialysis today and another 2.5 L of fluid has been removed, chest x-ray stable in terms of interstitial edema small pleural effusion as well as stable ET tube and NG tube, patient has been tolerating tube feed 20 mL an hour residuals are abnormal 100 mL stable, patient remains on paced rhythm, off of lidocaine, remains on amiodarone oral through the NG tube, patient remains on antibiotics, cultures so far has been negative, hemoglobin stable PT/INR is therapeutic. Blood gas well oxygenated and well ventilated will give him short CPAP pressure support trial with 5 of CPAP and 15 of pressure support of 15 minutes to half an hour 02/12/2020, patient seen eval examined during the rounds mental status remains compromised however patient does respond to deep sternal rub opens eyes spontaneously with that, EEG is showing almost normal wave pattern but with sedated features, hemodynamics remain stable patient remains off of levo fed drip and lidocaine drip no obvious arrhythmia has been seen, patient underwent hemodialysis 1.5 L of fluid has been removed, when setting remains stable on assist control of 16 breathing 20, tidal volume 600, PEEP is 5, oxygen is 40%, her peak airway pressure are 25-26, right-sided infiltrate and bilateral small pleural effusion are stable, tubes and hardware in the lungs are stable, patient has been on tube feed has been on 10 mL an hour will slightly go up on 20 mL an hour will go very slowly as patient is a high risk for high residuals, INR is up to 1.9 on Coumadin, BUN/creatinine continued to improve very slowly, 02/11/2020, patient seen eval examined during the rounds labs reviewed medications reviewed patient does open his eyes with sternal rub however does not follow commands, hemodynamically stable off of levo fed drip off of lidocaine as well, patient remains on oral amiodarone, full ventilator support is being given, vent settings are assist control rate of 16 tidal volume of 600, 5 of PEEP and FiO2 is 40%, respiratory rate is 20-22, peak airway pressure are 24-25, patient had a dialysis successfully performed in 2 L of fluid has been removed, chest x-ray shows bilateral pleural effusion as well as interstitial edema, no globin is 8.8, labs showed BUN/creatinine 58/4.78, white cell count is 8.4, INR slightly better 1.7, patient is being planned for another dialysis tomorrow 02/10/2020, patient seen eval examined during the rounds labs reviewed medications reviewed care plan discussed with the staff at length, mental status slightly appeared to be better as deep sternal rub and pressure patient didn't open his eyes which is a change compared to last 24-48 hours, otherwise patient remains somnolent and lethargic unresponsive, he is off of levo fed drip currently stable hemodynamics heart rate is 60, paced rhythm, he is still on the lidocaine drip, he had an dialysis earlier this morning tolerated very well 2 L of fluid has been removed, x-ray I reviewed his stable, when setting remains stable can assist control rate of 16 breathing about 20, PEEP is 5, tidal volume is 500, peak airway pressure about 20-24, patient remains on broad-spectrum antibiotics, renal functions are stable on dialysis, third spacing infiltrate however it's infiltrate, we'll continue to monitor clinical course patient might require a PEG tube as well as tracheostomy next week, will start tube feeding 10 mL an hour and follow clinical course closely labs reviewed chest x-ray reviewed, patient is resumed on Coumadin, INR today is 2 critical care time spent 35 minutes February 09, 2020, patient seen eval examined during the rounds labs reviewed medic ations reviewed care plan discussed with the staff at length patient remains poorly responsive , only Corneal Reflexion Very Weak Gag Reflex Patient Remains Intubated and Ventilator Setting Includes Assist Control with 16 Breathing about 20, Tidal Volume 600, HEENT of 5, Oxygen Is 40%, Peak Air Pressures Present, Chest X-Ray Reviewed Shows Right-Sided Pleural Effusion and Right-Sided Infiltrate Stable, Patient Is Due for a CAT Scan Patient Has Multiple EEG Shows Wide Complex Wave Pattern, Could Not Tolerate This Therapy for Now High Residuals, Patient Is Undergoing Hemodialysis Which Is Third Dialysis in the in the row, blood pressure remains labile, she remains on levo fed 7 mics with lidocaine drip, patient remains on the bradycardic, 02/08/2020, patient seen eval examined during the rounds labs reviewed medications reviewed care plan discussed, patient the appears to be developing some coagulopathy due to poor liver functions small dose of vitamin K given, hemodynamically patient's stable but continued to require vasopressors to have a adequate blood pressure currently patient had a dialysis second dialysis today, tolerated very well, however patient remains poorly responsive off of propofol and need For sedation for last 3 days, ventilator remains stable with assist control rate of 16 breathing about 20 to, tidal volume is 600 PEEP of 5, oxygen is 40% now, patient to feed is to be reinitiated, white cell count is 13,000 hemoglobin and hematocrit stable, arterial blood gas stable, x overall stable with the ET tube as well as the line, right basal atelectasis small right-sided pleural effusion not much change, he has some gag and corneal reflexes now, 2 L of fluid has been removed today during dialysis levo fed drip is down to 5 mics 02/07/2020, patient seen eval reexamined during the rounds labs reviewed medications reviewed radiographic studies reviewed as well patient continues to get worsening of pleural effusion requiring emergent dialysis, currently patient is undergoing dialysis 1 L of fluid removed, patient is on 0.1 of levo fed drip which is up from yesterday, patient is off of sedation with propofol for almost 2 days, mental status still compromised patient not breaking up with the sternal rub likely metabolic encephalopathy neurology is also following, when setting includes assist control rate of 16 breathing about 20, tidal volume 600, PEEP is is 5, oxygen is down to 40%, oxygen and oxygenation air entry is better situational 100% patient remains afebrile rest or secretions are minimal, Keofeed is on hold patient has been on Reglan to figure will be started later on once dialysis is over, cardiovascular point patient remains on lidocaine drip, he is on amiodarone oral/through the NG-tube, white cell count is up to 16,000, creatinine is up to 6.43 predialysis 02/06/2020, patient seen eval examined during the rounds labs reviewed me dications reviewed care plan discussed with the staff at length, propofol has been discontinued since last night patient remains unresponsive, neurology service has been following computed tomography scan of the head has been ordered, EKG repeat is pending, pulmonary-quiñones have patient has been doing better remains afebrile no significant respiratory secretions are seen FiO2 is down to 40% remains on PEEP of 10 and tidal volume of 500 rate of 16 breathing about 20-24, we can safely bring down the PEEP to 5 now, chest x-ray reviewed bilateral interstitial Petrin is present but now patient appears to be developing bilateral pleural effusion, dialysis is not performed today patient remains on 16 mics of levo fed, remains on broad-spectrum antibiotics, no significant arrhythmias noted, renal function continued to go up, patient to feed is on hold due to high residuals will start Reglan and reattempt in next 24 hours 02/05/2020, patient seen eval reexamined during her medication was resumed and continue breathing over the ventilator, current setting include assist control rate of 16 breathing about 20-24, tidal volume is 500, PEEP is 10, FiO2 is down to 40% now, heart rhythm remains in flutter with paced rhythm bradycardic about 45-50, patient remained on lidocaine drip, the amiodarone has been changed to oral, for hemodynamic support patient remains on 18 mics of levo fed, however it's down from 30 mics from this morning, less cyanosis in hand and toes noted, cultures have been negative, patient is tolerating tube feed well, chest x-ray shows stability, patient remains on broad-spectrum antibiotics for the diabetic foot ulcer and as well as a right-sided aspiration pneumonia on cephapirin Vanco and Flagyl, patient could not tolerate dialysis today due to fluctuation in bloo d pressure and rhythm, will reattempt tomorrow patient is definitely not ready for weaning critical care time 35 minutes 02/04/2020, patient seen and evaluated examined during the round remains on full ventilator support currently on assist control 16, tidal Volume of 500, 10 of PEEP and 50% oxygen, ABGs are stable, chest x-ray revealed stable, continue show dense right-sided infiltrate, but overall is stable, patient is intermittently regarding runs of V. tach, extra dose of amiodarone has been given, cardiovascular services following, patient is on 20 mics of levo fed, Keofeed is stable, patient has discoloration of fingers and toes, due to vasoconstriction related to the vasopressors, A-line and central line has been working labs reviewed, overall given the irritable nature of myocardium long-term prognosis is poor patient remains a full code was discussed cord issue with the family as per request of hospital staff, patient overall appears to not tolerate the CPR or shock in the event need arise, critical care time 35 minutes 02/03/2020, patient seen and evaluated examined during the rounds sedated with propofol drip about 30 mics patient is on full vent support, hypoxia Signi ficantly worse after V. fib cardiac arrest have been earlier this morning, patient has been intubated, chest x-ray reviewed, patient is on amiodarone drip, status post ACLS protocol, revived, patient underwent a hemodialysis catheter this morning, currently dialysis is undergoing plan is to remove a liter, patient is on levo fed drip, urgently needed central line and A-line because of poor peripheral IV axis and risk of externalization of vasopressors, still have coffee-ground material coming but severity appears to improve gastric secretions light and now patient is on Armaan Keofeed can be started, patient has third spacing and tissue edema with ecchymosis and bruising upper extremity, also has diabetic foot ulcer, patient remains on broad-spectrum antibiotic with Cefepime, we'll add vancomycin with pharmacy to dose, vent setting currently include assist control with PEEP of 10 FiO2 is 60% oxygen saturations were dropping into high 80s FiO2 increase to 70%, critical care time spent 35 minutes 02/02/2020, patient seen eval examined during the rounds labs reviewed medications reviewed, patient remains on dobutamine drip off of dopamine drip he is on Lasix 50 mg an hour, patient due to gastric distention was the having coffee-ground and Mrs. however hemoglobin remained stable white cell count went up to 15,000, patient INR isn't therapeutic range now,, patient has been on prot on pump inhibitor, a computed tomography scan of the abdominal and pelvis has been performed which has been reviewed no gastric outlet obstruction has been noted but stomach may be slightly distended due to air, arterial blood gas have been reviewed adequate ventilation and oxygenation is present x-ray however suggestive of the fluid overload with bilateral pleural effusion not much change, renal functions remains on the higher level, patient likely will need hemodialysis with volume removal, care plan discussed with the staff further recommendations pending plan of care as per clinical response of the patient 02/01/2020, patient seen eval examined during the rounds, he remains afebrile, hemodynamic status stable however the blood pressure continue be on the low side oxygen saturation is 98% on 2 L, patient remains on breathing treatments and broad-spectrum antibiotics, do vitamin have been on hold due to tachycardia however remains on Lasix drip, Coumadin remains on hold recommend to check on a daily basis and resume Coumadin once is okay from cardiovascular services 01/31/2020, patient seen eval examined during the rounds has history of oxygen breathing status stable, saturation is 90-93%, patient has been on dobutamine and dopamine and Lasix strip, INR is coming down, BUN/creatinine slightly up This is a 79-year-old male who was seen evaluated examined on third floor, barbara schulte came into the hospital with progressive shortness of breath associated with last 1-2 weeks with increased swelling progressively from the 4 extremities to mid abdominal level in addition patient appears to be having diabetic foot infection with edema and redness in the toes as well in the left foot, patient is arousable but tired on 3 L oxygen, patient is to be started on Lasix drip along with dobutamine drip, patient has a history of COPD chronic systolic heart failure chronic atrial fibrillation diabetes along with chronic renal failure stage IV, currently patient is on WelChol dilators in the form of DuoNeb, ID service has been requested for antibiotics, his chest x-ray consistent with congestive heart failure fluid overload and pulmonary edema in addition to his interstitial edema and small bilateral pleural effusion Objective - Vital Signs Vital signs: Vital Signs Temp 97.7 F 02/13/20 11:30 Pulse 70 02/13/20 12:00 Resp 14 02/13/20 12:00 BP 143/38 02/13/20 11:30 Pulse Ox 98 02/13/20 11:30 Intake & Output 02/12/20 02/13/20 02/13/20 18:59 06:59 18:59 Intake Total 397.425 824.564 475 Output Total 24 50 5010 Balance 373.425 774.564 -9526 Weight 100.8 kg 102 kg Intake: IV 184 553 315 Artline flush 24 33 15 Piperacillin-Tazobactam 3 100 100 .375 gm In Sodium Chloride 0.9% 100 ml @ 25 mls/hr IVPB Q12HR ENRI[facility] Rx #:[id number] Sodium Chloride 0.9% 1, 160 220 100 000 ml @ 20 mls/hr IV . Q24H ENRIQUE Rx#:[id number] Valproate Sodium 250 mg 200 100 In Sodium Chloride 0.9% 100 ml @ 100 mls/hr IVPB Q6HR ENRIQUE Rx#:[id number] Intake, IV Titration 13.425 1.564 Amount Norepinephrine 32 mg In 13.425 1.564 Sodium Chloride 0.9% 218 ml @ 0.3 MCG/KG/MIN 13. 458 mls/hr IV .[id number] ENRIQUE Rx#:[id number] Tube Feeding 140 180 100 Other 60 90 60 Output: Urine 24 50 10 Hemodialysis 2500 Other 2500 Other: Voiding Method Indwelling Catheter Indwelling Catheter Indwelling Catheter # Bowel Movements 1 ABP, PAP, CO, CI - Last Documented Arterial Blood Pressure 109/28 - Exam Intubated sedated on full respiratory support diffuse ecchymosis edema and third spacing - Constitutional General appearance: disheveled, mild distress, morbidly obese, unresponsive to deep sternal rub - Neck Neck: Supple Carotids: bilateral: upstroke normal - Respiratory Respiratory: bilateral: diminished, dullness, rales bronchial breath sounds especially on the right side - Cardiovascular Rhythm: regular Heart sounds: normal: S1, S2 - Gastrointestinal General gastrointestinal: normal bowel sounds, soft - Musculoskeletal Musculoskeletal: generalized weakness, strength equal bilaterally - Psychiatric Psychiatric: Sedated on full ventilator support Edema involving the lower extremity up to the abdominal level, in addition left diabetic foot involvement of the toes - Labs CBC & Chem 7: 02/13/20 04:10 02/13/20 04:10 Labs: Abnormal Lab Results - Last 24 Hours (Table) 02/13/20 02/13/20 02/13/20 Range/Units 04:10 04:10 04:10 RBC 3.03 L (4.30-5.90) m/uL Hgb 8.6 L (13.0-17.5) gm/dL Hct 28.8 L (39.0-53.0) % MCHC 30.0 L (31.0-37.0) g/dL RDW 16.9 H (11.5-15.5) % Plt Count 109 L (150-450) k/uL Lymphocytes # 0.6 L (1.0-4.8) k/uL PT 23.6 H (9.0-12.0) sec INR 2.4 H (<1.2) ABG pO2 (83-108) mmHg ABG O2 Saturation (94-97) % BUN 36 H (9-20) mg/dL Creatinine 3.80 H (0.66-1.25) mg/dL Glucose 100 H (74-99) mg/dL POC Glucose (mg/dL) (75-99) mg/dL Calcium 7.7 L (8.4-10.2) mg/dL 02/13/20 02/13/20 Range/Units 05:06 05:07 RBC (4.30-5.90) m/uL Hgb (13.0-17.5) gm/dL Hct (39.0-53.0) % MCHC (31.0-37.0) g/dL RDW (11.5-15.5) % Plt Count (150-450) k/uL Lymphocytes # (1.0-4.8) k/uL PT (9.0-12.0) sec INR (<1.2) ABG pO2 115 H (83-108) mmHg ABG O2 Saturation 98.4 H (94-97) % BUN (9-20) mg/dL Creatinine (0.66-1.25) mg/dL Glucose (74-99) mg/dL POC Glucose (mg/dL) 101 H (75-99) mg/dL Calcium (8.4-10.2) mg/dL Assessment and Plan Assessment: Altered mental status encephalopathy/coma likely related component of anoxic injury to brain cannot be excluded now off of propofol patient is spontaneously opening his eyes Status post cardiopulmonary arrest Intermittent runs of V. tach rhythm appears to be more organized now on lidocaine and amiodarone Aspiration pneumonia Status post V. fib cardiac arrest Acute on chronic renal failure mostly appears to be cardiorenal, now on dialysis continuously daily basis Upper GI coffee-ground emesis likely due to stress ulceration patient has been on Protonix, stable Acute on chronic hypoxic respiratory failure Acute on chronic heart failure related to systolic heart failure Left foot with inflammation involving toes Bilateral pleural effusion Bilateral basal atelectasis COPD without exacerbation Severe leg uncontrolled diabetes with chronic complication with worsening Chronic atrial fibrillation Coagulopathy with elevated PT/INR, Coumadin is on hold Stage IV chronic renal failure baseline Plan: We'll continue to provide supportive care, patient probably will require tracheostomy and PEG tube insertion will see in next few days in the meantime we'll try CPAP and pressure support trial Continue to attempt hemodialysis as planned, currently undergoing daily hemodialysis neurology is following, patient is being planned for follow-up EEG Continue tube feed as tolerated with a lower rate Observe patient off of the levo fed as well as lidocaine drip Continue to monitor patient closely in ICU Replace electrolytes Continue oral amiodarone Continue broad-spectrum antibiotics with Zosyn Continue ventilator adjustment as needed and tolerated Hypothermia protocol not available in this institution Continue bronchodilators Labs and chest x-ray have been ordered for tomorrow As far as pleural effusion is concerned will monitor and observe no plans for thoracentesis Monitor renal functions and electrolytes closely Continue Coumadin for now monitor observe PT/INR closely, keep it between 2 and 3 Further recommendations pending plan of care as per clinical response of patient, long-term prognosis poor, patient is DO NOT RESUSCITATE CODE STATUS per family request Time with Patient: Greater than 30
--- NOTE | 2020-02-13 17:42 | PN ---
PROGRESS NOTE DATE OF SERVICE: 02/13/2020 This 79-year-old gentleman who was admitted with CHF, acute exacerbation, also had prolonged cardiac arrest secondary to ventricular fibrillation. The patient is suspected to have anoxic injury, but some response is being noted at this time. The patient also had an EEG done yesterday which was read by neurologist Dr. Abraham. It showed normal, predominantly drowsy EEG with brief wakefulness. There was an improvement, electroencephalographic noted. The patient's hemoglobin is 8.6. The most recent chest x-ray, which was reviewed personally by me, showed significant lesions bilaterally, right more that the left, at this time. The cultures are showing Corynebacterium striatum in the sputum. Past medical history reviewed. Review of systems could not be taken; the patient is mechanically intubated. CURRENT MEDICATIONS: Reviewed. They include: 1. DuoNeb q.i.d. and p.r.n. 2. Cordarone 200 mg p.o. b.i.d. 3. Rocaltrol. 4. Sinemet 10/100 one p.o. b.i.d. 5. Coreg 3.125 mg p.o. b.i.d. 6. Peridex. 7. Aranesp. 8. NovoLog scale. 9. Imdur 15 mg p.o. daily. 10.Replacement protocol. 11.Levophed drip. 12.Protonix. 13.Zosyn IV. 14.Senokot. 15.Flomax. 16.Valproic acid. 17.Coumadin 5 mg p.o. once. PHYSICAL EXAMINATION: Patient is mechanically ventilated and sedated. Pulse 49, blood pressure 102/50, respiration 18, temperature 98 degrees, pulse ox 97% on 40% FiO2. HEENT: Conjunctivae normal. Oral mucosa moist. NECK: No jugular venous distention. No carotid bruit. No lymph node enlargement. CARDIOVASCULAR SYSTEM: S1, S2 muffled. RESPIRATORY SYSTEM: Breath sounds diminished at the bases. A few scattered rhonchi and crackles. ABDOMEN: Soft, non-tender. LEGS: No edema. No swelling. NERVOUS SYSTEM: Patient is mechanically ventilated and sedated. LABS: WBC is 6.2, hemoglobin is 8.6, platelets are 109. Otherwise, creatinine is 3.80. ASSESSMENT: 1. Congestive heart failure, acute exacerbation, with acute on chronic systolic dysfunction with acute hypoxic respiratory failure, on mechanical ventilation. 2. Acute metabolic encephalopathy, multifactorial. Rule out anoxic brain injury. 3. Acute cardiorespiratory arrest secondary to ventricular fibrillation. 4. Bradycardia. 5. Diffuse cerebral dysfunction on the EEG, improving. 6. Sepsis, septic shock, multifactorial. 7. Possible bilateral pneumonia, right more than the left, possibly aspiration pneumonia with acute hypoxic respiratory failure and sepsis, present on admission. 8. Congestive heart failure, acute exacerbation, with acute on chronic systolic dysfunction, ejection fraction 20% to 25%. 9. Bilateral pleural effusion. 10.Bibasilar atelectasis. 11.History of gastrointestinal bleed. 12.Hypercoagulopathy. 13.History of nonsustained ventricular tachycardia. 14.History of chronic atrial fibrillation. 15.Moderate aortic stenosis and severe mitral regurgitation. 16.History of tricuspid regurgitation. 17.Acute on chronic renal failure, stage IV. 18.Diabetes mellitus, type 2. 19.Hypertension. 20.Hyperlipidemia. 21.Acute right lower extremity cellulitis. 22.Chronic obstructive pulmonary disease. 23.Anemia, normocytic anemia of chronic disease. 24.Thrombocytopenia. 25.NO CODE NO CPR NO VENT. RECOMMENDATIONS AND DISCUSSION: In this 79-year-old gentleman who presented with multiple complex medical issues, we will monitor the patient closely, continue the current medications, continue with symptomatic treatment. I would recommend continuing with diuretics. We will watch for the bradycardia. Monitor PT, INR closely. Cultures are noted as above. Prognosis guarded because of multiple complex medical issues. Further recommendations to follow. CELESTE / PETRAN: [id number] /
[2020-02-13] MEDS: NOREPINEPHRINE 32 MG in SODIUM CHLORIDE 0.9% 218 ML IV SCH (17:56)
[2020-02-13] MEDS ORDERED: WARFARIN 5 MG TAB PO ONE (18:00)
[2020-02-13] MEDS: TAMSULOSIN 0.4 MG CAP.ER.24H PO SCH (19:44)
[2020-02-13] MEDS: MONTELUKAST 10 MG TAB PO SCH (19:44)
[2020-02-13] MEDS: IPRATROPIUM-ALBUTEROL 3 ML NEB INHALATION PRN (23:39)
[2020-02-13 23:54] LABS: Glucose,Whole Blood 105 mg/dL (75-99)
[2020-02-14] MEDS: INSULIN ASPART (NovoLOG) 100 UNIT/ML VIAL SQ SCH ×5 (00:01→23:22)
[2020-02-14] MEDS: VALPROATE SODIUM 250 MG in SODIUM CHLORIDE 0.9% 100 ML IVPB SCH ×5 (00:06→23:27)
--- NOTE | 2020-02-14 02:58 | PN ---
PROGRESS NOTE DATE OF SERVICE: 02/13/2020 REASON FOR FOLLOWUP: Aspiration pneumonia. INTERVAL HISTORY: The patient is currently afebrile. The patient is breathing comfortably. The patient remains to be intubated on the vent. Hemodynamically stable not requiring any pressor support. No significant purulent secretion through the ET or any diarrhea has been reported. PHYSICAL EXAMINATION: Blood pressure 109/74 with a pulse of 49, temperature is 98. He is 98% on 40% FiO2. General description is elderly male intubated on the vent. RESPIRATORY SYSTEM: Unlabored breathing, clear to auscultation anteriorly. HEART: S1, S2. Regular rate and rhythm. ABDOMEN: Soft, no tenderness. LABS: Hemoglobin 8.6, white count 6.2, BUN of 36, creatinine 3.80. DIAGNOSTIC IMPRESSION AND PLAN: Patient with acute respiratory failure which is likely multifactorial in this patient with component of pneumonia, likely aspiration etiology. Sputum has been negative for resistant pathogen so far. The patient is currently covered with Zosyn to continue while waiting for his condition to stabilize and continue supportive care. MMODL / IJN: [id number] /
[2020-02-14] MEDS: IPRATROPIUM-ALBUTEROL 3 ML NEB INHALATION PRN (03:27)
[2020-02-14 04:42] LABS: Anisocytosis Slight; Basophils % (A) 0 %; Eosinophils # (A) 0.3 k/uL (0-0.7); Eosinophils % (A) 5 %; HCT 29.5 % (39.0-53.0); HGB 8.9 gm/dL (13.0-17.5); Hypochromasia Marked; Lymphocytes # (A) 0.6 k/uL (1.0-4.8); Lymphocytes % (A) 11 %; MCH 28.7 pg (25.0-35.0); MCHC 30.1 g/dL (31.0-37.0); MCV 95.4 fL (80.0-100.0); Monocytes # (A) 0.4 k/uL (0-1.0); Monocytes % (A) 7 %; Neutrophils # (A) 4.5 k/uL (1.3-7.7); Neutrophils % (A) 75 %; Platelet Count 100 k/uL (150-450); RBC 3.09 m/uL (4.30-5.90); RDW 16.9 % (11.5-15.5)
[2020-02-14 05:03] LABS: Albumin 2.3 g/dL (3.5-5.0); Calcium 7.8 mg/dL (8.4-10.2); Potassium 3.6 mmol/L (3.5-5.1); Total Bilirubin 0.7 mg/dL (0.2-1.3); Total Protein 5.1 g/dL (6.3-8.2)
[2020-02-14 06:54] LABS: INR 2.9 (<1.2)
--- NOTE | 2020-02-14 07:15 | XR ---
EXAMINATION TYPE: XR chest 1V portable DATE OF EXAM: 02/14/2020 CLINICAL HISTORY: Difficulty breathing progress study. TECHNIQUE: Single AP portable upright view of the chest is obtained. COMPARISON: Chest x-ray from one day earlier and older studies. FINDINGS: Stable right internal jugular central venous catheter, endotracheal, and orogastric tubes. Persistent cardiomegaly with dual lead pacemaker and atherosclerotic thoracic aorta. 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 Upper lungs remain clear without pneumothorax. Osseous structures are intact. IMPRESSION: Chronic emphysematous change and cardiomegaly with small left greater than right pleural effusions and associated bilateral mid to lower lung acute infiltrate and/or atelectasis are all rede monstrated, no significant change from one day earlier.
[2020-02-14] MEDS: NOREPINEPHRINE 32 MG in SODIUM CHLORIDE 0.9% 218 ML IV SCH (08:05)
[2020-02-14] MEDS: ISOSORBIDE MONONITRATE ER 15 MG TAB PO SCH (08:28)
[2020-02-14] MEDS: CARBIDOPA-LEVODOPA 10-100 MG 1 EACH TAB PO SCH ×2 (08:28→20:21)
[2020-02-14] MEDS: SENNOSIDES 8.6 MG TAB PO SCH ×2 (08:28→20:21)
[2020-02-14] MEDS: CARVEDILOL 3.125 MG TAB PO SCH ×2 (08:28→20:21)
[2020-02-14] MEDS: AMIODARONE 200 MG TAB PO SCH ×2 (08:28→20:21)
[2020-02-14] MEDS: PANTOPRAZOLE 40 MG/10 ML VIAL IVP SCH ×2 (08:29→20:21)
[2020-02-14] MEDS: CHLORHEXIDINE GLUCONATE 15 ML CUP MUCOUS MEM SCH ×2 (08:29→20:21)
[2020-02-14] MEDS: PIPERACILLIN-TAZOBACTAM 3.375 GM in SODIUM CHLORIDE 0.9% 100 ML IVPB SCH ×2 (08:34→20:22)
[2020-02-14] MEDS: IPRATROPIUM-ALBUTEROL 3 ML NEB INHALATION SCH ×4 (08:34→19:25)
[2020-02-14] MEDS ORDERED: POTASSIUM CHLORIDE ER 20 MEQ TAB.ER PO STA (10:41)
--- NOTE | 2020-02-14 10:44 | P.PN ---
Subjective Patient is seen in follow-up for end-stage renal disease. He was started on hemodialysis this admission. Currently intubated. On 40% FiO2. Off Levophed. Has been undergoing daily dialysis this past week mostly for ultrafiltration. No changes overnight. Vital signs are stable. Off vasopressors. General: The patient appeared well nourished and normally developed. HEENT: Head exam is unremarkable. Neck is without jugular venous distension. NG tube noted. LUNGS: Breath sounds decreased. HEART: Rate and Rhythm are regular. ABDOMEN: Soft, nontender. EXTREMITITES: 1+ edema. Scrotal edema noted. Objective - Vital Signs Vital signs: Vital Signs Temp 98.2 F 02/14/20 08:00 Pulse 73 02/14/20 10:00 Resp 14 02/14/20 10:00 BP 130/78 02/14/20 10:00 Pulse Ox 100 02/14/20 10:00 Intake & Output 02/13/20 02/14/20 02/14/20 18:59 06:59 18:59 Intake Total 561 683 313 Output Total 5010 40 10 Balance -4449 643 303 Weight 99.9 kg Intake: IV 361 353 183 Artline flush 21 33 3 Piperacillin-Tazobactam 3 100 100 100 .375 gm In Sodium Chloride 0.9% 100 ml @ 25 mls/hr IVPB Q12HR [facility] Rx #:[id number] Sodium Chloride 0.9% 1, 140 220 80 000 ml @ 20 mls/hr IV . Q24H [facility] Rx#:[id number] Valproate Sodium 250 mg 100 In Sodium Chloride 0.9% 100 ml @ 100 mls/hr IVPB Q6HR [facility] Rx#:[id number] Tube Feeding 140 240 100 Other 60 90 30 Output: Urine 10 40 10 Hemodialysis 2500 Other 2500 Other: Voiding Method Indwelling Catheter Indwelling Catheter Indwelling Catheter # Bowel Movements 1 ABP, PAP, CO, CI - Last Documented Arterial Blood Pressure 163/42 - Labs CBC & Chem 7: 02/14/20 04:20 02/14/20 04:20 Labs: Abnormal Lab Results - Last 24 Hours (Table) 02/07/20 02/13/20 02/14/20 Range/Units 03:55 23:52 04:20 RBC 3.09 L (4.30-5.90) m/uL Hgb 8.9 L (13.0-17.5) gm/dL Hct 29.5 L (39.0-53.0) % MCHC 30.1 L (31.0-37.0) g/dL RDW 16.9 H (11.5-15.5) % Plt Count 100 L (150-450) k/uL Lymphocytes # 0.6 L (1.0-4.8) k/uL PT (9.0-12.0) sec INR (<1.2) BUN (9-20) mg/dL Creatinine (0.66-1.25) mg/dL Glucose (74-99) mg/dL POC Glucose (mg/dL) 105 H (75-99) mg/dL Calcium (8.4-10.2) mg/dL Total Protein (6.3-8.2) g/dL Albumin (3.5-5.0) g/dL Free Valproic Acid 4.6 L (4.8-17.3) mg/L 02/14/20 02/14/20 Range/Units 04:20 06:30 RBC (4.30-5.90) m/uL Hgb (13.0-17.5) gm/dL Hct (39.0-53.0) % MCHC (31.0-37.0) g/dL RDW (11.5-15.5) % Plt Count (150-450) k/uL Lymphocytes # (1.0-4.8) k/uL PT 28.0 H (9.0-12.0) sec INR 2.9 H (<1.2) BUN 28 H (9-20) mg/dL Creatinine 3.42 H (0.66-1.25) mg/dL Glucose 101 H (74-99) mg/dL POC Glucose (mg/dL) (75-99) mg/dL Calcium 7.8 L (8.4-10.2) mg/dL Total Protein 5.1 L (6.3-8.2) g/dL Albumin 2.3 L (3.5-5.0) g/dL Free Valproic Acid (4.8-17.3) mg/L Assessment and Plan Plan: Assessment: 1. End-stage renal disease secondary to cardiorenal syndrome and diabetic kidney disease started on hemodialysis this admission. 2. Status post cardiac arrest, now off lidocaine drip. On amiodarone. 3. Acute on chronic systolic CHF with ejection fraction of 25-30% with moderate aortic stenosis, moderate to severe mitral regurgitation, severe tricuspid reg urgitation and severe pulmonary hypertension. 4. Volume overload. Improving with diuresis. 5. Insulin-dependent diabetes mellitus. 6. Chronic kidney disease mineral bone disease maintained on calcitriol. 7. Anemia of chronic kidney disease maintained on Aranesp. 8. Aspiration pneumonia maintain on antibiotics. Sputum culture positive for Corynebacterium. Plan: Continue with daily dialysis for now mostly for ultrafiltration. Wean FiO2 - did not do well with weaning yesterday. May require tracheostomy. Continue tube feedings. Prognosis guarded.
[2020-02-14 12:02] LABS: Glucose,Whole Blood 112 mg/dL (75-99)
--- NOTE | 2020-02-14 16:30 | P.GSCN ---
History of Present Illness Consult date: 02/14/20 Reason for Consult: Trach and PEG History of present illness: This is a-year-old male who is status post cardiac arrest. Patient has developed metabolic encephalopathy. He is restricted failure. He has protein, addition. I've asked him regarding tracheostomy and PEG tube placement Past Medical History Past Medical History: Atrial Fibrillation, Heart Failure, Diabetes Mellitus, GERD/Reflux, Hyperlipidemia, Hypertension, Osteoarthritis (OA), Renal Disease Additional Past Medical History / Comment(s): Cardiomyopathy, pulmonary hypertension, pt denies COPD as previously charted, pt no longer has hyperlipidemia-taken off medication, IDDM type II, bilateral feet peripheral neuropathy, recent past L great toe ulcer/osteomylitis-gram negative skin tammie, CKD stage IV-has occluded fistula L arm (never recieved dialysis), UTI with sepsis, chronic back/neck pain,. PUD, Left great toe osteomyelitis - 2017 History of Any Multi-Drug Resistant Organisms: None Reported Past Surgical History: Adenoidectomy, Orthopedic Surgery, Pacemaker, Tonsillectomy Additional Past Surgical History / Comment(s): lumbar facet blocks, lt breast cyst removed as child, bilateral cataract removal with lens implants,. Fistula left upper arm to use for dialysis-never used it-pt's stated "it's been occluded for 5 years", colonoscopy, picc line insertion/since removed. Total right knee replacement 02/2018 Past Anesthesia/Blood Transfusion Reactions: No Reported Reaction Type of Cardiac Device: Permanent Pacemaker Device Placement Date:: 2012 Past Psychological History: No Psychological Hx Reported Additional Psychological History / Comment(s): pt lives with his beckie in a 2 story home that has 1 front step and 12 steps to 2nd level where bedroom is. has 1 pet bird. no outside services recieved and no medical equipment. Pt drives. Smoking Status: Never smoker Past Alcohol Use History: Rare Additional Past Alcohol Use History / Comment(s): STARTED SMOKING 1964, QUIT 1993- 1-2 ppd Past Drug Use History: None Reported - Past Family History Mother Family Medical History: Diabetes Mellitus Additional Family Medical History / Comment(s): type 2 in her 70's Father Family Medical History: Diabetes Mellitus Additional Family Medical History / Comment(s): dm type 2 in his 70's Medications and Allergies Home Medications Medication Instructions Recorded Confirmed Type Isosorbide Mononitrate [Isosorbide 15 mg PO DAILY@0900 11/12/15 01/29/20 History Mononitrate ER] Montelukast [Singulair] 10 mg PO HS 11/12/15 01/29/20 History Calcitriol 0.5 mcg PO SUTH 08/10/17 01/29/20 History INSULIN LISPRO (humaLOG) [humaLOG] See Protocol SQ ACHS 09/22/17 01/29/20 History Carbidopa-Levodopa 10-100 mg 1 tab PO BID 08/08/18 01/29/20 History [Sinemet 10-100 mg] Albuterol Sulfate [Ventolin HFA] 2 puff INHALATION RT-Q6H PRN 01/29/20 01/29/20 History Allopurinol [Zyloprim] 100 mg PO Q12H 01/29/20 01/29/20 History Ammonium Lactate Cream [Lac-Hydrin 1 applic TOPICAL HS 01/29/20 01/29/20 History 12% Cream] Carvedilol [Coreg] 12.5 mg PO BID 01/29/20 01/29/20 History Furosemide [Lasix] 20 mg PO BID 01/29/20 01/29/20 History Ipratropium-Albuterol Nebulize 3 ml INHALATION RT-Q8H PRN 01/29/20 01/29/20 History [Duoneb 0.5 mg-3 mg/3 ml Soln] Potassium Chloride [Klor-Con 10] 10 meq PO DAILY 01/29/20 01/29/20 History Warfarin Sodium [Coumadin] 5 mg PO SUMOWEFR 01/29/20 01/29/20 History Warfarin [Coumadin] 7.5 mg PO TUTHSA 01/29/20 01/29/20 History Zolpidem [Ambien] 10 mg PO HS 01/29/20 01/29/20 History oxyCODONE HCL [oxyCODONE HCL (IR)] 10 mg PO Q8H PRN 01/29/20 01/29/20 History Allergies Allergy/AdvReac Type Severity Reaction Status Date / Time midodrine Allergy Rash/Hives Verified 01/29/20 17:26 sodium bicarbonate Allergy Itching Verified 01/29/20 17:26 Surgical - Exam Vital Signs Temp Pulse Resp BP Pulse Ox 97.7 F 79 27 H 121/64 97 01/29/20 14:21 01/29/20 14:21 01/29/20 14:21 01/29/20 14:21 01/29/20 14:21 - Neck no masses - Abdomen Abdomen: soft, non tender Results - Labs 02/14/20 04:20 02/14/20 04:20 Abnormal Lab Results - Last 24 Hours (Table) 02/07/20 02/13/20 02/14/20 Range/Units 03:55 23:52 04:20 RBC 3.09 L (4.30-5.90) m/uL Hgb 8.9 L (13.0-17.5) gm/dL Hct 29.5 L (39.0-53.0) % MCHC 30.1 L (31.0-37.0) g/dL RDW 16.9 H (11.5-15.5) % Plt Count 100 L (150-450) k/uL Lymphocytes # 0.6 L (1.0-4.8) k/uL PT (9.0-12.0) sec INR (<1.2) BUN (9-20) mg/dL Creatinine (0.66-1.25) mg/dL Glucose (74-99) mg/dL POC Glucose (mg/dL) 105 H (75-99) mg/dL Calcium (8.4-10.2) mg/dL Total Protein (6.3-8.2) g/dL Albumin (3.5-5.0) g/dL Free Valproic Acid 4.6 L (4.8-17.3) mg/L 02/14/20 02/14/20 02/14/20 Range/Units 04:20 06:30 12:00 RBC (4.30-5.90) m/uL Hgb (13.0-17.5) gm/dL Hct (39.0-53.0) % MCHC (31.0-37.0) g/dL RDW (11.5-15.5) % Plt Count (150-450) k/uL Lymphocytes # (1.0-4.8) k/uL PT 28.0 H (9.0-12.0) sec INR 2.9 H (<1.2) BUN 28 H (9-20) mg/dL Creatinine 3.42 H (0.66-1.25) mg/dL Glucose 101 H (74-99) mg/dL POC Glucose (mg/dL) 112 H (75-99) mg/dL Calcium 7.8 L (8.4-10.2) mg/dL Total Protein 5.1 L (6.3-8.2) g/dL Albumin 2.3 L (3.5-5.0) g/dL Free Valproic Acid (4.8-17.3) mg/L Diabetes panel 02/14/20 Range/Units 04:20 Sodium 138 (137-145) mmol/L Potassium 3.6 (3.5-5.1) mmol/L Chloride 107 (98-107) mmol/L Carbon Dioxide 23 (22-30) mmol/L BUN 28 H (9-20) mg/dL Creatinine 3.42 H (0.66-1.25) mg/dL Glucose 101 H (74-99) mg/dL Calcium 7.8 L (8.4-10.2) mg/dL AST 34 (17-59) U/L ALT 6 (4-49) U/L Alkaline Phosphatase 105 (38-126) U/L Total Protein 5.1 L (6.3-8.2) g/dL Albumin 2.3 L (3.5-5.0) g/dL Calcium panel 02/14/20 Range/Units 04:20 Calcium 7.8 L (8.4-10.2) mg/dL Albumin 2.3 L (3.5-5.0) g/dL Pituitary panel 02/14/20 Range/Units 04:20 Sodium 138 (137-145) mmol/L Potassium 3.6 (3.5-5.1) mmol/L Chloride 107 (98-107) mmol/L Carbon Dioxide 23 (22-30) mmol/L BUN 28 H (9-20) mg/dL Creatinine 3.42 H (0.66-1.25) mg/dL Glucose 101 H (74-99) mg/dL Calcium 7.8 L (8.4-10.2) mg/dL Adrenal panel 02/14/20 Range/Units 04:20 Sodium 138 (137-145) mmol/L Potassium 3.6 (3.5-5.1) mmol/L Chloride 107 (98-107) mmol/L Carbon Dioxide 23 (22-30) mmol/L BUN 28 H (9-20) mg/dL Creatinine 3.42 H (0.66-1.25) mg/dL Glucose 101 H (74-99) mg/dL Calcium 7.8 L (8.4-10.2) mg/dL Total Bilirubin 0.7 (0.2-1.3) mg/dL AST 34 (17-59) U/L ALT 6 (4-49) U/L Alkaline Phosphatase 105 (38-126) U/L Total Protein 5.1 L (6.3-8.2) g/dL Albumin 2.3 L (3.5-5.0) g/dL Assessment and Plan Assessment: Respiratory failure Protein calorie mild attrition of We'll perform tracheostomy and PEG tube placement.
--- NOTE | 2020-02-14 16:41 | P.PN ---
Subjective Progress Note Date: 02/14/20 Principal diagnosis: Metabolic encephalopathy/altered mental status Status post cardiopulmonary arrest Intermittent runs of V. tach Aspiration pneumonia Acute hypoxic respiratory failure Acute on chronic renal failure Upper GI bleed/coffee-ground emesis Gastric distention Acute on chronic heart failure related to systolic heart failure Left foot with inflammation involving toes Bilateral pleural effusion Bilateral basal atelectasis COPD without exacerbation Severe leg uncontrolled diabetes with chronic complication with worsening Chronic atrial fibrillation Coagulopathy with elevated PT/INR, Coumadin is on hold Stage IV chronic renal failure 02/14/2020, patient seen eval examined during the rounds awake responding to simple physical stimuli, eyes open, patient did not tolerate the CPAP pressure support trial yesterday, very weak, patient is scheduled for getting hemodialysis today, yesterday successfully completed no pressors required today so far no presses required now, patient is off of lidocaine, off of vasopressors, ventilator setting is stable with assist control rate of 16 tidal volume of 500, 5 of PEEP, FiO2 is 40%, chest x-ray reviewed bilateral pleural effusion small amount along with interstitial edema seen, patient remains on the Zosyn we'll continue to do attempts of weaning in the meantime have a detailed discussion with the about trach and PEG and permanent dialysis catheter will proceed with it she still wants to discuss it with her other family members, consultation will be initiated awaiting their advice renal care time spent over 35 minutes 02/13/2020, patient seen and evaluated examined during rounds labs reviewed medications reviewed radiographic studies reviewed as well, patient remains on assist control with a rate of the 16 tidal volume of 500 PEEP is 5, oxygen is 40%, mental status appears slightly better as he is spontaneously open eyes and appears to following commands very weak, patient has a transient drop in blood pressure requiring levo fed again however it has been DC'd, patient had dialysis today and another 2.5 L of fluid has been removed, chest x-ray stable in terms of interstitial edema small pleural effusion as well as stable ET tube and NG tube, patient has been tolerating tube feed 20 mL an hour residuals are abnormal 100 mL stable, patient remains on paced rhythm, off of lidocaine, remains on amiodarone oral through the NG tube, patient remains on antibiotics, cultures so far has been negative, hemoglobin stable PT/INR is therapeutic. Blood gas well oxygenated and well ventilated will give him short CPAP pressure support trial with 5 of CPAP and 15 of pressure support of 15 minutes to half an hour 02/12/2020, patient seen eval examined during the rounds mental status remains compromised however patient does respond to deep sternal rub opens eyes spontaneously with that, EEG is showing almost normal wave pattern but with sedated features, hemodynamics remain stable patient remains off of levo fed drip and lidocaine drip no obvious arrhythmia has been seen, patient underwent hemodialysis 1.5 L of fluid has been removed, when setting remains stable on assist control of 16 breathing 20, tidal volume 600, PEEP is 5, oxygen is 40%, her peak airway pressure are 25-26, right-sided infiltrate and bilateral small pleural effusion are stable, tubes and hardware in the lungs are stable, patient has been on tube feed has been on 10 mL an hour will slightly go up on 20 mL an hour will go very slowly as patient is a high risk for high residuals, INR is up to 1.9 on Coumadin, BUN/creatinine continued to improve very slowly, 02/11/2020, patient seen eval examined during the rounds labs reviewed medications reviewed patient does open his eyes with sternal rub however does not follow commands, hemodynamically stable off of levo fed drip off of lidocaine as well, patient remains on oral amiodarone, full ventilator support is being given, vent settings are assist control rate of 16 tidal volume of 600, 5 of PEEP and FiO2 is 40%, respiratory rate is 20-22, peak airway pressure are 24-25, patient had a dialysis successfully performed in 2 L of fluid has been removed, chest x-ray shows bilateral pleural effusion as well as interstitial edema, no globin is 8.8, labs showed BUN/creatinine 58/4.78, white cell count is 8.4, INR slightly better 1.7, patient is being planned for another dialysis tomorrow 02/10/2020, patient seen eval examined during the rounds labs reviewed medications reviewed care plan discussed with the staff at length, mental status slightly appeared to be better as deep sternal rub and pressure patient didn't open his eyes which is a change compared to last 24-48 hours, otherwise patient remains somnolent and lethargic unresponsive, he is off of levo fed drip currently stable hemodynamics heart rate is 60, paced rhythm, he is still on the lidocaine drip, he had an dialysis earlier this morning tolerated very well 2 L of fluid has been removed, x-ray I reviewed his stable, when setting remains stable can assist control rate of 16 breathing about 20, PEEP is 5, tidal volume is 500, peak airway pressure about 20-24, patient remains on broad-spectrum antibiotics, renal functions are stable on dialysis, third spacing infiltrate however it's infiltrate, we'll continue to monitor clinical course patient might require a PEG tube as well as tracheostomy next week, will start tube feeding 10 mL an hour and follow clinical course closely labs reviewed chest x-ray reviewed, patient is resumed on Coumadin, INR today is 2 critical care time spent 35 minutes February 09, 2020, patient seen eval examined during the rounds labs reviewed medications reviewed care plan discussed with the staff at length patient remains poorly responsive , only Corneal Reflexion Very Weak Gag Reflex Patient Remains Intubated and Ventilator Setting Includes Assist Control with 16 Breathing about 20, Tidal Volume 600, HEENT of 5, Oxygen Is 40%, Peak Air Pressures Present, Chest X-Ray Reviewed Shows Right-Sided Pleural Effusion and Right-Sided Infiltrate Stable, Patient Is Due for a CAT Scan Patient Has Multiple EEG Shows Wide Complex Wave Pattern, Could Not Tolerate This Therapy for Now High Residuals, Patient Is Undergoing Hemodialysis Which Is Third Dialysis in the in the row, blood pressure remains labile, she remains on levo fed 7 mics with lidocaine drip, patient remains on the bradycardic, 02/08/2020, patient seen eval examined during the rounds labs reviewed medications reviewed care plan discussed, patient the appears to be developing some coagulopathy due to poor liver functions small dose of vitamin K given, hemodynamically patient's stable but continued to require vasopressors to have a adequate blood pressure currently patient had a dialysis second dialysis today, tolerated very well, however patient remains poorly responsive off of propofol and need For sedation for last 3 days, ventilator remains stable with assist control rate of 16 breathing about 20 to, tidal volume is 600 PEEP of 5, oxygen is 40% now, patient to feed is to be reinitiated, white cell count is 13,000 hemoglobin and hematocrit stable, arterial blood gas stable, x overall stable with the ET tube as well as the line, right basal atelectasis small right-sided pleural effusion not much change, he has some gag and corneal reflexes now, 2 L of fluid has been removed today during dialysis levo fed drip is down to 5 mics 02/07/2020, patient seen eval reexamined during the rounds labs reviewed medications reviewed radiographic studies reviewed as well patient continues to get worsening of pleural effusion requiring emergent dialysis, currently patient is undergoing dialysis 1 L of fluid removed, patient is on 0.1 of levo fed drip which is up from yesterday, patient is off of sedation with propofol for almost 2 days, mental status still compromised patient not breaking up with the sternal rub likely metabolic encephalopathy neurology is also following, when setting includes assist control rate of 16 breathing about 20, tidal volume 600, PEEP is is 5, oxygen is down to 40%, oxygen and oxygenation air entry is better situational 100% patient remains afebrile rest or secretions are minimal, Keofeed is on hold patient has been on Reglan to figure will be started later on once dialysis is over, cardiovascular point patient remains on lidocaine drip, he is on amiodarone oral/through the NG-tube, white cell count is up to 16,000, creatinine is up to 6.43 predialysis 02/06/2020, patient seen eval examined during the rounds labs reviewed medications reviewed care plan discussed with the staff at length, propofol has been discontinued since last night patient remains unresponsive, neurology service has been following computed tomography scan of the head has been ordered, EKG repeat is pending, pulmonary-quiñones have patient has been doing better remains afebrile no significant respiratory secretions are seen FiO2 is down to 40% remains on PEEP of 10 and tidal volume of 500 rate of 16 breathing about 20-24, we can safely bring down the PEEP to 5 now, chest x-ray reviewed bilateral interstitial Petrin is present but now patient appears to be developing bilateral pleural effusion, dialysis is not performed today patient remains on 16 mics of levo fed, remains on broad-spectrum antibiotics, no significant arrhythmias noted, renal function continued to go up, patient to feed is on hold due to high residuals will start Reglan and reattempt in next 24 hours 02/05/2020, patient seen eval reexamined during her medication was resumed and continue breathing over the ventilator, current setting include assist control rate of 16 breathing about 20-24, tidal volume is 500, PEEP is 10, FiO2 is down to 40% now, heart rhythm remains in flutter with paced rhythm bradycardic about 45-50, patient remained on lidocaine drip, the amiodarone has been changed to oral, for hemodynamic support patient remains on 18 mics of levo fed, however it's down from 30 mics from this morning, less cyanosis in hand and toes noted, cultures have been negative, patient is tolerating tube feed well, chest x-ray shows stability, patient remains on broad-spectrum antibiotics for the diabetic foot ulcer and as well as a right-sided aspiration pneumonia on cephapirin Vanco and Flagyl, patient could not tolerate dialysis today due to fluctuation in blood pressure and rhythm, will reattempt tomorrow patient is definitely not ready for weaning critical care time 35 minutes 02/04/2020, patient seen and evaluated examined during the round remains on full ventilator support currently on assist control 16, tidal Volume of 500, 10 of PEEP and 50% oxygen, ABGs are stable, chest x-ray revealed stable, continue show dense right-sided infiltrate, but overall is stable, patient is intermittently regarding runs of V. tach, extra dose of amiodarone has been given, cardiovascular services following, patient is on 20 mics of levo fed, Keofeed is stable, patient has discoloration of fingers and toes, due to vasoconstriction related to the vasopressors, A-line and central line has been working labs reviewed, overall given the irritable nature of myocardium long-term prognosis is poor patient remains a full code was discussed cord issue with the family as per request of hospital staff, patient overall appears to not tolerate the CPR or shock in the event need arise, critical care time 35 minutes 02/03/2020, patient seen and evaluated examined during the rounds sedated with propofol drip about 30 mics patient is on full vent support, hypoxia Significantly worse after V. fib cardiac arrest have been earlier this morning, patient has been intubated, chest x-ray reviewed, patient is on amiodarone drip, status post ACLS protocol, revived, patient underwent a hemodialysis catheter this morning, currently dialysis is undergoing plan is to remove a liter, patient is on levo fed drip, urgently needed central line and A-line because of poor peripheral IV axis and risk of externalization of vasopressors, still have coffee-ground material coming but severity appears to improve gastric secretions light and now patient is on Armaan Keofeed can be started, patient has third spacing and tissue edema with ecchymosis and bruising upper extremity, also has diabetic foot ulcer, patient remains on broad-spectrum antibiotic with Cefepime, we'll add vancomycin with pharmacy to dose, vent setting currently include assist control with PEEP of 10 FiO2 is 60% oxygen saturations were dropping into high 80s FiO2 increase to 70%, critical care time spent 35 minutes 02/02/2020, patient seen eval examined during the rounds labs reviewed medicat ions reviewed, patient remains on dobutamine drip off of dopamine drip he is on Lasix 50 mg an hour, patient due to gastric distention was the having coffee- ground and Mrs. however hemoglobin remained stable white cell count went up to 15,000, patient INR isn't therapeutic range now,, patient has been on proton pump inhibitor, a computed tomography scan of the abdominal and pelvis has been performed which has been reviewed no gastric outlet obstruction has been noted but stomach may be slightly distended due to air, arterial blood gas have been reviewed adequate ventilation and oxygenation is present x-ray however suggestive of the fluid overload with bilateral pleural effusion not much nash ge, renal functions remains on the higher level, patient likely will need hemodialysis with volume removal, care plan discussed with the staff further recommendations pending plan of care as per clinical response of the patient 02/01/2020, patient seen eval examined during the rounds, he remains afebrile, hemodynamic status stable however the blood pressure continue be on the low side oxygen saturation is 98% on 2 L, patient remains on breathing treatments and broad-spectrum antibiotics, do vitamin have been on hold due to tachycardia however remains on Lasix drip, Coumadin remains on hold recommend to check on a daily basis and resume Coumadin once is okay from cardiovascular services 01/31/2020, patient seen eval examined during the rounds has history of oxygen breathing status stable, saturation is 90-93%, patient has been on dobutamine and dopamine and Lasix strip, INR is coming down, BUN/creatinine slightly up This is a 79-year-old male who was seen evaluated examined on third floor, patient came into the hospital with progressive shortness of breath associated with last 1-2 weeks with increased swelling progressively from the 4 extremities to mid abdominal level in addition patient appears to be having diabetic foot infection with edema and redness in the toes as well in the left foot, patient is arousable but tired on 3 L oxygen, patient is to be started on Lasix drip along with dobutamine drip, patient has a history of COPD chronic systolic heart failure chronic atrial fibrillation diabetes along with chronic renal failure stage IV, currently patient is on WelChol dilators in the form of DuoNeb, ID service has been requested for antibiotics, his chest x-ray consistent with congestive heart failure fluid overload and pulmonary edema in addition to his interstitial edema and small bilateral pleural effusion Objective - Vital Signs Vital signs: Vital Signs Temp 98.4 F 02/14/20 12:00 Pulse 71 02/14/20 16:30 Resp 18 02/14/20 16:30 BP 118/59 02/14/20 15:30 Pulse Ox 99 02/14/20 16:00 Intake & Output 02/13/20 02/14/20 02/14/20 18:59 06:59 18:59 Intake Total 561 683 853 Output Total 5010 40 15 Balance -4449 643 838 Weight 99.9 kg Intake: IV 361 353 483 Artline flush 21 33 3 Piperacillin-Tazobactam 3 100 100 100 .375 gm In Sodium Chloride 0.9% 100 ml @ 25 mls/hr IVPB Q12HR [facility] Rx #:[id number] Sodium Chloride 0.9% 1, 140 220 280 000 ml @ 20 mls/hr IV . Q24H [facility] Rx#:[id number] Valproate Sodium 250 mg 100 100 In Sodium Chloride 0.9% 100 ml @ 100 mls/hr IVPB Q6HR [facility] Rx#:[id number] Tube Feeding 140 240 280 Other 60 90 90 Output: Urine 10 40 15 Hemodialysis 2500 Other 2500 Other: Voiding Method Indwelling Catheter Indwelling Catheter Indwelling Catheter # Bowel Movements 1 ABP, PAP, CO, CI - Last Documented Arterial Blood Pressure 137/36 - Exam Intubated sedated on full respiratory support diffuse ecchymosis edema and third spacing - Constitutional General appearance: disheveled, mild distress, morbidly obese, unresponsive to deep sternal rub - Neck Neck: Supple Carotids: bilateral: upstroke normal - Respiratory Respiratory: bilateral: diminished, dullness, rales bronchial breath sounds especially on the right side - Cardiovascular Rhythm: regular Heart sounds: normal: S1, S2 - Gastrointestinal General gastrointestinal: normal bowel sounds, soft - Musculoskeletal Musculoskeletal: generalized weakness, strength equal bilaterally - Psychiatric Psychiatric: Sedated on full ventilator support Edema involving the lower extremity up to the abdominal level, in addition left diabetic foot involvement of the toes - Labs CBC & Chem 7: 02/14/20 04:20 02/14/20 04:20 Labs: Abnormal Lab Results - Last 24 Hours (Table) 02/07/20 02/13/20 02/14/20 Range/Units 03:55 23:52 04:20 RBC 3.09 L (4.30-5.90) m/uL Hgb 8.9 L (13.0-17.5) gm/dL Hct 29.5 L (39.0-53.0) % MCHC 30.1 L (31.0-37.0) g/dL RDW 16.9 H (11.5-15.5) % Plt Count 100 L (150-450) k/uL Lymphocytes # 0.6 L (1.0-4.8) k/uL PT (9.0-12.0) sec INR (<1.2) BUN (9-20) mg/dL Creatinine (0.66-1.25) mg/dL Glucose (74-99) mg/dL POC Glucose (mg/dL) 105 H (75-99) mg/dL Calcium (8.4-10.2) mg/dL Total Protein (6.3-8.2) g/dL Albumin (3.5-5.0) g/dL Free Valproic Acid 4.6 L (4.8-17.3) mg/L 02/14/20 02/14/20 02/14/20 Range/Units 04:20 06:30 12:00 RBC (4.30-5.90) m/uL Hgb (13.0-17.5) gm/dL Hct (39.0-53.0) % MCHC (31.0-37.0) g/dL RDW (11.5-15.5) % Plt Count (150-450) k/uL Lymphocytes # (1.0-4.8) k/uL PT 28.0 H (9.0-12.0) sec INR 2.9 H (<1.2) BUN 28 H (9-20) mg/dL Creatinine 3.42 H (0.66-1.25) mg/dL Glucose 101 H (74-99) mg/dL POC Glucose (mg/dL) 112 H (75-99) mg/dL Calcium 7.8 L (8.4-10.2) mg/dL Total Protein 5.1 L (6.3-8.2) g/dL Albumin 2.3 L (3.5-5.0) g/dL Free Valproic Acid (4.8-17.3) mg/L Assessment and Plan Assessment: Altered mental status encephalopathy/coma likely related component of anoxic injury to brain cannot be excluded now off of propofol patient is spontaneously opening his eyes and appears to be following simple commands Status post cardiopulmonary arrest Intermittent runs of V. tach rhythm appears to be more organized now on lidocaine and amiodarone Aspiration pneumonia Status post V. fib cardiac arrest Acute on chronic renal failure mostly appears to be cardiorenal, now on dialysis continuously daily basis Upper GI coffee-ground emesis likely due to stress ulceration patient has been on Protonix, stable Acute on chronic hypoxic respiratory failure Acute on chronic heart failure related to systolic heart failure Left foot with inflammation involving toes Bilateral pleural effusion Bilateral basal atelectasis COPD without exacerbation Severe leg uncontrolled diabetes with chronic complication with worsening Chronic atrial fibrillation Coagulopathy with elevated PT/INR, Coumadin is on hold Stage IV chronic renal failure baseline Plan: Proceed with the trach and PEG and hemodialysis catheter placement if family agrees We'll continue to provide supportive care, patient probably will require tracheostomy and PEG tube insertion will see in next few days in the meantime we'll try CPAP and pressure support trial as tolerated Continue to attempt hemodialysis as planned, currently undergoing daily hemodialysis neurology is following, Continue tube feed as tolerated with a lower rate Observe patient off of the levo fed as well as lidocaine drip Continue to monitor patient closely in ICU Replace electrolytes Continue oral amiodarone Continue broad-spectrum antibiotics with Zosyn Continue ventilator adjustment as needed and tolerated Hypothermia protocol not available in this institution Continue bronchodilators Labs and chest x-ray have been ordered for tomorrow As far as pleural effusion is concerned will monitor and observe no plans for thoracentesis Monitor renal functions and electrolytes closely We will hold Coumadin for now for anticipation of trach and PEG and dialysis catheter Further recommendations pending plan of care as per clinical response of patient, long-term prognosis poor, patient is DO NOT RESUSCITATE CODE STATUS per family request Time with Patient: Greater than 30
--- NOTE | 2020-02-14 17:07 | PN ---
PROGRESS NOTE DATE OF SERVICE: 02/14/2020 REASON FOR FOLLOWUP: Aspiration pneumonia. INTERVAL HISTORY: The patient is currently afebrile. The patient remains hemodynamically stable, not on any pressor support. FiO2 is currently down to 40%. No purulent secretion through the ET or any diarrhea reported. PHYSICAL EXAMINATION: Blood pressure 117/49 with a pulse of 73, temperature of 98.4. He is 100% on 40% FiO2. General description is an elderly male intubated on the vent. RESPIRATORY SYSTEM: Unlabored breathing. Clear to auscultation anteriorly. HEART: S1, S2. Regular rate and rhythm. ABDOMEN: Soft. No tenderness. LABS: Hemoglobin 8.9, white count 6.0, BUN of 28, creatinine 3.42. DIAGNOSTIC IMPRESSION AND PLAN: Patient with acute respiratory failure which is likely multifactorial with a concern for possible aspiration pneumonitis. The patient is currently on Zosyn; to continue, and we will monitor his clinical course closely. Continue with supportive care. MMODL / IJN: [id number] /
[2020-02-14] MEDS ORDERED: WARFARIN 5 MG TAB PO ONE (18:00)
[2020-02-14 18:08] LABS: Glucose,Whole Blood 112 mg/dL (75-99)
--- NOTE | 2020-02-14 18:38 | PN ---
PROGRESS NOTE I am covering for Dr. Bynum. DATE OF SERVICE: 02/14/2020 This 79-year-old gentleman who was admitted with CHF, acute exacerbation, also had cardiac arrest. The patient is on mechanical ventilation. Significant neurologic impairment was suspected, but the EEG showed some improvement, according to Dr. Abraham, the neurologist. The patient also is slightly more responsive to commands. The patient is being closely monitored. The patient is off pressors at this time. The patient also some bradycardia, which is improving at this time. Past medical history reviewed. Review of systems could not be taken; the patient is mechanically ventilated and sedated. CURRENT MEDICATIONS: Reviewed. They include: 1. DuoNeb q.i.d. and p.r.n. 2. Cordarone 200 mg p.o. b.i.d. 3. Rocaltrol. 4. Sinemet b.i.d. 5. Coreg 3.125 mg p.o. b.i.d. 6. Peridex. 7. Aranesp. 8. NovoLog. 9. Imdur. 10.Narcan. 11.Norepinephrine. 12.Zosyn 3.375 IV q.8. 13.Senokot. 14.Flomax. 15.Valproic acid. PHYSICAL EXAMINATION: Patient is mechanically ventilated and sedated. Pulse is 124, blood pressure 118/59, respirations 16, temperature normal, pulse ox 100% on mechanical ventilation, 40% FiO2. HEENT: Conjunctivae normal. Oral mucosa moist. NECK: No jugular venous distention. No carotid bruit. No lymph node enlargement. CARDIOVASCULAR SYSTEM: S1, S2 muffled. RESPIRATORY SYSTEM: Breath sounds diminished at the bases. Bilateral scattered rhonchi and crackles. Expiratory wheezing also present. ABDOMEN: Soft, non-tender. No mass palpable. LEGS: No edema. No swelling. NERVOUS SYSTEM: Diffusely weak. LABS: Labs at this time show WBC 6, hemoglobin 8.9, platelets 100. INR is 2.9 and creatinine is 3.42. ASSESSMENT: 1. Congestive heart failure, acute exacerbation, with acute on chronic systolic dysfunction with acute hypoxic respiratory failure, on mechanical ventilation. 2. Acute metabolic encephalopathy, multifactorial. Rule out anoxic brain injury. 3. Acute cardiorespiratory arrest secondary to ventricular fibrillation. 4. Bradycardia. 5. Diffuse cerebral dysfunction on the EEG, improving slowly. 6. Sepsis, septic shock, multifactorial. 7. Possible bilateral pneumonia, right more than left, with possible aspiration with acute hypoxic respiratory failure and sepsis, present on admission. 8. Congestive heart failure, acute exacerbation, with acute on chronic systolic dysfunction, ejection fraction 20% to 25%. 9. Bilateral pleural effusion. 10.Bibasilar atelectasis. 11.History of gastrointestinal bleed. 12.Hypercoagulopathy. 13.History of nonsustained ventricular tachycardia. 14.History of chronic atrial fibrillation. 15.Moderate aortic stenosis with severe mitral regurgitation. 16.History of tricuspid regurgitation. 17.Acute on chronic renal failure, stage IV. 18.Diabetes mellitus, type 2. 19.Hypertension. 20.Hyperlipidemia. 21.Acute on chronic lower extremity cellulitis. 22.Chronic obstructive pulmonary disease. 23.Anemia, normocytic anemia of chronic disease. 24.Thrombocytopenia. 25.NO CODE, NO CPR, NO VENT. RECOMMENDATIONS AND DISCUSSION: In this 79-year-old gentleman who presented with multiple medical issues, at this time I recommend continuing with current medications. Continue with mechanical ventilation. Monitor fluid/electrolyte balance closely. Creatinine is 3.42. Will follow closely with Neurology. Currently patient is NO CODE. Will closely follow with Dr. Ann regarding the further weaning attempts. Once again, the prognosis is guarded. Further recommendations to follow. MMODL / IJN: [id number] /
[2020-02-14] MEDS: SODIUM CHLORIDE 0.9% 1,000 ML IV SCH (19:50)
[2020-02-14] MEDS: MONTELUKAST 10 MG TAB PO SCH (20:21)
[2020-02-14] MEDS: TAMSULOSIN 0.4 MG CAP.ER.24H PO SCH (20:21)
[2020-02-14 23:23] LABS: Glucose,Whole Blood 121 mg/dL (75-99)
[2020-02-15] MEDS: NOREPINEPHRINE 32 MG in SODIUM CHLORIDE 0.9% 218 ML IV SCH (03:50)
[2020-02-15] MEDS: INSULIN ASPART (NovoLOG) 100 UNIT/ML VIAL SQ SCH ×3 (05:05→18:30)
[2020-02-15 05:06] LABS: Glucose,Whole Blood 131 mg/dL (75-99)
[2020-02-15] MEDS: VALPROATE SODIUM 250 MG in SODIUM CHLORIDE 0.9% 100 ML IVPB SCH ×3 (05:07→18:35)
[2020-02-15] MEDS: IPRATROPIUM-ALBUTEROL 3 ML NEB INHALATION SCH ×4 (08:35→20:08)
--- NOTE | 2020-02-15 09:24 | P.PN ---
Subjective Patient is seen in follow-up for end-stage renal disease. He was started on hemodialysis this admission. Currently intubated. On 40% FiO2. Off Levophed. Has been undergoing daily dialysis this past week mostly for ultrafiltration. No changes overnight. Vital signs are stable. Off vasopressors. General: The patient appeared well nourished and normally developed. HEENT: Head exam is unremarkable. Neck is without jugular venous distension. NG tube noted. LUNGS: Breath sounds decreased. HEART: Rate and Rhythm are regular. ABDOMEN: Soft, nontender. EXTREMITITES: 1+ edema. Scrotal edema noted. Objective - Vital Signs Vital signs: Vital Signs Temp 98.1 F 02/15/20 03:30 Pulse 71 02/15/20 08:36 Resp 19 02/15/20 07:00 BP 128/52 02/15/20 07:00 Pulse Ox 97 02/15/20 07:00 Intake & Output 02/14/20 02/15/20 02/15/20 18:59 06:59 18:59 Intake Total 933 1023 43 Output Total 20 2055 0 Balance 913 -1032 43 Weight 97.3 kg Intake: IV 523 673 23 Artline flush 3 33 3 Piperacillin-Tazobactam 3 100 100 .375 gm In Sodium Chloride 0.9% 100 ml @ 25 mls/hr IVPB Q12HR [facility] Rx #:[id number] Sodium Chloride 0.9% 1, 320 240 20 000 ml @ 20 mls/hr IV . Q24H [facility] Rx#:[id number] Valproate Sodium 250 mg 100 300 In Sodium Chloride 0.9% 100 ml @ 100 mls/hr IVPB Q6HR [facility] Rx#:[id number] Tube Feeding 320 260 20 Other 90 90 Output: Urine 20 55 0 Hemodialysis 2000 Other: Voiding Method Indwelling Catheter Indwelling Catheter ABP, PAP, CO, CI - Last Documented Arterial Blood Pressure 149/46 - Labs CBC & Chem 7: 02/14/20 04:20 02/14/20 04:20 Labs: Abnormal Lab Results - Last 24 Hours (Table) 02/14/20 02/14/20 02/14/20 Range/Units 12:00 18:06 23:21 POC Glucose (mg/dL) 112 H 112 H 121 H (75-99) mg/dL 05/28/20 Range/Units 05:04 POC Glucose (mg/dL) 131 H (75-99) mg/dL Assessment and Plan Plan: Assessment: 1. End-stage renal disease secondary to cardiorenal syndrome and diabetic kidney disease started on hemodialysis this admission. 2. Status post cardiac arrest, now off lidocaine drip. On amiodarone. 3. Acute on chronic systolic CHF with ejection fraction of 25-30% with moderate aortic stenosis, moderate to severe mitral regurgitation, severe tricuspid regurgitation and severe pulmonary hypertension. 4. Volume overload. Improving with diuresis. 5. Insulin-dependent diabetes mellitus. 6. Chronic kidney disease mineral bone disease maintained on calcitriol. 7. Anemia of chronic kidney disease maintained on Aranesp. 8. Aspiration pneumonia maintain on antibiotics. Sputum culture positive for Corynebacterium. Plan: Discontinue dialysis. Family has decided to proceed with comfort measures.
[2020-02-15] MEDS ORDERED: ATROPINE OPHTH SOLN 1% 5ML BTL SUBLINGUAL PRN (09:26)
[2020-02-15] MEDS ORDERED: LORazepam 2 MG/ML INJ IV PRN (09:26)
[2020-02-15] MEDS ORDERED: MORPHINE SULFATE (100 MG/2 ML) 100 MG in SODIUM CHLORIDE 0.9% 100 ML IV SCH (09:30)
[2020-02-15] MEDS: AMIODARONE 200 MG TAB PO SCH ×2 (09:32→22:06)
[2020-02-15] MEDS: CARBIDOPA-LEVODOPA 10-100 MG 1 EACH TAB PO SCH ×2 (09:32→22:06)
[2020-02-15] MEDS: CALCITRIOL 0.25 MCG CAP PO SCH (09:32)
[2020-02-15] MEDS: CARVEDILOL 3.125 MG TAB PO SCH ×2 (10:27→22:10)
[2020-02-15] MEDS: ISOSORBIDE MONONITRATE ER 15 MG TAB PO SCH (10:28)
[2020-02-15] MEDS: PIPERACILLIN-TAZOBACTAM 3.375 GM in SODIUM CHLORIDE 0.9% 100 ML IVPB SCH ×2 (10:28→22:09)
[2020-02-15] MEDS: PANTOPRAZOLE 40 MG/10 ML VIAL IVP SCH ×2 (10:28→22:09)
[2020-02-15] MEDS: SENNOSIDES 8.6 MG TAB PO SCH ×2 (10:28→22:10)
[2020-02-15] MEDS: SCOPOLAMINE 1.5MG/72HR PATCH TRANSDERM SCH (10:30)
[2020-02-15] MEDS: CHLORHEXIDINE GLUCONATE 15 ML CUP MUCOUS MEM SCH ×2 (10:30→22:09)
[2020-02-15] MEDS: MORPHINE SULFATE 2 MG/ML SYRINGE IV PRN (10:37)
[2020-02-15 12:13] LABS: Glucose,Whole Blood 104 mg/dL (75-99)
[2020-02-15] MEDS ORDERED: FUROSEMIDE 10 MG/ML 10 ML VIAL IV STA (14:08)
[2020-02-15] MEDS: SODIUM CHLORIDE 0.9% 1,000 ML IV SCH (14:12)
--- NOTE | 2020-02-15 16:37 | PN ---
PROGRESS NOTE I am covering for Dr. Bynum. DATE OF SERVICE: 02/15/2020 This 79-year-old gentleman who was admitted with CHF, acute exacerbation, also had acute metabolic encephalopathy. The patient was also suspected to have acute anoxic brain injury initially, but subsequently today the patient is extubated. The patient is being closely monitored. The patient also had new-onset hemodialysis. The patient is confused, unable to give a coherent history; most of the history is taken from my discussion with staff as well as discussion with Brenda, who is the patient's , at the bedside. Past medical history reviewed. Review of systems could not be taken, as mentioned earlier. CURRENT MEDICATIONS: Reviewed. They include: 1. DuoNeb q.i.d. and p.r.n. 2. Cordarone 200 mg p.o. b.i.d. 3. Isopto. 4. Rocaltrol 0.5 mg. 5. Sinemet 10/100 one p.o. b.i.d. 6. Coreg 3.125 b.i.d. 7. Peridex. 8. Aranesp. 9. NovoLog. 10.Imdur. 11.P.r.n. medication. 12.Narcan. 13.Zosyn 3.375 IV b.i.d. 14.Senna. 15.Flomax 0.4 daily. 16.Valproic acid. PHYSICAL EXAMINATION: Patient is alert, oriented x3. Pulse is 78, blood pressure 114/46, respiration 20, temperature normal, pulse ox 98% on 2 L. HEENT: Conjunctivae normal. NECK: No jugular venous distention. CARDIOVASCULAR SYSTEM: S1, S2 muffled. RESPIRATORY SYSTEM: Breath sounds diminished at the bases. A few scattered rhonchi and crackles. ABDOMEN: Soft, non-tender. LEGS: No edema. No swelling. NERVOUS SYSTEM: No focal deficit. LABS: WBC 6, hemoglobin 8.9. INR is 2.9. Creatinine is 3.42. ASSESSMENT: 1. Congestive heart failure, acute exacerbation, with acute on chronic systolic dysfunction with acute hypoxic respiratory failure, status post mechanical ventilation. 2. Metabolic encephalopathy, acute, multifactorial. 3. Acute cardiorespiratory arrest secondary to ventricular fibrillation. 4. Bradycardia. 5. Diffuse cerebral dysfunction on EEG. 6. Acute renal failure, on hemodialysis. 7. Sepsis, septic shock, multifactorial. 8. Possible bilateral pneumonia, right more than left, possibly aspiration with acute hypoxic respiratory failure and sepsis, present on admission. 9. Congestive heart failure, acute exacerbation, with acute on chronic systolic dysfunction, ejection fraction 20% to 25%. 10.Bilateral pleural effusion. 11.Bibasilar atelectasis. 12.History of gastrointestinal bleed. 13.History of hypercoagulopathy. 14.History of nonsustained ventricular tachycardia. 15.History of chronic atrial fibrillation. 16.Moderate aortic stenosis with severe mitral regurgitation. 17.History of tricuspid regurgitation. 18.Acute on chronic renal failure, stage IV. 19.Diabetes mellitus, type 2. 20.Hypertension. 21.Hyperlipidemia. 22.Acute on chronic lower extremity cellulitis. 23.Chronic obstructive pulmonary disease. 24.Anemia, normocytic anemia of chronic disease. 25.Thrombocytopenia. 26.NO CODE, NO CPR, NO VENT. RECOMMENDATIONS AND DISCUSSION: In this 79-year-old gentleman who presented with multiple complex medical issues, at this time the patient is being extubated. I would recommend to continue current medications. Hemodialysis per Nephrology. Discussed at length with the patient's . Overall prognosis is guarded, but currently the patient would like to continue with NO CODE, NO CPR, NO VENT and rest of the medications. We will continue to monitor. Will order a chest x-ray tomorrow morning and closely follow with multiple consultants. Further recommendations to follow. CELESTE / ZENY: [id number] /
[2020-02-15 17:17] LABS: Glucose,Whole Blood 99 mg/dL (75-99)
[2020-02-15] MEDS: TAMSULOSIN 0.4 MG CAP.ER.24H PO SCH (22:10)
[2020-02-15] MEDS: MONTELUKAST 10 MG TAB PO SCH (22:10)
--- NOTE | 2020-02-15 22:15 | P.PN ---
Subjective Progress Note Date: 02/15/20 (Critical care time 35 minutes) Principal diagnosis: Metabolic encephalopathy/altered mental status Status post cardiopulmonary arrest Intermittent runs of V. tach Aspiration pneumonia Acute hypoxic respiratory failure Acute on chronic renal failure Upper GI bleed/coffee-ground emesis Gastric distention Acute on chronic heart failure related to systolic heart failure Left foot with inflammation involving toes Bilateral pleural effusion Bilateral basal atelectasis COPD without exacerbation Severe leg uncontrolled diabetes with chronic complication with worsening Chronic atrial fibrillation Coagulopathy with elevated PT/INR, Coumadin is on hold Stage IV chronic renal failure 02/15/2020, patient seen and evaluated examined during the rounds labs reviewed medications reviewed care plan discussed, care plan also discussed with the who was initially thinking about trach and PEG and after conversation with the rest of the family member elected not to proceed with that rather extubation, patient has been extubated successfully currently on 2 L oxygen he is minimally responsive spontaneously does open eyes sometimes tracks also, currently he is o n 2 L oxygen saturating well, but he has a poor gag patient will be evaluated for his speech and swallow in the morning, family is thinking about possible hospice versus continuation of hemodialysis, today dialysis have been performed patient has a component of non-oliguric renal failure, dialysis dependent due to cardiorenal failure, remains on A. fib heart rate is well controlled,, most of the old medications cannot be given as patient cannot swallow 02/14/2020, patient seen eval examined during the rounds awake responding to simple physical stimuli, eyes open, patient did not tolerate the CPAP pressure support trial yesterday, very weak, patient is scheduled for getting hemodialysis today, yesterday successfully completed no pressors required today so far no presses required now, patient is off of lidocaine, off of vasopressors, ventilator setting is stable with assist control rate of 16 tidal volume of 500, 5 of PEEP, FiO2 is 40%, chest x-ray reviewed bilateral pleural effusion small amount along with interstitial edema seen, patient remains on the Zosyn we'll continue to do attempts of weaning in the meantime have a detailed discussion with the about trach and PEG and permanent dialysis catheter will proceed with it she still wants to discuss it with her other family shahram torres, consultation will be initiated awaiting their advice renal care time spent over 35 minutes 02/13/2020, patient seen and evaluated examined during rounds labs reviewed medications reviewed radiographic studies reviewed as well, patient remains on assist control with a rate of the 16 tidal volume of 500 PEEP is 5, oxygen is 40%, mental status appears slightly better as he is spontaneously open eyes and appears to following commands very weak, patient has a transient drop in blood pressure requiring levo fed again however it has been DC'd, patient had dialysis today and another 2.5 L of fluid has been removed, chest x-ray stable in terms of interstitial edema small pleural effusion as well as stable ET tube and NG tube, patient has been tolerating tube feed 20 mL an hour residuals are abnormal 100 mL stable, patient remains on paced rhythm, off of lidocaine, remains on amiodarone oral through the NG tube, patient remains on antibiotics, cultures so far has been negative, hemoglobin stable PT/INR is therapeutic. Blood gas well oxygenated and well ventilated will give him short CPAP pressure support trial with 5 of CPAP and 15 of pressure support of 15 minutes to half an hour 02/12/2020, patient seen eval examined during the rounds mental status remains compromised however patient does respond to deep sternal rub opens eyes spontaneously with that, EEG is showing almost normal wave pattern but with sedated features, hemodynamics remain stable patient remains off of levo fed drip and lidocaine drip no obvious arrhythmia has been seen, patient underwent hemodialysis 1.5 L of fluid has been removed, when setting remains stable on assist control of 16 breathing 20, tidal volume 600, PEEP is 5, oxygen is 40%, her peak airway pressure are 25-26, right-sided infiltrate and bilateral small pleural effusion are stable, tubes and hardware in the lungs are stable, patient has been on tube feed has been on 10 mL an hour will slightly go up on 20 mL an hour will go very slowly as patient is a high risk for high residuals, INR is up to 1.9 on Coumadin, BUN/creatinine continued to improve very slowly, 02/11/2020, patient seen eval examined during the rounds labs reviewed medications reviewed patient does open his eyes with sternal rub however does not follow commands, hemodynamically stable off of levo fed drip off of lidocaine as well, patient remains on oral amiodarone, full ventilator support is being given, vent settings are assist control rate of 16 tidal volume of 600, 5 of PEEP and FiO2 is 40%, respiratory rate is 20-22, peak airway pressure are 24-25, patient had a dialysis successfully performed in 2 L of fluid has been removed, chest x-ray shows bilateral pleural effusion as well as interstitial edema, no globin is 8.8, labs showed BUN/creatinine 58/4.78, white cell count is 8.4, INR slightly better 1.7, patient is being planned for another dialysis tomorrow 02/10/2020, patient seen eval examined during the rounds labs reviewed medications reviewed care plan discussed with the staff at length, mental status slightly appeared to be better as deep sternal rub and pressure patient didn't open his eyes which is a change compared to last 24-48 hours, otherwise patient remains somnolent and lethargic unresponsive, he is off of levo fed drip c urrently stable hemodynamics heart rate is 60, paced rhythm, he is still on the lidocaine drip, he had an dialysis earlier this morning tolerated very well 2 L of fluid has been removed, x-ray I reviewed his stable, when setting remains stable can assist control rate of 16 breathing about 20, PEEP is 5, tidal volume is 500, peak airway pressure about 20-24, patient remains on broad-spectrum antibiotics, renal functions are stable on dialysis, third spacing infiltrate however it's infiltrate, we'll continue to monitor clinical course patient might require a PEG tube as well as tracheostomy next week, will start tube feeding 10 mL an hour and follow clinical course closely labs reviewed chest x-ray reviewed, patient is resumed on Coumadin, INR today is 2 critical care time spent 35 minutes February 09, 2020, patient seen eval examined during the rounds labs reviewed medications reviewed care plan discussed with the staff at length patient remains poorly responsive , only Corneal Reflexion Very Weak Gag Reflex Patient Remains Intubated and Ventilator Setting Includes Assist Control with 16 Breathing about 20, Tidal Volume 600, HEENT of 5, Oxygen Is 40%, Peak Air Pressures Present, Chest X-Ray Reviewed Shows Right-Sided Pleural Effusion and Right-Sided Infiltrate Stable, Patient Is Due for a CAT Scan Patient Has Multiple EEG Shows Wide Complex Wave Pattern, Could Not Tolerate This Therapy for Now High Residuals, Patient Is Undergoing Hemodialysis Which Is Third Dialysis in the in the row, blood pressure remains labile, she remains on levo fed 7 mics with lidocaine drip, patient remains on the bradycardic, 02/08/2020, patient seen eval examined during the rounds labs reviewed med ications reviewed care plan discussed, patient the appears to be developing some coagulopathy due to poor liver functions small dose of vitamin K given, hemodynamically patient's stable but continued to require vasopressors to have a adequate blood pressure currently patient had a dialysis second dialysis today, tolerated very well, however patient remains poorly responsive off of propofol and need For sedation for last 3 days, ventilator remains stable with assist control rate of 16 breathing about 20 to, tidal volume is 600 PEEP of 5, oxygen is 40% now, patient to feed is to be reinitiated, white cell count is 13,000 hemoglobin and hematocrit stable, arterial blood gas stable, x overall stable with the ET tube as well as the line, right basal atelectasis small right-sided pleural effusion not much change, he has some gag and corneal reflexes now, 2 L of fluid has been removed today during dialysis levo fed drip is down to 5 mics 02/07/2020, patient seen eval reexamined during the rounds labs reviewed medications reviewed radiographic studies reviewed as well patient continues to get worsening of pleural effusion requiring emergent dialysis, currently patient is undergoing dialysis 1 L of fluid removed, patient is on 0.1 of levo fed drip which is up from yesterday, patient is off of sedation with propofol for almost 2 days, mental status still compromised patient not breaking up with the sternal rub likely metabolic encephalopathy neurology is also following, when setting i ncludes assist control rate of 16 breathing about 20, tidal volume 600, PEEP is is 5, oxygen is down to 40%, oxygen and oxygenation air entry is better situational 100% patient remains afebrile rest or secretions are minimal, Keofeed is on hold patient has been on Reglan to figure will be started later on once dialysis is over, cardiovascular point patient remains on lidocaine drip, he is on amiodarone oral/through the NG-tube, white cell count is up to 16,000, creatinine is up to 6.43 predialysis 02/06/2020, patient seen eval examined during the rounds labs reviewed medications reviewed care plan discussed with the staff at length, propofol has been discontinued since last night patient remains unresponsive, neurology service has been following computed tomography scan of the head has been ordered, EKG repeat is pending, pulmonary-quiñones have patient has been doing better remains afebrile no significant respiratory secretions are seen FiO2 is down to 40% remains on PEEP of 10 and tidal volume of 500 rate of 16 breathing about 20-24, we can safely bring down the PEEP to 5 now, chest x-ray reviewed bilateral interstitial Petrin is present but now patient appears to be developing bilateral pleural effusion, dialysis is not performed today patient remains on 16 mics of levo fed, remains on broad-spectrum antibiotics, no significant arrhythmias noted, renal function continued to go up, patient to feed is on hold due to high residuals will start Reglan and reattempt in next 24 hours 02/05/2020, patient seen eval reexamined during her medication was resumed and continue breathing over the ventilator, current setting include assist control rate of 16 breathing about 20-24, tidal volume is 500, PEEP is 10, FiO2 is down to 40% now, heart rhythm remains in flutter with paced rhythm bradycardic about 45-50, patient remained on lidocaine drip, the amiodarone has been changed to oral, for hemodynamic support patient remains on 18 mics of levo fed, however it's down from 30 mics from this morning, less cyanosis in hand and toes noted, cultures have been negative, patient is tolerating tube feed well, chest x-ray shows stability, patient remains on broad-spectrum antibiotics for the diabetic foot ulcer and as well as a right-sided aspiration pneumonia on cephapirin Vanco and Flagyl, patient could not tolerate dialysis today due to fluctuation in blood pressure and rhythm, will reattempt tomorrow patient is definitely not ready for weaning critical care time 35 minutes 02/04/2020, patient seen and evaluated examined during the round remains on full ventilator support currently on assist control 16, tidal Volume of 500, 10 of PEEP and 50% oxygen, ABGs are stable, chest x-ray revealed stable, continue show dense right-sided infiltrate, but overall is stable, patient is intermittently regarding runs of V. tach, extra dose of amiodarone has been given, cardiovascular services following, patient is on 20 mics of levo fed, Keofeed is stable, patient has discoloration of fingers and toes, due to vasoconstriction related to the vasopressors, A-line and central line has been working labs reviewed, overall given the irritable nature of myocardium long-term prognosis is poor patient remains a full code was discussed cord issue with the family as per request of hospital staff, patient overall appears to not tolerate the CPR or shock in the event need arise, critical care time 35 minutes 02/03/2020, patient seen and evaluated examined during the rounds sedated with propofol drip about 30 mics patient is on full vent support, hypoxia Significantly worse after V. fib cardiac arrest have been earlier this morning, patient has been intubated, chest x-ray reviewed, patient is on amiodarone drip, status post ACLS protocol, revived, patient underwent a hemodialysis catheter this morning, currently dialysis is undergoing plan is to remove a liter, patient is on levo fed drip, urgently needed central line and A-line because of poor peripheral IV axis and risk of externalization of vasopressors, still have coffee-ground material coming but severity appears to improve gastric secretions light and now patient is on Armaan Keofeed can be started, patient has third spacing and tissue edema with ecchymosis and bruising upper extremity, also has diabetic foot ulcer, patient remains on broad-spectrum antibiotic with Cefepime, we'll add vancomycin with pharmacy to dose, vent setting currently include assist control with PEEP of 10 FiO2 is 60% oxygen saturations were dropping into high 80s FiO2 increase to 70%, critical care time spent 35 minutes 02/02/2020, patient seen eval examined during the rounds labs reviewed medications reviewed, patient remains on dobutamine drip off of dopamine drip he is on Lasix 50 mg an hour, patient due to gastric distention was the having coffee-ground and Mrs. however hemoglobin remained stable white cell count went up to 15,000, patient INR isn't therapeutic range now,, patient has been on proton pump inhibitor, a computed tomography scan of the abdominal and pelvis has been performed which has been reviewed no gastric outlet obstruction has been noted but stomach may be slightly distended due to air, arterial blood gas have been reviewed adequate ventilation and oxygenation is present x-ray however suggestive of the fluid overload with bilateral pleural effusion not much change, renal functions remains on the higher level, patient likely will need hemodialysis with volume removal, care plan discussed with the staff further recommendations pending plan of care as per clinical response of the patient 02/01/2020, patient seen eval examined during the rounds, he remains afebrile, hemodynamic status stable however the blood pressure continue be on the low side oxygen saturation is 98% on 2 L, patient remains on breathing treatments and broad-spectrum antibiotics, do vitamin have been on hold due to tachycardia however remains on Lasix drip, Coumadin remains on hold recommend to check on a daily basis and resume Coumadin once is okay from cardiovascular services 01/31/2020, patient seen eval examined during the rounds has history of oxygen breathing status stable, saturation is 90-93%, patient has been on dobutamine and dopamine and Lasix strip, INR is coming down, BUN/creatinine slightly up This is a 79-year-old male who was seen evaluated examined on third floor, patient came into the hospital with progressive shortness of breath associated with last 1-2 weeks with increased swelling progressively from the 4 extremities to mid abdominal level in addition patient appears to be having diabetic foot infection with edema and redness in the toes as well in the left foot, patient is arousable but tired on 3 L oxygen, patient is to be started on Lasix drip along with dobutamine drip, patient has a history of COPD chronic systolic heart failure chronic atrial fibrillation diabetes along with chronic renal failure stage IV, currently patient is on WelChol dilators in the form of DuoNeb, ID service has been requested for antibiotics, his chest x-ray consistent with congestive heart failure fluid overload and pulmonary edema in addition to his interstitial edema and small bilateral pleural effusion Objective - Vital Signs Vital signs: Vital Signs Temp 97.9 F 02/15/20 20:00 Pulse 82 02/15/20 21:00 Resp 20 02/15/20 21:00 BP 128/46 02/15/20 21:00 Pulse Ox 96 02/15/20 21:00 Intake & Output 02/15/20 02/15/20 02/16/20 06:59 18:59 06:59 Intake Total 1023 463 40 Output Total 8819 2960 50 Balance -1032 -767 -10 Weight 97.3 kg 97.3 kg Intake: IV 673 443 40 Artline flush 33 3 Piperacillin-Tazobactam 3 100 .375 gm In Sodium Chloride 0.9% 100 ml @ 25 mls/hr IVPB Q12HR [facility] Rx #:[id number] Sodium Chloride 0.9% 1, 240 240 40 000 ml @ 20 mls/hr IV . Q24H [facility]RI[facility] Rx#:[id number] Valproate Sodium 250 mg 300 200 In Sodium Chloride 0.9% 100 ml @ 100 mls/hr IVPB Q6HR [facility]RI[facility] Rx#:[id number] Tube Feeding 260 20 Other 90 Output: Urine 55 30 50 Hemodialysis 2000 1200 Other: Voiding Method Indwelling Catheter Indwelling Catheter Indwelling Catheter ABP, PAP, CO, CI - Last Documented Arterial Blood Pressure 136/40 - Exam Extubated now perforated wishes of the family on 2 L oxygen intermittently does open his eyes but remains somnolent and lethargic - Constitutional General appearance: disheveled, mild distress, morbidly obese, unresponsive to deep sternal rub - Neck Neck: Supple Carotids: bilateral: upstroke normal - Respiratory Respiratory: bilateral: diminished, dullness, rales bronchial breath sounds especially on the right side - Cardiovascular Rhythm: regular Heart sounds: normal: S1, S2 - Gastrointestinal General gastrointestinal: normal bowel sounds, soft - Musculoskeletal Musculoskeletal: generalized weakness, strength equal bilaterally - Psychiatric Psychiatric: Intermittent follow commands very weak with poor gag Edema involving the lower extremity up to the abdominal level, in addition left diabetic foot involvement of the toes - Labs CBC & Chem 7: 02/14/20 04:20 02/14/20 04:20 Labs: Abnormal Lab Results - Last 24 Hours (Table) 02/14/20 02/15/20 02/15/20 Range/Units 23:21 05:04 12:12 POC Glucose (mg/dL) 121 H 131 H 104 H (75-99) mg/dL Assessment and Plan Assessment: Altered mental status encephalopathy/coma likely related component of 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 fib cardiac arrest Status post cardiopulmonary arrest Intermittent runs of V. tach rhythm appears to be more organized now on oral amiodarone Acute on chronic renal failure mostly appears to be cardiorenal, now on dialysis continuously daily basis Upper GI coffee-ground emesis likely due to stress ulceration patient has been on Protonix, stable Acute on chronic hypoxic respiratory failure Acute on chronic heart failure related to systolic heart failure Left foot with inflammation involving toes Bilateral pleural effusion Bilateral basal atelectasis COPD without exacerbation Severe leg uncontrolled diabetes with chronic complication with worsening Chronic atrial fibrillation Coagulopathy with elevated PT/INR, Coumadin is on hold Stage IV chronic renal failure baseline Plan: Plans to closely monitor this patient on this with a spontaneous breathing and nasal cannula family has refused trach and PEG elected for extubation, awaiting their advice for further plan of care patient cannot take any of the by mouth medicines so is being Nothing by mouth remains at a high risk of aspiration related complications due to his mental status and poor gag Continue to attempt hemodialysis as planned, currently undergoing daily hemo dialysis until further advice and recommendations from the family, patient is currently no code neurology is following, Observe patient off of the levo fed as well as lidocaine drip Continue to monitor patient closely in ICU, depending upon further advised the family patient can be moved out Replace electrolytes Continue broad-spectrum antibiotics with Zosyn Continue bronchodilators Labs have been ordered for tomorrow Monitor renal functions and electrolytes closely We will hold Coumadin for now Further recommendations pending plan of care as per clinical response of patient, long-term prognosis poor, patient is DO NOT RESUSCITATE CODE STATUS per family request, awaiting family's advice Time with Patient: Greater than 30
--- NOTE | 2020-02-15 23:19 | PN ---
PROGRESS NOTE DATE OF SERVICE: 02/15/2020 REASON FOR FOLLOWUP: Aspiration pneumonia. INTERVAL HISTORY: The patient was seen on rounds this afternoon. The patient has been extubated, currently breathing comfortably on nasal cannula oxygen. The patient remains to be lethargic and is unable to provide any history. No vomiting or diarrhea has been reported by nursing staff. PHYSICAL EXAMINATION: Blood pressure 139/40 with a pulse of 77, temperature 97.9. He is 98% on 2 L nasal cannula. General description is an elderly male lying in bed in no distress. RESPIRATORY SYSTEM: Unlabored breathing, decreased breath sounds at the bases. No wheeze. HEART: S1, S2. Regular rate and rhythm. ABDOMEN: Soft, no distention. EXTREMITIES: No edema of the feet. LABS: Hemoglobin 8.9, white count 6.0, BUN of 28, creatinine is 3.42. DIAGNOSTIC IMPRESSION AND PLAN: Patient with acute respiratory failure which is multifactorial did have a component of pneumonia, likely aspiration etiology. The patient is currently covered with Zosyn to continue and monitor clinical course closely. at the bedside. Questions and concerns were answered. MMODL / IJN: [id number] /
[2020-02-16 00:04] LABS: Glucose,Whole Blood 80 mg/dL (75-99)
[2020-02-16] MEDS: VALPROATE SODIUM 250 MG in SODIUM CHLORIDE 0.9% 100 ML IVPB SCH ×4 (00:14→18:46)
[2020-02-16 04:56] LABS: Anisocytosis Slight; Basophils % (A) 0 %; Eosinophils # (A) 0.3 k/uL (0-0.7); Eosinophils % (A) 5 %; HCT 29.2 % (39.0-53.0); HGB 9.2 gm/dL (13.0-17.5); Hypochromasia Marked; Lymphocytes # (A) 0.8 k/uL (1.0-4.8); Lymphocytes % (A) 12 %; MCH 29.7 pg (25.0-35.0); MCHC 31.4 g/dL (31.0-37.0); MCV 94.7 fL (80.0-100.0); Mean Platelet Volume 9.8; Monocytes # (A) 0.5 k/uL (0-1.0); Monocytes % (A) 8 %; Neutrophils % (A) 73 %; RBC 3.08 m/uL (4.30-5.90); RDW 16.6 % (11.5-15.5); WBC 6.8 k/uL (3.8-10.6)
[2020-02-16 05:21] LABS: Calcium 7.8 mg/dL (8.4-10.2); Potassium 3.6 mmol/L (3.5-5.1)
[2020-02-16 06:01] LABS: Glucose,Whole Blood 86 mg/dL (75-99)
[2020-02-16 06:39] LABS: Platelet Count 94 k/uL (150-450)
[2020-02-16] MEDS: NOREPINEPHRINE 32 MG in SODIUM CHLORIDE 0.9% 218 ML IV SCH (06:45)
[2020-02-16] MEDS: INSULIN ASPART (NovoLOG) 100 UNIT/ML VIAL SQ SCH ×4 (06:49→18:23)
[2020-02-16] MEDS ORDERED: POTASSIUM CHLORIDE 20 MEQ in WATER FOR INJECTION 1 100ML.BAG IVPB SCH (07:00)
[2020-02-16] MEDS: IPRATROPIUM-ALBUTEROL 3 ML NEB INHALATION SCH ×4 (07:47→20:22)
[2020-02-16] MEDS: CARBIDOPA-LEVODOPA 10-100 MG 1 EACH TAB PO SCH ×2 (08:51→21:50)
[2020-02-16] MEDS: ISOSORBIDE MONONITRATE ER 15 MG TAB PO SCH (08:51)
[2020-02-16] MEDS: AMIODARONE 200 MG TAB PO SCH ×2 (08:51→20:03)
[2020-02-16] MEDS: CARVEDILOL 3.125 MG TAB PO SCH ×2 (08:51→20:03)
[2020-02-16] MEDS: SENNOSIDES 8.6 MG TAB PO SCH ×2 (08:52→20:04)
[2020-02-16] MEDS: PANTOPRAZOLE 40 MG/10 ML VIAL IVP SCH ×2 (08:58→20:04)
[2020-02-16] MEDS: PIPERACILLIN-TAZOBACTAM 3.375 GM in SODIUM CHLORIDE 0.9% 100 ML IVPB SCH ×2 (08:59→20:04)
--- NOTE | 2020-02-16 11:02 | P.PN ---
Subjective Progress Note Date: 02/16/20 (Critical care time 35 minutes) Principal diagnosis: Metabolic encephalopathy/altered mental status Status post cardiopulmonary arrest Intermittent runs of V. tach Aspiration pneumonia Acute hypoxic respiratory failure Acute on chronic renal failure Upper GI bleed/coffee-ground emesis Gastric distention Acute on chronic heart failure related to systolic heart failure Left foot with inflammation involving toes Bilateral pleural effusion Bilateral basal atelectasis COPD without exacerbation Severe leg uncontrolled diabetes with chronic complication with worsening Chronic atrial fibrillation Coagulopathy with elevated PT/INR, Coumadin is on hold Stage IV chronic renal failure 02/16/2020, patient seen and evaluated examined care plan discussed with the s kellyf at length patient is intermittently awake does follow simple commands at times, remains confused though, moving all 4 extremity on verbal command, patient is no code by family member, respiratory status stable on 2 L oxygen, patient has been getting daily dialysis and removal of one to one and half liters last dialysis was performed yesterday, family elected for extubation not to do any tracheostomy and PEG tube, patient cannot comprehend swallowing function, cannot swallow, all the by mouth medicine hour hold, labs are reviewed BUN/creatinine 21 and 3.16, platelet count is 94,000, patient remains on antibiotics, the hospice plans are pending also remains pending issue about dialysis will defer to renal service and the family, patient is not to be reintubated 02/15/2020, patient seen and evaluated examined during the rounds labs reviewed medications reviewed care plan discussed, care plan also discussed with the who was initially thinking about trach and PEG and after conversation with the rest of the family member elected not to proceed with that rather extubation, patient has been extubated successfully currently on 2 L oxygen he is minimally responsive spontaneously does open eyes sometimes tracks also, currently he is on 2 L oxygen saturating well, but he has a poor gag patient will be evaluated for his speech and swallow in the morning, family is thinking about possible hospice versus continuation of hemodialysis, today dialysis have been performed patient has a component of non-oliguric renal failure, dialysis dependent due to cardiorenal failure, remains on A. fib heart rate is well controlled,, most of the old medications cannot be given as patient cannot swallow 02/14/2020, patient seen eval examined during the rounds awake responding to simple physical stimuli, eyes open, patient did not tolerate the CPAP pressure support trial yesterday, very weak, patient is scheduled for getting hemodialysis today, yesterday successfully completed no pressors required today so far no presses required now, patient is off of lidocaine, off of vasopressors, ventilator setting is stable with assist control rate of 16 tidal volume of 500, 5 of PEEP, FiO2 is 40%, chest x-ray reviewed bilateral pleural effusion small amount along with interstitial edema seen, patient remains on the Zosyn we'll continue to do attempts of weaning in the meantime have a detailed discussion with the about trach and PEG and permanent dialysis catheter will proceed with it she still wants to discuss it with her other family members, consultation will be initiated awaiting their advice renal care time spent over 35 minutes 02/13/2020, patient seen and evaluated examined during rounds labs reviewed medications reviewed radiographic studies reviewed as well, patient remains on assist control with a rate of the 16 tidal volume of 500 PEEP is 5, oxygen is 40%, mental status appears slightly better as he is spontaneously open eyes and appears to following commands very weak, patient has a transient drop in blood pressure requiring levo fed again however it has been DC'd, patient had dialysis today and another 2.5 L of fluid has been removed, chest x-ray stable in terms of interstitial edema small pleural effusion as well as stable ET tube and NG tube, patient has been tolerating tube feed 20 mL an hour residuals are abnormal 100 mL stable, patient remains on paced rhythm, off of lidocaine, remains on amiodarone oral through the NG tube, patient remains on antibiotics, cultures so far has been negative, hemoglobin stable PT/INR is therapeutic. Blood gas well oxygenated and well ventilated will give him short CPAP pressure support trial with 5 of CPAP and 15 of pressure support of 15 minutes to half an hour 02/12/2020, patient seen eval examined during the rounds mental status remains compromised however patient does respond to deep sternal rub opens eyes spontaneously with that, EEG is showing almost normal wave pattern but with sedated features, hemodynamics remain stable patient remains off of levo fed drip and lidocaine drip no obvious arrhythmia has been seen, patient underwent hemodialysis 1.5 L of fluid has been removed, when setting remains stable on assist control of 16 breathing 20, tidal volume 600, PEEP is 5, oxygen is 40%, her peak airway pressure are 25-26, right-sided infiltrate and bilateral small pleural effusion are stable, tubes and hardware in the lungs are stable, patient has been on tube feed has been on 10 mL an hour will slightly go up on 20 mL an hour will go very slowly as patient is a high risk for high residuals, INR is up to 1.9 on Coumadin, BUN/creatinine continued to improve very slowly, 02/11/2020, patient seen eval examined during the rounds labs reviewed medications reviewed patient does open his eyes with sternal rub however does not follow commands, hemodynamically stable off of levo fed drip off of lidocaine as well, patient remains on oral amiodarone, full ventilator support is being given, vent settings are assist control rate of 16 tidal volume of 600, 5 of PEEP and FiO2 is 40%, respiratory rate is 20-22, peak airway pressure are 24-25, patient had a dialysis successfully performed in 2 L of fluid has been removed, chest x-ray shows bilateral pleural effusion as well as interstitial edema, no globin is 8.8, labs showed BUN/creatinine 58/4.78, white cell count is 8.4, INR slightly better 1.7, patient is being planned for another dialysis tomorrow 02/10/2020, patient seen eval examined during the rounds labs reviewed medications reviewed care plan discussed with the staff at length, mental status slightly appeared to be better as deep sternal rub and pressure patient didn't open his eyes which is a change compared to last 24-48 hours, otherwise patient remains somnolent and lethargic unresponsive, he is off of levo fed drip currently stable hemodynamics heart rate is 60, paced rhythm, he is still on the lidocaine drip, he had an dialysis earlier this morning tolerated very well 2 L of fluid has been removed, x-ray I reviewed his stable, when setting remains stable can assist control rate of 16 breathing about 20, PEEP is 5, tidal volume is 500, peak airway pressure about 20-24, patient remains on broad-spectrum antibiotics, renal functions are stable on dialysis, third spacing infiltrate however it's infiltrate, we'll continue to monitor clinical course patient might require a PEG tube as well as tracheostomy next week, will start tube feeding 10 mL an hour and follow clinical course closely labs reviewed chest x-ray reviewed, patient is resumed on Coumadin, INR today is 2 critical care time spent 35 minutes February 09, 2020, patient seen eval examined during the rounds labs reviewed medications reviewed care plan discussed with the staff at length patient remains poorly responsive , only Corneal Reflexion Very Weak Gag Reflex Patient Remains Intubated and Ventilator Setting Includes Assist Control with 16 Breathing about 20, Tidal Volume 600, HEENT of 5, Oxygen Is 40%, Peak Air Pressures Present, Chest X-Ray Reviewed Shows Right-Sided Pleural Effusion and Right-Sided Infiltrate Stable, Patient Is Due for a CAT Scan Patient Has Multiple EEG Shows Wide Complex Wave Pattern, Could Not Tolerate This Therapy for Now High Residuals, Patient Is Undergoing Hemodialysis Which Is Third Dialysis in the in the row, blood pressure remains labile, she remains on levo fed 7 mics with lidocaine drip, patient remains on the bradycardic, 02/08/2020, patient seen eval examined during the rounds labs reviewed medications reviewed care plan discussed, patient the appears to be developing some coagulopathy due to poor liver functions small dose of vitamin K given, hemodynamically patient's stable but continued to require vasopressors to have a adequate blood pressure currently patient had a dialysis second dialysis today, tolerated very well, however patient remains poorly responsive off of propofol and need For sedation for last 3 days, ventilator remains stable with assist control rate of 16 breathing about 20 to, tidal volume is 600 PEEP of 5, oxygen is 40% now, patient to feed is to be reinitiated, white cell count is 13,000 hemoglobin and hematocrit stable, arterial blood gas stable, x overall stable with the ET tube as well as the line, right basal atelectasis small right-sided pleural effusion not much change, he has some gag and corneal reflexes now, 2 L of fluid has been removed today during dialysis levo fed drip is down to 5 mics 02/07/2020, patient seen eval reexamined during the rounds labs reviewed medications reviewed radiographic studies reviewed as well patient continues to get worsening of pleural effusion requiring emergent dialysis, currently patient is undergoing dialysis 1 L of fluid removed, patient is on 0.1 of levo fed drip which is up from yesterday, patient is off of sedation with propofol for almost 2 days, mental status still compromised patient not breaking up with the sternal rub likely metabolic encephalopathy neurology is also following, when setting includes assist control rate of 16 breathing about 20, tidal volume 600, PEEP is is 5, oxygen is down to 40%, oxygen and oxygenation air entry is better situational 100% patient remains afebrile rest or secretions are minimal, Keofeed is on hold patient has been on Reglan to figure will be started later on once dialysis is over, cardiovascular point patient remains on lidocaine drip, he is on amiodarone oral/through the NG-tube, white cell count is up to 16,000, creatinine is up to 6.43 predialysis 02/06/2020, patient seen eval examined during the rounds labs reviewed medications reviewed care plan discussed with the staff at length, propofol has been discontinued since last night patient remains unresponsive, neurology service has been following computed tomography scan of the head has been ordered, EKG repeat is pending, pulmonary-quiñones have patient has been doing better remains afebrile no significant respiratory secretions are seen FiO2 is down to 40% remains on PEEP of 10 and tidal volume of 500 rate of 16 breathing about 20-24, we can safely bring down the PEEP to 5 now, chest x-ray reviewed bilateral interstitial Petrin is present but now patient appears to be developing bilateral pleural effusion, dialysis is not performed today patient remains on 16 mics of levo fed, remains on broad-spectrum antibiotics, no significant arrhythmias noted, renal function continued to go up, patient to feed is on hold due to high residuals will start Reglan and reattempt in next 24 hours 02/05/2020, patient seen eval reexamined during her medication was resumed and continue breathing over the ventilator, current setting include assist control rate of 16 breathing about 20-24, tidal volume is 500, PEEP is 10, FiO2 is down to 40% now, heart rhythm remains in flutter with paced rhythm bradycardic about 45-50, patient remained on lidocaine drip, the amiodarone has been changed to oral, for hemodynamic support patient remains on 18 mics of levo fed, however it's down from 30 mics from this morning, less cyanosis in hand and toes noted, cultures have been negative, patient is tolerating tube feed well, chest x-ray shows stability, patient remains on broad-spectrum antibiotics for the diabetic foot ulcer and as well as a right-sided aspiration pneumonia on cephapirin Vanco and Flagyl, patient could not tolerate dialysis today due to fluctuation in blood pressure and rhythm, will reattempt tomorrow patient is definitely not ready for weaning critical care time 35 minutes 02/04/2020, patient seen and evaluated examined during the round remains on full ventilator support currently on assist control 16, tidal Volume of 500, 10 of PEEP and 50% oxygen, ABGs are stable, chest x-ray revealed stable, continue show dense right-sided infiltrate, but overall is stable, patient is intermittently regarding runs of V. tach, extra dose of amiodarone has been given, cardiovascular services following, patient is on 20 mics of levo fed, Keofeed is stable, patient has discoloration of fingers and toes, due to vasoconstriction related to the vasopressors, A-line and central line has been working labs reviewed, overall given the irritable nature of myocardium long-term prognosis is poor patient remains a full code was discussed cord issue with the family as per request of hospital staff, patient overall appears to not tolerate the CPR or shock in the event need arise, critical care time 35 minutes 02/03/2020, patient seen and evaluated examined during the rounds sedated with propofol drip about 30 mics patient is on full vent support, hypoxia Significantly worse after V. fib cardiac arrest have been earlier this morning, patient has been intubated, chest x-ray reviewed, patient is on amiodarone drip, status post ACLS protocol, revived, patient underwent a hemodialysis catheter this morning, currently dialysis is undergoing plan is to remove a liter, patient is on levo fed drip, urgently needed central line and A-line because of poor peripheral IV axis and risk of externalization of vasopressors, still have coffee-ground material coming but severity appears to improve gastric secretions light and now patient is on Armaan Keofeed can be started, patient has third spacing and tissue edema with ecchymosis and bruising upper extremity, also has diabetic foot ulcer, patient remains on broad-spectrum antibiotic with Cefepime, we'll add vancomycin with pharmacy to dose, vent setting currently include assist control with PEEP of 10 FiO2 is 60% oxygen saturations were dropping into high 80s FiO2 increase to 70%, critical care time spent 35 minutes 02/02/2020, patient seen eval examined during the rounds labs reviewed medications reviewed, patient remains on dobutamine drip off of dopamine drip he is on Lasix 50 mg an hour, patient due to gastric distention was the having coffee-ground and Mrs. however hemoglobin remained stable white cell count went up to 15,000, patient INR isn't therapeutic range now,, patient has been on proton pump inhibitor, a computed tomography scan of the abdominal and pelvis has been performed which has been reviewed no gastric outlet obstruction has been noted but stomach may be slightly distended due to air, arterial blood gas have been reviewed adequate ventilation and oxygenation is present x-ray however suggestive of the fluid overload with bilateral pleural effusion not much change, renal functions remains on the higher level, patient likely will need hemodialysis with volume removal, care plan discussed with the staff further recommendations pending plan of care as per clinical response of the patient 02/01/2020, patient seen eval examined during the rounds, he remains afebrile, hemodynamic status stable however the blood pressure continue be on the low side oxygen saturation is 98% on 2 L, patient remains on breathing treatments and broad-spectrum antibiotics, do vitamin have been on hold due to tachycardia however remains on Lasix drip, Coumadin remains on hold recommend to check on a daily basis and resume Coumadin once is okay from cardiovascular services 01/31/2020, patient seen eval examined during the rounds has history of oxygen breathing status stable, saturation is 90-93%, patient has been on dobutamine and dopamine and Lasix strip, INR is coming down, BUN/creatinine slightly up This is a 79-year-old male who was seen evaluated examined on third floor, patient came into the hospital with progressive shortness of breath associated with last 1-2 weeks with increased swelling progressively from the 4 extremities to mid abdominal level in addition patient appears to be having diabetic foot infection with edema and redness in the toes as well in the left foot, patient is arousable but tired on 3 L oxygen, patient is to be started on Lasix drip along with dobutamine drip, patient has a history of COPD chronic systolic heart failure chronic atrial fibrillation diabetes along with chronic renal failure stage IV, currently patient is on WelChol dilators in the form of DuoNeb, ID service has been requested for antibiotics, his chest x-ray consistent with congestive heart failure fluid overload and pulmonary edema in addition to his interstitial edema and small bilateral pleural effusion Objective - Vital Signs Vital signs: Vital Signs Temp 98.1 F 02/16/20 08:00 Pulse 86 02/16/20 10:00 Resp 22 02/16/20 10:00 BP 125/47 02/16/20 10:00 Pulse Ox 93 L 02/16/20 10:00 Intake & Output 02/15/20 02/16/20 02/16/20 18:59 06:59 18:59 Intake Total 463 420 269 Output Total 1230 165 33 Balance -767 255 236 Weight 97.3 kg 98.3 kg Intake: IV 443 420 169 Artline flush 3 9 Piperacillin-Tazobactam 3 200 .375 gm In Sodium Chloride 0.9% 100 ml @ 25 mls/hr IVPB Q12HR [facility] Rx #:[id number] Sodium Chloride 0.9% 1, 240 220 60 000 ml @ 20 mls/hr IV . Q24H [facility] Rx#:[id number] Valproate Sodium 250 mg 200 100 In Sodium Chloride 0.9% 100 ml @ 100 mls/hr IVPB Q6HR [facility] Rx#:[id number] Intake, IV Titration 100 Amount Potassium Chloride 20 meq 100 In Water For Injection 1 100ml.bag @ 50 mls/hr IVPB Q2H [facility] Rx#: [id number] Tube Feeding 20 Output: Urine 30 165 33 Hemodialysis 1200 Other: Voiding Method Indwelling Catheter Indwelling Catheter Indwelling Catheter ABP, PAP, CO, CI - Last Documented Arterial Blood Pressure 144/43 - Exam Remain Extubated as per wishes of the family on 2 L oxygen intermittently open his eyes but remains somnolent and lethargic, however at times follow simple commands - Constitutional General appearance: disheveled, mild distress, morbidly obese, unresponsive to deep sternal rub - Neck Neck: Supple Carotids: bilateral: upstroke normal - Respiratory Respiratory: bilateral: diminished, dullness, rales bronchial breath sounds especially on the right side - Cardiovascular Rhythm: regular Heart sounds: normal: S1, S2 - Gastrointestinal General gastrointestinal: normal bowel sounds, soft - Musculoskeletal Musculoskeletal: generalized weakness, strength equal bilaterally - Psychiatric Psychiatric: Intermittent follow commands very weak with poor gag Edema involving the lower extremity up to the abdominal level, in addition left diabetic foot involvement of the toes - Labs CBC & Chem 7: 02/16/20 04:30 02/16/20 04:30 Labs: Abnormal Lab Results - Last 24 Hours (Table) 02/15/20 02/16/20 02/16/20 Range/Units 12:12 04:30 04:30 RBC 3.08 L (4.30-5.90) m/uL Hgb 9.2 L (13.0-17.5) gm/dL Hct 29.2 L (39.0-53.0) % RDW 16.6 H (11.5-15.5) % Plt Count 94 L (150-450) k/uL Lymphocytes # 0.8 L (1.0-4.8) k/uL Sodium 134 L (137-145) mmol/L BUN 21 H (9-20) mg/dL Creatinine 3.16 H (0.66-1.25) mg/dL POC Glucose (mg/dL) 104 H (75-99) mg/dL Calcium 7.8 L (8.4-10.2) mg/dL Assessment and Plan Assessment: Altered mental status encephalopathy likely related component of anoxic injury t o brain patient is extubated and is spontaneously opening his eyes and appears to be following simple commands Ischemic cardiomyopathy with ejection fraction of 20% to 25% with group 2 pulmonary hypertension of moderate to severe category Dialysis dependent renal failure Aspiration pneumonia, with a high risk of recurrent aspiration Status post V. fib cardiac arrest Status post cardiopulmonary arrest Intermittent runs of V. tach rhythm appears to be more organized now on oral amiodarone Acute on chronic renal failure mostly appears to be cardiorenal, now on dialysis continuously daily basis Upper GI coffee-ground emesis likely due to stress ulceration patient has been on Protonix, stable Acute on chronic hypoxic respiratory failure Acute on chronic heart failure related to systolic heart failure Left foot with inflammation involving toes Bilateral pleural effusion Bilateral basal atelectasis COPD without exacerbation Severe leg uncontrolled diabetes with chronic complication with worsening Chronic atrial fibrillation Coagulopathy with elevated PT/INR, Coumadin is on hold Stage IV chronic renal failure baseline Plan: Plans to closely monitor this patient on this with a spontaneous breathing and nasal cannula family has refused trach and PEG elected for extubation, awaiting their advice for further plan of care patient about hemodialysis, cannot take any of the by mouth medicines so is being Nothing by mouth remains at a high risk of aspiration related complications due to his mental status and poor gag Hemodialysis as per choice of family and renal services, currently undergoing daily hemodialysis until further advice and recommendations from the family, patient is currently no code neurology is following, Observe patient off of the levo fed as well as lidocaine drip Continue to monitor patient closely in ICU, depending upon further advised the family patient can be moved out Replace electrolytes Continue broad-spectrum antibiotics with Zosyn Continue bronchodilators Labs have been ordered for tomorrow Monitor renal functions and electrolytes closely We will hold Coumadin for now as patient cannot swallow Further recommendations pending plan of care as per clinical response of patient, long-term prognosis poor, patient is DO NOT RESUSCITATE CODE STATUS per family request, awaiting family's advice Time with Patient: Greater than 30
[2020-02-16 11:45] LABS: Glucose,Whole Blood 81 mg/dL (75-99)
--- NOTE | 2020-02-16 11:48 | P.PN ---
Subjective Patient is seen in follow-up for end-stage renal disease. He was started on hemodialysis this admission. Extubated. Failed swallow eval this morning. Has been undergoing daily dialysis this past week mostly for ultrafiltration. No changes overnight. Vital signs are stable. Off vasopressors. General: The patient appeared well nourished and normally developed. HEENT: Head exam is unremarkable. LUNGS: Breath sounds decreased. HEART: Rate and Rhythm are regular. ABDOMEN: Soft, nontender. EXTREMITITES: Trace edema. Objective - Vital Signs Vital signs: Vital Signs Temp 98.1 F 02/16/20 08:00 Pulse 87 02/16/20 11:28 Resp 24 02/16/20 11:38 BP 100/54 02/16/20 11:00 Pulse Ox 93 L 02/16/20 11:00 Intake & Output 02/15/20 02/16/20 02/16/20 18:59 06:59 18:59 Intake Total 463 420 289 Output Total 1230 165 37 Balance -767 255 252 Weight 97.3 kg 98.3 kg Intake: IV 443 420 189 Artline flush 3 9 Piperacillin-Tazobactam 3 200 .375 gm In Sodium Chloride 0.9% 100 ml @ 25 mls/hr IVPB Q12HR ENRIQUE Rx #:[id number] Sodium Chloride 0.9% 1, 240 220 80 000 ml @ 20 mls/hr IV . Q24H ENRIQUE Rx#:[id number] Valproate Sodium 250 mg 200 100 In Sodium Chloride 0.9% 100 ml @ 100 mls/hr IVPB Q6HR ENRIQUE Rx#:[id number] Intake, IV Titration 100 Amount Potassium Chloride 20 meq 100 In Water For Injection 1 100ml.bag @ 50 mls/hr IVPB Q2H ENRIQUE Rx#: [id number] Tube Feeding 20 Output: Urine 30 165 37 Hemodialysis 1200 Other: Voiding Method Indwelling Catheter Indwelling Catheter Indwelling Catheter ABP, PAP, CO, CI - Last Documented Arterial Blood Pressure 132/38 - Labs CBC & Chem 7: 02/16/20 04:30 02/16/20 04:30 Labs: Abnormal Lab Results - Last 24 Hours (Table) 02/15/20 02/16/20 02/16/20 Range/Units 12:12 04:30 04:30 RBC 3.08 L (4.30-5.90) m/uL Hgb 9.2 L (13.0-17.5) gm/dL Hct 29.2 L (39.0-53.0) % RDW 16.6 H (11.5-15.5) % Plt Count 94 L (150-450) k/uL Lymphocytes # 0.8 L (1.0-4.8) k/uL Sodium 134 L (137-145) mmol/L BUN 21 H (9-20) mg/dL Creatinine 3.16 H (0.66-1.25) mg/dL POC Glucose (mg/dL) 104 H (75-99) mg/dL Calcium 7.8 L (8.4-10.2) mg/dL Assessment and Plan Plan: Assessment: 1. End-stage renal disease secondary to cardiorenal syndrome and diabetic kidney disease started on hemodialysis this admission. 2. Status post cardiac arrest, now off lidocaine drip. On amiodarone. 3. Acute on chronic systolic CHF with ejection fraction of 25-30% with moderate aortic stenosis, moderate to severe mitral regurgitation, severe tricuspid regurgitation and severe pulmonary hypertension. 4. Volume overload. Improved with diuresis. 5. Insulin-dependent diabetes mellitus. 6. Chronic kidney disease mineral bone disease maintained on calcitriol. 7. Anemia of chronic kidney disease maintained on Aranesp. 8. Aspiration pneumonia maintain on antibiotics. Sputum culture positive for Corynebacterium. Plan: Last hemodialysis February 14 with 1200 mL ultrafiltration. Hold dialysis today. Initially the family wanted to proceed with comfort measures but now want dialysis continued for the time being. He failed speech eval this morning. Per the nurse, is requesting and G- tube placement. I have also requested that dialysis catheter be exchanged to prevent infection. Lasix 80 mg IV once today.
[2020-02-16] MEDS: CHLORHEXIDINE GLUCONATE 15 ML CUP MUCOUS MEM SCH (11:52)
[2020-02-16] MEDS: SODIUM CHLORIDE 0.9% 1,000 ML IV SCH (11:52)
[2020-02-16 12:43] VITALS: BMI 32.0
--- NOTE | 2020-02-16 14:44 | PN ---
PROGRESS NOTE DATE OF SERVICE: 02/16/2020 REASON FOR FOLLOWUP: Aspiration pneumonia. INTERVAL HISTORY: The patient is currently afebrile. The patient is hemodynamically stable. Remains to be lethargic, breathing comfortably on nasal cannula oxygen. No vomiting or diarrhea has been reported by nursing staff. Patient was not able provide any history. PHYSICAL EXAMINATION: Blood pressure is 128/59 with a pulse of 65, temperature 98, he is 93% on 2 L nasal cannula. General description is an elderly male, lying in bed in no distress. RESPIRATORY SYSTEM: Unlabored breathing, clear to auscultation anteriorly. HEART: S1, S2. Regular rate and rhythm. ABDOMEN: Soft, no tenderness. LABS: Hemoglobin 9.1, white count 6.8, BUN of 21, creatinine 3.16. DIAGNOSTIC IMPRESSION AND PLAN: Patient with aspiration pneumonia. This patient has been extubated; however, . Patient to continue with Zosyn and monitor clinical course closely. Continue supportive care. MMODL / IJN: [id number] /
[2020-02-16] MEDS ORDERED: FUROSEMIDE 10 MG/ML 10 ML VIAL IV STA (14:57)
--- NOTE | 2020-02-16 15:05 | XR ---
EXAMINATION TYPE: XR chest 1V portable DATE OF EXAM: 02/16/2020 Comparison: 02/14/2020 Clinical History: 79-year-old male with CHF Findings: Left anterior chest wall generator with right atrial and right ventricular leads. Right IJ CVC tip within the right atrium. Heart remains mildly enlarged. Diffuse interstitial and per ihilar opacities with mid and lower lung opacities and pleural effusions, similar to prior exam. Impression: Overall stable exam. Continued CHF with interstitial pulmonary edema. Small effusions with more confl uent edema in the mid and lower lungs.
--- NOTE | 2020-02-16 16:05 | PN ---
PROGRESS NOTE I am covering for Dr. Bynum. DATE OF SERVICE: 02/16/2020 This 79-year-old gentleman who was admitted with CHF, acute exacerbation, also had acute metabolic encephalopathy. The patient also had acute anoxic brain injury initially, but subsequently the patient improved and the patient was extubated. Patient currently continues to be confused. The hemodialysis also has been continued through a temporary dialysis catheter. Multiple consultants are following the patient closely. Past medical history reviewed. REVIEW OF SYSTEMS: CARDIOVASCULAR SYSTEM: No angina, palpitations. RESPIRATORY SYSTEM: As mentioned earlier. GI: As mentioned earlier. : No dysuria or retention. NERVOUS SYSTEM: No numbness, weakness. CURRENT MEDICATIONS: Reviewed. They include: 1. DuoNeb q.i.d. and p.r.n. 2. Cordarone 200 mg p.o. b.i.d. 3. Isoptin. 4. Rocaltrol. 5. Sinemet 10/100 one p.o. b.i.d. 6. Coreg 3.125 b.i.d. 7. Aranesp. 8. Imdur. 9. Singulair. 10.Narcan. 11.Levophed. 12.Protonix. 13.Zosyn. 14.Senokot. 15.Flomax. 16.Valproic acid. PHYSICAL EXAMINATION: Patient is conscious, confused. Pulse 85, blood pressure 118/49, respiration 24, temperature 98 degrees, pulse ox 96% on 2 L. HEENT: Conjunctivae normal. NECK: No jugular venous distention. CARDIOVASCULAR SYSTEM: S1, S2 muffled. RESPIRATORY SYSTEM: Breath sounds diminished at the bases. Bilateral scattered rhonchi and crackles. ABDOMEN: Soft, non-tender. LEGS: No edema. No swelling. NERVOUS SYSTEM: No focal deficit. LABS: WBC 6.8, hemoglobin 9.6, sodium 134, creatinine 3.16. ASSESSMENT: 1. Congestive heart failure, acute exacerbation, with acute on chronic systolic dysfunction with acute hypoxic respiratory failure, status post mechanical ventilation. 2. Metabolic encephalopathy, acute, multifactorial. 3. Acute cardiorespiratory arrest secondary to ventricular fibrillation. 4. Bradycardia. 5. Change in mental status, metabolic encephalopathy, multifactorial. 6. Diffuse cerebral dysfunction on the EEG, improving. 7. Acute renal failure, newly started hemodialysis, acute tubular necrosis. 8. Sepsis, septic shock, multifactorial. 9. Bilateral pneumonia, right more than left, possibly aspiration with acute hypoxic respiratory failure with sepsis, present on admission. 10.Congestive heart failure, acute exacerbation, with acute on chronic systolic dysfunction, ejection fraction 20% to 25%. 11.Bilateral pleural effusions. 12.Bibasilar atelectasis. 13.History of gastrointestinal bleed. 14.History of hypercoagulopathy. 15.History of nonsustained ventricular tachycardia. 16.History of chronic atrial fibrillation. 17.Moderate aortic stenosis and severe mitral regurgitation. 18.History of tricuspid regurgitation. 19.Acute on chronic renal failure, stage IV. 20.Diabetes mellitus, type 2. 21.Hypertension. 22.Hyperlipidemia. 23.Acute on chronic lower extremity cellulitis. 24.Chronic obstructive pulmonary disease. 25.Anemia, normocytic anemia of chronic disease. 26.Thrombocytopenia. 27.NO CODE, NO CPR, NO VENT. RECOMMENDATIONS AND DISCUSSION: At this time I recommend to continue current medications, continue with the monitoring, symptomatic treatment. Will monitor the patient closely. Monitor the fluid/electrolyte balance closely. Recommend PN with fluid limit up to 70 mL/hour and monitor closely. Dialysis per Nephrology. Discussed with the patient's yesterday at length. Currently the patient is NO CODE. Closely follow with multiple consultants. I would also recommend a chest x-ray today for continued evaluation. MMODL / IJN: [id number] / MTDD
[2020-02-16] MEDS: ALLOPURINOL 100 MG TAB PO SCH ×2 (16:41→20:03)
[2020-02-16 17:39] LABS: Glucose,Whole Blood 89 mg/dL (75-99)
[2020-02-16] MEDS: TAMSULOSIN 0.4 MG CAP.ER.24H PO SCH (20:04)
[2020-02-16] MEDS: MONTELUKAST 10 MG TAB PO SCH (20:04)
[2020-02-17] MEDS: VALPROATE SODIUM 250 MG in SODIUM CHLORIDE 0.9% 100 ML IVPB SCH ×4 (00:30→18:51)
[2020-02-17] MEDS: INSULIN ASPART (NovoLOG) 100 UNIT/ML VIAL SQ SCH ×4 (00:33→19:04)
[2020-02-17 00:38] LABS: Glucose,Whole Blood 93 mg/dL (75-99)
[2020-02-17 00:42] LABS: Anisocytosis Slight; Basophils % (A) 0 %; Eosinophils # (A) 0.3 k/uL (0-0.7); Eosinophils % (A) 5 %; HCT 28.6 % (39.0-53.0); HGB 8.6 gm/dL (13.0-17.5); Hypochromasia Marked; Lymphocytes # (A) 0.5 k/uL (1.0-4.8); Lymphocytes % (A) 7 %; MCH 28.6 pg (25.0-35.0); MCV 95.4 fL (80.0-100.0); Mean Platelet Volume 9.1; Monocytes # (A) 0.5 k/uL (0-1.0); Monocytes % (A) 7 %; Neutrophils # (A) 5.7 k/uL (1.3-7.7); Neutrophils % (A) 79 %; RDW 16.7 % (11.5-15.5); WBC 7.2 k/uL (3.8-10.6)
[2020-02-17 00:46] LABS: Platelet Count 99 k/uL (150-450)
[2020-02-17 01:06] LABS: Potassium 3.9 mmol/L (3.5-5.1)
[2020-02-17 05:57] LABS: Glucose,Whole Blood 92 mg/dL (75-99)
[2020-02-17] MEDS: IPRATROPIUM-ALBUTEROL 3 ML NEB INHALATION SCH ×4 (07:30→20:07)
[2020-02-17] MEDS: ALLOPURINOL 100 MG TAB PO SCH ×2 (08:15→23:54)
[2020-02-17] MEDS: CARVEDILOL 3.125 MG TAB PO SCH ×2 (08:15→23:54)
[2020-02-17] MEDS: AMIODARONE 200 MG TAB PO SCH ×2 (08:15→23:53)
[2020-02-17] MEDS: PANTOPRAZOLE 40 MG/10 ML VIAL IVP SCH ×2 (08:15→23:52)
[2020-02-17] MEDS: ISOSORBIDE MONONITRATE ER 15 MG TAB PO SCH (08:15)
[2020-02-17] MEDS: PIPERACILLIN-TAZOBACTAM 3.375 GM in SODIUM CHLORIDE 0.9% 100 ML IVPB SCH ×2 (08:15→23:52)
[2020-02-17] MEDS: SENNOSIDES 8.6 MG TAB PO SCH ×2 (08:16→23:53)
[2020-02-17] MEDS: CARBIDOPA-LEVODOPA 10-100 MG 1 EACH TAB PO SCH (08:16)
--- NOTE | 2020-02-17 09:52 | PN ---
PROGRESS NOTE CHF acute exacerbation, metabolic encephalopathy with questionable anoxic brain injury. The patient then was extubated. He still has some confusion. He has a temporary dialysis catheter. Fourteen point review of systems negative except for mentioned in HPI. CURRENT MEDS: 1. DuoNeb q.i.d. 2. Cordarone 200 b.i.d. 3. Isoptin. 4. Sinemet. 5. Coreg. 6. Aranesp. 7. Imdur. 8. Singulair. 9. Narcan. 10.Levophed. 11.Protonix. 12.Zosyn. 13.Flomax. 14.Valproic acid. Confused. Vital signs are reviewed. HEENT pupils equal, round, reactive. Heart S1, S2. Lungs are diminished at the bases. Scattered rhonchi and wheeze. Abdomen is soft, nontender. Extremities: Minimal edema. White count 6.8, hemoglobin 9.6, creatinine 3.16, sodium 134. ASSESSMENT: 1. Congestive heart failure acute exacerbation, acute on chronic systolic dysfunction. 2. Acute hypoxic respiratory failure, status post mechanical vent. 3. Encephalopathy. 4. Cardiovascular arrest secondary to ventricular fibrillation. 5. Bradycardia. 6. Cerebral dysfunction. 7. Acute renal failure. 8. Acute tubular necrosis. 9. Septic shock. 10.Bilateral pneumonia, aspiration nature. 11.Congestive heart failure, acute on chronic, systolic. 12.Bilateral pleural effusions. 13.History of gastrointestinal bleed. 14.History of nonsustained ventricular tachycardia. 15.Chronic atrial fibrillation. 16.Severe mitral regurg and tricuspid regurg. 17.Chronic renal failure stage 4. 18.Diabetes type 2. 19.Hypertension. 20.Dyslipidemia. 21.Chronic obstructive pulmonary disease. 22.Anemia, normocytic anemia of chronic disease. 23.Thrombocytopenia. He is given peripheral nutrition, dialysis. He is NO CODE, NO CPR, NO VENT. Symptomatic treatment. Prognosis guarded. ICU time 30 minutes. MMODL / IJN: [id number] /
[2020-02-17 12:20] LABS: Glucose,Whole Blood 101 mg/dL (75-99)
--- NOTE | 2020-02-17 12:58 | PN ---
PROGRESS NOTE Patient is seen for followup for end-stage renal disease. He is currently seen on dialysis. Patient is tolerating his treatment fairly well. Blood pressure is about 120 systolic, heart rate 72 per minute, he is afebrile. He is maintained on nasal cannula. Patient is maintained on tube feedings as well through the NG tube. He is not waking up much. Coughing episodes were noted. Currently we are using the right femoral catheter. On examination today, blood pressure 128/52, heart rate 72 per minute, patient is afebrile. Examination of the heart S1, S2. Examination of the lungs, decreased breath sounds at bases. Abdomen is soft, nontender. Examination of lower extremities shows edema 1+ bilaterally. [employer] PRODUCTION SUPERVISOR exam cannot be assessed. LAB: Show sodium 137, potassium 3.9, BUN 25, creatinine 3.9, hemoglobin 8.6 g/dL. ASSESSMENT: 1. End-stage renal disease, currently maintained on hemodialysis on a Wednesday, , Wednesday schedule. Awaiting final decision from family regarding possible hospice care/comfort care measures down the road if the patient does not wake up. 2. Status post hypoxic respiratory failure status post extubation. 3. Status post cardiac arrest. 4. Anemia of chronic disease, maintained on Aranesp. 5. Aspiration pneumonia, maintained on antibiotics. Sputum culture positive for Corynebacterium. 6. Volume overload, currently improved. 7. Cardiomyopathy, ejection fraction 25-30%. 8. Moderate aortic stenosis, moderate to severe mitral regurg and severe pulmonary hypertension. PLAN: Hemodialysis today, goal UF about 800 mL as tolerated. Avoid hypotension. Awaiting final decision from family regarding plan of care and code status. MMODL / IJN: [id number] /
[2020-02-17 18:26] LABS: Glucose,Whole Blood 110 mg/dL (75-99)
--- NOTE | 2020-02-17 18:40 | PN ---
PROGRESS NOTE DATE OF SERVICE: 02/17/2020 REASON FOR FOLLOWUP: Aspiration pneumonia. INTERVAL HISTORY: The patient is currently afebrile. The patient has been moved down to the ICU. He did have the NG tube for feeding. He has been tolerating. He did have some diarrhea for which a fecal management system was put in, though no worsening stool. has been recorded by the nursing staff. The patient remains to be lethargic and unable to provide any history and no other change reported. PHYSICAL EXAMINATION: Blood pressure 131/57, pulse of 82, temperature of 98. He is 97% on 2 L nasal cannula. General description is an elderly male lying in bed in no distress. Respiratory system: Unlabored breathing, clear to auscultation anteriorly. Heart S1, S2. Regular rate and rhythm. ABDOMEN: Soft, no tenderness. LABS: Hemoglobin 8.8, white count 7.2, BUN of 25, creatinine 3.94. DIAGNOSTIC IMPRESSION AND PLAN: Patient with acute respiratory failure which is likely multifactorial. Sputum likely component of aspiration pneumonia. Sputum has been negative for resistant pathogen. Patient is currently on Zosyn to continue and monitor clinical course closely. MMODL / IJN: [id number] /
[2020-02-17] MEDS: SODIUM CHLORIDE 0.9% 1,000 ML IV SCH (19:05)
[2020-02-17] MEDS: TAMSULOSIN 0.4 MG CAP.ER.24H PO SCH (23:53)
[2020-02-17] MEDS: MONTELUKAST 10 MG TAB PO SCH (23:59)
[2020-02-18 00:04] LABS: Glucose,Whole Blood 128 mg/dL (75-99)
[2020-02-18] MEDS: VALPROATE SODIUM 250 MG in SODIUM CHLORIDE 0.9% 100 ML IVPB SCH ×4 (00:15→19:24)
[2020-02-18] MEDS: INSULIN ASPART (NovoLOG) 100 UNIT/ML VIAL SQ SCH ×4 (05:38→19:22)
[2020-02-18] MEDS: CARBIDOPA-LEVODOPA 10-100 MG 1 EACH TAB PO SCH ×2 (05:41→09:40)
[2020-02-18 06:20] LABS: Glucose,Whole Blood 116 mg/dL (75-99)
--- NOTE | 2020-02-18 06:45 | XR ---
EXAM: XR Chest, 1 View CLINICAL HISTORY: ITS.REASON XR Reason: NG placement TECHNIQUE: Frontal view of the chest. COMPARISON: 02/13/2020 IMPRESSION: NG tube enters the proximal stomach, but the tip curled back up into the distal esophagus. Recommend advancing 5 cm.
[2020-02-18] MEDS: IPRATROPIUM-ALBUTEROL 3 ML NEB INHALATION SCH ×5 (07:41→19:13)
--- NOTE | 2020-02-18 08:12 | XR ---
EXAMINATION TYPE: XR chest 1V portable DATE OF EXAM: 02/18/2020 COMPARISON: 02/18/2020 HISTORY: Advancement of the nasogastric tube placement TECHNIQUE: Single frontal view of the chest is obtained. FINDINGS: Enteric tube courses beyond the gastroesophageal junction appears appropriately placed. Du al lead left-sided cardiac device overlies the left hemithorax. Cardiomediastinal silhouette is stabl e. Bilateral layering pleural effusions, small the right and trace on the left are similar with assoc iated bibasilar airspace disease. No acute osseous process seen. Patient's chin obscures the lung api carlota. IMPRESSION: Advancement of the enteric tube, appropriately placed. Stable pleural effusions and asso ciated bibasilar airspace disease, likely compressive atelectasis.
[2020-02-18] MEDS ORDERED: LORazepam 2 MG/ML INJ IV PRN (09:11)
[2020-02-18] MEDS: SCOPOLAMINE 1.5MG/72HR PATCH TRANSDERM SCH (09:16)
[2020-02-18] MEDS: PIPERACILLIN-TAZOBACTAM 3.375 GM in SODIUM CHLORIDE 0.9% 100 ML IVPB SCH (09:17)
[2020-02-18] MEDS: PANTOPRAZOLE 40 MG/10 ML VIAL IVP SCH (09:17)
[2020-02-18 09:29] LABS: Anisocytosis Slight; Basophils % (A) 0 %; Eosinophils # (A) 0.3 k/uL (0-0.7); Eosinophils % (A) 4 %; HCT 29.7 % (39.0-53.0); HGB 8.8 gm/dL (13.0-17.5); Hypochromasia Marked; Lymphocytes # (A) 0.7 k/uL (1.0-4.8); Lymphocytes % (A) 10 %; MCH 28.4 pg (25.0-35.0); MCHC 29.7 g/dL (31.0-37.0); MCV 95.7 fL (80.0-100.0); Mean Platelet Volume 8.9; Monocytes # (A) 0.5 k/uL (0-1.0); Monocytes % (A) 7 %; Neutrophils # (A) 5.3 k/uL (1.3-7.7); Neutrophils % (A) 76 %; Platelet Count 108 k/uL (150-450); RDW 16.8 % (11.5-15.5); WBC 6.9 k/uL (3.8-10.6)
[2020-02-18] MEDS: ALLOPURINOL 100 MG TAB PO SCH (09:40)
[2020-02-18] MEDS: SENNOSIDES 8.6 MG TAB PO SCH (09:40)
[2020-02-18 09:42] LABS: Albumin 2.5 g/dL (3.5-5.0); Calcium 7.9 mg/dL (8.4-10.2); Potassium 3.9 mmol/L (3.5-5.1); Total Bilirubin 0.5 mg/dL (0.2-1.3); Total Protein 5.5 g/dL (6.3-8.2)
[2020-02-18 11:51] LABS: Glucose,Whole Blood 141 mg/dL (75-99)
--- NOTE | 2020-02-18 12:02 | PN ---
PROGRESS NOTE Patient is seen for followup for end-stage renal disease. We dialyzed him yesterday, however, we were not able to take much fluid off. Patient had about 700 mL of fluid removed. This morning he is more short of breath. He appears to be a little bit more awake, but he is significantly more short of breath. Patient does not have much urine output. PHYSICAL EXAMINATION: On examination today, blood pressure was 90/38, heart rate 88 per minute, he is afebrile. Examination of the heart S1, S2. Examination on the lungs: Decreased breath sounds at bases. Bilateral wheezing is heard. Abdomen is soft, nontender. Examination of lower extremities shows edema 2+ bilaterally. ELECTRONICS ENGINEERING TECHNOLOGIST exam cannot be performed. Patient appears to be much more awake than yesterday. LAB: Show sodium 137, potassium 3.9, BUN 26, creatinine 4.14, hemoglobin 8.8 g/dL. ASSESSMENT: 1. End-stage renal disease recently started on dialysis this admission. 2. Volume overload congestive heart failure, status post UF about 700 mL yesterday. We will plan for dialysis again tomorrow if the patient is hemodynamically stable. However, given his overall general condition and low blood pressure it is difficult to dialyze the patient and we need to consider hospice care. 3. Generalized debility. 4. Acute hypoxic respiratory failure, currently extubated. 5. Status post cardiac arrest. 6. Aspiration, currently maintained on tube feedings. 7. Anemia, multifactorial. 8. Cardiomyopathy, ejection fraction 25-30%. 9. Moderate aortic stenosis with moderate to severe mitral regurg and severe pulmonary hypertension. PLAN: Repeat hemodialysis in a.m. if patient is hemodynamically stable. I will give him a dose of IV Lasix today. Consider BiPAP, however, patient has an NG tube in so he will not be able to tolerate the BiPAP. Overall prognosis is guarded. Recommend hospice care as patient does not tolerate dialysis given his low blood pressures. MMODL / IJN: [id number] /
[2020-02-18] MEDS ORDERED: FUROSEMIDE 10 MG/ML 10 ML VIAL IV STA (12:36)
[2020-02-18] MEDS: AMIODARONE 200 MG TAB PO SCH (12:59)
[2020-02-18] MEDS: ISOSORBIDE MONONITRATE ER 15 MG TAB PO SCH (12:59)
[2020-02-18] MEDS: CARVEDILOL 3.125 MG TAB PO SCH (12:59)
[2020-02-18] MEDS: MORPHINE SULFATE 2 MG/ML SYRINGE IV PRN ×3 (14:58→20:36)
--- NOTE | 2020-02-18 15:47 | PN ---
PROGRESS NOTE DATE OF SERVICE: 02/18/2020 REASON FOR FOLLOWUP: Aspiration pneumonia. INTERVAL HISTORY: The patient is currently afebrile. The patient does have borderline blood pressure. Seemed to have slightly tachypnea. Now sating 94% on 2 L. No fever has been recorded. Still has the NG in. No vomiting or any diarrhea reported by nursing staff. EXAMINATION: Blood pressure is 88/30 with a pulse of 53, temperature 99.1. He is 94% on 2 L nasal cannula. General description is an elderly male lying in bed in no distress. Mild tachypnea but no accessory muscles of respiration use. LABS: Hemoglobin 8.1, white count of 6.9, BUN of 26, creatinine 4.14. DIAGNOSTIC IMPRESSION AND PLAN: Patient with acute respiratory failure which is multifactorial. This patient did have a component of pneumonia with worsening of his kidney function and overall poor prognosis. is considering comfort care which would be appropriate for him. She was at the bedside. She was confirmed switched to comfort. Questions and concerns answered. MMODL / IJN: [id number] /
[2020-02-18 15:57] VITALS: BP 89/48; RESP 32; TEMP 98.3
[2020-02-18] MEDS: SODIUM CHLORIDE 0.9% 1,000 ML IV SCH (18:25)
[2020-02-18 18:32] LABS: Glucose,Whole Blood 127 mg/dL (75-99)
[2020-02-18 20:48] LABS: Glucose,Whole Blood 129 mg/dL (75-99)
[2020-02-18] MEDS ORDERED: ARTIFICIAL TEARS-HYPROMELLOSE DROPS 15 ML BTL BOTH EYES PRN (20:51)
[2020-02-18] MEDS ORDERED: MORPHINE SULFATE (100 MG/2 ML) 100 MG in SODIUM CHLORIDE 0.9% 100 ML IV SCH (21:00)
--- NOTE | 2020-02-19 00:49 | PN ---
PROGRESS NOTE This 79-year-old white male who has been made comfort care today after he is having difficulty with fluid overload, hypotension with allergy to [place]. Discussed the case with the who want the patient comfort care. He has worsening breathing. He has been placed on morphine drip. Recontacted with the , wants on a morphine drip and Ativan drip at this time for comfort care. Prognosis is very poor. Comfort measures at this point in the ICU. Discussed the case with the a couple times and nurse couple times on the phone. ICU TIME: 60 minutes. Poor prognosis with severely guarded prognosis. MMODL / IJN: [id number] /
[2020-02-19 04:40] VITALS: PULSE 88
[2020-02-19] MEDS: NOREPINEPHRINE 32 MG in SODIUM CHLORIDE 0.9% 218 ML IV SCH (08:00)
[2020-02-19] MEDS: CARVEDILOL 3.125 MG TAB PO SCH (08:02)
[2020-02-19] MEDS: PIPERACILLIN-TAZOBACTAM 3.375 GM in SODIUM CHLORIDE 0.9% 100 ML IVPB SCH (08:02)
[2020-02-19] MEDS: SENNOSIDES 8.6 MG TAB PO SCH (08:02)
[2020-02-19] MEDS: TAMSULOSIN 0.4 MG CAP.ER.24H PO SCH (08:02)
[2020-02-19] MEDS: PANTOPRAZOLE 40 MG/10 ML VIAL IVP SCH (08:03)
[2020-02-19] MEDS: MONTELUKAST 10 MG TAB PO SCH (08:03)
[2020-02-19] MEDS: ALLOPURINOL 100 MG TAB PO SCH (08:03)
[2020-02-19] MEDS: CARBIDOPA-LEVODOPA 10-100 MG 1 EACH TAB PO SCH (08:03)
[2020-02-19] MEDS: AMIODARONE 200 MG TAB PO SCH (08:03)
--- NOTE | 2020-02-20 10:49 | CDI ---
Documentation Clarification Form Date: 02/20/20 From: Marni Longo CCS Phone: If you have a question about this query, please contact Lauren Hall, Computer Peripheral Equipment Operator at [phone] between 8am and 5pm. Admit Date: 01/29/20 Discharge Date:02/19/20 Patient Name: Sunil Long Visit Number: [id number] ATTENTION: The Clinical Documentation Specialists (CDI) and [facility] Coding Staff appreciate your assistance in clarifying documentation. Please respond to the clarification below the line at the bottom and electronically sign. The CDI & [facility] Coding staff will review the response and follow-up if needed. Please note: Queries are made part of the Legal Health Record. If you have any questions, please contact the author of this message via ITS. Dear Dr. Bynum, The patient presented with acute exacerbation systolic CHF. Hospital acquired pressure injury to bilateral buttocks stage II is documented in the wound care notes beginning 02/07. History/Risk Factors: DM, HTN, CKD, ATN, ARF, Septic shock, PCM Clinical Indicators: Pressure ulcer stage II bilateral buttocks Treatment: Zinc cream In your professional opinion, can you please clarify if you agree with hospital acquired pressure ulcer bilateral buttocks stage II? Pressure ulcer bilateral buttocks stage II, not POA Pressure ulcer bilateral buttocks stage II, ruled out Other, please specify Unable to determine MTDD
--- NOTE | 2020-02-21 16:44 | CDI ---
Documentation Clarification Form Date: 02/21/20 From: Marni Longo CCS Phone: If you have a question about this query, please contact Lauren Hall, Tombstone Setter at [phone] between 8am and 5pm. Admit Date: 01/29/20 Discharge Date:02/19/20 Patient Name: Sunil Long Visit Number: [id number] ATTENTION: The Clinical Documentation Specialists (CDI) and [facility] Coding Staff appreciate your assistance in clarifying documentation. Please respond to the clarification below the line at the bottom and electronically sign. The CDI & [facility] Coding staff will review the response and follow-up if needed. Please note: Queries are made part of the Legal Health Record. If you have any questions, please contact the author of this message via ITS. Dear Dr. Bynum, The patient presented with acute exacerbation systolic CHF. Hospital acquired pressure injury to bilateral buttocks stage II is documented in the wound care notes beginning 02/07. History/Risk Factors: DM, HTN, CKD, ATN, ARF, Septic shock, PCM Clinical Indicators: Pressure ulcer stage II bilateral buttocks Treatment: Zinc cream In your professional opinion, can you please clarify if you agree with hospital acquired pressure ulcer bilateral buttocks stage II? Pressure ulcer bilateral buttocks stage II, not POA Pressure ulcer bilateral buttocks stage II, ruled out Other, please specify Unable to determine MTDD
--- NOTE | 2020-02-24 08:44 | DS ---
DISCHARGE SUMMARY ADDENDUM: Please add to discharge summary: Stage II bilateral buttocks pressure ulcers. MMODL / IJN: [id number] /
--- NOTE | 2020-02-28 08:19 | CDI ---
Documentation Clarification Form Date: 02/28/20 From: Marni Longo CCS Phone: If you have a question about this query, please contact Lauren Hall, Home Advisor at [phone] between 8am and 5pm. Admit Date: 01/29/20 Discharge Date:02/19/20 Patient Name: Sunil Long Visit Number: [id number] ATTENTION: The Clinical Documentation Specialists (CDI) and [facility] Coding Staff appreciate your assistance in clarifying documentation. Please respond to the clarification below the line at the bottom and electronically sign. The CDI & [facility] Coding staff will review the response and follow-up if needed. Please note: Queries are made part of the Legal Health Record. If you have any questions, please contact the author of this message via ITS. Dear Dr. Bynum, The patient has uncontrolled diabetes documented in PNs 01/30.-02/15, Consult 01/29: History/Risk Factors: DM foot infection, HHD, DOMO, Sepsis Clinical Indicators: Uncontrolled DM with abnormal glucose Labs: Glucose 161, 141, 180 Treatment: Insulin SQ Q 4H, Q12H In order to capture the severity of Illness and necessary documentation specificity, please clarify: Diabetes with hyperglycemia Diabetes with hypoglycemia Other, please specify Unable to Determine MTDD
--- NOTE | 2020-03-01 07:15 | DS ---
DISCHARGE SUMMARY Please add: Uncontrolled diabetes mellitus with hyperglycemia. MMODL / IJN: [id number] /
== END 2020-02-19 11:25 | disposition expired | DRG 291 ==
LOC: EC 14:18 → 3SCARD 16:48 → 2SICU 02-02 09:53 → 3SCARD 02-17 10:34
PROVIDERS: ADMIT Family Medicine; ATTEND Family Medicine
PROC: 0BH17EZ Insertion of Endotracheal Airway into Trachea, Via Natural or Artificial Opening (ICD-10-PCS; 2020-02-02)
PROC: 5A1955Z Respiratory Ventilation, Greater than 96 Consecutive Hours (ICD-10-PCS; 2020-02-02)
PROC: 0DH67UZ Insertion of Feeding Device into Stomach, Via Natural or Artificial Opening (ICD-10-PCS; 2020-02-02)
PROC: 03HY32Z Insertion of Monitoring Device into Upper Artery, Percutaneous Approach (ICD-10-PCS; principal; 2020-02-03)
PROC: 4A133B1 Monitoring of Arterial Pressure, Peripheral, Percutaneous Approach (ICD-10-PCS; 2020-02-03)
PROC: 4A133J1 Monitoring of Arterial Pulse, Peripheral, Percutaneous Approach (ICD-10-PCS; 2020-02-03)
PROC: 02H633Z Insertion of Infusion Device into Right Atrium, Percutaneous Approach (ICD-10-PCS; 2020-02-03)
PROC: 02HV33Z Insertion of Infusion Device into Superior Vena Cava, Percutaneous Approach (ICD-10-PCS; 2020-02-03)
PROC: 3E0G76Z Introduction of Nutritional Substance into Upper GI, Via Natural or Artificial Opening (ICD-10-PCS; 2020-02-03)
PROC: 5A12012 Performance of Cardiac Output, Single, Manual (ICD-10-PCS; 2020-02-03)
PROC: 5A1D70Z Performance of Urinary Filtration, Intermittent, Less than 6 Hours Per Day (ICD-10-PCS; 2020-02-03)
PROC: 3E043XZ Introduction of Vasopressor into Central Vein, Percutaneous Approach (ICD-10-PCS; 2020-02-03)
DX: I13.2 Hypertensive heart and chronic kidney disease with heart failure and with stage 5 chronic kidney disease, or end stage renal disease (principal); N17.0 Acute kidney failure with tubular necrosis; J96.21 Acute and chronic respiratory failure with hypoxia; I50.23 Acute on chronic systolic (congestive) heart failure; J96.22 Acute and chronic respiratory failure with hypercapnia; R65.21 Severe sepsis with septic shock; R40.2314 Coma scale, best motor response, none, 24 hours or more after hospital admission; R40.2114 Coma scale, eyes open, never, 24 hours or more after hospital admission; R40.2214 Coma scale, best verbal response, none, 24 hours or more after hospital admission; J69.0 Pneumonitis due to inhalation of food and vomit; A41.9 Sepsis, unspecified organism; G93.41 Metabolic encephalopathy; N18.6 End stage renal disease; E44.1 Mild protein-calorie malnutrition; I47.2 Ventricular tachycardia; G93.1 Anoxic brain damage, not elsewhere classified; E87.2 Acidosis; D68.59 Other primary thrombophilia; T82.590A Other mechanical complication of surgically created arteriovenous fistula, initial encounter; K92.0 Hematemesis; L97.528 Non-pressure chronic ulcer of other part of left foot with other specified severity; L03.115 Cellulitis of right lower limb; K56.7 Ileus, unspecified; I48.21 Permanent atrial fibrillation; J98.11 Atelectasis; N39.0 Urinary tract infection, site not specified; Z20.828 Contact with and (suspected) exposure to other viral communicable diseases; Z66 Do not resuscitate; Z51.5 Encounter for palliative care; R56.9 Unspecified convulsions; J44.9 Chronic obstructive pulmonary disease, unspecified; I27.29 Other secondary pulmonary hypertension; D69.6 Thrombocytopenia, unspecified; I49.5 Sick sinus syndrome; L89.322 Pressure ulcer of left buttock, stage 2; L89.312 Pressure ulcer of right buttock, stage 2; E11.42 Type 2 diabetes mellitus with diabetic polyneuropathy; D63.1 Anemia in chronic kidney disease; E83.9 Disorder of mineral metabolism, unspecified; E11.628 Type 2 diabetes mellitus with other skin complications; E11.43 Type 2 diabetes mellitus with diabetic autonomic (poly)neuropathy; E11.621 Type 2 diabetes mellitus with foot ulcer; G93.89 Other specified disorders of brain; E11.22 Type 2 diabetes mellitus with diabetic chronic kidney disease; I49.01 Ventricular fibrillation; I46.2 Cardiac arrest due to underlying cardiac condition; E11.65 Type 2 diabetes mellitus with hyperglycemia; E66.01 Morbid (severe) obesity due to excess calories; Z79.4 Long term (current) use of insulin; M19.90 Unspecified osteoarthritis, unspecified site; E78.5 Hyperlipidemia, unspecified; K21.9 Gastro-esophageal reflux disease without esophagitis; G89.29 Other chronic pain; R40.2362 Coma scale, best motor response, obeys commands, at arrival to emergency department; R40.2142 Coma scale, eyes open, spontaneous, at arrival to emergency department; R40.2252 Coma scale, best verbal response, oriented, at arrival to emergency department; L03.032 Cellulitis of left toe; I08.3 Combined rheumatic disorders of mitral, aortic and tricuspid valves; K31.89 Other diseases of stomach and duodenum; E87.5 Hyperkalemia; N50.89 Other specified disorders of the male genital organs; I25.5 Ischemic cardiomyopathy; M10.9 Gout, unspecified; B96.89 Other specified bacterial agents as the cause of diseases classified elsewhere; I25.10 Atherosclerotic heart disease of native coronary artery without angina pectoris; K31.84 Gastroparesis; Z68.32 Body mass index [BMI] 32.0-32.9, adult; Z71.3 Dietary counseling and surveillance; Z79.899 Other long term (current) drug therapy; Z79.01 Long term (current) use of anticoagulants; Z87.440 Personal history of urinary (tract) infections; Z96.1 Presence of intraocular lens; Z86.19 Personal history of other infectious and parasitic diseases; Z87.11 Personal history of peptic ulcer disease; Z95.0 Presence of cardiac pacemaker; Z90.49 Acquired absence of other specified parts of digestive tract; Z98.890 Other specified postprocedural states; Z98.42 Cataract extraction status, left eye; Z98.41 Cataract extraction status, right eye; Z96.651 Presence of right artificial knee joint; Z87.891 Personal history of nicotine dependence; Z91.81 History of falling; Z87.2 Personal history of diseases of the skin and subcutaneous tissue; Z88.8 Allergy status to other drugs, medicaments and biological substances; Z88.0 Allergy status to penicillin; Z83.3 Family history of diabetes mellitus
CPT/HCPCS: 36415; 36600; 70450; 71045; 71046; 74176; 80048; 80053; 80164; 80165; 80202; 81001; 82140; 82271; 82607; 82728; 82746; 82805; 83540; 83550; 83605; 83735; 83880; 84100; 84443; 84484; 85025; 85027; 85379; 85610; 85730; 86706; 87070; 87086; 87205; 87340; 87635; 90935; 93005; 93306; 94002; 94003; 94640; 94760; 95816; 96374; 99285